=== PATIENT | female | born 1960 | race African-American/Black ===

== ENCOUNTER 2016-08-14 10:47 | Inpatient (IN) | payer OTHER ==
--- NOTE | 2016-08-14 11:00 | PDOC ---
[id number] No Limitations - History of Present Illness Initial Comments: 08/14/16 11:40 CHIEF COMPLAINT: Worsening of slurring of speech PCP: Dr. Kenneth Izquierdo HISTORY OF PRESENT ILLNESS: 55 year old female was sent to the ED from [facility] with chief complaints of worsening of slurring of speech. A/c to the patient, she had head surgery in March, for SDH. Since then she developed slurring of speech. Patient also reports to have burning sensation from right temporal area towards the back of her ears since the head surgery. She grades the pain as 8/10; non radiating, on/off, not associated with headache, dizziness, blurring of vision. Patient also reports to have abdominal pain since 10days, located in the epigastric area radiating towards the left upper quadrant, cramping in nature, on/off, relieved when sitting and aggravated on bending. Abdominal pain is associated with diarrhoea, 6-7 times/day since a week, small in amount, no blood noticed. Patient has not stopped drinking or smoking. Last drink was this morning. Bladder habit normal. Appetite decreased. Sleep disturbed. Patient mentions she hasn't been able to visit Dr. Morrissey because of insurance issues. Patient also would like to quit smoking and alcohol, would like to go to rehab, but says nobody has helped her get a rehab. Recent Travel: None PAST MEDICAL HISTORY: Hypertension, Hyperlipidemia, COPD, SDH (s/p craniotomy), depression/anxiety, Mitral valve repair PAST SURGICAL HISTORY: As mentioned above Social History: Smoking: Current smoker, 1pack/30yrs Alcohol: 1/2 bottle of vodka since 20 yrs Drugs: No use of illicit drugs Family History: Unknown Allergies: NKDA <Izzy Buenrostro - Last Filed: 08/14/16 17:42> <Aniyah Samayoa - Last Filed: 08/17/16 08:23> - General Chief Complaint: Headache Stated Complaint: POST OP, HEADACHE Time Seen by Provider: 08/14/16 11:00 Past History - Past Medical History Anemia: No Asthma: No Cancer: No Cardiac Disorders: Yes (CABG) CVA: No COPD: No CHF: No Dementia: No Diabetes: No GI Disorders: No Disorders: No HTN: Yes Hypercholesterolemia: Yes Liver Disease: No Psychiatric Problems: Yes (panic attacks) Suicide Attempt (Hx): No Seizures: No Thyroid Disease: No - Surgical History Abdominal Surgery: No Appendectomy: No Cardiac Surgery: Yes (01/2012 annuloplasty ring, cabg) Cholecystectomy: No Lung Surgery: No Neurologic Surgery: (BLEED S/P FALL) Orthopedic Surgery: No - Immunization History Immunization Up to Date: No - Psycho/Social/Smoking Cessation Hx Anxiety: No Suicidal Ideation: No Smoking Status: Yes Smoking History: Current every day smoker Have you smoked in the past 12 months: Yes Number of Cigarettes Smoked Daily: 20 Information on smoking cessation initiated: No 'Breaking Loose' booklet given: 04/18/16 Hx Alcohol Use: Yes (2 CUPS VODKA DAILY) Drug/Substance Use Hx: No Substance Use Type: Alcohol Hx Substance Use Treatment: No <Izzy Buenrostro - Last Filed: 08/14/16 17:42> <Aniyah Samayoa - Last Filed: 08/17/16 08:23> - Past Medical History Allergies/Adverse Reactions: Allergies Allergy/AdvReac Type Severity Reaction Status Date / Time No Known Allergies Allergy Verified 08/14/16 10:55 Home Medications: Ambulatory Orders NK [No Known Home Medication] 08/14/16 Review of Systems - Review of Systems Able to Perform ROS?: Yes Comments:: 08/14/16 11:56 CONSTITUTIONAL: Present: generalized weakness, malaise, loss of appetite Absent: fever, chills, diaphoresis, HEENT: Absent: rhinorrhea, nasal congestion, throat pain, throat swelling, difficulty swallowing, mouth swelling, ear pain, eye pain, visual Changes CARDIOVASCULAR: Absent: chest pain, syncope, palpitations, irregular heart rate, lightheadedness , peripheral edema RESPIRATORY: Absent: cough, shortness of breath, dyspnea with exertion, orthopnea, wheezing, stridor, hemoptysis GASTROINTESTINAL: Present: abdominal pain, diarrhea Absent:, abdominal distension, nausea, vomiting, constipation, melena, hematochezia GENITOURINARY: Absent: dysuria, frequency, urgency, hesitancy, hematuria, flank pain, genital pain MUSCULOSKELETAL: Absent: myalgia, arthralgia, joint swelling SKIN: Absent: rash, itching, pallor HEMATOLOGIC/IMMUNOLOGIC: Absent: easy bleeding, easy bruising, lymphadenopathy, frequent infections ENDOCRINE: Absent: unexplained weight gain, unexplained weight loss, heat intolerance, cold intolerance NEUROLOGIC: Present: unsteady gait Absent: headache, focal weakness or paresthesias, dizziness, seizure, mental status changes, bladder or bowel incontinence PSYCHIATRIC: Absent: anxiety, depression, suicidal or homicidal ideation, hallucinations. Is the patient limited Finnish proficient: No <Izzy Buenrostro - Last Filed: 08/14/16 17:42> *Physical Exam - Vital Signs Last Vital Signs Temp Pulse Resp BP Pulse Ox 97.7 F 113 H 18 119/83 97 08/14/16 10:50 08/14/16 10:50 08/14/16 10:50 08/14/16 10:50 08/14/16 10:50 - Physical Exam Comments: 08/14/16 12:01 PE: GENERAL: Awake, alert, and fully oriented, in no acute distress HEAD: surgical scar tejas on the left temporal area. EYES: EOM intact, muddy sclera, no pallor ENT: Auricles normal inspection, hearing grossly normal, nares patent, oropharynx clear without exudates. Moist mucosa NECK: Normal ROM, supple, no lymphadenopathy, JVD, or masses LUNGS: Breath sounds equal, clear to auscultation bilaterally. No wheezes, and no crackles. HEART: surgical scar tejas (MVP repair), Tachycardic, Regular rate and rhythm, normal S1 and S2, Systolic murmur ABDOMEN: Soft, tenderness on palpation over the epigastric area, left upper abdomen, normoactive bowel sounds. No guarding, no rebound. No masses EXTREMITIES: Normal range of motion, no edema. No clubbing or cyanosis. No cords, erythema, or tenderness NEUROLOGICAL: Cranial nerves II through XII grossly intact. Slurred speech while completing a full sentence, speech clear, normal articulation. SKIN: Warm, Dry, normal turgor, no rashes or lesions noted. <Izzy Buenrostro - Last Filed: 08/14/16 17:42> - Vital Signs Last Vital Signs Temp Pulse Resp BP Pulse Ox 98.4 F 91 H 18 127/81 100 08/17/16 06:05 08/17/16 06:05 08/17/16 06:05 08/17/16 06:05 08/16/16 21:00 <Aniyah Samayoa - Last Filed: 08/17/16 08:23> ED Treatment Course - LABORATORY CBC & Chemistry Diagram: 08/14/16 11:40 08/14/16 11:40 <Izzy Buenrostro - Last Filed: 08/14/16 17:42> - LABORATORY CBC & Chemistry Diagram: 08/16/16 06:00 08/16/16 06:00 - ADDITIONAL ORDERS Additional order review: 08/14/16 08/14/16 08/14/16 15:07 13:52 11:40 RBC 3.08 L D MCV 109.4 H MCHC 33.4 RDW 16.4 H MPV 9.3 Neutrophils % 58.8 Lymphocytes % 33.2 D Monocytes % 7.1 Eosinophils % 0.6 Basophils % 0.3 POC Glucometer 61.76008 < 50 - RADIOLOGY Radiology Studies Ordered: Category Date Time Status HEAD CT WITHOUT CONTRAST [CT] Stat CT Scan 08/14/16 15:30 Completed CHEST X-RAY PORTABLE* [RAD] Stat Radiology 08/14/16 12:55 Completed - Medications Given in the ED: ED Medications Discontinued Medications Generic Name Dose Route Start Last Admin Trade Name Tha PRN Reason Stop Dose Admin Al Hydroxide/Mg Hydroxide 30 ml 08/14/16 18:30 08/14/16 19:54 Mylanta Oral Suspension - PO 08/14/16 18:31 30 ml ONCE ONE Administration Dextrose 50 ml 08/14/16 12:26 08/14/16 12:27 D50w (Vial) - IVPUSH 08/14/16 12:27 50 ml NOW ONE Administration Dextrose 50 ml 08/14/16 13:54 08/14/16 13:55 D50w (Vial) - IVPUSH 08/14/16 13:55 50 ml NOW ONE Administration Folic Acid 1 mg/ Thiamine HCl 1,000 mls @ 100 mls/hr 08/14/16 11:37 08/14/16 12 :33 100 mg/ Multivitamins/Minerals IVPB 08/14/16 21:36 100 mls/hr 10 ml/ Sodium Chloride ONCE ONE Administration Potassium Chloride 100 mls @ 100 mls/hr 08/14/16 13:00 08/14/16 17:45 Potassium Chloride 10 Meq Premix Ivpb - IVPB 08/14/16 15:59 100 mls/hr Q60M DK Administration Sodium Chloride 1,000 mls @ 100 mls/hr 08/14/16 13:15 08/14/16 14:05 Normal Saline - IV 100 mls/hr ASDIR DK Administration Dextrose/Sodium Chloride 1,000 mls @ 83 mls/hr 08/14/16 14:30 08/15/16 17:12 D5-Ns - IV Not Given ASDIR DK Dextrose/Sodium Chloride 1,000 mls @ 75 mls/hr 08/15/16 15:28 08/15/16 15:29 D5-1/2ns - IV 08/16/16 04:47 75 mls/hr ASDIR ONE Administration Dextrose/Sodium Chloride 1,000 mls @ 75 mls/hr 08/15/16 21:50 08/16/16 00:00 D5-1/2ns - IV 08/16/16 11:09 75 mls/hr ASDIR ONE Administration Potassium Chloride 100 mls @ 100 mls/hr 08/15/16 23:15 08/16/16 03:19 Potassium Chloride 10 Meq Premix Ivpb - IVPB 08/16/16 02:14 100 mls/hr Q1H DK Administration Lorazepam 1.5 mg 08/15/16 06:00 08/16/16 15:07 Ativan - PO 1.5 mg TID DK Administration Potassium Chloride 40 meq 08/15/16 23:15 08/15/16 23:53 K-Dur - PO 08/15/16 23:16 40 meq ONCE ONE Administration <Aniyah Samayoa - Last Filed: 08/17/16 08:23> Medical Decision Making - Medical Decision Making 08/14/16 12:05 Patient seen and examined at bed side. Patient looks frustrated because of slurring of speech. Vitals unremarkable. Will order CbC, CMP, Magnesium, Phosphorus, Alcohol level, UA, Lipase IV Banana bag. Social service request once she gets admitted. 08/14/16 13:47 Patient reassessed. No complaints. Vitals noted, wnl. Labs noted: Hypokalemia ( 3.1), AG-24, Lipase high, Serum Alcohol +, ketones Ordered ABG which shows: Metabolic acidosis 08/14/16 15:30 Assessment/Plan: Alcoholic ketoacidosis Admit the patient in ICU for further evaluation Head CT done, report pending Spoke with Dr. Colon and Dr. Montaño, they accepted the patient. Illness, Investigation and plan of care explained to the patient. She verbalized understanding. Case seen and discussed with Dr. Samayoa. <Izzy Buenrostro - Last Filed: 08/14/16 17:42> - Critical Care Time Total Critical Care Time (minutes): 40 Critical Care Statement: The care of this patient involved high complexity decision making to prevent further life threatening deterioration of the patient 's condition and/or to evalute & treat vital organ system(s) failure or risk of failure. <Aniyah Samayoa - Last Filed: 08/17/16 08:23> *DC/Admit/Observation/Transfer - Discharge Dispostion Admit: Yes <Izzy Buenrostro - Last Filed: 08/14/16 17:42> <Aniyah Samayoa - Last Filed: 08/17/16 08:23> Diagnosis at time of Disposition: Alcoholic ketoacidosis, Alcohol dependence - Referrals
--- NOTE | 2016-08-14 11:08 | PDOC ---
Attending Attestation - Resident Resident Name: Izzy Buenrostro - ED Attending Attestation I have performed the following: I have examined & evaluated the patient, The case was reviewed & discussed with the resident, I agree w/resident's findings & plan, Exceptions are as noted - HPI HPI: 55 yo F history EtOH abuse sent by [facility]. She was seeking detox this morning , but was ill-appearing and noted to have slurred speech, so she was referred to ED. She states that she drinks vodka every single day, withdraws if she does not. Last drink this morning. She also smokes 1 PPD. She does not eat well according to her significant other, at the bedside. She denies any pain. He became concerned when her speech continued to be slurred this morning. - Physicial Exam PE: GENERAL: Awake, alert, and fully oriented, in no acute distress. Cachectic. HEAD: No signs of trauma EYES: PERRLA, EOMI, sclera anicteric, conjunctiva clear ENT: Auricles normal inspection, hearing grossly normal, nares patent, oropharynx clear without exudates. Moist mucosa NECK: Normal ROM, supple, no lymphadenopathy, JVD, or masses LUNGS: Breath sounds equal, clear to auscultation bilaterally. No wheezes, and no crackles HEART: Regular rate and rhythm, normal S1 and S2, no murmurs, rubs or gallops ABDOMEN: Soft, nontender, normoactive bowel sounds. No guarding, no rebound. No masses EXTREMITIES: Normal range of motion, no edema. No clubbing or cyanosis. No cords, erythema, or tenderness NEUROLOGICAL: Cranial nerves II through XII grossly intact. +Slurred speech. Motor and sensation grossly intact. SKIN: Warm, Dry, normal turgor, no rashes or lesions noted. - Medical Decision Making Patient is cachectic, appears chronically ill. She has tachycardia and slurred speech on exam. Labs show hypoglycemia, hypokalemia, elevated lipase (chronic per chart review). She has elevated anion gap, +acetone and +lactic acid, which suggests possibly a combination of AKA/lactic acidosis. Patient has had multiple hypoglycemic episodes despite eating a tray of food. Fluids were changed to D5NS. Will require ICU monitoring.
[2016-08-14] MEDS ORDERED: FOLIC ACID INJECTION - 1 MG, THIAMINE HCL 100 MG, MULTIVIT INJECTION ADULT 10 ML in SOD... IVPB ONE (11:37)
[2016-08-14 11:59] LABS: BASOPHIL 0.3 % (0-2.0); EOSINOPHIL 0.6 % (0-4.5); MCH 36.5 pg (25.7-33.7); MCHC 33.4 g/dl (32.0-36.0); MEAN CELL VOLUME 109.4 fl (80-96); MEAN PLT VOLUME 9.3 fl (7.5-11.1); NEUTROPHILS 58.8 % (42.8-82.8); PLATELET COUNT 138 K/MM3 (134-434); RDW 16.4 % (11.6-15.6); WHITE BLOOD COUNT 9.5 K/mm3 (4.0-10.0)
[2016-08-14 12:21] LABS: INR 1.07 (0.82-1.09); PROTHROMBIN TIME (PATIENT) 11.8 SEC (9.98-11.88)
[2016-08-14 12:23] LABS: ALBUMIN 4.3 g/dl (3.4-5.0); ANION GAP 24 (8-16); BILIRUBIN,TOTAL 0.4 mg/dL (0.2-1.0); CALCIUM 8.3 mg/dL (8.5-10.1); CO2 15 mmol/L (21-32); CREATININE 0.7 mg/dL (0.55-1.02); SGPT/ALT 23 U/L (12-78)
[2016-08-14 12:24] LABS: ALK PHOS 132 U/L (45-117)
[2016-08-14 12:25] LABS: MAGNESIUM 1.6 mg/dL (1.8-2.4); SGOT/AST 54 U/L (15-37)
[2016-08-14 12:26] LABS: GLUCOSE,RANDOM 27 mg/dL (74-106)
[2016-08-14] MEDS ORDERED: DEXTROSE 50%-WATER 50 ML VIAL IVPUSH ONE ×2 (12:26→13:54)
[2016-08-14] MEDS ORDERED: DEXTROSE 50%-WATER 50 ML DISP.SYRIN ONE ×2 (12:27→13:55)
[2016-08-14] MEDS ORDERED: SODIUM CHLORIDE 1,000 ML IV SCH (13:15)
[2016-08-14 13:26] LABS: ANISOCYTOSIS 1+; STOMATOCYTE 4+
[2016-08-14 13:40] LABS: ARTERIAL BLD GAS O2 SATURATION 94.7 % (90-98.9); ARTERIAL BLOOD GAS BASE EXCESS -16.2 meq/l (-2-2); ARTERIAL BLOOD GAS PO2 90.2 mmHg (80-100)
[2016-08-14 13:41] LABS: ALLENS TEST POSITIVE; ART PUNCT SITE RIGHT BRACHIAL; LPM/O2% 21%; PT. ON O2? NO; TYPE OF O2 ROOM AIR
[2016-08-14 13:42] LABS: ARTERIAL BLOOD GAS pH 7.26 (7.35-7.45)
[2016-08-14 13:43] LABS: ARTERIAL BLOOD GAS HCO3 9.3 meq/L (22-26)
[2016-08-14] MEDS ORDERED: KCL 10 MEQ IVPB 300 ML IVPB ONE (13:55)
[2016-08-14] MEDS: KCL 10 MEQ IVPB 100 ML IVPB SCH ×3 (14:30→17:45)
[2016-08-14 17:31] LABS: URINE APPEARANCE CLEAR; URINE BILIRUBIN NEGATIVE (NEGATIVE); URINE COLOR LTYELLOW; URINE GLUCOSE (UA) NEGATIVE (NEGATIVE); URINE KETONE 1+ (NEGATIVE); URINE LEUK ESTERASE NEGATIVE (NEGATIVE); URINE NITRITE NEGATIVE (NEGATIVE); URINE PROTEIN NEGATIVE (NEGATIVE); URINE UROBILINOGEN NEGATIVE E.U./dl (0.2-1.0)
[2016-08-14 17:32] LABS: URINE BLOOD 1+ (NEGATIVE)
[2016-08-14 17:37] LABS: URINE HYALINE CAST 2 /lpf; URINE MUCUS RARE; URINE RBC <1 /hpf (0-3); URINE WBC <1 /hpf (3-5)
[2016-08-14] MEDS: DEXTROSE 5%-NORMAL SALINE 1,000 ML IV SCH (17:45)
[2016-08-14] MEDS ORDERED: MAG HYDROX/AL HYDROX/SIMETH 30 ML UNIT-DOSE CUP PO ONE (18:30)
[2016-08-14] MEDS ORDERED: MAG HYDROX/AL HYDROX/SIMETH 30 ML UNIT-DOSE CUP ONE (19:38)
--- NOTE | 2016-08-14 23:13 | HP ---
Admitting History and Physical - Admission Chief Complaint: Slurred speech History of Present Illness: Pt is a 55 y/o female w/ multiple medical problems including head injury about 1 yr ago w/ resultant SDH and residual NELSON/slurred speech/ear pain/neck pain. Pt was sent to the ER bc of ?slurred speech [id number] pt was found to have glucose of 27. In the ER pt also complained of abdominal pain w/ an intensity of at 8/10. This abdominal pain was epigastric and LUQ and had episodes of nausea and vomiting. She was found to have elevated lipase and admitted top etoh abuse. Pt has been in rehab before and wants to go again. She drinks about pint of vodka a day and her last drink was on 08/14/16. History Source: Patient - Past Medical History HOSPITAL ADMINISTRATOR: Yes: Seizure, Other (SDH) Cardiovascular: Yes: HTN, Hyperlipdemia Pulmonary: Yes: COPD Gastrointestinal: Yes: Pancreatitis Heme/Onc: Yes: Anemia Psych: Yes: Addictions, Anxiety, Depression, Other (ETOH abuse) - Past Surgical History Additional Past Surgical History: Craniotomy Mitral valve replacement - Smoking History Smoking history: Current every day smoker Have you smoked in the past 12 months: Yes Aproximately how many cigarettes per day: 20 - Alcohol/Substance Use Hx Alcohol Use: Yes (2 CUPS VODKA DAILY) - Social History ADL: Independent History of Recent Travel: No Home Medications - Allergies Allergies/Adverse Reactions: Allergies Allergy/AdvReac Type Severity Reaction Status Date / Time No Known Allergies Allergy Verified 08/14/16 10:55 - Home Medications Home Medications: Ambulatory Orders NK [No Known Home Medication] 08/14/16 Family Disease History - Family Disease History Family History: Unremarkable Family Disease History: Diabetes: Father, Mother, Brother Review of Systems - Review of Systems Constitutional: reports: Lethargy, Loss of Appetite, Weakness Eyes: reports: No Symptoms HENT: reports: No Symptoms Neck: reports: Other (Neck pain wc radiates to parietal scalp and rt ear) Cardiovascular: reports: No Symptoms Respiratory: reports: No Symptoms Gastrointestinal: reports: Abdominal Pain, Diarrhea, Nausea, Vomiting Genitourinary: reports: No Symptoms Breasts: reports: No Symptoms Reported Musculoskeletal: reports: No Symptoms Neurological: reports: No Symptoms Psychiatric: reports: Anxiety, Depression Physical Examination Vital Signs: Vital Signs Temperature 97.7 F 08/14/16 10:50 Pulse Rate 108 H 08/14/16 17:51 Respiratory Rate 18 08/14/16 17:51 Blood Pressure 152/88 08/14/16 17:51 O2 Sat by Pulse Oximetry (%) 96 08/14/16 17:51 Constitutional: Yes: Poor Hygeine HENT: Yes: WNL Neck: Yes: WNL Cardiovascular: Yes: WNL, Other ((+) MARSHALL at [facility]) Gastrointestinal: Yes: WNL, Normal Bowel Sounds, Soft Breast(s): Yes: WNL Musculoskeletal: Yes: WNL Extremities: Yes: WNL Neurological: Yes: WNL, Alert, Oriented Problem List - Problems (1) Alcohol dependence with uncomplicated withdrawal Assessment/Plan: ETOH taper w/ ativan for alcohol w/drawal syndrome Cont IVF Cont thiamine/folic acid Will get rehab consult Code(s): F10.230 - ALCOHOL DEPENDENCE WITH WITHDRAWAL, UNCOMPLICATED (2) Alcoholic ketoacidosis Assessment/Plan: Cont IVF Code(s): E87.2 - ACIDOSIS (3) Pancreatitis Assessment/Plan: ETOH induced Repeat lipase/amylase May need US abd Cont full liquids Cont IVF and pain management Code(s): K85.9 - ACUTE PANCREATITIS, UNSPECIFIED * DO NOT USE * (4) Anxiety and depression Assessment/Plan: Pt is not on any meds Code(s): F41.9 - ANXIETY DISORDER, UNSPECIFIED F32.9 - MAJOR DEPRESSIVE DISORDER, SINGLE EPISODE, UNSPECIFIED (5) Hypokalemia Code(s): E87.6 - HYPOKALEMIA (6) Seizure Assessment/Plan: ?not on any meds Will need to check Code(s): R56.9 - UNSPECIFIED CONVULSIONS (7) Subdural hematoma Code(s): I62.00 - NONTRAUMATIC SUBDURAL HEMORRHAGE, UNSPECIFIED (8) H/O mitral valve repair Code(s): Z98.89 - OTHER SPECIFIED POSTPROCEDURAL STATES * DO NOT USE *
--- NOTE | 2016-08-15 00:33 | EKG ---
Test Reason : Blood Pressure : / mmHG Vent. Rate : 124 BPM Atrial Rate : 124 BPM P-R Int : 128 ms QRS Dur : 072 ms QT Int : 338 ms P-R-T Axes : 074 067 075 degrees QTc Int : 485 ms SINUS TACHYCARDIA POSSIBLE LEFT ATRIAL ENLARGEMENT CANNOT RULE OUT SEPTAL INFARCT , AGE UNDETERMINED ABNORMAL ECG WHEN COMPARED WITH ECG OF 14-JUN-2016 11:06, T WAVE VARIATION Confirmed by JOSELIN MARIE MD ([id number]) on 08/15/2016 12:33:07 AM Referred By: Confirmed By:JOSELIN MARIE MD
[2016-08-15] MEDS ORDERED: ONDANSETRON 4 MG/2 ML VIAL IVPB PRN (02:49)
[2016-08-15] MEDS: THIAMINE HCL 100 MG TABLET (FP) PO SCH ×2 (03:12→10:27)
[2016-08-15] MEDS ORDERED: LORazepam 0.5 MG TABLET ONE ×2 (06:19→15:18)
[2016-08-15] MEDS: LORazepam 1 MG TABLET PO SCH ×3 (06:30→21:35)
[2016-08-15 07:00] LABS: BASOPHIL 0.3 % (0-2.0); MCH 36.5 pg (25.7-33.7); MCHC 33.8 g/dl (32.0-36.0); MEAN PLT VOLUME 9.4 fl (7.5-11.1); NEUTROPHILS 66.8 % (42.8-82.8); PLATELET COUNT 100 K/MM3 (134-434); RDW 15.8 % (11.6-15.6); WHITE BLOOD COUNT 5.1 K/mm3 (4.0-10.0)
[2016-08-15 07:27] LABS: ALBUMIN 3.6 g/dl (3.4-5.0); ALK PHOS 114 U/L (45-117); ANION GAP 16 (8-16); BILIRUBIN,TOTAL 0.7 mg/dL (0.2-1.0); CALCIUM 7.9 mg/dL (8.5-10.1); CO2 23 mmol/L (21-32); CREATININE 0.4 mg/dL (0.55-1.02); GLUCOSE,RANDOM 95 mg/dL (74-106); SGOT/AST 38 U/L (15-37); SGPT/ALT 17 U/L (12-78); TOT PROT 6.9 g/dl (6.4-8.2)
[2016-08-15] MEDS: PANTOPRAZOLE 40 MG TABLET (FP) PO SCH (10:28)
[2016-08-15] MEDS: FOLIC ACID 1 MG TABLET (FP) PO SCH (10:28)
[2016-08-15 11:50] VITALS: BMI 13.7
[2016-08-15] MEDS ORDERED: DEXTROSE 5%-0.45% SALINE 1,000 ML IV ONE ×2 (15:28→21:50)
--- NOTE | 2016-08-15 16:20 | EKG ---
Test Reason : Blood Pressure : / mmHG Vent. Rate : 100 BPM Atrial Rate : 100 BPM P-R Int : 122 ms QRS Dur : 076 ms QT Int : 386 ms P-R-T Axes : 072 060 078 degrees QTc Int : 497 ms NORMAL SINUS RHYTHM POSSIBLE LEFT ATRIAL ENLARGEMENT NONSPECIFIC ST AND T WAVE ABNORMALITY PROLONGED QT ABNORMAL ECG WHEN COMPARED WITH ECG OF 14-AUG-2016 15:00, NO SIGNIFICANT CHANGE WAS FOUND Confirmed by FRANK VILLA, JOSELIN ([id number]) on 08/15/2016 4:19:55 PM Referred By: Confirmed By:JOSELIN MARIE MD
[2016-08-15] MEDS: DEXTROSE 5%-NORMAL SALINE 1,000 ML IV SCH (17:12)
--- NOTE | 2016-08-15 17:23 | CONSULT ---
Consult Consult Specialty:: PULM/CCM Referred by:: NAEL Reason for Consultation:: AMS - History of Present Illness Chief Complaint: Slurred speech History of Present Illness: 55 F, daily Vodka intake, 1 PPD smoker, (?) SDH surgery 2016. Admitted from [facility] after she was thought to develop slurring of speech. Patient reports somewhat a chronic burning sensation from right temporal area towards the back of her ears since the head surgery. =She also reports mid epigastric abdominal pain for about 10 days. Also reports diarrhea. No travel history or sick contacts. No documented fever or chills. Noted to have significant electrolyte disturbance. Started on IVF resuscitation. Noted improvement in mental status. Patient is awake and alert. No CP or SOB. - History Source History Provided By: Patient Limitations to Obtaining History: Poor Historian - Past Medical History CLARIFIER: Yes: Seizure, Other (SDH) Cardio/Vascular: Yes: HTN, Hyperlipdemia Pulmonary: Yes: COPD Gastrointestinal: Yes: Pancreatitis Psych: Yes: Addictions, Anxiety, Depression - Past Surgical History Past Surgical History: Yes: None (Craniotomy) - Alcohol/Substance Use Hx Alcohol Use: Yes (2 CUPS VODKA DAILY) - Smoking History Smoking history: Current every day smoker Have you smoked in the past 12 months: Yes Aproximately how many cigarettes per day: 20 - Social History ADL: Independent History of Recent Travel: No Home Medications - Allergies Allergies/Adverse Reactions: Allergies Allergy/AdvReac Type Severity Reaction Status Date / Time No Known Allergies Allergy Verified 08/14/16 10:55 - Home Medications Home Medications: Ambulatory Orders NK [No Known Home Medication] 08/14/16 Family Disease History - Family Disease History Family Disease History: Diabetes: Father, Mother, Brother Review of Systems - Review of Systems Constitutional: reports: Malaise, Weakness. denies: Chills, Fever, Night Sweats , Unintentional Wgt. Loss Eyes: reports: No Symptoms HENT: reports: No Symptoms Neck: reports: No Symptoms Cardiovascular: denies: Chest Pain, Edema, Palpitations, Shortness of Breath Respiratory: reports: Cough. denies: Hemoptysis, SOB, SOB on Exertion, Wheezing Gastrointestinal: reports: Diarrhea, Nausea, Vomiting. denies: Melena, Rectal Bleeding, Vomiting Blood Genitourinary: reports: No Symptoms Breasts: reports: No Symptoms Reported Musculoskeletal: reports: Back Pain Integumentary: reports: No Symptoms Neurological: reports: Change in Speech, Headache. denies: Dizziness, Seizure Endocrine: reports: No Symptoms Hematology/Lymphatic: reports: No Symptoms Psychiatric: reports: No Symptoms Physical Exam Vital Signs: Vital Signs Temperature 98.4 F 08/15/16 07:41 Pulse Rate 88 08/15/16 11:36 Respiratory Rate 18 08/15/16 11:36 Blood Pressure 148/104 08/15/16 11:36 O2 Sat by Pulse Oximetry (%) 100 08/15/16 11:36 Constitutional: Yes: No Distress, Thin Eyes: Yes: Conjunctiva Clear, EOM Intact HENT: Yes: Atraumatic, Normocephalic Neck: Yes: Supple, Trachea Midline Cardiovascular: Yes: Regular Rate and Rhythm Respiratory: Yes: CTA Bilaterally Gastrointestinal: Yes: Normal Bowel Sounds, Soft, Tenderness, Epigastrium, Vomiting. No: Palpable Mass, Pulsatile Mass ...Rectal Exam: Yes: Deferred Musculoskeletal: Yes: WNL Extremities: Yes: WNL Edema: No Peripheral Pulses WNL: No Integumentary: Yes: WNL Neurological: Yes: Alert, Oriented ...Motor Strength: WNL Psychiatric: Yes: Alert, Oriented Labs: CBC, BMP 08/15/16 06:45 08/15/16 06:45 Imaging - Results Chest X-ray: Report Reviewed, Image Reviewed Problem List - Problems (1) Alcohol dependence Code(s): F10.20 - ALCOHOL DEPENDENCE, UNCOMPLICATED (2) Alcoholic ketoacidosis Code(s): E87.2 - ACIDOSIS (3) Alcohol dependence with uncomplicated withdrawal Code(s): F10.230 - ALCOHOL DEPENDENCE WITH WITHDRAWAL, UNCOMPLICATED (4) Anemia Code(s): D64.9 - ANEMIA, UNSPECIFIED (5) Anxiety and depression Code(s): F41.9 - ANXIETY DISORDER, UNSPECIFIED F32.9 - MAJOR DEPRESSIVE DISORDER, SINGLE EPISODE, UNSPECIFIED (6) Dehydration Code(s): E86.0 - DEHYDRATION (7) H/O mitral valve repair Code(s): Z98.89 - OTHER SPECIFIED POSTPROCEDURAL STATES * DO NOT USE * (8) Head injury, closed Code(s): S09.90XA - UNSPECIFIED INJURY OF HEAD, INITIAL ENCOUNTER Qualifiers: Encounter type: initial encounter Qualified Code(s): S09.90XA - Unspecified injury of head, initial encounter (9) Nausea vomiting and diarrhea Code(s): R11.2 - NAUSEA WITH VOMITING, UNSPECIFIED R19.7 - DIARRHEA, UNSPECIFIED (10) Seizure Code(s): R56.9 - UNSPECIFIED CONVULSIONS (11) Subdural hematoma Code(s): I62.00 - NONTRAUMATIC SUBDURAL HEMORRHAGE, UNSPECIFIED Assessment/Plan IVF Monitor for withdrawal No smoking VTE prophylaxis PO as tolerated No need for ICU at this time Will follow Thank you. Dr Farrell
[2016-08-15 22:30] LABS: BASOPHIL 0.4 % (0-2.0); MCH 36.8 pg (25.7-33.7); MCHC 34.6 g/dl (32.0-36.0); MEAN CELL VOLUME 106.3 fl (80-96); MEAN PLT VOLUME 8.7 fl (7.5-11.1); PLATELET COUNT 102 K/MM3 (134-434); RDW 15.3 % (11.6-15.6); WHITE BLOOD COUNT 3.9 K/mm3 (4.0-10.0)
[2016-08-15 22:49] LABS: ALBUMIN 3.3 g/dl (3.4-5.0); ANION GAP 13 (8-16); BILIRUBIN,TOTAL 0.5 mg/dL (0.2-1.0); CALCIUM 7.7 mg/dL (8.5-10.1); CO2 21 mmol/L (21-32); CREATININE 0.7 mg/dL (0.55-1.02); GLUCOSE,RANDOM 135 mg/dL (74-106); SGOT/AST 34 U/L (15-37); SGPT/ALT 16 U/L (12-78); TOT PROT 6.6 g/dl (6.4-8.2)
[2016-08-15 22:50] LABS: ALK PHOS 116 U/L (45-117)
[2016-08-15 23:04] LABS: AMYLASE 318 U/L (25-115)
[2016-08-15] MEDS ORDERED: POTASSIUM CHLORIDE TABS 20 MEQ TABLET.ER (FP) PO ONE (23:15)
[2016-08-15] MEDS: KCL 10 MEQ IVPB 100 ML IVPB SCH (23:53)
[2016-08-16] MEDS: KCL 10 MEQ IVPB 100 ML IVPB SCH ×2 (01:34→03:19)
[2016-08-16 04:24] LABS: ANISOCYTOSIS 1+; PLATELET ESTIMATE SLT DECREASED (NORMAL)
[2016-08-16] MEDS: LORazepam 1 MG TABLET PO SCH ×2 (05:27→15:07)
[2016-08-16 07:28] LABS: BASOPHIL 0.5 % (0-2.0); EOSINOPHIL 1.8 % (0-4.5); MCH 36.8 pg (25.7-33.7); MCHC 34.3 g/dl (32.0-36.0); MEAN PLT VOLUME 9.5 fl (7.5-11.1); PLATELET COUNT 94 K/MM3 (134-434); RDW 15.7 % (11.6-15.6); WHITE BLOOD COUNT 4.2 K/mm3 (4.0-10.0)
[2016-08-16 07:49] LABS: ALBUMIN 3.4 g/dl (3.4-5.0); ANION GAP 9 (8-16); CALCIUM 7.9 mg/dL (8.5-10.1); CO2 23 mmol/L (21-32); GLUCOSE,RANDOM 154 mg/dL (74-106)
[2016-08-16 07:55] LABS: ALK PHOS 106 U/L (45-117); BILIRUBIN,TOTAL 0.5 mg/dL (0.2-1.0); CREATININE 0.5 mg/dL (0.55-1.02); SGOT/AST 41 U/L (15-37); SGPT/ALT 15 U/L (12-78); TOT PROT 6.4 g/dl (6.4-8.2)
[2016-08-16] MEDS: THIAMINE HCL 100 MG TABLET (FP) PO SCH (10:28)
[2016-08-16] MEDS: PANTOPRAZOLE 40 MG TABLET (FP) PO SCH (10:28)
[2016-08-16] MEDS: FOLIC ACID 1 MG TABLET (FP) PO SCH (10:28)
[2016-08-16] MEDS: NICOTINE 14 MG/24 HOURS TOPICAL PATCH TD SCH (15:19)
--- NOTE | 2016-08-16 18:37 | CON.GI ---
Consult Consult Specialty:: gastroenterology Reason for Consultation:: pancreatitis - History of Present Illness History of Present Illness: 55 year old female was sent to the ED from [facility] with chief complaints of worsening of slurring of speech. A/c to the patient, she had head surgery in March, for SDH. Since then she developed slurring of speech. Patient also reports to have burning sensation from right temporal area towards the back of her ears since the head surgery. She grades the pain as 8/10; non radiating, on/off, not associated with headache, dizziness, blurring of vision. Patient also reports to have abdominal pain since 10days, located in the epigastric area radiating towards the left upper quadrant, cramping in nature, on/off, relieved when sitting and aggravated on bending. Abdominal pain is associated with diarrhoea, 6-7 times/day since a week, small in amount, no blood noticed. Patient has not stopped drinking or smoking. Last drink was this morning. Bladder habit normal. Appetite decreased. Sleep disturbed. Patient mentions she hasn't been able to visit Dr. Morrissey because of insurance issues. Patient also would like to quit smoking and alcohol, would like to go to rehab, but says nobody has helped her get a rehab. S/p CT in May which revealed prominent head of the pancreas. MRI was normal. Patient denies abdominal pain, nausea and vomiting - Past Medical History SNACK [employer]: Yes: Seizure, Other (SDH) Cardio/Vascular: Yes: HTN, Hyperlipdemia Pulmonary: Yes: COPD Gastrointestinal: Yes: Pancreatitis Psych: Yes: Addictions, Anxiety, Depression, Other (ETOH abuse) - Past Surgical History Past Surgical History: Yes: None (Craniotomy) - Alcohol/Substance Use Hx Alcohol Use: Yes (2 CUPS VODKA DAILY) - Smoking History Smoking history: Current every day smoker Have you smoked in the past 12 months: Yes Aproximately how many cigarettes per day: 20 - Social History ADL: Independent History of Recent Travel: No Home Medications - Allergies Allergies/Adverse Reactions: Allergies Allergy/AdvReac Type Severity Reaction Status Date / Time No Known Allergies Allergy Verified 08/14/16 10:55 - Home Medications Home Medications: Ambulatory Orders NK [No Known Home Medication] 08/14/16 Family Disease History - Family Disease History Family Disease History: Diabetes: Father, Mother, Brother Physical Exam-GI Vital Signs: Vital Signs Temperature 97.5 F L 08/16/16 18:00 Pulse Rate 85 08/16/16 18:00 Respiratory Rate 18 08/16/16 18:00 Blood Pressure 138/90 08/16/16 18:00 O2 Sat by Pulse Oximetry (%) 100 08/16/16 09:00 Constitutional: Yes: Well Nourished Eyes: Yes: Conjunctiva Clear HENT: Yes: Atraumatic Neck: Yes: Supple Cardiovascular: Yes: Regular Rate and Rhythm Respiratory: Yes: CTA Bilaterally ...Palpate: Yes: Soft. No: Firm/Rigid, Guarding, Hepatomegaly, Mass, Pulsatile Mass, Splenomegaly, Tenderness Labs: CBC, BMP 08/16/16 06:00 08/16/16 06:00 INR, PTT INR 1.07 (0.82-1.09) 08/14/16 11:52 CBCD WBC 4.2 K/mm3 (4.0-10.0) 08/16/16 06:00 RBC 2.52 M/mm3 (3.60-5.2) L 08/16/16 06:00 Hgb 9.2 GM/dL (10.7-15.3) L 08/16/16 06:00 Hct 26.9 % (32.4-45.2) L 08/16/16 06:00 MCV 107.0 fl (80-96) H 08/16/16 06:00 MCHC 34.3 g/dl (32.0-36.0) 08/16/16 06:00 RDW 15.7 % (11.6-15.6) H 08/16/16 06:00 Plt Count 94 K/MM3 (134-434) L 08/16/16 06:00 MPV 9.5 fl (7.5-11.1) 08/16/16 06:00 CMP Sodium 135 mmol/L (136-145) L 08/16/16 06:00 Potassium 3.9 mmol/L (3.5-5.1) D 08/16/16 06:00 Chloride 103 mmol/L (98-107) 08/16/16 06:00 Carbon Dioxide 23 mmol/L (21-32) 08/16/16 06:00 Anion Gap 9 (8-16) 08/16/16 06:00 BUN 4 mg/dL (7-18) L D 08/16/16 06:00 Creatinine 0.5 mg/dL (0.55-1.02) L D 08/16/16 06:00 Creat Clearance w eGFR > 60 (>60) 08/16/16 06:00 Calcium 7.9 mg/dL (8.5-10.1) L 08/16/16 06:00 Total Bilirubin 0.5 mg/dL (0.2-1.0) 08/16/16 06:00 AST 41 U/L (15-37) H D 08/16/16 06:00 ALT 15 U/L (12-78) 08/16/16 06:00 Alkaline Phosphatase 106 U/L (45-117) 08/16/16 06:00 Total Protein 6.4 g/dl (6.4-8.2) 08/16/16 06:00 Albumin 3.4 g/dl (3.4-5.0) 08/16/16 06:00 Problem List - Problems (1) Alcohol-induced pancreatitis Assessment/Plan: R> continue detox protocol advance diet as tolerated repeat ct in 3 mos if pain recurrs Code(s): K85.2 - ALCOHOL INDUCED ACUTE PANCREATITIS * DO NOT USE *
--- NOTE | 2016-08-16 19:36 | PN ---
Progress Note, Physician History of Present Illness: Pt lethargic - Current Medication List Current Medications: Active Medications Folic Acid (Folic Acid -) 1 mg PO DAILY [facility] Last Admin: 08/16/16 10:28 Dose: 1 mg Lorazepam (Ativan -) 1.5 mg PO TID [facility] Last Admin: 08/16/16 15:07 Dose: 1.5 mg Nicotine (Nicoderm Patch -) 14 mg TD DAILY [facility] Last Admin: 08/16/16 15:19 Dose: 14 mg Ondansetron HCl (Zofran Injection) 4 mg IVPB Q8H PRN PRN Reason: NAUSEA Pantoprazole Sodium (Protonix -) 40 mg PO DAILY [facility] Last Admin: 08/16/16 10:28 Dose: 40 mg Thiamine HCl (Vitamin B1 -) 100 mg PO DAILY [facility] Last Admin: 08/16/16 10:28 Dose: 100 mg - Objective Vital Signs: Vital Signs Temperature 97.5 F L 08/16/16 18:00 Pulse Rate 85 08/16/16 18:00 Respiratory Rate 18 08/16/16 18:00 Blood Pressure 138/90 08/16/16 18:00 O2 Sat by Pulse Oximetry (%) 100 08/16/16 09:00 Constitutional: Yes: Cachectic Neck: Yes: Supple Cardiovascular: Yes: WNL, Regular Rate and Rhythm Respiratory: Yes: WNL, Regular, CTA Bilaterally Gastrointestinal: Yes: Tenderness, Epigastrium Labs: CBC, BMP 08/16/16 06:00 08/16/16 06:00 INR, PTT INR 1.07 (0.82-1.09) 08/14/16 11:52 Problem List - Problems (1) Alcohol dependence with uncomplicated withdrawal Assessment/Plan: ETOH taper w/ ativan for alcohol w/drawal syndrome Will decrease ativan Cont IVF Cont thiamine/folic acid Code(s): F10.230 - ALCOHOL DEPENDENCE WITH WITHDRAWAL, UNCOMPLICATED (2) Alcoholic ketoacidosis Assessment/Plan: Cont IVF Code(s): E87.2 - ACIDOSIS (3) Pancreatitis Assessment/Plan: ETOH induced Repeat lipase/amylase Cont IVF and pain management CT scan abd showed pancreatitis Code(s): K85.9 - ACUTE PANCREATITIS, UNSPECIFIED * DO NOT USE * (4) Anxiety and depression Code(s): F41.9 - ANXIETY DISORDER, UNSPECIFIED F32.9 - MAJOR DEPRESSIVE DISORDER, SINGLE EPISODE, UNSPECIFIED (5) Hypokalemia Code(s): E87.6 - HYPOKALEMIA (6) Seizure Code(s): R56.9 - UNSPECIFIED CONVULSIONS (7) Subdural hematoma Code(s): I62.00 - NONTRAUMATIC SUBDURAL HEMORRHAGE, UNSPECIFIED (8) H/O mitral valve repair Code(s): Z98.89 - OTHER SPECIFIED POSTPROCEDURAL STATES * DO NOT USE *
[2016-08-17] MEDS: LORazepam 1 MG TABLET PO SCH ×2 (06:08→13:45)
[2016-08-17] MEDS: NICOTINE 14 MG/24 HOURS TOPICAL PATCH TD SCH (09:51)
[2016-08-17] MEDS: PANTOPRAZOLE 40 MG TABLET (FP) PO SCH (09:51)
[2016-08-17] MEDS: FOLIC ACID 1 MG TABLET (FP) PO SCH (09:51)
[2016-08-17] MEDS: THIAMINE HCL 100 MG TABLET (FP) PO SCH (09:51)
[2016-08-17] MEDS ORDERED: chlordiazePOXIDE HCL 25 MG CAPSULE PO PRN (14:25)
--- NOTE | 2016-08-17 14:30 | CONSULT ---
Consult Detox [facility] Reason for Current Admission/Consult: Alcohol withdrawal sx. Referred by:: Aniyah Colon MD - History History of Present Illness: 55 y/o woman known to me from previous admission is seen for alcohol withdrawal sx. 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, Other (SDH) Cardio/Vascular: Yes: HTN, Hyperlipdemia Pulmonary: Yes: COPD Gastrointestinal: Yes: Pancreatitis Psych: Yes: Addictions, Anxiety, Depression, Other (ETOH abuse) - Past Surgical History Past Surgical History: Yes: None (Craniotomy) - Significant Medical Findings: Laboratory Last Values WBC 4.2 K/mm3 (4.0-10.0) 08/18/16 06:00 RBC 2.75 M/mm3 (3.60-5.2) L 08/18/16 06:00 Hgb 9.9 GM/dL (10.7-15.3) L 08/18/16 06:00 Hct 30.0 % (32.4-45.2) L 08/18/16 06:00 MCV 109.0 fl (80-96) H 08/18/16 06:00 MCHC 33.0 g/dl (32.0-36.0) 08/18/16 06:00 RDW 15.4 % (11.6-15.6) 08/18/16 06:00 Plt Count 130 K/MM3 (134-434) L D 08/18/16 06:00 MPV 10.3 fl (7.5-11.1) 08/18/16 06:00 Neutrophils % 51.9 % (42.8-82.8) 08/18/16 06:00 Lymphocytes % 35.2 % (8-40) 08/18/16 06:00 Monocytes % 9.9 % (3.8-10.2) 08/18/16 06:00 Eosinophils % 2.7 % (0-4.5) 08/18/16 06:00 Basophils % 0.3 % (0-2.0) 08/18/16 06:00 Platelet Estimate Slt decreased (NORMAL) 08/15/16 22:15 Anisocytosis 1+ 08/15/16 22:15 Macrocytosis 2+ 08/15/16 22:15 Stomatocytes 4+ 08/14/16 11:40 Morphology Comment Slide scanned 08/15/16 22:15 INR 1.07 (0.82-1.09) 08/14/16 11:52 Puncture Site Right brachial 08/14/16 13:35 ABG pH 7.26 (7.35-7.45) L 08/14/16 13:35 ABG pCO2 at Pt Temp 21.6 mmHg (35-45) L 08/14/16 13:35 ABG pO2 at Pt Temp 90.2 mmHg (80-100) 08/14/16 13:35 ABG HCO3 9.3 meq/L (22-26) L* 08/14/16 13:35 ABG O2 Sat (Measured) 94.7 % (90-98.9) 08/14/16 13:35 ABG O2 Content 11.9 % vol (15-22) L 08/14/16 13:35 ABG Base Excess -16.2 meq/l (-2-2) L* 08/14/16 13:35 Barney Test Positive 08/14/16 13:35 O2 Delivery Device Room air 08/14/16 13:35 Oxygen Flow Rate 21% 08/14/16 13:35 PEEP 0.0 cmH2O 08/14/16 13:35 Sodium 139 mmol/L (136-145) 08/18/16 06:00 Potassium 4.0 mmol/L (3.5-5.1) 08/18/16 06:00 Chloride 103 mmol/L (98-107) 08/18/16 06:00 Carbon Dioxide 26 mmol/L (21-32) 08/18/16 06:00 Anion Gap 10 (8-16) 08/18/16 06:00 BUN 10 mg/dL (7-18) D 08/18/16 06:00 Creatinine 0.5 mg/dL (0.55-1.02) L 08/18/16 06:00 Creat Clearance w eGFR > 60 (>60) 08/18/16 06:00 POC Glucometer 116 UNITS (()) 08/16/16 21:56 Random Glucose 103 mg/dL (74-106) D 08/18/16 06:00 Lactic Acid 0.100 mmol/L (0.4-2.0) L 08/14/16 19:40 Calcium 9.8 mg/dL (8.5-10.1) D 08/18/16 06:00 Phosphorus Cancelled 08/14/16 11:52 Magnesium Cancelled 08/14/16 11:52 Total Bilirubin 0.3 mg/dL (0.2-1.0) D 08/18/16 06:00 AST 42 U/L (15-37) H 08/18/16 06:00 ALT 22 U/L (12-78) D 08/18/16 06:00 Alkaline Phosphatase 103 U/L (45-117) 08/18/16 06:00 Total Protein 6.8 g/dl (6.4-8.2) 08/18/16 06:00 Albumin 3.4 g/dl (3.4-5.0) 08/18/16 06:00 Total Amylase 220 U/L (25-115) H D 08/18/16 06:00 Lipase 1738 U/L (73-393) H 08/18/16 06:00 Urine Color Ltyellow 08/14/16 17:00 Urine Appearance Clear 08/14/16 17:00 Urine pH 6.0 (5.0-8.0) 08/14/16 17:00 Ur Specific [place] 1.009 (1.001-1.035) 08/14/16 17:00 Urine Protein Negative (NEGATIVE) 08/14/16 17:00 Urine Glucose (UA) Negative (NEGATIVE) 08/14/16 17:00 Urine Ketones 1+ (NEGATIVE) H 08/14/16 17:00 Urine Blood 1+ (NEGATIVE) H 08/14/16 17:00 Urine Nitrite Negative (NEGATIVE) 08/14/16 17:00 Urine Bilirubin Negative (NEGATIVE) 08/14/16 17:00 Urine Urobilinogen Negative E.U./dl (0.2-1.0) 08/14/16 17:00 Ur Leukocyte Esterase Negative (NEGATIVE) 08/14/16 17:00 Urine RBC <1 /hpf (0-3) 08/14/16 17:00 Urine WBC <1 /hpf (3-5) 08/14/16 17:00 Ur Epithelial Cells Rare /hpf (FEW) 08/14/16 17:00 Hyaline Casts 2 /lpf 08/14/16 17:00 Urine Mucus Rare 08/14/16 17:00 Alcohol, Quantitative 254.7 mg/dl (0-5) H* 08/14/16 11:40 Acetone, Qual Positive small 1+ (NEGATIVE) H 08/14/16 13:19 labs noted CIWA Score - CIWA Score Nausea/Vomitin Muscle Tremors: 4-Moderate,w/Arms Extend Anxiety: 4-Mod. Anxious/Guarded Agitation: 4-Moderately Restless Paroxysmal Sweats: 3 Orientation: 0-Oriented Tacttile Disturbances: 0-None Auditory Disturbances: 0-None Visual Disturbances: 0-None Headache: 1-Very Mild CIWA-Ar Total Score: 18 Assessment Plan - Diagnosis (1) Alcohol dependence with uncomplicated withdrawal Status: Acute - Plan Plan: Pt. needs skilled nursing treatment,however she claims that she's unable to because of financial obligation. - Medication Detox Regimen/Protocol: Camila
[2016-08-17] MEDS ORDERED: chlordiazePOXIDE HCL 25 MG CAPSULE PO ONE (16:15)
[2016-08-17] MEDS: chlordiazePOXIDE HCL 25 MG CAPSULE PO SCH ×2 (16:59→22:06)
--- NOTE | 2016-08-17 21:30 | PN ---
Progress Note, Physician - Current Medication List Current Medications: Active Medications Chlordiazepoxide HCl (Librium -) 25 mg PO Q4H PRN PRN Reason: WITHDRAWAL(CONT SUBST) Stop: 08/20/16 14:24 Chlordiazepoxide HCl (Librium -) 50 mg PO [id number] [facility] Stop: 08/18/16 11:01 Last Admin: 08/17/16 16:59 Dose: Not Given Chlordiazepoxide HCl (Librium -) 25 mg PO [id number] [facility] Stop: 08/19/16 11:01 Chlordiazepoxide HCl (Librium -) 15 mg PO [id number] [facility] Stop: 08/20/16 11:01 Folic Acid (Folic Acid -) 1 mg PO DAILY [facility] Last Admin: 08/17/16 09:51 Dose: 1 mg Lorazepam (Ativan -) 1 mg PO TID [facility] Last Admin: 08/17/16 13:45 Dose: 1 mg Nicotine (Nicoderm Patch -) 14 mg TD DAILY [facility] Last Admin: 08/17/16 09:51 Dose: 14 mg Ondansetron HCl (Zofran Injection) 4 mg IVPB Q8H PRN PRN Reason: NAUSEA Pantoprazole Sodium (Protonix -) 40 mg PO DAILY [facility] Last Admin: 08/17/16 09:51 Dose: 40 mg Thiamine HCl (Vitamin B1 -) 100 mg PO DAILY [facility] Last Admin: 08/17/16 09:51 Dose: 100 mg - Objective Vital Signs: Vital Signs Temperature 97.5 F L 08/17/16 20:14 Pulse Rate 86 08/17/16 20:14 Respiratory Rate 18 08/17/16 20:14 Blood Pressure 125/81 08/17/16 20:14 O2 Sat by Pulse Oximetry (%) 100 08/17/16 09:00 Labs: CBC, BMP 08/16/16 06:00 08/16/16 06:00 INR, PTT INR 1.07 (0.82-1.09) 08/14/16 11:52 Problem List - Problems (1) Alcohol dependence with uncomplicated withdrawal Code(s): F10.230 - ALCOHOL DEPENDENCE WITH WITHDRAWAL, UNCOMPLICATED (2) Alcoholic ketoacidosis Code(s): E87.2 - ACIDOSIS (3) Pancreatitis Code(s): K85.9 - ACUTE PANCREATITIS, UNSPECIFIED * DO NOT USE * (4) Anxiety and depression Code(s): F41.9 - ANXIETY DISORDER, UNSPECIFIED F32.9 - MAJOR DEPRESSIVE DISORDER, SINGLE EPISODE, UNSPECIFIED (5) Hypokalemia Code(s): E87.6 - HYPOKALEMIA (6) Seizure Code(s): R56.9 - UNSPECIFIED CONVULSIONS (7) Subdural hematoma Code(s): I62.00 - NONTRAUMATIC SUBDURAL HEMORRHAGE, UNSPECIFIED (8) H/O mitral valve repair Code(s): Z98.89 - OTHER SPECIFIED POSTPROCEDURAL STATES * DO NOT USE *
[2016-08-18] MEDS: chlordiazePOXIDE HCL 25 MG CAPSULE PO SCH ×4 (05:59→23:10)
[2016-08-18 07:32] LABS: BASOPHIL 0.3 % (0-2.0); EOSINOPHIL 2.7 % (0-4.5); MEAN PLT VOLUME 10.3 fl (7.5-11.1); NEUTROPHILS 51.9 % (42.8-82.8); PLATELET COUNT 130 K/MM3 (134-434); RDW 15.4 % (11.6-15.6); WHITE BLOOD COUNT 4.2 K/mm3 (4.0-10.0)
[2016-08-18 07:49] LABS: ALBUMIN 3.4 g/dl (3.4-5.0); AMYLASE 220 U/L (25-115); ANION GAP 10 (8-16); BILIRUBIN,TOTAL 0.3 mg/dL (0.2-1.0); CALCIUM 9.8 mg/dL (8.5-10.1); CO2 26 mmol/L (21-32); CREATININE 0.5 mg/dL (0.55-1.02); GLUCOSE,RANDOM 103 mg/dL (74-106); SGOT/AST 42 U/L (15-37); SGPT/ALT 22 U/L (12-78); TOT PROT 6.8 g/dl (6.4-8.2)
[2016-08-18 07:50] LABS: ALK PHOS 103 U/L (45-117)
[2016-08-18] MEDS: NICOTINE 14 MG/24 HOURS TOPICAL PATCH TD SCH (09:52)
[2016-08-18] MEDS: PANTOPRAZOLE 40 MG TABLET (FP) PO SCH (09:53)
[2016-08-18] MEDS: THIAMINE HCL 100 MG TABLET (FP) PO SCH (09:53)
[2016-08-18] MEDS: FOLIC ACID 1 MG TABLET (FP) PO SCH (09:53)
--- NOTE | 2016-08-18 23:32 | PN ---
Progress Note, Physician - Current Medication List Current Medications: Active Medications Chlordiazepoxide HCl (Librium -) 25 mg PO Q4H PRN PRN Reason: WITHDRAWAL(CONT SUBST) Stop: 08/20/16 14:24 Chlordiazepoxide HCl (Librium -) 25 mg PO [id number] [facility] Stop: 08/19/16 11:01 Last Admin: 08/18/16 17:09 Dose: 25 mg Chlordiazepoxide HCl (Librium -) 15 mg PO [id number] [facility] Stop: 08/20/16 11:01 Folic Acid (Folic Acid -) 1 mg PO DAILY [facility] Last Admin: 08/18/16 09:53 Dose: 1 mg Nicotine (Nicoderm Patch -) 14 mg TD DAILY [facility] Last Admin: 08/18/16 09:52 Dose: 14 mg Ondansetron HCl (Zofran Injection) 4 mg IVPB Q8H PRN PRN Reason: NAUSEA Pantoprazole Sodium (Protonix -) 40 mg PO DAILY [facility] Last Admin: 08/18/16 09:53 Dose: 40 mg Thiamine HCl (Vitamin B1 -) 100 mg PO DAILY [facility] Last Admin: 08/18/16 09:53 Dose: 100 mg - Objective Vital Signs: Vital Signs Temperature 98.4 F 08/18/16 18:00 Pulse Rate 70 08/18/16 18:00 Respiratory Rate 20 08/18/16 18:00 Blood Pressure 138/76 08/18/16 18:00 O2 Sat by Pulse Oximetry (%) 100 08/18/16 09:00 Labs: CBC, BMP 08/18/16 06:00 08/18/16 06:00 INR, PTT INR 1.07 (0.82-1.09) 08/14/16 11:52 Problem List - Problems (1) Alcohol dependence with uncomplicated withdrawal Code(s): F10.230 - ALCOHOL DEPENDENCE WITH WITHDRAWAL, UNCOMPLICATED (2) Alcoholic ketoacidosis Code(s): E87.2 - ACIDOSIS (3) Pancreatitis Code(s): K85.9 - ACUTE PANCREATITIS, UNSPECIFIED * DO NOT USE * (4) Anxiety and depression Code(s): F41.9 - ANXIETY DISORDER, UNSPECIFIED F32.9 - MAJOR DEPRESSIVE DISORDER, SINGLE EPISODE, UNSPECIFIED (5) Hypokalemia Code(s): E87.6 - HYPOKALEMIA (6) Seizure Code(s): R56.9 - UNSPECIFIED CONVULSIONS (7) Subdural hematoma Code(s): I62.00 - NONTRAUMATIC SUBDURAL HEMORRHAGE, UNSPECIFIED (8) H/O mitral valve repair Code(s): Z98.89 - OTHER SPECIFIED POSTPROCEDURAL STATES * DO NOT USE *
[2016-08-19] MEDS: chlordiazePOXIDE HCL 25 MG CAPSULE PO SCH ×2 (05:11→10:19)
[2016-08-19] MEDS: THIAMINE HCL 100 MG TABLET (FP) PO SCH (10:16)
[2016-08-19] MEDS: FOLIC ACID 1 MG TABLET (FP) PO SCH (10:16)
[2016-08-19] MEDS: NICOTINE 14 MG/24 HOURS TOPICAL PATCH TD SCH (10:16)
[2016-08-19] MEDS: PANTOPRAZOLE 40 MG TABLET (FP) PO SCH (10:16)
[2016-08-19 13:03] VITALS: BP 123/88; PULSE 87; TEMP 98.1
[2016-08-19] MEDS ORDERED: chlordiazePOXIDE 5 MG CAPSULE PO SCH (17:00)
== END 2016-08-19 12:24 | disposition other institution (70) | DRG 422 ==
LOC: JER 10:47 → JERBED 16:08 → J7W 08-15 19:35
PROVIDERS: ADMIT Internal Medicine; ATTEND Internal Medicine
PROC: HZ2ZZZZ Detoxification Services for Substance Abuse Treatment (ICD-10-PCS; principal; 2016-08-17)
DX: E86.0 Dehydration (principal); E87.2 Acidosis; F10.230 Alcohol dependence with withdrawal, uncomplicated; F32.9 Major depressive disorder, single episode, unspecified; E87.6 Hypokalemia; R47.81 Slurred speech; R10.13 Epigastric pain; F41.0 Panic disorder [episodic paroxysmal anxiety]; F17.210 Nicotine dependence, cigarettes, uncomplicated; R64 Cachexia; Z68.1 Body mass index [BMI] 19.9 or less, adult; R00.0 Tachycardia, unspecified; E16.2 Hypoglycemia, unspecified; J44.9 Chronic obstructive pulmonary disease, unspecified; K86.0 Alcohol-induced chronic pancreatitis
CPT/HCPCS: 36415; 36600; 70450-TC; 71010-TC; 74170-TC; 76700-TC; 80053; 80307; 81003; 81015; 82009; 82150; 82803; 83605; 83690; 83735; 84100; 85025; 85610; 93005; 93010; 99285-25; Q9967

== ENCOUNTER 2016-08-19 12:35 | Inpatient (IN) | payer OTHER ==
[2016-08-19 14:10] VITALS: BMI 15.7
[2016-08-19] MEDS ORDERED: MAGNESIUM HYDROX 2400MG/30ML ORAL SUSPENSION 30 ML CUP PO PRN (17:28)
[2016-08-19] MEDS ORDERED: MAGNESIUM CITRATE 300 ML BOTTLE PO PRN (17:28)
[2016-08-19] MEDS ORDERED: MENTHOL/PHENOL 1 EACH UD MM PRN (17:28)
[2016-08-19] MEDS ORDERED: LOPERAMIDE HCL 2 MG CAPSULE PO PRN (17:28)
[2016-08-19] MEDS ORDERED: guaiFENesin/D-METHORPHAN HB 10 ML UNIT-DOSE CUPS PO PRN (17:28)
[2016-08-19] MEDS ORDERED: hydrOXYzine PAMOATE 50 MG CAPSULE (FP) PO PRN (17:28)
[2016-08-19] MEDS ORDERED: IBUPROFEN 400 MG TABLET (FP) PO PRN (17:28)
[2016-08-19] MEDS ORDERED: MAG HYDROX/AL HYDROX/SIMETH 30 ML UNIT-DOSE CUP PO PRN (17:28)
[2016-08-19] MEDS ORDERED: chlordiazePOXIDE HCL 25 MG CAPSULE PO PRN (17:28)
[2016-08-19] MEDS ORDERED: NICOTINE POLACRILEX 2 MG GUM BC PRN (17:28)
[2016-08-19] MEDS ORDERED: diphenhydrAMINE HCL 50 MG CAPSULE PO PRN (17:28)
[2016-08-19] MEDS ORDERED: ACETAMINOPHEN 325 MG TABLET (FP) PO PRN (17:28)
[2016-08-19] MEDS ORDERED: P-EPHED 60MG/TRIPROLIDI 2.5MG TABLET PO PRN (17:28)
--- NOTE | 2016-08-19 17:38 | HP ---
CIWA Score - CIWA Score Nausea/Vomitin-Mild Nausea/No Vomiting Muscle Tremors: 4-Moderate,w/Arms Extend Anxiety: 3 Agitation: 3 Paroxysmal Sweats: 1-Minimal Palms Moist Orientation: 0-Oriented Tacttile Disturbances: 0-None Auditory Disturbances: 0-None Visual Disturbances: 0-None Headache: 0-None Present CIWA-Ar Total Score: 12 Admission ROS [facility] - HPI Chief Complaint: WITHDRAWAL SX PATIENT ADMITTED TO [facility] 08/14 FOR ALCOHOL INTOXICATION, SEEN BY [facility] CLERICAL RECEPTIONIST, BEGAN LIBRIUM REGIMEN 08/18/16, HAD LIBRIUM [address] [facility], CONTINUE DETOX REGIMEN Allergies/Adverse Reactions: Allergies Allergy/AdvReac Type Severity Reaction Status Date / Time No Known Allergies Allergy Verified 08/14/16 10:55 History of Present Illness: 55 YEARS OLD FEMALE WITH LONG HISTORY OF ALCOHOL NICOTINE DEPENDENCE, S/P BRAIN ANEURYTHSM, DENIES MENTAL ILLNESS IS ADMITTED TO DETOX Exam Limitations: No Limitations - Ebola screening Have you traveled outside of the country in the last 21 days: No Have you had contact with anyone from an Ebola affected area: No Have you been sick,other than usual withdrawal symptoms: No Do you have a fever: No - Review of Systems Constitutional: Loss of Appetite, Changes in sleep, Unintentional Wgt. Loss EENT: reports: Dental Problems (UPPER LOWER DENTURE), Other (EYE GLASSES) Respiratory: reports: No Symptoms reported Cardiac: reports: No Symptoms Reported GI: reports: Diarrhea, Nausea, Poor Fluid Intake, Abdominal cramping : reports: No Symptoms Reported Musculoskeletal: reports: No Symptoms Reported Integumentary: reports: No Symptoms Reported Neuro: reports: Seizure (03/2016 HEAD TRAUMA, HEMATOMA + ANEURYTHSM SURGICALLY REPAIRED), Tremors Endocrine: reports: No Symptoms Reported Hematology: reports: No Symptoms Reported Psychiatric: reports: Judgement Intact, Mood/Affect Appropiate, Orientated x3, Depressed Other Systems: Reviewed and Negative Patient History - Patient Medical History Hx Anemia: No Hx Asthma: No Hx Chronic Obstructive Pulmonary Disease (COPD): No Hx Cancer: No Hx Cardiac Disorders: Yes (CABG) Hx Congestive Heart Failure: No Hx Hypertension: No Hx Hypercholesterolemia: No Hx Pacemaker: No HX Cerebrovascular Accident: No Hx Seizures: Yes (2015 HEAD TRAUMA) Hx Dementia: No Hx Diabetes: No Hx Gastrointestinal Disorders: No Hx Liver Disease: No Hx Genitourinary Disorders: No Hx Sexually Transmitted Disorders: No Hx Renal Disease (ESRD): No Hx Thyroid Disease: No Hx Human Immunodeficiency Virus (HIV): No Hx Hepatitis C: No Hx Depression: Yes Hx Suicide Attempt: No Hx Bipolar Disorder: No Hx Schizophrenia: No - Patient Surgical History Past Surgical History: Yes Hx Neurologic Surgery: No (BLEED S/P FALL) Hx Cataract Extraction: No Hx Cardiac Surgery: Yes (01/2012 annuloplasty ring, cabg) Hx Lung Surgery: No Hx Breast Surgery: No Hx Breast Biopsy: No Hx Abdominal Surgery: No Hx Appendectomy: No Hx Cholecystectomy: No Hx Genitourinary Surgery: Yes (left ovary resection in 80s) Hx Section: No Hx Orthopedic Surgery: No Hx Hysterectomy: Yes (2011) Anesthesia Reaction: No - PPD History Previous Implant?: No Documented Results: Negative w/o proof Implanted On Prior [facility] Admission?: No PPD to be Administered?: Yes - Reproductive History Patient is a Female of Child Bearing Age (11 -55 yrs old): Yes Last Menstrual Period: 08/19/06 Patient : No - Smoking Cessation Smoking history: Current every day smoker Have you smoked in the past 12 months: Yes Aproximately how many cigarettes per day: 20 Cigars Per Day: 0 Hx Chewing Tobacco Use: No Initiated information on smoking cessation: Yes 'Breaking Loose' booklet given: 08/19/16 - Substance & Tx. History Hx Alcohol Use: Yes Hx Substance Use: No Substance Use Type: Alcohol Hx Substance Use Treatment: Yes - Substances Abused Alcohol Route: Oral Frequency: Daily Amount used: PINT VOLKA Age of first use: 21 Date of Last Use: 08/14/16 Family Disease History - Family Disease History Family Disease History: Diabetes: Father, Mother, Brother Admission Physical Exam S - Vital Signs Vital Signs: Vital Signs - 24 hr 08/19/16 14:07 Temperature 97.6 F Pulse Rate 98 H Respiratory 20 Rate Blood Pressure 121/81 Cleared for Admission [facility] - Detox or Rehab S Level of Care: Medically Managed Detox Regimen/Protocol: Librium [facility] Breath Alcohol Content Breath Alcohol Content: 0 Urine Pregancy Test - Result Urine Test Results: Negative- NO Line Present Urine Drug Screen - Results Drug Screen Negative: No Urine Drug Screen Results: MDMA-Ecstasy
--- NOTE | 2016-08-19 17:59 | HP ---
CIWA Score - CIWA Score Nausea/Vomitin-Mild Nausea/No Vomiting Muscle Tremors: 4-Moderate,w/Arms Extend Anxiety: 3 Agitation: 3 Paroxysmal Sweats: 1-Minimal Palms Moist Orientation: 0-Oriented Tacttile Disturbances: 0-None Auditory Disturbances: 0-None Visual Disturbances: 0-None Headache: 0-None Present CIWA-Ar Total Score: 12 Admission ROS BHS - HPI Allergies/Adverse Reactions: Allergies Allergy/AdvReac Type Severity Reaction Status Date / Time No Known Allergies Allergy Verified 08/14/16 10:55 - Ebola screening Have you traveled outside of the country in the last 21 days: No Have you had contact with anyone from an Ebola affected area: No Have you been sick,other than usual withdrawal symptoms: No Do you have a fever: No Patient History - Patient Medical History Hx Anemia: No Hx Asthma: No Hx Chronic Obstructive Pulmonary Disease (COPD): No Hx Cancer: No Hx Cardiac Disorders: Yes (CABG) Hx Congestive Heart Failure: No Hx Hypertension: No Hx Hypercholesterolemia: No Hx Pacemaker: No HX Cerebrovascular Accident: No Hx Seizures: Yes (2015 HEAD TRAUMA) Hx Dementia: No Hx Diabetes: No Hx Gastrointestinal Disorders: No Hx Liver Disease: No Hx Genitourinary Disorders: No Hx Sexually Transmitted Disorders: No Hx Renal Disease (ESRD): No Hx Thyroid Disease: No Hx Human Immunodeficiency Virus (HIV): No Hx Hepatitis C: No Hx Depression: Yes Hx Suicide Attempt: No Hx Bipolar Disorder: No Hx Schizophrenia: No - Patient Surgical History Past Surgical History: Yes Hx Neurologic Surgery: No (BLEED S/P FALL) Hx Cataract Extraction: No Hx Cardiac Surgery: Yes (01/2012 annuloplasty ring, cabg) Hx Lung Surgery: No Hx Breast Surgery: No Hx Breast Biopsy: No Hx Abdominal Surgery: No Hx Appendectomy: No Hx Cholecystectomy: No Hx Genitourinary Surgery: Yes (left ovary resection in 80s) Hx Section: No Hx Orthopedic Surgery: No Hx Hysterectomy: Yes (2011) Anesthesia Reaction: No - PPD History Previous Implant?: No Documented Results: Negative w/o proof Implanted On Prior [facility] Admission?: No - Reproductive History Last Menstrual Period: 08/19/06 Patient : No - Smoking Cessation Smoking history: Current every day smoker Have you smoked in the past 12 months: Yes Aproximately how many cigarettes per day: 20 Cigars Per Day: 0 Hx Chewing Tobacco Use: No Initiated information on smoking cessation: Yes 'Breaking Loose' booklet given: 08/19/16 - Substances Abused Alcohol Route: Oral Frequency: Daily Amount used: GISSELLE SWIFT Age of first use: 21 Date of Last Use: 08/14/16 Family Disease History - Family Disease History Family Disease History: Diabetes: Father, Mother, Brother Admission Physical Exam [facility] - Vital Signs Vital Signs: Vital Signs - 24 hr 08/19/16 14:07 Temperature 97.6 F Pulse Rate 98 H Respiratory 20 Rate Blood Pressure 121/81 - Physical General Appearance: Yes: Appropriately Dressed, Mild Distress, Thin, Tremorous, Irritable, Sweating, Anxious HEENTM: Yes: Hearing grossly Normal, Normal ENT Inspection, Normocephalic, Normal Voice Respiratory: Yes: Chest Non-Tender, Lungs Clear, Normal Breath Sounds, No Respiratory Distress, No Accessory Muscle Use Neck: Yes: Supple, Trachea in good position Breast: Yes: Breasts Symetrical Cardiology: Yes: Regular Rhythm, Regular Rate, S1, S2 Abdominal: Yes: Non Tender, Soft, Increased Bowel Sounds Genitourinary: Yes: Within Normal Limits Back: Yes: Normal Inspection Musculoskeletal: Yes: Gait Steady (CANE), Muscle weakness (LEGS) Extremities: Yes: Non-Tender, Tremors Neurological: Yes: Fully Oriented, Alert, Motor Strength 5/5, Normal Response, Depressed Affect Integumentary: Yes: Warm Lymphatic: Yes: Within Normal Limits - Diagnostic (1) Alcohol dependence with uncomplicated withdrawal Current Visit: Yes Status: Acute (2) Weakness of both legs Current Visit: Yes Status: Chronic (3) Use of cane as ambulatory aid Current Visit: Yes Status: Chronic (4) Nicotine dependence Current Visit: Yes Status: Acute Qualifiers: Nicotine product type: cigarettes Substance use status: in withdrawal Qualified Code(s): F17.213 - Nicotine dependence, cigarettes, with withdrawal (5) Depression (emotion) Current Visit: Yes Status: Suspected Qualifiers: Depression Type: dysthymia Qualified Code(s): F34.1 - Dysthymic disorder S Breath Alcohol Content Breath Alcohol Content: 0 Urine Pregancy Test - Result Urine Test Results: Negative- NO Line Present Urine Drug Screen - Results Drug Screen Negative: No Urine Drug Screen Results: MDMA-Ecstasy
[2016-08-19] MEDS: THIAMINE HCL 100 MG TABLET (FP) PO SCH (22:18)
[2016-08-19] MEDS: chlordiazePOXIDE HCL 25 MG CAPSULE PO SCH (22:18)
[2016-08-19 23:33] LABS: URINE APPEARANCE CLEAR; URINE BILIRUBIN NEGATIVE (NEGATIVE); URINE BLOOD NEGATIVE (NEGATIVE); URINE COLOR YELLOW; URINE GLUCOSE (UA) NEGATIVE (NEGATIVE); URINE KETONE NEGATIVE (NEGATIVE); URINE LEUK ESTERASE NEGATIVE (NEGATIVE); URINE NITRITE NEGATIVE (NEGATIVE); URINE PROTEIN NEGATIVE (NEGATIVE); URINE UROBILINOGEN NEGATIVE E.U./dl (0.2-1.0)
[2016-08-20] MEDS: chlordiazePOXIDE HCL 25 MG CAPSULE PO SCH ×3 (06:39→17:39)
[2016-08-20] MEDS: PRENATAL VITAMINS W/ FOLIC ACID TABLET (FP) PO SCH (10:35)
[2016-08-20] MEDS: NICOTINE 14 MG/24 HOURS TOPICAL PATCH TD SCH (10:35)
--- NOTE | 2016-08-20 12:42 | CONSULT ---
[facility] Psychiatric Consult - Data Date of interview: 08/20/16 Admission source: [facility] Identifying data: First admission to [facility] for this 55 y/o AA female seeking detox treatment on for alcohol dependence.Patient is single,a mother of three,homeless (prison),disabled and supported on food stamps. Substance Abuse History: - Smoking Cessation. Smoking history: Current every day smoker. Have you smoked in the past 12 months: Yes. Aproximately how many cigarettes per day: 20. Cigars Per Day: 0. Hx Chewing Tobacco Use: No. Initiated information on smoking cessation: Yes. 'Breaking Loose' booklet given : 08/19/16. - Substances Abused. Alcohol. Route: Oral. Frequency: Daily. Amount used: [place]. Age of first use: 21. Date of Last Use: 08/14/16. Confirmed by patient in this interview. Medical History: Remarkable for a history of mitral valve repair (annuloplasty), neurosurgery for brain aneurysm,seizure disorder,CABG and left ovariectomy. Psychiatric History: Patient denies previous/present contact with mental health care providers.No history of psychiatric hospitalizations. Physical/Sexual Abuse/Trauma History: Patient denies. Additional Comment: Urine Drug Screen Results: MDMA-Ecstasy.Noted. Mental Status Exam - Mental Status Exam Alert and Oriented to: Time, Place, Person Cognitive Function: Good Patient Appearance: Well Groomed (thin habitus) Mood: Withdrawn, Hopeful Affect: Constricted Patient Behavior: Fatigued, Appropriate, Cooperative Speech Pattern: Clear Voice Loudness: Normal Thought Process: Goal Oriented Thought Disorder: Not Present Hallucinations: Denies Suicidal Ideation: Denies Homicidal Ideation: Denies Insight/Judgement: Poor Sleep: Fair Appetite: Poor, Weight loss (significant weight loss) Gait/Station: Other (ambulates with a cane) Additional Comments: ambulates with a cane Psychiatric Findings - Problem List ([place] 1, 2,3) (1) Alcohol dependence with uncomplicated withdrawal Current Visit: Yes Status: Acute (2) MDMA abuse Current Visit: Yes Status: Acute (3) Nicotine dependence Current Visit: Yes Status: Acute Qualifiers: Nicotine product type: cigarettes Substance use status: in withdrawal Qualified Code(s): F17.213 - Nicotine dependence, cigarettes, with withdrawal (4) Substance induced mood disorder Current Visit: Yes Status: Acute (5) Use of cane as ambulatory aid Current Visit: Yes Status: Chronic (6) Weakness of both legs Current Visit: Yes Status: Chronic (7) Anemia Current Visit: No Status: Chronic (8) H/O mitral valve repair Current Visit: Yes Status: Chronic - Initial Treatment Plan Initial Treatment Plan: Psychoeducation.Detoxification.Observation.
--- NOTE | 2016-08-20 12:43 | PN ---
S CIWA - CIWA Score Nausea/Vomitin Muscle Tremors: 3 Anxiety: 2 Agitation: 1-Slight > Activity Paroxysmal Sweats: 2 Orientation: 0-Oriented Tacttile Disturbances: 1-Very Mild Itch/Numbness Auditory Disturbances: 0-None Visual Disturbances: 0-None Headache: 2-Mild CIWA-Ar Total Score: 14 BHS Progress Note (SOAP) Subjective: Abdominal cramps, N/V, shakes an sweats Objective: 08/20/16 12:42 NAD Vital Signs - 8 hr 08/20/16 08/20/16 08/20/16 06:00 07:54 10:00 Temperature 98.1 F 98.4 F Pulse Rate 74 77 109 H Respiratory 16 16 20 Rate Blood Pressure 154/93 136/85 115/77 Laboratory Last Values Urine Color Yellow 08/19/16 20:00 Urine Appearance Clear 08/19/16 20:00 Urine pH 6.0 (5.0-8.0) 08/19/16 20:00 Ur Specific [place] 1.017 (1.001-1.035) 08/19/16 20:00 Urine Protein Negative (NEGATIVE) 08/19/16 20:00 Urine Glucose (UA) Negative (NEGATIVE) 08/19/16 20:00 Urine Ketones Negative (NEGATIVE) 08/19/16 20:00 Urine Blood Negative (NEGATIVE) 08/19/16 20:00 Urine Nitrite Negative (NEGATIVE) 08/19/16 20:00 Urine Bilirubin Negative (NEGATIVE) 08/19/16 20:00 Urine Urobilinogen Negative E.U./dl (0.2-1.0) 08/19/16 20:00 Ur Leukocyte Esterase Negative (NEGATIVE) 08/19/16 20:00 Labs pending, UA noted Assessment: 08/20/16 12:43 withdrawal sx Plan: continue detox
--- NOTE | 2016-08-20 21:06 | EKG ---
Test Reason : Blood Pressure : / mmHG Vent. Rate : 075 BPM Atrial Rate : 075 BPM P-R Int : 144 ms QRS Dur : 072 ms QT Int : 394 ms P-R-T Axes : 057 041 062 degrees QTc Int : 439 ms NORMAL SINUS RHYTHM SEPTAL INFARCT , AGE UNDETERMINED ABNORMAL ECG WHEN COMPARED WITH ECG OF 14-AUG-2016 19:16, QT HAS SHORTENED Confirmed by ENRIKE RESTREPO MD ([id number]) on 08/20/2016 9:05:24 PM Referred By: Confirmed By:ENRIKE RESTREPO MD
[2016-08-20] MEDS: chlordiazePOXIDE 5 MG CAPSULE PO SCH (22:37)
[2016-08-20] MEDS: THIAMINE HCL 100 MG TABLET (FP) PO SCH (22:37)
[2016-08-21] MEDS: chlordiazePOXIDE 5 MG CAPSULE PO SCH ×3 (08:09→17:05)
[2016-08-21] MEDS: PRENATAL VITAMINS W/ FOLIC ACID TABLET (FP) PO SCH (10:23)
[2016-08-21] MEDS: NICOTINE 14 MG/24 HOURS TOPICAL PATCH TD SCH (10:24)
--- NOTE | 2016-08-21 12:10 | PN ---
S CIWA - CIWA Score Nausea/Vomitin Muscle Tremors: 3 Anxiety: 3 Agitation: 3 Paroxysmal Sweats: No Perspiration Orientation: 0-Oriented Tacttile Disturbances: 0-None Auditory Disturbances: 0-None Visual Disturbances: 0-None Headache: 2-Mild CIWA-Ar Total Score: 14 BHS Progress Note (SOAP) Subjective: Restlessness, Interrupted Sleep, Generalized Body Aches, Objective: 08/21/16 12:10 Vital Signs Temperature 97.3 F L 08/21/16 10:00 Pulse Rate 98 H 08/21/16 10:00 Respiratory Rate 18 08/21/16 10:00 Blood Pressure 117/79 08/21/16 10:00 O2 Sat by Pulse Oximetry (%) Laboratory Last Values Urine Color Yellow 08/19/16 20:00 Urine Appearance Clear 08/19/16 20:00 Urine pH 6.0 (5.0-8.0) 08/19/16 20:00 Ur Specific [place] 1.017 (1.001-1.035) 08/19/16 20:00 Urine Protein Negative (NEGATIVE) 08/19/16 20:00 Urine Glucose (UA) Negative (NEGATIVE) 08/19/16 20:00 Urine Ketones Negative (NEGATIVE) 08/19/16 20:00 Urine Blood Negative (NEGATIVE) 08/19/16 20:00 Urine Nitrite Negative (NEGATIVE) 08/19/16 20:00 Urine Bilirubin Negative (NEGATIVE) 08/19/16 20:00 Urine Urobilinogen Negative E.U./dl (0.2-1.0) 08/19/16 20:00 Ur Leukocyte Esterase Negative (NEGATIVE) 08/19/16 20:00 RPR Titer Nonreactive (NONREACTIVE) 08/20/16 07:40 labs noted Assessment: Withdrawal Symptoms Plan: Continue Detox
[2016-08-21] MEDS: THIAMINE HCL 100 MG TABLET (FP) PO SCH (22:46)
[2016-08-21] MEDS: chlordiazePOXIDE HCL 10 MG CAPSULE PO SCH (22:46)
[2016-08-22] MEDS: chlordiazePOXIDE HCL 10 MG CAPSULE PO SCH (06:16)
[2016-08-22 10:22] VITALS: BP 128/85; PULSE 113; TEMP 97.7
[2016-08-22] MEDS: PRENATAL VITAMINS W/ FOLIC ACID TABLET (FP) PO SCH (10:29)
--- NOTE | 2016-08-22 10:50 | DS ---
[facility] Detox Discharge Summary Admission Date: 08/19/16 Discharge Date: 08/22/16 - History Present History: Alcohol Dependence - Physical Exam Results Vital Signs: Vital Signs Temperature 97.7 F 08/22/16 10:22 Pulse Rate 113 H 08/22/16 10:22 Respiratory Rate 18 08/22/16 10:22 Blood Pressure 128/85 08/22/16 10:22 O2 Sat by Pulse Oximetry (%) - Treatment Hospital Course: Detox Protocol Followed, Detoxed Safely, Responded well, Discharged Condition Good, Rehab Referral Accepted - Medication Discharge Medications: Ambulatory Orders NK [No Known Home Medication] 08/19/16 - Diagnosis (1) Substance induced mood disorder Current Visit: Yes Status: Chronic (2) Alcohol dependence with uncomplicated withdrawal Current Visit: Yes Status: Chronic (3) H/O mitral valve repair Current Visit: Yes Status: Chronic (4) MDMA abuse Current Visit: Yes Status: Chronic (5) Nicotine dependence Current Visit: Yes Status: Chronic Qualifiers: Nicotine product type: cigarettes Substance use status: uncomplicated Qualified Code(s): F17.210 - Nicotine dependence, cigarettes, uncomplicated (6) Use of cane as ambulatory aid Current Visit: Yes Status: Chronic (7) Weakness of both legs Current Visit: Yes Status: Chronic - AMA Did Patient Leave Against Medical Advice: No
== END 2016-08-22 11:08 | disposition home or self-care (01) | DRG 775 ==
LOC: YASAS 12:35 → Y6N 18:28
PROVIDERS: ADMIT Internal Medicine; ATTEND Internal Medicine
PROC: HZ2ZZZZ Detoxification Services for Substance Abuse Treatment (ICD-10-PCS; principal; 2016-08-22)
DX: F10.230 Alcohol dependence with withdrawal, uncomplicated (principal); F15.10 Other stimulant abuse, uncomplicated; F19.24 Other psychoactive substance dependence with psychoactive substance-induced mood disorder; F34.1 Dysthymic disorder; D64.9 Anemia, unspecified; M62.81 Muscle weakness (generalized); Z86.73 Personal history of transient ischemic attack (TIA), and cerebral infarction without residual deficits; Z95.2 Presence of prosthetic heart valve; R26.2 Difficulty in walking, not elsewhere classified
CPT/HCPCS: 36415; 81003; 86593; 93005; 93010

== ENCOUNTER 2016-11-10 09:25 | Inpatient (IN) | payer OTHER ==
[2016-11-10 15:39] VITALS: BMI 15.7
--- NOTE | 2016-11-10 16:24 | HP ---
CIWA Score - CIWA Score Nausea/Vomitin Muscle Tremors: 3 Anxiety: 3 Agitation: 3 Paroxysmal Sweats: 2 Orientation: 0-Oriented Tacttile Disturbances: 2-Mild Itch/Numbness/Burn Auditory Disturbances: 2-Mild Harshness/Frighten Visual Disturbances: 2-Mild Sensitivity Headache: 2-Mild CIWA-Ar Total Score: 22 Admission ROS BHS - HPI Chief Complaint: I NEED HELP TO STOP DRINKING ALCOHOL Allergies/Adverse Reactions: Allergies Allergy/AdvReac Type Severity Reaction Status Date / Time No Known Allergies Allergy Verified 11/10/16 15:26 History of Present Illness: THIS 56 YEARS OLD MALE WITH ALCOHOL DEPENDENCE,SEEKING HELP FOR DETOX FROM ALCOHOL,REFER BY NEW [facility]US,LAST DETOX 08/[address] [facility] MULTIPLE MEDICAL PROBLEM HTN,S/P SURGERY FOR BUBDURAL HEMATOMA IN 04/10,SEIZURE IN 04/10 MITRAL VALVE REPAIR IN 02/04 AMBULATION WITH CANE NO SIGNIFICANT PERIOD OF SOBRIETY Exam Limitations: No Limitations - Ebola screening Have you traveled outside of the country in the last 21 days: No Have you had contact with anyone from an Ebola affected area: No Have you been sick,other than usual withdrawal symptoms: No - Review of Systems Constitutional: Loss of Appetite, Malaise, Night Sweats, Changes in sleep, Weakness, Unintentional Wgt. Loss EENT: reports: Nose Congestion Respiratory: reports: No Symptoms reported Cardiac: reports: Palpitations, Other (S/P SURGERY FOR MITRAL VALVE) GI: reports: Diarrhea, Nausea, Vomiting, Abdominal cramping : reports: No Symptoms Reported Musculoskeletal: reports: Back Pain, Muscle Pain Neuro: reports: Headache, Seizure (LAST IN 04/10 SEIZURE), Tremors, Other (S/P CRANIOTOMY RIGHT FOR SUBDURAL HETOMA) Endocrine: reports: No Symptoms Reported Hematology: reports: No Symptoms Reported Psychiatric: reports: Anxious, Depressed Patient History - Patient Medical History Hx Anemia: No Hx Asthma: No Hx Chronic Obstructive Pulmonary Disease (COPD): No Hx Cancer: No Hx Cardiac Disorders: Yes (S/P MITRAL VALVE REPAIR) Hx Congestive Heart Failure: No Hx Hypertension: No Hx Hypercholesterolemia: No Hx Pacemaker: No HX Cerebrovascular Accident: No Hx Seizures: Yes (alcohol related once in 03/2016) Hx Dementia: No Hx Diabetes: No Hx Gastrointestinal Disorders: No Hx Liver Disease: No Hx Genitourinary Disorders: No Hx Sexually Transmitted Disorders: No Hx Renal Disease (ESRD): No Hx Thyroid Disease: No Hx Human Immunodeficiency Virus (HIV): No (LAST 2006) Hx Hepatitis C: No Hx Depression: No Hx Suicide Attempt: No Hx Bipolar Disorder: No Hx Schizophrenia: No Other Medical History: NO SUICIDAL ,NO HOMICAL,AMBULATION WITH CANE - Patient Surgical History Past Surgical History: Yes Hx Neurologic Surgery: No (BLEED S/P FALL) Hx Cataract Extraction: No Hx Cardiac Surgery: Yes (01/2012 annuloplasty ring, cabg) Hx Lung Surgery: No Hx Breast Surgery: No Hx Breast Biopsy: No Hx Abdominal Surgery: No Hx Appendectomy: No Hx Cholecystectomy: No Hx Genitourinary Surgery: Yes (left ovary resection in s) Hx Section: No Hx Orthopedic Surgery: No Hx Hysterectomy: Yes (2011) Anesthesia Reaction: No - PPD History Previous Implant?: Yes Documented Results: Negative w/proof Implanted On Prior [facility] Admission?: Yes Date: 08/21/16 Results: 0 mm PPD to be Administered?: No - Reproductive History Patient is a Female of Child Bearing Age (11 -55 yrs old): Yes Last Menstrual Period: 08/19/06 Patient : No - Smoking Cessation Smoking history: Current every day smoker Have you smoked in the past 12 months: Yes Aproximately how many cigarettes per day: 8 Cigars Per Day: 0 Hx Chewing Tobacco Use: No Initiated information on smoking cessation: Yes 'Breaking Loose' booklet given: 11/10/16 - Substance & Tx. History Hx Alcohol Use: Yes Hx Substance Use: No Substance Use Type: Alcohol Hx Substance Use Treatment: Yes ([facility] 08/12) - Substances Abused Alcohol--vodka Route: Oral Frequency: 3-6 times per week Amount used: 4 cups Age of first use: 22 Date of Last Use: 11/10/16 Family Disease History - Family Disease History Family Disease History: Diabetes: Father, Mother, Brother Admission Physical Exam BHS - Vital Signs Vital Signs: Vital Signs - 24 hr 11/10/16 13:55 Temperature 98.2 F Pulse Rate 105 H Respiratory 20 Rate Blood Pressure 122/85 - Physical General Appearance: Yes: Moderate Distress, Tremorous, Irritable, Sweating, Anxious HEENTM: Yes: Normal ENT Inspection, FABIAN, Pharynx Normal, Other (SCAR IN RIGHT PARIETAL AREA S/P CRANIOTOMY RIGHT) Respiratory: Yes: Lungs Clear, Normal Breath Sounds, No Respiratory Distress Neck: Yes: Within Normal Limits, Supple, Trachea in good position Breast: Yes: Breast Exam Deferred Cardiology: Yes: S1, S2, Tachycardia Abdominal: Yes: Within Normal Limits, Normal Bowel Sounds, Non Tender, Flat, Soft Genitourinary: Yes: Within Normal Limits Back: Yes: Normal Inspection, Muscle Spasm Musculoskeletal: Yes: full range of Motion, Back pain, Muscle Pain Extremities: Yes: Normal Range of Motion, Tremors Neurological: Yes: traffic reporter II-XII NML intact, Fully Oriented, Alert, Motor Strength 5/5 Integumentary: Yes: Dry Lymphatic: Yes: Within Normal Limits - Diagnostic (1) Alcohol dependence with uncomplicated withdrawal Current Visit: No Status: Chronic (2) H/O mitral valve repair Current Visit: No Status: Chronic (3) MDMA abuse Current Visit: No Status: Chronic (4) Nicotine dependence Current Visit: No Status: Chronic Qualifiers: Nicotine product type: cigarettes Substance use status: uncomplicated Qualified Code(s): F17.210 - Nicotine dependence, cigarettes, uncomplicated (5) Use of cane as ambulatory aid Current Visit: No Status: Chronic (6) Weakness of both legs Current Visit: No Status: Chronic (7) History of subdural hemorrhage Current Visit: Yes Status: Acute Cleared for Admission [facility] - Detox or Rehab [facility] Level of Care: Medically Managed Detox Regimen/Protocol: Librium [facility] Breath Alcohol Content Breath Alcohol Content: 0.188 Urine Drug Screen - Results Drug Screen Negative: Yes
[2016-11-10] MEDS ORDERED: chlordiazePOXIDE HCL 25 MG CAPSULE PO ONE (16:46)
[2016-11-10] MEDS ORDERED: P-EPHED 60MG/TRIPROLIDI 2.5MG TABLET PO PRN (16:46)
[2016-11-10] MEDS ORDERED: LOPERAMIDE HCL 2 MG CAPSULE PO PRN (16:46)
[2016-11-10] MEDS ORDERED: chlordiazePOXIDE HCL 25 MG CAPSULE PO PRN (16:46)
[2016-11-10] MEDS ORDERED: guaiFENesin/D-METHORPHAN HB 10 ML UNIT-DOSE CUPS PO PRN (16:46)
[2016-11-10] MEDS ORDERED: hydrOXYzine PAMOATE 25 MG CAPSULE (FP) PO PRN (16:46)
[2016-11-10] MEDS ORDERED: MAG HYDROX/AL HYDROX/SIMETH 30 ML UNIT-DOSE CUP PO PRN (16:46)
[2016-11-10] MEDS ORDERED: IBUPROFEN 400 MG TABLET (FP) PO PRN (16:46)
[2016-11-10] MEDS ORDERED: MAGNESIUM CITRATE 300 ML BOTTLE PO PRN (16:46)
[2016-11-10] MEDS ORDERED: MENTHOL/PHENOL 1 EACH UD MM PRN (16:46)
[2016-11-10] MEDS ORDERED: ACETAMINOPHEN 325 MG TABLET (FP) PO PRN (16:46)
[2016-11-10] MEDS ORDERED: MAGNESIUM HYDROX 2400MG/30ML ORAL SUSPENSION 30 ML CUP PO PRN (16:46)
[2016-11-10] MEDS ORDERED: diphenhydrAMINE HCL 50 MG CAPSULE PO PRN (16:46)
[2016-11-10] MEDS: chlordiazePOXIDE HCL 25 MG CAPSULE PO SCH (22:54)
[2016-11-10] MEDS: THIAMINE HCL 100 MG TABLET (FP) PO SCH (22:54)
[2016-11-10 23:16] LABS: URINE APPEARANCE CLOUDY; URINE BILIRUBIN NEGATIVE (NEGATIVE); URINE COLOR YELLOW; URINE GLUCOSE (UA) NEGATIVE (NEGATIVE); URINE KETONE NEGATIVE (NEGATIVE); URINE NITRITE NEGATIVE (NEGATIVE); URINE PROTEIN NEGATIVE (NEGATIVE); URINE UROBILINOGEN NEGATIVE E.U./dl (0.2-1.0)
[2016-11-10 23:18] LABS: URINE BLOOD 1+ (NEGATIVE); URINE LEUK ESTERASE 1+ (NEGATIVE)
[2016-11-10 23:21] LABS: GRANULAR CASTS 38 /lpf; URINE BACTERIA MODERATE /hpf (NONE SEEN); URINE HYALINE CAST 13 /lpf; URINE MUCUS MODERATE; URINE RBC 5 /hpf (0-3); URINE WBC 19 /hpf (3-5); YEAST RARE
[2016-11-11] MEDS: chlordiazePOXIDE HCL 25 MG CAPSULE PO SCH ×4 (05:32→22:48)
[2016-11-11] MEDS ORDERED: amLODIPine BESYLATE 5 MG TABLET (FP) PO SCH (10:00)
--- NOTE | 2016-11-11 10:15 | PN ---
S CIWA - CIWA Score Nausea/Vomitin Muscle Tremors: 3 Anxiety: 3 Agitation: 2 Paroxysmal Sweats: 1-Minimal Palms Moist Orientation: 0-Oriented Tacttile Disturbances: 1-Very Mild Itch/Numbness Auditory Disturbances: 1-Very Mild Visual Disturbances: 1-Very Mild Sensitivity Headache: 2-Mild CIWA-Ar Total Score: 17 BHS Progress Note (SOAP) Subjective: ALERT,IRRITABLE,ANXIOUS,INTERRUPTED SLEEP,TREMOR Objective: 11/11/16 10:12 Vital Signs Temperature 98.4 F 11/11/16 06:00 Pulse Rate 87 11/11/16 06:00 Respiratory Rate 16 11/11/16 06:00 Blood Pressure 149/80 11/11/16 06:00 O2 Sat by Pulse Oximetry (%) EKG NSR LVH 11/11/16 10:13 NO CHEST PAIN,NO SOB,NO DIZZINESS 11/11/16 10:13 Laboratory Last Values Urine Color Yellow 11/10/16 23:00 Urine Appearance Cloudy 11/10/16 23:00 Urine pH 5.0 (5.0-8.0) 11/10/16 23:00 Urine Protein Negative (NEGATIVE) 11/10/16 23:00 Urine Glucose (UA) Negative (NEGATIVE) 11/10/16 23:00 Urine Ketones Negative (NEGATIVE) 11/10/16 23:00 Urine Blood 1+ (NEGATIVE) H 11/10/16 23:00 Urine Nitrite Negative (NEGATIVE) 11/10/16 23:00 Urine Bilirubin Negative (NEGATIVE) 11/10/16 23:00 Urine Urobilinogen Negative E.U./dl (0.2-1.0) 11/10/16 23:00 Ur Leukocyte Esterase 1+ (NEGATIVE) H 11/10/16 23:00 Urine RBC 5 /hpf (0-3) 11/10/16 23:00 Urine WBC 19 /hpf (3-5) 11/10/16 23:00 Ur Epithelial Cells Moderate /hpf (FEW) 11/10/16 23:00 Urine Bacteria Moderate /hpf (NONE SEEN) 11/10/16 23:00 Hyaline Casts 13 /lpf 11/10/16 23:00 Granular Casts 38 /lpf 11/10/16 23:00 Urine Mucus Moderate 11/10/16 23:00 Urine Yeast Rare 11/10/16 23:00 11/11/16 10:14 LABS PENDING Assessment: 11/11/16 10:14 WITHDRAWAL SYMPTOM Plan: CONTINUE DETOX
[2016-11-11] MEDS: PRENATAL VITAMINS W/ FOLIC ACID TABLET (FP) PO SCH (10:25)
[2016-11-11 10:27] LABS: MCHC 33.7 g/dl (32.0-36.0); MEAN CELL VOLUME 100.8 fl (80-96); MEAN PLT VOLUME 10.4 fl (7.5-11.1); PLATELET COUNT 200 K/MM3 (134-434); RDW 16.6 % (11.6-15.6); WHITE BLOOD COUNT 6.9 K/mm3 (4.0-10.0)
--- NOTE | 2016-11-11 10:37 | EKG ---
Test Reason : Blood Pressure : / mmHG Vent. Rate : 081 BPM Atrial Rate : 081 BPM P-R Int : 132 ms QRS Dur : 080 ms QT Int : 392 ms P-R-T Axes : 068 055 069 degrees QTc Int : 455 ms NORMAL SINUS RHYTHM POSSIBLE LEFT ATRIAL ENLARGEMENT LEFT VENTRICULAR HYPERTROPHY ABNORMAL ECG WHEN COMPARED WITH ECG OF 19-AUG-2016 19:39, NO SIGNIFICANT CHANGE WAS FOUND Confirmed by IRMA VILLA, LIZZETH ([id number]) on 11/11/2016 10:36:52 AM Referred By: Confirmed By:LIZZETH SOLIS MD
[2016-11-11 10:50] LABS: ALBUMIN 4.1 g/dl (3.4-5.0); ALK PHOS 84 U/L (45-117); ANION GAP 12 (8-16); BILIRUBIN,TOTAL 0.5 mg/dL (0.2-1.0); CALCIUM 9.3 mg/dL (8.5-10.1); CO2 24 mmol/L (21-32); CREATININE 0.9 mg/dL (0.55-1.02); GLUCOSE,RANDOM 88 mg/dL (74-106); SGOT/AST 36 U/L (15-37); SGPT/ALT 25 U/L (12-78); TOT PROT 8.1 g/dl (6.4-8.2)
--- NOTE | 2016-11-11 11:19 | CONSULT ---
[facility] Psychiatric Consult - Data Date of interview: 11/11/16 Admission source: [facility] Identifying data: Readmission to [facility] for this 56 y/o AA female seeking detox treatment on for alcohol dependence.Patient is single,a mother of three,homeless (residential),disabled and supported on food stamps. Substance Abuse History: - Smoking Cessation. Smoking history: Current every day smoker. Have you smoked in the past 12 months: Yes. Aproximately how many cigarettes per day: 8. Cigars Per Day: 0. Hx Chewing Tobacco Use: No. Initiated information on smoking cessation: Yes. 'Breaking Loose' booklet given : 11/10/16. - Substance & Tx. History. Hx Alcohol Use: Yes. Hx Substance Use : No. Substance Use Type: Alcohol. Hx Substance Use Treatment: Yes ([facility] 08/12 ). - Substances Abused. Alcohol--vodka. Route: Oral. Frequency: 3-6 times per week. Amount used: 4 cups. Age of first use: 22. Date of Last Use: 11/10/16. Confirmed by patient. Medical History: History of mitral valve repair (annuloplasty),neurosurgery for brain aneurysm,seizure disorder,CABG and left ovariectomy. Psychiatric History: No history of psychiatric hospitalizations. Physical/Sexual Abuse/Trauma History: Patient denies history of abuse.Enduring social stressors : poverty,severe physical disabilities and lack of support. Additional Comment: Drug Screen is negative. Mental Status Exam - Mental Status Exam Alert and Oriented to: Time, Place, Person Cognitive Function: Good Patient Appearance: Well Groomed (thin,frail appearance) Mood: Withdrawn, Anxious Affect: Mood Congruent Patient Behavior: Fatigued, Appropriate, Cooperative Speech Pattern: Clear Voice Loudness: Normal Thought Process: Goal Oriented Thought Disorder: Not Present Hallucinations: Denies Suicidal Ideation: Denies Homicidal Ideation: Denies Insight/Judgement: Fair Sleep: Fair Appetite: Poor, Weight loss Gait/Station: Other (walks with a cane due to right-sided weakness) Psychiatric Findings - Problem List ([place] 1, 2,3) (1) Alcohol dependence with uncomplicated withdrawal Current Visit: Yes Status: Acute (2) Nicotine dependence Current Visit: Yes Status: Acute Qualifiers: Nicotine product type: cigarettes Substance use status: uncomplicated Qualified Code(s): F17.210 - Nicotine dependence, cigarettes, uncomplicated (3) Substance induced mood disorder Current Visit: Yes Status: Chronic (4) History of subdural hemorrhage Current Visit: No Status: Chronic (5) Weight loss Current Visit: Yes Status: Chronic (6) H/O mitral valve repair Current Visit: No Status: Chronic (7) Use of cane as ambulatory aid Current Visit: Yes Status: Chronic (8) Weakness of both legs Current Visit: Yes Status: Chronic - Initial Treatment Plan Initial Treatment Plan: Psychoeducation.Detoxification.Observation.
[2016-11-11 17:14] LABS: URINE APPEARANCE CLEAR; URINE BILIRUBIN NEGATIVE (NEGATIVE); URINE BLOOD NEGATIVE (NEGATIVE); URINE COLOR YELLOW; URINE GLUCOSE (UA) 1+ (NEGATIVE); URINE KETONE NEGATIVE (NEGATIVE); URINE NITRITE POSITIVE (NEGATIVE); URINE PROTEIN NEGATIVE (NEGATIVE); URINE UROBILINOGEN NEGATIVE E.U./dl (0.2-1.0)
[2016-11-11 17:22] LABS: URINE LEUK ESTERASE TRACE (NEGATIVE)
[2016-11-11 18:11] LABS: URINE BACTERIA RARE /hpf (NONE SEEN); URINE MUCUS RARE; URINE RBC <1 /hpf (0-3); URINE WBC 10 /hpf (3-5)
[2016-11-11] MEDS: THIAMINE HCL 100 MG TABLET (FP) PO SCH (22:48)
[2016-11-12] MEDS: chlordiazePOXIDE HCL 25 MG CAPSULE PO SCH ×3 (07:01→17:50)
--- NOTE | 2016-11-12 09:41 | PN ---
Psychiatric Progress Note Vital Signs: Vital Signs Period Temp Pulse Resp BP Sys/Chávez Pulse Ox Last 24 Hr 97.9 F-98.2 F 77-110 16-18 134-146/82-100 Date of Session: 11/12/16 Chief Complaint:: " I feel anxious ". HPI: Seen on 11/11/16 for evaluation of mental status and determination of necessity for psychotropic medications.This follow up is requested because the patient has been offering complaints of anxiety. ROS: Slow and unsteady gait.Lower back pain.Patient is alert and fully oriented.Visible on the unit and ambulatory.Frequently observed sitting in open areas interacting with peers. Current Medications: Active Medications Generic Name Dose Route Start Last Admin Trade Name Freq PRN Reason Stop Dose Admin Acetaminophen 650 mg 11/10/16 16:46 Tylenol - PO Q4H PRN FEVER OR PAIN Al Hydroxide/Mg Hydroxide 30 ml 11/10/16 16:46 Mylanta Oral Suspension - PO Q6H PRN DYSPEPSIA Amlodipine Besylate 10 mg 11/12/16 10:00 Norvasc - PO DAILY DK Chlordiazepoxide HCl 10 mg 11/13/16 23:00 Librium - PO 11/14/16 17:01 [id number] Chlordiazepoxide HCl 25 mg 11/10/16 16:46 Librium - PO 11/13/16 16:45 Q4H PRN WITHDRAWAL(CONT SUBST) Chlordiazepoxide HCl 25 mg 11/11/16 23:00 11/12/16 07:01 Librium - PO 11/12/16 17:01 25 mg [id number] DK Administration Chlordiazepoxide HCl 15 mg 11/12/16 23:00 Librium - PO 11/13/16 17:01 [id number] DK Diphenhydramine HCl 50 mg 11/10/16 16:46 Benadryl - PO HSMR1 PRN INSOMNIA Eucalyptus/Menthol/Phenol/Sorbitol 1 each 11/10/16 16:46 Cepastat Lozenge - MM Q4H PRN SORE THROAT Guaifenesin 10 ml 11/10/16 16:46 Robitussin Dm - PO Q6H PRN COUGH Hydroxyzine Pamoate 25 mg 11/10/16 16:46 Vistaril - PO Q4H PRN AGITATION Ibuprofen 400 mg 11/10/16 16:46 Motrin - PO Q6H PRN SEVERE PAIN Loperamide HCl 4 mg 11/10/16 16:46 Imodium - PO Q6H PRN DIARRHEA Magnesium Citrate 300 ml 11/10/16 16:46 Citroma - PO Q48H PRN CONSTIPATION Magnesium Hydroxide 30 ml 11/10/16 16:46 Milk Of Magnesia - PO DAILY PRN CONSTIPATION Multivit/Folic Acid/Iron 1 tab 11/11/16 10:00 11/11/16 10:25 Vitamins (Sjr) - PO 1 tab DAILY DK Administration Pseudoephedrine/Triprolidine 1 combo 11/10/16 16:46 Actifed - PO TID PRN NASAL CONGESTION Thiamine HCl 100 mg 11/10/16 22:00 11/11/16 22:48 Vitamin B1 - PO 100 mg HS DK Administration Medication(s) Change(s): Patient is advised to utilize her prn doses of vistaril 25 mg po q 4 hours.Side effects/benefits discussed with the patient.She agrees with plan. Current Side Effect: No Lab tests ordered: No Lab tests reviewed: Yes Provider note:: Discussed with staff.Met with patient.She admits to feeling anxious in the morning.Reassurance given.Made aware of availability of hydroxyzine.Ms Carter responded favorably favorably to this intervention.Will follow. Total face to face time:: 30 Mental Status Exam - Mental Status Exam Alert and Oriented to: Time, Place, Person Cognitive Function: Grossly Intact Patient Appearance: Well Groomed (thin) Mood: Nervous, Anxious Affect: Constricted Patient Behavior: Sedated (lightly sedated), Fatigued, Appropriate, Cooperative Speech Pattern: Clear Voice Loudness: Mildly Soft/Quiet Thought Process: Goal Oriented Thought Disorder: Not Present Hallucinations: Denies Suicidal Ideation: Denies Homicidal Ideation: Denies Insight/Judgement: Fair Sleep: Fair Appetite: Poor, Weight loss Gait/Station: Other (walks with a cane) Psychiatric Treatment Plan - Problem List (1) Alcohol dependence with uncomplicated withdrawal Current Visit: Yes (2) Nicotine dependence Current Visit: Yes Qualifiers: Nicotine product type: cigarettes Substance use status: uncomplicated Qualified Code(s): F17.210 - Nicotine dependence, cigarettes, uncomplicated (3) Substance induced mood disorder Current Visit: Yes (4) History of subdural hemorrhage Current Visit: No (5) Weight loss Current Visit: Yes (6) H/O mitral valve repair Current Visit: No (7) Use of cane as ambulatory aid Current Visit: Yes (8) Weakness of both legs Current Visit: Yes
[2016-11-12 10:01] LABS: URINE APPEARANCE SLCLOUDY; URINE BILIRUBIN NEGATIVE (NEGATIVE); URINE BLOOD NEGATIVE (NEGATIVE); URINE COLOR LTYELLOW; URINE GLUCOSE (UA) NEGATIVE (NEGATIVE); URINE KETONE NEGATIVE (NEGATIVE); URINE LEUK ESTERASE NEGATIVE (NEGATIVE); URINE NITRITE POSITIVE (NEGATIVE); URINE PROTEIN NEGATIVE (NEGATIVE); URINE UROBILINOGEN NEGATIVE E.U./dl (0.2-1.0)
[2016-11-12 10:29] LABS: URINE BACTERIA MODERATE /hpf (NONE SEEN); URINE RBC 1 /hpf (0-3); URINE WBC <1 /hpf (3-5)
[2016-11-12] MEDS: amLODIPine BESYLATE 10 MG TABLET (FP) PO SCH (10:44)
[2016-11-12] MEDS: PRENATAL VITAMINS W/ FOLIC ACID TABLET (FP) PO SCH (10:44)
--- NOTE | 2016-11-12 11:02 | PN ---
S CIWA - CIWA Score Nausea/Vomitin Muscle Tremors: 3 Anxiety: 3 Agitation: 2 Paroxysmal Sweats: 1-Minimal Palms Moist Orientation: 0-Oriented Tacttile Disturbances: 1-Very Mild Itch/Numbness Auditory Disturbances: 1-Very Mild Visual Disturbances: 1-Very Mild Sensitivity Headache: 2-Mild CIWA-Ar Total Score: 17 S Progress Note (SOAP) Subjective: ALERT,INTERRUPTED SLEEP,TREMOR,DEPRESS,PAIN IN THE BODY Objective: 11/12/16 10:58 Vital Signs Temperature 98.1 F 11/12/16 10:00 Pulse Rate 107 H 11/12/16 10:00 Respiratory Rate 20 11/12/16 10:00 Blood Pressure 144/99 11/12/16 10:00 O2 Sat by Pulse Oximetry (%) Laboratory Last Values WBC 6.9 K/mm3 (4.0-10.0) D 11/11/16 06:00 RBC 3.36 M/mm3 (3.60-5.2) L D 11/11/16 06:00 Hgb 11.4 GM/dL (10.7-15.3) D 11/11/16 06:00 Hct 33.9 % (32.4-45.2) 11/11/16 06:00 MCV 100.8 fl (80-96) H 11/11/16 06:00 MCHC 33.7 g/dl (32.0-36.0) 11/11/16 06:00 RDW 16.6 % (11.6-15.6) H 11/11/16 06:00 Plt Count 200 K/MM3 (134-434) D 11/11/16 06:00 MPV 10.4 fl (7.5-11.1) 11/11/16 06:00 Sodium 142 mmol/L (136-145) 11/11/16 06:00 Potassium 4.2 mmol/L (3.5-5.1) 11/11/16 06:00 Chloride 106 mmol/L (98-107) 11/11/16 06:00 Carbon Dioxide 24 mmol/L (21-32) 11/11/16 06:00 Anion Gap 12 (8-16) 11/11/16 06:00 BUN 23 mg/dL (7-18) H D 11/11/16 06:00 Creatinine 0.9 mg/dL (0.55-1.02) D 11/11/16 06:00 Creat Clearance w eGFR > 60 (>60) 11/11/16 06:00 Random Glucose 88 mg/dL (74-106) 11/11/16 06:00 Calcium 9.3 mg/dL (8.5-10.1) 11/11/16 06:00 Total Bilirubin 0.5 mg/dL (0.2-1.0) D 11/11/16 06:00 AST 36 U/L (15-37) 11/11/16 06:00 ALT 25 U/L (12-78) 11/11/16 06:00 Alkaline Phosphatase 84 U/L (45-117) 11/11/16 06:00 Total Protein 8.1 g/dl (6.4-8.2) 11/11/16 06:00 Albumin 4.1 g/dl (3.4-5.0) D 11/11/16 06:00 Urine Color Ltyellow 11/12/16 08:00 Urine Appearance Slcloudy 11/12/16 08:00 Urine pH 6.0 (5.0-8.0) 11/12/16 08:00 Ur Specific [place] 1.015 (1.005-1.025) 11/11/16 14:55 Urine Protein Negative (NEGATIVE) 11/12/16 08:00 Urine Glucose (UA) Negative (NEGATIVE) 11/12/16 08:00 Urine Ketones Negative (NEGATIVE) 11/12/16 08:00 Urine Blood Negative (NEGATIVE) 11/12/16 08:00 Urine Nitrite Positive (NEGATIVE) 11/12/16 08:00 Urine Bilirubin Negative (NEGATIVE) 11/12/16 08:00 Urine Urobilinogen Negative E.U./dl (0.2-1.0) 11/12/16 08:00 Ur Leukocyte Esterase Negative (NEGATIVE) 11/12/16 08:00 Urine RBC 1 /hpf (0-3) 11/12/16 08:00 Urine WBC <1 /hpf (3-5) 11/12/16 08:00 Ur Epithelial Cells Rare /hpf (FEW) 11/12/16 08:00 Urine Bacteria Moderate /hpf (NONE SEEN) 11/12/16 08:00 Hyaline Casts 13 /lpf 11/10/16 23:00 Granular Casts 38 /lpf 11/10/16 23:00 Urine Mucus Rare 11/11/16 14:55 Urine Yeast Rare 11/10/16 23:00 RPR Titer Nonreactive (NONREACTIVE) 11/11/16 06:00 11/12/16 11:02 Laboratory Last Values WBC 6.9 K/mm3 (4.0-10.0) D 11/11/16 06:00 RBC 3.36 M/mm3 (3.60-5.2) L D 11/11/16 06:00 Hgb 11.4 GM/dL (10.7-15.3) D 11/11/16 06:00 Hct 33.9 % (32.4-45.2) 11/11/16 06:00 MCV 100.8 fl (80-96) H 11/11/16 06:00 MCHC 33.7 g/dl (32.0-36.0) 11/11/16 06:00 RDW 16.6 % (11.6-15.6) H 11/11/16 06:00 Plt Count 200 K/MM3 (134-434) D 11/11/16 06:00 MPV 10.4 fl (7.5-11.1) 11/11/16 06:00 Sodium 142 mmol/L (136-145) 11/11/16 06:00 Potassium 4.2 mmol/L (3.5-5.1) 11/11/16 06:00 Chloride 106 mmol/L (98-107) 11/11/16 06:00 Carbon Dioxide 24 mmol/L (21-32) 11/11/16 06:00 Anion Gap 12 (8-16) 11/11/16 06:00 BUN 23 mg/dL (7-18) H D 11/11/16 06:00 Creatinine 0.9 mg/dL (0.55-1.02) D 11/11/16 06:00 Creat Clearance w eGFR > 60 (>60) 11/11/16 06:00 Random Glucose 88 mg/dL (74-106) 11/11/16 06:00 Calcium 9.3 mg/dL (8.5-10.1) 11/11/16 06:00 Total Bilirubin 0.5 mg/dL (0.2-1.0) D 11/11/16 06:00 AST 36 U/L (15-37) 11/11/16 06:00 ALT 25 U/L (12-78) 11/11/16 06:00 Alkaline Phosphatase 84 U/L (45-117) 11/11/16 06:00 Total Protein 8.1 g/dl (6.4-8.2) 11/11/16 06:00 Albumin 4.1 g/dl (3.4-5.0) D 11/11/16 06:00 Urine Color Ltyellow 11/12/16 08:00 Urine Appearance Slcloudy 11/12/16 08:00 Urine pH 6.0 (5.0-8.0) 11/12/16 08:00 Ur Specific [place] 1.015 (1.005-1.025) 11/11/16 14:55 Urine Protein Negative (NEGATIVE) 11/12/16 08:00 Urine Glucose (UA) Negative (NEGATIVE) 11/12/16 08:00 Urine Ketones Negative (NEGATIVE) 11/12/16 08:00 Urine Blood Negative (NEGATIVE) 11/12/16 08:00 Urine Nitrite Positive (NEGATIVE) 11/12/16 08:00 Urine Bilirubin Negative (NEGATIVE) 11/12/16 08:00 Urine Urobilinogen Negative E.U./dl (0.2-1.0) 11/12/16 08:00 Ur Leukocyte Esterase Negative (NEGATIVE) 11/12/16 08:00 Urine RBC 1 /hpf (0-3) 11/12/16 08:00 Urine WBC <1 /hpf (3-5) 11/12/16 08:00 Ur Epithelial Cells Rare /hpf (FEW) 11/12/16 08:00 Urine Bacteria Moderate /hpf (NONE SEEN) 11/12/16 08:00 Hyaline Casts 13 /lpf 11/10/16 23:00 Granular Casts 38 /lpf 11/10/16 23:00 Urine Mucus Rare 11/11/16 14:55 Urine Yeast Rare 11/10/16 23:00 RPR Titer Nonreactive (NONREACTIVE) 11/11/16 06:00 Assessment: 11/12/16 11:02 WITHDRAWAL SYMPTOM Plan: CONTINUE DETOX
[2016-11-12] MEDS: NICOTINE 21 MG/24 HOURS TOPICAL PATCH TD SCH (12:00)
[2016-11-12] MEDS: THIAMINE HCL 100 MG TABLET (FP) PO SCH (23:15)
[2016-11-12] MEDS: chlordiazePOXIDE 5 MG CAPSULE PO SCH (23:15)
[2016-11-13] MEDS: chlordiazePOXIDE 5 MG CAPSULE PO SCH ×3 (06:09→18:15)
--- NOTE | 2016-11-13 10:17 | PN ---
S Progress Note (SOAP) Subjective: ALERT,IRRITABLE,INTERRUPTED SLEEP,ANXIOUS Objective: 11/13/16 10:16 Vital Signs Temperature 98.1 F 11/13/16 09:28 Pulse Rate 107 H 11/13/16 09:28 Respiratory Rate 18 11/13/16 09:28 Blood Pressure 143/96 11/13/16 09:28 O2 Sat by Pulse Oximetry (%) Assessment: 11/13/16 10:17 WITHDRAWAL SYMPTOM Plan: CONTINUE DETOX,DISCHARGE IN AM
[2016-11-13] MEDS: PRENATAL VITAMINS W/ FOLIC ACID TABLET (FP) PO SCH (10:26)
[2016-11-13] MEDS: amLODIPine BESYLATE 10 MG TABLET (FP) PO SCH (10:26)
[2016-11-13] MEDS: NICOTINE 21 MG/24 HOURS TOPICAL PATCH TD SCH (10:27)
[2016-11-13] MEDS: THIAMINE HCL 100 MG TABLET (FP) PO SCH (22:21)
[2016-11-13] MEDS: chlordiazePOXIDE HCL 10 MG CAPSULE PO SCH (22:21)
[2016-11-14] MEDS: chlordiazePOXIDE HCL 10 MG CAPSULE PO SCH (06:26)
--- NOTE | 2016-11-14 08:29 | PN ---
S Progress Note (SOAP) Subjective: ALERT,NO COMPLAINT Objective: 11/14/16 08:27 Vital Signs Temperature 98.1 F 11/14/16 06:00 Pulse Rate 112 H 11/14/16 07:30 Respiratory Rate 18 11/14/16 07:30 Blood Pressure 139/97 11/14/16 07:30 O2 Sat by Pulse Oximetry (%) Assessment: 11/14/16 08:27 DETOX COMPLETED.NO WITHDRAWAL SYMPTOM Plan: DISCHARGE TODAY,FOLLOW UP WITH AFTER CARE PROGRAM ARRANGEMENT
--- NOTE | 2016-11-14 08:36 | DS ---
[facility] Detox Discharge Summary Admission Date: 11/10/16 Discharge Date: 11/14/16 - History Present History: Alcohol Dependence Additional Comments: FOLLOW UP WITH AFTER CARE PROGRAM ARRANGEMENT AND PMD FOR MEDICAL PROBLEM Pertinent Past History: S/P MITRAL VALVE REPAIR NICOTINE DEPENDENCE SEIZURE WEIGHT LOSS S/P SURGERY FOR SUBDURAL HEMATOMA RIGHT USE CANE AMBULATORY AID WEIGHT LOSS - Physical Exam Results Vital Signs: Vital Signs Temperature 98.1 F 11/14/16 06:00 Pulse Rate 112 H 11/14/16 07:30 Respiratory Rate 18 11/14/16 07:30 Blood Pressure 139/97 11/14/16 07:30 O2 Sat by Pulse Oximetry (%) Pertinent Admission Physical Exam Findings: WITHDRAWAL SYMPTOM - Treatment Hospital Course: Detox Protocol Followed, Detoxed Safely, Responded well, Discharged Condition Good, Rehab Referral Accepted Patient has Accepted a Rehab Referral to: [facility] - Medication Discharge Medications: Ambulatory Orders Amlodipine Besylate [Norvasc -] 5 mg PO DAILY 11/10/16 - Diagnosis (1) Alcohol dependence with uncomplicated withdrawal Current Visit: Yes Status: Acute (2) H/O mitral valve repair Current Visit: No Status: Chronic (3) MDMA abuse Current Visit: No Status: Chronic (4) Nicotine dependence Current Visit: Yes Status: Acute Qualifiers: Nicotine product type: cigarettes Substance use status: uncomplicated Qualified Code(s): F17.210 - Nicotine dependence, cigarettes, uncomplicated (5) Use of cane as ambulatory aid Current Visit: Yes Status: Chronic (6) Weakness of both legs Current Visit: Yes Status: Chronic (7) History of subdural hemorrhage Current Visit: No Status: Chronic - AMA Did Patient Leave Against Medical Advice: No
[2016-11-14 09:46] VITALS: BP 135/78; PULSE 123; TEMP 97.6
== END 2016-11-14 09:20 | disposition home or self-care (01) | DRG 775 ==
LOC: YASAS 09:25 → Y6N 16:38
PROVIDERS: ADMIT Internal Medicine; ATTEND Internal Medicine
PROC: HZ2ZZZZ Detoxification Services for Substance Abuse Treatment (ICD-10-PCS; principal; 2016-11-10)
DX: F10.230 Alcohol dependence with withdrawal, uncomplicated (principal); F17.210 Nicotine dependence, cigarettes, uncomplicated; F16.10 Hallucinogen abuse, uncomplicated; F19.24 Other psychoactive substance dependence with psychoactive substance-induced mood disorder; R26.2 Difficulty in walking, not elsewhere classified; Z99.89 Dependence on other enabling machines and devices; I10 Essential (primary) hypertension; M62.81 Muscle weakness (generalized); R00.0 Tachycardia, unspecified; Z87.898 Personal history of other specified conditions; Z87.820 Personal history of traumatic brain injury; Z86.69 Personal history of other diseases of the nervous system and sense organs
CPT/HCPCS: 36415; 80053; 81003; 81015; 85027; 86593; 93005; 93010

== ENCOUNTER 2016-11-14 14:16 | Inpatient (IN) | payer OTHER ==
[2016-11-14 18:04] VITALS: BMI 17.1
--- NOTE | 2016-11-14 19:44 | HP ---
Admission [facility] Chief Complaint: WITHDRAWAL SX Allergies/Adverse Reactions: Allergies Allergy/AdvReac Type Severity Reaction Status Date / Time No Known Allergies Allergy Verified 11/14/16 18:58 History of Present Illness: 56 YEARS OLD FEMALE WITH LONG HISTORY OF ALCOHOL NICOTINE DEPENDENCE HAS HYPERTENSION AMBULATING WITH CANE DUE TO HEAD TRAUMA 2016 RIGHT SIDE WEAKNESS UNDER GOES PHYSICAL THERAPY AND SPEECH THEAPY AND DEPRESSION AND ANXIETY IS ADMITTED TO REHAB Exam Limitations: No Limitations - Ebola screening Have you traveled outside of the country in the last 21 days: No Have you had contact with anyone from an Ebola affected area: No Have you been sick,other than usual withdrawal symptoms: No Do you have a fever: No - Review of Systems Constitutional: No Symptoms Reported EENT: reports: Other (EYE GLASSES) Respiratory: reports: No Symptoms reported Cardiac: reports: No Symptoms Reported GI: reports: No Symptoms Reported : reports: No Symptoms Reported Musculoskeletal: reports: No Symptoms Reported Integumentary: reports: No Symptoms Reported Neuro: reports: Seizure (2016 X 1 TREATED WITH KAPPRA, LAST DOSE 2015) Endocrine: reports: No Symptoms Reported Hematology: reports: No Symptoms Reported Psychiatric: reports: Judgement Intact, Orientated x3, Depressed Other Systems: Reviewed and Negative Patient History - Patient Medical History Hx Anemia: No Hx Asthma: No Hx Chronic Obstructive Pulmonary Disease (COPD): No Hx Cancer: No Hx Cardiac Disorders: No Hx Congestive Heart Failure: No Hx Hypertension: No Hx Hypercholesterolemia: No Hx Pacemaker: No HX Cerebrovascular Accident: No Hx Seizures: Yes Hx Dementia: No Hx Diabetes: No Hx Gastrointestinal Disorders: No Hx Liver Disease: No Hx Genitourinary Disorders: No Hx Sexually Transmitted Disorders: No Hx Renal Disease (ESRD): No Hx Thyroid Disease: No Hx Human Immunodeficiency Virus (HIV): No Hx Hepatitis C: No Hx Depression: Yes Hx Suicide Attempt: No Hx Bipolar Disorder: No Hx Schizophrenia: No - Patient Surgical History Past Surgical History: Yes Hx Neurologic Surgery: No (BLEED S/P FALL) Hx Cataract Extraction: No Hx Cardiac Surgery: Yes (01/2012 annuloplasty ring, cabg) Hx Lung Surgery: No Hx Breast Surgery: No Hx Breast Biopsy: No Hx Abdominal Surgery: No Hx Appendectomy: No Hx Cholecystectomy: No Hx Genitourinary Surgery: Yes (left ovary resection in 80s) Hx Section: No Hx Orthopedic Surgery: No Hx Hysterectomy: Yes (2011) Anesthesia Reaction: No - PPD History Previous Implant?: Yes Documented Results: Negative w/o proof Implanted On Prior R Admission?: Yes Date: 08/21/16 Results: 0 mm PPD to be Administered?: No - Reproductive History Patient is a Female of Child Bearing Age (11 -55 yrs old): Yes Last Menstrual Period: 08/19/06 Patient : No - Smoking Cessation Smoking history: Current every day smoker Have you smoked in the past 12 months: Yes Aproximately how many cigarettes per day: 20 Cigars Per Day: 0 Hx Chewing Tobacco Use: No Initiated information on smoking cessation: Yes 'Breaking Loose' booklet given: 11/14/16 - Substance & Tx. History Hx Alcohol Use: Yes Hx Substance Use: No Substance Use Type: Alcohol Hx Substance Use Treatment: Yes - Substances Abused Alcohol Route: Oral Frequency: Daily Amount used: 32OZ VOLKA Age of first use: 20 Date of Last Use: 11/08/16 Family Disease History - Family Disease History Family Disease History: Diabetes: Father, Mother, Brother Admission Physical Exam [facility] - Vital Signs Vital Signs: Vital Signs - 24 hr 11/14/16 18:01 Temperature 97.0 F L Pulse Rate 90 Respiratory 18 Rate Blood Pressure 154/99 Cleared for Admission [facility] - Detox or Rehab [facility] Level of Care: Observation Bed Detox Regimen/Protocol: Not Applicable Claeared for Rehab Admission: Yes [facility] Breath Alcohol Content Breath Alcohol Content: 0 Urine Pregancy Test - Result Urine Test Results: Negative- NO Line Present Urine Drug Screen - Results Drug Screen Negative: No Urine Drug Screen Results: MDMA-Ecstasy, BZO-Benzodiazepines, TCA-Tricyclic Antidepress
[2016-11-14] MEDS ORDERED: LOPERAMIDE HCL 2 MG CAPSULE PO PRN (19:53)
[2016-11-14] MEDS ORDERED: hydrOXYzine PAMOATE 50 MG CAPSULE (FP) PO PRN (19:53)
[2016-11-14] MEDS ORDERED: MENTHOL/PHENOL 1 EACH UD MM PRN (19:53)
[2016-11-14] MEDS ORDERED: P-EPHED 60MG/TRIPROLIDI 2.5MG TABLET PO PRN (19:53)
[2016-11-14] MEDS ORDERED: NICOTINE POLACRILEX 4 MG GUM BUC PRN (19:53)
[2016-11-14] MEDS ORDERED: ACETAMINOPHEN 325 MG TABLET (FP) PO PRN (19:53)
[2016-11-14] MEDS ORDERED: guaiFENesin/D-METHORPHAN HB 10 ML UNIT-DOSE CUPS PO PRN (19:53)
[2016-11-14] MEDS ORDERED: MAGNESIUM CITRATE 300 ML BOTTLE PO PRN (19:53)
[2016-11-14] MEDS ORDERED: MAGNESIUM HYDROX 2400MG/30ML ORAL SUSPENSION 30 ML CUP PO PRN (19:53)
[2016-11-14] MEDS ORDERED: MAG HYDROX/AL HYDROX/SIMETH 30 ML UNIT-DOSE CUP PO PRN (19:53)
[2016-11-14] MEDS ORDERED: IBUPROFEN 400 MG TABLET (FP) PO PRN (19:53)
--- NOTE | 2016-11-14 19:53 | HP ---
[facility] Rehab Assess/Revision - Admission History Admitted to Rehab from: [facility] Date of Admission to Rehab: 11/14/16 - Vital signs Vital Signs: Vital Signs Period Temp Pulse Resp BP Sys/Chávez Pulse Ox Last 24 Hr 97.0 F 90 18 154/99 - Findings Detox History & Physical reviewed: Yes Concur with findings: Yes Comments/Additional Findings: TRANSFERRED FROM DETOX TO REHAB ADMISSION PER PROTOCOL
[2016-11-14] MEDS: amLODIPine BESYLATE 10 MG TABLET (FP) PO SCH (23:19)
[2016-11-14] MEDS: THIAMINE HCL 100 MG TABLET (FP) PO SCH (23:19)
[2016-11-15] MEDS ORDERED: amLODIPine BESYLATE 10 MG TABLET (FP) PO SCH (10:00)
[2016-11-15] MEDS: NICOTINE 21 MG/24 HOURS TOPICAL PATCH TD SCH (10:42)
[2016-11-15] MEDS: PRENATAL VITAMINS W/ FOLIC ACID TABLET (FP) PO SCH (10:43)
[2016-11-15] MEDS: amLODIPine BESYLATE 10 MG TABLET (FP) PO SCH (10:43)
[2016-11-15] MEDS: THIAMINE HCL 100 MG TABLET (FP) PO SCH (21:36)
--- NOTE | 2016-11-16 09:48 | HP ---
Psychiatrist Admission - Data Date of interview: 11/16/16 Admission source: [address] [place] [address] Identifying data: This is the first admission to [address] [place] [address] rehabilitation for this 56 years old female,undomiciled,supported by [employer]. Medical History: H/O Subdural hematoma,H/O Mitral valve prolapse. Psychiatric History: No previous psychiatric treatment,but reports being depressed for years medicated herself by drinking,Reports worsening her depression after subdural hemorrage in 2016. Physical/Sexual Abuse/Trauma History: denies Vital Signs: Vital Signs - 24 hr 11/15/16 11/16/16 11/16/16 10:47 03:30 07:10 Temperature 97.8 F Pulse Rate 101 H 83 Respiratory 16 18 Rate Blood Pressure 122/81 127/91 Allergies/Adverse Reactions: Allergies Allergy/AdvReac Type Severity Reaction Status Date / Time No Known Allergies Allergy Verified 11/14/16 18:58 Date of last physical exam: 11/14/16 Concur with the findings of this exam: Yes - Substance Abuse/Tx History Hx Alcohol Use: Yes (reports drinking since 22 yo,vodka 3-6 times a week) Hx Substance Use: No Substance Use Type: Alcohol Hx Substance Use Treatment: Yes (this is her first inpatient rehabilitation treatment) - Admission Criteria Previous failed treatment: Yes Poor recovery environment: Yes Comorbidities: Yes Lacks judgement: Yes Mental Status Exam - Mental Status Exam Alert and Oriented to: Time, Place, Person Cognitive Function: Grossly Intact Patient Appearance: Unkempt Mood: Depressed Affect: Mood Congruent, Labile Patient Behavior: Crying Speech Pattern: Clear Voice Loudness: Normal Thought Process: Goal Oriented Thought Disorder: Not Present Hallucinations: Denies Suicidal Ideation: Denies Homicidal Ideation: Denies Insight/Judgement: Fair Sleep: Difficulty falling asleep Appetite: Fair Muscle strength/Tone: Normal Gait/Station: Normal Psychiatric Findings - Problem List ([place] 1, 2,3) (1) Alcohol dependence with uncomplicated withdrawal Current Visit: Yes Status: Chronic (2) Nicotine dependence Current Visit: Yes Status: Chronic Qualifiers: Nicotine product type: cigarettes Substance use status: uncomplicated Qualified Code(s): F17.210 - Nicotine dependence, cigarettes, uncomplicated (3) H/O mitral valve repair Current Visit: Yes Status: Inactive (4) History of subdural hemorrhage Current Visit: Yes Status: Inactive (5) MDMA abuse Current Visit: Yes Status: Chronic (6) Substance induced mood disorder Current Visit: Yes Status: Chronic (7) Weakness of both legs Current Visit: Yes Status: Chronic - Initial Treatment Plan Initial Treatment Plan: Start Zoloft 50 mg po daily,Namenda 5 mg po bid. Will monitor progress.
[2016-11-16] MEDS: NICOTINE 21 MG/24 HOURS TOPICAL PATCH TD SCH (10:25)
[2016-11-16] MEDS: amLODIPine BESYLATE 10 MG TABLET (FP) PO SCH (10:26)
[2016-11-16] MEDS: PRENATAL VITAMINS W/ FOLIC ACID TABLET (FP) PO SCH (10:26)
[2016-11-16] MEDS: SERTRALINE HCL 50 MG TABLET (FP) PO SCH (13:00)
[2016-11-16] MEDS: MEMANTINE HCL 5 MG TABLET (UD) PO SCH ×2 (13:00→21:33)
[2016-11-16] MEDS ORDERED: PT OWN MED DRAWER 7, Y5N ONE (19:38)
[2016-11-16] MEDS: THIAMINE HCL 100 MG TABLET (FP) PO SCH (21:33)
[2016-11-16] MEDS: diphenhydrAMINE HCL 50 MG CAPSULE PO PRN (21:34)
[2016-11-17] MEDS ORDERED: PT OWN MED DRAWER 7, Y5N ONE ×2 (08:47→19:46)
[2016-11-17] MEDS: amLODIPine BESYLATE 10 MG TABLET (FP) PO SCH (10:41)
[2016-11-17] MEDS: PRENATAL VITAMINS W/ FOLIC ACID TABLET (FP) PO SCH (10:41)
[2016-11-17] MEDS: MEMANTINE HCL 5 MG TABLET (UD) PO SCH ×2 (10:41→21:36)
[2016-11-17] MEDS: SERTRALINE HCL 50 MG TABLET (FP) PO SCH (10:41)
[2016-11-17] MEDS: NICOTINE 21 MG/24 HOURS TOPICAL PATCH TD SCH (10:42)
--- NOTE | 2016-11-17 15:11 | PN ---
[facility] Progress Note Note: swelling of ankles & feet since norvasc increased to 10mg skin slightly tense elevate legs at night bacitracin oin't bid
[2016-11-17] MEDS: BACITRACIN 0.9 GM PACKET TP SCH (21:36)
[2016-11-17] MEDS: diphenhydrAMINE HCL 50 MG CAPSULE PO PRN (21:36)
[2016-11-17] MEDS: THIAMINE HCL 100 MG TABLET (FP) PO SCH (21:36)
[2016-11-18] MEDS ORDERED: PT OWN MED DRAWER 7, Y5N ONE ×2 (09:08→19:52)
[2016-11-18] MEDS: SERTRALINE HCL 50 MG TABLET (FP) PO SCH (10:38)
[2016-11-18] MEDS: amLODIPine BESYLATE 10 MG TABLET (FP) PO SCH (10:38)
[2016-11-18] MEDS: BACITRACIN 0.9 GM PACKET TP SCH ×2 (10:38→22:25)
[2016-11-18] MEDS: PRENATAL VITAMINS W/ FOLIC ACID TABLET (FP) PO SCH (10:39)
[2016-11-18] MEDS: MEMANTINE HCL 5 MG TABLET (UD) PO SCH ×2 (10:39→21:39)
[2016-11-18] MEDS: NICOTINE 21 MG/24 HOURS TOPICAL PATCH TD SCH (10:39)
[2016-11-18] MEDS: THIAMINE HCL 100 MG TABLET (FP) PO SCH (21:39)
[2016-11-18] MEDS: diphenhydrAMINE HCL 50 MG CAPSULE PO PRN (21:40)
[2016-11-19] MEDS ORDERED: PT OWN MED DRAWER 7, Y5N ONE ×2 (08:42→21:28)
[2016-11-19] MEDS: BACITRACIN 0.9 GM PACKET TP SCH ×2 (10:03→21:27)
[2016-11-19] MEDS: NICOTINE 21 MG/24 HOURS TOPICAL PATCH TD SCH (10:03)
[2016-11-19] MEDS: PRENATAL VITAMINS W/ FOLIC ACID TABLET (FP) PO SCH (10:03)
[2016-11-19] MEDS: amLODIPine BESYLATE 10 MG TABLET (FP) PO SCH (10:03)
[2016-11-19] MEDS: SERTRALINE HCL 50 MG TABLET (FP) PO SCH (10:04)
[2016-11-19] MEDS: MEMANTINE HCL 5 MG TABLET (UD) PO SCH ×2 (10:04→21:28)
[2016-11-19] MEDS: THIAMINE HCL 100 MG TABLET (FP) PO SCH (21:27)
[2016-11-19] MEDS: diphenhydrAMINE HCL 50 MG CAPSULE PO PRN (21:27)
[2016-11-20] MEDS ORDERED: PT OWN MED DRAWER 7, Y5N ONE ×2 (08:40→20:04)
[2016-11-20] MEDS: SERTRALINE HCL 50 MG TABLET (FP) PO SCH (10:09)
[2016-11-20] MEDS: amLODIPine BESYLATE 10 MG TABLET (FP) PO SCH (10:09)
[2016-11-20] MEDS: PRENATAL VITAMINS W/ FOLIC ACID TABLET (FP) PO SCH (10:09)
[2016-11-20] MEDS: NICOTINE 21 MG/24 HOURS TOPICAL PATCH TD SCH (10:09)
[2016-11-20] MEDS: BACITRACIN 0.9 GM PACKET TP SCH ×2 (10:10→21:38)
[2016-11-20] MEDS: MEMANTINE HCL 5 MG TABLET (UD) PO SCH ×2 (10:10→21:38)
[2016-11-20] MEDS: THIAMINE HCL 100 MG TABLET (FP) PO SCH (21:38)
[2016-11-20] MEDS: diphenhydrAMINE HCL 50 MG CAPSULE PO PRN (21:38)
[2016-11-21] MEDS: PRENATAL VITAMINS W/ FOLIC ACID TABLET (FP) PO SCH (10:49)
[2016-11-21] MEDS: amLODIPine BESYLATE 10 MG TABLET (FP) PO SCH (10:49)
[2016-11-21] MEDS: BACITRACIN 0.9 GM PACKET TP SCH ×2 (10:49→21:33)
[2016-11-21] MEDS: NICOTINE 21 MG/24 HOURS TOPICAL PATCH TD SCH (10:49)
[2016-11-21] MEDS: SERTRALINE HCL 50 MG TABLET (FP) PO SCH (10:49)
[2016-11-21] MEDS: MEMANTINE HCL 5 MG TABLET (UD) PO SCH ×2 (10:49→21:33)
[2016-11-21] MEDS: THIAMINE HCL 100 MG TABLET (FP) PO SCH (21:33)
[2016-11-21] MEDS: diphenhydrAMINE HCL 50 MG CAPSULE PO PRN (21:33)
[2016-11-22] MEDS: NICOTINE 21 MG/24 HOURS TOPICAL PATCH TD SCH (10:38)
[2016-11-22] MEDS: MEMANTINE HCL 5 MG TABLET (UD) PO SCH ×2 (10:39→21:33)
[2016-11-22] MEDS: SERTRALINE HCL 50 MG TABLET (FP) PO SCH (10:39)
[2016-11-22] MEDS: BACITRACIN 0.9 GM PACKET TP SCH ×2 (10:39→21:33)
[2016-11-22] MEDS: amLODIPine BESYLATE 10 MG TABLET (FP) PO SCH (10:39)
[2016-11-22] MEDS: PRENATAL VITAMINS W/ FOLIC ACID TABLET (FP) PO SCH (10:40)
[2016-11-22] MEDS: THIAMINE HCL 100 MG TABLET (FP) PO SCH (21:33)
[2016-11-22] MEDS: diphenhydrAMINE HCL 50 MG CAPSULE PO PRN (21:34)
[2016-11-23] MEDS ORDERED: PT OWN MED DRAWER 7, Y5N ONE (08:20)
[2016-11-23] MEDS: MEMANTINE HCL 5 MG TABLET (UD) PO SCH ×2 (10:22→21:32)
[2016-11-23] MEDS: PRENATAL VITAMINS W/ FOLIC ACID TABLET (FP) PO SCH (10:23)
[2016-11-23] MEDS: NICOTINE 21 MG/24 HOURS TOPICAL PATCH TD SCH (10:23)
[2016-11-23] MEDS: SERTRALINE HCL 50 MG TABLET (FP) PO SCH (10:23)
[2016-11-23] MEDS: amLODIPine BESYLATE 10 MG TABLET (FP) PO SCH (10:23)
[2016-11-23] MEDS: BACITRACIN 0.9 GM PACKET TP SCH ×2 (10:24→21:33)
[2016-11-23] MEDS: THIAMINE HCL 100 MG TABLET (FP) PO SCH (21:32)
[2016-11-23] MEDS: diphenhydrAMINE HCL 50 MG CAPSULE PO PRN (21:33)
[2016-11-24] MEDS: BACITRACIN 0.9 GM PACKET TP SCH ×2 (10:20→21:31)
[2016-11-24] MEDS: MEMANTINE HCL 5 MG TABLET (UD) PO SCH ×2 (10:20→21:31)
[2016-11-24] MEDS: NICOTINE 21 MG/24 HOURS TOPICAL PATCH TD SCH (10:21)
[2016-11-24] MEDS: amLODIPine BESYLATE 10 MG TABLET (FP) PO SCH (10:21)
[2016-11-24] MEDS: PRENATAL VITAMINS W/ FOLIC ACID TABLET (FP) PO SCH (10:22)
[2016-11-24] MEDS: SERTRALINE HCL 50 MG TABLET (FP) PO SCH (10:22)
[2016-11-24] MEDS: THIAMINE HCL 100 MG TABLET (FP) PO SCH (21:31)
[2016-11-24] MEDS: diphenhydrAMINE HCL 50 MG CAPSULE PO PRN (21:31)
[2016-11-25] MEDS: MEMANTINE HCL 5 MG TABLET (UD) PO SCH ×2 (10:24→21:34)
[2016-11-25] MEDS: BACITRACIN 0.9 GM PACKET TP SCH ×2 (10:24→21:34)
[2016-11-25] MEDS: amLODIPine BESYLATE 10 MG TABLET (FP) PO SCH (10:24)
[2016-11-25] MEDS: PRENATAL VITAMINS W/ FOLIC ACID TABLET (FP) PO SCH (10:24)
[2016-11-25] MEDS: SERTRALINE HCL 50 MG TABLET (FP) PO SCH (10:24)
[2016-11-25] MEDS: NICOTINE 21 MG/24 HOURS TOPICAL PATCH TD SCH (10:24)
[2016-11-25] MEDS: THIAMINE HCL 100 MG TABLET (FP) PO SCH (21:34)
[2016-11-25] MEDS: diphenhydrAMINE HCL 50 MG CAPSULE PO PRN (21:35)
[2016-11-26] MEDS: NICOTINE 21 MG/24 HOURS TOPICAL PATCH TD SCH (10:21)
[2016-11-26] MEDS: BACITRACIN 0.9 GM PACKET TP SCH ×2 (10:21→21:51)
[2016-11-26] MEDS: PRENATAL VITAMINS W/ FOLIC ACID TABLET (FP) PO SCH (10:22)
[2016-11-26] MEDS: MEMANTINE HCL 5 MG TABLET (UD) PO SCH ×2 (10:22→21:50)
[2016-11-26] MEDS: amLODIPine BESYLATE 10 MG TABLET (FP) PO SCH (10:22)
[2016-11-26] MEDS: SERTRALINE HCL 50 MG TABLET (FP) PO SCH (10:22)
[2016-11-26] MEDS ORDERED: PT OWN MED DRAWER 7, Y5N ONE (20:19)
[2016-11-26] MEDS: THIAMINE HCL 100 MG TABLET (FP) PO SCH (21:50)
[2016-11-26] MEDS: diphenhydrAMINE HCL 50 MG CAPSULE PO PRN (21:50)
[2016-11-27] MEDS: SERTRALINE HCL 50 MG TABLET (FP) PO SCH (10:01)
[2016-11-27] MEDS: MEMANTINE HCL 5 MG TABLET (UD) PO SCH ×2 (10:01→21:29)
[2016-11-27] MEDS: amLODIPine BESYLATE 10 MG TABLET (FP) PO SCH (10:01)
[2016-11-27] MEDS: NICOTINE 21 MG/24 HOURS TOPICAL PATCH TD SCH (10:01)
[2016-11-27] MEDS: PRENATAL VITAMINS W/ FOLIC ACID TABLET (FP) PO SCH (10:01)
[2016-11-27] MEDS: BACITRACIN 0.9 GM PACKET TP SCH ×2 (10:02→21:30)
[2016-11-27] MEDS: diphenhydrAMINE HCL 50 MG CAPSULE PO PRN (21:30)
[2016-11-27] MEDS: THIAMINE HCL 100 MG TABLET (FP) PO SCH (21:30)
[2016-11-28 09:49] LABS: URINE APPEARANCE CLEAR; URINE BILIRUBIN NEGATIVE (NEGATIVE); URINE BLOOD NEGATIVE (NEGATIVE); URINE COLOR LTYELLOW; URINE GLUCOSE (UA) NEGATIVE (NEGATIVE); URINE KETONE NEGATIVE (NEGATIVE); URINE LEUK ESTERASE NEGATIVE (NEGATIVE); URINE NITRITE NEGATIVE (NEGATIVE); URINE PROTEIN NEGATIVE (NEGATIVE); URINE UROBILINOGEN NEGATIVE E.U./dl (0.2-1.0)
[2016-11-28] MEDS: BACITRACIN 0.9 GM PACKET TP SCH ×2 (10:55→21:35)
[2016-11-28] MEDS: SERTRALINE HCL 50 MG TABLET (FP) PO SCH (10:55)
[2016-11-28] MEDS: MEMANTINE HCL 5 MG TABLET (UD) PO SCH ×2 (10:55→21:34)
[2016-11-28] MEDS: PRENATAL VITAMINS W/ FOLIC ACID TABLET (FP) PO SCH (10:55)
[2016-11-28] MEDS: NICOTINE 21 MG/24 HOURS TOPICAL PATCH TD SCH (10:56)
[2016-11-28] MEDS: amLODIPine BESYLATE 10 MG TABLET (FP) PO SCH (10:56)
[2016-11-28] MEDS: THIAMINE HCL 100 MG TABLET (FP) PO SCH (21:34)
[2016-11-28] MEDS: diphenhydrAMINE HCL 50 MG CAPSULE PO PRN (21:34)
[2016-11-29] MEDS: amLODIPine BESYLATE 10 MG TABLET (FP) PO SCH (10:32)
[2016-11-29] MEDS: SERTRALINE HCL 50 MG TABLET (FP) PO SCH (10:32)
[2016-11-29] MEDS: BACITRACIN 0.9 GM PACKET TP SCH ×2 (10:32→21:28)
[2016-11-29] MEDS: NICOTINE 21 MG/24 HOURS TOPICAL PATCH TD SCH (10:32)
[2016-11-29] MEDS: MEMANTINE HCL 5 MG TABLET (UD) PO SCH ×2 (10:32→21:28)
[2016-11-29] MEDS: PRENATAL VITAMINS W/ FOLIC ACID TABLET (FP) PO SCH (10:32)
[2016-11-29] MEDS: THIAMINE HCL 100 MG TABLET (FP) PO SCH (21:27)
[2016-11-29] MEDS: diphenhydrAMINE HCL 50 MG CAPSULE PO PRN (21:28)
[2016-11-30] MEDS: BACITRACIN 0.9 GM PACKET TP SCH ×2 (09:54→21:32)
[2016-11-30] MEDS: MEMANTINE HCL 5 MG TABLET (UD) PO SCH ×2 (09:54→21:32)
[2016-11-30] MEDS: PRENATAL VITAMINS W/ FOLIC ACID TABLET (FP) PO SCH (09:55)
[2016-11-30] MEDS: SERTRALINE HCL 50 MG TABLET (FP) PO SCH (09:55)
[2016-11-30] MEDS: amLODIPine BESYLATE 10 MG TABLET (FP) PO SCH (09:55)
[2016-11-30] MEDS: NICOTINE 21 MG/24 HOURS TOPICAL PATCH TD SCH (09:55)
[2016-11-30] MEDS: diphenhydrAMINE HCL 50 MG CAPSULE PO PRN (21:32)
[2016-11-30] MEDS: THIAMINE HCL 100 MG TABLET (FP) PO SCH (21:32)
[2016-12-01] MEDS: NICOTINE 21 MG/24 HOURS TOPICAL PATCH TD SCH (10:08)
[2016-12-01] MEDS: amLODIPine BESYLATE 10 MG TABLET (FP) PO SCH (10:09)
[2016-12-01] MEDS: BACITRACIN 0.9 GM PACKET TP SCH ×2 (10:09→21:24)
[2016-12-01] MEDS: PRENATAL VITAMINS W/ FOLIC ACID TABLET (FP) PO SCH (10:09)
[2016-12-01] MEDS: SERTRALINE HCL 50 MG TABLET (FP) PO SCH (10:09)
[2016-12-01] MEDS: MEMANTINE HCL 5 MG TABLET (UD) PO SCH ×2 (10:09→21:24)
[2016-12-01] MEDS: diphenhydrAMINE HCL 50 MG CAPSULE PO PRN (21:23)
[2016-12-01] MEDS: THIAMINE HCL 100 MG TABLET (FP) PO SCH (21:23)
[2016-12-02] MEDS ORDERED: PT OWN MED DRAWER 7, Y5N ONE ×2 (08:31→19:47)
[2016-12-02] MEDS: MEMANTINE HCL 5 MG TABLET (UD) PO SCH ×2 (10:09→21:38)
[2016-12-02] MEDS: NICOTINE 21 MG/24 HOURS TOPICAL PATCH TD SCH (10:09)
[2016-12-02] MEDS: BACITRACIN 0.9 GM PACKET TP SCH ×2 (10:09→21:38)
[2016-12-02] MEDS: amLODIPine BESYLATE 10 MG TABLET (FP) PO SCH (10:10)
[2016-12-02] MEDS: SERTRALINE HCL 50 MG TABLET (FP) PO SCH (10:10)
[2016-12-02] MEDS: PRENATAL VITAMINS W/ FOLIC ACID TABLET (FP) PO SCH (10:10)
[2016-12-02] MEDS: THIAMINE HCL 100 MG TABLET (FP) PO SCH (21:38)
[2016-12-02] MEDS: diphenhydrAMINE HCL 50 MG CAPSULE PO PRN (21:38)
[2016-12-03] MEDS ORDERED: PT OWN MED DRAWER 7, Y5N ONE (08:50)
[2016-12-03] MEDS: BACITRACIN 0.9 GM PACKET TP SCH ×2 (10:23→21:31)
[2016-12-03] MEDS: SERTRALINE HCL 50 MG TABLET (FP) PO SCH (10:23)
[2016-12-03] MEDS: amLODIPine BESYLATE 10 MG TABLET (FP) PO SCH (10:23)
[2016-12-03] MEDS: PRENATAL VITAMINS W/ FOLIC ACID TABLET (FP) PO SCH (10:24)
[2016-12-03] MEDS: NICOTINE 21 MG/24 HOURS TOPICAL PATCH TD SCH (10:24)
[2016-12-03] MEDS: MEMANTINE HCL 5 MG TABLET (UD) PO SCH ×2 (10:24→21:31)
[2016-12-03] MEDS: diphenhydrAMINE HCL 50 MG CAPSULE PO PRN (21:30)
[2016-12-03] MEDS: THIAMINE HCL 100 MG TABLET (FP) PO SCH (21:30)
[2016-12-04 07:19] VITALS: TEMP 98.1
[2016-12-04] MEDS ORDERED: PT OWN MED DRAWER 7, Y5N ONE (08:44)
[2016-12-04] MEDS: NICOTINE 21 MG/24 HOURS TOPICAL PATCH TD SCH (10:03)
[2016-12-04] MEDS: PRENATAL VITAMINS W/ FOLIC ACID TABLET (FP) PO SCH (10:03)
[2016-12-04] MEDS: MEMANTINE HCL 5 MG TABLET (UD) PO SCH ×2 (10:03→21:27)
[2016-12-04] MEDS: SERTRALINE HCL 50 MG TABLET (FP) PO SCH (10:04)
[2016-12-04] MEDS: amLODIPine BESYLATE 10 MG TABLET (FP) PO SCH (10:04)
[2016-12-04] MEDS: BACITRACIN 0.9 GM PACKET TP SCH ×2 (10:04→21:26)
[2016-12-04] MEDS: THIAMINE HCL 100 MG TABLET (FP) PO SCH (21:26)
[2016-12-04] MEDS: diphenhydrAMINE HCL 50 MG CAPSULE PO PRN (21:26)
[2016-12-05] MEDS ORDERED: PT OWN MED DRAWER 7, Y5N ONE (08:37)
[2016-12-05 09:23] VITALS: BP 117/73; PULSE 111
--- NOTE | 2016-12-05 09:47 | PN ---
Psychiatric Progress Note Vital Signs: Vital Signs Period Temp Pulse Resp BP Sys/Chávez Pulse Ox Last 24 Hr 98.1 F 62-111 16-17 117-127/73-83 Date of Session: 12/05/16 Chief Complaint:: Discharge visit HPI: Patient addressed Alcohol dependence comorbid with Alcohol induced mood disorder. ROS: Significant for Subdural hemorrhage. Current Medications: Active Medications Generic Name Dose Route Start Last Admin Trade Name Freq PRN Reason Stop Dose Admin Acetaminophen 650 mg 11/14/16 19:53 Tylenol - PO Q4H PRN FEVER OR PAIN Al Hydroxide/Mg Hydroxide 30 ml 11/14/16 19:53 Mylanta Oral Suspension - PO Q6H PRN DYSPEPSIA Amlodipine Besylate 10 mg 11/14/16 22:45 12/04/16 10:04 Norvasc - PO 10 mg DAILY DK Administration Bacitracin 0.9 gm 11/17/16 22:00 12/04/16 21:26 Bacitracin - TP Not Given BID DK Diphenhydramine HCl 50 mg 11/14/16 19:53 12/04/16 21:26 Benadryl - PO 50 mg HSMR1 PRN Administration FOR ITCHING Eucalyptus/Menthol/Phenol/Sorbitol 1 each 11/14/16 19:53 Cepastat Lozenge - MM Q4H PRN SORE THROAT Guaifenesin 10 ml 11/14/16 19:53 Robitussin Dm - PO Q6H PRN COUGH Hydroxyzine Pamoate 50 mg 11/14/16 19:53 Vistaril - PO Q4H PRN AGITATION Ibuprofen 400 mg 11/14/16 19:53 12/01/16 16:28 Motrin - PO 400 mg Q6H PRN Administration PAIN Loperamide HCl 4 mg 11/14/16 19:53 Imodium - PO Q6H PRN DIARRHEA Magnesium Hydroxide 30 ml 11/14/16 19:53 Milk Of Magnesia - PO DAILY PRN CONSTIPATION Memantine 5 mg 11/16/16 12:00 12/04/16 21:27 Namenda - PO 5 mg BID DK Administration Nicotine 21 mg 11/15/16 10:00 12/04/16 10:03 Nicoderm Patch - TD 21 mg DAILY DK Administration Nicotine Polacrilex 4 mg 11/14/16 19:53 Nicorette Gum - BUC Q2H PRN NICOTINE REPLACEMENT RX Multivit/Folic Acid/Iron 1 tab 11/15/16 10:00 12/04/16 10:03 Vitamins (Sjr) - PO 1 tab DAILY DK Administration Pseudoephedrine/Triprolidine 1 combo 11/14/16 19:53 Actifed - PO TID PRN NASAL CONGESTION Sertraline HCl 50 mg 11/16/16 12:00 12/04/16 10:04 Zoloft - PO 50 mg DAILY DK Administration Thiamine HCl 100 mg 11/14/16 22:00 12/04/16 21:26 Vitamin B1 - PO 100 mg HS DK Administration Current Side Effect: No Lab tests ordered: No Lab tests reviewed: Yes Provider note:: Patient completed this program today.She has met her treatment goal and will continue to address her issues on outpatient basis at [facility] program.Patient will continue Zoloft 50 mg po daily to cope with depressed mood,anxiety.Scripts for 30 days provided. Therapy provided focusing on relapse prevention:coping skills,support system utilization to maintain recovery has been discussed with the patient. She is stable for discharge today. Total face to face time:: 30 Mental Status Exam - Mental Status Exam Alert and Oriented to: Time, Place, Person Cognitive Function: Grossly Intact Patient Appearance: Well Groomed Mood: Euthymic Affect: Mood Congruent Patient Behavior: Cooperative Speech Pattern: Clear Voice Loudness: Normal Thought Process: Goal Oriented Thought Disorder: Not Present Hallucinations: Denies Suicidal Ideation: Denies Homicidal Ideation: Denies Insight/Judgement: Fair Sleep: Fair Appetite: Fair Muscle strength/Tone: Normal Gait/Station: Normal Psychiatric Treatment Plan - Problem List (2) Nicotine dependence Qualifiers: Nicotine product type: cigarettes Substance use status: uncomplicated Qualified Code(s): F17.210 - Nicotine dependence, cigarettes, uncomplicated
[2016-12-05] MEDS: PRENATAL VITAMINS W/ FOLIC ACID TABLET (FP) PO SCH (10:04)
[2016-12-05] MEDS: NICOTINE 21 MG/24 HOURS TOPICAL PATCH TD SCH (10:04)
[2016-12-05] MEDS: amLODIPine BESYLATE 10 MG TABLET (FP) PO SCH (10:04)
[2016-12-05] MEDS: BACITRACIN 0.9 GM PACKET TP SCH (10:05)
[2016-12-05] MEDS: MEMANTINE HCL 5 MG TABLET (UD) PO SCH (10:05)
[2016-12-05] MEDS: SERTRALINE HCL 50 MG TABLET (FP) PO SCH (10:05)
== END 2016-12-05 10:48 | disposition home or self-care (01) | DRG 772 ==
LOC: YASAS 14:16 → Y3E 19:12
PROVIDERS: ADMIT Psychiatry & Neurology Psychiatry; ATTEND Psychiatry & Neurology Psychiatry
PROC: HZ42ZZZ Group Counseling for Substance Abuse Treatment, Cognitive-Behavioral (ICD-10-PCS; principal; 2016-11-14)
DX: F10.20 Alcohol dependence, uncomplicated (principal); F10.24 Alcohol dependence with alcohol-induced mood disorder; F17.210 Nicotine dependence, cigarettes, uncomplicated; F19.24 Other psychoactive substance dependence with psychoactive substance-induced mood disorder; Z98.890 Other specified postprocedural states; Z86.79 Personal history of other diseases of the circulatory system; M25.472 Effusion, left ankle; M79.89 Other specified soft tissue disorders
CPT/HCPCS: 81003

== ENCOUNTER 2016-12-27 19:31 | Emergency (ER) | payer OTHER ==
[2016-12-27 19:51] VITALS: TEMP 98; BMI 17.7
[2016-12-27] MEDS ORDERED: LORAZEPAM CARPU-JECT 2 MG/ML DISP.SYRIN IVPUSH ONE ×2 (20:10→20:31)
[2016-12-27] MEDS ORDERED: HALOPERIDOL LACTATE 5 MG/ML IM ONE (20:11)
--- NOTE | 2016-12-27 20:12 | PDOC ---
History of Present Illness - History of Present Illness Initial Comments: 12/27/16 20:54 Patient is a 56 year old female with significant medical hx of ETOH dependence, subdural hematoma (2016), seizures, head injury, HTN, HLD, COPD, pancreatitis and anemia who is presenting to the ED via EMS with sudden AMS which occurred prior to arrival. The patient was being walked up to the bathroom by family member, due to intoxication, when she suddenly became confused. She didnt recognize her family members and began thinking she was a teenager again. The patient was requesting to go to her high school and thought that her mother was still alive. Denies history of headache, recent head trauma, weakness, or LOC. Patient was doing well at detox until she was found to have breast lumps by her doctor. She began binge drinking again this past weekend. Surgical Hx: craniotomy, mitral valve <Taryn Monge - Last Filed: 12/27/16 21:23> <Jasmine Rapp - Last Filed: 12/28/16 00:17> - General Chief Complaint: Psychiatric Stated Complaint: PSYCHIATRIC Time Seen by Provider: 12/27/16 20:08 Past History <Taryn Monge - Last Filed: 12/27/16 21:23> - Past Medical History Anemia: No Asthma: No Cancer: No Cardiac Disorders: Yes (MITRAL VALVE REPAIR) CVA: No COPD: No CHF: No Dementia: No Diabetes: No GI Disorders: No Disorders: No HTN: Yes Hypercholesterolemia: No Kidney Stones: No Liver Disease: No Psychiatric Problems: Yes (panic attacks) Suicide Attempt (Hx): No Seizures: Yes (RELATED TO BRAIN SURGERY) Thyroid Disease: No - Surgical History Abdominal Surgery: No Appendectomy: No Cardiac Surgery: Yes (01/2012 annuloplasty ring, cabg) Cholecystectomy: No Lung Surgery: No Neurologic Surgery: No (BLEED S/P FALL) Orthopedic Surgery: No - Reproductive History PID: No - Immunization History Immunization Up to Date: Yes - Psycho/Social/Smoking Cessation Hx Anxiety: No Suicidal Ideation: No Smoking Status: Yes Smoking History: Current every day smoker Have you smoked in the past 12 months: Yes Number of Cigarettes Smoked Daily: 20 Cigars Per Day: 0 Information on smoking cessation initiated: No 'Breaking Loose' booklet given: 11/10/16 Hx Alcohol Use: No Drug/Substance Use Hx: No Substance Use Type: Alcohol Hx Substance Use Treatment: Yes (this is her first inpatient rehabilitation treatment) <Jasmine Rapp - Last Filed: 12/28/16 00:17> - Past Medical History Allergies/Adverse Reactions: Allergies Allergy/AdvReac Type Severity Reaction Status Date / Time No Known Allergies Allergy Verified 12/27/16 19:40 Home Medications: Ambulatory Orders Amlodipine Besylate [Norvasc -] 10 mg PO DAILY #30 tablet 12/02/16 Sertraline HCl [Zoloft -] 50 mg PO DAILY #30 tablet 12/05/16 Review of Systems - Review of Systems Comments:: 12/27/16 20:54 CONSTITUTIONAL: Absent: fever, chills, diaphoresis, generalized weakness, malaise, loss of appetite HEENT: Absent: rhinorrhea, nasal congestion, throat pain, throat swelling, difficulty swallowing, mouth swelling, ear pain, eye pain, visual changes CARDIOVASCULAR: Absent: chest pain, syncope, palpitations, irregular heart rate, lightheadedness , peripheral edema RESPIRATORY: Absent: cough, shortness of breath, dyspnea with exertion, orthopnea, wheezing, stridor, hemoptysis GASTROINTESTINAL: Absent: abdominal pain, abdominal distension, nausea, vomiting, diarrhea, constipation, melena, hematochezia GENITOURINARY: Absent: dysuria, frequency, urgency, hesitancy, hematuria, flank pain, genital pain MUSCULOSKELETAL: Absent: myalgia, arthralgia, joint swelling SKIN: Absent: rash, itching, pallor HEMATOLOGIC/IMMUNOLOGIC: Absent: easy bleeding, easy bruising, lymphadenopathy, frequent infections ENDOCRINE: Absent: unexplained weight gain, unexplained weight loss, heat intolerance, cold intolerance NEUROLOGIC: Present: altered mental status Absent: headache, focal weakness or paresthesia, dizziness, unsteady gait, seizure, bladder or bowel incontinence. PSYCHIATRIC: Absent: anxiety, depression, suicidal or homicidal ideation <Taryn Monge - Last Filed: 12/27/16 21:23> *Physical Exam - Vital Signs Last Vital Signs Temp Pulse Resp BP Pulse Ox 98.0 F 100 H 16 127/83 98 12/27/16 19:41 12/27/16 19:41 12/27/16 19:41 12/27/16 19:41 12/27/16 19:41 - Physical Exam Comments: 12/27/16 20:55 GENERAL: Thin. Alcohol on breath. Awake and alert. Distressed. HEENT: Normocephalic, atraumatic. PERRLA, EOMI. No conjunctival pallor. Sclera are non- icteric. Moist mucous membranes. Oropharynx is clear. NECK: Supple. Full ROM. No JVD. Carotid pulses 2+ and symmetric, without bruits. No thyromegaly. No lymphadenopathy. CARDIOVASCULAR: Regular rate and rhythm. No murmurs, rubs, or gallops. Distal pulses are 2+ and symmetric. PULMONARY: No evidence of respiratory distress. Lungs clear to auscultation bilaterally. No wheezing, rales or rhonchi. ABDOMINAL: Soft. Non-tender. Non-distended. No rebound or guarding. No organomegaly. Normoactive bowel sounds. MUSCULOSKELETAL: Normal range of motion at all joints. No bony deformities or tenderness. No CVA tenderness. EXTREMITIES: No cyanosis. No clubbing. No edema. No calf tenderness. SKIN: Warm and dry. Normal capillary refill. No rashes. No jaundice. NEUROLOGICAL: Alert, awake, confused. Moving all extremities. Cranial nerves 2-12 intact. Normal speech. <Taryn Monge - Last Filed: 12/27/16 21:23> - Vital Signs Last Vital Signs Temp Pulse Resp BP Pulse Ox 98.0 F 100 H 16 127/83 98 12/27/16 19:41 12/27/16 19:41 12/27/16 19:41 12/27/16 19:41 12/27/16 19:41 <Jasmine Rapp - Last Filed: 12/28/16 00:17> Heart Score/ECG Review #1 12/27/16 20:57 Normal sinus rhythm 70 BPM Possible Left atrial enlargement Left ventricle hypertrophy Abnormal ECG <Taryn Monge - Last Filed: 12/27/16 21:23> ED Treatment Course - LABORATORY CBC & Chemistry Diagram: 12/27/16 20:39 12/27/16 20:39 - ADDITIONAL ORDERS Additional order review: 12/27/16 20:39 RBC 3.45 L MCV 93.8 MCHC 33.5 RDW 14.8 D MPV 8.4 D Neutrophils % Y Lymphocytes % Y - RADIOLOGY Radiograph Interpretation: 12/27/16 21:23 Game Room Attendant: (johnmd) Report Date: 12/27/2016 20:49:00 Report Status: Preliminary Begin of Report Content Referring Physician: Jasmine Rapp Patient Name: Nina Carter THIS IS A PRELIMINARY REPORT FROM [facility] DATE OF SERVICE: 2016-12-27 20:49:11.0 IMAGES: 131 EXAM: CT HEAD WITHOUT CONTRAST REASON FOR EXAM: Altered mental status, COMPARISON: 08/14/2016 FINDINGS: Generalized mild atrophy and minimal low attenuation chronic white matter changes are stable Stable right side craniotomy changes. No intracranial hemorrhage midline shift, large vessel infarciton Ventricles, sulci and basal cisterns are within normal for age. Visualized paranasal sinuses are clear. Orbital structures are intact. IMPRESSION: No acute intracranial findings. THIS DOCUMENT HAS BEEN ELECTRONICALLY SIGNED Diane Langley D.O. 12/27/2016 21:21 ERIC Hammer Please call Imaging Construction Inspector [phone] ([phone]) with questions. End of Report Content - Medications Given in the ED: ED Medications Discontinued Medications Generic Name Dose Route Start Last Admin Trade Name Freq PRN Reason Stop Dose Admin Diphenhydramine HCl 25 mg 12/27/16 20:11 12/27/16 20:48 Benadryl Injection - IVPUSH 12/27/16 20:12 Not Given ONCE ONE Haloperidol 5 mg 12/27/16 20:11 12/27/16 20:48 Haldol Injection (Fast Acting) - IM 12/27/16 20:12 Not Given ONCE ONE Lorazepam 1 mg 12/27/16 20:10 12/27/16 20:47 Ativan Injection - IVPUSH 12/27/16 20:11 Not Given ONCE ONE Lorazepam 1 mg 12/27/16 20:31 12/27/16 20:48 Ativan Injection - IVPUSH 12/27/16 20:32 Not Given ONCE ONE <Taryn Monge - Last Filed: 12/27/16 21:23> - LABORATORY CBC & Chemistry Diagram: 12/27/16 20:39 12/27/16 20:39 <Jasmine Rapp - Last Filed: 12/28/16 00:17> Medical Decision Making - Medical Decision Making 12/27/16 23:13 56-year-old female with a history of alcoholism has gone through rehabilitation but had a relapse this weekend. Today, she had been drinking alcohol and her was helping her to the bathroom when she didn't seem to recognize family members. She appears to be combative and yelled at the family members, asking them why the monitor. She did not have a facial droop, she did not have extremity weakness, she was able to ambulate. Although she did have alcohol on board. She didn't have any solids or guarding. Speech She has a past medical history of having a subdural hematoma following a traumatic fall in April 2016. At that time she required a craniotomy CAT scan tonight did not show any acute intracranial pathology. There was no evidence of intracranial bleed, no edema, no masses, no midline shift. It did show generalized mild atrophy and some chronic white matter changes. There is stable right-sided craniotomy changes. Patient does not have any vomiting or diarrhea or chest pain or shortness of breath or cough EKG is normal sinus rhythm at 70 bpm, with LVH CBC was unremarkable. Chemistry shows negative cardiac enzymes, normal renal function, unremarkable liver function tests and normal electrolytes x-rays negative toxicology with exception of alcohol alcohol level 117. Patient received IV fluids - 12/27/16 23:19 Patient is alert and oriented 3. She admits to drinking this weekend because she was anxious. She found out recently that she had a breast mass that needed further evaluation and she has an appointment tomorrow for mammography IMP alcoholism 12/27/16 23:38 Awaiting for the results of her urinalysis and spoke to the lab. Apparently the machinery is down and the urinalysis will not be available at this time. The patient wants to go home because she has an appointment in 12 hours to return to the hospital for ultrasound and further testing Further discussion with the family revealed that the patient recently is undergoing care by psychiatrist and was just placed on Zoloft. She has another follow-up appointment with psychiatry later this week 12/28/16 00:17 <Jasmine Rapp - Last Filed: 12/28/16 00:17> *DC/Admit/Observation/Transfer - Attestations Scribe Attestion: 12/27/16 20:56 Documentation prepared by Taryn Monge, acting as medical staffing coordinator for Jasmine Rapp MD. <Taryn Monge - Last Filed: 12/27/16 21:23> <Jasmine Rapp - Last Filed: 12/28/16 00:17> Diagnosis at time of Disposition: Alcohol abuse - Discharge Dispostion Disposition: HOME Condition at time of disposition: Stable - Referrals Referrals: Kenneth Alvarez MD [Primary Care Provider] - - Patient Instructions Printed Discharge Instructions: DI for Alcohol Abuse Additional Instructions: please keep our appointment for your mammography tomorrow followup with Dr Ruiz Avoid alcohol NIH Stroke Scale - Last Known Well Date/Time & Onset Date Last Known Well: 12/27/16 Time Last Known Well: 07:00 - Initial Evaluation Level of consciousness: Alert Ask patient to open & close eyes; make fist and let go: Obeys both correctly Best gaze (horizontal eye movement): Normal Visual field testing: No visual field loss Facial paresis (Show teeth/raise eyebrows/close eyes tight): Normal symmetrical movement Motor Function: Left Arm: Normal Motor Function: Right Arm: Normal (extends arm 90 (or 45) degrees for 10 seconds without drift Motor Function: Left Leg: Normal (extends leg 30 degrees for 5 seconds without drift) Motor Function: Right Leg: Normal (extends leg 30 degrees for 5 seconds without drift) Limb Ataxia: No ataxia Sensory(Use pinprick test arms,legs,trunk,face/side to side): Normal Best language (Describe picture, name items, read sentences): No Aphasia Dysarthria (read several words): Normal articulation Extinction and Inattention: No abnormality <Jasmine Rapp - Last Filed: 12/28/16 00:17>
[2016-12-27] MEDS ORDERED: HALOPERIDOL LACTATE 5 MG/ML ONE (20:27)
[2016-12-27] MEDS ORDERED: LORAZEPAM CARPU-JECT 2 MG/ML DISP.SYRIN ONE (20:27)
[2016-12-27 20:44] LABS: MCH 31.5 pg (25.7-33.7); MCHC 33.5 g/dl (32.0-36.0); MEAN CELL VOLUME 93.8 fl (80-96); MEAN PLT VOLUME 8.4 fl (7.5-11.1); PLATELET COUNT 327 K/MM3 (134-434); RDW 14.8 % (11.6-15.6); WHITE BLOOD COUNT 6.3 K/mm3 (4.0-10.0)
[2016-12-27 20:56] LABS: INR 1.19 (0.82-1.09); PROTHROMBIN TIME (PATIENT) 13.1 SEC (9.98-11.88)
[2016-12-27 21:07] LABS: ALBUMIN 3.8 g/dl (3.4-5.0); ANION GAP 13 (8-16); CALCIUM 9.2 mg/dL (8.5-10.1); CO2 19 mmol/L (21-32); CREATININE 0.8 mg/dL (0.55-1.02); GLUCOSE,RANDOM 76 mg/dL (74-106)
[2016-12-27 21:13] LABS: ALK PHOS 106 U/L (45-117); BILIRUBIN,TOTAL 0.5 mg/dL (0.2-1.0); SGPT/ALT 19 U/L (12-78); TOT PROT 7.9 g/dl (6.4-8.2); TROPONIN I < 0.02 ng/ml (0.00-0.05)
[2016-12-27 21:15] LABS: SGOT/AST 32 U/L (15-37)
[2016-12-27] MEDS ORDERED: SODIUM CHLORIDE 1,000 ML IV STA (21:21)
[2016-12-27 21:36] LABS: PLATELET ESTIMATE ADEQUATE (NORMAL)
[2016-12-27 22:29] LABS: URINE MARIJUANA THC NEGATIVE ng/ml (CUTOFF=50)
[2016-12-27 23:40] LABS: URINE APPEARANCE CLEAR; URINE BILIRUBIN NEGATIVE (NEGATIVE); URINE BLOOD 2+ (NEGATIVE); URINE COLOR YELLOW; URINE GLUCOSE (UA) NEGATIVE (NEGATIVE); URINE KETONE NEGATIVE (NEGATIVE); URINE LEUK ESTERASE TRACE (NEGATIVE); URINE NITRITE POSITIVE (NEGATIVE); URINE PROTEIN NEGATIVE (NEGATIVE); URINE UROBILINOGEN NEGATIVE E.U./dl (0.2-1.0)
[2016-12-27 23:45] LABS: URINE BACTERIA RARE /hpf (NONE SEEN); URINE HYALINE CAST 3 /lpf; URINE MUCUS RARE; URINE RBC 14 /hpf (0-3); URINE WBC 5 /hpf (3-5)
[2016-12-28 04:38] VITALS: BP 121/76; PULSE 87
--- NOTE | 2016-12-28 10:44 | EKG ---
Test Reason : Blood Pressure : / mmHG Vent. Rate : 070 BPM Atrial Rate : 070 BPM P-R Int : 146 ms QRS Dur : 086 ms QT Int : 436 ms P-R-T Axes : 061 048 067 degrees QTc Int : 470 ms NORMAL SINUS RHYTHM POSSIBLE LEFT ATRIAL ENLARGEMENT LEFT VENTRICULAR HYPERTROPHY ABNORMAL ECG WHEN COMPARED WITH ECG OF 10-NOV-2016 16:58, NO SIGNIFICANT CHANGE WAS FOUND Confirmed by IRMA VILLA, LIZZETH ([id number]) on 12/28/2016 10:43:56 AM Referred By: Confirmed By:LIZZETH SOLIS MD
== END 2016-12-27 23:53 | disposition home or self-care (01) ==
LOC: JER 19:31
DX: F10.220 Alcohol dependence with intoxication, uncomplicated (principal); I10 Essential (primary) hypertension; E78.00 Pure hypercholesterolemia, unspecified; J44.9 Chronic obstructive pulmonary disease, unspecified; G40.909 Epilepsy, unspecified, not intractable, without status epilepticus; D64.9 Anemia, unspecified; Y90.5 Blood alcohol level of 100-119 mg/100 ml; F17.210 Nicotine dependence, cigarettes, uncomplicated
CPT/HCPCS: 36415; 70450-TC; 71010-TC; 80053; 80307; 81003; 81015; 82550; 84484; 85025; 85610; 86850; 86900; 86901; 93005; 93010; 99284-25

== ENCOUNTER 2017-01-31 08:53 | Day surgery (SDC) | payer OTHER ==
[2017-01-31 09:19] VITALS: BMI 17.4
[2017-01-31] MEDS ORDERED: PROPOFOL 20 ML ONE ×3 (10:14)
[2017-01-31] MEDS ORDERED: LIDOCAINE HCL/PF 2% SDV 5ML VIAL ONE (10:14)
[2017-01-31 12:23] VITALS: BP 122/44; PULSE 67; TEMP 97.8
--- NOTE | 2017-02-01 14:46 | PATH ---
Surgical Pathology Report Patient Name: KEESHA GTZ [facility]. Rec. #: [id number] /Age/Gender: 1960 (Age: 56) / F Account: [id number] Location: [facility]-ENDOSCOPY Taken: 01/31/2017 Received: 01/31/2017 Reported: 02/01/2017 Physicians: Mert Galvez M.D. Specimen(s) Received A: BX ASCENDING COLON POLYP B: BX SIGMOID COLON POLYP Clinical History History of colonic polyp, anemia Colon polyps, severe diverticulosis sigmoid colon Final Diagnosis A. COLON, ASCENDING, BIOPSY: TUBULAR ADENOMA. B. COLON, SIGMOID, BIOPSY: TUBULAR ADENOMA. Electronically Signed Cesar Smiht M.D. Gross Description A. Received in formalin, labeled "biopsy ascending colon" is a olvera, irregular portion of soft tissue measuring 0.4 cm. in greatest dimension. The specimen is submitted in toto in one cassette. B. Received in formalin, labeled "biopsy sigmoid colon polyp" is a olvera, irregular portion of soft tissue measuring 0.2 cm. in greatest dimension. The specimen is submitted in toto in one cassette. 01/31/2017 [place]01/31/2017
== END 2017-01-31 12:23 | disposition home or self-care (01) ==
LOC: JASU-ENDO 08:53
PROVIDERS: ATTEND Internal Medicine Gastroenterology
PROC: 0DBN8ZX Excision of Sigmoid Colon, Via Natural or Artificial Opening Endoscopic, Diagnostic (ICD-10-PCS; 2017-01-31)
PROC: 0DBK8ZX Excision of Ascending Colon, Via Natural or Artificial Opening Endoscopic, Diagnostic (ICD-10-PCS; principal; 2017-01-31 10:00)
DX: D64.9 Anemia, unspecified (principal); F10.10 Alcohol abuse, uncomplicated; F03.90 Unspecified dementia, unspecified severity, without behavioral disturbance, psychotic disturbance, mood disturbance, and anxiety; K57.30 Diverticulosis of large intestine without perforation or abscess without bleeding; D12.2 Benign neoplasm of ascending colon; D12.5 Benign neoplasm of sigmoid colon
CPT/HCPCS: 88305-TC

== ENCOUNTER 2017-02-07 08:59 | Day surgery (SDC) | payer OTHER ==
[2017-02-07] MEDS ORDERED: PROPOFOL 20 ML ONE (11:09)
[2017-02-07] MEDS ORDERED: LIDOCAINE HCL/PF 2% SDV 5ML VIAL ONE (11:09)
[2017-02-07 11:31] VITALS: TEMP 98.6
[2017-02-07 12:37] VITALS: BP 146/83; PULSE 61
--- NOTE | 2017-02-08 14:29 | PATH ---
Surgical Pathology Report Patient Name: KEESHA GTZ [facility]. Rec. #: [id number] /Age/Gender: 1960 (Age: 56) / F Account: [id number] Location: [facility]ENDOS[facility] Taken: 02/07/2017 Received: 02/07/2017 Reported: 02/08/2017 Physicians: Mert Galvez M.D. Specimen(s) Received A: BX NODULAR MUCOSA STOMACH/ BODY B: BX DUODENAL BULB C: BX 2ND PORTION DUODENUM POLYP Clinical History Epigastric pain Nodular mucosa stomach/body Final Diagnosis A. STOMACH, BODY, NODULAR MUCOSA, BIOPSY: GASTRIC OXYNTIC MUCOSA WITH MODERATE CHRONIC GASTRITIS. IMMUNOSTAIN FOR H. PYLORI IS NEGATIVE FOR ORGANISMS. B. DUODENAL BULB POLYP, BIOPSY: POLYPOID DUODENAL MUCOSA WITH CHRONIC INFLAMMATION AND EXTENSIVE GASTRIC METAPLASIA WITH HYPERPLASTIC CHANGE. NO DYSPLASIA/ADENOMA IDENTIFIED. C. DUODENUM, SECOND PORTION, POLYP, BIOPSY: POLYPOID FRAGMENT OF DUODENAL MUCOSA WITH CHRONIC INFLAMMATION AND SARABJIT'S GLANDS HYPERPLASIA. NO DYSPLASIA/ADENOMA IDENTIFIED. Electronically Signed Can Cristobal M.D. Gross Description A. Received in formalin, labeled "biopsy nodular mucosa stomach/body" are 2 olvera, irregular portions of soft tissue averaging 0.4 cm in greatest dimension. The specimens are submitted in toto in one cassette. B. Received in formalin, labeled "biopsy duodenal polyp" is a olvera, irregular portion of soft tissue measuring 0.3 cm in greatest dimension. The specimen is submitted in toto in one cassette. C. Received in formalin, labeled "biopsy second portion of duodenum polyp" is a olvera, irregular portion of soft tissue measuring 0.3 cm in greatest dimension. The specimen is submitted in toto in one cassette. 02/07/2017 [facility]02/07/2017
== END 2017-02-07 12:37 | disposition home or self-care (01) ==
LOC: JASU-ENDO 08:59
PROVIDERS: ATTEND Internal Medicine Gastroenterology
PROC: 0DB68ZX Excision of Stomach, Via Natural or Artificial Opening Endoscopic, Diagnostic (ICD-10-PCS; 2017-02-07)
PROC: 0DB98ZX Excision of Duodenum, Via Natural or Artificial Opening Endoscopic, Diagnostic (ICD-10-PCS; principal; 2017-02-07 10:00)
DX: K29.50 Unspecified chronic gastritis without bleeding (principal); K29.80 Duodenitis without bleeding; K31.89 Other diseases of stomach and duodenum; K31.7 Polyp of stomach and duodenum; I10 Essential (primary) hypertension
CPT/HCPCS: 88305-TC; 88342-TC

== ENCOUNTER 2017-07-24 22:26 | Inpatient (IN) | payer OTHER ==
[2017-07-24] MEDS ORDERED: morphine CARPU-JECT 2 MG/1 ML DISP.SYRIN IVPUSH ONE (22:46)
--- NOTE | 2017-07-24 23:08 | PDOC ---
History of Present Illness - General Chief Complaint: Pain Stated Complaint: ABD PAIN - History of Present Illness Initial Comments: Ms Carter is a 56yo F with a PMHx of Chronic Alcoholism, HTN, CAD (s/p CABG), MVR, who presented w/ sharp epigastric pain. Pt states she has been having intermittent epigastric pain for the past month, but the pain has now become constant. Patient is writhing and moaning in pain, difficult to get a proper history. Pain is worse w/ bowel movements and talking, improves w/ lying down in flexed position. Endorses daily alcohol intake, last drink was today. Denies hematemesis, hemoptysis. Endorses NBMB emesis x3 due to pain. Denies radiation to back. Denies burning sensation into chest. Endorses squeezing chest tightness that started today. SHx - Chronic alcohol intake, smoker, no drugs Allergies - NKDA PMD - Dr Kenneth Alvarez Past History - Past Medical History Allergies/Adverse Reactions: Allergies Allergy/AdvReac Type Severity Reaction Status Date / Time No Known Allergies Allergy Verified 07/24/17 22:53 Home Medications: Ambulatory Orders Amlodipine Besylate [Norvasc -] 10 mg PO DAILY #30 tablet 12/02/16 Sertraline HCl [Zoloft -] 50 mg PO DAILY #30 tablet 12/05/16 Cyanocobalamin [Vitamin B12 -] 1,000 mcg PO DAILY 01/31/17 Ferrous Sulfate 325 mg PO DAILY 01/31/17 Doxylamine Succinate [Sleep Aid] 25 mg PO HS 02/07/17 Gabapentin [Neurontin -] 200 mg PO HS 07/24/17 Naproxen [Naprosyn -] 500 mg PO BID 07/24/17 Thiamine Mononitrate [Vitamin B-1] 100 mg PO DAILY 07/24/17 Anemia: No Asthma: No Cancer: No Cardiac Disorders: Yes (MITRAL VALVE REPAIR) CVA: No COPD: No CHF: No Dementia: No Diabetes: No GI Disorders: No Disorders: No HTN: Yes Hypercholesterolemia: No Kidney Stones: No Liver Disease: No Psychiatric Problems: Yes (panic attacks) Seizures: Yes (RELATED TO BRAIN SURGERY) Thyroid Disease: No - Surgical History Abdominal Surgery: No Appendectomy: No Cardiac Surgery: Yes (01/2012 annuloplasty ring, cabg) Cholecystectomy: No Lung Surgery: No Neurologic Surgery: No (BLEED S/P FALL) Orthopedic Surgery: No - Reproductive History PID: No - Immunization History Immunization Up to Date: Yes - Suicide/Smoking/Psychosocial Hx Smoking Status: Yes Smoking History: Current every day smoker Have you smoked in the past 12 months: Yes Number of Cigarettes Smoked Daily: 20 Cigars Per Day: 0 Information on smoking cessation initiated: No 'Breaking Loose' booklet given: 01/31/17 Hx Alcohol Use: Yes (daily) Drug/Substance Use Hx: No Substance Use Type: Alcohol Hx Substance Use Treatment: Yes (this is her first inpatient rehabilitation treatment) *Physical Exam - Vital Signs Last Vital Signs Temp Pulse Resp BP Pulse Ox 97.9 F 87 20 118/81 100 07/24/17 22:32 07/24/17 22:32 07/24/17 22:32 07/24/17 22:32 07/24/17 22:32 - Physical Exam Comments: GEN: Lying down in a position. Moaning in pain, clenching abdomen HEENT: PERRLA, EOMi CV: S1, S2, RRR LUNG: CTABL, though difficult to hear due to moaning in pain ABD: Extreme tenderness to palpation in epigastrium. Appears soft. Difficult to assess for rebound MSK: No edema, no erythema NEURO: Difficult to obtain due to pain, moves all extremities symmetrically. ED Treatment Course - LABORATORY CBC & Chemistry Diagram: 07/24/17 23:30 07/24/17 23:30 - RADIOLOGY Radiology Studies Ordered: Category Date Time Status CXRPORT [CHEST X-RAY PORTABLE*] [RAD] Stat Radiology 07/24/17 22:49 Ordered Medical Decision Making - Medical Decision Making 56yo alcoholic F with cardiac history presents w/ severe epigastric pain and crushing chest pain. Hemodynamically stable DDx include: Pancreatitis, Peptic ulcer disease, ACS, Variceal bleed (less likely, no hematemsis) -- CBC, CMP -- Lipase -- Cardiac Profile, EKG -- IV Morphine 2mg -- CXR to r/o free air 07/25/17 00:53 CXR shows no free air, no acute CP pathology. EKG shows no new changes. Trops neg. Lipase is >12,000, c/w alcohol induced pancreatitis Low Brian's score On re-evaluation, patient's pain is much improved w/ morphine Anticipate admission to Dr Colon 07/25/17 01:29 Case d/w Dr Colon. Patient accepted for Admission *DC/Admit/Observation/Transfer Diagnosis at time of Disposition: Acute alcoholic pancreatitis Qualifiers: Acute pancreatitis complication: unspecified Qualified Code(s): K85.20 - Alcohol induced acute pancreatitis without necrosis or infection - Discharge Dispostion Condition at time of disposition: Stable Admit: Yes - Referrals Referrals: Martin Alvarez MD [Primary Care Provider] - - Patient Instructions - Post Discharge Activity
[2017-07-24] MEDS ORDERED: MORPHINE SULFATE 10 MG/1 ML *VIAL ONE (23:18)
[2017-07-24 23:40] LABS: BASO % 0.2 % (0-2.0); EOS % 1.4 % (0-4.5); HEMATOCRIT 36.2 % (32.4-45.2); HEMOGLOBIN 12.2 GM/dL (10.7-15.3); MCH 31.4 pg (25.7-33.7); MCHC 33.8 g/dl (32.0-36.0); MEAN CELL VOLUME 92.8 fl (80-96); MEAN PLT VOLUME 8.5 fl (7.5-11.1); MONO % 11.8 % (3.8-10.2); NEUT % 58.6 % (42.8-82.8); PLATELET COUNT 244 K/MM3 (134-434); RDW 15.1 % (11.6-15.6); WHITE BLOOD COUNT 4.7 K/mm3 (4.0-10.0)
[2017-07-24 23:52] LABS: INR 0.96 (0.82-1.09); PROTHROMBIN TIME (PATIENT) 10.9 SEC (9.98-11.88)
[2017-07-25 00:20] LABS: ALBUMIN 3.9 g/dl (3.4-5.0); ANION GAP 16 (8-16); BILIRUBIN,TOTAL 0.7 mg/dL (0.2-1.0); BLOOD UREA NITROGEN 11 mg/dL (7-18); CHLORIDE 103 mmol/L (98-107); CO2 20 mmol/L (21-32); CREATININE 0.8 mg/dL (0.55-1.02); GLUCOSE,RANDOM 119 mg/dL (74-106); SGOT/AST 18 U/L (15-37); SGPT/ALT 17 U/L (12-78); SODIUM 139 mmol/L (136-145); TOT PROT 7.9 g/dl (6.4-8.2)
[2017-07-25 00:21] LABS: ALK PHOS 144 U/L (45-117)
[2017-07-25] MEDS ORDERED: LACTATED RINGERS SOLUTION 1,000 ML/1,000 ML INFUS.BAG IV SCH (00:30)
[2017-07-25] MEDS ORDERED: KCL 10 MEQ IVPB 10 MEQ/100 ML INFUS.BAG IVPB ONE (00:51)
--- NOTE | 2017-07-25 01:24 | PDOC ---
Attending Attestation - Resident Resident Name: Julita Farrar - ED Attending Attestation I have performed the following: I have examined & evaluated the patient, The case was reviewed & discussed with the resident, I agree w/resident's findings & plan, Exceptions are as noted - HPI HPI: 07/25/17 01:24 slender 56 yo female p/w severe spigastric pain - Physicial Exam PE: 07/25/17 01:24 slender 56 yo female in distress with severe abd pain head ncat eyes collins eomi neck supple lungs cta b/l cvs [id number] abd severe upper abd tender extremities no deformity,no erythema skin warm,dry neuro axox3 psych anxious - Medical Decision Making 07/25/17 01:27 lipase 12,000 IMP pancreatitis plan admission ,Dr Colon
[2017-07-25] MEDS ORDERED: ONDANSETRON 4 MG/2 ML VIAL IVPUSH PRN ×2 (01:57→11:54)
[2017-07-25] MEDS ORDERED: morphine CARPU-JECT 10 MG/1 ML DISP.SYRIN IVPUSH ONE (01:57)
[2017-07-25] MEDS ORDERED: morphine CARPU-JECT 2 MG/1 ML DISP.SYRIN IVPUSH ONE (02:11)
[2017-07-25 03:49] VITALS: BMI 17.3
[2017-07-25] MEDS ORDERED: MORPHINE SULFATE 10 MG/1 ML *VIAL IVPUSH PRN ×2 (11:26→11:50)
[2017-07-25] MEDS: FERROUS SO4 325 MG TABLET (FP) PO SCH (12:12)
[2017-07-25] MEDS: SERTRALINE HCL 50 MG TABLET (FP) PO SCH (12:12)
[2017-07-25] MEDS: amLODIPine BESYLATE 10 MG TABLET (FP) PO SCH (12:12)
[2017-07-25] MEDS: DEXTROSE 5%-0.45% SALINE 1,000 ML IV SCH (12:12)
[2017-07-25] MEDS: THIAMINE HCL 100 MG TABLET (FP) PO SCH (12:12)
[2017-07-25 13:01] LABS: BASO % 0.1 % (0-2.0); EOS % 1.2 % (0-4.5); HEMATOCRIT 32.5 % (32.4-45.2); HEMOGLOBIN 10.7 GM/dL (10.7-15.3); LYMPH % 27.7 % (8-40); MEAN CELL VOLUME 93.9 fl (80-96); MEAN PLT VOLUME 8.6 fl (7.5-11.1); MONO % 14.1 % (3.8-10.2); NEUT % 56.9 % (42.8-82.8); PLATELET COUNT 214 K/MM3 (134-434); RBC 3.47 M/mm3 (3.60-5.2); RDW 14.9 % (11.6-15.6); WHITE BLOOD COUNT 5.9 K/mm3 (4.0-10.0)
[2017-07-25 13:26] LABS: ALBUMIN 3.3 g/dl (3.4-5.0); AMYLASE 468 U/L (25-115); ANION GAP 9 (8-16); BLOOD UREA NITROGEN 7 mg/dL (7-18); CALCIUM 7.9 mg/dL (8.5-10.1); CHLORIDE 108 mmol/L (98-107); CO2 26 mmol/L (21-32); CREATININE 0.5 mg/dL (0.55-1.02); GLUCOSE,RANDOM 83 mg/dL (74-106); POTASSIUM 3.1 mmol/L (3.5-5.1); SGOT/AST 14 U/L (15-37); SGPT/ALT 13 U/L (12-78); SODIUM 143 mmol/L (136-145)
[2017-07-25 13:31] LABS: ALK PHOS 121 U/L (45-117); BILIRUBIN,TOTAL 0.7 mg/dL (0.2-1.0); TOT PROT 6.3 g/dl (6.4-8.2)
[2017-07-25 13:34] LABS: LIPASE 6061 U/L (73-393)
--- NOTE | 2017-07-25 14:12 | EKG ---
Test Reason : Blood Pressure : / mmHG Vent. Rate : 077 BPM Atrial Rate : 077 BPM P-R Int : 136 ms QRS Dur : 080 ms QT Int : 412 ms P-R-T Axes : 056 064 066 degrees QTc Int : 466 ms NORMAL SINUS RHYTHM POSSIBLE LEFT ATRIAL ENLARGEMENT LEFT VENTRICULAR HYPERTROPHY septal infarct ABNORMAL ECG WHEN COMPARED WITH ECG OF 19-MAY-2017 12:04, QUESTIONABLE CHANGE IN INITIAL FORCES OF ANTERIOR LEADS Confirmed by MD Bella, Po ([id number]) on 07/25/2017 2:11:55 PM Referred By: Confirmed By:Po Blanco MD
--- NOTE | 2017-07-25 19:20 | CON.GI ---
Consult Consult Specialty:: GI Referred by:: Dr Kenneth Alvarez/md Isaiah - History of Present Illness History of Present Illness: 56 y/o F wiht PMH of alcohol pancreatitis was admitted because of severe epigastric pain, no fever, no nausea and no vomiting. Overnight received IV hydration. SHe continue to have abdominal pain. 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 (SDH) Cardio/Vascular: Yes: HTN, Hyperlipdemia Pulmonary: Yes: COPD Gastrointestinal: Yes: Pancreatitis ...LMP: 08/19/06 Psych: Yes: Addictions, Anxiety, Depression, Other (ETOH abuse) - Past Surgical History Past Surgical History: Yes: None (Craniotomy) - Alcohol/Substance Use Hx Alcohol Use: Yes (daily) - Smoking History Smoking history: Current every day smoker Have you smoked in the past 12 months: Yes Aproximately how many cigarettes per day: 20 - Social History ADL: Independent History of Recent Travel: No Home Medications - Allergies Allergies/Adverse Reactions: Allergies Allergy/AdvReac Type Severity Reaction Status Date / Time No Known Allergies Allergy Verified 07/24/17 22:53 - Home Medications Home Medications: Ambulatory Orders Amlodipine Besylate [Norvasc -] 10 mg PO DAILY #30 tablet 12/02/16 Sertraline HCl [Zoloft -] 50 mg PO DAILY #30 tablet 12/05/16 Cyanocobalamin [Vitamin B12 -] 1,000 mcg PO DAILY 01/31/17 Ferrous Sulfate 325 mg PO DAILY 01/31/17 Doxylamine Succinate [Sleep Aid] 25 mg PO HS 02/07/17 Gabapentin [Neurontin -] 200 mg PO HS 07/24/17 Naproxen [Naprosyn -] 500 mg PO BID 07/24/17 Thiamine Mononitrate [Vitamin B-1] 100 mg PO DAILY 07/24/17 Family Disease History - Family Disease History Family Disease History: Diabetes: Father, Mother, Brother Review of Systems - Review of Systems Constitutional: denies: Fever Eyes: denies: Blind Spots HENT: denies: Difficult Swallowing Neck: denies: Decreased ROM Cardiovascular: denies: Chest Pain Respiratory: denies: Cough, SOB Gastrointestinal: reports: Abdominal Pain. denies: Constipation, Diarrhea, Melena, Rectal Bleeding, Vomiting Physical Exam-GI Vital Signs: Vital Signs Temperature 98.5 F 07/25/17 16:21 Pulse Rate 62 07/25/17 16:21 Respiratory Rate 20 07/25/17 16:21 Blood Pressure 124/80 07/25/17 16:21 O2 Sat by Pulse Oximetry (%) 96 07/25/17 09:00 Constitutional: Yes: Well Nourished Eyes: Yes: Conjunctiva Clear HENT: Yes: Atraumatic Neck: Yes: Supple Cardiovascular: Yes: Regular Rate and Rhythm Respiratory: Yes: CTA Bilaterally ...Palpate: Yes: Soft, Tenderness, Epigastium. No: Firm/Rigid, Guarding, Hepatomegaly, Mass, Pulsatile Mass, Splenomegaly, Tenderness Labs: CBC, BMP 07/25/17 12:26 07/25/17 12:26 INR, PTT INR 0.96 (0.82-1.09) 07/24/17 23:30 Imaging - Results Cat Scan: Image Reviewed (edematous pancreas, no fluid collection) Problem List - Problems (1) Acute alcoholic pancreatitis Assessment/Plan: R. continue IV hydraton IV Protonix IV Reglan keep NPO until abdominal pain is improved Code(s): K85.20 - ALCOHOL INDUCED ACUTE PANCREATITIS WITHOUT NECROSIS OR INFCT Qualifiers: Acute pancreatitis complication: unspecified Qualified Code(s): K85.20 - Alcohol induced acute pancreatitis without necrosis or infection
[2017-07-25] MEDS ORDERED: PANTOPRAZOLE SODIUM 40 MG in SODIUM CHLORIDE 100 ML IVPB ONE (19:30)
--- NOTE | 2017-07-25 21:12 | HP ---
Admitting History and Physical - Admission History of Present Illness: Pt is a 56 y/o female with PMH significant for HTN, CAD (s/p CABG), MVR and chronic etoh abuse. Pt has been in rehab for etoh abuse multiple times. Pt has been drinking for the pasty few months again and states taht her last drink was on 07/23/17. She drinks about a pint of vodka daily. Pt states that she developed acute epigastric pain and came to the ER. However she states taht for the past month she has been having this [pain intermittently. The pain has an intensity of 10/10 and radiates to her back. About 24 hrs prior to coming to the ER she also had vomiting. Pt denies any fever/chills. In the ER pt found to have elevated lipase of 12,[address] scan abd showed acute pancreatitis. - Past Medical History DIE TRIMMER: Yes: Seizure, Other (SDH) Cardiovascular: Yes: HTN, Hyperlipdemia Pulmonary: Yes: COPD Gastrointestinal: Yes: Pancreatitis ...LMP: 08/19/06 Heme/Onc: Yes: Anemia Psych: Yes: Addictions, Anxiety, Depression, Other (ETOH abuse) - Past Surgical History Past Surgical History: Yes: None (Craniotomy) - Smoking History Smoking history: Current every day smoker Have you smoked in the past 12 months: Yes Aproximately how many cigarettes per day: 20 - Alcohol/Substance Use Hx Alcohol Use: Yes (daily) - Social History ADL: Independent History of Recent Travel: No Home Medications - Allergies Allergies/Adverse Reactions: Allergies Allergy/AdvReac Type Severity Reaction Status Date / Time No Known Allergies Allergy Verified 07/24/17 22:53 - Home Medications Home Medications: Ambulatory Orders Amlodipine Besylate [Norvasc -] 10 mg PO DAILY #30 tablet 12/02/16 Sertraline HCl [Zoloft -] 50 mg PO DAILY #30 tablet 12/05/16 Cyanocobalamin [Vitamin B12 -] 1,000 mcg PO DAILY 01/31/17 Ferrous Sulfate 325 mg PO DAILY 01/31/17 Doxylamine Succinate [Sleep Aid] 25 mg PO HS 02/07/17 Gabapentin [Neurontin -] 200 mg PO HS 07/24/17 Naproxen [Naprosyn -] 500 mg PO BID 07/24/17 Thiamine Mononitrate [Vitamin B-1] 100 mg PO DAILY 07/24/17 Family Disease History - Family Disease History Family History: Unremarkable Family Disease History: Diabetes: Father, Mother, Brother Review of Systems - Review of Systems Constitutional: reports: Loss of Appetite, Weakness HENT: reports: No Symptoms Neck: reports: No Symptoms Cardiovascular: reports: No Symptoms Respiratory: reports: No Symptoms Gastrointestinal: reports: Abdominal Pain, Nausea, Vomiting Genitourinary: reports: No Symptoms Musculoskeletal: reports: Back Pain Physical Examination Vital Signs: Vital Signs Temperature 98.5 F 07/25/17 16:21 Pulse Rate 62 07/25/17 16:21 Respiratory Rate 20 07/25/17 16:21 Blood Pressure 124/80 07/25/17 16:21 O2 Sat by Pulse Oximetry (%) 96 07/25/17 09:00 Constitutional: Yes: Cachectic Eyes: Yes: WNL HENT: Yes: WNL Neck: Yes: WNL, Supple Cardiovascular: Yes: WNL, Regular Rate and Rhythm Respiratory: Yes: WNL, Regular, CTA Bilaterally Gastrointestinal: Yes: Normal Bowel Sounds, Tenderness Musculoskeletal: Yes: WNL Extremities: Yes: WNL Edema: No Neurological: Yes: WNL, Alert, Oriented ...Motor Strength: WNL Labs: CBC, BMP 07/25/17 12:26 07/25/17 12:26 Problem List - Problems (1) Acute alcoholic pancreatitis Assessment/Plan: Cont IVF Cont NPO Monitor labsr GI consiult Long d/w pt about need for etoh cessation Code(s): K85.20 - ALCOHOL INDUCED ACUTE PANCREATITIS WITHOUT NECROSIS OR INFCT Qualifiers: Acute pancreatitis complication: unspecified Qualified Code(s): K85.20 - Alcohol induced acute pancreatitis without necrosis or infection (2) Alcohol abuse Assessment/Plan: Psych consult Ativan prn and monitor for etoh w/drawal Code(s): F10.10 - ALCOHOL ABUSE, UNCOMPLICATED (3) Cachexia Code(s): R64 - CACHEXIA
[2017-07-25] MEDS: GABAPENTIN 100 MG CAPSULE (FP) PO SCH (21:28)
[2017-07-25] MEDS: HEPARIN NA (PORCINE) 5,000 UNITS/ML 1ML VIAL SQ SCH (21:28)
[2017-07-25] MEDS: METOCLOPRAMIDE HCL INJECTION 10 MG/2 ML VIAL IVPB SCH (21:28)
[2017-07-25] MEDS ORDERED: KCL 10 MEQ IVPB 10 MEQ/100 ML INFUS.BAG IVPB SCH (23:45)
[2017-07-26] MEDS: POTASSIUM CHLORIDE 10 MEQ in SODIUM CHLORIDE 100 ML IVPB SCH ×3 (00:30→02:49)
[2017-07-26] MEDS: METOCLOPRAMIDE HCL INJECTION 10 MG/2 ML VIAL IVPB SCH ×3 (01:48→17:16)
[2017-07-26] MEDS: DEXTROSE 5%-0.45% SALINE 1,000 ML IV SCH ×2 (06:32→17:16)
[2017-07-26 07:54] LABS: BASO % 0.3 % (0-2.0); EOS % 2.1 % (0-4.5); HEMATOCRIT 33.3 % (32.4-45.2); HEMOGLOBIN 11.2 GM/dL (10.7-15.3); LYMPH % 31.3 % (8-40); MCH 31.4 pg (25.7-33.7); MCHC 33.6 g/dl (32.0-36.0); MEAN CELL VOLUME 93.4 fl (80-96); MEAN PLT VOLUME 8.9 fl (7.5-11.1); MONO % 12.4 % (3.8-10.2); NEUT % 53.9 % (42.8-82.8); PLATELET COUNT 219 K/MM3 (134-434); RBC 3.56 M/mm3 (3.60-5.2); RDW 15.6 % (11.6-15.6); WHITE BLOOD COUNT 4.8 K/mm3 (4.0-10.0)
[2017-07-26 09:37] LABS: ALBUMIN 3.3 g/dl (3.4-5.0); ANION GAP 12 (8-16); BLOOD UREA NITROGEN 5 mg/dL (7-18); CALCIUM 8.1 mg/dL (8.5-10.1); CHLORIDE 105 mmol/L (98-107); CO2 21 mmol/L (21-32); GLUCOSE,RANDOM 91 mg/dL (74-106); POTASSIUM 3.2 mmol/L (3.5-5.1); SODIUM 138 mmol/L (136-145)
[2017-07-26 09:40] LABS: ALK PHOS 125 U/L (45-117); BILIRUBIN,TOTAL 0.5 mg/dL (0.2-1.0); CREATININE 0.5 mg/dL (0.55-1.02); SGOT/AST 18 U/L (15-37); SGPT/ALT 12 U/L (12-78); TOT PROT 6.7 g/dl (6.4-8.2)
[2017-07-26 10:26] LABS: LIPASE 2540 U/L (73-393)
[2017-07-26] MEDS: THIAMINE HCL 100 MG TABLET (FP) PO SCH (10:27)
[2017-07-26] MEDS: amLODIPine BESYLATE 10 MG TABLET (FP) PO SCH (10:27)
[2017-07-26] MEDS: HEPARIN NA (PORCINE) 5,000 UNITS/ML 1ML VIAL SQ SCH ×2 (10:28→21:10)
[2017-07-26] MEDS: SERTRALINE HCL 50 MG TABLET (FP) PO SCH (10:28)
[2017-07-26] MEDS: FERROUS SO4 325 MG TABLET (FP) PO SCH (10:28)
--- NOTE | 2017-07-26 18:42 | PN ---
GI Progress Note Subjective: abdominal pain less, no nause and vomiting - Objective Vital Signs: Vital Signs Temperature 98.1 F 07/26/17 18:11 Pulse Rate 62 07/26/17 18:11 Respiratory Rate 20 07/26/17 18:11 Blood Pressure 115/71 07/26/17 18:11 O2 Sat by Pulse Oximetry (%) 96 07/26/17 09:00 Constitutional: Well Nourished Eyes: Yes: Conjunctiva Clear HENT: Yes: Normocephalic Neck: Yes: Trachea Midline Cardiovascular: Yes: Regular Rate and Rhythm Respiratory: Yes: CTA Bilaterally ...Palpate: Yes: Soft, Tenderness, Epigastium (--mild). No: Firm/Rigid, Guarding, Mass, Pulsatile Mass, Splenomegaly, Tenderness Labs: CBC, BMP 07/26/17 06:35 07/26/17 06:35 INR, PTT INR 0.96 (0.82-1.09) 07/24/17 23:30 Problem List - Problems (1) Acute alcoholic pancreatitis Assessment/Plan: resolving R> clear liquids intructed to continue AA Code(s): K85.20 - ALCOHOL INDUCED ACUTE PANCREATITIS WITHOUT NECROSIS OR INFCT Qualifiers: Acute pancreatitis complication: unspecified Qualified Code(s): K85.20 - Alcohol induced acute pancreatitis without necrosis or infection
--- NOTE | 2017-07-26 20:59 | PN ---
Progress Note, Physician - Current Medication List Current Medications: Active Medications Amlodipine Besylate (Norvasc -) 10 mg PO DAILY [facility] Last Admin: 07/26/17 10:27 Dose: 10 mg Ferrous Sulfate (Feosol -) 325 mg PO DAILY [facility] Last Admin: 07/26/17 10:28 Dose: 325 mg Gabapentin (Neurontin -) 200 mg PO HS [facility] Last Admin: 07/25/17 21:28 Dose: 200 mg Heparin Sodium (Porcine) (Heparin -) 5,000 unit SQ BID [facility] Last Admin: 07/26/17 10:28 Dose: 5,000 unit Potassium Chloride (Potassium Chloride 10 Meq Premix Ivpb -) 10 meq in 100 mls @ 100 mls/hr IVPB Q60M ONE Last Admin: 07/25/17 00:51 Dose: 100 mls/hr Dextrose/Sodium Chloride (D5-1/2ns -) 1,000 mls @ 100 mls/hr IV ASDIR [facility] Last Admin: 07/26/17 17:16 Dose: 100 mls/hr Metoclopramide HCl (Reglan Injection -) 10 mg IVPB Q8H-IV [facility] Last Admin: 07/26/17 17:16 Dose: 10 mg Morphine Sulfate (Morphine Injection -) 4 mg IVPUSH Q6H PRN PRN Reason: pain Last Admin: 07/25/17 21:38 Dose: 4 mg Ondansetron HCl (Zofran Injection) 4 mg IVPUSH Q6H PRN PRN Reason: NAUSEA Sertraline HCl (Zoloft -) 50 mg PO DAILY [facility] Last Admin: 07/26/17 10:28 Dose: 50 mg Thiamine HCl (Vitamin B1 -) 100 mg PO DAILY [facility] Last Admin: 07/26/17 10:27 Dose: 100 mg - Objective Vital Signs: Vital Signs Temperature 98.1 F 07/26/17 18:11 Pulse Rate 62 07/26/17 18:11 Respiratory Rate 20 07/26/17 18:11 Blood Pressure 115/71 07/26/17 18:11 O2 Sat by Pulse Oximetry (%) 96 07/26/17 09:00 Labs: CBC, BMP 07/26/17 06:35 07/26/17 06:35 INR, PTT INR 0.96 (0.82-1.09) 07/24/17 23:30 Problem List - Problems (1) Acute alcoholic pancreatitis Code(s): K85.20 - ALCOHOL INDUCED ACUTE PANCREATITIS WITHOUT NECROSIS OR INFCT Qualifiers: Acute pancreatitis complication: unspecified Qualified Code(s): K85.20 - Alcohol induced acute pancreatitis without necrosis or infection (2) Alcohol abuse Code(s): F10.10 - ALCOHOL ABUSE, UNCOMPLICATED (3) Cachexia Code(s): R64 - CACHEXIA
[2017-07-26] MEDS: GABAPENTIN 100 MG CAPSULE (FP) PO SCH (21:10)
[2017-07-26] MEDS ORDERED: POTASSIUM CHLORIDE 10 MEQ in SODIUM CHLORIDE 100 ML IVPB SCH (23:45)
[2017-07-27] MEDS: METOCLOPRAMIDE HCL INJECTION 10 MG/2 ML VIAL IVPB SCH ×3 (02:06→19:21)
[2017-07-27] MEDS: HEPARIN NA (PORCINE) 5,000 UNITS/ML 1ML VIAL SQ SCH ×2 (09:34→22:40)
[2017-07-27] MEDS: FERROUS SO4 325 MG TABLET (FP) PO SCH (09:35)
[2017-07-27] MEDS: amLODIPine BESYLATE 10 MG TABLET (FP) PO SCH (09:35)
[2017-07-27] MEDS: THIAMINE HCL 100 MG TABLET (FP) PO SCH (09:35)
[2017-07-27] MEDS: SERTRALINE HCL 50 MG TABLET (FP) PO SCH (09:35)
[2017-07-27] MEDS: D5-1/2NS+20 MEQ KCL - 20 MEQ/1,000 ML INFUS.BAG IV SCH (09:41)
[2017-07-27 10:32] LABS: HEMATOCRIT 31.1 % (32.4-45.2); HEMOGLOBIN 10.4 GM/dL (10.7-15.3); MCH 31.4 pg (25.7-33.7); MCHC 33.4 g/dl (32.0-36.0); MEAN PLT VOLUME 8.7 fl (7.5-11.1); PLATELET COUNT 221 K/MM3 (134-434); RBC 3.31 M/mm3 (3.60-5.2); RDW 15.4 % (11.6-15.6); WHITE BLOOD COUNT 5.7 K/mm3 (4.0-10.0)
[2017-07-27 10:58] LABS: ALBUMIN 3.1 g/dl (3.4-5.0); ANION GAP 11 (8-16); BILIRUBIN,TOTAL 0.3 mg/dL (0.2-1.0); CALCIUM 7.4 mg/dL (8.5-10.1); CHLORIDE 105 mmol/L (98-107); CO2 23 mmol/L (21-32); CREATININE 0.6 mg/dL (0.55-1.02); GLUCOSE,RANDOM 130 mg/dL (74-106); SGOT/AST 16 U/L (15-37); SGPT/ALT 11 U/L (12-78); SODIUM 139 mmol/L (136-145); TOT PROT 6.2 g/dl (6.4-8.2)
[2017-07-27 10:59] LABS: ALK PHOS 108 U/L (45-117)
[2017-07-27 11:04] LABS: LIPASE 1276 U/L (73-393)
[2017-07-27 11:06] LABS: BLOOD UREA NITROGEN 2 mg/dL (7-18); POTASSIUM 2.9 mmol/L (3.5-5.1)
[2017-07-27] MEDS ORDERED: POTASSIUM CHLORIDE TABS 20 MEQ TABLET.ER (FP) PO ONE (12:00)
[2017-07-27] MEDS ORDERED: PT OWN MED DRAWER 7, Y5N ONE (12:21)
[2017-07-27] MEDS: POTASSIUM CHLORIDE 10 MEQ in SODIUM CHLORIDE 100 ML IVPB SCH ×2 (13:15→14:17)
[2017-07-27 20:04] LABS: ANION GAP 8 (8-16); CALCIUM 7.8 mg/dL (8.5-10.1); CHLORIDE 111 mmol/L (98-107); CO2 23 mmol/L (21-32); CREATININE 0.5 mg/dL (0.55-1.02); GLUCOSE,RANDOM 88 mg/dL (74-106); POTASSIUM 3.5 mmol/L (3.5-5.1); SODIUM 142 mmol/L (136-145)
--- NOTE | 2017-07-27 20:26 | PN ---
GI Progress Note Subjective: developed diarrhea overnight after clear liquids - Objective Vital Signs: Vital Signs Temperature 98.9 F 07/27/17 14:56 Pulse Rate 106 H 07/27/17 14:56 Respiratory Rate 20 07/27/17 08:41 Blood Pressure 143/71 07/27/17 14:56 O2 Sat by Pulse Oximetry (%) 97 07/27/17 09:00 Constitutional: Well Nourished Eyes: Yes: Conjunctiva Clear HENT: Yes: Atraumatic Neck: Yes: Supple Cardiovascular: Yes: Regular Rate and Rhythm Respiratory: Yes: CTA Bilaterally ...Palpate: Yes: Soft, Tenderness, Epigastium. No: Firm/Rigid, Guarding, Hepatomegaly, Mass, Pulsatile Mass Labs: CBC, BMP 07/27/17 10:00 INR, PTT INR 0.96 (0.82-1.09) 07/24/17 23:30 Problem List - Problems (1) Acute alcoholic pancreatitis Assessment/Plan: resolving Code(s): K85.20 - ALCOHOL INDUCED ACUTE PANCREATITIS WITHOUT NECROSIS OR INFCT Qualifiers: Acute pancreatitis complication: unspecified Qualified Code(s): K85.20 - Alcohol induced acute pancreatitis without necrosis or infection (2) Diarrhea Assessment/Plan: r/o c diff R> stool for c diff IV Flagyl Code(s): R19.7 - DIARRHEA, UNSPECIFIED
[2017-07-27 20:57] LABS: BLOOD UREA NITROGEN 2 mg/dL (7-18)
--- NOTE | 2017-07-27 22:14 | PN ---
Progress Note, Physician - Current Medication List Current Medications: Active Medications Amlodipine Besylate (Norvasc -) 10 mg PO DAILY [facility] Last Admin: 07/27/17 09:35 Dose: 10 mg Ferrous Sulfate (Feosol -) 325 mg PO DAILY [facility] Last Admin: 07/27/17 09:35 Dose: 325 mg Gabapentin (Neurontin -) 200 mg PO HS [facility] Last Admin: 07/26/17 21:10 Dose: 200 mg Heparin Sodium (Porcine) (Heparin -) 5,000 unit SQ BID [facility] Last Admin: 07/27/17 09:34 Dose: 5,000 unit Potassium Chloride (Potassium Chloride 10 Meq Premix Ivpb -) 10 meq in 100 mls @ 100 mls/hr IVPB Q60M ONE Last Admin: 07/25/17 00:51 Dose: 100 mls/hr Potassium Chloride/Dextrose/Sod Cl (D5-1/2ns+20 Meq Kcl -) 20 meq in 1,000 mls @ 100 mls/hr IV ASDIR [facility] Last Admin: 07/27/17 09:41 Dose: 100 mls/hr Metronidazole (Flagyl 500mg Premixed Ivpb -) 500 mg in 100 mls @ 100 mls/hr IVPB Q8H-IV DK Morphine Sulfate (Morphine Injection -) 4 mg IVPUSH Q6H PRN PRN Reason: pain Last Admin: 07/25/17 21:38 Dose: 4 mg Ondansetron HCl (Zofran Injection) 4 mg IVPUSH Q6H PRN PRN Reason: NAUSEA Sertraline HCl (Zoloft -) 50 mg PO DAILY [facility] Last Admin: 07/27/17 09:35 Dose: 50 mg Thiamine HCl (Vitamin B1 -) 100 mg PO DAILY [facility] Last Admin: 07/27/17 09:35 Dose: 100 mg - Objective Vital Signs: Vital Signs Temperature 97.8 F 07/27/17 21:49 Pulse Rate 84 07/27/17 21:49 Respiratory Rate 20 07/27/17 21:49 Blood Pressure 126/70 07/27/17 21:49 O2 Sat by Pulse Oximetry (%) 97 07/27/17 09:00 Labs: CBC, BMP 07/27/17 10:00 07/27/17 18:15 INR, PTT INR 0.96 (0.82-1.09) 07/24/17 23:30 Problem List - Problems (1) Acute alcoholic pancreatitis Code(s): K85.20 - ALCOHOL INDUCED ACUTE PANCREATITIS WITHOUT NECROSIS OR INFCT Qualifiers: Acute pancreatitis complication: unspecified Qualified Code(s): K85.20 - Alcohol induced acute pancreatitis without necrosis or infection (2) Alcohol abuse Code(s): F10.10 - ALCOHOL ABUSE, UNCOMPLICATED (3) Cachexia Code(s): R64 - CACHEXIA
[2017-07-27] MEDS: GABAPENTIN 100 MG CAPSULE (FP) PO SCH (22:39)
[2017-07-28] MEDS: D5-1/2NS+20 MEQ KCL - 20 MEQ/1,000 ML INFUS.BAG IV SCH ×2 (05:15→10:19)
[2017-07-28] MEDS ORDERED: METOCLOPRAMIDE HCL INJECTION 10 MG/2 ML VIAL IVPB SCH (10:00)
[2017-07-28] MEDS: HEPARIN NA (PORCINE) 5,000 UNITS/ML 1ML VIAL SQ SCH ×2 (10:18→21:03)
[2017-07-28] MEDS: amLODIPine BESYLATE 10 MG TABLET (FP) PO SCH (10:19)
[2017-07-28] MEDS: FERROUS SO4 325 MG TABLET (FP) PO SCH (10:19)
[2017-07-28] MEDS: THIAMINE HCL 100 MG TABLET (FP) PO SCH (10:19)
[2017-07-28] MEDS: SERTRALINE HCL 50 MG TABLET (FP) PO SCH (10:19)
--- NOTE | 2017-07-28 17:29 | PN ---
GI Progress Note Subjective: feels better. hola;eraterd diet, diarrhea resolved ( most likely secondary to fruit juices) - Objective Vital Signs: Vital Signs Temperature 98.8 F 07/28/17 15:42 Pulse Rate 76 07/28/17 15:42 Respiratory Rate 18 07/28/17 15:42 Blood Pressure 112/72 07/28/17 15:42 O2 Sat by Pulse Oximetry (%) 98 07/28/17 09:00 Constitutional: Well Nourished Eyes: Yes: Conjunctiva Clear HENT: Yes: Atraumatic Neck: Yes: Trachea Midline Cardiovascular: Yes: Regular Rate and Rhythm Respiratory: Yes: CTA Bilaterally ...Palpate: Yes: Soft. No: Firm/Rigid, Guarding, Hepatomegaly, Mass, Pulsatile Mass, Splenomegaly, Tenderness Labs: CBC, BMP 07/27/17 10:00 07/27/17 18:15 INR, PTT INR 0.96 (0.82-1.09) 07/24/17 23:30 Problem List - Problems (1) Acute alcoholic pancreatitis Assessment/Plan: R>resolved Code(s): K85.20 - ALCOHOL INDUCED ACUTE PANCREATITIS WITHOUT NECROSIS OR INFCT Qualifiers: Acute pancreatitis complication: unspecified Qualified Code(s): K85.20 - Alcohol induced acute pancreatitis without necrosis or infection (2) Diarrhea Assessment/Plan: resolved R. continue Flagyl, Protonix, reglan as an outpatient Code(s): R19.7 - DIARRHEA, UNSPECIFIED
[2017-07-28] MEDS: METOCLOPRAMIDE HCL 10 MG TABLET (FP) PO SCH (17:52)
[2017-07-28] MEDS: GABAPENTIN 100 MG CAPSULE (FP) PO SCH (21:03)
[2017-07-28] MEDS: metroNIDAZOLE 250 MG TABLET PO SCH (21:03)
--- NOTE | 2017-07-28 23:31 | PN ---
Progress Note, Physician - Current Medication List Current Medications: Active Medications Amlodipine Besylate (Norvasc -) 10 mg PO DAILY [facility] Last Admin: 07/28/17 10:19 Dose: 10 mg Ferrous Sulfate (Feosol -) 325 mg PO DAILY [facility] Last Admin: 07/28/17 10:19 Dose: 325 mg Gabapentin (Neurontin -) 200 mg PO HS [facility] Last Admin: 07/28/17 21:03 Dose: 200 mg Heparin Sodium (Porcine) (Heparin -) 5,000 unit SQ BID [facility] Last Admin: 07/28/17 21:03 Dose: 5,000 unit Potassium Chloride (Potassium Chloride 10 Meq Premix Ivpb -) 10 meq in 100 mls @ 100 mls/hr IVPB Q60M ONE Last Admin: 07/25/17 00:51 Dose: 100 mls/hr Metoclopramide HCl (Reglan -) 5 mg PO TIDAC [facility] Last Admin: 07/28/17 17:52 Dose: 5 mg Metronidazole (Flagyl -) 250 mg PO TID [facility] Last Admin: 07/28/17 21:03 Dose: 250 mg Ondansetron HCl (Zofran Injection) 4 mg IVPUSH Q6H PRN PRN Reason: NAUSEA Sertraline HCl (Zoloft -) 50 mg PO DAILY [facility] Last Admin: 07/28/17 10:19 Dose: 50 mg Thiamine HCl (Vitamin B1 -) 100 mg PO DAILY [facility] Last Admin: 07/28/17 10:19 Dose: 100 mg - Objective Vital Signs: Vital Signs Temperature 98.1 F 07/28/17 22:00 Pulse Rate 68 07/28/17 22:00 Respiratory Rate 18 07/28/17 22:00 Blood Pressure 130/72 07/28/17 22:00 O2 Sat by Pulse Oximetry (%) 98 07/28/17 22:00 Labs: CBC, BMP 07/27/17 10:00 07/27/17 18:15 INR, PTT INR 0.96 (0.82-1.09) 07/24/17 23:30 Problem List - Problems (1) Acute alcoholic pancreatitis Assessment/Plan: Cont IVF Tolerating diet Monitor labs Long d/w pt about need for etoh cessation Code(s): K85.20 - ALCOHOL INDUCED ACUTE PANCREATITIS WITHOUT NECROSIS OR INFCT Qualifiers: Acute pancreatitis complication: unspecified Qualified Code(s): K85.20 - Alcohol induced acute pancreatitis without necrosis or infection (2) Alcohol abuse Assessment/Plan: Ativan prn and monitor for etoh w/drawal Code(s): F10.10 - ALCOHOL ABUSE, UNCOMPLICATED (3) Cachexia Code(s): R64 - CACHEXIA (4) Hypokalemia Assessment/Plan: Resolved Treated w/ K+ Code(s): E87.6 - HYPOKALEMIA (5) Malnutrition Assessment/Plan: Due to etoh abuse Code(s): E46 - UNSPECIFIED PROTEIN-CALORIE MALNUTRITION
[2017-07-29 05:37] VITALS: TEMP 98.4
[2017-07-29] MEDS: METOCLOPRAMIDE HCL 10 MG TABLET (FP) PO SCH ×2 (06:13→11:42)
[2017-07-29] MEDS: metroNIDAZOLE 250 MG TABLET PO SCH ×2 (06:13→13:36)
[2017-07-29] MEDS: SERTRALINE HCL 50 MG TABLET (FP) PO SCH (09:35)
[2017-07-29] MEDS: amLODIPine BESYLATE 10 MG TABLET (FP) PO SCH (09:35)
[2017-07-29] MEDS: THIAMINE HCL 100 MG TABLET (FP) PO SCH (09:35)
[2017-07-29] MEDS: FERROUS SO4 325 MG TABLET (FP) PO SCH (09:35)
[2017-07-29] MEDS: HEPARIN NA (PORCINE) 5,000 UNITS/ML 1ML VIAL SQ SCH (09:35)
[2017-07-29 14:11] VITALS: BP 116/74; PULSE 64
--- NOTE | 2017-07-29 22:20 | DS ---
Physical Examination Vital Signs: Vital Signs Temperature 98.4 F 07/29/17 14:10 Pulse Rate 64 07/29/17 14:10 Respiratory Rate 20 07/29/17 08:00 Blood Pressure 116/74 07/29/17 14:10 O2 Sat by Pulse Oximetry (%) 98 07/29/17 08:00 Labs: CBC, BMP 07/27/17 10:00 07/27/17 18:15 Discharge Summary Reason For Visit: ALCOHOL-INDUCED ACUTE PANCREATITIS Condition: Good - Instructions Diet, Activity, Other Instructions: Regular diet See Dr Alvarez in 1 week No alcohol intake Referrals: Martin Alvarez MD [Primary Care Provider] - Disposition: HOME - Home Medications Comprehensive Discharge Medication List: Ambulatory Orders Amlodipine Besylate [Norvasc -] 10 mg PO DAILY #30 tablet 12/02/16 Sertraline HCl [Zoloft -] 50 mg PO DAILY #30 tablet 12/05/16 Cyanocobalamin [Vitamin B12 -] 1,000 mcg PO DAILY 01/31/17 Ferrous Sulfate 325 mg PO DAILY 01/31/17 Doxylamine Succinate [Sleep Aid] 25 mg PO HS 02/07/17 Gabapentin [Neurontin -] 200 mg PO HS 07/24/17 Naproxen [Naprosyn -] 500 mg PO BID 07/24/17 Thiamine Mononitrate [Vitamin B-1] 100 mg PO DAILY 07/24/17 Metronidazole [Flagyl -] 250 mg PO TID #15 tablet 07/29/17
== END 2017-07-29 15:50 | disposition home or self-care (01) | DRG 282 ==
LOC: JER 22:26 → JERBED 07-25 01:27 → J6S 07-25 03:29
PROVIDERS: ADMIT Internal Medicine; ATTEND Internal Medicine
DX: K85.20 Alcohol induced acute pancreatitis without necrosis or infection (principal); R64 Cachexia; J44.9 Chronic obstructive pulmonary disease, unspecified; Z68.1 Body mass index [BMI] 19.9 or less, adult; I10 Essential (primary) hypertension; I25.10 Atherosclerotic heart disease of native coronary artery without angina pectoris; Z95.1 Presence of aortocoronary bypass graft; Z95.2 Presence of prosthetic heart valve; F10.20 Alcohol dependence, uncomplicated; F17.210 Nicotine dependence, cigarettes, uncomplicated; R19.7 Diarrhea, unspecified; F32.9 Major depressive disorder, single episode, unspecified; F41.9 Anxiety disorder, unspecified; D64.9 Anemia, unspecified; E78.5 Hyperlipidemia, unspecified; E46 Unspecified protein-calorie malnutrition
CPT/HCPCS: 36415; 71045-TC-FY; 74019-TC-FY; 74170-TC; 80048; 80053; 80307; 82150; 82550; 83690; 84484; 85025; 85027; 85610; 86850; 86900; 86901; 93005; 93010; 99284-25; J1644

== ENCOUNTER 2017-09-19 10:56 | Inpatient (IN) | payer OTHER ==
--- NOTE | 2017-09-19 12:06 | PDOC ---
History of Present Illness - General Chief Complaint: Tachycardia Stated Complaint: DIFFICULTY BREATHING Time Seen by Provider: 09/19/17 11:23 - History of Present Illness Initial Comments: 09/19/17 11:43 56 yo F with h/o HTN, CAD ( s/p CABG), MVR, chronic EtoH abuse who presents with tachycardia. Patient reports one week of night sweats, increased confusion , tremors, SOB, BL chest tightness, and fatigue following attempt at alcohol cessation. Chest pressure slightly improved and left sided with absent radiation. Reports Roque, and pleuritic chest pain. Also complains of visual hallucinations upon awakening. + chronic cough. 2 days of palpitations occurring intermittently, with no identifiable trigger or alleviators. Tobacco use 1/2 ppd 20 + years. Daily vodka use ( 1 pint per day) with last alcoholic beverage 7 days [employer]. Denies F/C, hemoptysis, wheezing, abdominal pain, diarrhea , constipation, lightheadedness, weakness, sensory changes, or convulsions. This AM patient went to outpt. rehab seeking medication treatment for withdrawal , but sent to ED d/t tachycardia ~120 on triage vitals. Currently not being treated for withdrawal. Denies recent travel or immobilization, h/o PE/DVT, hormone use, trauma or surgery within past 6 weeks, or h/o malignancy. Past History - Past Medical History Allergies/Adverse Reactions: Allergies Allergy/AdvReac Type Severity Reaction Status Date / Time No Known Allergies Allergy Verified 09/19/17 11:16 Home Medications: Ambulatory Orders Amlodipine Besylate [Norvasc -] 10 mg PO DAILY #30 tablet 12/02/16 Sertraline HCl [Zoloft -] 50 mg PO DAILY #30 tablet 12/05/16 Cyanocobalamin [Vitamin B12 -] 1,000 mcg PO DAILY 01/31/17 Ferrous Sulfate 325 mg PO DAILY 01/31/17 Doxylamine Succinate [Sleep Aid] 25 mg PO HS 02/07/17 Gabapentin [Neurontin -] 200 mg PO HS 07/24/17 Naproxen [Naprosyn -] 500 mg PO BID 07/24/17 Thiamine Mononitrate [Vitamin B-1] 100 mg PO DAILY 07/24/17 Anemia: No Asthma: No Cancer: No Cardiac Disorders: Yes (MITRAL VALVE REPAIR) CVA: No COPD: No CHF: No DVT: No Dementia: No Diabetes: No GI Disorders: No Disorders: No HTN: Yes Hypercholesterolemia: No Kidney Stones: No Liver Disease: No Psychiatric Problems: Yes (panic attacks) Seizures: Yes (RELATED TO BRAIN SURGERY) Thyroid Disease: No Other medical history: alcohol abuse - Surgical History Abdominal Surgery: No Appendectomy: No Cardiac Surgery: Yes (01/2012 annuloplasty ring, cabg) Cholecystectomy: No Lung Surgery: No Neurologic Surgery: No (BLEED S/P FALL) Orthopedic Surgery: No - Reproductive History PID: No - Immunization History Immunization Up to Date: Yes - Suicide/Smoking/Psychosocial Hx Smoking Status: Yes Smoking History: Current every day smoker Have you smoked in the past 12 months: Yes Number of Cigarettes Smoked Daily: 20 Cigars Per Day: 0 Information on smoking cessation initiated: Yes 'Breaking Loose' booklet given: 09/19/17 Hx Alcohol Use: Yes Drug/Substance Use Hx: No Substance Use Type: Alcohol Hx Substance Use Treatment: Yes (this is her first inpatient rehabilitation treatment) Cardiac Specific PMH - Complaint Specific PMHX Pacemaker: No Review of Systems - Review of Systems Comments:: 09/19/17 12:11 GENERAL/CONSTITUTIONAL: No fever or chills. No weakness. HEAD, EYES, EARS, NOSE AND THROAT: No change in vision. No ear pain or discharge. No sore throat. CARDIOVASCULAR: + chest pain and shortness of breath RESPIRATORY: + SOB. No cough, wheezing, or hemoptysis. GASTROINTESTINAL: No nausea, vomiting, diarrhea or constipation. GENITOURINARY: No dysuria, frequency, or change in urination. MUSCULOSKELETAL: No joint or muscle swelling or pain. No neck or back pain. SKIN: No rash NEUROLOGIC: + Tremors. No headache, vertigo, loss of consciousness, or change in strength/sensation. ENDOCRINE: No increased thirst. No abnormal weight change HEMATOLOGIC/LYMPHATIC: No anemia, easy bleeding, or history of blood clots. ALLERGIC/IMMUNOLOGIC: No hives or skin allergy. *Physical Exam - Vital Signs Last Vital Signs Temp Pulse Resp BP Pulse Ox 98.0 F 104 H 18 103/61 96 09/21/17 17:00 09/21/17 17:00 09/21/17 17:00 09/21/17 17:00 09/21/17 09:00 - Physical Exam Comments: 09/19/17 12:13 GENERAL: Awake, alert, and fully oriented, in no acute distress HEAD: No signs of trauma, normocephalic, atraumatic EYES: PERRLA, EOMI, sclera anicteric, conjunctiva clear ENT: Hearing grossly normal, nares patent, oropharynx clear without exudates. Moist mucosa NECK: Normal ROM, supple, no lymphadenopathy, JVD, or masses LUNGS: No distress, speaks full sentences, clear to auscultation bilaterally HEART: Regular rate and rhythm, normal S1 and S2, no murmurs, rubs or gallops, peripheral pulses normal and equal bilaterally. EXTREMITIES : Normal inspection, Normal range of motion, no edema. No clubbing or cyanosis. NEUROLOGICAL: +Tremors in distal UE. Cranial nerves II through XII grossly intact. Normal speech, normal gait, no focal sensorimotor deficits. SKIN: Warm, Dry, normal turgor, no rashes or lesions noted ED Treatment Course - LABORATORY CBC & Chemistry Diagram: 09/21/17 05:10 09/21/17 05:10 - ADDITIONAL ORDERS Additional order review: 09/19/17 12:45 Blood Culture - Preliminary Blood - Peripheral Venous NO GROWTH OBTAINED AFTER 48 HOURS, INCUBATION TO CONTINUE FOR 3 DAYS. 09/19/17 18:50 Urine Culture - Preliminary Urine - Urine - Catheterized Lactose Fermenting Neg Bacilli 09/19/17 13:32 Blood Culture - Preliminary Blood - Peripheral Venous Pending Organism 09/19/17 12:25 RBC 2.80 L MCV 93.4 MCHC 34.2 RDW 15.8 H MPV 10.7 D Neutrophils % No Result Required. Lymphocytes % No Result Required. - RADIOLOGY Radiology Studies Ordered: Category Date Time Status CXRPORT [CHEST X-RAY PORTABLE*] [RAD] Stat Radiology 09/19/17 12:06 Completed - Medications Given in the ED: ED Medications Discontinued Medications Generic Name Dose Route Start Last Admin Trade Name Freq PRN Reason Stop Dose Admin Amlodipine Besylate 10 mg 09/20/17 10:00 09/21/17 09:29 Norvasc - PO 10 mg DAILY DK Administration Chlordiazepoxide HCl 25 mg 09/20/17 01:00 09/20/17 21:26 Librium - PO Not Given [id number] Chlordiazepoxide HCl 50 mg 09/20/17 17:00 03/29/18 06:37 Librium - PO 09/21/17 11:01 Not Given [id number] Chlordiazepoxide HCl 25 mg 09/21/17 08:49 09/21/17 10:46 Librium - PO 09/21/17 11:01 25 mg [id number] [id number] Administration Folic Acid 1 mg 09/19/17 12:59 09/19/17 13:32 Folic Acid - PO 09/19/17 13:00 1 mg ONCE ONE Administration Sodium Chloride 1,000 mls @ 1,000 mls/hr 09/19/17 16:31 09/19/17 17:00 Normal Saline - IV 09/19/17 17:30 1,000 mls/hr ASDIR STA Administration Sodium Chloride 1,000 mls @ 1,000 mls/hr 09/19/17 16:32 09/19/17 19:01 Normal Saline - IV 09/19/17 17:31 1,000 mls/hr ASDIR STA Administration Ceftriaxone Sodium 1 gm/ 50 mls @ 100 mls/hr 09/19/17 19:49 09/19/17 19:37 Dextrose IVPB 09/19/17 20:18 100 mls/hr ONCE ONE Administration Lorazepam 1 mg 09/19/17 12:44 09/19/17 13:32 Ativan Injection - IVPUSH 09/19/17 12:45 1 mg ONCE ONE Administration Lorazepam 1 mg 09/19/17 18:57 09/19/17 19:36 Ativan Injection - IVPUSH 09/19/17 18:58 1 mg ONCE ONE Administration Potassium Chloride 40 meq 09/21/17 15:18 09/21/17 16:14 Potassium Chloride Oral Liquid PO 09/21/17 15:19 40 meq ONCE ONE Administration Sodium Chloride 2,000 ml 09/19/17 12:58 09/19/17 13:32 Normal Saline - IV 09/19/17 12:59 2,000 ml ONCE ONE Administration Thiamine HCl 200 mg 09/19/17 12:59 09/19/17 13:32 Vitamin B1 Injection - IVPB 09/19/17 13:00 200 mg ONCE ONE Administration Thiamine HCl 100 mg 09/20/17 10:00 09/20/17 10:15 Vitamin B1 - PO 100 mg DAILY DK Administration Medical Decision Making - Medical Decision Making 03/27/18 12:17 56 yo F with h/o HTN, CAD ( s/p CABG), MVR, chronic EtoH abuse who presents from outside rehab facility with HR~120 and multiple complaints including night sweats, increased confusion, tremors, SOB, BL chest tightness, tachycardia, and fatigue following attempt at alcohol cessation x1 week. Daily vodka use ( 1 pint per day) with last alcoholic beverage 7 days [employer]. Denies F/C, hemoptysis, wheezing, abdominal pain, diarrhea, constipation, lightheadedness, weakness, sensory changes, or convulsions. Physical exam noteable for tremors, and HR ~ 120, and low grade temp 99.2. Differential includes acute alcohol withdrawal, thyrotoxicosis, sepsis. Low risk PE based on Weils criteria. ED Course: CBC, CMP, Cardiac Pr, BNP, TSH, EKG, CXR Folic acid, Thiamine, NS 09/19/17 12:55 WBC: 13.4 09/19/17 12:56 CXR: Unremarkable 09/19/17 14:45 BNP: 4237 09/21/17 23:25 Pt. admitted to med/surg Dr. Colon with severe malnutrition. *DC/Admit/Observation/Transfer Diagnosis at time of Disposition: Pyelonephritis, Alcohol dependence with uncomplicated withdrawal - Discharge Dispostion Condition at time of disposition: Stable Admit: Yes - Referrals - Patient Instructions - Post Discharge Activity
--- NOTE | 2017-09-19 12:45 | PDOC ---
History of Present Illness - General History Source: Patient Exam Limitations: No Limitations - History of Present Illness Initial Comments: 09/19/17 12:57 The patient is a 56 year old female, with a significant past medical history of HTN, CAD ( s/p CABG), MVR, chronic EtoH abuse, who presents to the emergency department with tachycardia, following alcohol cessation. Patient reports having vodka use (1 pint per day) last beverage 7 days. She reports since having nauesa, retching, sweating, chills, tremors, and vomiting. She denies auditory and visual hallucinations. She does endorse feeling a little confused in addition to her other complaints. She denies recent fevers, chills, headache or dizziness. Allergies: NKA Past surgical history: None reported. Social history: See [facility] Primary Care Physician: <Willie Mustafa - Last Filed: 09/19/17 12:57> <Rony Duff - Last Filed: 09/23/17 21:42> - General Chief Complaint: Tachycardia Stated Complaint: DIFFICULTY BREATHING Time Seen by Provider: 09/19/17 11:23 Past History <Willie Mustafa - Last Filed: 09/19/17 12:57> - Past Medical History Anemia: No Asthma: No Cancer: No Cardiac Disorders: Yes (MITRAL VALVE REPAIR) CVA: No COPD: No CHF: No DVT: No Dementia: No Diabetes: No GI Disorders: No Disorders: No HTN: Yes Hypercholesterolemia: No Kidney Stones: No Liver Disease: No Psychiatric Problems: Yes (panic attacks) Seizures: Yes (RELATED TO BRAIN SURGERY) Thyroid Disease: No Other medical history: alcohol abuse - Surgical History Abdominal Surgery: No Appendectomy: No Cardiac Surgery: Yes (01/2012 annuloplasty ring, cabg) Cholecystectomy: No Lung Surgery: No Neurologic Surgery: No (BLEED S/P FALL) Orthopedic Surgery: No - Reproductive History PID: No - Immunization History Immunization Up to Date: Yes - Suicide/Smoking/Psychosocial Hx Smoking Status: Yes Smoking History: Current every day smoker Have you smoked in the past 12 months: Yes Number of Cigarettes Smoked Daily: 20 Cigars Per Day: 0 Information on smoking cessation initiated: Yes 'Breaking Loose' booklet given: 09/19/17 Hx Alcohol Use: Yes Drug/Substance Use Hx: No Substance Use Type: Alcohol Hx Substance Use Treatment: Yes (this is her first inpatient rehabilitation treatment) <Rony Duff - Last Filed: 09/23/17 21:42> - Past Medical History Allergies/Adverse Reactions: Allergies Allergy/AdvReac Type Severity Reaction Status Date / Time No Known Allergies Allergy Verified 09/19/17 11:16 Home Medications: Ambulatory Orders Amlodipine Besylate [Norvasc -] 10 mg PO DAILY #30 tablet 12/02/16 Sertraline HCl [Zoloft -] 50 mg PO DAILY #30 tablet 12/05/16 Cyanocobalamin [Vitamin B12 -] 1,000 mcg PO DAILY 01/31/17 Ferrous Sulfate 325 mg PO DAILY 01/31/17 Doxylamine Succinate [Sleep Aid] 25 mg PO HS 02/07/17 Gabapentin [Neurontin -] 200 mg PO HS 07/24/17 Naproxen [Naprosyn -] 500 mg PO BID 07/24/17 Thiamine Mononitrate [Vitamin B-1] 100 mg PO DAILY 07/24/17 Review of Systems - Review of Systems Able to Perform ROS?: Yes Comments:: 09/19/17 12:58 A complete review of 10 out of 10 review of systems is taken and is negative apart from what is previously mentioned below and in the HPI. <Willie Mustafa - Last Filed: 09/19/17 12:57> *Physical Exam - Vital Signs Last Vital Signs Temp Pulse Resp BP Pulse Ox 99.2 F 120 H 18 105/65 98 09/19/17 11:13 09/19/17 11:13 09/19/17 11:13 09/19/17 11:13 09/19/17 11:17 - Physical Exam Comments: 09/19/17 12:58 Vitals: Triage Vital signs reviewed General Appearance: no acute distress, well nourished well developed, Head: Atraumatic, normocephalic Throat: Posterior oropharynx without erythema, Tongue sigulation Neck: Supple;No Nuchal rigidity Chest Wall: Nontender Cardiac: Regular rate and rhythm, no murmurs, no rubs, no gallops, Lungs: Clear to auscultation bilateral, good air movement bilaterally, Abdomen: Soft, mild epigastric pain, normal bowel sounds. Rectal: Exam deferred Extremities: Full range of motion to all extremities, no cyanosis, clubbing, or edema Skin: Warm and dry, no rashes or lesions, no petechiae Neuro: AOX3; Cranial Nerves 2-12 grossly c intact, Strength intact to all extremities, Sensation intact to all extremities, gait normal Psych: normal mood, normal affect <Willie Mustafa - Last Filed: 09/19/17 12:57> - Vital Signs Last Vital Signs Temp Pulse Resp BP Pulse Ox 99.2 F 120 H 18 105/65 98 09/19/17 11:13 09/19/17 11:13 09/19/17 11:13 09/19/17 11:13 09/19/17 11:17 <Rony Duff - Last Filed: 09/23/17 21:42> ED Treatment Course - LABORATORY CBC & Chemistry Diagram: 09/19/17 12:25 09/19/17 12:25 - ADDITIONAL ORDERS Additional order review: 09/19/17 12:25 RBC 2.80 L MCV 93.4 MCHC 34.2 RDW 15.8 H MPV 10.7 D Neutrophils % No Result Required. Lymphocytes % No Result Required. <Willie Mustafa - Last Filed: 09/19/17 12:57> - LABORATORY CBC & Chemistry Diagram: 09/23/17 06:03 09/23/17 06:03 <Rony Duff - Last Filed: 09/23/17 21:42> Medical Decision Making - Medical Decision Making 09/19/17 12:57 The patient is a 56 year old female, with a significant past medical history of HTN, CAD ( s/p CABG), MVR, chronic EtoH abuse, who presents to the emergency department with tachycardia, following alcohol cessation. Patient reports having vodka use (1 pint per day) last beverage 7 days. Plan: 1. CBC (Cardiac profile) 2. Blood cultures 3. EKG 4. Obs Admit <Willie Mustafa - Last Filed: 09/19/17 12:57> - Medical Decision Making Patient remains tachycardic dyspneic we'll CT to rule out PE and other lung pathology given chest pain as well if negative patient can be admitted for withdrawal Dr. Shaw to f/u CTA reasses and dispo 7pm <Rony Duff - Last Filed: 09/23/17 21:42> *DC/Admit/Observation/Transfer <Willie Mustafa - Last Filed: 09/19/17 12:57> <Rony Duff - Last Filed: 09/23/17 21:42> Diagnosis at time of Disposition: Pyelonephritis, Alcohol dependence with uncomplicated withdrawal - Discharge Dispostion Condition at time of disposition: Stable
[2017-09-19 12:49] LABS: HEMATOCRIT 26.1 % (32.4-45.2); HEMOGLOBIN 8.9 GM/dL (10.7-15.3); MCH 31.9 pg (25.7-33.7); MCHC 34.2 g/dl (32.0-36.0); MEAN CELL VOLUME 93.4 fl (80-96); MEAN PLT VOLUME 10.7 fl (7.5-11.1); PLATELET COUNT 185 K/MM3 (134-434); RDW 15.8 % (11.6-15.6); WHITE BLOOD COUNT 13.4 K/mm3 (4.0-10.0)
[2017-09-19] MEDS ORDERED: SODIUM CHLORIDE 0.9% 1000 ML INFUS.BAG IV ONE (12:58)
[2017-09-19] MEDS ORDERED: THIAMINE HCL 200 MG/2 ML VIAL IVPB ONE (12:59)
[2017-09-19] MEDS ORDERED: FOLIC ACID 1 MG TABLET (FP) PO ONE (12:59)
[2017-09-19] MEDS ORDERED: THIAMINE HCL 200 MG/2 ML VIAL ONE (13:10)
[2017-09-19] MEDS ORDERED: LORazepam 2 MG/ML SDV VIAL ONE (13:10)
[2017-09-19] MEDS ORDERED: FOLIC ACID 1 MG TABLET (FP) ONE (13:10)
[2017-09-19 13:12] LABS: INR 1.2 (0.82-1.09); PROTHROMBIN TIME (PATIENT) 13.6 SEC (9.98-11.88)
[2017-09-19 13:13] LABS: ALBUMIN 2.6 g/dl (3.4-5.0); ANION GAP 8 (8-16); BLOOD UREA NITROGEN 24 mg/dL (7-18); CALCIUM 8.2 mg/dL (8.5-10.1); CHLORIDE 97 mmol/L (98-107); CO2 24 mmol/L (21-32); CREATININE 1.4 mg/dL (0.55-1.02); GLUCOSE,RANDOM 129 mg/dL (74-106); SGPT/ALT 9 U/L (12-78); SODIUM 129 mmol/L (136-145)
[2017-09-19 13:14] LABS: ALK PHOS 188 U/L (45-117); BILIRUBIN,TOTAL 0.6 mg/dL (0.2-1.0); TOT PROT 6.4 g/dl (6.4-8.2)
[2017-09-19 13:21] LABS: POTASSIUM 3.9 mmol/L (3.5-5.1); SGOT/AST 18 U/L (15-37)
[2017-09-19 13:23] LABS: N-TERMINAL BNP 4237.14 pg/ml (5-125)
[2017-09-19 13:32] LABS: PLATELET ESTIMATE ADEQUATE
[2017-09-19] MEDS ORDERED: SODIUM CHLORIDE 1,000 ML IV STA ×2 (16:31→16:32)
--- NOTE | 2017-09-19 16:54 | EKG ---
Test Reason : Blood Pressure : / mmHG Vent. Rate : 116 BPM Atrial Rate : 116 BPM P-R Int : 124 ms QRS Dur : 082 ms QT Int : 312 ms P-R-T Axes : 053 038 074 degrees QTc Int : 433 ms SINUS TACHYCARDIA POSSIBLE LEFT ATRIAL ENLARGEMENT BORDERLINE ECG WHEN COMPARED WITH ECG OF 24-JUL-2017 23:17, VENT. RATE HAS INCREASED BY 39 BPM Confirmed by MD Bella, Po ([id number]) on 09/19/2017 4:54:36 PM Referred By: Confirmed By:Po Blanco MD
[2017-09-19 18:58] LABS: URINE APPEARANCE CLOUDY; URINE BILIRUBIN NEGATIVE (<2.0 mg/dL); URINE BLOOD 2+ (NEGATIVE); URINE COLOR YELLOW; URINE GLUCOSE (UA) NEGATIVE (NEGATIVE); URINE KETONE NEGATIVE (NEGATIVE); URINE NITRITE POSITIVE (NEGATIVE); URINE UROBILINOGEN NEGATIVE mg/dL (0.2-1.0)
[2017-09-19 19:01] LABS: URINE LEUK ESTERASE 3+ (NEGATIVE); URINE PROTEIN 2+ (NEGATIVE)
[2017-09-19 19:02] LABS: EPI CELLS RARE /HPF (FEW); URINE BACTERIA RARE /hpf (NONE SEEN); URINE MUCUS RARE
[2017-09-19] MEDS ORDERED: CEFTRIAXONE 1 GM in DEXTROSE 5%-WATER - 50 ML IVPB ONE (19:49)
--- NOTE | 2017-09-19 19:51 | PDOC ---
*Physical Exam - Vital Signs Last Vital Signs Temp Pulse Resp BP Pulse Ox 98.7 F 118 H 18 116/56 98 09/19/17 16:38 09/19/17 16:38 09/19/17 16:38 09/19/17 16:38 09/19/17 16:38 ED Treatment Course - LABORATORY CBC & Chemistry Diagram: 09/19/17 12:25 09/19/17 12:25 - ADDITIONAL ORDERS Additional order review: Laboratory Results 09/19/17 09/19/17 09/19/17 18:50 12:45 12:45 PT with INR INR Sodium Potassium Chloride Carbon Dioxide Anion Gap BUN Creatinine Creat Clearance w eGFR Random Glucose Lactic Acid 1.0 Calcium Total Bilirubin AST ALT Alkaline Phosphatase Creatine Kinase Troponin I B-Natriuretic Peptide Total Protein Albumin Lipase 59 L Urine Color Yellow Urine Appearance Cloudy Urine pH 6.0 Ur Specific Solomon 1.012 Urine Protein 2+ H Urine Glucose (UA) Negative Urine Ketones Negative Urine Blood 2+ H Urine Nitrite Positive Urine Bilirubin Negative Urine Urobilinogen Negative Ur Leukocyte Esterase 3+ H D Urine WBC (Auto) 102 Urine RBC (Auto) 4 Ur Epithelial Cells Rare Urine Bacteria Rare Urine Mucus Rare 09/19/17 09/19/17 09/19/17 12:25 12:25 12:25 PT with INR 13.60 H INR 1.20 H Sodium 129 L Potassium 3.9 Chloride 97 L Carbon Dioxide 24 Anion Gap 8 BUN 24 H Creatinine 1.4 H Creat Clearance w eGFR 39.04 Random Glucose 129 H Lactic Acid Calcium 8.2 L Total Bilirubin 0.6 D AST 18 ALT 9 L Alkaline Phosphatase 188 H Creatine Kinase 44 Troponin I < 0.02 B-Natriuretic Peptide 4237.14 H Total Protein 6.4 Albumin 2.6 L Lipase Urine Color Urine Appearance Urine pH Ur Specific Solomon Urine Protein Urine Glucose (UA) Urine Ketones Urine Blood Urine Nitrite Urine Bilirubin Urine Urobilinogen Ur Leukocyte Esterase Urine WBC (Auto) Urine RBC (Auto) Ur Epithelial Cells Urine Bacteria Urine Mucus 09/19/17 12:25 RBC 2.80 L MCV 93.4 MCHC 34.2 RDW 15.8 H MPV 10.7 D Neutrophils % No Result Required. Lymphocytes % No Result Required. - Medications Given in the ED: ED Medications Discontinued Medications Generic Name Dose Route Start Last Admin Trade Name Freq PRN Reason Stop Dose Admin Folic Acid 1 mg 09/19/17 12:59 09/19/17 13:32 Folic Acid - PO 09/19/17 13:00 1 mg ONCE ONE Administration Sodium Chloride 1,000 mls @ 1,000 mls/hr 09/19/17 16:31 09/19/17 17:00 Normal Saline - IV 09/19/17 17:30 1,000 mls/hr ASDIR STA Administration Sodium Chloride 1,000 mls @ 1,000 mls/hr 09/19/17 16:32 09/19/17 19:01 Normal Saline - IV 09/19/17 17:31 1,000 mls/hr ASDIR STA Administration Lorazepam 1 mg 09/19/17 12:44 09/19/17 13:32 Ativan Injection - IVPUSH 09/19/17 12:45 1 mg ONCE ONE Administration Sodium Chloride 2,000 ml 09/19/17 12:58 09/19/17 13:32 Normal Saline - IV 09/19/17 12:59 2,000 ml ONCE ONE Administration Thiamine HCl 200 mg 09/19/17 12:59 09/19/17 13:32 Vitamin B1 Injection - IVPB 09/19/17 13:00 200 mg ONCE ONE Administration Medical Decision Making - Medical Decision Making 09/19/17 21:[address] Jesus. Patient is 56F with extensive medical history including alcoholism here today with tachycardia. Broad differential, CTA chest and CT abdomen pending. CT revealed perinephric fat stranding. UA positive for UTI. UC sent. Started on ceftriaxone. Admitted to Dr Colon. *DC/Admit/Observation/Transfer Diagnosis at time of Disposition: Pyelonephritis, Alcohol dependence with uncomplicated withdrawal - Discharge Dispostion Condition at time of disposition: Stable Admit: Yes - Referrals Referrals: Kenneth Alvarez MD [Primary Care Provider] - - Patient Instructions - Post Discharge Activity
[2017-09-20] MEDS: chlordiazePOXIDE HCL 25 MG CAPSULE PO SCH ×5 (01:50→21:26)
[2017-09-20] MEDS ORDERED: chlordiazePOXIDE HCL 25 MG CAPSULE ONE ×4 (01:53→18:46)
[2017-09-20 07:57] LABS: BASO % 0.5 % (0-2.0); EOS % 0.9 % (0-4.5); HEMATOCRIT 27.5 % (32.4-45.2); HEMOGLOBIN 9.4 GM/dL (10.7-15.3); LYMPH % 5.6 % (8-40); MCH 31.9 pg (25.7-33.7); MEAN CELL VOLUME 93.8 fl (80-96); MEAN PLT VOLUME 10.5 fl (7.5-11.1); MONO % 9.7 % (3.8-10.2); NEUT % 83.3 % (42.8-82.8); PLATELET COUNT 189 K/MM3 (134-434); RBC 2.93 M/mm3 (3.60-5.2); RDW 16.2 % (11.6-15.6); WHITE BLOOD COUNT 12.6 K/mm3 (4.0-10.0)
[2017-09-20 08:17] LABS: CHLORIDE 106 mmol/L (98-107); POTASSIUM 3.3 mmol/L (3.5-5.1); SODIUM 136 mmol/L (136-145)
[2017-09-20 08:26] LABS: ALBUMIN 2.1 g/dl (3.4-5.0); ALK PHOS 175 U/L (45-117); ANION GAP 10 (8-16); BILIRUBIN,TOTAL 0.5 mg/dL (0.2-1.0); BLOOD UREA NITROGEN 22 mg/dL (7-18); CALCIUM 7.8 mg/dL (8.5-10.1); CO2 20 mmol/L (21-32); CREATININE 1.2 mg/dL (0.55-1.02); GLUCOSE,RANDOM 81 mg/dL (74-106); SGOT/AST 10 U/L (15-37); SGPT/ALT 7 U/L (12-78); TOT PROT 5.5 g/dl (6.4-8.2)
--- NOTE | 2017-09-20 08:31 | CON.CARD ---
Cardiology Consult (text) - Consultation Consultation Note: Cardiology Consult Dictated IMP: Sinus tachycardia in setting of abrupt cessation of chronic heavy ETOH Probable ETOH withdrawal History of MV fibroelastoma s/p resection ([place]) Hyponatremia Suspected mild acute on chronic diastolic CHF, possibly triggered by tachycardia Low grade fever- possibly related to withdrawal, r/o underlying infection REC: 1. Echo 2. Would like to begin gentle diuresis, will obtain renal opinion re. hyponatremia 3. Fever work up 4. Management of withdrawal as per PMD and Addiction medicine Thank you
--- NOTE | 2017-09-20 09:06 | CONS ---
DATE OF CONSULTATION: DATE OF DICTATION: 09/20/2017 CONSULTATION REQUESTED BY: Aniyah Colon MD REASON FOR CONSULTATION: The consultation is requested for evaluation of sinus tachycardia. HISTORY OF PRESENT ILLNESS: The patient is a 56-year-old female with a past medical history of a mitral valve fibroelastoma status post resection at [facility] approximately 7 years ago, chronic alcoholism, chronic hypertension, history of pancreatitis, history of intracranial hemorrhage several years ago, details currently unclear. She presents to the emergency room with a constellation of complaints including approximately 1 week of tremors in the setting of abrupt cessation of chronic heavy alcohol use. She also described pleuritic chest pain which prompted a CTA of the chest which was negative for pulmonary embolism. In the emergency department, she has been noted to have mild sinus tachycardia for which I was consulted. Labs have revealed a mildly elevated white blood cell count, hyponatremia with a sodium of 129, and an elevated BNP of 4237. The CTA of the chest, although negative for PE, showed possible increased pulmonary vascular congestion. On my review of systems, she describes tremors, chronic low backache, subjective fevers, generalized body aches including substernal chest discomfort which is very positional in nature, worse with moving, worse with bending. She had 1 episode of nausea, but no increased shortness of breath. She denies palpitations, PND, orthopnea, edema, or syncope. PAST MEDICAL HISTORY: Her past medical history is as outlined above. ALLERGIES: She has no known drug allergies. MEDICATIONS: Her home medications include thiamine, Zoloft 50 mg daily, Naprosyn p.r.n., Neurontin 200 mg at bedtime, iron sulfate supplementation, vitamin B12, and amlodipine 10 mg daily. FAMILY HISTORY: Noncontributory to this presentation. SOCIAL HISTORY: She drinks 1 pint of alcohol per day. She smokes 1/2 a pack of cigarettes per day. She denies illicit drug use. PHYSICAL EXAMINATION: Vital Signs: T-max of 99.6. Blood pressure 113/65. Pulse oximetry is 98% on room air. HEENT: She is anicteric. Neck: No carotid bruits or JVD. Heart: S1, S2, regular, tachycardic. No murmurs. Chest: Clear anterior and laterally. No active wheezing. Abdomen: Soft, nontender. No rebound or guarding. Extremities: No significant pitting edema. EKG showed sinus tachycardia at 115 beats per minute. LABORATORY: White count 12.6, hematocrit 27.5, platelet count 189. INR 1.2. Sodium 129, potassium 3.9, BUN 24, creatinine 1.4. AST and ALT were within normal limits. CK and troponin are negative x1 set, second set pending. Lipase was 59. BNP 4237. CTA of the chest as described above. Negative for pulmonary embolism, possible increased pulmonary vascular congestion. IMPRESSION: 1. Sinus tachycardia in the setting of abrupt cessation of chronic heavy alcohol use. 2. Probable alcohol withdrawal. 3. History of mitral valve fibroelastoma status post resection. 4. Hyponatremia. 5. Suspected mild acute on chronic diastolic congestive heart failure, possibly triggered by tachycardia or underlying infection. 6. Low-grade fever. Could be related to either alcohol withdrawal or underlying infection. RECOMMENDATIONS: 1. Echocardiogram to assess left ventricular systolic function, rule out pericardial effusion, and to assess previous mitral valve repair. 2. Would like to begin a trial of gentle diuresis. Will obtain a Renal opinion regarding this and her hyponatremia. 3. Fever workup, cultures pending. 4. Management of withdrawal as per PMD and addiction medicine. Thank you for the consultation. RAMONE BROWN M.D. [id number]
[2017-09-20] MEDS ORDERED: THIAMINE HCL 100 MG TABLET (FP) PO SCH (10:00)
[2017-09-20] MEDS: FOLIC ACID 1 MG TABLET (FP) PO SCH (10:14)
[2017-09-20] MEDS: HEPARIN NA (PORCINE) 5,000 UNITS/ML 1ML VIAL SQ SCH (10:14)
[2017-09-20] MEDS: FERROUS SO4 325 MG TABLET (FP) PO SCH (10:14)
[2017-09-20] MEDS: amLODIPine BESYLATE 10 MG TABLET (FP) PO SCH (10:15)
[2017-09-20] MEDS: SERTRALINE HCL 50 MG TABLET (FP) PO SCH (10:15)
[2017-09-20] MEDS: CYANOCOBALAMIN 1,000 MCG TABLET (FP) PO SCH (10:15)
--- NOTE | 2017-09-20 10:46 | CONSULT ---
Consult Detox [facility] Reason for Current Admission/Consult: substance use Referred by:: Vimal Colon - History History of Present Illness: 56 yo F w chronic alcohol use disorder severe, stopped drinking adn developed alcohol withdrawal sx and started on libirum detox on admission which she is tolerating well although somewhat sedated. PMHX h/o HTN, CAD ( s/p CABG), MVR, still presenting with tachycardia. Patient reports one week of night sweats, increased confusion, tremors, SOB, BL chest tightness, and fatigue following attempt at alcohol cessation. complains of visual hallucinations upon awakening. + chronic cough. 2 days of palpitations occurring intermittently, with no identifiable trigger or alleviators. Tobacco use 1/2 ppd 20 + years. Daily vodka use ( 1 pint perday) with last alcoholic beverage 7 days [employer]. - History Source History Provided By: Patient, Medical Record, Caregiver Limitations to Obtaining History: Clinical Condition - Alcohol/Substance Use Hx Alcohol Use: Yes Hx Substance Use: No Hx Substance Use Treatment: Yes ([facility]) - Current Drug/Alcohol Use Alcohol Route: Oral Frequency: Daily Amount used: 1 [int vodka Age of first use: 16 Date of Last Use: 09/14/17 - Past Medical History NURSING SPECIALIST: Yes: Seizure, Other (SDH) Cardio/Vascular: Yes: HTN, Hyperlipdemia Pulmonary: Yes: COPD Gastrointestinal: Yes: Pancreatitis ...LMP: 08/19/06 Psych: Yes: Addictions, Anxiety, Depression, Other (ETOH abuse) - Past Surgical History Past Surgical History: Yes: None (Craniotomy) - Significant Medical Findings: 56 yo f admitted with alcohol withdrawl sx, now sedated on liirum, anemia, tachycardic, elevated wbc, severely hypokalemic despite supplementation. Reproted hallucinations in past CIWA Score - CIWA Score Nausea/Vomitin-Mild Nausea/No Vomiting Muscle Tremors: 1-None Visible, but Rowe Anxiety: 1-Mildly Anxious Agitation: 1-Slight > Activity Paroxysmal Sweats: 1-Minimal Palms Moist Orientation: 1-Uncertain about Date Tacttile Disturbances: 1-Very Mild Itch/Numbness Auditory Disturbances: 0-None Visual Disturbances: 0-None Headache: 1-Very Mild CIWA-Ar Total Score: 8 Assessment Plan - Diagnosis (1) Alcohol dependence with uncomplicated withdrawal Status: Chronic (2) Nicotine dependence Status: Chronic Qualifiers: Nicotine product type: cigarettes Substance use status: uncomplicated Qualified Code(s): F17.210 - Nicotine dependence, cigarettes, uncomplicated (3) Substance induced mood disorder Status: Chronic (4) Weight loss Status: Chronic (5) Cachexia Status: Acute (6) Hypokalemia Status: Acute (7) Malnutrition Status: Acute (8) Anemia Status: Acute - Plan Plan: chat, labs, imaging reviewed. Pateitn examined and hsitory taken. care discussed with medical team. Recommend: 1. fluids, vitamin, libirum deto xas ordered, sedation is apporpriaate for the older women with medial illness. 2. anemai work up hypokalemia - supplement aggreessivelsy as this will help her with her weakness 3. severe malnutirtion - 2/2 alcohol use, dieaty consult, ensu ordered, vitamins. 4. when medically stable consider transfer to inpatient rehab. [facility] before weekend. Jurgen Wild MD [phone] - Medication Detox Regimen/Protocol: Librium
--- NOTE | 2017-09-20 11:51 | CONSULT ---
Consult - text type - Consultation Consultation Note: Renal Consult for DANIS and hyponatremia This is a 56 year old woman with PMhx of Hypertension, CAD s/p CABG, MVR, Chronic ETOH abuse who was sent from outpatient rehab with tachycardia and found to have BUN/Cr of 24/1.4 and Na of 129. Pt reports that her last drink was 7-10 days ago. + N/V at home. Poor oral intake. Denies any NSAID use. No flank pain, hematuria, dysuria. No rash. Pt was given some sedation in the ED and is very groggy. PMhx: as above Allergies: NKDA Family Hx: NC Social Hx: + EOTH use, Current smoker ROs: As per HPI Home Medications Medication Instructions Recorded Amlodipine Besylate [Norvasc -] 10 mg PO DAILY #30 tablet 12/02/16 Sertraline HCl [Zoloft -] 50 mg PO DAILY #30 tablet 12/05/16 Cyanocobalamin [Vitamin B12 -] 1,000 mcg PO DAILY 01/31/17 Ferrous Sulfate 325 mg PO DAILY 01/31/17 Doxylamine Succinate [Sleep Aid] 25 mg PO HS 02/07/17 Gabapentin [Neurontin -] 200 mg PO HS 07/24/17 Naproxen [Naprosyn -] 500 mg PO BID 07/24/17 Thiamine Mononitrate [Vitamin B-1] 100 mg PO DAILY 07/24/17 Vital Signs Temperature 98.9 F 09/20/17 07:02 Pulse Rate 110 H 09/20/17 10:16 Respiratory Rate 16 09/20/17 10:16 Blood Pressure 112/71 09/20/17 10:16 O2 Sat by Pulse Oximetry (%) 98 09/20/17 10:16 Intake & Output 09/17/17 09/18/17 09/19/17 09/20/17 23:59 23:59 23:59 23:59 Weight 50.802 kg NAD, Groggy MMM, No JVD, Neck supple tachycardic, no M/R CTA soft NT/ND NO LE edmea no bladder distension CBC, BMP 09/20/17 06:30 09/20/17 06:30 Laboratory Tests 09/19/17 09/20/17 09/20/17 18:50 06:30 06:30 WBC 12.6 H Neutrophils % 83.3 H D Calcium 7.8 L Albumin 2.1 L Urine Protein 2+ H Urine Blood 2+ H Ur Leukocyte Esterase 3+ H D Urine WBC (Auto) 102 Current Medications Amlodipine Besylate (Norvasc -) 10 mg PO DAILY [facility] Last Admin: 09/20/17 10:15 Dose: 10 mg Chlordiazepoxide HCl (Librium -) 25 mg PO [id number] [facility] Last Admin: 09/20/17 05:34 Dose: 25 mg Cyanocobalamin (Vitamin B12 -) 1,000 mcg PO DAILY [facility] Last Admin: 09/20/17 10:15 Dose: 1,000 mcg Ferrous Sulfate (Feosol -) 325 mg PO DAILY [facility] Last Admin: 09/20/17 10:14 Dose: 325 mg Folic Acid (Folic Acid -) 1 mg PO DAILY [facility] Last Admin: 09/20/17 10:14 Dose: 1 mg Gabapentin (Neurontin -) 200 mg PO [facility] Heparin Sodium (Porcine) (Heparin -) 5,000 unit SQ BID [facility] Last Admin: 09/20/17 10:14 Dose: 5,000 unit Multivit/Folic Acid/Iron ( Vitamins (Sjr) -) 1 tab PO DAILY [facility] Sertraline HCl (Zoloft -) 50 mg PO DAILY [facility] Last Admin: 09/20/17 10:15 Dose: 50 mg Thiamine HCl (Vitamin B1 -) 100 mg PO [facility] 56 year old woman with PMhx of Hypertension, CAD s/p CABG, MVR, Chronic ETOH abuse who was sent from outpatient rehab with tachycardia and found to have BUN/ Cr of 24/1.4 and Na of 129. #DANIS (baseline Cr 0.6) likely secondary to volume depletion but now pt with contrast exposure #Hyponatremia #Mild pulmonary congestion on imaging #Tachycardia #Metabolic acidosis (non-anion gap) #ETOH abuse/withdrawal #Hypokalemia #Adrenal Lesion #Suspected Pylonephritis Will discuss with cardiology if it is ok to give IVF given suspsion for some degree of HF Pt with DANIS, improved with IVF in the ED Hyponatremia also improved with IVF pt with contrast exposure and would benefit from isotonic saline trend BUN/Cr and electrolytes Dose all meds for CrCl less then 45 Trend serum bicarb, if less then 20 will need to start bicarb Trend BMP Q12h Continue management per [facility] CTA showed no PE Check Blood and urine cultures s/p ceftriaxone yesterday, continue daily for now can check repeat imaging of adrenals once renal function improves Thank you August Lowery DO
[2017-09-20] MEDS: CEFTRIAXONE 1 GM in DEXTROSE 5%-WATER - 50 ML IVPB SCH (13:26)
[2017-09-20] MEDS: SODIUM CHLORIDE 1,000 ML IV SCH (13:26)
--- NOTE | 2017-09-20 14:17 | HP ---
Admitting History and Physical - Admission History of Present Illness: Pt is a 56 y/o female w/ PMH significant for HTN, HLD, CAD ( s/p CABG), MVR, SDH , chronic EtoH abuse,COPD,seizure dz, pancreatitis and anemia who presents with tachycardia. Patient reports one week of night sweats, increased confusion, tremors, SOB, BL chest tightness, and fatigue following attempt at alcohol cessation. Chest pressure slightly improved and left sided with absent radiation. Also complains of visual hallucinations upon awakening. + chronic cough. 2 days of palpitations occurring intermittently, with no identifiable trigger or alleviators. 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: Seizure, Other (SDH) Cardiovascular: Yes: HTN, Hyperlipdemia Pulmonary: Yes: COPD Gastrointestinal: Yes: Pancreatitis ...LMP: 08/19/06 Heme/Onc: Yes: Anemia Psych: Yes: Addictions, Anxiety, Depression, Other (ETOH abuse) - Past Surgical History Past Surgical History: Yes: None (Craniotomy) - Smoking History Smoking history: Current every day smoker Have you smoked in the past 12 months: Yes Aproximately how many cigarettes per day: 20 - Alcohol/Substance Use Hx Alcohol Use: Yes - Social History ADL: Independent History of Recent Travel: No Home Medications - Allergies Allergies/Adverse Reactions: Allergies Allergy/AdvReac Type Severity Reaction Status Date / Time No Known Allergies Allergy Verified 09/19/17 11:16 - Home Medications Home Medications: Ambulatory Orders Amlodipine Besylate [Norvasc -] 10 mg PO DAILY #30 tablet 12/02/16 Sertraline HCl [Zoloft -] 50 mg PO DAILY #30 tablet 12/05/16 Cyanocobalamin [Vitamin B12 -] 1,000 mcg PO DAILY 01/31/17 Ferrous Sulfate 325 mg PO DAILY 01/31/17 Doxylamine Succinate [Sleep Aid] 25 mg PO HS 02/07/17 Gabapentin [Neurontin -] 200 mg PO HS 07/24/17 Naproxen [Naprosyn -] 500 mg PO BID 07/24/17 Thiamine Mononitrate [Vitamin B-1] 100 mg PO DAILY 07/24/17 Family Disease History - Family Disease History Family History: Unremarkable Family Disease History: Diabetes: Father, Mother, Brother Review of Systems - Review of Systems Constitutional: reports: Weakness Eyes: reports: No Symptoms HENT: reports: No Symptoms Neck: reports: No Symptoms Cardiovascular: reports: Chest Pain, Palpitations, Shortness of Breath Respiratory: reports: Cough, SOB Gastrointestinal: reports: Nausea Genitourinary: reports: No Symptoms Musculoskeletal: reports: Other (Tremors) Physical Examination Vital Signs: Vital Signs Temperature 98.9 F 09/20/17 07:02 Pulse Rate 118 H 09/20/17 13:30 Respiratory Rate 18 09/20/17 13:30 Blood Pressure 116/70 09/20/17 13:30 O2 Sat by Pulse Oximetry (%) 98 09/20/17 13:30 Constitutional: Yes: Cachectic Eyes: Yes: WNL HENT: Yes: WNL Neck: Yes: WNL, Supple Cardiovascular: Yes: Tachycardia Respiratory: Yes: WNL, Regular, CTA Bilaterally Gastrointestinal: Yes: WNL, Normal Bowel Sounds, Soft Edema: No Neurological: Yes: WNL, Alert, Oriented ...Motor Strength: WNL Labs: CBC, BMP 09/20/17 06:30 09/20/17 06:30 Problem List - Problems (1) Tachycardia Assessment/Plan: Cardio consult Monitor on tele Multifactorial Due to etoh withdrawal Code(s): R00.0 - TACHYCARDIA, UNSPECIFIED (2) Alcohol withdrawal Assessment/Plan: Cont was detoxed w/ librium Cont thiamine/folic acid Code(s): F10.239 - ALCOHOL DEPENDENCE WITH WITHDRAWAL, UNSPECIFIED (3) Anemia Assessment/Plan: Due to chronic dz Monitor H/H Code(s): D64.9 - ANEMIA, UNSPECIFIED (4) CAD (coronary artery disease) Code(s): I25.10 - ATHSCL HEART DISEASE OF [place] CORONARY ARTERY W/O ANG PCTRS (5) COPD (chronic obstructive pulmonary disease) Code(s): J44.9 - CHRONIC OBSTRUCTIVE PULMONARY DISEASE, UNSPECIFIED (6) HLD (hyperlipidemia) Code(s): E78.5 - HYPERLIPIDEMIA, UNSPECIFIED Qualifiers: Hyperlipidemia type: pure hypercholesterolemia Qualified Code(s): E78.00 - Pure hypercholesterolemia, unspecified; E78.0 - Pure hypercholesterolemia (7) HTN (hypertension) Code(s): I10 - ESSENTIAL (PRIMARY) HYPERTENSION Qualifiers: Hypertension type: essential hypertension Qualified Code(s): I10 - Essential (primary) hypertension (8) Acute on chronic diastolic (congestive) heart failure Code(s): I50.33 - ACUTE ON CHRONIC DIASTOLIC (CONGESTIVE) HEART FAILURE (9) Anxiety and depression Assessment/Plan: Cont zoloft Code(s): F41.9 - ANXIETY DISORDER, UNSPECIFIED; F32.9 - MAJOR DEPRESSIVE DISORDER, SINGLE EPISODE, UNSPECIFIED (10) Hx of CABG Code(s): Z95.1 - PRESENCE OF AORTOCORONARY BYPASS GRAFT
[2017-09-20 17:09] LABS: ANION GAP 14 (8-16); BLOOD UREA NITROGEN 25 mg/dL (7-18); CHLORIDE 104 mmol/L (98-107); CO2 19 mmol/L (21-32); CREATININE 1.3 mg/dL (0.55-1.02); GLUCOSE,RANDOM 133 mg/dL (74-106); POTASSIUM 3.1 mmol/L (3.5-5.1); SODIUM 137 mmol/L (136-145)
[2017-09-20] MEDS ORDERED: chlordiazePOXIDE HCL 25 MG CAPSULE PO ONE (17:59)
[2017-09-20] MEDS ORDERED: chlordiazePOXIDE HCL 25 MG CAPSULE PO PRN (17:59)
[2017-09-21] MEDS: chlordiazePOXIDE HCL 25 MG CAPSULE PO SCH ×2 (00:04→06:37)
[2017-09-21] MEDS: GABAPENTIN 100 MG CAPSULE (FP) PO SCH ×2 (00:04→22:20)
[2017-09-21] MEDS: HEPARIN NA (PORCINE) 5,000 UNITS/ML 1ML VIAL SQ SCH ×3 (00:04→22:19)
[2017-09-21] MEDS ORDERED: ACETAMINOPHEN 325 MG TABLET (FP) ONE (00:05)
[2017-09-21 01:12] LABS: COCAINE, UR NEGATIVE ng/ml (CUTOFF=300); METHADONE, UR NEGATIVE ng/ml (CUTOFF=300); OPIATES, URI NEGATIVE ng/ml (CUTOFF=300); PHENCYCLIDINE,URINE NEGATIVE ng/ml (CUTOFF=25); URINE AMPHETAMINES NEGATIVE ng/ml (CUTOFF=500); URINE BARBITURATES NEGATIVE ng/ml (CUTOFF=200)
[2017-09-21 01:13] LABS: URINE BENZODIAZEPINES POSITIVE ng/ml (CUTOFF=200)
[2017-09-21 04:13] VITALS: BMI 17.7
[2017-09-21 06:43] LABS: BASO % 0.4 % (0-2.0); HEMATOCRIT 22.3 % (32.4-45.2); HEMOGLOBIN 7.9 GM/dL (10.7-15.3); LYMPH % 5.8 % (8-40); MCH 33.1 pg (25.7-33.7); MCHC 35.3 g/dl (32.0-36.0); MEAN CELL VOLUME 93.7 fl (80-96); MEAN PLT VOLUME 9.8 fl (7.5-11.1); MONO % 11.7 % (3.8-10.2); NEUT % 81.1 % (42.8-82.8); PLATELET COUNT 232 K/MM3 (134-434); RBC 2.38 M/mm3 (3.60-5.2); RDW 15.8 % (11.6-15.6); WHITE BLOOD COUNT 12.5 K/mm3 (4.0-10.0)
[2017-09-21 06:46] LABS: ALBUMIN 1.9 g/dl (3.4-5.0); BLOOD UREA NITROGEN 23 mg/dL (7-18); CHLORIDE 111 mmol/L (98-107); GLUCOSE,RANDOM 69 mg/dL (74-106); PHOSPHOROUS 3.5 mg/dL (2.5-4.9); SGOT/AST 9 U/L (15-37); SODIUM 139 mmol/L (136-145)
[2017-09-21 06:48] LABS: ALK PHOS 167 U/L (45-117); ANION GAP 9 (8-16); BILIRUBIN,TOTAL 0.4 mg/dL (0.2-1.0); CALCIUM 7.4 mg/dL (8.5-10.1); CO2 19 mmol/L (21-32); CREATININE 1.1 mg/dL (0.55-1.02); MAGNESIUM 1.6 mg/dL (1.8-2.4); SGPT/ALT < 6 U/L (12-78); TOT PROT 5.1 g/dl (6.4-8.2)
[2017-09-21] MEDS ORDERED: ZOLPIDEM TARTRATE 5 MG TABLET PO PRN (08:49)
[2017-09-21] MEDS ORDERED: chlordiazePOXIDE HCL 25 MG CAPSULE PO SCH ×2 (08:49→17:00)
--- NOTE | 2017-09-21 08:49 | PN ---
Progress Note, Physician Chief Complaint: feeling slightly improved Echo with normal LB fxn, calcified MV with no gradient obtained but suspicion for possible MS - Current Medication List Current Medications: Active Medications Amlodipine Besylate (Norvasc -) 10 mg PO DAILY [facility] Last Admin: 09/20/17 10:15 Dose: 10 mg Chlordiazepoxide HCl (Librium -) 50 mg PO [id number] [facility] Stop: 09/21/17 11:01 Last Admin: 09/21/17 06:37 Dose: Not Given Chlordiazepoxide HCl (Librium -) 25 mg PO [id number] [facility] Stop: 09/22/17 11:01 Chlordiazepoxide HCl (Librium -) 15 mg PO [id number] [facility] Stop: 09/23/17 11:01 Chlordiazepoxide HCl (Librium -) 25 mg PO Q4H PRN PRN Reason: WITHDRAWAL(CONT SUBST) Stop: 09/23/17 17:58 Cyanocobalamin (Vitamin B12 -) 1,000 mcg PO DAILY [facility] Last Admin: 09/20/17 10:15 Dose: 1,000 mcg Ferrous Sulfate (Feosol -) 325 mg PO DAILY [facility] Last Admin: 09/20/17 10:14 Dose: 325 mg Folic Acid (Folic Acid -) 1 mg PO DAILY [facility] Last Admin: 09/20/17 10:14 Dose: 1 mg Gabapentin (Neurontin -) 200 mg PO [facility] Last Admin: 09/21/17 00:04 Dose: 200 mg Heparin Sodium (Porcine) (Heparin -) 5,000 unit SQ BID [facility] Last Admin: 09/21/17 00:04 Dose: 5,000 unit Ceftriaxone Sodium 1 gm/ (Dextrose) 50 mls @ 100 mls/hr IVPB DAILY [facility] Last Admin: 09/20/17 13:26 Dose: 100 mls/hr Sodium Chloride (Normal Saline -) 1,000 mls @ 100 mls/hr IV ASDIR [facility] Last Admin: 09/20/17 13:26 Dose: 100 mls/hr Potassium Chloride (K-Dur -) 20 meq PO BID [facility] Multivit/Folic Acid/Iron ( Vitamins (Sjr) -) 1 tab PO DAILY [facility] Sertraline HCl (Zoloft -) 50 mg PO DAILY [facility] Last Admin: 09/20/17 10:15 Dose: 50 mg Thiamine HCl (Vitamin B1 -) 100 mg PO HS DK - Objective Vital Signs: Vital Signs Temperature 97.1 F L 09/21/17 06:00 Pulse Rate 99 H 09/21/17 06:00 Respiratory Rate 20 09/21/17 06:00 Blood Pressure 109/65 09/21/17 06:00 O2 Sat by Pulse Oximetry (%) 96 09/21/17 04:03 Cardiovascular: Yes: Regular Rate and Rhythm (slightly tachycardic) Respiratory: Yes: Rhonchi (no rales) Gastrointestinal: Yes: Soft Edema: No Labs: CBC, BMP 09/21/17 05:10 09/21/17 05:10 INR, PTT INR 1.20 (0.82-1.09) H 09/19/17 12:25 Laboratory Tests 09/19/17 09/20/17 09/21/17 12:25 06:30 00:45 WBC Hgb Hct Plt Count Potassium Creatinine 1.4 H Troponin I < 0.02 < 0.02 Benzodiazepines Screen 09/21/17 09/21/17 09/21/17 00:48 05:10 05:10 WBC 12.5 H Hgb 7.9 L D Hct 22.3 L D Plt Count 232 D Potassium 3.0 L Creatinine 1.1 H Troponin I Benzodiazepines Screen Positive Assessment/Plan IMP: Sinus tachycardia in setting of abrupt cessation of chronic heavy ETOH Probable ETOH withdrawal History of MV fibroelastoma s/p resection ([employer]) Hyponatremia Low grade fever- possibly related to withdrawal, r/o underlying infection Elevated BNP of unclear clinical significance REC: 1. Repeat limited echo with special focus on MV to obtain transmitral gradient 2. Sinus tach improved with hydration and Rx of withdrawal 3. Discussed with renal yesterday: we did not diurese despite the markedly elevated BNP and radiographic "congestion" because clinically she appeared stable and dehydrated and labs demonstrated pre-renal state. 4. Follow cultures 5. Replete K+
[2017-09-21] MEDS ORDERED: DEXTROSE 5%-WATER - 50 ML IVPB ONE (09:06)
[2017-09-21] MEDS ORDERED: cefTRIAXone SODIUM 1 GM VIAL ONE (09:06)
[2017-09-21] MEDS: CYANOCOBALAMIN 1,000 MCG TABLET (FP) PO SCH (09:29)
[2017-09-21] MEDS: SERTRALINE HCL 50 MG TABLET (FP) PO SCH (09:29)
[2017-09-21] MEDS: FOLIC ACID 1 MG TABLET (FP) PO SCH (09:29)
[2017-09-21] MEDS: CEFTRIAXONE 1 GM in DEXTROSE 5%-WATER - 50 ML IVPB SCH (09:29)
[2017-09-21] MEDS: FERROUS SO4 325 MG TABLET (FP) PO SCH (09:29)
[2017-09-21] MEDS: amLODIPine BESYLATE 10 MG TABLET (FP) PO SCH (09:29)
[2017-09-21] MEDS: POTASSIUM CHLORIDE TABS 20 MEQ TABLET.ER (FP) PO SCH ×2 (09:29→22:20)
[2017-09-21] MEDS: PRENATAL VITAMINS W/ FOLIC ACID TABLET (FP) PO SCH (09:29)
[2017-09-21] MEDS: SODIUM CHLORIDE 1,000 ML IV SCH ×2 (10:04→14:37)
[2017-09-21] MEDS: MAGNESIUM CL 64 MG TABLET.SA PO SCH (10:46)
[2017-09-21] MEDS ORDERED: NICOTINE POLACRILEX 2 MG GUM BUC PRN (15:08)
[2017-09-21] MEDS ORDERED: LIDOCAINE HCL 2% JELLY 10 ML CARTRIDGE UR ONE (15:15)
[2017-09-21] MEDS ORDERED: POTASSIUM CHLORIDE ORAL LIQUID 20 MEQ/15 ML PO ONE (15:18)
[2017-09-21] MEDS ORDERED: amLODIPine BESYLATE 5 MG TABLET (FP) PO SCH (15:27)
[2017-09-21] MEDS: NICOTINE 14 MG/24 HOURS TOPICAL PATCH TD SCH (16:14)
[2017-09-21] MEDS ORDERED: MAGNESIUM 2GM/50ML STERILE WATER IVPB IVPB ONE (16:39)
--- NOTE | 2017-09-21 16:42 | PN ---
Progress Note (short form) - Note Progress Note: Renal Follow up for DANIS Pt seen and examined at the bedside awake and alert but groggy making urine no sob, chest pain, abd pain Vital Signs Temperature 98.2 F 09/21/17 14:13 Pulse Rate 109 H 09/21/17 14:13 Respiratory Rate 18 09/21/17 14:13 Blood Pressure 109/59 09/21/17 14:13 O2 Sat by Pulse Oximetry (%) 96 09/21/17 09:00 Intake & Output 09/18/17 09/19/17 09/20/17 09/21/17 23:59 23:59 23:59 23:59 Intake Total 850 Balance 850 Weight 50.802 kg 49.895 kg NAD, Groggy tachycardic, no M/R CTA soft NT/ND NO LE edmea CBC, BMP 09/21/17 05:10 09/21/17 05:10 Current Medications Amlodipine Besylate (Norvasc -) 5 mg PO DAILY [facility] Chlordiazepoxide HCl (Librium -) 15 mg PO [id number] [facility] Stop: 09/22/17 11:01 Chlordiazepoxide HCl (Librium -) 10 mg PO [id number] [facility] Stop: 09/23/17 11:01 Cyanocobalamin (Vitamin B12 -) 1,000 mcg PO DAILY [facility] Last Admin: 09/21/17 09:29 Dose: 1,000 mcg Ferrous Sulfate (Feosol -) 325 mg PO DAILY [facility] Last Admin: 09/21/17 09:29 Dose: 325 mg Folic Acid (Folic Acid -) 1 mg PO DAILY [facility] Last Admin: 09/21/17 09:29 Dose: 1 mg Gabapentin (Neurontin -) 200 mg PO HS [facility] Last Admin: 09/21/17 00:04 Dose: 200 mg Heparin Sodium (Porcine) (Heparin -) 5,000 unit SQ BID [facility] Last Admin: 09/21/17 09:29 Dose: 5,000 unit Ceftriaxone Sodium 1 gm/ (Dextrose) 50 mls @ 100 mls/hr IVPB DAILY [facility] Last Admin: 09/21/17 09:29 Dose: 100 mls/hr Sodium Chloride (Normal Saline -) 1,000 mls @ 100 mls/hr IV ASDIR [facility] Last Admin: 09/21/17 14:37 Dose: Not Given Magnesium Chloride (Slow-Mag -) 128 mg PO DAILY [facility] Last Admin: 09/21/17 10:46 Dose: 128 mg Nicotine (Nicoderm Patch -) 14 mg TD DAILY [facility] Last Admin: 09/21/17 16:14 Dose: 14 mg Nicotine Polacrilex (Nicorette Gum -) 2 mg BUC Q2H PRN PRN Reason: NICOTINE REPLACEMENT RX Potassium Chloride (K-Dur -) 20 meq PO BID [facility] Last Admin: 09/21/17 09:29 Dose: 20 meq Multivit/Folic Acid/Iron ( Vitamins (Sjr) -) 1 tab PO DAILY [facility] Last Admin: 09/21/17 09:29 Dose: 1 tab Sertraline HCl (Zoloft -) 50 mg PO DAILY [facility] Last Admin: 09/21/17 09:29 Dose: 50 mg Thiamine HCl (Vitamin B1 -) 100 mg PO HS DK Zolpidem Tartrate (Ambien -) 5 mg PO HS PRN PRN Reason: INSOMNIA 56 year old woman with PMhx of Hypertension, CAD s/p CABG, MVR, Chronic ETOH abuse who was sent from outpatient rehab with tachycardia and found to have BUN/ Cr of 24/1.4 and Na of 129. #DANIS (baseline Cr 0.6) likely secondary to volume depletion but now pt with contrast exposure #Hyponatremia #Mild pulmonary congestion on imaging #Tachycardia #Metabolic acidosis (non-anion gap) #ETOH abuse/withdrawal #Hypokalemia #Adrenal Lesion #Suspected Pylonephritis Renal function stable volume status appears evolemic would continue NS at 100cc per hour s/p KCL in the AM, will also give IV mg sulfate hyponatremia resolved check iron stuides, stool occult blood for anemia diagnostic imaging for adrenal lesion once renal function is improved start sodium bicarb 650mg daily for acidosis Thank you August Lowery DO
[2017-09-21] MEDS: SODIUM BICARBONATE 650 MG TABLET PO SCH (17:27)
[2017-09-21] MEDS: chlordiazePOXIDE 5 MG CAPSULE PO SCH ×2 (17:27→22:20)
--- NOTE | 2017-09-21 21:00 | PN ---
Progress Note, Physician History of Present Illness: Pt lethargic but slightly tremulous - Current Medication List Current Medications: Active Medications Amlodipine Besylate (Norvasc -) 5 mg PO DAILY [facility] Chlordiazepoxide HCl (Librium -) 15 mg PO [id number] [facility] Stop: 09/22/17 11:01 Last Admin: 09/21/17 17:27 Dose: 15 mg Chlordiazepoxide HCl (Librium -) 10 mg PO [id number] [facility] Stop: 09/23/17 11:01 Cyanocobalamin (Vitamin B12 -) 1,000 mcg PO DAILY [facility] Last Admin: 09/21/17 09:29 Dose: 1,000 mcg Ferrous Sulfate (Feosol -) 325 mg PO DAILY [facility] Last Admin: 09/21/17 09:29 Dose: 325 mg Folic Acid (Folic Acid -) 1 mg PO DAILY [facility] Last Admin: 09/21/17 09:29 Dose: 1 mg Gabapentin (Neurontin -) 200 mg PO HS [facility] Last Admin: 09/21/17 00:04 Dose: 200 mg Heparin Sodium (Porcine) (Heparin -) 5,000 unit SQ BID [facility] Last Admin: 09/21/17 09:29 Dose: 5,000 unit Ceftriaxone Sodium 1 gm/ (Dextrose) 50 mls @ 100 mls/hr IVPB DAILY [facility] Last Admin: 09/21/17 09:29 Dose: 100 mls/hr Sodium Chloride (Normal Saline -) 1,000 mls @ 100 mls/hr IV ASDIR [facility] Last Admin: 09/21/17 14:37 Dose: Not Given Magnesium Chloride (Slow-Mag -) 128 mg PO DAILY [facility] Last Admin: 09/21/17 10:46 Dose: 128 mg Nicotine (Nicoderm Patch -) 14 mg TD DAILY [facility] Last Admin: 09/21/17 16:14 Dose: 14 mg Nicotine Polacrilex (Nicorette Gum -) 2 mg BUC Q2H PRN PRN Reason: NICOTINE REPLACEMENT RX Potassium Chloride (K-Dur -) 20 meq PO BID [facility] Last Admin: 09/21/17 09:29 Dose: 20 meq Multivit/Folic Acid/Iron ( Vitamins (Sjr) -) 1 tab PO DAILY [facility] Last Admin: 09/21/17 09:29 Dose: 1 tab Sertraline HCl (Zoloft -) 50 mg PO DAILY [facility] Last Admin: 09/21/17 09:29 Dose: 50 mg Sodium Bicarbonate (Sodium Bicarbonate -) 650 mg PO DAILY [facility] Last Admin: 09/21/17 17:27 Dose: 650 mg Thiamine HCl (Vitamin B1 -) 100 mg PO HS DK Zolpidem Tartrate (Ambien -) 5 mg PO HS PRN PRN Reason: INSOMNIA - Objective Vital Signs: Vital Signs Temperature 98.0 F 09/21/17 17:00 Pulse Rate 104 H 09/21/17 17:00 Respiratory Rate 18 09/21/17 17:00 Blood Pressure 103/61 09/21/17 17:00 O2 Sat by Pulse Oximetry (%) 96 09/21/17 09:00 Constitutional: Yes: Cachectic HENT: Yes: WNL Neck: Yes: WNL, Supple Cardiovascular: Yes: Tachycardia Respiratory: Yes: WNL, Regular, CTA Bilaterally Gastrointestinal: Yes: WNL, Normal Bowel Sounds, Soft Labs: CBC, BMP 09/21/17 05:10 09/21/17 05:10 INR, PTT INR 1.20 (0.82-1.09) H 09/19/17 12:25 Problem List - Problems (1) Alcohol withdrawal Assessment/Plan: Cont detox w/ librium Agree w/ dc planning to inpt rehab Monitor electrolytes Replace K+ and monitor labs Code(s): F10.239 - ALCOHOL DEPENDENCE WITH WITHDRAWAL, UNSPECIFIED (2) Pyelonephritis Assessment/Plan: Cont IV ceftriaxone Urine culture pending but lactose fermenting bacilli ID consult Code(s): N12 - TUBULO-INTERSTITIAL NEPHRITIS, NOT SPCF ACUTE OR CHRONIC (3) Tachycardia Assessment/Plan: Multifactorial Due to etoh withdrawal Code(s): R00.0 - TACHYCARDIA, UNSPECIFIED (4) ARF (acute renal failure) Assessment/Plan: Improved w/ IV hydration Cont to monitor No sign clinically of overload Code(s): N17.9 - ACUTE KIDNEY FAILURE, UNSPECIFIED (5) HTN (hypertension) Assessment/Plan: BP stable Cont norvasc Code(s): I10 - ESSENTIAL (PRIMARY) HYPERTENSION (6) HLD (hyperlipidemia) Code(s): E78.5 - HYPERLIPIDEMIA, UNSPECIFIED (7) COPD (chronic obstructive pulmonary disease) Code(s): J44.9 - CHRONIC OBSTRUCTIVE PULMONARY DISEASE, UNSPECIFIED (8) Anemia Assessment/Plan: Cont folic acid/ferrous sulfate Repeat H/H in am and transfuse as needed ?Dilutional to IVF Heme consult Cjeck stool hemoccult Code(s): D64.9 - ANEMIA, UNSPECIFIED (9) Cachexia Assessment/Plan: Cont ensure Encourage PO intake Code(s): R64 - CACHEXIA (10) Anxiety and depression Assessment/Plan: Cont zoloft Code(s): F41.9 - ANXIETY DISORDER, UNSPECIFIED; F32.9 - MAJOR DEPRESSIVE DISORDER, SINGLE EPISODE, UNSPECIFIED
[2017-09-21] MEDS ORDERED: SODIUM CHLORIDE 100 ML with POTASSIUM CHLORIDE 10 MEQ IVPB SCH (22:00)
[2017-09-21] MEDS ORDERED: KCL 10 MEQ IVPB 10 MEQ/100 ML INFUS.BAG IVPB SCH (22:00)
[2017-09-21] MEDS: THIAMINE HCL 100 MG TABLET (FP) PO SCH (22:19)
[2017-09-21] MEDS: POTASSIUM CHLORIDE 10 MEQ in SODIUM CHLORIDE 100 ML IVPB SCH (22:20)
[2017-09-22] MEDS: POTASSIUM CHLORIDE 10 MEQ in SODIUM CHLORIDE 100 ML IVPB SCH ×2 (00:49→01:56)
[2017-09-22] MEDS: chlordiazePOXIDE 5 MG CAPSULE PO SCH ×3 (05:50→11:27)
[2017-09-22 08:35] LABS: CHLORIDE 112 mmol/L (98-107); POTASSIUM 4.7 mmol/L (3.5-5.1); SODIUM 140 mmol/L (136-145)
[2017-09-22 08:39] LABS: BASO % 0.7 % (0-2.0); EOS % 1.3 % (0-4.5); HEMATOCRIT 25.6 % (32.4-45.2); HEMOGLOBIN 8.5 GM/dL (10.7-15.3); LYMPH % 8.6 % (8-40); MCH 31.8 pg (25.7-33.7); MCHC 33.3 g/dl (32.0-36.0); MEAN CELL VOLUME 95.7 fl (80-96); MEAN PLT VOLUME 9.1 fl (7.5-11.1); MONO % 10.5 % (3.8-10.2); NEUT % 78.9 % (42.8-82.8); PLATELET COUNT 345 K/MM3 (134-434); RBC 2.68 M/mm3 (3.60-5.2); RDW 16.9 % (11.6-15.6); WHITE BLOOD COUNT 13.3 K/mm3 (4.0-10.0)
[2017-09-22 08:48] LABS: ALBUMIN 1.8 g/dl (3.4-5.0); ALK PHOS 205 U/L (45-117); ANION GAP 10 (8-16); BILIRUBIN,TOTAL 0.4 mg/dL (0.2-1.0); BLOOD UREA NITROGEN 16 mg/dL (7-18); CALCIUM 7.9 mg/dL (8.5-10.1); CO2 18 mmol/L (21-32); GLUCOSE,RANDOM 84 mg/dL (74-106); MAGNESIUM 2.2 mg/dL (1.8-2.4); PHOSPHOROUS 2.7 mg/dL (2.5-4.9); SGOT/AST 18 U/L (15-37); SGPT/ALT 8 U/L (12-78); TOT PROT 5.6 g/dl (6.4-8.2)
--- NOTE | 2017-09-22 08:50 | PN ---
Progress Note, Physician Chief Complaint: + Urine cx with gram - bacteremia/ Urosepsis TELE: NSR improved tachcardia - Current Medication List Current Medications: Active Medications Amlodipine Besylate (Norvasc -) 5 mg PO DAILY [facility] Chlordiazepoxide HCl (Librium -) 15 mg PO [id number] [facility] Stop: 09/22/17 11:01 Last Admin: 09/22/17 06:15 Dose: 15 mg Chlordiazepoxide HCl (Librium -) 10 mg PO [id number] [facility] Stop: 09/23/17 11:01 Cyanocobalamin (Vitamin B12 -) 1,000 mcg PO DAILY [facility] Last Admin: 09/21/17 09:29 Dose: 1,000 mcg Ferrous Sulfate (Feosol -) 325 mg PO DAILY [facility] Last Admin: 09/21/17 09:29 Dose: 325 mg Folic Acid (Folic Acid -) 1 mg PO DAILY [facility] Last Admin: 09/21/17 09:29 Dose: 1 mg Gabapentin (Neurontin -) 200 mg PO HS [facility] Last Admin: 09/21/17 22:20 Dose: 200 mg Heparin Sodium (Porcine) (Heparin -) 5,000 unit SQ BID [facility] Last Admin: 09/21/17 22:19 Dose: 5,000 unit Ceftriaxone Sodium 1 gm/ (Dextrose) 50 mls @ 100 mls/hr IVPB DAILY [facility] Last Admin: 09/21/17 09:29 Dose: 100 mls/hr Sodium Chloride (Normal Saline -) 1,000 mls @ 100 mls/hr IV ASDIR [facility] Last Admin: 09/21/17 14:37 Dose: Not Given Magnesium Chloride (Slow-Mag -) 128 mg PO DAILY [facility] Last Admin: 09/21/17 10:46 Dose: 128 mg Nicotine (Nicoderm Patch -) 14 mg TD DAILY [facility] Last Admin: 09/21/17 16:14 Dose: 14 mg Nicotine Polacrilex (Nicorette Gum -) 2 mg BUC Q2H PRN PRN Reason: NICOTINE REPLACEMENT RX Potassium Chloride (K-Dur -) 20 meq PO BID [facility] Last Admin: 09/21/17 22:20 Dose: 20 meq Multivit/Folic Acid/Iron ( Vitamins (Sjr) -) 1 tab PO DAILY [facility] Last Admin: 09/21/17 09:29 Dose: 1 tab Sertraline HCl (Zoloft -) 50 mg PO DAILY [facility] Last Admin: 09/21/17 09:29 Dose: 50 mg Sodium Bicarbonate (Sodium Bicarbonate -) 650 mg PO DAILY [facility] Last Admin: 09/21/17 17:27 Dose: 650 mg Thiamine HCl (Vitamin B1 -) 100 mg PO HS [facility] Last Admin: 09/21/17 22:19 Dose: 100 mg Zolpidem Tartrate (Ambien -) 5 mg PO HS PRN PRN Reason: INSOMNIA - Objective Vital Signs: Vital Signs Temperature 98.3 F 09/22/17 08:04 Pulse Rate 104 H 09/22/17 08:04 Respiratory Rate 16 09/22/17 08:07 Blood Pressure 110/70 09/22/17 08:04 O2 Sat by Pulse Oximetry (%) 97 09/22/17 08:07 Constitutional: Yes: Anxious Eyes: Yes: EOM Intact Cardiovascular: Yes: Regular Rate and Rhythm Respiratory: Yes: Rhonchi Gastrointestinal: Yes: Soft (NT) Edema: No Neurological: Yes: Other (sleeping, easily wakes) Labs: CBC, BMP 09/22/17 06:49 INR, PTT INR 1.20 (0.82-1.09) H 09/19/17 12:25 - ....Imaging EKG: Image Reviewed Assessment/Plan IMP: UTI w/ gram - bacteremia Sinus tachycardia in setting of abrupt cessation of chronic heavy ETOH ETOH withdrawal History of MV fibroelastoma s/p resection ([facility]) Hyponatremia, resolved Elevated BNP of unclear clinical significance REC: 1. Repeat limited echo with special focus on MV to obtain transmitral gradient 2. Sinus tach improved with hydration and Rx of withdrawal, probable dilutional anemia and infection contributing causes 3. Discussed with renal yesterday: we did not diurese despite the markedly elevated BNP and radiographic "congestion" because clinically she appeared stable and dehydrated and labs demonstrated pre-renal state. Will repeat CXR today 4. Follow cultures 5. Replete K+ and Mg2+
[2017-09-22] MEDS: MAGNESIUM CL 64 MG TABLET.SA PO SCH (09:51)
[2017-09-22] MEDS: PRENATAL VITAMINS W/ FOLIC ACID TABLET (FP) PO SCH (09:51)
[2017-09-22] MEDS ORDERED: cefTRIAXone SODIUM 1 GM VIAL ONE (09:54)
[2017-09-22] MEDS ORDERED: DEXTROSE 5%-WATER - 50 ML IVPB ONE (09:55)
[2017-09-22] MEDS: NICOTINE 14 MG/24 HOURS TOPICAL PATCH TD SCH (09:55)
[2017-09-22] MEDS: FERROUS SO4 325 MG TABLET (FP) PO SCH (09:55)
[2017-09-22] MEDS: CYANOCOBALAMIN 1,000 MCG TABLET (FP) PO SCH (09:55)
[2017-09-22] MEDS: FOLIC ACID 1 MG TABLET (FP) PO SCH (09:55)
[2017-09-22] MEDS: HEPARIN NA (PORCINE) 5,000 UNITS/ML 1ML VIAL SQ SCH ×2 (09:55→23:03)
[2017-09-22] MEDS: CEFTRIAXONE 1 GM in DEXTROSE 5%-WATER - 50 ML IVPB SCH (09:56)
[2017-09-22] MEDS: POTASSIUM CHLORIDE TABS 20 MEQ TABLET.ER (FP) PO SCH (09:59)
[2017-09-22] MEDS ORDERED: PT OWN MED DRAWER 7, Y5N ONE (10:02)
[2017-09-22] MEDS: SERTRALINE HCL 50 MG TABLET (FP) PO SCH (10:07)
[2017-09-22] MEDS: SODIUM BICARBONATE 650 MG TABLET PO SCH (11:30)
[2017-09-22] MEDS ORDERED: FUROSEMIDE 40 MG/4 ML INJECTABLE VIAL IVPUSH ONE (12:30)
[2017-09-22] MEDS ORDERED: chlordiazePOXIDE 5 MG CAPSULE PO PRN (12:45)
--- NOTE | 2017-09-22 12:53 | PN ---
[facility] Progress Note (SOAP) Subjective: patient appears very sedated, have d/c scheduled medication and other centrally acting sedating medication, Objective: 09/22/17 12:48 sob, tachycardic, and o x3, sedated, no sweats, no tremor noted Vital Signs - 24 hr 09/21/17 09/21/17 09/21/17 14:13 17:00 20:10 Temperature 98.2 F 98.0 F 98.6 F Pulse Rate 109 H 104 H 107 H Respiratory 18 18 20 Rate Blood Pressure 109/59 103/61 115/71 O2 Sat by Pulse Oximetry (%) 09/21/17 09/22/17 09/22/17 21:00 02:00 06:00 Temperature 98.3 F 98.3 F Pulse Rate 103 H 102 H Respiratory 20 20 Rate Blood Pressure 112/66 109/73 O2 Sat by Pulse 95 Oximetry (%) 09/22/17 09/22/17 08:04 08:07 Temperature 98.3 F Pulse Rate 104 H Respiratory 16 16 Rate Blood Pressure 110/70 O2 Sat by Pulse 97 97 Oximetry (%) Laboratory Tests 09/19/17 09/19/17 09/19/17 12:25 12:25 12:25 WBC 13.4 H D RBC 2.80 L Hgb 8.9 L D Hct 26.1 L D MCV 93.4 MCH 31.9 MCHC 34.2 RDW 15.8 H Plt Count 185 MPV 10.7 D Total Counted 100 Neutrophils % No Result Required. Neutrophils % (Manual) 77.0 Band Neutrophils % 2.0 Lymphocytes % No Result Required. Lymphocytes % (Manual) 8.0 Monocytes % Monocytes % (Manual) 13 H Eosinophils % Basophils % Platelet Estimate Adequate PT with INR INR Sodium 129 L Potassium 3.9 Chloride 97 L Carbon Dioxide 24 Anion Gap 8 BUN 24 H Creatinine 1.4 H Creat Clearance w eGFR 39.04 Random Glucose 129 H Lactic Acid Calcium 8.2 L Phosphorus Magnesium Ferritin Total Bilirubin 0.6 D AST 18 ALT 9 L Alkaline Phosphatase 188 H Creatine Kinase 44 Troponin I < 0.02 B-Natriuretic Peptide 4237.14 H Total Protein 6.4 Albumin 2.6 L Lipase Urine Color Urine Appearance Urine pH Ur Specific [place] Urine Protein Urine Glucose (UA) Urine Ketones Urine Blood Urine Nitrite Urine Bilirubin Urine Urobilinogen Ur Leukocyte Esterase Urine WBC (Auto) Urine RBC (Auto) Ur Epithelial Cells Urine Bacteria Urine Mucus U Random Total Protein Ur Random Sodium Ur Random Urea Nitrogn Urine Creatinine Opiates Screen Methadone Screen Barbiturate Screen Phencyclidine Screen Ur Amphetamines Screen MDMA (Ecstasy) Screen Benzodiazepines Screen Cocaine Screen U Marijuana (THC) Screen 09/19/17 09/19/17 09/19/17 12:25 12:45 12:45 WBC RBC Hgb Hct MCV MCH MCHC RDW Plt Count MPV Total Counted Neutrophils % Neutrophils % (Manual) Band Neutrophils % Lymphocytes % Lymphocytes % (Manual) Monocytes % Monocytes % (Manual) Eosinophils % Basophils % Platelet Estimate PT with INR 13.60 H INR 1.20 H Sodium Potassium Chloride Carbon Dioxide Anion Gap BUN Creatinine Creat Clearance w eGFR Random Glucose Lactic Acid 1.0 Calcium Phosphorus Magnesium Ferritin Total Bilirubin AST ALT Alkaline Phosphatase Creatine Kinase Troponin I B-Natriuretic Peptide Total Protein Albumin Lipase 59 L Urine Color Urine Appearance Urine pH Ur Specific [place] Urine Protein Urine Glucose (UA) Urine Ketones Urine Blood Urine Nitrite Urine Bilirubin Urine Urobilinogen Ur Leukocyte Esterase Urine WBC (Auto) Urine RBC (Auto) Ur Epithelial Cells Urine Bacteria Urine Mucus U Random Total Protein Ur Random Sodium Ur Random Urea Nitrogn Urine Creatinine Opiates Screen Methadone Screen Barbiturate Screen Phencyclidine Screen Ur Amphetamines Screen MDMA (Ecstasy) Screen Benzodiazepines Screen Cocaine Screen U Marijuana (THC) Screen 09/19/17 09/20/17 09/20/17 18:50 06:30 06:30 WBC 12.6 H RBC 2.93 L Hgb 9.4 L Hct 27.5 L MCV 93.8 MCH 31.9 MCHC 34.0 RDW 16.2 H Plt Count 189 MPV 10.5 Total Counted Neutrophils % 83.3 H D Neutrophils % (Manual) Band Neutrophils % Lymphocytes % 5.6 L D Lymphocytes % (Manual) Monocytes % 9.7 Monocytes % (Manual) Eosinophils % 0.9 Basophils % 0.5 Platelet Estimate PT with INR INR Sodium Potassium Chloride Carbon Dioxide Anion Gap BUN Creatinine Creat Clearance w eGFR Random Glucose Lactic Acid Calcium Phosphorus Magnesium Ferritin Total Bilirubin AST ALT Alkaline Phosphatase Creatine Kinase Cancelled Troponin I Cancelled B-Natriuretic Peptide Total Protein Albumin Lipase Urine Color Yellow Urine Appearance Cloudy Urine pH 6.0 Ur Specific [place] 1.012 Urine Protein 2+ H Urine Glucose (UA) Negative Urine Ketones Negative Urine Blood 2+ H Urine Nitrite Positive Urine Bilirubin Negative Urine Urobilinogen Negative Ur Leukocyte Esterase 3+ H D Urine WBC (Auto) 102 Urine RBC (Auto) 4 Ur Epithelial Cells Rare Urine Bacteria Rare Urine Mucus Rare U Random Total Protein Ur Random Sodium Ur Random Urea Nitrogn Urine Creatinine Opiates Screen Methadone Screen Barbiturate Screen Phencyclidine Screen Ur Amphetamines Screen MDMA (Ecstasy) Screen Benzodiazepines Screen Cocaine Screen U Marijuana (THC) Screen 09/20/17 09/20/17 09/21/17 06:30 16:00 00:45 WBC RBC Hgb Hct MCV MCH MCHC RDW Plt Count MPV Total Counted Neutrophils % Neutrophils % (Manual) Band Neutrophils % Lymphocytes % Lymphocytes % (Manual) Monocytes % Monocytes % (Manual) Eosinophils % Basophils % Platelet Estimate PT with INR INR Sodium 136 137 Potassium 3.3 L 3.1 L Chloride 106 104 Carbon Dioxide 20 L 19 L Anion Gap 10 14 BUN 22 H 25 H Creatinine 1.2 H 1.3 H Creat Clearance w eGFR 46.64 Random Glucose 81 133 H Lactic Acid Calcium 7.8 L 8.0 L Phosphorus Magnesium Ferritin Total Bilirubin 0.5 AST 10 L ALT 7 L Alkaline Phosphatase 175 H Creatine Kinase 16 L 14 L Troponin I < 0.02 < 0.02 B-Natriuretic Peptide Total Protein 5.5 L Albumin 2.1 L Lipase Urine Color Urine Appearance Urine pH Ur Specific [place] Urine Protein Urine Glucose (UA) Urine Ketones Urine Blood Urine Nitrite Urine Bilirubin Urine Urobilinogen Ur Leukocyte Esterase Urine WBC (Auto) Urine RBC (Auto) Ur Epithelial Cells Urine Bacteria Urine Mucus U Random Total Protein Ur Random Sodium Ur Random Urea Nitrogn Urine Creatinine Opiates Screen Methadone Screen Barbiturate Screen Phencyclidine Screen Ur Amphetamines Screen MDMA (Ecstasy) Screen Benzodiazepines Screen Cocaine Screen U Marijuana (THC) Screen 09/21/17 09/21/17 09/21/17 00:48 00:48 00:48 WBC RBC Hgb Hct MCV MCH MCHC RDW Plt Count MPV Total Counted Neutrophils % Neutrophils % (Manual) Band Neutrophils % Lymphocytes % Lymphocytes % (Manual) Monocytes % Monocytes % (Manual) Eosinophils % Basophils % Platelet Estimate PT with INR INR Sodium Potassium Chloride Carbon Dioxide Anion Gap BUN Creatinine Creat Clearance w eGFR Random Glucose Lactic Acid Calcium Phosphorus Magnesium Ferritin Total Bilirubin AST ALT Alkaline Phosphatase Creatine Kinase Troponin I B-Natriuretic Peptide Total Protein Albumin Lipase Urine Color Urine Appearance Urine pH Ur Specific [place] Urine Protein Urine Glucose (UA) Urine Ketones Urine Blood Urine Nitrite Urine Bilirubin Urine Urobilinogen Ur Leukocyte Esterase Urine WBC (Auto) Urine RBC (Auto) Ur Epithelial Cells Urine Bacteria Urine Mucus U Random Total Protein Ur Random Sodium 31 Ur Random Urea Nitrogn Urine Creatinine 73.3 Opiates Screen Negative Methadone Screen Negative Barbiturate Screen Negative Phencyclidine Screen Negative Ur Amphetamines Screen Negative MDMA (Ecstasy) Screen Negative Benzodiazepines Screen Positive Cocaine Screen Negative U Marijuana (THC) Screen Negative 09/21/17 09/21/17 09/21/17 00:48 00:48 05:10 WBC 12.5 H RBC 2.38 L Hgb 7.9 L D Hct 22.3 L D MCV 93.7 MCH 33.1 MCHC 35.3 RDW 15.8 H Plt Count 232 D MPV 9.8 Total Counted Neutrophils % 81.1 Neutrophils % (Manual) Band Neutrophils % Lymphocytes % 5.8 L Lymphocytes % (Manual) Monocytes % 11.7 H Monocytes % (Manual) Eosinophils % 1.0 Basophils % 0.4 Platelet Estimate PT with INR INR Sodium Potassium Chloride Carbon Dioxide Anion Gap BUN Creatinine Creat Clearance w eGFR Random Glucose Lactic Acid Calcium Phosphorus Magnesium Ferritin Total Bilirubin AST ALT Alkaline Phosphatase Creatine Kinase Troponin I B-Natriuretic Peptide Total Protein Albumin Lipase Urine Color Urine Appearance Urine pH Ur Specific [place] Urine Protein Urine Glucose (UA) Urine Ketones Urine Blood Urine Nitrite Urine Bilirubin Urine Urobilinogen Ur Leukocyte Esterase Urine WBC (Auto) Urine RBC (Auto) Ur Epithelial Cells Urine Bacteria Urine Mucus U Random Total Protein 230 H Ur Random Sodium Ur Random Urea Nitrogn 396 Urine Creatinine Opiates Screen Methadone Screen Barbiturate Screen Phencyclidine Screen Ur Amphetamines Screen MDMA (Ecstasy) Screen Benzodiazepines Screen Cocaine Screen U Marijuana (THC) Screen 09/21/17 09/22/17 09/22/17 05:10 06:49 06:49 WBC 13.3 H RBC 2.68 L Hgb 8.5 L Hct 25.6 L MCV 95.7 MCH 31.8 MCHC 33.3 RDW 16.9 H Plt Count 345 D MPV 9.1 Total Counted Neutrophils % 78.9 Neutrophils % (Manual) Band Neutrophils % Lymphocytes % 8.6 D Lymphocytes % (Manual) Monocytes % 10.5 H Monocytes % (Manual) Eosinophils % 1.3 Basophils % 0.7 Platelet Estimate PT with INR INR Sodium 139 140 Potassium 3.0 L 4.7 Chloride 111 H 112 H Carbon Dioxide 19 L 18 L Anion Gap 9 10 BUN 23 H 16 Creatinine 1.1 H 1.0 Creat Clearance w eGFR 51.57 57.56 Random Glucose 69 L 84 Lactic Acid Calcium 7.4 L 7.9 L Phosphorus 3.5 2.7 Magnesium 1.6 L 2.2 Ferritin 901.498 H Total Bilirubin 0.4 0.4 AST 9 L 18 ALT < 6 L 8 L Alkaline Phosphatase 167 H 205 H Creatine Kinase Troponin I B-Natriuretic Peptide Total Protein 5.1 L 5.6 L Albumin 1.9 L 1.8 L Lipase Urine Color Urine Appearance Urine pH Ur Specific [place] Urine Protein Urine Glucose (UA) Urine Ketones Urine Blood Urine Nitrite Urine Bilirubin Urine Urobilinogen Ur Leukocyte Esterase Urine WBC (Auto) Urine RBC (Auto) Ur Epithelial Cells Urine Bacteria Urine Mucus U Random Total Protein Ur Random Sodium Ur Random Urea Nitrogn Urine Creatinine Opiates Screen Methadone Screen Barbiturate Screen Phencyclidine Screen Ur Amphetamines Screen MDMA (Ecstasy) Screen Benzodiazepines Screen Cocaine Screen U Marijuana (THC) Screen elevated ferritin level, normocytic anemia, k corrected after supplementation Assessment: 09/22/17 12:50 d/c libiruM TAPER, PATIENT DENIES DAILY ALCOHOL USE and appears sedated. will d /c sleep aids including neurontin which may cause sedation. normal ferritin, can d/c iron supplements, ensure and a dietary consult ordered, k supplementation d/c. nicotine patch decreased to 7mg as this may be contributijng to tachycardia althouh carrie reports smoking a 1/2 PPD. has been rehydrated. prn libirum for anxiety or any withdrawl sx noted remains ordered. Akil is not a candidate to traser to [facility] drug rehab at [facility] time as medically unstable and will be deconditioned after hosptializaTION.
--- NOTE | 2017-09-22 13:01 | PN ---
Progress Note (short form) - Note Progress Note: Renal Follow up for DANIS Pt seen and examined at the bedside awake, looks uncomfortable reports some sob no chest pain no N/V/D making urine Vital Signs Temperature 98.3 F 09/22/17 08:04 Pulse Rate 104 H 09/22/17 08:04 Respiratory Rate 16 09/22/17 08:07 Blood Pressure 110/70 09/22/17 08:04 O2 Sat by Pulse Oximetry (%) 97 09/22/17 08:07 Intake & Output 09/19/17 09/20/17 09/21/17 09/22/17 23:59 23:59 23:59 23:59 Intake Total 1210 1200 Balance 1210 1200 Weight 50.802 kg 49.895 kg mild respiratory distress tachycardic, no M/R CTA soft NT/ND NO LE edmea CBC, BMP 09/22/17 06:49 09/22/17 06:49 Current Medications Amlodipine Besylate (Norvasc -) 5 mg PO DAILY [facility] Last Admin: 09/22/17 09:55 Dose: 5 mg Chlordiazepoxide HCl (Librium -) 10 mg PO [id number] PRN PRN Reason: WITHDRAWAL(CONT SUBST) Stop: 09/23/17 11:01 Cyanocobalamin (Vitamin B12 -) 1,000 mcg PO DAILY [facility] Last Admin: 09/22/17 09:55 Dose: 1,000 mcg Folic Acid (Folic Acid -) 1 mg PO DAILY [facility] Last Admin: 09/22/17 09:55 Dose: 1 mg Furosemide (Lasix Injection -) 40 mg IVPUSH ONCE ONE Stop: 09/22/17 12:31 Heparin Sodium (Porcine) (Heparin -) 5,000 unit SQ BID [facility] Last Admin: 09/22/17 09:55 Dose: 5,000 unit Ceftriaxone Sodium 1 gm/ (Dextrose) 50 mls @ 100 mls/hr IVPB DAILY [facility] Last Admin: 09/22/17 09:56 Dose: 100 mls/hr Magnesium Chloride (Slow-Mag -) 128 mg PO DAILY [facility] Last Admin: 09/22/17 09:51 Dose: 128 mg Nicotine (Nicoderm Patch -) 7 mg TD DAILY [facility] Nicotine Polacrilex (Nicorette Gum -) 2 mg BUC Q2H PRN PRN Reason: NICOTINE REPLACEMENT RX Multivit/Folic Acid/Iron ( Vitamins (Sjr) -) 1 tab PO DAILY [facility] Last Admin: 09/22/17 09:51 Dose: 1 tab Sertraline HCl (Zoloft -) 50 mg PO DAILY [facility] Last Admin: 09/21/17 09:29 Dose: 50 mg Sodium Bicarbonate (Sodium Bicarbonate -) 650 mg PO DAILY [facility] Last Admin: 09/22/17 11:30 Dose: 650 mg Thiamine HCl (Vitamin B1 -) 100 mg PO [facility] Last Admin: 09/21/17 22:19 Dose: 100 mg 56 year old woman with PMhx of Hypertension, CAD s/p CABG, MVR, Chronic ETOH abuse who was sent from outpatient rehab with tachycardia and found to have BUN/ Cr of 24/1.4 and Na of 129. #DANIS (baseline Cr 0.6) likely secondary to volume depletion but now pt with contrast exposure #Hyponatremia #Mild pulmonary congestion on imaging #Tachycardia #Metabolic acidosis (non-anion gap) #ETOH abuse/withdrawal #Hypokalemia #Adrenal Lesion #Suspected Pylonephritis Renal function stable, however not yet at baseline pt with evidence of fluid overload, and respiratory distress today CXR shows congestion will stop IVF, give Lasix 40mg IV x 1 now monitor resp status Cardiology follow up continue supportive care Adrenal imaging once renal function at baseline Thank you August Lowery DO
[2017-09-22] MEDS ORDERED: ACETAMINOPHEN 325 MG TABLET (FP) ONE (14:35)
--- NOTE | 2017-09-22 14:54 | PN ---
Progress Note (short form) - Note Progress Note: Cardiology CXR reviewed and discussed with renal: b/l effusions and increased PVC. Repeat limited echo reviewed: elevated transmitral valve gradient 15mmHg indicative severe MS, prior MV fibroelastoma resection [facility]. Clinically now febrile, sinus tach, sleepy. Chest with b/l rales and rhonchi, no edema. Good urine output after first dose lasix. 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 Transfer to ICU 2. Helm catheter 3. Consider changing Abx, as per ID and PMD 4. Supplimental O2 5. Change Lasix to 40mg IV BID, strict Is/Os; daily electrolytes and BMP 6. D/C Amlodipine When acute infectious and withdrawal issues improved/resolved needs CT surgery and interventional cardiology consultation for options re. mitral valve. Currently not a candidate for any percutaneous or surgical interventions due to acute infection and active withdrawal.
--- NOTE | 2017-09-22 15:28 | CONSULT ---
Consultation: REQUESTING PROVIDER: CONSULT REQUEST: We have been asked to medically evaluate this patient for hypoxia. HISTORY OF PRESENT ILLNESS: Ms. Carter is a 56 yo female w/ pmh of HTN, MVR, CAD s/p CABG, and chronic alcohol abuse who initially presented to the ER 09/19 reporting a 1 week history of night sweats with tremors, shortness of breath, dyspnea on exertion, intermittent palpitations, chest tightness, fatigue, visual hallucinations on waking, and confusion after attempting alcohol cessation. She had previously been drinking 1 pint per day of vodka, last drink reported to be 09/12. In ER patient was noted to have tremors and HR to 120; CT revealed perinephric fat stranding and a UA revealed UTI. Patient was started on ceftriaxone and admitted for malnutrition. Ms. Carter was found to have gram negative bacteremia on urine culture. Further history also revealed mitral valve fibroelastoma s/p resection at [place]. Patient noted to have elevated BNP. Repeat CXR revealed bilateral effusions with increased PVC. Echo revealed an elevated transmitral valve gradient to 15mmHg indicative of severe mitral stenosis. Patient transferred to ICU for worsening hypoxia today. Patient noted to be bacteremic. ID consulted who changed ABX to Zosyn. Current plan to involve CT surgery and interventional cardiology concerning mitral valve once acute infectious and withdrawal issues resolve. REVIEW OF SYSTEMS: Unable to obtain at this time as patient is currently obtunded. PHYSICAL EXAMINATION Vital Signs - 24 hr 09/21/17 09/21/17 09/21/17 17:00 20:10 21:00 Temperature 98.0 F 98.6 F Pulse Rate 104 H 107 H Respiratory 18 20 Rate Blood Pressure 103/61 115/71 O2 Sat by Pulse 95 Oximetry (%) 09/22/17 09/22/17 09/22/17 02:00 06:00 08:04 Temperature 98.3 F 98.3 F 98.3 F Pulse Rate 103 H 102 H 104 H Respiratory 20 20 16 Rate Blood Pressure 112/66 109/73 110/70 O2 Sat by Pulse 97 Oximetry (%) 09/22/17 09/22/17 08:07 14:23 Temperature 102.8 F H Pulse Rate 126 H Respiratory 16 18 Rate Blood Pressure 123/80 O2 Sat by Pulse 97 Oximetry (%) GENERAL: +Patient awake and oriented to self only. Very warm to touch and noted to be febrile to 102.8 before transfer to ICU. HEAD: Normal with no signs of trauma. EYES: Pupils equal, round and reactive to light, extraocular movements intact, sclera anicteric, conjunctiva clear. No lid lag. EARS, NOSE, THROAT: Ears normal, nares patent, oropharynx clear without exudates. Moist mucous membranes. NECK: Normal range of motion, supple without lymphadenopathy, JVD, or masses. LUNGS: Breath sounds equal, clear to auscultation bilaterally, no wheezes, no crackles, no accessory muscle use. HEART: +Tachycardic, regular rhythm, normal S1 and S2 without murmur, rub or gallop. ABDOMEN: Soft, nontender, not distended, normoactive bowel sounds, no guarding, no rebound, no masses. No hepatomegaly or splenomegaly. MUSCULOSKELETAL: Normal range of motion at all joints. No bony deformities or tenderness. No CVA tenderness. UPPER EXTREMITIES: 2+ pulses, warm, well-perfused. No cyanosis. No clubbing. Cap refill <2 seconds. No peripheral edema. LOWER EXTREMITIES: 2+ pulses, warm, well-perfused. No calf tenderness. No peripheral edema. NEUROLOGICAL: Cranial nerves II-XII intact. Normal speech. Gait not observed. PSYCHIATRIC: Cooperative. Good eye contact. Appropriate mood and affect. SKIN: Warm, dry, normal turgor, no rashes or lesions noted. Laboratory Results - last 24 hr 09/22/17 09/22/17 06:49 06:49 WBC 13.3 H RBC 2.68 L Hgb 8.5 L Hct 25.6 L MCV 95.7 MCH 31.8 MCHC 33.3 RDW 16.9 H Plt Count 345 D MPV 9.1 Neutrophils % 78.9 Lymphocytes % 8.6 D Monocytes % 10.5 H Eosinophils % 1.3 Basophils % 0.7 Sodium 140 Potassium 4.7 Chloride 112 H Carbon Dioxide 18 L Anion Gap 10 BUN 16 Creatinine 1.0 Creat Clearance w eGFR 57.56 Random Glucose 84 Calcium 7.9 L Phosphorus 2.7 Magnesium 2.2 Ferritin 901.498 H Total Bilirubin 0.4 AST 18 ALT 8 L Alkaline Phosphatase 205 H Total Protein 5.6 L Albumin 1.8 L Active Medications Generic Name Dose Route Start Last Admin Trade Name Freq PRN Reason Stop Dose Admin Chlordiazepoxide HCl 10 mg 09/22/17 12:45 Librium - PO 09/23/17 11:01 [id number] PRN WITHDRAWAL(CONT SUBST) Cyanocobalamin 1,000 mcg 09/20/17 10:00 09/22/17 09:55 Vitamin B12 - PO 1,000 mcg DAILY DK Administration Folic Acid 1 mg 09/20/17 10:00 09/22/17 09:55 Folic Acid - PO 1 mg DAILY DK Administration Furosemide 40 mg 09/22/17 18:00 Lasix Injection - IVPUSH BID@0600,1400 [facility] Heparin Sodium (Porcine) 5,000 unit 09/20/17 10:00 09/22/17 09:55 Heparin - SQ 5,000 unit BID DK Administration Ceftriaxone Sodium 1 gm/ 50 mls @ 100 mls/hr 09/20/17 12:15 09/22/17 09:56 Dextrose IVPB 100 mls/hr DAILY DK Administration Magnesium Chloride 128 mg 09/21/17 10:00 09/22/17 09:51 Slow-Mag - PO 128 mg DAILY DK Administration Nicotine 7 mg 09/23/17 15:15 Nicoderm Patch - TD DAILY DK Nicotine Polacrilex 2 mg 09/21/17 15:08 Nicorette Gum - BUC Q2H PRN NICOTINE REPLACEMENT RX Multivit/Folic Acid/Iron 1 tab 09/21/17 10:00 09/22/17 09:51 Vitamins (Sjr) - PO 1 tab DAILY DK Administration Sertraline HCl 50 mg 09/20/17 10:00 09/22/17 10:07 Zoloft - PO 50 mg DAILY DK Administration Sodium Bicarbonate 650 mg 09/21/17 16:45 09/22/17 11:30 Sodium Bicarbonate - PO 650 mg DAILY DK Administration Thiamine HCl 100 mg 09/21/17 22:00 09/21/17 22:19 Vitamin B1 - PO 100 mg HS DK Administration ASSESSMENT/PLAN: Respiratory: Worsening Hypoxia -Patient currently saturating in high 90's on venturi mask. Wean as tolerated -BiPAP to bedside as needed -Duonebs Cardiovascular: Mitral stenosis -Will involve CT surgery and interventional cardiology pending infectious process -NS to maintain BP / HR ID: Gram (-) bacteremia / UTI -Zosyn -repeat Blood culture -Tylenol for fever control PRN FEN: -as above -replete elctroltyes as needed -diet as tolerated PPX: -SQH Dispo: -We will continue to follow the patient. Thank you for this consultative opportunity. Visit type - Emergency Visit Emergency Visit: Yes ED Registration Date: 09/19/17 Care time: The patient presented to the Emergency Department on the above date and was hospitalized for further evaluation of their emergent condition. - New Patient This patient is new to me today: Yes Date on this admission: 09/22/17 - Critical Care Critical Care patient: Yes Total Critical Care Time (in minutes): 45 Critical Care Statement: The care of this patient involved high complexity decision making to prevent further life threatening deterioration of the patient 's condition and/or to evaluate & treat vital organ system(s) failure or risk of failure.
--- NOTE | 2017-09-22 15:39 | CON.ID ---
Consult Consult Specialty:: infectious diseases Referred by:: Reason for Consultation:: sepsis,uti,bactermia - History of Present Illness History of Present Illness: 56 yo female w/ pmh of HTN, MVR, CAD s/p CABG, and chronic alcohol abuse who initially presented to the ER 09/19 reporting a 1 week history of night sweats with tremors, shortness of breath, dyspnea on exertion, intermittent palpitations, chest tightness, fatigue, visual hallucinations on waking, and confusion after attempting alcohol cessation. She had previously been drinking 1 pint per day of vodka, last drink reported to be 09/12. In ER patient was noted to have tremors and HR to 120; CT revealed perinephric fat stranding and a UA revealed UTI. Patient was started on ceftriaxone and admitted for malnutrition. Ms. Carter was found to have gram negative bacteremia on urine culture. 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 the above history taken from the charts as patient is very lethargic anf confused and hypoxic and in icu and unable to give any history patient was initially started on ceftriaxone inspite of which she has grown bacteria in blood currently the patients condition is critical also the patient spiked a very high grade fever and we have send repeat cx now on ventimask patients urine was also positive for benzo - History Source History Provided By: Medical Record Limitations to Obtaining History: Clinical Condition - Past Medical History POOL LIFEGUARD: Yes: Seizure, Other (SDH) Cardio/Vascular: Yes: HTN, Hyperlipdemia Pulmonary: Yes: COPD Gastrointestinal: Yes: Pancreatitis ...LMP: 08/19/06 Psych: Yes: Addictions, Anxiety, Depression, Other (ETOH abuse) - Past Surgical History Past Surgical History: Yes: None (Craniotomy) - Alcohol/Substance Use Hx Alcohol Use: Yes - Smoking History Smoking history: Current every day smoker Have you smoked in the past 12 months: Yes Aproximately how many cigarettes per day: 20 - Social History ADL: Independent History of Recent Travel: No Home Medications - Allergies Allergies/Adverse Reactions: Allergies Allergy/AdvReac Type Severity Reaction Status Date / Time No Known Allergies Allergy Verified 09/19/17 11:16 - Home Medications Home Medications: Ambulatory Orders Amlodipine Besylate [Norvasc -] 10 mg PO DAILY #30 tablet 12/02/16 Sertraline HCl [Zoloft -] 50 mg PO DAILY #30 tablet 12/05/16 Cyanocobalamin [Vitamin B12 -] 1,000 mcg PO DAILY 01/31/17 Ferrous Sulfate 325 mg PO DAILY 01/31/17 Doxylamine Succinate [Sleep Aid] 25 mg PO HS 02/07/17 Gabapentin [Neurontin -] 200 mg PO HS 07/24/17 Naproxen [Naprosyn -] 500 mg PO BID 07/24/17 Thiamine Mononitrate [Vitamin B-1] 100 mg PO DAILY 07/24/17 Family Disease History - Family Disease History Family Disease History: Diabetes: Father, Mother, Brother Review of Systems Unable to obtain ROS, reason: unable to obtain Physical Exam Vital Signs: Vital Signs Temperature 102.3 F H 09/22/17 15:29 Pulse Rate 127 H 09/22/17 15:29 Respiratory Rate 18 09/22/17 15:29 Blood Pressure 124/77 09/22/17 15:29 O2 Sat by Pulse Oximetry (%) 97 09/22/17 08:07 Constitutional: Yes: Other (lethargic) Eyes: Yes: Conjunctiva Clear HENT: Yes: Atraumatic, Normocephalic Neck: Yes: Supple, Trachea Midline Cardiovascular: Yes: Regular Rate and Rhythm Respiratory: Yes: On Venti-Mask, Poor Air Entry Gastrointestinal: Yes: Normal Bowel Sounds, Soft Musculoskeletal: Yes: WNL Extremities: Yes: WNL Neurological: Yes: Confusion, Lethargy, Other Psychiatric: Yes: Other Labs: CBC, BMP 09/22/17 06:49 09/22/17 06:49 Imaging - Results Chest X-ray: Report Reviewed, Image Reviewed Cat Scan: Report Reviewed, Image Reviewed Assessment/Plan patient with gm negative bacteremia and uti currently lethargic and hypoxic gm negative bacteremia uti hypoxia lethargy drug abuse etoh abuse plan will start patient on zosyn repeat blood cx hydration if needed airway control resp support rest continue as per icu cc time 50 min
[2017-09-22] MEDS ORDERED: SODIUM CHLORIDE 1,000 ML IV STA (16:29)
[2017-09-22] MEDS ORDERED: ACETAMINOPHEN 1000 MG/100 ML VIAL (NON FORMULARY) IVPB ONE (16:30)
[2017-09-22] MEDS ORDERED: chlordiazePOXIDE 5 MG CAPSULE PO SCH ×2 (17:00)
[2017-09-22 17:30] LABS: ARTERIAL BLD GAS O2 SATURATION 94.9 % (90-98.9); ARTERIAL BLOOD GAS BASE EXCESS -5.6 meq/l (-2-2); ARTERIAL BLOOD GAS PCO2 27.9 mmHg (35-45); ARTERIAL BLOOD GAS PO2 74.5 mmHg (80-100); ARTERIAL BLOOD GAS pH 7.42 (7.35-7.45)
[2017-09-22 17:38] LABS: ALLENS TEST POSITIVE
[2017-09-22] MEDS ORDERED: ALBUTEROL SO4 2.5/IPRATROPIUM 0.5 INH SOL 3 ML VIAL.NEB. NEB PRN (17:44)
[2017-09-22 18:57] LABS: BASO % 0.3 % (0-2.0); EOS % 0.7 % (0-4.5); HEMATOCRIT 23.3 % (32.4-45.2); HEMOGLOBIN 7.8 GM/dL (10.7-15.3); LYMPH % 7.7 % (8-40); MCH 31.9 pg (25.7-33.7); MCHC 33.7 g/dl (32.0-36.0); MEAN CELL VOLUME 94.5 fl (80-96); MEAN PLT VOLUME 8.8 fl (7.5-11.1); MONO % 12.4 % (3.8-10.2); NEUT % 78.9 % (42.8-82.8); PLATELET COUNT 391 K/MM3 (134-434); RBC 2.46 M/mm3 (3.60-5.2); RDW 16.3 % (11.6-15.6); WHITE BLOOD COUNT 11.5 K/mm3 (4.0-10.0)
[2017-09-22] MEDS: FUROSEMIDE 40 MG/4 ML INJECTABLE VIAL IVPUSH SCH (19:12)
[2017-09-22] MEDS: PIPERACILLIN/TAZOB 3.375 GM 3.375 GM in DEXTROSE 5%-WATER - 50 ML IVPB SCH (19:12)
[2017-09-22 19:21] LABS: INR 1.26 (0.82-1.09); PROTHROMBIN TIME (PATIENT) 14.2 SEC (9.98-11.88)
[2017-09-22 19:26] LABS: MAGNESIUM 1.8 mg/dL (1.8-2.4); PHOSPHOROUS 2.4 mg/dL (2.5-4.9)
[2017-09-22 19:27] LABS: ALBUMIN 1.8 g/dl (3.4-5.0); ALK PHOS 208 U/L (45-117); ANION GAP 9 (8-16); BILIRUBIN,TOTAL 0.2 mg/dL (0.2-1.0); BLOOD UREA NITROGEN 17 mg/dL (7-18); CALCIUM 8.4 mg/dL (8.5-10.1); CHLORIDE 111 mmol/L (98-107); CO2 20 mmol/L (21-32); CREATININE 1.1 mg/dL (0.55-1.02); GLUCOSE,RANDOM 141 mg/dL (74-106); POTASSIUM 4.4 mmol/L (3.5-5.1); SGOT/AST 29 U/L (15-37); SGPT/ALT 14 U/L (12-78); SODIUM 140 mmol/L (136-145); TOT PROT 5.6 g/dl (6.4-8.2)
[2017-09-22] MEDS ORDERED: ALBUTEROL SO4 2.5/IPRATROPIUM 0.5 INH SOL 3 ML VIAL.NEB. NEB SCH (22:00)
--- NOTE | 2017-09-22 22:20 | CONSULT ---
Consult Consult Specialty:: Pulm/CCM Reason for Consultation:: Sepsis 2/2 bacteremia and UTI - History of Present Illness History of Present Illness: 56 danielle with PMHx of HTN, CAD ( s/p CABG), MVR, chronic EtoH abuse, who presented to the ED on 09/19 with tachycardia, and malaise d/t alcohol cessation( vodka1 pint/day) for [address] and [address] s/f pulmonary vascular congestion, pleural effusions and perinephric fat stranding. ECHO severe mitral stenosis possibly d/t scarring from resection of mitral valve fibroelastoma. Seen by cardiology. Started on gentle diuresis for CHF in the setting of tachycardia. Also started on Ceftriaxone for dirty UA. She was transferred to inpatient rehab for detox and malnutrition and started on a librium taper, multivitamins. While in rehab became increasingly somnolent and tachycardic. Sedatives were held with no improvement in neuro status. Readmitted to inpatient care with fever, tachycardia HR 120's, hypoxia and AMS. Culture work-up + for E-coli UTI and GNR bacteremia. WBC 11, Hgb 7.8,lactate 0.9. Antibiotics escalated to Zosyn by ID consult. Pt transferred to ICU for further management. In ICU rec'd lethargic but responsive. O2 sat97% on 50% venti-mask, HR 120's, BP 90's/60's. 1L fluid bolus given. HR to 84. 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, Other (SDH) Cardio/Vascular: Yes: HTN, Hyperlipdemia Pulmonary: Yes: COPD Gastrointestinal: Yes: Pancreatitis ...LMP: 08/19/06 Psych: Yes: Addictions, Anxiety, Depression, Other (ETOH abuse) - Past Surgical History Past Surgical History: Yes: None (Craniotomy) - Alcohol/Substance Use Hx Alcohol Use: Yes - Smoking History Smoking history: Current every day smoker Have you smoked in the past 12 months: Yes Aproximately how many cigarettes per day: 20 - Social History ADL: Independent History of Recent Travel: No Home Medications - Allergies Allergies/Adverse Reactions: Allergies Allergy/AdvReac Type Severity Reaction Status Date / Time No Known Allergies Allergy Verified 09/19/17 11:16 - Home Medications Home Medications: Ambulatory Orders Amlodipine Besylate [Norvasc -] 10 mg PO DAILY #30 tablet 12/02/16 Sertraline HCl [Zoloft -] 50 mg PO DAILY #30 tablet 12/05/16 Cyanocobalamin [Vitamin B12 -] 1,000 mcg PO DAILY 01/31/17 Ferrous Sulfate 325 mg PO DAILY 01/31/17 Doxylamine Succinate [Sleep Aid] 25 mg PO HS 02/07/17 Gabapentin [Neurontin -] 200 mg PO HS 07/24/17 Naproxen [Naprosyn -] 500 mg PO BID 07/24/17 Thiamine Mononitrate [Vitamin B-1] 100 mg PO DAILY 07/24/17 Family Disease History - Family Disease History Family Disease History: Diabetes: Father, Mother, Brother Review of Systems Unable to obtain ROS, reason: lethargic Physical Exam Vital Signs: Vital Signs Temperature 100.1 F H 09/22/17 16:00 Pulse Rate 105 H 09/22/17 18:00 Respiratory Rate 18 09/22/17 18:00 Blood Pressure 111/66 09/22/17 18:00 O2 Sat by Pulse Oximetry (%) 98 09/22/17 18:00 Constitutional: Yes: No Distress, Calm, Thin Eyes: Yes: Conjunctiva Clear, Other (pupils pin point) HENT: Yes: Atraumatic, Normocephalic Neck: Yes: Supple, Trachea Midline Cardiovascular: Yes: Regular Rate and Rhythm, S1, S2 Respiratory: Yes: On Venti-Mask, Rales Gastrointestinal: Yes: Normal Bowel Sounds, Soft Renal/: Yes: Helm Present, Other (white sediment) Extremities: Yes: WNL Edema: No Peripheral Pulses WNL: Yes Neurological: Yes: Cran Nerves II-XII Intact, Lethargy Labs: CBC, BMP 09/22/17 18:20 09/22/17 18:20 CBC,CMP WBC 11.5 K/mm3 (4.0-10.0) H 09/22/17 18:20 RBC 2.46 M/mm3 (3.60-5.2) L 09/22/17 18:20 Hgb 7.8 GM/dL (10.7-15.3) L 09/22/17 18:20 Hct 23.3 % (32.4-45.2) L 09/22/17 18:20 MCV 94.5 fl (80-96) 09/22/17 18:20 MCH 31.9 pg (25.7-33.7) 09/22/17 18:20 MCHC 33.7 g/dl (32.0-36.0) 09/22/17 18:20 RDW 16.3 % (11.6-15.6) H 09/22/17 18:20 Plt Count 391 K/MM3 (134-434) 09/22/17 18:20 MPV 8.8 fl (7.5-11.1) 09/22/17 18:20 Total Counted 100 09/19/17 12:25 Neutrophils % 78.9 % (42.8-82.8) 09/22/17 18:20 Neutrophils % (Manual) 77.0 % (42.8-82.8) 09/19/17 12:25 Band Neutrophils % 2.0 % 09/19/17 12:25 Lymphocytes % 7.7 % (8-40) L 09/22/17 18:20 Lymphocytes % (Manual) 8.0 % (8-40) 09/19/17 12:25 Monocytes % 12.4 % (3.8-10.2) H 09/22/17 18:20 Monocytes % (Manual) 13 % (3.8-10.2) H 09/19/17 12:25 Eosinophils % 0.7 % (0-4.5) 09/22/17 18:20 Basophils % 0.3 % (0-2.0) 09/22/17 18:20 Platelet Estimate Adequate 09/19/17 12:25 Sodium 140 mmol/L (136-145) 09/22/17 18:20 Potassium 4.4 mmol/L (3.5-5.1) 09/22/17 18:20 Chloride 111 mmol/L (98-107) H 09/22/17 18:20 Carbon Dioxide 20 mmol/L (21-32) L 09/22/17 18:20 Anion Gap 9 (8-16) 09/22/17 18:20 BUN 17 mg/dL (7-18) 09/22/17 18:20 Creatinine 1.1 mg/dL (0.55-1.02) H 09/22/17 18:20 Creat Clearance w eGFR 51.57 (>60) 03/30/18 18:20 Random Glucose 141 mg/dL (74-106) H 09/22/17 18:20 Lactic Acid 0.9 mmol/L (0.0-2.0) 09/22/17 18:20 Calcium 8.4 mg/dL (8.5-10.1) L 09/22/17 18:20 Phosphorus 2.4 mg/dL (2.5-4.9) L 09/22/17 18:20 Magnesium 1.8 mg/dL (1.8-2.4) 09/22/17 18:20 Ferritin 901.498 ng/ml (6.9-282.5) H 09/22/17 06:49 Total Bilirubin 0.2 mg/dL (0.2-1.0) D 09/22/17 18:20 AST 29 U/L (15-37) 09/22/17 18:20 ALT 14 U/L (12-78) 09/22/17 18:20 Alkaline Phosphatase 208 U/L (45-117) H 09/22/17 18:20 Creatine Kinase 14 IU/L (26-192) L 09/21/17 00:45 Troponin I < 0.02 ng/ml (0.00-0.05) 09/21/17 00:45 B-Natriuretic Peptide 4237.14 pg/ml (5-125) H 09/19/17 12:25 Total Protein 5.6 g/dl (6.4-8.2) L 09/22/17 18:20 Albumin 1.8 g/dl (3.4-5.0) L 09/22/17 18:20 Lipase 59 U/L (73-393) L 09/19/17 12:45 Current Medications Albuterol/Ipratropium (Duoneb -) 1 amp NEB Q12H PRN PRN Reason: WHEEZING Last Admin: 09/22/17 19:56 Dose: 1 amp Chlordiazepoxide HCl (Librium -) 10 mg PO [id number] PRN PRN Reason: WITHDRAWAL(CONT SUBST) Stop: 09/23/17 11:01 Cyanocobalamin (Vitamin B12 -) 1,000 mcg PO DAILY DK Last Admin: 09/22/17 09:55 Dose: 1,000 mcg Folic Acid (Folic Acid -) 1 mg PO DAILY DK Last Admin: 09/22/17 09:55 Dose: 1 mg Furosemide (Lasix Injection -) 40 mg IVPUSH BID@0600,1400 [facility] Last Admin: 09/22/17 19:12 Dose: Not Given Heparin Sodium (Porcine) (Heparin -) 5,000 unit SQ BID [facility] Last Admin: 09/22/17 23:03 Dose: 5,000 unit Piperacillin Sod/Tazobactam (Sod 3.375 gm/ Dextrose) 50 mls @ 100 mls/hr IVPB Q8H-IV DK PRN Reason: Protocol Last Admin: 09/22/17 19:12 Dose: 100 mls/hr Magnesium Chloride (Slow-Mag -) 128 mg PO DAILY [facility] Last Admin: 09/22/17 09:51 Dose: 128 mg Nicotine (Nicoderm Patch -) 7 mg TD DAILY [facility] Nicotine Polacrilex (Nicorette Gum -) 2 mg BUC Q2H PRN PRN Reason: NICOTINE REPLACEMENT RX Multivit/Folic Acid/Iron ( Vitamins (Sjr) -) 1 tab PO DAILY [facility] Last Admin: 09/22/17 09:51 Dose: 1 tab Sertraline HCl (Zoloft -) 50 mg PO DAILY [facility] Last Admin: 09/22/17 10:07 Dose: 50 mg Sodium Bicarbonate (Sodium Bicarbonate -) 650 mg PO DAILY [facility] Last Admin: 09/22/17 11:30 Dose: 650 mg Thiamine HCl (Vitamin B1 -) 100 mg PO HS [facility] Last Admin: 09/22/17 23:03 Dose: Not Given Microbiology 09/19/17 12:45 Blood Culture - Preliminary Blood - Peripheral Venous NO GROWTH OBTAINED AFTER 72 HOURS, INCUBATION TO CONTINUE FOR 2 DAYS. 09/19/17 18:50 Urine Culture - Final Urine - Urine - Catheterized Escherichia Coli 09/19/17 13:32 Blood Culture - Preliminary Blood - Peripheral Venous Lactose Fermenting Neg Bacilli Imaging - Results Chest X-ray: Report Reviewed Cat Scan: Report Reviewed EKG: Report Reviewed Problem List - Problems (1) ARF (acute renal failure) Code(s): N17.9 - ACUTE KIDNEY FAILURE, UNSPECIFIED (2) Alcohol withdrawal Code(s): F10.239 - ALCOHOL DEPENDENCE WITH WITHDRAWAL, UNSPECIFIED (3) Anemia Code(s): D64.9 - ANEMIA, UNSPECIFIED (4) Pyelonephritis Code(s): N12 - TUBULO-INTERSTITIAL NEPHRITIS, NOT SPCF ACUTE OR CHRONIC (5) Tachycardia Code(s): R00.0 - TACHYCARDIA, UNSPECIFIED (6) Alcohol dependence with uncomplicated withdrawal Code(s): F10.230 - ALCOHOL DEPENDENCE WITH WITHDRAWAL, UNCOMPLICATED (7) Cachexia Code(s): R64 - CACHEXIA (8) Malnutrition Code(s): E46 - UNSPECIFIED PROTEIN-CALORIE MALNUTRITION Assessment/Plan 56 danielle with PMHx of HTN, CAD ( s/p CABG), MVR, chronic EtoH abuse, who presented to the ED on 09/19 with tachycardia, and malaise d/t alcohol withdrawal. Hospital course c/b sepsis 2/2 GNR bacteremia and E-coli UTI, hypoxia in the setting of sepsis +/- fluid overload/CHF exacerbation and pleural effusion and DANIS Plan: -O2 support with ventimask for O2 sat>92% wean as tolerated -Pulmonary toliet -Aspiration precautions with AMS -Cardiology consult -Would hold diuretic until sepsis resolves -HD monitoring -Gentle fluid boluses as needed for MAP>60, vasodilated with sepsis -Trend BNP, lactate -Hold antihypertensives for now -Cardiac surgery consult for mitral valve repair -F/u cultures -Cont empiric Zosyn for broad coverage -Monitor UOP and BMP -renal dose meds -Diet as hola -cont multivits, Fe supplement -DVT prohylaxis AMADA Sibley CC time 35mins
[2017-09-22] MEDS: THIAMINE HCL 100 MG TABLET (FP) PO SCH (23:03)
--- NOTE | 2017-09-23 00:56 | PN ---
Progress Note, Physician - Current Medication List Current Medications: Active Medications Albuterol/Ipratropium (Duoneb -) 1 amp NEB Q12H PRN PRN Reason: WHEEZING Last Admin: 09/22/17 19:56 Dose: 1 amp Chlordiazepoxide HCl (Librium -) 10 mg PO [id number] PRN PRN Reason: WITHDRAWAL(CONT SUBST) Stop: 09/23/17 11:01 Cyanocobalamin (Vitamin B12 -) 1,000 mcg PO DAILY DK Last Admin: 09/22/17 09:55 Dose: 1,000 mcg Folic Acid (Folic Acid -) 1 mg PO DAILY DK Last Admin: 09/22/17 09:55 Dose: 1 mg Furosemide (Lasix Injection -) 40 mg IVPUSH BID@0600,1400 DK Last Admin: 09/22/17 19:12 Dose: Not Given Heparin Sodium (Porcine) (Heparin -) 5,000 unit SQ BID DK Last Admin: 09/22/17 23:03 Dose: 5,000 unit Piperacillin Sod/Tazobactam (Sod 3.375 gm/ Dextrose) 50 mls @ 100 mls/hr IVPB Q8H-IV DK PRN Reason: Protocol Last Admin: 09/22/17 19:12 Dose: 100 mls/hr Magnesium Chloride (Slow-Mag -) 128 mg PO DAILY [facility] Last Admin: 09/22/17 09:51 Dose: 128 mg Nicotine (Nicoderm Patch -) 7 mg TD DAILY [facility] Nicotine Polacrilex (Nicorette Gum -) 2 mg BUC Q2H PRN PRN Reason: NICOTINE REPLACEMENT RX Multivit/Folic Acid/Iron ( Vitamins (Sjr) -) 1 tab PO DAILY [facility] Last Admin: 09/22/17 09:51 Dose: 1 tab Sertraline HCl (Zoloft -) 50 mg PO DAILY [facility] Last Admin: 09/22/17 10:07 Dose: 50 mg Sodium Bicarbonate (Sodium Bicarbonate -) 650 mg PO DAILY [facility] Last Admin: 09/22/17 11:30 Dose: 650 mg Thiamine HCl (Vitamin B1 -) 100 mg PO HS [facility] Last Admin: 09/22/17 23:03 Dose: Not Given - Objective Vital Signs: Vital Signs Temperature 100.1 F H 09/22/17 16:00 Pulse Rate 105 H 09/22/17 18:00 Respiratory Rate 20 09/22/17 21:00 Blood Pressure 111/66 09/22/17 18:00 O2 Sat by Pulse Oximetry (%) 98 09/22/17 22:00 Labs: CBC, BMP 09/22/17 18:20 09/22/17 18:20 INR, PTT INR 1.26 (0.82-1.09) H 09/22/17 18:20 Problem List - Problems (1) Alcohol withdrawal Code(s): F10.239 - ALCOHOL DEPENDENCE WITH WITHDRAWAL, UNSPECIFIED (2) Pyelonephritis Code(s): N12 - TUBULO-INTERSTITIAL NEPHRITIS, NOT SPCF ACUTE OR CHRONIC (3) Tachycardia Code(s): R00.0 - TACHYCARDIA, UNSPECIFIED (4) ARF (acute renal failure) Code(s): N17.9 - ACUTE KIDNEY FAILURE, UNSPECIFIED (5) HTN (hypertension) Code(s): I10 - ESSENTIAL (PRIMARY) HYPERTENSION (6) HLD (hyperlipidemia) Code(s): E78.5 - HYPERLIPIDEMIA, UNSPECIFIED (7) COPD (chronic obstructive pulmonary disease) Code(s): J44.9 - CHRONIC OBSTRUCTIVE PULMONARY DISEASE, UNSPECIFIED (8) Anemia Code(s): D64.9 - ANEMIA, UNSPECIFIED (9) Cachexia Code(s): R64 - CACHEXIA (10) Anxiety and depression Code(s): F41.9 - ANXIETY DISORDER, UNSPECIFIED; F32.9 - MAJOR DEPRESSIVE DISORDER, SINGLE EPISODE, UNSPECIFIED
[2017-09-23] MEDS: PIPERACILLIN/TAZOB 3.375 GM 3.375 GM in DEXTROSE 5%-WATER - 50 ML IVPB SCH ×3 (01:49→18:14)
[2017-09-23 06:15] LABS: SERUM IRON SATURATION 10 % (15-55); TOTAL IRON BINDING CAPACITY 143 ug/dL (250-450); UIBC 129 ug/dL (131-425)
[2017-09-23 06:33] LABS: BASO % 0.2 % (0-2.0); EOS % 0.8 % (0-4.5); HEMATOCRIT 23.4 % (32.4-45.2); HEMOGLOBIN 8.1 GM/dL (10.7-15.3); LYMPH % 4.9 % (8-40); MCH 32.8 pg (25.7-33.7); MCHC 34.7 g/dl (32.0-36.0); MEAN CELL VOLUME 94.3 fl (80-96); MEAN PLT VOLUME 8.7 fl (7.5-11.1); MONO % 7.7 % (3.8-10.2); NEUT % 86.4 % (42.8-82.8); PLATELET COUNT 411 K/MM3 (134-434); RBC 2.48 M/mm3 (3.60-5.2); RDW 15.9 % (11.6-15.6); WHITE BLOOD COUNT 14.5 K/mm3 (4.0-10.0)
[2017-09-23] MEDS: FUROSEMIDE 40 MG/4 ML INJECTABLE VIAL IVPUSH SCH ×2 (06:37→14:08)
[2017-09-23 07:01] LABS: ALBUMIN 1.9 g/dl (3.4-5.0); ANION GAP 6 (8-16); BLOOD UREA NITROGEN 16 mg/dL (7-18); CALCIUM 8.4 mg/dL (8.5-10.1); CHLORIDE 111 mmol/L (98-107); CO2 23 mmol/L (21-32); GLUCOSE,RANDOM 121 mg/dL (74-106); MAGNESIUM 1.5 mg/dL (1.8-2.4); POTASSIUM 4.3 mmol/L (3.5-5.1); SODIUM 140 mmol/L (136-145)
[2017-09-23 07:06] LABS: ALK PHOS 192 U/L (45-117); BILIRUBIN,TOTAL 0.3 mg/dL (0.2-1.0); CREATININE 1.1 mg/dL (0.55-1.02); N-TERMINAL BNP 2502.59 pg/ml (5-125); SGOT/AST 18 U/L (15-37); SGPT/ALT 15 U/L (12-78); TOT PROT 5.8 g/dl (6.4-8.2)
--- NOTE | 2017-09-23 08:41 | PN ---
Progress Note, Physician Chief Complaint: Pt lethargic (reportedly more alert and conversant an hour ago); moves all limbs weakly on request; c/o back pain; denies chest pain, dyspnea. History of Present Illness: 56 yo black woman with h/o HTN, CAD ( s/p CABG), bioprosthetic MVR, diastolic CHF, chronic EtoH abuse, who presents with tachycardia. Patient reports one week of night sweats, increased confusion, tremors, SOB, BL chest tightness, and fatigue following home attempt at alcohol cessation. Chest pressure slightly improved and left sided with absent radiation. Reports Roque, and pleuritic chest pain. Also complains of visual hallucinations upon awakening. + chronic cough. 2 days of palpitations occurring intermittently, with no identifiable trigger or alleviators. Tobacco use 1/2 ppd 20 + years. 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 Denies F/C , hemoptysis, wheezing, abdominal pain, diarrhea, constipation, lightheadedness , weakness, sensory changes, or convulsions. This AM patient went to outpt. rehab seeking medication treatment for withdrawal, but sent to ED d/t tachycardia ~120 on triage vitals. Currently not being treated for withdrawal. Denies recent travel or immobilization, h/o PE/DVT, hormone use, trauma or surgery within past 6 weeks, or h/o malignancy. - Current Medication List Current Medications: Active Medications Albuterol/Ipratropium (Duoneb -) 1 amp NEB Q12H PRN PRN Reason: WHEEZING Last Admin: 09/22/17 19:56 Dose: 1 amp Chlordiazepoxide HCl (Librium -) 10 mg PO [id number] PRN PRN Reason: WITHDRAWAL(CONT SUBST) Stop: 09/23/17 11:01 Cyanocobalamin (Vitamin B12 -) 1,000 mcg PO DAILY [facility] Last Admin: 09/22/17 09:55 Dose: 1,000 mcg Folic Acid (Folic Acid -) 1 mg PO DAILY DK Last Admin: 09/22/17 09:55 Dose: 1 mg Furosemide (Lasix Injection -) 40 mg IVPUSH BID@0600,1400 DK Last Admin: 09/23/17 06:37 Dose: 40 mg Heparin Sodium (Porcine) (Heparin -) 5,000 unit SQ BID DK Last Admin: 09/22/17 23:03 Dose: 5,000 unit Piperacillin Sod/Tazobactam (Sod 3.375 gm/ Dextrose) 50 mls @ 100 mls/hr IVPB Q8H-IV DK PRN Reason: Protocol Last Admin: 09/23/17 01:49 Dose: 100 mls/hr Magnesium Chloride (Slow-Mag -) 128 mg PO DAILY [facility] Last Admin: 09/22/17 09:51 Dose: 128 mg Nicotine (Nicoderm Patch -) 7 mg TD DAILY [facility] Nicotine Polacrilex (Nicorette Gum -) 2 mg BUC Q2H PRN PRN Reason: NICOTINE REPLACEMENT RX Multivit/Folic Acid/Iron ( Vitamins (Sjr) -) 1 tab PO DAILY [facility] Last Admin: 09/22/17 09:51 Dose: 1 tab Sertraline HCl (Zoloft -) 50 mg PO DAILY [facility] Last Admin: 09/22/17 10:07 Dose: 50 mg Sodium Bicarbonate (Sodium Bicarbonate -) 650 mg PO DAILY [facility] Last Admin: 09/22/17 11:30 Dose: 650 mg Thiamine HCl (Vitamin B1 -) 100 mg PO HS [facility] Last Admin: 09/22/17 23:03 Dose: Not Given - Objective Vital Signs: Vital Signs Temperature 98.7 F 09/23/17 06:50 Pulse Rate 102 H 09/23/17 06:00 Respiratory Rate 20 09/23/17 06:00 Blood Pressure 100/57 09/23/17 06:00 O2 Sat by Pulse Oximetry (%) 98 09/22/17 22:00 Constitutional: Yes: Thin, Other (lethargic) Cardiovascular: Yes: Tachycardia, Murmur (2/4 diastolic murmur, LSB-->base), S1 , S2 Respiratory: Yes: Diminished Gastrointestinal: Yes: Soft ...Rectal Exam: Yes: Deferred Genitourinary: No: Anuria Breast(s): Yes: WNL Musculoskeletal: Yes: Muscle Weakness Extremities: Yes: Cool Edema: Yes Edema: LLE: Trace, RLE: Trace Peripheral Pulses WNL: Yes Integumentary: Yes: WNL Neurological: Yes: Lethargy, Weakness Psychiatric: Yes: Other Labs: CBC, BMP 09/23/17 06:03 09/23/17 06:03 INR, PTT INR 1.26 (0.82-1.09) H 09/22/17 18:20 - ....Imaging Chest X-ray: Image Reviewed (CHF: mild right-sided improvement) Problem List - Problems (1) History of mitral valve prosthesis Assessment/Plan: significant functional mitral stenosis (mean gradient 15 mmHg). (2) Alcohol withdrawal Code(s): F10.239 - ALCOHOL DEPENDENCE WITH WITHDRAWAL, UNSPECIFIED (3) Anemia Assessment/Plan: f/u serially Code(s): D64.9 - ANEMIA, UNSPECIFIED (4) Anxiety and depression Code(s): F41.9 - ANXIETY DISORDER, UNSPECIFIED; F32.9 - MAJOR DEPRESSIVE DISORDER, SINGLE EPISODE, UNSPECIFIED (5) COPD (chronic obstructive pulmonary disease) Code(s): J44.9 - CHRONIC OBSTRUCTIVE PULMONARY DISEASE, UNSPECIFIED (6) HLD (hyperlipidemia) Code(s): E78.5 - HYPERLIPIDEMIA, UNSPECIFIED (7) HTN (hypertension) Code(s): I10 - ESSENTIAL (PRIMARY) HYPERTENSION (8) Hypokalemia Code(s): E87.6 - HYPOKALEMIA (9) Malnutrition Code(s): E46 - UNSPECIFIED PROTEIN-CALORIE MALNUTRITION (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 Code(s): F15.10 - OTHER STIMULANT ABUSE, UNCOMPLICATED (11) Nicotine dependence Assessment/Plan: on nicoderm patch Code(s): F17.200 - NICOTINE DEPENDENCE, UNSPECIFIED, UNCOMPLICATED Qualifiers: Nicotine product type: cigarettes Substance use status: uncomplicated Qualified Code(s): F17.210 - Nicotine dependence, cigarettes, uncomplicated (12) Weight loss Code(s): R63.4 - ABNORMAL WEIGHT LOSS (13) Hypomagnesemia Assessment/Plan: replete; keep 2-2.3 Keep K 4-4.5 Keep PO4 2.5-3.5 Code(s): E83.42 - HYPOMAGNESEMIA (14) Acute on chronic diastolic (congestive) heart failure Assessment/Plan: Continue minimal fluids, IV furosemide. Is and Os, daily Is and Os, BUN/Cr, electrolytes (replete Mg). CXR pending. Code(s): I50.33 - ACUTE ON CHRONIC DIASTOLIC (CONGESTIVE) HEART FAILURE
[2017-09-23] MEDS ORDERED: PT OWN MED DRAWER 7, Y5N ONE ×2 (09:30→17:48)
[2017-09-23] MEDS ORDERED: MAGNESIUM 4GM/H20 - 4 GM/100 ML IVPB IVPB ONE (09:30)
[2017-09-23] MEDS: FOLIC ACID 1 MG TABLET (FP) PO SCH (09:57)
[2017-09-23] MEDS: PRENATAL VITAMINS W/ FOLIC ACID TABLET (FP) PO SCH (09:57)
[2017-09-23] MEDS: HEPARIN NA (PORCINE) 5,000 UNITS/ML 1ML VIAL SQ SCH ×2 (09:58→21:53)
[2017-09-23] MEDS: MAGNESIUM CL 64 MG TABLET.SA PO SCH (09:59)
[2017-09-23] MEDS: SODIUM BICARBONATE 650 MG TABLET PO SCH (09:59)
[2017-09-23] MEDS: SERTRALINE HCL 50 MG TABLET (FP) PO SCH (09:59)
[2017-09-23] MEDS: CYANOCOBALAMIN 1,000 MCG TABLET (FP) PO SCH (09:59)
[2017-09-23] MEDS ORDERED: NICOTINE 7 MG/24 HOURS TOPICAL PATCH TD SCH (10:00)
--- NOTE | 2017-09-23 11:00 | PN ---
Progress Note (short form) - Note Progress Note: PULMONARY/CCM Pt seen and examined in the ICU. More alert, awake. Fever curve trending down. Mild shortness of breath. Last Vital Signs Temp Pulse Resp BP Pulse Ox 98.7 F 102 H 20 100/57 98 09/23/17 06:50 09/23/17 06:00 09/23/17 09:00 09/23/17 06:00 09/23/17 09:14 Intake & Output 09/20/17 09/21/17 09/22/17 09/23/17 23:59 23:59 23:59 23:59 Intake Total 1210 2100 Output Total 180 950 Balance 1210 1920 -950 Weight 49.895 kg Gen: mildly tachypneic at rest Heart: tachycardic, regular Lung: decreased breath sounds at the bases Abd: soft, nontender Ext: no edema CBC, BMP 09/23/17 06:03 09/23/17 06:03 Active Medications Albuterol/Ipratropium (Duoneb -) 1 amp NEB Q12H PRN PRN Reason: WHEEZING Last Admin: 09/22/17 19:56 Dose: 1 amp Chlordiazepoxide HCl (Librium -) 10 mg PO [id number] PRN PRN Reason: WITHDRAWAL(CONT SUBST) Stop: 09/23/17 11:01 Cyanocobalamin (Vitamin B12 -) 1,000 mcg PO DAILY [facility] Last Admin: 09/23/17 09:59 Dose: 1,000 mcg Folic Acid (Folic Acid -) 1 mg PO DAILY [facility] Last Admin: 09/23/17 09:57 Dose: 1 mg Furosemide (Lasix Injection -) 40 mg IVPUSH BID@0600,1400 [facility] Last Admin: 09/23/17 06:37 Dose: 40 mg Heparin Sodium (Porcine) (Heparin -) 5,000 unit SQ BID [facility]K Last Admin: 09/23/17 09:58 Dose: 5,000 unit Piperacillin Sod/Tazobactam (Sod 3.375 gm/ Dextrose) 50 mls @ 100 mls/hr IVPB Q8H-IV DK PRN Reason: Protocol Last Admin: 09/23/17 09:55 Dose: 100 mls/hr Magnesium Chloride (Slow-Mag -) 128 mg PO DAILY [facility] Last Admin: 09/23/17 09:59 Dose: Not Given Nicotine (Nicoderm Patch -) 7 mg TD DAILY [facility] Last Admin: 09/23/17 09:57 Dose: 7 mg Nicotine Polacrilex (Nicorette Gum -) 2 mg BUC Q2H PRN PRN Reason: NICOTINE REPLACEMENT RX Multivit/Folic Acid/Iron ( Vitamins (Sjr) -) 1 tab PO DAILY [facility] Last Admin: 09/23/17 09:57 Dose: 1 tab Sertraline HCl (Zoloft -) 50 mg PO DAILY [facility] Last Admin: 09/23/17 09:59 Dose: 50 mg Sodium Bicarbonate (Sodium Bicarbonate -) 650 mg PO DAILY [facility] Last Admin: 09/23/17 09:59 Dose: 650 mg Thiamine HCl (Vitamin B1 -) 100 mg PO [facility] Last Admin: 09/22/17 23:03 Dose: Not Given A/P Altered Mental Status improved UTI Gram Negative Bacteremia Sepsis Acute Kidney Injury improving CAD s/p CABG h/o MVR Pulmonary HTN Acute on Chronic LV Diastolic Heart Failure Alcohol Abuse - continue antibiotics - f/u cultures - lasix - monitor urine output, creatinine - O2 to keep SpO2 >90% - librium as needed - DVT prophylaxis - can monitor on floor critical care time spent in revieiwing chart, evaluating patient and formulating plan 35 min
--- NOTE | 2017-09-23 14:47 | PN ---
Progress Note, Physician History of Present Illness: Pt seen and examined. Events noted, labs reviewed. Pt is alert but remains weak , with recent fevers and wbc trending up. She currently denies chills, shortness of breath/cough, chest pain, n/v/d, or dysuria. - Current Medication List Current Medications: Active Medications Albuterol/Ipratropium (Duoneb -) 1 amp NEB Q12H PRN PRN Reason: WHEEZING Last Admin: 09/22/17 19:56 Dose: 1 amp Cyanocobalamin (Vitamin B12 -) 1,000 mcg PO DAILY DK Last Admin: 09/23/17 09:59 Dose: 1,000 mcg Folic Acid (Folic Acid -) 1 mg PO DAILY DK Last Admin: 09/23/17 09:57 Dose: 1 mg Furosemide (Lasix Injection -) 40 mg IVPUSH BID@0600,1400 DK Last Admin: 09/23/17 14:08 Dose: 40 mg Heparin Sodium (Porcine) (Heparin -) 5,000 unit SQ BID DK Last Admin: 09/23/17 09:58 Dose: 5,000 unit Piperacillin Sod/Tazobactam (Sod 3.375 gm/ Dextrose) 50 mls @ 100 mls/hr IVPB Q8H-IV DK PRN Reason: Protocol Last Admin: 09/23/17 09:55 Dose: 100 mls/hr Magnesium Chloride (Slow-Mag -) 128 mg PO DAILY [facility] Last Admin: 09/23/17 09:59 Dose: Not Given Nicotine (Nicoderm Patch -) 7 mg TD DAILY [facility] Last Admin: 09/23/17 09:57 Dose: 7 mg Nicotine Polacrilex (Nicorette Gum -) 2 mg BUC Q2H PRN PRN Reason: NICOTINE REPLACEMENT RX Multivit/Folic Acid/Iron ( Vitamins (Sjr) -) 1 tab PO DAILY DK Last Admin: 09/23/17 09:57 Dose: 1 tab Sertraline HCl (Zoloft -) 50 mg PO DAILY DK Last Admin: 09/23/17 09:59 Dose: 50 mg Sodium Bicarbonate (Sodium Bicarbonate -) 650 mg PO DAILY DK Last Admin: 09/23/17 09:59 Dose: 650 mg Thiamine HCl (Vitamin B1 -) 100 mg PO HS DK Last Admin: 09/22/17 23:03 Dose: Not Given - Objective Vital Signs: Vital Signs Temperature 99 F 09/23/17 08:00 Pulse Rate 103 H 09/23/17 12:00 Respiratory Rate 25 H 09/23/17 12:00 Blood Pressure 97/62 09/23/17 12:00 O2 Sat by Pulse Oximetry (%) 98 09/23/17 09:14 Constitutional: Yes: No Distress Cardiovascular: Yes: Tachycardia Respiratory: Yes: Regular Gastrointestinal: Yes: Normal Bowel Sounds, Soft Genitourinary: Yes: WNL Extremities: Yes: WNL Integumentary: Yes: WNL Neurological: Yes: Alert, Weakness Labs: CBC, BMP 09/23/17 06:03 09/23/17 06:03 INR, PTT INR 1.26 (0.82-1.09) H 09/22/17 18:20 Microbiology 09/19/17 12:45 Blood - Peripheral Venous Blood Culture - Preliminary NO GROWTH OBTAINED AFTER 96 HOURS, INCUBATION TO CONTINUE FOR 1 DAYS. 09/19/17 13:32 Blood - Peripheral Venous Blood Culture - Final Escherichia Coli 09/19/17 18:50 Urine - Urine - Catheterized Urine Culture - Final Escherichia Coli - ....Imaging Chest X-ray: Report Reviewed Problem List - Problems (1) Acute on chronic diastolic (congestive) heart failure Code(s): I50.33 - ACUTE ON CHRONIC DIASTOLIC (CONGESTIVE) HEART FAILURE (2) Alcohol withdrawal Code(s): F10.239 - ALCOHOL DEPENDENCE WITH WITHDRAWAL, UNSPECIFIED (3) Anemia Code(s): D64.9 - ANEMIA, UNSPECIFIED (4) COPD (chronic obstructive pulmonary disease) Code(s): J44.9 - CHRONIC OBSTRUCTIVE PULMONARY DISEASE, UNSPECIFIED (5) HLD (hyperlipidemia) Code(s): E78.5 - HYPERLIPIDEMIA, UNSPECIFIED (6) Tachycardia Code(s): R00.0 - TACHYCARDIA, UNSPECIFIED (7) Malnutrition Code(s): E46 - UNSPECIFIED PROTEIN-CALORIE MALNUTRITION (8) Nicotine dependence Code(s): F17.200 - NICOTINE DEPENDENCE, UNSPECIFIED, UNCOMPLICATED Qualifiers: Nicotine product type: cigarettes Substance use status: uncomplicated Qualified Code(s): F17.210 - Nicotine dependence, cigarettes, uncomplicated Assessment/Plan 56 yo female with PMH of HTN, MVR, CAD s/p CABG, and chronic alcohol abuse with recent alcohol withdrawal initially on Ceftriaxone for UTI noted to become lethargic, tachycardic, febrile, and hypoxic . Currently in ICU. E. coli UTI/Bacteremia Sepsis Pulmonary atelectasis vs consolidations -- continue Zosyn for now -- f/u repeat blood culture results -- monitor wbc, temp trends -- continue rest of care per ICU cc time: 40 min
--- NOTE | 2017-09-23 17:23 | PN ---
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 strong family history of CKD Current Medications Albuterol/Ipratropium (Duoneb -) 1 amp NEB Q12H PRN PRN Reason: WHEEZING Last Admin: 09/22/17 19:56 Dose: 1 amp Cyanocobalamin (Vitamin B12 -) 1,000 mcg PO DAILY [facility] Last Admin: 09/23/17 09:59 Dose: 1,000 mcg Folic Acid (Folic Acid -) 1 mg PO DAILY [facility] Last Admin: 09/23/17 09:57 Dose: 1 mg Furosemide (Lasix Injection -) 40 mg IVPUSH BID@0600,1400 [facility] Last Admin: 09/23/17 14:08 Dose: 40 mg Heparin Sodium (Porcine) (Heparin -) 5,000 unit SQ BID DK Last Admin: 09/23/17 09:58 Dose: 5,000 unit Piperacillin Sod/Tazobactam (Sod 3.375 gm/ Dextrose) 50 mls @ 100 mls/hr IVPB Q8H-IV DK PRN Reason: Protocol Last Admin: 09/23/17 09:55 Dose: 100 mls/hr Magnesium Chloride (Slow-Mag -) 128 mg PO DAILY [facility] Last Admin: 09/23/17 09:59 Dose: Not Given Nicotine (Nicoderm Patch -) 7 mg TD DAILY [facility] Last Admin: 09/23/17 09:57 Dose: 7 mg Nicotine Polacrilex (Nicorette Gum -) 2 mg BUC Q2H PRN PRN Reason: NICOTINE REPLACEMENT RX Multivit/Folic Acid/Iron ( Vitamins (Sjr) -) 1 tab PO DAILY DK Last Admin: 09/23/17 09:57 Dose: 1 tab Sertraline HCl (Zoloft -) 50 mg PO DAILY [facility] Last Admin: 09/23/17 09:59 Dose: 50 mg Sodium Bicarbonate (Sodium Bicarbonate -) 650 mg PO DAILY [facility]K Last Admin: 09/23/17 09:59 Dose: 650 mg Thiamine HCl (Vitamin B1 -) 100 mg PO HS DK Last Admin: 09/22/17 23:03 Dose: Not Given Last Vital Signs Temp Pulse Resp BP Pulse Ox 99 F 103 H 25 H 97/62 98 09/23/17 08:00 09/23/17 12:00 09/23/17 12:00 09/23/17 12:00 09/23/17 09:14 lethargic but responsive verbally Lungs clear Heart reg Abd soft nontender ext no edema CBC, BMP 09/23/17 06:03 09/23/17 06:03 DANIS (baseline Cr 0.6) -volume depletion, radiocontrast -Hyponatremia resolved -Mild pulmonary congestion on imaging -Metabolic acidosis (non-anion gap)- resolved -ETOH abuse/withdrawal -s/p Hypokalemia - resolved -Adrenal Lesion -Suspected Pylonephritis -Renal function stable, however not yet at baseline s/p fluid overload,(congestion on CXR) and respiratory distress
[2017-09-23] MEDS ORDERED: NICOTINE POLACRILEX 2 MG GUM BUC PRN (18:02)
[2017-09-23] MEDS: THIAMINE HCL 100 MG TABLET (FP) PO SCH (21:55)
[2017-09-24] MEDS: PIPERACILLIN/TAZOB 3.375 GM 3.375 GM in DEXTROSE 5%-WATER - 50 ML IVPB SCH ×3 (01:09→17:54)
[2017-09-24] MEDS: FUROSEMIDE 40 MG/4 ML INJECTABLE VIAL IVPUSH SCH ×2 (05:38→14:00)
[2017-09-24 06:08] LABS: BASO % 0.4 % (0-2.0); HEMATOCRIT 23.9 % (32.4-45.2); HEMOGLOBIN 8.3 GM/dL (10.7-15.3); LYMPH % 12.9 % (8-40); MCH 32.4 pg (25.7-33.7); MCHC 34.6 g/dl (32.0-36.0); MEAN CELL VOLUME 93.7 fl (80-96); MEAN PLT VOLUME 8.2 fl (7.5-11.1); MONO % 9.9 % (3.8-10.2); NEUT % 75.8 % (42.8-82.8); PLATELET COUNT 483 K/MM3 (134-434); RBC 2.56 M/mm3 (3.60-5.2); RDW 15.7 % (11.6-15.6)
[2017-09-24 06:31] LABS: ANION GAP 9 (8-16); BLOOD UREA NITROGEN 21 mg/dL (7-18); CALCIUM 8.3 mg/dL (8.5-10.1); CHLORIDE 102 mmol/L (98-107); CO2 25 mmol/L (21-32); GLUCOSE,RANDOM 106 mg/dL (74-106); MAGNESIUM 2.3 mg/dL (1.8-2.4); POTASSIUM 4.4 mmol/L (3.5-5.1); SODIUM 136 mmol/L (136-145)
[2017-09-24 06:36] LABS: ALK PHOS 171 U/L (45-117); BILIRUBIN,TOTAL 0.3 mg/dL (0.2-1.0); CREATININE 1.1 mg/dL (0.55-1.02); PHOSPHOROUS 3.5 mg/dL (2.5-4.9); SGOT/AST 24 U/L (15-37); SGPT/ALT 19 U/L (12-78); TOT PROT 6.2 g/dl (6.4-8.2)
[2017-09-24] MEDS ORDERED: PT OWN MED DRAWER 7, Y5N ONE ×4 (10:11→17:50)
[2017-09-24] MEDS: SERTRALINE HCL 50 MG TABLET (FP) PO SCH (10:21)
[2017-09-24] MEDS: HEPARIN NA (PORCINE) 5,000 UNITS/ML 1ML VIAL SQ SCH ×2 (10:21→22:46)
[2017-09-24] MEDS: FOLIC ACID 1 MG TABLET (FP) PO SCH (10:21)
[2017-09-24] MEDS: SODIUM BICARBONATE 650 MG TABLET PO SCH (10:24)
[2017-09-24] MEDS: PRENATAL VITAMINS W/ FOLIC ACID TABLET (FP) PO SCH (10:27)
[2017-09-24] MEDS: CYANOCOBALAMIN 1,000 MCG TABLET (FP) PO SCH (10:27)
[2017-09-24] MEDS: MAGNESIUM CL 64 MG TABLET.SA PO SCH (10:28)
[2017-09-24] MEDS: NICOTINE 7 MG/24 HOURS TOPICAL PATCH TD SCH (10:30)
--- NOTE | 2017-09-24 11:16 | PN ---
Progress Note (short form) - Note Progress Note: PULMONARY/CCM No further fevers. Mild shortness of breath. Last Vital Signs Temp Pulse Resp BP Pulse Ox 98.6 F 87 21 95/65 95 09/24/17 05:35 09/24/17 05:35 09/24/17 05:35 09/24/17 05:35 09/23/17 22:00 Intake & Output 09/21/17 09/22/17 09/23/17 09/24/17 23:59 23:59 23:59 23:59 Intake Total 1210 2100 500 290 Output Total 180 3900 200 Balance 1210 1920 -3400 90 Weight 49.895 kg 51.301 kg Gen: mildly tachypneic at rest Heart: tachycardic, regular Lung: decreased breath sounds at the bases Abd: soft, nontender Ext: no edema CBC, BMP 09/24/17 05:00 09/24/17 05:00 Active Medications Albuterol/Ipratropium (Duoneb -) 1 amp NEB Q12H PRN PRN Reason: WHEEZING Cyanocobalamin (Vitamin B12 -) 1,000 mcg PO DAILY [facility] Last Admin: 09/24/17 10:27 Dose: 1,000 mcg Folic Acid (Folic Acid -) 1 mg PO DAILY [facility] Last Admin: 09/24/17 10:21 Dose: 1 mg Furosemide (Lasix Injection -) 40 mg IVPUSH BID@0600,1400 [facility] Last Admin: 09/24/17 05:38 Dose: 40 mg Heparin Sodium (Porcine) (Heparin -) 5,000 unit SQ BID [facility] Last Admin: 09/24/17 10:21 Dose: 5,000 unit Piperacillin Sod/Tazobactam (Sod 3.375 gm/ Dextrose) 50 mls @ 100 mls/hr IVPB Q8H-IV DK PRN Reason: Protocol Last Admin: 09/24/17 10:33 Dose: 100 mls/hr Magnesium Chloride (Slow-Mag -) 128 mg PO DAILY [facility] Last Admin: 09/24/17 10:28 Dose: 128 mg Nicotine (Nicoderm Patch -) 7 mg TD DAILY [facility] Last Admin: 09/24/17 10:30 Dose: 7 mg Nicotine Polacrilex (Nicorette Gum -) 2 mg BUC Q2H PRN PRN Reason: NICOTINE REPLACEMENT RX Multivit/Folic Acid/Iron ( Vitamins (Sjr) -) 1 tab PO DAILY [facility] Last Admin: 09/24/17 10:27 Dose: 1 tab Sertraline HCl (Zoloft -) 50 mg PO DAILY [facility] Last Admin: 09/24/17 10:21 Dose: 50 mg Sodium Bicarbonate (Sodium Bicarbonate -) 650 mg PO DAILY [facility] Last Admin: 09/24/17 10:24 Dose: 650 mg Thiamine HCl (Vitamin B1 -) 100 mg PO [facility] Last Admin: 09/23/17 21:55 Dose: 100 mg A/P Altered Mental Status improved UTI Gram Negative Bacteremia Sepsis Acute Kidney Injury improving CAD s/p CABG h/o MVR Pulmonary HTN Acute on Chronic LV Diastolic Heart Failure Alcohol Abuse - continue antibiotics - lasix - monitor urine output, creatinine - O2 to keep SpO2 >90% - librium as needed - DVT prophylaxis
--- NOTE | 2017-09-24 16:54 | PN ---
Progress Note, Physician History of Present Illness: Pt more responsive today. States she feels better. No fever/chills/pain. - Current Medication List Current Medications: Active Medications Albuterol/Ipratropium (Duoneb -) 1 amp NEB Q12H PRN PRN Reason: WHEEZING Cyanocobalamin (Vitamin B12 -) 1,000 mcg PO DAILY [facility] Last Admin: 09/24/17 10:27 Dose: 1,000 mcg Folic Acid (Folic Acid -) 1 mg PO DAILY [facility] Last Admin: 09/24/17 10:21 Dose: 1 mg Furosemide (Lasix Injection -) 40 mg IVPUSH BID@0600,1400 [facility] Last Admin: 09/24/17 05:38 Dose: 40 mg Heparin Sodium (Porcine) (Heparin -) 5,000 unit SQ BID [facility] Last Admin: 09/24/17 10:21 Dose: 5,000 unit Piperacillin Sod/Tazobactam (Sod 3.375 gm/ Dextrose) 50 mls @ 100 mls/hr IVPB Q8H-IV DK PRN Reason: Protocol Last Admin: 09/24/17 10:33 Dose: 100 mls/hr Magnesium Chloride (Slow-Mag -) 128 mg PO DAILY [facility] Last Admin: 09/24/17 10:28 Dose: 128 mg Nicotine (Nicoderm Patch -) 7 mg TD DAILY [facility] Last Admin: 09/24/17 10:30 Dose: 7 mg Nicotine Polacrilex (Nicorette Gum -) 2 mg BUC Q2H PRN PRN Reason: NICOTINE REPLACEMENT RX Multivit/Folic Acid/Iron ( Vitamins (Sjr) -) 1 tab PO DAILY [facility] Last Admin: 09/24/17 10:27 Dose: 1 tab Sertraline HCl (Zoloft -) 50 mg PO DAILY [facility] Last Admin: 09/24/17 10:21 Dose: 50 mg Sodium Bicarbonate (Sodium Bicarbonate -) 650 mg PO DAILY [facility] Last Admin: 09/24/17 10:24 Dose: 650 mg Thiamine HCl (Vitamin B1 -) 100 mg PO HS [facility] Last Admin: 09/23/17 21:55 Dose: 100 mg - Objective Vital Signs: Vital Signs Temperature 98.6 F 09/24/17 05:35 Pulse Rate 87 09/24/17 05:35 Respiratory Rate 21 09/24/17 05:35 Blood Pressure 95/65 09/24/17 05:35 O2 Sat by Pulse Oximetry (%) 95 09/23/17 22:00 Constitutional: Yes: No Distress, Calm Cardiovascular: Yes: Tachycardia Respiratory: Yes: CTA Bilaterally Gastrointestinal: Yes: Normal Bowel Sounds, Soft Genitourinary: Yes: WNL Extremities: Yes: WNL Neurological: Yes: Alert Labs: CBC, BMP 09/24/17 05:00 09/24/17 05:00 INR, PTT INR 1.26 (0.82-1.09) H 09/22/17 18:20 Microbiology 09/19/17 12:45 Blood - Peripheral Venous Blood Culture - Final NO GROWTH AFTER 5 DAYS INCUBATION 09/22/17 18:00 Blood - Peripheral Venous Blood Culture - Preliminary NO GROWTH OBTAINED AFTER 24 HOURS, INCUBATION TO CONTINUE FOR 4 DAYS. 09/22/17 18:20 Blood - Peripheral Venous Blood Culture - Preliminary NO GROWTH OBTAINED AFTER 24 HOURS, INCUBATION TO CONTINUE FOR 4 DAYS. - ....Imaging Chest X-ray: Report Reviewed Problem List - Problems (1) Acute on chronic diastolic (congestive) heart failure Code(s): I50.33 - ACUTE ON CHRONIC DIASTOLIC (CONGESTIVE) HEART FAILURE (2) Alcohol withdrawal Code(s): F10.239 - ALCOHOL DEPENDENCE WITH WITHDRAWAL, UNSPECIFIED (3) Anemia Code(s): D64.9 - ANEMIA, UNSPECIFIED (4) COPD (chronic obstructive pulmonary disease) Code(s): J44.9 - CHRONIC OBSTRUCTIVE PULMONARY DISEASE, UNSPECIFIED (5) HLD (hyperlipidemia) Code(s): E78.5 - HYPERLIPIDEMIA, UNSPECIFIED (6) Tachycardia Code(s): R00.0 - TACHYCARDIA, UNSPECIFIED (7) Malnutrition Code(s): E46 - UNSPECIFIED PROTEIN-CALORIE MALNUTRITION (8) Nicotine dependence Code(s): F17.200 - NICOTINE DEPENDENCE, UNSPECIFIED, UNCOMPLICATED Qualifiers: Nicotine product type: cigarettes Substance use status: uncomplicated Qualified Code(s): F17.210 - Nicotine dependence, cigarettes, uncomplicated Assessment/Plan 56 yo female with PMH of HTN, MVR, CAD s/p CABG, and chronic alcohol abuse with recent alcohol withdrawal initially on Ceftriaxone for UTI noted to become lethargic, tachycardic, febrile, and hypoxic. Clinically improving. E. coli UTI/Pyelonephritis Sepsis Pulmonary atelectasis vs consolidations -- continue Zosyn for now -- blood cultures neg -- now afebrile, wbc decreased since yesterday -- continue monitor
--- NOTE | 2017-09-24 17:11 | PN ---
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 strong family history of CKD Current Medications Albuterol/Ipratropium (Duoneb -) 1 amp NEB Q12H PRN PRN Reason: WHEEZING Cyanocobalamin (Vitamin B12 -) 1,000 mcg PO DAILY [facility] Last Admin: 09/24/17 10:27 Dose: 1,000 mcg Folic Acid (Folic Acid -) 1 mg PO DAILY [facility] Last Admin: 09/24/17 10:21 Dose: 1 mg Furosemide (Lasix Injection -) 40 mg IVPUSH BID@0600,1400 [facility] Last Admin: 09/24/17 05:38 Dose: 40 mg Heparin Sodium (Porcine) (Heparin -) 5,000 unit SQ BID [facility] Last Admin: 09/24/17 10:21 Dose: 5,000 unit Piperacillin Sod/Tazobactam (Sod 3.375 gm/ Dextrose) 50 mls @ 100 mls/hr IVPB Q8H-IV DK PRN Reason: Protocol Last Admin: 09/24/17 10:33 Dose: 100 mls/hr Magnesium Chloride (Slow-Mag -) 128 mg PO DAILY [facility] Last Admin: 09/24/17 10:28 Dose: 128 mg Nicotine (Nicoderm Patch -) 7 mg TD DAILY [facility] Last Admin: 09/24/17 10:30 Dose: 7 mg Nicotine Polacrilex (Nicorette Gum -) 2 mg BUC Q2H PRN PRN Reason: NICOTINE REPLACEMENT RX Multivit/Folic Acid/Iron ( Vitamins (Sjr) -) 1 tab PO DAILY [facility] Last Admin: 09/24/17 10:27 Dose: 1 tab Sertraline HCl (Zoloft -) 50 mg PO DAILY [facility] Last Admin: 09/24/17 10:21 Dose: 50 mg Sodium Bicarbonate (Sodium Bicarbonate -) 650 mg PO DAILY [facility] Last Admin: 09/24/17 10:24 Dose: 650 mg Thiamine HCl (Vitamin B1 -) 100 mg PO HS [facility] Last Admin: 09/23/17 21:55 Dose: 100 mg Last Vital Signs Temp Pulse Resp BP Pulse Ox 98.6 F 87 21 95/65 95 09/24/17 05:35 04/01/18 05:35 09/24/17 05:35 09/24/17 05:35 09/23/17 22:00 less lethargic but more able to apprehend Lungs clear Heart reg Abd soft nontender ext no edema CBC, BMP 09/24/17 05:00 09/24/17 05:00 s/p DANIS (baseline Cr 0.6) -volume depletion, radiocontrast -Hyponatremia resolved -Mild pulmonary congestion on imaging- no resp sx -Metabolic acidosis (non-anion gap)- resolved -ETOH abuse/withdrawal -s/p Hypokalemia - resolved -Adrenal Lesion -Suspected Pylonephritis Anemia - -Renal function stable, however not yet at baseline s/p fluid overload,(congestion on CXR) and respiratory distress
[2017-09-24 21:34] LABS: ARTERIAL BLD GAS O2 SATURATION 96.6 % (90-98.9); ARTERIAL BLOOD GAS BASE EXCESS 3.3 meq/l (-2-2); ARTERIAL BLOOD GAS PCO2 40.4 mmHg (35-45); ARTERIAL BLOOD GAS PO2 84.4 mmHg (80-100); ARTERIAL BLOOD GAS pH 7.44 (7.35-7.45)
[2017-09-24 21:35] LABS: ALLENS TEST POSITIVE
[2017-09-24] MEDS: THIAMINE HCL 100 MG TABLET (FP) PO SCH (22:45)
--- NOTE | 2017-09-24 23:51 | PN ---
Progress Note, Physician History of Present Illness: No new complaints - Current Medication List Current Medications: Active Medications Albuterol/Ipratropium (Duoneb -) 1 amp NEB Q12H PRN PRN Reason: WHEEZING Cyanocobalamin (Vitamin B12 -) 1,000 mcg PO DAILY [facility] Last Admin: 09/24/17 10:27 Dose: 1,000 mcg Folic Acid (Folic Acid -) 1 mg PO DAILY [facility] Last Admin: 09/24/17 10:21 Dose: 1 mg Furosemide (Lasix Injection -) 40 mg IVPUSH BID@0600,1400 [facility] Last Admin: 09/24/17 14:00 Dose: Not Given Heparin Sodium (Porcine) (Heparin -) 5,000 unit SQ BID [facility] Last Admin: 09/24/17 22:46 Dose: 5,000 unit Piperacillin Sod/Tazobactam (Sod 3.375 gm/ Dextrose) 50 mls @ 100 mls/hr IVPB Q8H-IV DK PRN Reason: Protocol Last Admin: 09/24/17 17:54 Dose: 100 mls/hr Magnesium Chloride (Slow-Mag -) 128 mg PO DAILY [facility] Last Admin: 09/24/17 10:28 Dose: 128 mg Nicotine (Nicoderm Patch -) 7 mg TD DAILY [facility] Last Admin: 09/24/17 10:30 Dose: 7 mg Nicotine Polacrilex (Nicorette Gum -) 2 mg BUC Q2H PRN PRN Reason: NICOTINE REPLACEMENT RX Multivit/Folic Acid/Iron ( Vitamins (Sjr) -) 1 tab PO DAILY [facility] Last Admin: 09/24/17 10:27 Dose: 1 tab Sertraline HCl (Zoloft -) 50 mg PO DAILY [facility] Last Admin: 09/24/17 10:21 Dose: 50 mg Sodium Bicarbonate (Sodium Bicarbonate -) 650 mg PO DAILY [facility] Last Admin: 09/24/17 10:24 Dose: 650 mg Thiamine HCl (Vitamin B1 -) 100 mg PO HS [facility] Last Admin: 09/24/17 22:45 Dose: 100 mg - Objective Vital Signs: Vital Signs Temperature 98.3 F 09/24/17 13:00 Pulse Rate 106 H 09/24/17 13:00 Respiratory Rate 28 H 09/24/17 13:00 Blood Pressure 89/62 09/24/17 13:00 O2 Sat by Pulse Oximetry (%) 97 09/24/17 22:00 Constitutional: Yes: Cachectic Cardiovascular: Yes: WNL, Regular Rate and Rhythm Respiratory: Yes: WNL, Regular, CTA Bilaterally Gastrointestinal: Yes: WNL, Normal Bowel Sounds, Soft Edema: No Labs: CBC, BMP 09/24/17 05:00 09/24/17 05:00 INR, PTT INR 1.26 (0.82-1.09) H 09/22/17 18:20 Problem List - Problems (1) Sepsis Assessment/Plan: Cont IV antibxs BC/Urine culture (+) for E.Coli Cont IVF Code(s): A41.9 - SEPSIS, UNSPECIFIED ORGANISM (2) Tachycardia Code(s): R00.0 - TACHYCARDIA, UNSPECIFIED (3) ARF (acute renal failure) Code(s): N17.9 - ACUTE KIDNEY FAILURE, UNSPECIFIED (4) HTN (hypertension) Code(s): I10 - ESSENTIAL (PRIMARY) HYPERTENSION (5) HLD (hyperlipidemia) Code(s): E78.5 - HYPERLIPIDEMIA, UNSPECIFIED (6) COPD (chronic obstructive pulmonary disease) Code(s): J44.9 - CHRONIC OBSTRUCTIVE PULMONARY DISEASE, UNSPECIFIED (7) Anemia Assessment/Plan: Cont folic acid/ferrous sulfate Repeat H/H in am and transfuse as needed ?Dilutional to IVF Code(s): D64.9 - ANEMIA, UNSPECIFIED (8) Cachexia Code(s): R64 - CACHEXIA (9) Anxiety and depression Code(s): F41.9 - ANXIETY DISORDER, UNSPECIFIED; F32.9 - MAJOR DEPRESSIVE DISORDER, SINGLE EPISODE, UNSPECIFIED (10) Alcohol withdrawal Assessment/Plan: Cont was detoxed w/ librium Agree w/ dc planning to inpt rehab Code(s): F10.239 - ALCOHOL DEPENDENCE WITH WITHDRAWAL, UNSPECIFIED
[2017-09-25] MEDS: PIPERACILLIN/TAZOB 3.375 GM 3.375 GM in DEXTROSE 5%-WATER - 50 ML IVPB SCH ×2 (01:32→10:54)
--- NOTE | 2017-09-25 03:18 | PN ---
Progress Note, Physician Chief Complaint: Pt is more alert; no chest pain or dyspnea. History of Present Illness: 56 yo black woman with h/o HTN, CAD ( s/p CABG), bioprosthetic MVR, diastolic CHF, chronic EtOH abuse, who presents with tachycardia. Patient reports one week of night sweats, increased confusion, tremors, SOB, BL chest tightness, and fatigue following home attempt at alcohol cessation. Chest pressure slightly improved and left sided with absent radiation. Reports Roque, and pleuritic chest pain. Also complains of visual hallucinations upon awakening. + chronic cough. 2 days of palpitations occurring intermittently, with no identifiable trigger or alleviators. Tobacco use 1/2 ppd 20 + years. Daily vodka use ( 1 pint per day) with last alcoholic beverage 7 days [employer]. Denies F/C , hemoptysis, wheezing, abdominal pain, diarrhea, constipation, lightheadedness , weakness, sensory changes, or convulsions. This AM patient went to outpt. rehab seeking medication treatment for withdrawal, but sent to ED d/t tachycardia ~120 on triage vitals. Currently not being treated for withdrawal. Denies recent travel or immobilization, h/o PE/DVT, hormone use, trauma or surgery within past 6 weeks, or h/o malignancy. - Current Medication List Current Medications: Active Medications Albuterol/Ipratropium (Duoneb -) 1 amp NEB Q12H PRN PRN Reason: WHEEZING Cyanocobalamin (Vitamin B12 -) 1,000 mcg PO DAILY [facility] Last Admin: 09/24/17 10:27 Dose: 1,000 mcg Folic Acid (Folic Acid -) 1 mg PO DAILY [facility] Last Admin: 09/24/17 10:21 Dose: 1 mg Furosemide (Lasix Injection -) 40 mg IVPUSH BID@0600,1400 [facility] Last Admin: 09/24/17 14:00 Dose: Not Given Heparin Sodium (Porcine) (Heparin -) 5,000 unit SQ BID [facility] Last Admin: 09/24/17 22:46 Dose: 5,000 unit Piperacillin Sod/Tazobactam (Sod 3.375 gm/ Dextrose) 50 mls @ 100 mls/hr IVPB Q8H-IV DK PRN Reason: Protocol Last Admin: 09/25/17 01:32 Dose: 100 mls/hr Magnesium Chloride (Slow-Mag -) 128 mg PO DAILY [facility] Last Admin: 09/24/17 10:28 Dose: 128 mg Nicotine (Nicoderm Patch -) 7 mg TD DAILY [facility] Last Admin: 09/24/17 10:30 Dose: 7 mg Nicotine Polacrilex (Nicorette Gum -) 2 mg BUC Q2H PRN PRN Reason: NICOTINE REPLACEMENT RX Multivit/Folic Acid/Iron ( Vitamins (Sjr) -) 1 tab PO DAILY [facility] Last Admin: 09/24/17 10:27 Dose: 1 tab Sertraline HCl (Zoloft -) 50 mg PO DAILY [facility] Last Admin: 09/24/17 10:21 Dose: 50 mg Sodium Bicarbonate (Sodium Bicarbonate -) 650 mg PO DAILY [facility] Last Admin: 09/24/17 10:24 Dose: 650 mg Thiamine HCl (Vitamin B1 -) 100 mg PO [facility] Last Admin: 09/24/17 22:45 Dose: 100 mg - Objective Vital Signs: Vital Signs Temperature 98.3 F 09/24/17 13:00 Pulse Rate 106 H 09/24/17 13:00 Respiratory Rate 28 H 09/24/17 13:00 Blood Pressure 89/62 09/24/17 13:00 O2 Sat by Pulse Oximetry (%) 96 09/24/17 23:30 Constitutional: Yes: Calm Eyes: Yes: WNL HENT: Yes: WNL Neck: Yes: WNL Cardiovascular: Yes: Murmur, S1, S2 Respiratory: Yes: Diminished Gastrointestinal: Yes: Soft ...Rectal Exam: Yes: Deferred Genitourinary: No: Anuria Breast(s): Yes: WNL Musculoskeletal: Yes: Muscle Weakness Extremities: Yes: Cool Edema: No Peripheral Pulses WNL: Yes Integumentary: Yes: WNL Neurological: Yes: Alert, Weakness Psychiatric: Yes: Other (alcoholism) Labs: CBC, BMP 09/24/17 05:00 09/24/17 05:00 INR, PTT INR 1.26 (0.82-1.09) H 09/22/17 18:20 - ....Imaging Chest X-ray: Image Reviewed (CHF: improving R base) Other: Image Reviewed (telemetry: NSR (VR 90s bpm)) Problem List - Problems (1) History of mitral valve prosthesis Assessment/Plan: significant functional mitral stenosis (mean gradient 15 mmHg). (2) Alcohol withdrawal Assessment/Plan: Continue detox protocol. Code(s): F10.239 - ALCOHOL DEPENDENCE WITH WITHDRAWAL, UNSPECIFIED (3) Anemia Assessment/Plan: Hb 8.1-->8.3 Code(s): D64.9 - ANEMIA, UNSPECIFIED (4) Anxiety and depression Assessment/Plan: On Zoloft. Detox protocol. Code(s): F41.9 - ANXIETY DISORDER, UNSPECIFIED; F32.9 - MAJOR DEPRESSIVE DISORDER, SINGLE EPISODE, UNSPECIFIED (5) COPD (chronic obstructive pulmonary disease) Code(s): J44.9 - CHRONIC OBSTRUCTIVE PULMONARY DISEASE, UNSPECIFIED (6) HLD (hyperlipidemia) Assessment/Plan: f/u lipid panel (elevated triglycerides 2010). Code(s): E78.5 - HYPERLIPIDEMIA, UNSPECIFIED (7) HTN (hypertension) Code(s): I10 - ESSENTIAL (PRIMARY) HYPERTENSION (8) Hypokalemia Code(s): E87.6 - HYPOKALEMIA (9) Malnutrition Code(s): E46 - UNSPECIFIED PROTEIN-CALORIE MALNUTRITION (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 Code(s): F15.10 - OTHER STIMULANT ABUSE, UNCOMPLICATED (11) Nicotine dependence Assessment/Plan: on nicoderm patch Code(s): F17.200 - NICOTINE DEPENDENCE, UNSPECIFIED, UNCOMPLICATED Qualifiers: Nicotine product type: cigarettes Substance use status: uncomplicated Qualified Code(s): F17.210 - Nicotine dependence, cigarettes, uncomplicated (12) Weight loss Code(s): R63.4 - ABNORMAL WEIGHT LOSS (13) Hypomagnesemia Assessment/Plan: repleted; level now.2.3 (keep 2-2.3). F/u all electrolytes. Code(s): E83.42 - HYPOMAGNESEMIA (14) Acute on chronic diastolic (congestive) heart failure Assessment/Plan: Continue minimal fluids, IV furosemide. BNP 4,200-->2,502; (weight 110-->?113lbs). Is and Os, daily Is and Os, BUN/Cr, electrolytes (repleted Mg). Code(s): I50.33 - ACUTE ON CHRONIC DIASTOLIC (CONGESTIVE) HEART FAILURE
[2017-09-25] MEDS: FUROSEMIDE 40 MG/4 ML INJECTABLE VIAL IVPUSH SCH ×2 (05:38→15:26)
[2017-09-25 09:15] LABS: BASO % 0.5 % (0-2.0); EOS % 1.5 % (0-4.5); HEMATOCRIT 25.5 % (32.4-45.2); HEMOGLOBIN 8.8 GM/dL (10.7-15.3); LYMPH % 12.8 % (8-40); MCH 32.3 pg (25.7-33.7); MCHC 34.4 g/dl (32.0-36.0); MEAN PLT VOLUME 7.8 fl (7.5-11.1); MONO % 7.3 % (3.8-10.2); NEUT % 77.9 % (42.8-82.8); PLATELET COUNT 602 K/MM3 (134-434); RBC 2.71 M/mm3 (3.60-5.2); RDW 15.4 % (11.6-15.6); WHITE BLOOD COUNT 10.3 K/mm3 (4.0-10.0)
[2017-09-25 10:07] LABS: CHLORIDE 99 mmol/L (98-107); POTASSIUM 3.9 mmol/L (3.5-5.1); SODIUM 137 mmol/L (136-145)
[2017-09-25 10:11] LABS: ALBUMIN 2.3 g/dl (3.4-5.0); ALK PHOS 166 U/L (45-117); ANION GAP 11 (8-16); BILIRUBIN,TOTAL 0.2 mg/dL (0.2-1.0); BLOOD UREA NITROGEN 28 mg/dL (7-18); CALCIUM 8.9 mg/dL (8.5-10.1); CO2 27 mmol/L (21-32); CREATININE 1.2 mg/dL (0.55-1.02); GLUCOSE,RANDOM 108 mg/dL (74-106); SGOT/AST 22 U/L (15-37); SGPT/ALT 23 U/L (12-78); TOT PROT 7.3 g/dl (6.4-8.2)
[2017-09-25] MEDS: FOLIC ACID 1 MG TABLET (FP) PO SCH (10:54)
[2017-09-25] MEDS: SERTRALINE HCL 50 MG TABLET (FP) PO SCH (10:54)
[2017-09-25] MEDS: SODIUM BICARBONATE 650 MG TABLET PO SCH (10:55)
[2017-09-25] MEDS: HEPARIN NA (PORCINE) 5,000 UNITS/ML 1ML VIAL SQ SCH ×2 (10:56→23:08)
[2017-09-25] MEDS: NICOTINE 7 MG/24 HOURS TOPICAL PATCH TD SCH (10:58)
[2017-09-25] MEDS ORDERED: PT OWN MED DRAWER 7, Y5N ONE (10:58)
[2017-09-25] MEDS: CYANOCOBALAMIN 1,000 MCG TABLET (FP) PO SCH (10:59)
[2017-09-25] MEDS: MAGNESIUM CL 64 MG TABLET.SA PO SCH (10:59)
[2017-09-25] MEDS: PRENATAL VITAMINS W/ FOLIC ACID TABLET (FP) PO SCH (10:59)
--- NOTE | 2017-09-25 12:00 | PN ---
Progress Note (short form) - Note Progress Note: Renal Follow up for DANIS Pt seen and examined at the bedside awake and alert reprots feeling better no CP, SOB, N/V/D Vital Signs Temperature 99.2 F 09/25/17 05:30 Pulse Rate 100 H 09/25/17 06:00 Respiratory Rate 22 09/25/17 06:00 Blood Pressure 95/65 09/25/17 06:00 O2 Sat by Pulse Oximetry (%) 97 09/25/17 08:38 Intake & Output 09/22/17 09/23/17 09/24/17 09/25/17 23:59 23:59 23:59 23:59 Intake Total 2100 500 1295 50 Output Total 180 3900 1500 440 Balance 0140 -3400 -205 -390 Weight 51.301 kg 48.648 kg mild respiratory distress tachycardic, no M/R CTA soft NT/ND NO LE edmea CBC, BMP 09/25/17 09:00 09/25/17 09:00 Current Medications Albuterol/Ipratropium (Duoneb -) 1 amp NEB Q12H PRN PRN Reason: WHEEZING Cyanocobalamin (Vitamin B12 -) 1,000 mcg PO DAILY [facility] Last Admin: 09/25/17 10:59 Dose: 1,000 mcg Folic Acid (Folic Acid -) 1 mg PO DAILY DK Last Admin: 09/25/17 10:54 Dose: 1 mg Furosemide (Lasix Injection -) 40 mg IVPUSH BID@0600,1400 [facility] Last Admin: 09/25/17 05:38 Dose: 40 mg Heparin Sodium (Porcine) (Heparin -) 5,000 unit SQ BID DK Last Admin: 09/25/17 10:56 Dose: 5,000 unit Piperacillin Sod/Tazobactam (Sod 3.375 gm/ Dextrose) 50 mls @ 100 mls/hr IVPB Q8H-IV DK PRN Reason: Protocol Last Admin: 09/25/17 10:54 Dose: 100 mls/hr Magnesium Chloride (Slow-Mag -) 128 mg PO DAILY [facility] Last Admin: 09/25/17 10:59 Dose: 128 mg Nicotine (Nicoderm Patch -) 7 mg TD DAILY DK Last Admin: 09/25/17 10:58 Dose: 7 mg Nicotine Polacrilex (Nicorette Gum -) 2 mg BUC Q2H PRN PRN Reason: NICOTINE REPLACEMENT RX Multivit/Folic Acid/Iron ( Vitamins (Sjr) -) 1 tab PO DAILY [facility] Last Admin: 09/25/17 10:59 Dose: 1 tab Sertraline HCl (Zoloft -) 50 mg PO DAILY [facility] Last Admin: 09/25/17 10:54 Dose: 50 mg Sodium Bicarbonate (Sodium Bicarbonate -) 650 mg PO DAILY [facility] Last Admin: 09/25/17 10:55 Dose: 650 mg Thiamine HCl (Vitamin B1 -) 100 mg PO HS [facility] Last Admin: 09/24/17 22:45 Dose: 100 mg 56 year old woman with PMhx of Hypertension, CAD s/p CABG, MVR, Chronic ETOH abuse who was sent from outpatient rehab with tachycardia and found to have BUN/ Cr of 24/1.4 and Na of 129. #DANIS (baseline Cr 0.6) likely secondary to volume depletion but now pt with contrast exposure #Hyponatremia #Mild pulmonary congestion on imaging #Tachycardia #Metabolic acidosis (non-anion gap) #ETOH abuse/withdrawal #Hypokalemia #Adrenal Lesion #Suspected Pylonephritis Renal function is stable at this time Continue IV Lasix BID as per cardiology Trend renal function and electrolytes avoid KRISTEN/ARB as pt is not at baseline renal function no indication for [employer] Thank you August Lowery DO
--- NOTE | 2017-09-25 13:28 | PN ---
Progress Note (short form) - Note Progress Note: No further fevers. Reports feeling better. No CP or SOB. Intake & Output 09/22/17 09/23/17 09/24/17 09/25/17 23:59 23:59 23:59 23:59 Intake Total 2100 500 1295 50 Output Total 180 3900 1500 440 Balance 1920 -3400 -205 -390 Weight 113 lb 1.6 oz 107 lb 4 oz Last Vital Signs Temp Pulse Resp BP Pulse Ox 99.2 F 91 H 22 92/65 97 09/25/17 05:30 09/25/17 10:00 09/25/17 10:00 09/25/17 10:00 09/25/17 08:38 Active Medications Albuterol/Ipratropium (Duoneb -) 1 amp NEB Q12H PRN PRN Reason: WHEEZING Cyanocobalamin (Vitamin B12 -) 1,000 mcg PO DAILY [facility] Last Admin: 09/25/17 10:59 Dose: 1,000 mcg Folic Acid (Folic Acid -) 1 mg PO DAILY [facility] Last Admin: 09/25/17 10:54 Dose: 1 mg Furosemide (Lasix Injection -) 40 mg IVPUSH BID@0600,1400 [facility] Last Admin: 09/25/17 05:38 Dose: 40 mg Heparin Sodium (Porcine) (Heparin -) 5,000 unit SQ BID [facility] Last Admin: 09/25/17 10:56 Dose: 5,000 unit Piperacillin Sod/Tazobactam (Sod 3.375 gm/ Dextrose) 50 mls @ 100 mls/hr IVPB Q8H-IV DK PRN Reason: Protocol Last Admin: 09/25/17 10:54 Dose: 100 mls/hr Magnesium Chloride (Slow-Mag -) 128 mg PO DAILY [facility] Last Admin: 09/25/17 10:59 Dose: 128 mg Nicotine (Nicoderm Patch -) 7 mg TD DAILY [facility] Last Admin: 09/25/17 10:58 Dose: 7 mg Nicotine Polacrilex (Nicorette Gum -) 2 mg BUC Q2H PRN PRN Reason: NICOTINE REPLACEMENT RX Multivit/Folic Acid/Iron ( Vitamins (Sjr) -) 1 tab PO DAILY [facility] Last Admin: 09/25/17 10:59 Dose: 1 tab Sertraline HCl (Zoloft -) 50 mg PO DAILY [facility] Last Admin: 09/25/17 10:54 Dose: 50 mg Sodium Bicarbonate (Sodium Bicarbonate -) 650 mg PO DAILY [facility] Last Admin: 09/25/17 10:55 Dose: 650 mg Thiamine HCl (Vitamin B1 -) 100 mg PO HS [facility] Last Admin: 09/24/17 22:45 Dose: 100 mg Gen: NAD, Heart: S1S2, regular Lung: decreased breath sounds at the bases Abd: soft, nontender Ext: no edema Laboratory Results - last 24 hr 09/24/17 09/25/17 09/25/17 21:28 09:00 09:00 WBC 10.3 H RBC 2.71 L Hgb 8.8 L Hct 25.5 L MCV 94.0 MCH 32.3 MCHC 34.4 RDW 15.4 Plt Count 602 H D MPV 7.8 Neutrophils % 77.9 Lymphocytes % 12.8 Monocytes % 7.3 Eosinophils % 1.5 Basophils % 0.5 Anticoagulation Therapy No Result Required. Puncture Site Left radial ABG pH 7.44 ABG pCO2 at Pt Temp 40.4 D ABG pO2 at Pt Temp 84.4 ABG HCO3 27.2 H ABG O2 Sat (Measured) 96.6 ABG O2 Content 10.9 L ABG Base Excess 3.3 H Barney Test Positive O2 Delivery Device Nasal Oxygen Flow Rate 3/fio2 Vent Mode No Result Required. Vent Rate No Result Required. Mechanical Rate No Result Required. Pressure Support Vent No Result Required. Sodium 137 Potassium 3.9 Chloride 99 Carbon Dioxide 27 Anion Gap 11 BUN 28 H Creatinine 1.2 H Creat Clearance w eGFR 46.64 Random Glucose 108 H Calcium 8.9 Magnesium 2.0 Total Bilirubin 0.2 D AST 22 ALT 23 Alkaline Phosphatase 166 H Total Protein 7.3 Albumin 2.3 L A/P Altered Mental Status improved UTI Gram Negative Bacteremia Sepsis Acute Kidney Injury improving CAD s/p CABG h/o MVR Pulmonary HTN Acute on Chronic LV Diastolic Heart Failure Alcohol Abuse - ABX - Lasix - monitor urine output, creatinine - O2 to keep SpO2 >90% - librium as needed - DVT prophylaxis Dr Farrell
--- NOTE | 2017-09-25 14:49 | PN ---
[facility] Progress Note (SOAP) Subjective: patient awake, alert, family at bedside, no complaints, completed detox with librium Objective: 09/25/17 14:47 Vital Signs - 24 hr 09/24/17 09/24/17 09/24/17 20:00 21:00 22:00 Temperature 98.6 F Pulse Rate 101 H Respiratory 25 H Rate Blood Pressure 94/59 O2 Sat by Pulse 97 97 Oximetry (%) 09/24/17 09/25/17 09/25/17 23:30 00:00 01:35 Temperature 99 F Pulse Rate 98 H 91 H Respiratory 24 22 Rate Blood Pressure 95/64 92/65 O2 Sat by Pulse 96 Oximetry (%) 09/25/17 09/25/17 09/25/17 04:00 05:30 06:00 Temperature 99.2 F Pulse Rate 88 93 H 100 H Respiratory 23 21 22 Rate Blood Pressure 88/62 98/63 95/65 O2 Sat by Pulse Oximetry (%) 09/25/17 09/25/17 08:38 13:32 Temperature 99 F Pulse Rate 93 H Respiratory 22 Rate Blood Pressure 87/57 O2 Sat by Pulse 97 Oximetry (%) Laboratory Results - last 24 hr 09/24/17 09/25/17 09/25/17 21:28 09:00 09:00 WBC 10.3 H RBC 2.71 L Hgb 8.8 L Hct 25.5 L MCV 94.0 MCH 32.3 MCHC 34.4 RDW 15.4 Plt Count 602 H D MPV 7.8 Neutrophils % 77.9 Lymphocytes % 12.8 Monocytes % 7.3 Eosinophils % 1.5 Basophils % 0.5 Anticoagulation Therapy No Result Required. Puncture Site Left radial ABG pH 7.44 ABG pCO2 at Pt Temp 40.4 D ABG pO2 at Pt Temp 84.4 ABG HCO3 27.2 H ABG O2 Sat (Measured) 96.6 ABG O2 Content 10.9 L ABG Base Excess 3.3 H Barney Test Positive O2 Delivery Device Nasal Oxygen Flow Rate 3/fio2 Vent Mode No Result Required. Vent Rate No Result Required. Mechanical Rate No Result Required. Pressure Support Vent No Result Required. Sodium 137 Potassium 3.9 Chloride 99 Carbon Dioxide 27 Anion Gap 11 BUN 28 H Creatinine 1.2 H Creat Clearance w eGFR 46.64 Random Glucose 108 H Calcium 8.9 Magnesium 2.0 Total Bilirubin 0.2 D AST 22 ALT 23 Alkaline Phosphatase 166 H Total Protein 7.3 Albumin 2.3 L anemia, eleavted wbc, hypoalbuminemia, dehydrated, gabbi Assessment: 09/25/17 14:48 alcohol use diosrder, confrimed by family, completetd libirum detox, no further medical treatment for detox, is too medically compplromised to go for inpatient drug rehab, may return to intensive outpatient treatment at [facility] she is a patient .
[2017-09-25] MEDS ORDERED: FUROSEMIDE 40 MG/4 ML INJECTABLE VIAL ONE (15:39)
--- NOTE | 2017-09-25 15:43 | PN ---
Progress Note, Physician History of Present Illness: stable more alert in no apparent distress - Current Medication List Current Medications: Active Medications Albuterol/Ipratropium (Duoneb -) 1 amp NEB Q12H PRN PRN Reason: WHEEZING Cyanocobalamin (Vitamin B12 -) 1,000 mcg PO DAILY [facility] Last Admin: 09/25/17 10:59 Dose: 1,000 mcg Folic Acid (Folic Acid -) 1 mg PO DAILY [facility] Last Admin: 09/25/17 10:54 Dose: 1 mg Furosemide (Lasix Injection -) 40 mg IVPUSH BID@0600,1400 [facility] Last Admin: 09/25/17 15:26 Dose: 40 mg Heparin Sodium (Porcine) (Heparin -) 5,000 unit SQ BID [facility] Last Admin: 09/25/17 10:56 Dose: 5,000 unit Magnesium Chloride (Slow-Mag -) 128 mg PO DAILY [facility] Last Admin: 09/25/17 10:59 Dose: 128 mg Nicotine (Nicoderm Patch -) 7 mg TD DAILY [facility] Last Admin: 09/25/17 10:58 Dose: 7 mg Nicotine Polacrilex (Nicorette Gum -) 2 mg BUC Q2H PRN PRN Reason: NICOTINE REPLACEMENT RX Multivit/Folic Acid/Iron ( Vitamins (Sjr) -) 1 tab PO DAILY [facility] Last Admin: 09/25/17 10:59 Dose: 1 tab Sertraline HCl (Zoloft -) 50 mg PO DAILY [facility] Last Admin: 09/25/17 10:54 Dose: 50 mg Sodium Bicarbonate (Sodium Bicarbonate -) 650 mg PO DAILY [facility] Last Admin: 09/25/17 10:55 Dose: 650 mg Thiamine HCl (Vitamin B1 -) [address] [facility] Last Admin: 09/24/17 22:45 Dose: 100 mg - Objective Vital Signs: Vital Signs Temperature 99 F 09/25/17 13:32 Pulse Rate 93 H 09/25/17 13:32 Respiratory Rate 22 09/25/17 13:32 Blood Pressure 87/57 09/25/17 13:32 O2 Sat by Pulse Oximetry (%) 97 09/25/17 10:00 Constitutional: Yes: No Distress, Calm Neck: Yes: Supple Cardiovascular: Yes: Regular Rate and Rhythm Respiratory: Yes: Regular, CTA Bilaterally Gastrointestinal: Yes: Normal Bowel Sounds, Soft Musculoskeletal: Yes: WNL Extremities: Yes: WNL Neurological: Yes: Alert, Other Psychiatric: Yes: Other Labs: CBC, BMP 09/25/17 09:00 09/25/17 09:00 INR, PTT INR 1.26 (0.82-1.09) H 09/22/17 18:20 Assessment/Plan patient with gm negative bacteremia and uti currently lethargic and hypoxic gm negative bacteremia uti hypoxia lethargy drug abuse etoh abuse cx reports noted plan will down grade to ceftriaxone rest continue current mgmt patient starting to improve rest as per icu cc time 40 min
--- NOTE | 2017-09-25 15:43 | PN ---
Physical Exam: SUBJECTIVE: Patient seen and examined at the bedside. Resting, in no distress. Wants to start rehab, does not want to drink anymore. Feels ok, just weak, tired. No shortness of breath, no chest pain. OBJECTIVE: Medical coverage for Dr. Colon Vital Signs Period Temp Pulse Resp BP Sys/Chávez Pulse Ox Last 24 Hr 98.6 F-99.2 F 88-101 21-25 87-98/57-65 96-97 GENERAL: The patient is awake, alert, and fully oriented, in no acute distress. HEAD: Normal with no signs of trauma. EYES: PERRL, extraocular movements intact, sclera anicteric, conjunctiva clear. No ptosis. ENT: Ears normal, nares patent, oropharynx clear without exudates, moist mucous membranes. NECK: Trachea midline, full range of motion, supple. LUNGS: Breath sounds equal, clear to auscultation anteriorly HEART: Regular rate and rhythm, S1, S2 without murmur, rub or gallop. ABDOMEN: Soft, nontender, nondistended, normoactive bowel sounds, no guarding, no rebound, no hepatosplenomegaly, no masses. EXTREMITIES: no edema. NEUROLOGICAL: Normal speech, gait not observed. PSYCH: Normal mood, normal affect. SKIN: Warm, dry, normal turgor, no rashes or lesions noted Laboratory Results - last 24 hr 09/24/17 09/25/17 09/25/17 21:28 09:00 09:00 WBC 10.3 H RBC 2.71 L Hgb 8.8 L Hct 25.5 L MCV 94.0 MCH 32.3 MCHC 34.4 RDW 15.4 Plt Count 602 H D MPV 7.8 Neutrophils % 77.9 Lymphocytes % 12.8 Monocytes % 7.3 Eosinophils % 1.5 Basophils % 0.5 Anticoagulation Therapy No Result Required. Puncture Site Left radial ABG pH 7.44 ABG pCO2 at Pt Temp 40.4 D ABG pO2 at Pt Temp 84.4 ABG HCO3 27.2 H ABG O2 Sat (Measured) 96.6 ABG O2 Content 10.9 L ABG Base Excess 3.3 H Barney Test Positive O2 Delivery Device Nasal Oxygen Flow Rate 3/fio2 Vent Mode No Result Required. Vent Rate No Result Required. Mechanical Rate No Result Required. Pressure Support Vent No Result Required. Sodium 137 Potassium 3.9 Chloride 99 Carbon Dioxide 27 Anion Gap 11 BUN 28 H Creatinine 1.2 H Creat Clearance w eGFR 46.64 Random Glucose 108 H Calcium 8.9 Magnesium 2.0 Total Bilirubin 0.2 D AST 22 ALT 23 Alkaline Phosphatase 166 H Total Protein 7.3 Albumin 2.3 L Active Medications Generic Name Dose Route Start Last Admin Trade Name Freq PRN Reason Stop Dose Admin Albuterol/Ipratropium 1 amp 09/23/17 18:02 Duoneb - NEB Q12H PRN WHEEZING Cyanocobalamin 1,000 mcg 09/24/17 10:00 09/25/17 10:59 Vitamin B12 - PO 1,000 mcg DAILY DK Administration Folic Acid 1 mg 09/24/17 10:00 09/25/17 10:54 Folic Acid - PO 1 mg DAILY DK Administration Furosemide 40 mg 09/24/17 06:00 09/25/17 15:26 Lasix Injection - IVPUSH 40 mg BID@0600,1400 DK Administration Heparin Sodium (Porcine) 5,000 unit 09/23/17 22:00 09/25/17 10:56 Heparin - SQ 5,000 unit BID DK Administration Magnesium Chloride 128 mg 09/24/17 10:00 09/25/17 10:59 Slow-Mag - PO 128 mg DAILY DK Administration Nicotine 7 mg 09/24/17 10:00 09/25/17 10:58 Nicoderm Patch - TD 7 mg DAILY DK Administration Nicotine Polacrilex 2 mg 09/23/17 18:02 Nicorette Gum - BUC Q2H PRN NICOTINE REPLACEMENT RX Multivit/Folic Acid/Iron 1 tab 09/24/17 10:00 09/25/17 10:59 Vitamins (Sjr) - PO 1 tab DAILY DK Administration Sertraline HCl 50 mg 09/24/17 10:00 09/25/17 10:54 Zoloft - PO 50 mg DAILY DK Administration Sodium Bicarbonate 650 mg 09/24/17 10:00 09/25/17 10:55 Sodium Bicarbonate - PO 650 mg DAILY DK Administration Thiamine HCl 100 mg 09/23/17 22:00 09/24/17 22:45 Vitamin B1 - PO 100 mg HS DK Administration ASSESSMENT/PLAN: Patient is a 56 year old female with a significant past medical history of hypertension, CAD s/p CABG, MVR and chronic ETOH abuse. She who was sent from outpatient rehab facility to [place] [facility] when she was found to have tachycardia. She was noted to have an elevated BUN/Creatinine in the ED with hyponatremia. Imaging: CTA and abd CT s/f pulmonary vascular congestion, pleural effusions and perinephric fat stranding. ECHO severe mitral stenosis possibly d/t scarring from resection of mitral valve fibroelastoma. Renal: Pylelonephritis/urosepsis, acute Blood and urine cultures + for ecoli Repeat BC with no growth Switched to Ceftriaxone per ID Monitor vitals, labs Noted to be hypotensive today ID following Monitor BP Acute Kidney Injury Baseline creat 0.6, today 1.2 Monitor intake, output Avoid nephrotoxins continue greenwood Lasix BID Hyponatremia, resolved @ 137 Monitor BMP daily Card: Hypertension, hx Hypotensive today Monitor Cardiology following Acute on chronic valvular and diastolic CHF on Lasix to be increased to BID as per cardiology Mitral stenosis s/p as per echo Cardiology notes noted Anemia: On folic acid/ferrous sulfate Hmg/Hct trending up, will transfuse if hmg <8 Psyche ETOH abuse/withdrawal Was on Librium d/c planning likely to inpatient rehab F.E.N. Fluids: Electrolytes: Nutrition: Prophy; Heparin BID Disposition. full code.
--- NOTE | 2017-09-25 15:46 | PN ---
Progress Note, Physician History of Present Illness: The patient is a 56 year old female, with a significant past medical history of HTN, CAD ( s/p CABG), MVR, chronic EtoH abuse, who presents to the emergency department with tachycardia, following alcohol cessation. Patient reports having vodka use (1 pint per day) last beverage 7 days. She reports since having nauesa, retching, sweating, chills, tremors, and vomiting. She denies auditory and visual hallucinations. She does endorse feeling a little confused in addition to her other complaints. She denies recent fevers, chills, headache or dizziness. Allergies: NKA Past surgical history: None reported. Social history: See [facility] Primary Care Physician: - Current Medication List Current Medications: Active Medications Albuterol/Ipratropium (Duoneb -) 1 amp NEB Q12H PRN PRN Reason: WHEEZING Cyanocobalamin (Vitamin B12 -) 1,000 mcg PO DAILY [facility] Last Admin: 09/25/17 10:59 Dose: 1,000 mcg Folic Acid (Folic Acid -) 1 mg PO DAILY [facility] Last Admin: 09/25/17 10:54 Dose: 1 mg Furosemide (Lasix Injection -) 40 mg IVPUSH BID@0600,1400 DK Last Admin: 09/25/17 15:26 Dose: 40 mg Heparin Sodium (Porcine) (Heparin -) 5,000 unit SQ BID DK Last Admin: 09/25/17 10:56 Dose: 5,000 unit Ceftriaxone Sodium 1 gm/ (Dextrose) 100 mls @ 200 mls/hr IVPB DAILY [facility] Magnesium Chloride (Slow-Mag -) 128 mg PO DAILY DK Last Admin: 09/25/17 10:59 Dose: 128 mg Nicotine (Nicoderm Patch -) 7 mg TD DAILY [facility] Last Admin: 09/25/17 10:58 Dose: 7 mg Nicotine Polacrilex (Nicorette Gum -) 2 mg BUC Q2H PRN PRN Reason: NICOTINE REPLACEMENT RX Multivit/Folic Acid/Iron ( Vitamins (Sjr) -) 1 tab PO DAILY [facility] Last Admin: 09/25/17 10:59 Dose: 1 tab Sertraline HCl (Zoloft -) 50 mg PO DAILY DK Last Admin: 09/25/17 10:54 Dose: 50 mg Sodium Bicarbonate (Sodium Bicarbonate -) 650 mg PO DAILY DK Last Admin: 04/02/18 10:55 Dose: 650 mg Thiamine HCl (Vitamin B1 -) 100 mg PO HS [facility] Last Admin: 09/24/17 22:45 Dose: 100 mg - Objective Vital Signs: Vital Signs Temperature 99 F 09/25/17 13:32 Pulse Rate 93 H 09/25/17 13:32 Respiratory Rate 22 09/25/17 13:32 Blood Pressure 87/57 09/25/17 13:32 O2 Sat by Pulse Oximetry (%) 97 09/25/17 10:00 Eyes: Yes: WNL, Conjunctiva Clear, EOM Intact HENT: Yes: WNL, Atraumatic, Normocephalic Neck: Yes: WNL, Supple, Trachea Midline Cardiovascular: Yes: WNL, Regular Rate and Rhythm Respiratory: Yes: WNL, Regular, CTA Bilaterally Gastrointestinal: Yes: WNL, Normal Bowel Sounds Genitourinary: Yes: WNL Musculoskeletal: Yes: WNL Extremities: Yes: WNL Edema: No Integumentary: Yes: WNL Neurological: Yes: WNL, Alert, Oriented ...Motor Strength: WNL Psychiatric: Yes: WNL Labs: CBC, BMP 09/25/17 09:00 09/25/17 09:00 INR, PTT INR 1.26 (0.82-1.09) H 09/22/17 18:20 Laboratory Tests 09/19/17 09/19/17 09/19/17 12:25 12:25 12:25 WBC 13.4 H D RBC 2.80 L Hgb 8.9 L D Hct 26.1 L D MCV 93.4 MCH 31.9 MCHC 34.2 RDW 15.8 H Plt Count 185 MPV 10.7 D Total Counted 100 Neutrophils % No Result Required. Neutrophils % (Manual) 77.0 Band Neutrophils % 2.0 Lymphocytes % No Result Required. Lymphocytes % (Manual) 8.0 Monocytes % Monocytes % (Manual) 13 H Eosinophils % Basophils % Platelet Estimate Adequate PT with INR INR Anticoagulation Therapy Puncture Site ABG pH ABG pCO2 at Pt Temp ABG pO2 at Pt Temp ABG HCO3 ABG O2 Sat (Measured) ABG O2 Content ABG Base Excess Barney Test O2 Delivery Device Oxygen Flow Rate Vent Mode Vent Rate Mechanical Rate Pressure Support Vent Sodium 129 L Potassium 3.9 Chloride 97 L Carbon Dioxide 24 Anion Gap 8 BUN 24 H Creatinine 1.4 H Creat Clearance w eGFR 39.04 Random Glucose 129 H Lactic Acid Calcium 8.2 L Phosphorus Magnesium Iron TIBC Iron Saturation Ferritin Total Bilirubin 0.6 D AST 18 ALT 9 L Alkaline Phosphatase 188 H Creatine Kinase 44 Troponin I < 0.02 B-Natriuretic Peptide 4237.14 H Total Protein 6.4 Albumin 2.6 L Lipase Urine Color Urine Appearance Urine pH Ur Specific [place] Urine Protein Urine Glucose (UA) Urine Ketones Urine Blood Urine Nitrite Urine Bilirubin Urine Urobilinogen Ur Leukocyte Esterase Urine WBC (Auto) Urine RBC (Auto) Ur Epithelial Cells Urine Bacteria Urine Mucus U Random Total Protein Ur Random Sodium Ur Random Urea Nitrogn Urine Creatinine Opiates Screen Methadone Screen Barbiturate Screen Phencyclidine Screen Ur Amphetamines Screen MDMA (Ecstasy) Screen Benzodiazepines Screen Cocaine Screen U Marijuana (THC) Screen 09/19/17 09/19/17 09/19/17 12:25 12:45 12:45 WBC RBC Hgb Hct MCV MCH MCHC RDW Plt Count MPV Total Counted Neutrophils % Neutrophils % (Manual) Band Neutrophils % Lymphocytes % Lymphocytes % (Manual) Monocytes % Monocytes % (Manual) Eosinophils % Basophils % Platelet Estimate PT with INR 13.60 H INR 1.20 H Anticoagulation Therapy Puncture Site ABG pH ABG pCO2 at Pt Temp ABG pO2 at Pt Temp ABG HCO3 ABG O2 Sat (Measured) ABG O2 Content ABG Base Excess Barney Test O2 Delivery Device Oxygen Flow Rate Vent Mode Vent Rate Mechanical Rate Pressure Support Vent Sodium Potassium Chloride Carbon Dioxide Anion Gap BUN Creatinine Creat Clearance w eGFR Random Glucose Lactic Acid 1.0 Calcium Phosphorus Magnesium Iron TIBC Iron Saturation Ferritin Total Bilirubin AST ALT Alkaline Phosphatase Creatine Kinase Troponin I B-Natriuretic Peptide Total Protein Albumin Lipase 59 L Urine Color Urine Appearance Urine pH Ur Specific [place] Urine Protein Urine Glucose (UA) Urine Ketones Urine Blood Urine Nitrite Urine Bilirubin Urine Urobilinogen Ur Leukocyte Esterase Urine WBC (Auto) Urine RBC (Auto) Ur Epithelial Cells Urine Bacteria Urine Mucus U Random Total Protein Ur Random Sodium Ur Random Urea Nitrogn Urine Creatinine Opiates Screen Methadone Screen Barbiturate Screen Phencyclidine Screen Ur Amphetamines Screen MDMA (Ecstasy) Screen Benzodiazepines Screen Cocaine Screen U Marijuana (THC) Screen 09/19/17 09/20/17 09/20/17 18:50 06:30 06:30 WBC 12.6 H RBC 2.93 L Hgb 9.4 L Hct 27.5 L MCV 93.8 MCH 31.9 MCHC 34.0 RDW 16.2 H Plt Count 189 MPV 10.5 Total Counted Neutrophils % 83.3 H D Neutrophils % (Manual) Band Neutrophils % Lymphocytes % 5.6 L D Lymphocytes % (Manual) Monocytes % 9.7 Monocytes % (Manual) Eosinophils % 0.9 Basophils % 0.5 Platelet Estimate PT with INR INR Anticoagulation Therapy Puncture Site ABG pH ABG pCO2 at Pt Temp ABG pO2 at Pt Temp ABG HCO3 ABG O2 Sat (Measured) ABG O2 Content ABG Base Excess Barney Test O2 Delivery Device Oxygen Flow Rate Vent Mode Vent Rate Mechanical Rate Pressure Support Vent Sodium Potassium Chloride Carbon Dioxide Anion Gap BUN Creatinine Creat Clearance w eGFR Random Glucose Lactic Acid Calcium Phosphorus Magnesium Iron TIBC Iron Saturation Ferritin Total Bilirubin AST ALT Alkaline Phosphatase Creatine Kinase Cancelled Troponin I Cancelled B-Natriuretic Peptide Total Protein Albumin Lipase Urine Color Yellow Urine Appearance Cloudy Urine pH 6.0 Ur Specific [place] 1.012 Urine Protein 2+ H Urine Glucose (UA) Negative Urine Ketones Negative Urine Blood 2+ H Urine Nitrite Positive Urine Bilirubin Negative Urine Urobilinogen Negative Ur Leukocyte Esterase 3+ H D Urine WBC (Auto) 102 Urine RBC (Auto) 4 Ur Epithelial Cells Rare Urine Bacteria Rare Urine Mucus Rare U Random Total Protein Ur Random Sodium Ur Random Urea Nitrogn Urine Creatinine Opiates Screen Methadone Screen Barbiturate Screen Phencyclidine Screen Ur Amphetamines Screen MDMA (Ecstasy) Screen Benzodiazepines Screen Cocaine Screen U Marijuana (THC) Screen 09/20/17 09/20/17 09/21/17 06:30 16:00 00:45 WBC RBC Hgb Hct MCV MCH MCHC RDW Plt Count MPV Total Counted Neutrophils % Neutrophils % (Manual) Band Neutrophils % Lymphocytes % Lymphocytes % (Manual) Monocytes % Monocytes % (Manual) Eosinophils % Basophils % Platelet Estimate PT with INR INR Anticoagulation Therapy Puncture Site ABG pH ABG pCO2 at Pt Temp ABG pO2 at Pt Temp ABG HCO3 ABG O2 Sat (Measured) ABG O2 Content ABG Base Excess Barney Test O2 Delivery Device Oxygen Flow Rate Vent Mode Vent Rate Mechanical Rate Pressure Support Vent Sodium 136 137 Potassium 3.3 L 3.1 L Chloride 106 104 Carbon Dioxide 20 L 19 L Anion Gap 10 14 BUN 22 H 25 H Creatinine 1.2 H 1.3 H Creat Clearance w eGFR 46.64 Random Glucose 81 133 H Lactic Acid Calcium 7.8 L 8.0 L Phosphorus Magnesium Iron TIBC Iron Saturation Ferritin Total Bilirubin 0.5 AST 10 L ALT 7 L Alkaline Phosphatase 175 H Creatine Kinase 16 L 14 L Troponin I < 0.02 < 0.02 B-Natriuretic Peptide Total Protein 5.5 L Albumin 2.1 L Lipase Urine Color Urine Appearance Urine pH Ur Specific [place] Urine Protein Urine Glucose (UA) Urine Ketones Urine Blood Urine Nitrite Urine Bilirubin Urine Urobilinogen Ur Leukocyte Esterase Urine WBC (Auto) Urine RBC (Auto) Ur Epithelial Cells Urine Bacteria Urine Mucus U Random Total Protein Ur Random Sodium Ur Random Urea Nitrogn Urine Creatinine Opiates Screen Methadone Screen Barbiturate Screen Phencyclidine Screen Ur Amphetamines Screen MDMA (Ecstasy) Screen Benzodiazepines Screen Cocaine Screen U Marijuana (THC) Screen 09/21/17 09/21/17 09/21/17 00:48 00:48 00:48 WBC RBC Hgb Hct MCV MCH MCHC RDW Plt Count MPV Total Counted Neutrophils % Neutrophils % (Manual) Band Neutrophils % Lymphocytes % Lymphocytes % (Manual) Monocytes % Monocytes % (Manual) Eosinophils % Basophils % Platelet Estimate PT with INR INR Anticoagulation Therapy Puncture Site ABG pH ABG pCO2 at Pt Temp ABG pO2 at Pt Temp ABG HCO3 ABG O2 Sat (Measured) ABG O2 Content ABG Base Excess Barney Test O2 Delivery Device Oxygen Flow Rate Vent Mode Vent Rate Mechanical Rate Pressure Support Vent Sodium Potassium Chloride Carbon Dioxide Anion Gap BUN Creatinine Creat Clearance w eGFR Random Glucose Lactic Acid Calcium Phosphorus Magnesium Iron TIBC Iron Saturation Ferritin Total Bilirubin AST ALT Alkaline Phosphatase Creatine Kinase Troponin I B-Natriuretic Peptide Total Protein Albumin Lipase Urine Color Urine Appearance Urine pH Ur Specific [place] Urine Protein Urine Glucose (UA) Urine Ketones Urine Blood Urine Nitrite Urine Bilirubin Urine Urobilinogen Ur Leukocyte Esterase Urine WBC (Auto) Urine RBC (Auto) Ur Epithelial Cells Urine Bacteria Urine Mucus U Random Total Protein Ur Random Sodium 31 Ur Random Urea Nitrogn Urine Creatinine 73.3 Opiates Screen Negative Methadone Screen Negative Barbiturate Screen Negative Phencyclidine Screen Negative Ur Amphetamines Screen Negative MDMA (Ecstasy) Screen Negative Benzodiazepines Screen Positive Cocaine Screen Negative U Marijuana (THC) Screen Negative 09/21/17 09/21/17 09/21/17 00:48 00:48 05:10 WBC 12.5 H RBC 2.38 L Hgb 7.9 L D Hct 22.3 L D MCV 93.7 MCH 33.1 MCHC 35.3 RDW 15.8 H Plt Count 232 D MPV 9.8 Total Counted Neutrophils % 81.1 Neutrophils % (Manual) Band Neutrophils % Lymphocytes % 5.8 L Lymphocytes % (Manual) Monocytes % 11.7 H Monocytes % (Manual) Eosinophils % 1.0 Basophils % 0.4 Platelet Estimate PT with INR INR Anticoagulation Therapy Puncture Site ABG pH ABG pCO2 at Pt Temp ABG pO2 at Pt Temp ABG HCO3 ABG O2 Sat (Measured) ABG O2 Content ABG Base Excess Barney Test O2 Delivery Device Oxygen Flow Rate Vent Mode Vent Rate Mechanical Rate Pressure Support Vent Sodium Potassium Chloride Carbon Dioxide Anion Gap BUN Creatinine Creat Clearance w eGFR Random Glucose Lactic Acid Calcium Phosphorus Magnesium Iron TIBC Iron Saturation Ferritin Total Bilirubin AST ALT Alkaline Phosphatase Creatine Kinase Troponin I B-Natriuretic Peptide Total Protein Albumin Lipase Urine Color Urine Appearance Urine pH Ur Specific [place] Urine Protein Urine Glucose (UA) Urine Ketones Urine Blood Urine Nitrite Urine Bilirubin Urine Urobilinogen Ur Leukocyte Esterase Urine WBC (Auto) Urine RBC (Auto) Ur Epithelial Cells Urine Bacteria Urine Mucus U Random Total Protein 230 H Ur Random Sodium Ur Random Urea Nitrogn 396 Urine Creatinine Opiates Screen Methadone Screen Barbiturate Screen Phencyclidine Screen Ur Amphetamines Screen MDMA (Ecstasy) Screen Benzodiazepines Screen Cocaine Screen U Marijuana (THC) Screen 09/21/17 09/22/17 09/22/17 05:10 06:49 06:49 WBC RBC Hgb Hct MCV MCH MCHC RDW Plt Count MPV Total Counted Neutrophils % Neutrophils % (Manual) Band Neutrophils % Lymphocytes % Lymphocytes % (Manual) Monocytes % Monocytes % (Manual) Eosinophils % Basophils % Platelet Estimate PT with INR INR Anticoagulation Therapy Puncture Site ABG pH ABG pCO2 at Pt Temp ABG pO2 at Pt Temp ABG HCO3 ABG O2 Sat (Measured) ABG O2 Content ABG Base Excess Barney Test O2 Delivery Device Oxygen Flow Rate Vent Mode Vent Rate Mechanical Rate Pressure Support Vent Sodium 139 140 Potassium 3.0 L 4.7 Chloride 111 H 112 H Carbon Dioxide 19 L 18 L Anion Gap 9 10 BUN 23 H 16 Creatinine 1.1 H 1.0 Creat Clearance w eGFR 51.57 57.56 Random Glucose 69 L 84 Lactic Acid Calcium 7.4 L 7.9 L Phosphorus 3.5 2.7 Magnesium 1.6 L 2.2 Iron 14 L TIBC 143 L Iron Saturation 10 L Ferritin 901.498 H Total Bilirubin 0.4 0.4 AST 9 L 18 ALT < 6 L 8 L Alkaline Phosphatase 167 H 205 H Creatine Kinase Troponin I B-Natriuretic Peptide Total Protein 5.1 L 5.6 L Albumin 1.9 L 1.8 L Lipase Urine Color Urine Appearance Urine pH Ur Specific [place] Urine Protein Urine Glucose (UA) Urine Ketones Urine Blood Urine Nitrite Urine Bilirubin Urine Urobilinogen Ur Leukocyte Esterase Urine WBC (Auto) Urine RBC (Auto) Ur Epithelial Cells Urine Bacteria Urine Mucus U Random Total Protein Ur Random Sodium Ur Random Urea Nitrogn Urine Creatinine Opiates Screen Methadone Screen Barbiturate Screen Phencyclidine Screen Ur Amphetamines Screen MDMA (Ecstasy) Screen Benzodiazepines Screen Cocaine Screen U Marijuana (THC) Screen 09/22/17 09/22/17 09/22/17 06:49 16:40 18:20 WBC 13.3 H RBC 2.68 L Hgb 8.5 L Hct 25.6 L MCV 95.7 MCH 31.8 MCHC 33.3 RDW 16.9 H Plt Count 345 D MPV 9.1 Total Counted Neutrophils % 78.9 Neutrophils % (Manual) Band Neutrophils % Lymphocytes % 8.6 D Lymphocytes % (Manual) Monocytes % 10.5 H Monocytes % (Manual) Eosinophils % 1.3 Basophils % 0.7 Platelet Estimate PT with INR INR Anticoagulation Therapy No Result Required. Puncture Site Right radial ABG pH 7.42 D ABG pCO2 at Pt Temp 27.9 L D ABG pO2 at Pt Temp 74.5 L ABG HCO3 17.7 L ABG O2 Sat (Measured) 94.9 ABG O2 Content 11.1 L ABG Base Excess -5.6 L Barney Test Positive O2 Delivery Device Venti-mask Oxygen Flow Rate 50 % Vent Mode No Result Required. Vent Rate No Result Required. Mechanical Rate No Result Required. Pressure Support Vent No Result Required. Sodium Potassium Chloride Carbon Dioxide Anion Gap BUN Creatinine Creat Clearance w eGFR Random Glucose Lactic Acid Calcium Phosphorus 2.4 L Magnesium 1.8 Iron TIBC Iron Saturation Ferritin Total Bilirubin AST ALT Alkaline Phosphatase Creatine Kinase Troponin I B-Natriuretic Peptide Total Protein Albumin Lipase Urine Color Urine Appearance Urine pH Ur Specific [place] Urine Protein Urine Glucose (UA) Urine Ketones Urine Blood Urine Nitrite Urine Bilirubin Urine Urobilinogen Ur Leukocyte Esterase Urine WBC (Auto) Urine RBC (Auto) Ur Epithelial Cells Urine Bacteria Urine Mucus U Random Total Protein Ur Random Sodium Ur Random Urea Nitrogn Urine Creatinine Opiates Screen Methadone Screen Barbiturate Screen Phencyclidine Screen Ur Amphetamines Screen MDMA (Ecstasy) Screen Benzodiazepines Screen Cocaine Screen U Marijuana (THC) Screen 09/22/17 09/22/17 09/22/17 18:20 18:20 18:20 WBC 11.5 H RBC 2.46 L Hgb 7.8 L Hct 23.3 L MCV 94.5 MCH 31.9 MCHC 33.7 RDW 16.3 H Plt Count 391 MPV 8.8 Total Counted Neutrophils % 78.9 Neutrophils % (Manual) Band Neutrophils % Lymphocytes % 7.7 L Lymphocytes % (Manual) Monocytes % 12.4 H Monocytes % (Manual) Eosinophils % 0.7 Basophils % 0.3 Platelet Estimate PT with INR INR Anticoagulation Therapy Puncture Site ABG pH ABG pCO2 at Pt Temp ABG pO2 at Pt Temp ABG HCO3 ABG O2 Sat (Measured) ABG O2 Content ABG Base Excess Barney Test O2 Delivery Device Oxygen Flow Rate Vent Mode Vent Rate Mechanical Rate Pressure Support Vent Sodium 140 Potassium 4.4 Chloride 111 H Carbon Dioxide 20 L Anion Gap 9 BUN 17 Creatinine 1.1 H Creat Clearance w eGFR 51.57 Random Glucose 141 H Lactic Acid 0.9 Calcium 8.4 L Phosphorus Magnesium Iron TIBC Iron Saturation Ferritin Total Bilirubin 0.2 D AST 29 ALT 14 Alkaline Phosphatase 208 H Creatine Kinase Troponin I B-Natriuretic Peptide Total Protein 5.6 L Albumin 1.8 L Lipase Urine Color Urine Appearance Urine pH Ur Specific [place] Urine Protein Urine Glucose (UA) Urine Ketones Urine Blood Urine Nitrite Urine Bilirubin Urine Urobilinogen Ur Leukocyte Esterase Urine WBC (Auto) Urine RBC (Auto) Ur Epithelial Cells Urine Bacteria Urine Mucus U Random Total Protein Ur Random Sodium Ur Random Urea Nitrogn Urine Creatinine Opiates Screen Methadone Screen Barbiturate Screen Phencyclidine Screen Ur Amphetamines Screen MDMA (Ecstasy) Screen Benzodiazepines Screen Cocaine Screen U Marijuana (THC) Screen 09/22/17 09/23/17 09/23/17 18:20 06:03 06:03 WBC 14.5 H RBC 2.48 L Hgb 8.1 L Hct 23.4 L MCV 94.3 MCH 32.8 MCHC 34.7 RDW 15.9 H Plt Count 411 MPV 8.7 Total Counted Neutrophils % 86.4 H Neutrophils % (Manual) Band Neutrophils % Lymphocytes % 4.9 L D Lymphocytes % (Manual) Monocytes % 7.7 Monocytes % (Manual) Eosinophils % 0.8 Basophils % 0.2 Platelet Estimate PT with INR 14.20 H INR 1.26 H Anticoagulation Therapy Puncture Site ABG pH ABG pCO2 at Pt Temp ABG pO2 at Pt Temp ABG HCO3 ABG O2 Sat (Measured) ABG O2 Content ABG Base Excess Barney Test O2 Delivery Device Oxygen Flow Rate Vent Mode Vent Rate Mechanical Rate Pressure Support Vent Sodium 140 Potassium 4.3 Chloride 111 H Carbon Dioxide 23 Anion Gap 6 L BUN 16 Creatinine 1.1 H Creat Clearance w eGFR 51.57 Random Glucose 121 H Lactic Acid Calcium 8.4 L Phosphorus Magnesium 1.5 L Iron TIBC Iron Saturation Ferritin Total Bilirubin 0.3 D AST 18 ALT 15 Alkaline Phosphatase 192 H Creatine Kinase Troponin I B-Natriuretic Peptide 2502.59 H Total Protein 5.8 L Albumin 1.9 L Lipase Urine Color Urine Appearance Urine pH Ur Specific [place] Urine Protein Urine Glucose (UA) Urine Ketones Urine Blood Urine Nitrite Urine Bilirubin Urine Urobilinogen Ur Leukocyte Esterase Urine WBC (Auto) Urine RBC (Auto) Ur Epithelial Cells Urine Bacteria Urine Mucus U Random Total Protein Ur Random Sodium Ur Random Urea Nitrogn Urine Creatinine Opiates Screen Methadone Screen Barbiturate Screen Phencyclidine Screen Ur Amphetamines Screen MDMA (Ecstasy) Screen Benzodiazepines Screen Cocaine Screen U Marijuana (THC) Screen 09/24/17 09/24/17 09/24/17 05:00 05:00 21:28 WBC 10.0 D RBC 2.56 L Hgb 8.3 L Hct 23.9 L MCV 93.7 MCH 32.4 MCHC 34.6 RDW 15.7 H Plt Count 483 H MPV 8.2 Total Counted Neutrophils % 75.8 Neutrophils % (Manual) Band Neutrophils % Lymphocytes % 12.9 D Lymphocytes % (Manual) Monocytes % 9.9 Monocytes % (Manual) Eosinophils % 1.0 Basophils % 0.4 Platelet Estimate PT with INR INR Anticoagulation Therapy No Result Required. Puncture Site Left radial ABG pH 7.44 ABG pCO2 at Pt Temp 40.4 D ABG pO2 at Pt Temp 84.4 ABG HCO3 27.2 H ABG O2 Sat (Measured) 96.6 ABG O2 Content 10.9 L ABG Base Excess 3.3 H Barney Test Positive O2 Delivery Device Nasal Oxygen Flow Rate 3/fio2 Vent Mode No Result Required. Vent Rate No Result Required. Mechanical Rate No Result Required. Pressure Support Vent No Result Required. Sodium 136 Potassium 4.4 Chloride 102 Carbon Dioxide 25 Anion Gap 9 BUN 21 H Creatinine 1.1 H Creat Clearance w eGFR 51.57 Random Glucose 106 Lactic Acid Calcium 8.3 L Phosphorus 3.5 Magnesium 2.3 Iron TIBC Iron Saturation Ferritin Total Bilirubin 0.3 AST 24 ALT 19 Alkaline Phosphatase 171 H Creatine Kinase Troponin I B-Natriuretic Peptide Total Protein 6.2 L Albumin 2.0 L Lipase Urine Color Urine Appearance Urine pH Ur Specific [place] Urine Protein Urine Glucose (UA) Urine Ketones Urine Blood Urine Nitrite Urine Bilirubin Urine Urobilinogen Ur Leukocyte Esterase Urine WBC (Auto) Urine RBC (Auto) Ur Epithelial Cells Urine Bacteria Urine Mucus U Random Total Protein Ur Random Sodium Ur Random Urea Nitrogn Urine Creatinine Opiates Screen Methadone Screen Barbiturate Screen Phencyclidine Screen Ur Amphetamines Screen MDMA (Ecstasy) Screen Benzodiazepines Screen Cocaine Screen U Marijuana (THC) Screen 09/25/17 09/25/17 09:00 09:00 WBC 10.3 H RBC 2.71 L Hgb 8.8 L Hct 25.5 L MCV 94.0 MCH 32.3 MCHC 34.4 RDW 15.4 Plt Count 602 H D MPV 7.8 Total Counted Neutrophils % 77.9 Neutrophils % (Manual) Band Neutrophils % Lymphocytes % 12.8 Lymphocytes % (Manual) Monocytes % 7.3 Monocytes % (Manual) Eosinophils % 1.5 Basophils % 0.5 Platelet Estimate PT with INR INR Anticoagulation Therapy Puncture Site ABG pH ABG pCO2 at Pt Temp ABG pO2 at Pt Temp ABG HCO3 ABG O2 Sat (Measured) ABG O2 Content ABG Base Excess Barney Test O2 Delivery Device Oxygen Flow Rate Vent Mode Vent Rate Mechanical Rate Pressure Support Vent Sodium 137 Potassium 3.9 Chloride 99 Carbon Dioxide 27 Anion Gap 11 BUN 28 H Creatinine 1.2 H Creat Clearance w eGFR 46.64 Random Glucose 108 H Lactic Acid Calcium 8.9 Phosphorus Magnesium 2.0 Iron TIBC Iron Saturation Ferritin Total Bilirubin 0.2 D AST 22 ALT 23 Alkaline Phosphatase 166 H Creatine Kinase Troponin I B-Natriuretic Peptide Total Protein 7.3 Albumin 2.3 L Lipase Urine Color Urine Appearance Urine pH Ur Specific [place] Urine Protein Urine Glucose (UA) Urine Ketones Urine Blood Urine Nitrite Urine Bilirubin Urine Urobilinogen Ur Leukocyte Esterase Urine WBC (Auto) Urine RBC (Auto) Ur Epithelial Cells Urine Bacteria Urine Mucus U Random Total Protein Ur Random Sodium Ur Random Urea Nitrogn Urine Creatinine Opiates Screen Methadone Screen Barbiturate Screen Phencyclidine Screen Ur Amphetamines Screen MDMA (Ecstasy) Screen Benzodiazepines Screen Cocaine Screen U Marijuana (THC) Screen Problem List - Problems (1) ARF (acute renal failure) Code(s): N17.9 - ACUTE KIDNEY FAILURE, UNSPECIFIED (2) Acute on chronic diastolic (congestive) heart failure Code(s): I50.33 - ACUTE ON CHRONIC DIASTOLIC (CONGESTIVE) HEART FAILURE (3) Alcohol withdrawal Code(s): F10.239 - ALCOHOL DEPENDENCE WITH WITHDRAWAL, UNSPECIFIED (4) Anemia Code(s): D64.9 - ANEMIA, UNSPECIFIED (5) Anemia Code(s): D64.9 - ANEMIA, UNSPECIFIED (6) Anxiety and depression Code(s): F41.9 - ANXIETY DISORDER, UNSPECIFIED; F32.9 - MAJOR DEPRESSIVE DISORDER, SINGLE EPISODE, UNSPECIFIED (7) COPD (chronic obstructive pulmonary disease) Code(s): J44.9 - CHRONIC OBSTRUCTIVE PULMONARY DISEASE, UNSPECIFIED (8) HLD (hyperlipidemia) Code(s): E78.5 - HYPERLIPIDEMIA, UNSPECIFIED (9) HTN (hypertension) Code(s): I10 - ESSENTIAL (PRIMARY) HYPERTENSION (11) Hypomagnesemia Code(s): E83.42 - HYPOMAGNESEMIA (12) Pyelonephritis Code(s): N12 - TUBULO-INTERSTITIAL NEPHRITIS, NOT SPCF ACUTE OR CHRONIC (13) Sepsis Code(s): A41.9 - SEPSIS, UNSPECIFIED ORGANISM (14) Tachycardia Code(s): R00.0 - TACHYCARDIA, UNSPECIFIED (15) Alcohol dependence with uncomplicated withdrawal Code(s): F10.230 - ALCOHOL DEPENDENCE WITH WITHDRAWAL, UNCOMPLICATED (16) Acute alcoholic pancreatitis Code(s): K85.20 - ALCOHOL INDUCED ACUTE PANCREATITIS WITHOUT NECROSIS OR INFCT Qualifiers: Acute pancreatitis complication: unspecified Qualified Code(s): K85.20 - Alcohol induced acute pancreatitis without necrosis or infection (17) Cachexia Code(s): R64 - CACHEXIA (18) Diarrhea Code(s): R19.7 - DIARRHEA, UNSPECIFIED (19) Hypokalemia Code(s): E87.6 - HYPOKALEMIA (20) Malnutrition Code(s): E46 - UNSPECIFIED PROTEIN-CALORIE MALNUTRITION (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 Code(s): F15.10 - OTHER STIMULANT ABUSE, UNCOMPLICATED (22) Nicotine dependence Code(s): F17.200 - NICOTINE DEPENDENCE, UNSPECIFIED, UNCOMPLICATED Qualifiers: Nicotine product type: cigarettes Substance use status: uncomplicated Qualified Code(s): F17.210 - Nicotine dependence, cigarettes, uncomplicated (23) Substance induced mood disorder Code(s): F19.94 - OTH PSYCHOACTIVE SUBSTANCE USE, UNSP W MOOD DISORDER (24) Use of cane as ambulatory aid Code(s): R26.2 - DIFFICULTY IN WALKING, NOT ELSEWHERE CLASSIFIED (25) Weight loss Code(s): R63.4 - ABNORMAL WEIGHT LOSS Assessment/Plan IMP: Urosepsis and ETOH withdrawal causing sinus tachycardia resulting in acute on chronic valvular and diastolic CHF 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 monitor in ICU 2. Helm catheter 3. Abx, as per ID and PMD 4. Supplimental O2 5. Change Lasix to 40mg IV BID, strict Is/Os; daily electrolytes and BMP 6. off Amlodipine When acute infectious and withdrawal issues improved/resolved needs CT surgery and interventional cardiology consultation for options re. mitral valve. Currently not a candidate for any percutaneous or surgical interventions due to acute infection and active withdrawal. coverage for dr. Steele cc time spent 35 min
[2017-09-25] MEDS ORDERED: DEXTROSE 5%-WATER - 50 ML IVPB ONE (18:10)
[2017-09-25] MEDS ORDERED: cefTRIAXone SODIUM 1 GM VIAL ONE (18:10)
[2017-09-25] MEDS: CEFTRIAXONE 1 GM in DEXTROSE 5%-WATER - 50 ML IVPB SCH (18:13)
[2017-09-25] MEDS: THIAMINE HCL 100 MG TABLET (FP) PO SCH (23:08)
[2017-09-26] MEDS: FUROSEMIDE 40 MG/4 ML INJECTABLE VIAL IVPUSH SCH ×2 (06:16→14:00)
--- NOTE | 2017-09-26 08:42 | PN ---
Physical Exam: SUBJECTIVE: Patient seen and examined at the bedside. Awake, more alert. Eating breakfast. OBJECTIVE: Medical coverage for Dr. Colon Vital Signs Period Temp Pulse Resp BP Sys/Chávez Pulse Ox Last 24 Hr 98.5 F-99.1 F 80-102 18-23 87-101/57-70 97-99 GENERAL: The patient is awake, alert, and fully oriented, in no acute distress. HEAD: Normal with no signs of trauma. EYES: PERRL, extraocular movements intact, sclera anicteric, conjunctiva clear. No ptosis. ENT: Ears normal, nares patent, oropharynx clear without exudates, moist mucous membranes. NECK: Trachea midline, full range of motion, supple. LUNGS: Breath sounds equal, clear to auscultation anteriorly HEART: Regular rate and rhythm, S1, S2 without murmur, rub or gallop. ABDOMEN: Soft, nontender, nondistended, normoactive bowel sounds, no guarding, no rebound, no hepatosplenomegaly, no masses. EXTREMITIES: no edema. NEUROLOGICAL: Normal speech, gait not observed. PSYCH: Normal mood, normal affect. SKIN: Warm, dry, normal turgor, no rashes or lesions noted Laboratory Results - last 24 hr 09/25/17 09/25/17 09:00 09:00 WBC 10.3 H RBC 2.71 L Hgb 8.8 L Hct 25.5 L MCV 94.0 MCH 32.3 MCHC 34.4 RDW 15.4 Plt Count 602 H D MPV 7.8 Neutrophils % 77.9 Lymphocytes % 12.8 Monocytes % 7.3 Eosinophils % 1.5 Basophils % 0.5 Sodium 137 Potassium 3.9 Chloride 99 Carbon Dioxide 27 Anion Gap 11 BUN 28 H Creatinine 1.2 H Creat Clearance w eGFR 46.64 Random Glucose 108 H Calcium 8.9 Magnesium 2.0 Total Bilirubin 0.2 D AST 22 ALT 23 Alkaline Phosphatase 166 H Total Protein 7.3 Albumin 2.3 L Active Medications Generic Name Dose Route Start Last Admin Trade Name Freq PRN Reason Stop Dose Admin Albuterol/Ipratropium 1 amp 09/23/17 18:02 Duoneb - NEB Q12H PRN WHEEZING Cyanocobalamin 1,000 mcg 09/24/17 10:00 09/25/17 10:59 Vitamin B12 - PO 1,000 mcg DAILY DK Administration Folic Acid 1 mg 09/24/17 10:00 09/25/17 10:54 Folic Acid - PO 1 mg DAILY DK Administration Furosemide 40 mg 09/24/17 06:00 09/26/17 06:16 Lasix Injection - IVPUSH 40 mg BID@0600,1400 DK Administration Heparin Sodium (Porcine) 5,000 unit 09/23/17 22:00 09/25/17 23:08 Heparin - SQ 5,000 unit BID DK Administration Ceftriaxone Sodium 1 gm/ 50 mls @ 100 mls/hr 09/25/17 15:45 09/25/17 18:13 Dextrose IVPB 100 mls/hr DAILY DK Administration Magnesium Chloride 128 mg 09/24/17 10:00 09/25/17 10:59 Slow-Mag - PO 128 mg DAILY DK Administration Nicotine 7 mg 09/24/17 10:00 09/25/17 10:58 Nicoderm Patch - TD 7 mg DAILY DK Administration Nicotine Polacrilex 2 mg 09/23/17 18:02 Nicorette Gum - BUC Q2H PRN NICOTINE REPLACEMENT RX Multivit/Folic Acid/Iron 1 tab 09/24/17 10:00 09/25/17 10:59 Vitamins (Sjr) - PO 1 tab DAILY DK Administration Sertraline HCl 50 mg 09/24/17 10:00 09/25/17 10:54 Zoloft - PO 50 mg DAILY DK Administration Sodium Bicarbonate 650 mg 09/24/17 10:00 09/25/17 10:55 Sodium Bicarbonate - PO 650 mg DAILY DK Administration Thiamine HCl 100 mg 09/23/17 22:00 09/25/17 23:08 Vitamin B1 - PO 100 mg HS DK Administration ASSESSMENT/PLAN: Patient is a 56 year old female with a significant past medical history of hypertension, CAD s/p CABG, MVR and chronic ETOH abuse. She who was sent from outpatient rehab facility to [facility] when she was found to have tachycardia. She was noted to have an elevated BUN/Creatinine in the ED with hyponatremia. Imaging: CTA and abd CT s/f pulmonary vascular congestion, pleural effusions and perinephric fat stranding. ECHO severe mitral stenosis possibly d/t scarring from resection of mitral valve fibroelastoma. Renal: Pylelonephritis/urosepsis, acute Blood and urine cultures + for ecoli Repeat BC with no growth On Ceftriaxone per ID, CT scan shows perinephric fat stranding [place] cath with clear urine Monitor vitals, labs ID following Acute Kidney Injury Baseline creat 0.6, today 1.2 Monitor intake, output Avoid nephrotoxins continue greenwood Lasix BID Hyponatremia, resolved Card: Hypertension, hx Hypotension improving Monitor in the setting of sepsis Acute on chronic valvular and diastolic CHF on Lasix to be increased to BID as per cardiology Mitral stenosis as per echo Will need outpatient cardiology follow up for further workup/possible MV repair after acute infection resolves Cardiology notes reviewed Heme: Anemia, likely chronic On folic acid/ferrous sulfate Hmg/Hct low stable, will transfuse if hmg <8 Psyche ETOH abuse/withdrawal Was on Librium d/c planning likely to inpatient rehab F.E.N. Fluids: none Electrolytes: monitor Nutrition: low sodium diet Prophy; Heparin BID Disposition. full code. Visit type - Emergency Visit Emergency Visit: Yes ED Registration Date: 09/19/17 Care time: The patient presented to the Emergency Department on the above date and was hospitalized for further evaluation of their emergent condition. - New Patient This patient is new to me today: No - Critical Care Critical Care patient: No - Discharge Referral Referred to [facility] No
[2017-09-26 09:47] LABS: BASO % 0.6 % (0-2.0); EOS % 1.8 % (0-4.5); HEMOGLOBIN 8.6 GM/dL (10.7-15.3); LYMPH % 18.6 % (8-40); MCH 32.4 pg (25.7-33.7); MCHC 34.3 g/dl (32.0-36.0); MEAN CELL VOLUME 94.2 fl (80-96); MONO % 7.2 % (3.8-10.2); NEUT % 71.8 % (42.8-82.8); PLATELET COUNT 692 K/MM3 (134-434); RBC 2.66 M/mm3 (3.60-5.2); RDW 15.7 % (11.6-15.6); WHITE BLOOD COUNT 10.2 K/mm3 (4.0-10.0)
[2017-09-26] MEDS ORDERED: PT OWN MED DRAWER 7, Y5N ONE (09:48)
[2017-09-26] MEDS ORDERED: cefTRIAXone SODIUM 1 GM VIAL ONE (09:49)
[2017-09-26] MEDS ORDERED: DEXTROSE 5%-WATER - 50 ML IVPB ONE (09:49)
[2017-09-26] MEDS: SODIUM BICARBONATE 650 MG TABLET PO SCH (09:56)
[2017-09-26] MEDS: HEPARIN NA (PORCINE) 5,000 UNITS/ML 1ML VIAL SQ SCH ×2 (09:56→22:08)
[2017-09-26] MEDS: MAGNESIUM CL 64 MG TABLET.SA PO SCH (09:56)
[2017-09-26] MEDS: NICOTINE 7 MG/24 HOURS TOPICAL PATCH TD SCH (09:56)
[2017-09-26] MEDS: FOLIC ACID 1 MG TABLET (FP) PO SCH (09:56)
[2017-09-26] MEDS: SERTRALINE HCL 50 MG TABLET (FP) PO SCH (09:56)
[2017-09-26] MEDS: CEFTRIAXONE 1 GM in DEXTROSE 5%-WATER - 50 ML IVPB SCH (09:56)
[2017-09-26] MEDS: CYANOCOBALAMIN 1,000 MCG TABLET (FP) PO SCH (09:56)
[2017-09-26] MEDS: PRENATAL VITAMINS W/ FOLIC ACID TABLET (FP) PO SCH (09:56)
--- NOTE | 2017-09-26 10:11 | EKG ---
Test Reason : Blood Pressure : / mmHG Vent. Rate : 092 BPM Atrial Rate : 092 BPM P-R Int : 130 ms QRS Dur : 082 ms QT Int : 382 ms P-R-T Axes : 066 056 084 degrees QTc Int : 472 ms NORMAL SINUS RHYTHM POSSIBLE LEFT ATRIAL ENLARGEMENT LEFT VENTRICULAR HYPERTROPHY ABNORMAL ECG WHEN COMPARED WITH ECG OF 20-SEP-2017 12:04, NO SIGNIFICANT CHANGE WAS FOUND Confirmed by Jose A Mckoy MD ([id number]) on 09/26/2017 10:10:59 AM Referred By: Confirmed By:Jose A Mckoy MD
--- NOTE | 2017-09-26 10:44 | PN ---
[facility] Progress Note (SOAP) Subjective: no complaints Objective: 09/26/17 10:42 Vital Signs - 24 hr 09/25/17 09/25/17 09/25/17 13:32 18:00 22:00 Temperature 99 F Pulse Rate 93 H 96 H Respiratory 22 21 Rate Blood Pressure 87/57 101/70 O2 Sat by Pulse 99 Oximetry (%) 09/25/17 09/25/17 09/26/17 22:05 22:08 02:00 Temperature 99.1 F 99.1 F Pulse Rate 102 H 90 Respiratory 21 23 18 Rate Blood Pressure 94/63 101/66 O2 Sat by Pulse 99 Oximetry (%) 09/26/17 09/26/17 09/26/17 06:00 08:24 10:00 Temperature 98.5 F 98.7 F Pulse Rate 80 90 Respiratory 19 18 Rate Blood Pressure 91/62 96/65 O2 Sat by Pulse 98 Oximetry (%) Laboratory Results - last 24 hr 09/26/17 08:55 WBC 10.2 H RBC 2.66 L Hgb 8.6 L Hct 25.0 L MCV 94.2 MCH 32.4 MCHC 34.3 RDW 15.7 H Plt Count 692 H MPV 8.0 Neutrophils % 71.8 Lymphocytes % 18.6 D Monocytes % 7.2 Eosinophils % 1.8 Basophils % 0.6 anemia withlevate wbc remains, tachycardic w low grade fever, low bp Assessment: 09/26/17 10:43 alcohol use disorder, severe, completed detox no longer exhibiting withdrawal sx , refer to [facility] for intesnive outpatient care wher she is alreadyengaged. not medically strong enough fror inpatient rehab post dischaqrge. no further treatment for AUD indicated, cont fludis, mvi, nutritional supplementation
[2017-09-26 11:11] LABS: ALBUMIN 2.5 g/dl (3.4-5.0); ANION GAP 10 (8-16); BILIRUBIN,TOTAL 0.1 mg/dL (0.2-1.0); BLOOD UREA NITROGEN 30 mg/dL (7-18); CALCIUM 9.3 mg/dL (8.5-10.1); CHLORIDE 96 mmol/L (98-107); CO2 30 mmol/L (21-32); CREATININE 1.2 mg/dL (0.55-1.02); GLUCOSE,RANDOM 115 mg/dL (74-106); POTASSIUM 4.6 mmol/L (3.5-5.1); SGPT/ALT 18 U/L (12-78); SODIUM 136 mmol/L (136-145); TOT PROT 7.5 g/dl (6.4-8.2)
--- NOTE | 2017-09-26 11:11 | PN ---
Progress Note (short form) - Note Progress Note: Renal Follow up for DANIS Pt seen and examined at the bedside awake and alert denies any sob, chest pain, abd pain, N/V making urine greenwood in place Vital Signs Temperature 98.7 F 09/26/17 10:00 Pulse Rate 99 H 09/26/17 10:00 Respiratory Rate 20 09/26/17 10:00 Blood Pressure 96/65 09/26/17 10:00 O2 Sat by Pulse Oximetry (%) 98 09/26/17 10:00 Intake & Output 09/23/17 09/24/17 09/25/17 09/26/17 23:59 23:59 23:59 23:59 Intake Total 500 1295 250 175 Output Total 3900 1500 1240 800 Balance -3400 -205 -990 -625 Weight 51.301 kg 48.648 kg 49.532 kg mild respiratory distress tachycardic, no M/R CTA soft NT/ND NO LE edema CBC, BMP 09/26/17 08:55 Current Medications Albuterol/Ipratropium (Duoneb -) 1 amp NEB Q12H PRN PRN Reason: WHEEZING Cyanocobalamin (Vitamin B12 -) 1,000 mcg PO DAILY [facility] Last Admin: 09/26/17 09:56 Dose: 1,000 mcg Folic Acid (Folic Acid -) 1 mg PO DAILY [facility] Last Admin: 09/26/17 09:56 Dose: 1 mg Furosemide (Lasix Injection -) 40 mg IVPUSH BID@0600,1400 [facility] Last Admin: 09/26/17 06:16 Dose: 40 mg Heparin Sodium (Porcine) (Heparin -) 5,000 unit SQ BID DK Last Admin: 09/26/17 09:56 Dose: 5,000 unit Ceftriaxone Sodium 1 gm/ (Dextrose) 50 mls @ 100 mls/hr IVPB DAILY [facility] Last Admin: 09/26/17 09:56 Dose: 100 mls/hr Magnesium Chloride (Slow-Mag -) 128 mg PO DAILY [facility] Last Admin: 09/26/17 09:56 Dose: 128 mg Nicotine (Nicoderm Patch -) 7 mg TD DAILY [facility] Last Admin: 09/26/17 09:56 Dose: 7 mg Multivit/Folic Acid/Iron ( Vitamins (Sjr) -) 1 tab PO DAILY [facility] Last Admin: 09/26/17 09:56 Dose: 1 tab Sertraline HCl (Zoloft -) 50 mg PO DAILY [facility] Last Admin: 09/26/17 09:56 Dose: 50 mg Sodium Bicarbonate (Sodium Bicarbonate -) 650 mg PO DAILY [facility] Last Admin: 09/26/17 09:56 Dose: 650 mg Thiamine HCl (Vitamin B1 -) 100 mg PO HS [facility] Last Admin: 09/25/17 23:08 Dose: 100 mg 56 year old woman with PMhx of Hypertension, CAD s/p CABG, MVR, Chronic ETOH abuse who was sent from outpatient rehab with tachycardia and found to have BUN/ Cr of 24/1.4 and Na of 129. #DANIS (baseline Cr 0.6) likely secondary to volume depletion but now pt with contrast exposure #Hyponatremia (resolved) #Mild pulmonary congestion on imaging/CHF #Tachycardia #Metabolic acidosis (non-anion gap) #ETOH abuse/withdrawal #Adrenal Lesion #Suspected Pylonephritis Renal function remains stable as of yesterday (BUN rising) todays labs are pending if BUN/Cr trends up can consider holding Lasix this evening renal function remains worse then baseline at this time continue management as per cardiology further imaging of adrenal lesion once renal function improved continue Abx as per primary Thank you August Lowery DO
[2017-09-26 11:15] LABS: ALK PHOS 160 U/L (45-117); SGOT/AST 18 U/L (15-37)
--- NOTE | 2017-09-26 13:17 | PN ---
Progress Note, Physician Chief Complaint: Pt is more alert; no chest pain or dyspnea.She wants to return to rehab center, and says she is "through" with drinking. History of Present Illness: 56 yo black woman with h/o HTN, CAD ( s/p CABG), bioprosthetic MVR, diastolic CHF, chronic EtOH abuse, who presents with tachycardia. Patient reports one week of night sweats, increased confusion, tremors, SOB, BL chest tightness, and fatigue following home attempt at alcohol cessation. Chest pressure slightly improved and left sided with absent radiation. Reports Roque, and pleuritic chest pain. Also complains of visual hallucinations upon awakening. + chronic cough. 2 days of palpitations occurring intermittently, with no identifiable trigger or alleviators. Tobacco use 1/2 ppd 20 + years. Daily vodka use ( 1 pint per day) with last alcoholic beverage 7 days [employer]. Denies F/C , hemoptysis, wheezing, abdominal pain, diarrhea, constipation, lightheadedness , weakness, sensory changes, or convulsions. This AM patient went to outpt. rehab seeking medication treatment for withdrawal, but sent to ED d/t tachycardia ~120 on triage vitals. Currently not being treated for withdrawal. Denies recent travel or immobilization, h/o PE/DVT, hormone use, trauma or surgery within past 6 weeks, or h/o malignancy. - Current Medication List Current Medications: Active Medications Albuterol/Ipratropium (Duoneb -) 1 amp NEB Q12H PRN PRN Reason: WHEEZING Cyanocobalamin (Vitamin B12 -) 1,000 mcg PO DAILY [facility] Last Admin: 09/26/17 09:56 Dose: 1,000 mcg Folic Acid (Folic Acid -) 1 mg PO DAILY [facility] Last Admin: 09/26/17 09:56 Dose: 1 mg Furosemide (Lasix Injection -) 40 mg IVPUSH BID@0600,1400 [facility] Last Admin: 09/26/17 06:16 Dose: 40 mg Heparin Sodium (Porcine) (Heparin -) 5,000 unit SQ BID [facility] Last Admin: 09/26/17 09:56 Dose: 5,000 unit Ceftriaxone Sodium 1 gm/ (Dextrose) 50 mls @ 100 mls/hr IVPB DAILY [facility] Last Admin: 09/26/17 09:56 Dose: 100 mls/hr Magnesium Chloride (Slow-Mag -) 128 mg PO DAILY [facility] Last Admin: 09/26/17 09:56 Dose: 128 mg Nicotine (Nicoderm Patch -) 7 mg TD DAILY [facility] Last Admin: 09/26/17 09:56 Dose: 7 mg Multivit/Folic Acid/Iron ( Vitamins (Sjr) -) 1 tab PO DAILY [facility] Last Admin: 09/26/17 09:56 Dose: 1 tab Sertraline HCl (Zoloft -) 50 mg PO DAILY [facility] Last Admin: 09/26/17 09:56 Dose: 50 mg Sodium Bicarbonate (Sodium Bicarbonate -) 650 mg PO DAILY [facility] Last Admin: 09/26/17 09:56 Dose: 650 mg Thiamine HCl (Vitamin B1 -) 100 mg PO HS [facility] Last Admin: 09/25/17 23:08 Dose: 100 mg - Objective Vital Signs: Vital Signs Temperature 98.7 F 09/26/17 10:00 Pulse Rate 99 H 09/26/17 10:00 Respiratory Rate 20 09/26/17 10:00 Blood Pressure 96/65 09/26/17 10:00 O2 Sat by Pulse Oximetry (%) 98 09/26/17 10:00 Constitutional: Yes: Thin Eyes: Yes: WNL HENT: Yes: WNL Neck: Yes: WNL Cardiovascular: Yes: WNL Respiratory: Yes: Diminished (right baxe) Gastrointestinal: Yes: Soft ...Rectal Exam: Yes: Deferred Genitourinary: No: Anuria Breast(s): Yes: WNL Musculoskeletal: Yes: Muscle Weakness Extremities: Yes: Cool Edema: No Peripheral Pulses WNL: Yes Integumentary: Yes: WNL Neurological: Yes: Alert, Oriented, Weakness Psychiatric: Yes: Other (alcoholixm) Labs: CBC, BMP 09/26/17 08:55 09/26/17 10:15 INR, PTT INR 1.26 (0.82-1.09) H 09/22/17 18:20 - ....Imaging Chest X-ray: Image Reviewed (improved right base infiltrate) Problem List - Problems (1) History of mitral valve prosthesis Assessment/Plan: significant functional mitral stenosis (mean gradient 15 mmHg). (2) Alcohol withdrawal Assessment/Plan: Continue detox protocol. Plan for long-terem rehab. Code(s): F10.239 - ALCOHOL DEPENDENCE WITH WITHDRAWAL, UNSPECIFIED (3) Anemia Assessment/Plan: chronic =; f/u with responder. Code(s): D64.9 - ANEMIA, UNSPECIFIED (4) Anxiety and depression Assessment/Plan: On Zoloft. Detox protocol. Code(s): F41.9 - ANXIETY DISORDER, UNSPECIFIED; F32.9 - MAJOR DEPRESSIVE DISORDER, SINGLE EPISODE, UNSPECIFIED (5) COPD (chronic obstructive pulmonary disease) Code(s): J44.9 - CHRONIC OBSTRUCTIVE PULMONARY DISEASE, UNSPECIFIED (6) HLD (hyperlipidemia) Assessment/Plan: LDL cholester 74 mg/dL. 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 F/u all electrolytes. Code(s): E83.42 - HYPOMAGNESEMIA (14) Acute on chronic diastolic (congestive) heart failure Assessment/Plan: Continue minimal fluids, IV furosemide (can lower dose to 20 qd or bid). Is and Os, daily Is and Os, BUN/Cr, electrolytes (repleted Mg). Code(s): I50.33 - ACUTE ON CHRONIC DIASTOLIC (CONGESTIVE) HEART FAILURE
--- NOTE | 2017-09-26 14:39 | PN ---
Progress Note (short form) - Note Progress Note: Reports feeling better. No CP or SOB. No acute events overnight. Intake & Output 09/23/17 09/24/17 09/25/17 09/26/17 23:59 23:59 23:59 23:59 Intake Total 500 1295 250 175 Output Total 3900 1500 1240 1600 Balance -3400 -205 -990 -1425 Weight 113 lb 1.6 oz 107 lb 4 oz 109 lb 3.2 oz Last Vital Signs Temp Pulse Resp BP Pulse Ox 98.6 F 96 H 18 102/72 98 09/26/17 14:00 09/26/17 14:00 09/26/17 14:00 09/26/17 14:00 09/26/17 10:00 Active Medications Albuterol/Ipratropium (Duoneb -) 1 amp NEB Q12H PRN PRN Reason: WHEEZING Cyanocobalamin (Vitamin B12 -) 1,000 mcg PO DAILY [facility] Last Admin: 09/26/17 09:56 Dose: 1,000 mcg Folic Acid (Folic Acid -) 1 mg PO DAILY [facility] Last Admin: 09/26/17 09:56 Dose: 1 mg Furosemide (Lasix Injection -) 40 mg IVPUSH BID@0600,1400 [facility] Last Admin: 09/26/17 06:16 Dose: 40 mg Heparin Sodium (Porcine) (Heparin -) 5,000 unit SQ BID [facility] Last Admin: 09/26/17 09:56 Dose: 5,000 unit Ceftriaxone Sodium 1 gm/ (Dextrose) 50 mls @ 100 mls/hr IVPB DAILY [facility] Last Admin: 09/26/17 09:56 Dose: 100 mls/hr Magnesium Chloride (Slow-Mag -) 128 mg PO DAILY [facility] Last Admin: 09/26/17 09:56 Dose: 128 mg Nicotine (Nicoderm Patch -) 7 mg TD DAILY [facility] Last Admin: 09/26/17 09:56 Dose: 7 mg Multivit/Folic Acid/Iron ( Vitamins (Sjr) -) 1 tab PO DAILY [facility] Last Admin: 09/26/17 09:56 Dose: 1 tab Sertraline HCl (Zoloft -) 50 mg PO DAILY [facility] Last Admin: 09/26/17 09:56 Dose: 50 mg Sodium Bicarbonate (Sodium Bicarbonate -) 650 mg PO DAILY [facility] Last Admin: 09/26/17 09:56 Dose: 650 mg Thiamine HCl (Vitamin B1 -) 100 mg PO HS [facility]K Last Admin: 09/25/17 23:08 Dose: 100 mg Gen: NAD, Heart: S1S2, regular Lung: decreased breath sounds at the bases Abd: soft, nontender Ext: no edema Laboratory Results - last 24 hr 09/26/17 09/26/17 08:55 10:15 WBC 10.2 H RBC 2.66 L Hgb 8.6 L Hct 25.0 L MCV 94.2 MCH 32.4 MCHC 34.3 RDW 15.7 H Plt Count 692 H MPV 8.0 Neutrophils % 71.8 Lymphocytes % 18.6 D Monocytes % 7.2 Eosinophils % 1.8 Basophils % 0.6 Sodium 136 Potassium 4.6 Chloride 96 L Carbon Dioxide 30 Anion Gap 10 BUN 30 H Creatinine 1.2 H Creat Clearance w eGFR 46.64 Random Glucose 115 H Calcium 9.3 Magnesium 2.0 Total Bilirubin 0.1 L D AST 18 ALT 18 Alkaline Phosphatase 160 H Total Protein 7.5 Albumin 2.5 L A/P Altered Mental Status improved UTI Gram Negative Bacteremia Sepsis Acute Kidney Injury improving CAD s/p CABG h/o MVR Pulmonary HTN Acute on Chronic LV Diastolic Heart Failure Alcohol Abuse - ABX - Lasix - monitor urine output, creatinine - O2 to keep SpO2 >90% - librium as needed - DVT prophylaxis Dr Farrell
--- NOTE | 2017-09-26 14:39 | PN ---
Progress Note, Physician History of Present Illness: much more awake and alert no complaints still weak - Current Medication List Current Medications: Active Medications Albuterol/Ipratropium (Duoneb -) 1 amp NEB Q12H PRN PRN Reason: WHEEZING Cyanocobalamin (Vitamin B12 -) 1,000 mcg PO DAILY [facility] Last Admin: 09/26/17 09:56 Dose: 1,000 mcg Folic Acid (Folic Acid -) 1 mg PO DAILY [facility] Last Admin: 09/26/17 09:56 Dose: 1 mg Furosemide (Lasix Injection -) 40 mg IVPUSH BID@0600,1400 [facility] Last Admin: 09/26/17 06:16 Dose: 40 mg Heparin Sodium (Porcine) (Heparin -) 5,000 unit SQ BID [facility] Last Admin: 09/26/17 09:56 Dose: 5,000 unit Ceftriaxone Sodium 1 gm/ (Dextrose) 50 mls @ 100 mls/hr IVPB DAILY [facility] Last Admin: 09/26/17 09:56 Dose: 100 mls/hr Magnesium Chloride (Slow-Mag -) 128 mg PO DAILY [facility] Last Admin: 09/26/17 09:56 Dose: 128 mg Nicotine (Nicoderm Patch -) 7 mg TD DAILY [facility] Last Admin: 09/26/17 09:56 Dose: 7 mg Multivit/Folic Acid/Iron ( Vitamins (Sjr) -) 1 tab PO DAILY [facility] Last Admin: 09/26/17 09:56 Dose: 1 tab Sertraline HCl (Zoloft -) 50 mg PO DAILY [facility] Last Admin: 09/26/17 09:56 Dose: 50 mg Sodium Bicarbonate (Sodium Bicarbonate -) 650 mg PO DAILY [facility] Last Admin: 09/26/17 09:56 Dose: 650 mg Thiamine HCl (Vitamin B1 -) 100 mg PO HS [facility] Last Admin: 09/25/17 23:08 Dose: 100 mg - Objective Vital Signs: Vital Signs Temperature 98.6 F 09/26/17 14:00 Pulse Rate 96 H 09/26/17 14:00 Respiratory Rate 18 09/26/17 14:00 Blood Pressure 102/72 09/26/17 14:00 O2 Sat by Pulse Oximetry (%) 98 09/26/17 10:00 Constitutional: Yes: No Distress, Calm Eyes: Yes: Conjunctiva Clear Cardiovascular: Yes: Regular Rate and Rhythm Respiratory: Yes: Regular, CTA Bilaterally, On Nasal O2 Gastrointestinal: Yes: Normal Bowel Sounds, Soft Extremities: Yes: WNL Neurological: Yes: Alert Psychiatric: Yes: Alert Labs: CBC, BMP 09/26/17 08:55 09/26/17 10:15 INR, PTT INR 1.26 (0.82-1.09) H 09/22/17 18:20 Assessment/Plan patient with gm negative bacteremia and uti currently lethargic and hypoxic gm negative bacteremia uti hypoxia lethargy drug abuse etoh abuse ams improved cx reports noted plan continue abx rest continue current mgmt patient starting to improve rest as per icu
[2017-09-26] MEDS: THIAMINE HCL 100 MG TABLET (FP) PO SCH (22:08)
[2017-09-27] MEDS: FUROSEMIDE 40 MG/4 ML INJECTABLE VIAL IVPUSH SCH ×2 (06:17→14:03)
[2017-09-27 07:48] LABS: ALBUMIN 2.6 g/dl (3.4-5.0); ANION GAP 8 (8-16); BLOOD UREA NITROGEN 36 mg/dL (7-18); CALCIUM 9.3 mg/dL (8.5-10.1); CHLORIDE 96 mmol/L (98-107); CO2 30 mmol/L (21-32); GLUCOSE,RANDOM 122 mg/dL (74-106); POTASSIUM 4.8 mmol/L (3.5-5.1); SODIUM 134 mmol/L (136-145)
[2017-09-27 07:53] LABS: ALK PHOS 145 U/L (45-117); BILIRUBIN,TOTAL 0.1 mg/dL (0.2-1.0); PHOSPHOROUS 4.9 mg/dL (2.5-4.9); SGOT/AST 15 U/L (15-37); SGPT/ALT 14 U/L (12-78); TOT PROT 7.3 g/dl (6.4-8.2)
[2017-09-27] MEDS ORDERED: DEXTROSE 5%-WATER - 50 ML IVPB ONE (08:22)
[2017-09-27] MEDS ORDERED: cefTRIAXone SODIUM 1 GM VIAL ONE (08:22)
[2017-09-27] MEDS ORDERED: PT OWN MED DRAWER 7, Y5N ONE ×2 (08:28→09:42)
[2017-09-27] MEDS: SODIUM BICARBONATE 650 MG TABLET PO SCH (09:45)
[2017-09-27] MEDS: SERTRALINE HCL 50 MG TABLET (FP) PO SCH (09:45)
[2017-09-27] MEDS: FOLIC ACID 1 MG TABLET (FP) PO SCH (09:45)
[2017-09-27] MEDS: HEPARIN NA (PORCINE) 5,000 UNITS/ML 1ML VIAL SQ SCH ×2 (09:45→21:39)
[2017-09-27] MEDS: CEFTRIAXONE 1 GM in DEXTROSE 5%-WATER - 50 ML IVPB SCH (09:46)
[2017-09-27] MEDS: CYANOCOBALAMIN 1,000 MCG TABLET (FP) PO SCH (09:47)
[2017-09-27] MEDS: PRENATAL VITAMINS W/ FOLIC ACID TABLET (FP) PO SCH (09:47)
[2017-09-27] MEDS: NICOTINE 7 MG/24 HOURS TOPICAL PATCH TD SCH (09:47)
[2017-09-27] MEDS: MAGNESIUM CL 64 MG TABLET.SA PO SCH (09:47)
--- NOTE | 2017-09-27 10:43 | PN ---
Progress Note, Physician History of Present Illness: awake and alert no complaints still weak - Current Medication List Current Medications: Active Medications Albuterol/Ipratropium (Duoneb -) 1 amp NEB Q12H PRN PRN Reason: WHEEZING Cyanocobalamin (Vitamin B12 -) 1,000 mcg PO DAILY [facility] Last Admin: 09/27/17 09:47 Dose: 1,000 mcg Folic Acid (Folic Acid -) 1 mg PO DAILY [facility] Last Admin: 09/27/17 09:45 Dose: 1 mg Furosemide (Lasix Injection -) 40 mg IVPUSH BID@0600,1400 [facility] Last Admin: 09/27/17 06:17 Dose: 40 mg Heparin Sodium (Porcine) (Heparin -) 5,000 unit SQ BID [facility] Last Admin: 09/27/17 09:45 Dose: 5,000 unit Ceftriaxone Sodium 1 gm/ (Dextrose) 50 mls @ 100 mls/hr IVPB DAILY [facility] Last Admin: 09/27/17 09:46 Dose: 100 mls/hr Magnesium Chloride (Slow-Mag -) 128 mg PO DAILY [facility] Last Admin: 09/27/17 09:47 Dose: 128 mg Nicotine (Nicoderm Patch -) 7 mg TD DAILY [facility] Last Admin: 09/27/17 09:47 Dose: 7 mg Multivit/Folic Acid/Iron ( Vitamins (Sjr) -) 1 tab PO DAILY [facility] Last Admin: 09/27/17 09:47 Dose: 1 tab Sertraline HCl (Zoloft -) 50 mg PO DAILY [facility] Last Admin: 09/27/17 09:45 Dose: 50 mg Sodium Bicarbonate (Sodium Bicarbonate -) 650 mg PO DAILY [facility] Last Admin: 09/27/17 09:45 Dose: 650 mg Thiamine HCl (Vitamin B1 -) 100 mg PO [facility] Last Admin: 09/26/17 22:08 Dose: 100 mg - Objective Vital Signs: Vital Signs Temperature 98.4 F 09/27/17 09:18 Pulse Rate 94 H 09/27/17 09:18 Respiratory Rate 22 09/27/17 09:18 Blood Pressure 110/98 09/27/17 09:18 O2 Sat by Pulse Oximetry (%) 94 L 09/27/17 10:07 Constitutional: Yes: No Distress, Calm HENT: Yes: Atraumatic Cardiovascular: Yes: Regular Rate and Rhythm Respiratory: Yes: Regular, CTA Bilaterally Gastrointestinal: Yes: Normal Bowel Sounds, Soft Musculoskeletal: Yes: Muscle Weakness Extremities: Yes: Other Neurological: Yes: Alert, Oriented Psychiatric: Yes: Alert, Oriented Labs: CBC, BMP 09/26/17 08:55 09/27/17 06:05 INR, PTT INR 1.26 (0.82-1.09) H 09/22/17 18:20 Assessment/Plan patient with gm negative bacteremia and uti gm negative bacteremia uti hypoxia lethargy drug abuse etoh abuse ams improved repeat cx negative plan continue abx rest continue current mgmt patient starting to improve rest as per icu
--- NOTE | 2017-09-27 10:57 | PN ---
Progress Note, Physician History of Present Illness: The patient is a 56 year old female, with a significant past medical history of HTN, CAD ( s/p CABG), MVR, chronic EtoH abuse, who presents to the emergency department with tachycardia, following alcohol cessation. Patient reports having vodka use (1 pint per day) last beverage 7 days. She reports since having nauesa, retching, sweating, chills, tremors, and vomiting. She denies auditory and visual hallucinations. She does endorse feeling a little confused in addition to her other complaints. She denies recent fevers, chills, headache or dizziness. Allergies: NKA Past surgical history: None reported. Social history: See [facility] Primary Care Physician: - Current Medication List Current Medications: Active Medications Albuterol/Ipratropium (Duoneb -) 1 amp NEB Q12H PRN PRN Reason: WHEEZING Cyanocobalamin (Vitamin B12 -) 1,000 mcg PO DAILY [facility] Last Admin: 09/27/17 09:47 Dose: 1,000 mcg Folic Acid (Folic Acid -) 1 mg PO DAILY [facility] Last Admin: 09/27/17 09:45 Dose: 1 mg Furosemide (Lasix Injection -) 40 mg IVPUSH BID@0600,1400 [facility] Last Admin: 09/27/17 06:17 Dose: 40 mg Heparin Sodium (Porcine) (Heparin -) 5,000 unit SQ BID [facility] Last Admin: 09/27/17 09:45 Dose: 5,000 unit Ceftriaxone Sodium 1 gm/ (Dextrose) 50 mls @ 100 mls/hr IVPB DAILY [facility] Last Admin: 09/27/17 09:46 Dose: 100 mls/hr Magnesium Chloride (Slow-Mag -) 128 mg PO DAILY [facility] Last Admin: 09/27/17 09:47 Dose: 128 mg Nicotine (Nicoderm Patch -) 7 mg TD DAILY [facility] Last Admin: 09/27/17 09:47 Dose: 7 mg Multivit/Folic Acid/Iron ( Vitamins (Sjr) -) 1 tab PO DAILY [facility] Last Admin: 09/27/17 09:47 Dose: 1 tab Sertraline HCl (Zoloft -) 50 mg PO DAILY [facility] Last Admin: 09/27/17 09:45 Dose: 50 mg Sodium Bicarbonate (Sodium Bicarbonate -) 650 mg PO DAILY [facility] Last Admin: 09/27/17 09:45 Dose: 650 mg Thiamine HCl (Vitamin B1 -) 100 mg PO HS [facility] Last Admin: 09/26/17 22:08 Dose: 100 mg - Objective Vital Signs: Vital Signs Temperature 98.4 F 09/27/17 09:18 Pulse Rate 94 H 09/27/17 09:18 Respiratory Rate 22 09/27/17 09:18 Blood Pressure 110/98 09/27/17 09:18 O2 Sat by Pulse Oximetry (%) 94 L 09/27/17 10:07 Eyes: Yes: WNL, Conjunctiva Clear, EOM Intact HENT: Yes: WNL, Atraumatic, Normocephalic Neck: Yes: WNL, Supple, Trachea Midline Cardiovascular: Yes: WNL, Regular Rate and Rhythm Respiratory: Yes: WNL, Regular, CTA Bilaterally Gastrointestinal: Yes: WNL, Normal Bowel Sounds Genitourinary: Yes: WNL Musculoskeletal: Yes: WNL Extremities: Yes: WNL Edema: No Integumentary: Yes: WNL Neurological: Yes: WNL, Alert, Oriented ...Motor Strength: WNL Psychiatric: Yes: WNL Labs: CBC, BMP 09/26/17 08:55 09/27/17 06:05 INR, PTT INR 1.26 (0.82-1.09) H 09/22/17 18:20 Problem List - Problems (1) ARF (acute renal failure) Code(s): N17.9 - ACUTE KIDNEY FAILURE, UNSPECIFIED (2) Acute on chronic diastolic (congestive) heart failure Code(s): I50.33 - ACUTE ON CHRONIC DIASTOLIC (CONGESTIVE) HEART FAILURE (3) Alcohol withdrawal Code(s): F10.239 - ALCOHOL DEPENDENCE WITH WITHDRAWAL, UNSPECIFIED (4) Anemia Code(s): D64.9 - ANEMIA, UNSPECIFIED (5) Anemia Code(s): D64.9 - ANEMIA, UNSPECIFIED (6) Anxiety and depression Code(s): F41.9 - ANXIETY DISORDER, UNSPECIFIED; F32.9 - MAJOR DEPRESSIVE DISORDER, SINGLE EPISODE, UNSPECIFIED (7) COPD (chronic obstructive pulmonary disease) Code(s): J44.9 - CHRONIC OBSTRUCTIVE PULMONARY DISEASE, UNSPECIFIED (8) HLD (hyperlipidemia) Code(s): E78.5 - HYPERLIPIDEMIA, UNSPECIFIED (9) HTN (hypertension) Code(s): I10 - ESSENTIAL (PRIMARY) HYPERTENSION (11) Hypomagnesemia Code(s): E83.42 - HYPOMAGNESEMIA (12) Pyelonephritis Code(s): N12 - TUBULO-INTERSTITIAL NEPHRITIS, NOT SPCF ACUTE OR CHRONIC (13) Sepsis Code(s): A41.9 - SEPSIS, UNSPECIFIED ORGANISM (14) Tachycardia Code(s): R00.0 - TACHYCARDIA, UNSPECIFIED (15) Alcohol dependence with uncomplicated withdrawal Code(s): F10.230 - ALCOHOL DEPENDENCE WITH WITHDRAWAL, UNCOMPLICATED (16) Acute alcoholic pancreatitis Code(s): K85.20 - ALCOHOL INDUCED ACUTE PANCREATITIS WITHOUT NECROSIS OR INFCT Qualifiers: Acute pancreatitis complication: unspecified Qualified Code(s): K85.20 - Alcohol induced acute pancreatitis without necrosis or infection (17) Cachexia Code(s): R64 - CACHEXIA (18) Diarrhea Code(s): R19.7 - DIARRHEA, UNSPECIFIED (19) Hypokalemia Code(s): E87.6 - HYPOKALEMIA (20) Malnutrition Code(s): E46 - UNSPECIFIED PROTEIN-CALORIE MALNUTRITION (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 Code(s): F15.10 - OTHER STIMULANT ABUSE, UNCOMPLICATED (22) Nicotine dependence Code(s): F17.200 - NICOTINE DEPENDENCE, UNSPECIFIED, UNCOMPLICATED Qualifiers: Nicotine product type: cigarettes Substance use status: uncomplicated Qualified Code(s): F17.210 - Nicotine dependence, cigarettes, uncomplicated (23) Substance induced mood disorder Code(s): F19.94 - OTH PSYCHOACTIVE SUBSTANCE USE, UNSP W MOOD DISORDER (24) Use of cane as ambulatory aid Code(s): R26.2 - DIFFICULTY IN WALKING, NOT ELSEWHERE CLASSIFIED (25) Weight loss Code(s): R63.4 - ABNORMAL WEIGHT LOSS Assessment/Plan - Problems (1) History of mitral valve prosthesis Assessment/Plan: significant functional mitral stenosis (mean gradient 15 mmHg). (2) Alcohol withdrawal Assessment/Plan: Continue detox protocol. Plan for long-terem rehab. Code(s): F10.239 - ALCOHOL DEPENDENCE WITH WITHDRAWAL, UNSPECIFIED (3) Anemia Assessment/Plan: chronic =; f/u with m[facility] tender restoration labor. Code(s): D64.9 - ANEMIA, UNSPECIFIED (4) Anxiety and depression Assessment/Plan: On Zoloft. Detox protocol. Code(s): F41.9 - ANXIETY DISORDER, UNSPECIFIED; F32.9 - MAJOR DEPRESSIVE DISORDER, SINGLE EPISODE, UNSPECIFIED (5) COPD (chronic obstructive pulmonary disease) Code(s): J44.9 - CHRONIC OBSTRUCTIVE PULMONARY DISEASE, UNSPECIFIED (6) HLD (hyperlipidemia) Assessment/Plan: LDL cholester 74 mg/dL. 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 F/u all electrolytes. Code(s): E83.42 - HYPOMAGNESEMIA (14) Acute on chronic diastolic (congestive) heart failure Assessment/Plan: Continue minimal fluids, IV furosemide (can lower dose to 20 qd or bid). Is and Os, daily Is and Os, BUN/Cr, electrolytes (repleted Mg). Code(s): I50.33 - ACUTE ON CHRONIC DIASTOLIC (CONGESTIVE) HEART FAILURE
--- NOTE | 2017-09-27 13:20 | EKG ---
Test Reason : Blood Pressure : / mmHG Vent. Rate : 123 BPM Atrial Rate : 123 BPM P-R Int : 146 ms QRS Dur : 080 ms QT Int : 320 ms P-R-T Axes : 056 058 093 degrees QTc Int : 458 ms SINUS TACHYCARDIA POSSIBLE LEFT ATRIAL ENLARGEMENT NONSPECIFIC T WAVE ABNORMALITY ABNORMAL ECG WHEN COMPARED WITH ECG OF 19-SEP-2017 11:08, NO SIGNIFICANT CHANGE WAS FOUND Confirmed by LIZZETH SOLIS MD ([id number]) on 09/27/2017 1:20:01 PM Referred By: Confirmed By:LIZZETH SOLIS MD
--- NOTE | 2017-09-27 17:39 | PN ---
Progress Note (short form) - Note Progress Note: Renal Follow up for DANIS Pt seen and examined at the bedside no acute complaints no sob, chest pain making urine Vital Signs Temperature 98.4 F 09/27/17 09:18 Pulse Rate 94 H 09/27/17 13:46 Respiratory Rate 17 09/27/17 13:46 Blood Pressure 94/68 09/27/17 13:46 O2 Sat by Pulse Oximetry (%) 96 09/27/17 13:26 Intake & Output 09/24/17 09/25/17 09/26/17 09/27/17 23:59 23:59 23:59 23:59 Intake Total 1295 250 175 450 Output Total 1500 1240 1600 1350 Balance -205 -257 -3164 -900 Weight 51.301 kg 48.648 kg 49.532 kg 50.258 kg NAD RRR CTA soft NT/ND NO LE edema CBC, BMP 09/26/17 08:55 09/27/17 06:05 Current Medications Albuterol/Ipratropium (Duoneb -) 1 amp NEB Q12H PRN PRN Reason: WHEEZING Cyanocobalamin (Vitamin B12 -) 1,000 mcg PO DAILY [facility] Last Admin: 09/27/17 09:47 Dose: 1,000 mcg Folic Acid (Folic Acid -) 1 mg PO DAILY [facility] Last Admin: 09/27/17 09:45 Dose: 1 mg Furosemide (Lasix Injection -) 20 mg IVPUSH BID@0600,1400 [facility] Last Admin: 09/27/17 14:03 Dose: 20 mg Heparin Sodium (Porcine) (Heparin -) 5,000 unit SQ BID [facility] Last Admin: 09/27/17 09:45 Dose: 5,000 unit Ceftriaxone Sodium 1 gm/ (Dextrose) 50 mls @ 100 mls/hr IVPB DAILY [facility] Last Admin: 09/27/17 09:46 Dose: 100 mls/hr Magnesium Chloride (Slow-Mag -) 128 mg PO DAILY [facility] Last Admin: 09/27/17 09:47 Dose: 128 mg Nicotine (Nicoderm Patch -) 7 mg TD DAILY [facility] Last Admin: 09/27/17 09:47 Dose: 7 mg Multivit/Folic Acid/Iron ( Vitamins (Sjr) -) 1 tab PO DAILY [facility] Last Admin: 09/27/17 09:47 Dose: 1 tab Sertraline HCl (Zoloft -) 50 mg PO DAILY [facility] Last Admin: 09/27/17 09:45 Dose: 50 mg Sodium Bicarbonate (Sodium Bicarbonate -) 650 mg PO DAILY [facility] Last Admin: 09/27/17 09:45 Dose: 650 mg Thiamine HCl (Vitamin B1 -) 100 mg PO HS [facility] Last Admin: 09/26/17 22:08 Dose: 100 mg 56 year old woman with PMhx of Hypertension, CAD s/p CABG, MVR, Chronic ETOH abuse who was sent from outpatient rehab with tachycardia and found to have BUN/ Cr of 24/1.4 and Na of 129. #DANIS (baseline Cr 0.6) likely secondary to volume depletion but now pt with contrast exposure #Hyponatremia (resolved) #Mild pulmonary congestion on imaging/CHF #Tachycardia #Metabolic acidosis (non-anion gap) #ETOH abuse/withdrawal #Adrenal Lesion #Suspected Pylonephritis Cr is stable, BUN trending up in setting of diuresis can consider change to oral lasix as pt appears evolemic at the present time Renal function and electrolytes Renal imaging once Cr at baseline of 0.6-0.8 continue Abx as per ID Thank you August Lowery DO
[2017-09-27] MEDS: ALBUTEROL SO4 2.5/IPRATROPIUM 0.5 INH SOL 3 ML VIAL.NEB. NEB PRN (21:08)
[2017-09-27] MEDS: THIAMINE HCL 100 MG TABLET (FP) PO SCH (21:39)
--- NOTE | 2017-09-27 21:41 | PN ---
Progress Note, Physician History of Present Illness: No new complaints - Current Medication List Current Medications: Active Medications Albuterol/Ipratropium (Duoneb -) 1 amp NEB Q12H PRN PRN Reason: WHEEZING Last Admin: 09/27/17 21:08 Dose: 1 amp Cyanocobalamin (Vitamin B12 -) 1,000 mcg PO DAILY [facility] Last Admin: 09/27/17 09:47 Dose: 1,000 mcg Folic Acid (Folic Acid -) 1 mg PO DAILY [facility] Last Admin: 09/27/17 09:45 Dose: 1 mg Furosemide (Lasix Injection -) 20 mg IVPUSH BID@0600,1400 [facility] Last Admin: 09/27/17 14:03 Dose: 20 mg Heparin Sodium (Porcine) (Heparin -) 5,000 unit SQ BID [facility] Last Admin: 09/27/17 21:39 Dose: 5,000 unit Ceftriaxone Sodium 1 gm/ (Dextrose) 50 mls @ 100 mls/hr IVPB DAILY [facility] Last Admin: 09/27/17 09:46 Dose: 100 mls/hr Magnesium Chloride (Slow-Mag -) 128 mg PO DAILY [facility] Last Admin: 09/27/17 09:47 Dose: 128 mg Nicotine (Nicoderm Patch -) 7 mg TD DAILY [facility] Last Admin: 09/27/17 09:47 Dose: 7 mg Multivit/Folic Acid/Iron ( Vitamins (Sjr) -) 1 tab PO DAILY [facility] Last Admin: 09/27/17 09:47 Dose: 1 tab Sertraline HCl (Zoloft -) 50 mg PO DAILY [facility] Last Admin: 09/27/17 09:45 Dose: 50 mg Sodium Bicarbonate (Sodium Bicarbonate -) 650 mg PO DAILY [facility] Last Admin: 09/27/17 09:45 Dose: 650 mg Thiamine HCl (Vitamin B1 -) 100 mg PO HS [facility] Last Admin: 09/27/17 21:39 Dose: 100 mg - Objective Vital Signs: Vital Signs Temperature 97.0 F L 09/27/17 18:00 Pulse Rate 86 09/27/17 18:00 Respiratory Rate 18 09/27/17 18:00 Blood Pressure 94/66 09/27/17 18:00 O2 Sat by Pulse Oximetry (%) 96 09/27/17 13:26 Constitutional: Yes: Cachectic Neck: Yes: WNL, Supple Cardiovascular: Yes: WNL, Regular Rate and Rhythm Respiratory: Yes: WNL, Regular, CTA Bilaterally Gastrointestinal: Yes: WNL, Normal Bowel Sounds, Soft Labs: CBC, BMP 09/26/17 08:55 09/27/17 06:05 INR, PTT INR 1.26 (0.82-1.09) H 09/22/17 18:20 Problem List - Problems (1) Sepsis Assessment/Plan: Cont IV ceftriaxone BC/Urine culture (+) for E.Coli Repeat BC remain negative Code(s): A41.9 - SEPSIS, UNSPECIFIED ORGANISM (2) Tachycardia Assessment/Plan: Resolved Multifactorial Due to etoh withdrawal Code(s): R00.0 - TACHYCARDIA, UNSPECIFIED (3) ARF (acute renal failure) Assessment/Plan: Cont to monitor labs Code(s): N17.9 - ACUTE KIDNEY FAILURE, UNSPECIFIED (4) HLD (hyperlipidemia) Code(s): E78.5 - HYPERLIPIDEMIA, UNSPECIFIED (5) COPD (chronic obstructive pulmonary disease) Code(s): J44.9 - CHRONIC OBSTRUCTIVE PULMONARY DISEASE, UNSPECIFIED (6) Anemia Assessment/Plan: Cont folic acid/ferrous sulfate Monitor H/H Code(s): D64.9 - ANEMIA, UNSPECIFIED (7) Anxiety and depression Assessment/Plan: Cont zoloft Code(s): F41.9 - ANXIETY DISORDER, UNSPECIFIED; F32.9 - MAJOR DEPRESSIVE DISORDER, SINGLE EPISODE, UNSPECIFIED (8) Alcohol withdrawal Assessment/Plan: Cont was detoxed w/ librium Agree w/ dc planning to inpt rehab Cont thiamine/folic acid Code(s): F10.239 - ALCOHOL DEPENDENCE WITH WITHDRAWAL, UNSPECIFIED (9) HTN (hypertension) Code(s): I10 - ESSENTIAL (PRIMARY) HYPERTENSION (10) Cachexia Code(s): R64 - CACHEXIA
[2017-09-28] MEDS: FUROSEMIDE 40 MG/4 ML INJECTABLE VIAL IVPUSH SCH ×2 (05:56→13:46)
[2017-09-28] MEDS: ALBUTEROL SO4 2.5/IPRATROPIUM 0.5 INH SOL 3 ML VIAL.NEB. NEB PRN (07:34)
[2017-09-28] MEDS ORDERED: cefTRIAXone SODIUM 1 GM VIAL ONE (10:25)
[2017-09-28] MEDS ORDERED: DEXTROSE 5%-WATER - 50 ML IVPB ONE (10:25)
[2017-09-28] MEDS ORDERED: PT OWN MED DRAWER 7, Y5N ONE (10:27)
[2017-09-28] MEDS: SERTRALINE HCL 50 MG TABLET (FP) PO SCH (10:35)
[2017-09-28] MEDS: SODIUM BICARBONATE 650 MG TABLET PO SCH (10:35)
[2017-09-28] MEDS: HEPARIN NA (PORCINE) 5,000 UNITS/ML 1ML VIAL SQ SCH ×2 (10:35→21:11)
[2017-09-28] MEDS: FOLIC ACID 1 MG TABLET (FP) PO SCH (10:35)
[2017-09-28] MEDS: CEFTRIAXONE 1 GM in DEXTROSE 5%-WATER - 50 ML IVPB SCH (10:35)
[2017-09-28] MEDS: CYANOCOBALAMIN 1,000 MCG TABLET (FP) PO SCH (10:35)
[2017-09-28] MEDS: MAGNESIUM CL 64 MG TABLET.SA PO SCH (10:36)
[2017-09-28] MEDS: NICOTINE 7 MG/24 HOURS TOPICAL PATCH TD SCH (10:36)
[2017-09-28] MEDS: PRENATAL VITAMINS W/ FOLIC ACID TABLET (FP) PO SCH (10:36)
--- NOTE | 2017-09-28 12:01 | PN ---
Progress Note, Physician History of Present Illness: continues to improve generalized pain no other issues - Current Medication List Current Medications: Active Medications Albuterol/Ipratropium (Duoneb -) 1 amp NEB Q12H PRN PRN Reason: WHEEZING Last Admin: 09/28/17 07:34 Dose: 1 amp Cyanocobalamin (Vitamin B12 -) 1,000 mcg PO DAILY [facility] Last Admin: 09/28/17 10:35 Dose: 1,000 mcg Folic Acid (Folic Acid -) 1 mg PO DAILY [facility] Last Admin: 09/28/17 10:35 Dose: 1 mg Furosemide (Lasix Injection -) 20 mg IVPUSH BID@0600,1400 [facility] Last Admin: 09/28/17 05:56 Dose: 20 mg Heparin Sodium (Porcine) (Heparin -) 5,000 unit SQ BID [facility] Last Admin: 09/28/17 10:35 Dose: 5,000 unit Ceftriaxone Sodium 1 gm/ (Dextrose) 50 mls @ 100 mls/hr IVPB DAILY [facility] Last Admin: 09/28/17 10:35 Dose: 100 mls/hr Magnesium Chloride (Slow-Mag -) 128 mg PO DAILY [facility] Last Admin: 09/28/17 10:36 Dose: 128 mg Nicotine (Nicoderm Patch -) 7 mg TD DAILY [facility] Last Admin: 09/28/17 10:36 Dose: 7 mg Multivit/Folic Acid/Iron ( Vitamins (Sjr) -) 1 tab PO DAILY [facility] Last Admin: 09/28/17 10:36 Dose: 1 tab Sertraline HCl (Zoloft -) 50 mg PO DAILY [facility] Last Admin: 09/28/17 10:35 Dose: 50 mg Sodium Bicarbonate (Sodium Bicarbonate -) 650 mg PO DAILY [facility] Last Admin: 09/28/17 10:35 Dose: 650 mg Thiamine HCl (Vitamin B1 -) 100 mg PO HS [facility] Last Admin: 09/27/17 21:39 Dose: 100 mg - Objective Vital Signs: Vital Signs Temperature 99.2 F 09/28/17 10:00 Pulse Rate 100 H 09/28/17 10:00 Respiratory Rate 20 09/28/17 10:00 Blood Pressure 93/67 09/28/17 10:00 O2 Sat by Pulse Oximetry (%) 93 L 09/27/17 22:00 Constitutional: Yes: No Distress, Calm, Thin, Other Cardiovascular: Yes: Regular Rate and Rhythm Respiratory: Yes: Regular, CTA Bilaterally Gastrointestinal: Yes: Normal Bowel Sounds, Soft Extremities: Yes: Other Neurological: Yes: Alert, Oriented Psychiatric: Yes: Alert, Oriented Labs: CBC, BMP 09/26/17 08:55 09/27/17 06:05 INR, PTT INR 1.26 (0.82-1.09) H 09/22/17 18:20 Assessment/Plan patient with gm negative bacteremia and uti gm negative bacteremia uti hypoxia lethargy drug abuse etoh abuse ams improved repeat cx negative plan will deescalte abx soon rest continue current mgmt patient starting to improve rest as per icu
--- NOTE | 2017-09-28 12:20 | PN ---
Progress Note (short form) - Note Progress Note: covering dr hurtado seen at bedside feels better no sob able to ambulate to bathroom but still unsteady and generalized weakness Problems 56 year old woman with PMhx of Hypertension, CAD s/p CABG, MVR, Chronic ETOH abuse Tachycardia, azotemia, BUN/Cr of 24/1.4 and hyponatremia (Na 129. strong family history of CKD Current Medications Albuterol/Ipratropium (Duoneb -) 1 amp NEB Q12H PRN PRN Reason: WHEEZING Last Admin: 09/28/17 07:34 Dose: 1 amp Cyanocobalamin (Vitamin B12 -) 1,000 mcg PO DAILY [facility] Last Admin: 09/28/17 10:35 Dose: 1,000 mcg Folic Acid (Folic Acid -) 1 mg PO DAILY [facility] Last Admin: 09/28/17 10:35 Dose: 1 mg Furosemide (Lasix Injection -) 20 mg IVPUSH BID@0600,1400 [facility] Last Admin: 09/28/17 05:56 Dose: 20 mg Heparin Sodium (Porcine) (Heparin -) 5,000 unit SQ BID [facility] Last Admin: 09/28/17 10:35 Dose: 5,000 unit Ceftriaxone Sodium 1 gm/ (Dextrose) 50 mls @ 100 mls/hr IVPB DAILY [facility] Last Admin: 09/28/17 10:35 Dose: 100 mls/hr Magnesium Chloride (Slow-Mag -) 128 mg PO DAILY [facility] Last Admin: 09/28/17 10:36 Dose: 128 mg Nicotine (Nicoderm Patch -) 7 mg TD DAILY [facility] Last Admin: 09/28/17 10:36 Dose: 7 mg Multivit/Folic Acid/Iron ( Vitamins (Sjr) -) 1 tab PO DAILY [facility] Last Admin: 09/28/17 10:36 Dose: 1 tab Sertraline HCl (Zoloft -) 50 mg PO DAILY [facility] Last Admin: 09/28/17 10:35 Dose: 50 mg Sodium Bicarbonate (Sodium Bicarbonate -) 650 mg PO DAILY [facility] Last Admin: 09/28/17 10:35 Dose: 650 mg Thiamine HCl (Vitamin B1 -) 100 mg PO HS [facility] Last Admin: 09/27/17 21:39 Dose: 100 mg Last Vital Signs Temp Pulse Resp BP Pulse Ox 99.2 F 100 H 20 93/67 93 L 09/28/17 10:00 09/28/17 10:00 09/28/17 10:00 09/28/17 10:00 09/27/17 22:00 Lungs clear Heart reg Abd soft nontender ext no edema CBC, BMP 09/26/17 08:55 09/27/17 06:05 IMP- s/p DANIS (baseline Cr 0.6) -volume depletion, radiocontrast -Hyponatremia resolved -Mild pulmonary congestion on imaging- no resp sx -Metabolic acidosis (non-anion gap)- resolved -ETOH abuse/withdrawal -s/p Hypokalemia - resolved -Adrenal Lesion -Suspected Pylonephritis Anemia - -Renal function stable, however not yet at baseline s/p fluid overload,(congestion on CXR) and respiratory distress Switch to oral furosemide when indicated per cardiology
--- NOTE | 2017-09-28 18:52 | PN ---
Progress Note, Physician Chief Complaint: Pt A&Ox3; asymptomatic; eager to return to rehabilitation. History of Present Illness: 56 yo black woman with h/o HTN, CAD ( s/p CABG), bioprosthetic MVR, diastolic CHF, chronic EtOH abuse, who presents with tachycardia. Patient reports one week of night sweats, increased confusion, tremors, SOB, BL chest tightness, and fatigue following home attempt at alcohol cessation. Chest pressure slightly improved and left sided with absent radiation. Reports Roque, and pleuritic chest pain. Also complains of visual hallucinations upon awakening. + chronic cough. 2 days of palpitations occurring intermittently, with no identifiable trigger or alleviators. Tobacco use 1/2 ppd 20 + years. Daily vodka use ( 1 pint per day) with last alcoholic beverage 7 days [employer]. Denies F/C , hemoptysis, wheezing, abdominal pain, diarrhea, constipation, lightheadedness , weakness, sensory changes, or convulsions. This AM patient went to outpt. rehab seeking medication treatment for withdrawal, but sent to ED d/t tachycardia ~120 on triage vitals. Currently not being treated for withdrawal. Denies recent travel or immobilization, h/o PE/DVT, hormone use, trauma or surgery within past 6 weeks, or h/o malignancy. - Current Medication List Current Medications: Active Medications Cyanocobalamin (Vitamin B12 -) 1,000 mcg PO DAILY [facility] Last Admin: 09/28/17 10:35 Dose: 1,000 mcg Folic Acid (Folic Acid -) 1 mg PO DAILY [facility] Last Admin: 09/28/17 10:35 Dose: 1 mg Furosemide (Lasix Injection -) 20 mg IVPUSH BID@0600,1400 [facility] Last Admin: 09/28/17 13:46 Dose: 20 mg Heparin Sodium (Porcine) (Heparin -) 5,000 unit SQ BID [facility] Last Admin: 09/28/17 10:35 Dose: 5,000 unit Ceftriaxone Sodium 1 gm/ (Dextrose) 50 mls @ 100 mls/hr IVPB DAILY [facility] Last Admin: 09/28/17 10:35 Dose: 100 mls/hr Magnesium Chloride (Slow-Mag -) 128 mg PO DAILY [facility] Last Admin: 09/28/17 10:36 Dose: 128 mg Nicotine (Nicoderm Patch -) 7 mg TD DAILY [facility] Last Admin: 09/28/17 10:36 Dose: 7 mg Multivit/Folic Acid/Iron ( Vitamins (Sjr) -) 1 tab PO DAILY [facility] Last Admin: 09/28/17 10:36 Dose: 1 tab Sertraline HCl (Zoloft -) 50 mg PO DAILY [facility] Last Admin: 09/28/17 10:35 Dose: 50 mg Sodium Bicarbonate (Sodium Bicarbonate -) 650 mg PO DAILY [facility] Last Admin: 09/28/17 10:35 Dose: 650 mg Thiamine HCl (Vitamin B1 -) 100 mg PO HS [facility] Last Admin: 09/27/17 21:39 Dose: 100 mg - Objective Vital Signs: Vital Signs Temperature 98.3 F 09/28/17 18:00 Pulse Rate 99 H 09/28/17 18:00 Respiratory Rate 18 09/28/17 18:00 Blood Pressure 103/67 09/28/17 18:00 O2 Sat by Pulse Oximetry (%) 94 L 09/28/17 10:00 Constitutional: Yes: Calm Labs: CBC, BMP 09/26/17 08:55 09/27/17 06:05 INR, PTT INR 1.26 (0.82-1.09) H 09/22/17 18:20 Problem List - Problems (1) History of mitral valve prosthesis Assessment/Plan: significant functional mitral stenosis (mean gradient 15 mmHg). (2) Alcohol withdrawal Assessment/Plan: Continue detox protocol. Plan for long-terem rehab. Pt is determined not to ever return to drinking. Code(s): F10.239 - ALCOHOL DEPENDENCE WITH WITHDRAWAL, UNSPECIFIED (3) Anemia Assessment/Plan: chronic;f/u with booster assembler. Code(s): D64.9 - ANEMIA, UNSPECIFIED (4) Anxiety and depression Assessment/Plan: On Zoloft. Detox protocol. 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 Increase to 14 mg daily (pt says 7 mg "is not doing anything"; she has decreased smoking, but still smokes 1/2 ppd). Code(s): F17.200 - NICOTINE DEPENDENCE, UNSPECIFIED, UNCOMPLICATED Qualifiers: Nicotine product type: cigarettes Substance use status: uncomplicated Qualified Code(s): F17.210 - Nicotine dependence, cigarettes, uncomplicated (12) Weight loss Code(s): R63.4 - ABNORMAL WEIGHT LOSS (13) Hypomagnesemia Code(s): E83.42 - HYPOMAGNESEMIA (14) Acute on chronic diastolic (congestive) heart failure Code(s): I50.33 - ACUTE ON CHRONIC DIASTOLIC (CONGESTIVE) HEART FAILURE
[2017-09-28] MEDS: THIAMINE HCL 100 MG TABLET (FP) PO SCH (21:11)
--- NOTE | 2017-09-28 23:04 | PN ---
Progress Note, Physician - Current Medication List Current Medications: Active Medications Cyanocobalamin (Vitamin B12 -) 1,000 mcg PO DAILY [facility] Last Admin: 09/28/17 10:35 Dose: 1,000 mcg Folic Acid (Folic Acid -) 1 mg PO DAILY [facility] Last Admin: 09/28/17 10:35 Dose: 1 mg Furosemide (Lasix Injection -) 20 mg IVPUSH BID@0600,1400 [facility] Last Admin: 09/28/17 13:46 Dose: 20 mg Heparin Sodium (Porcine) (Heparin -) 5,000 unit SQ BID [facility] Last Admin: 09/28/17 21:11 Dose: 5,000 unit Ceftriaxone Sodium 1 gm/ (Dextrose) 50 mls @ 100 mls/hr IVPB DAILY [facility] Last Admin: 09/28/17 10:35 Dose: 100 mls/hr Magnesium Chloride (Slow-Mag -) 128 mg PO DAILY [facility] Last Admin: 09/28/17 10:36 Dose: 128 mg Nicotine (Nicoderm Patch -) 14 mg TD DAILY [facility] Multivit/Folic Acid/Iron ( Vitamins (Sjr) -) 1 tab PO DAILY [facility] Last Admin: 09/28/17 10:36 Dose: 1 tab Sertraline HCl (Zoloft -) 50 mg PO DAILY [facility] Last Admin: 09/28/17 10:35 Dose: 50 mg Sodium Bicarbonate (Sodium Bicarbonate -) 650 mg PO DAILY [facility] Last Admin: 09/28/17 10:35 Dose: 650 mg Thiamine HCl (Vitamin B1 -) 100 mg PO HS [facility] Last Admin: 09/28/17 21:11 Dose: 100 mg - Objective Vital Signs: Vital Signs Temperature 98.5 F 09/28/17 22:00 Pulse Rate 99 H 09/28/17 22:00 Respiratory Rate 16 09/28/17 22:00 Blood Pressure 109/71 09/28/17 22:00 O2 Sat by Pulse Oximetry (%) 93 L 09/28/17 20:30 Labs: CBC, BMP 09/26/17 08:55 09/27/17 06:05 INR, PTT INR 1.26 (0.82-1.09) H 09/22/17 18:20 Problem List - Problems (1) Sepsis Code(s): A41.9 - SEPSIS, UNSPECIFIED ORGANISM (2) Tachycardia Code(s): R00.0 - TACHYCARDIA, UNSPECIFIED (3) ARF (acute renal failure) Code(s): N17.9 - ACUTE KIDNEY FAILURE, UNSPECIFIED (4) HLD (hyperlipidemia) Code(s): E78.5 - HYPERLIPIDEMIA, UNSPECIFIED (5) COPD (chronic obstructive pulmonary disease) Code(s): J44.9 - CHRONIC OBSTRUCTIVE PULMONARY DISEASE, UNSPECIFIED (6) Anemia Code(s): D64.9 - ANEMIA, UNSPECIFIED (7) Anxiety and depression Code(s): F41.9 - ANXIETY DISORDER, UNSPECIFIED; F32.9 - MAJOR DEPRESSIVE DISORDER, SINGLE EPISODE, UNSPECIFIED (8) Alcohol withdrawal Code(s): F10.239 - ALCOHOL DEPENDENCE WITH WITHDRAWAL, UNSPECIFIED (9) HTN (hypertension) Code(s): I10 - ESSENTIAL (PRIMARY) HYPERTENSION (10) Cachexia Code(s): R64 - CACHEXIA
[2017-09-29] MEDS: FUROSEMIDE 40 MG/4 ML INJECTABLE VIAL IVPUSH SCH ×2 (06:21→13:37)
[2017-09-29 07:38] LABS: EOS % 1.5 % (0-4.5); HEMATOCRIT 26.1 % (32.4-45.2); HEMOGLOBIN 8.9 GM/dL (10.7-15.3); LYMPH % 19.3 % (8-40); MCH 32.6 pg (25.7-33.7); MCHC 34.1 g/dl (32.0-36.0); MEAN CELL VOLUME 95.7 fl (80-96); MEAN PLT VOLUME 8.2 fl (7.5-11.1); MONO % 5.7 % (3.8-10.2); NEUT % 72.5 % (42.8-82.8); PLATELET COUNT 850 K/MM3 (134-434); RBC 2.73 M/mm3 (3.60-5.2); RDW 15.8 % (11.6-15.6); WHITE BLOOD COUNT 10.2 K/mm3 (4.0-10.0)
[2017-09-29 08:03] LABS: ALBUMIN 2.7 g/dl (3.4-5.0); ANION GAP 12 (8-16); BLOOD UREA NITROGEN 35 mg/dL (7-18); CHLORIDE 94 mmol/L (98-107); CO2 27 mmol/L (21-32); GLUCOSE,RANDOM 210 mg/dL (74-106); POTASSIUM 4.5 mmol/L (3.5-5.1); SGOT/AST 13 U/L (15-37); SGPT/ALT 16 U/L (12-78); SODIUM 133 mmol/L (136-145)
[2017-09-29 08:06] LABS: ALK PHOS 136 U/L (45-117); CALCIUM 9.6 mg/dL (8.5-10.1); CREATININE 1.2 mg/dL (0.55-1.02); TOT PROT 7.8 g/dl (6.4-8.2)
[2017-09-29 08:07] LABS: BILIRUBIN,TOTAL < 0.1 mg/dL (0.2-1.0)
[2017-09-29] MEDS ORDERED: DEXTROSE 5%-WATER - 50 ML IVPB ONE (10:13)
[2017-09-29] MEDS ORDERED: cefTRIAXone SODIUM 1 GM VIAL ONE (10:13)
[2017-09-29] MEDS: CYANOCOBALAMIN 1,000 MCG TABLET (FP) PO SCH (10:14)
[2017-09-29] MEDS: HEPARIN NA (PORCINE) 5,000 UNITS/ML 1ML VIAL SQ SCH ×2 (10:14→21:59)
[2017-09-29] MEDS: FOLIC ACID 1 MG TABLET (FP) PO SCH (10:15)
[2017-09-29] MEDS: SERTRALINE HCL 50 MG TABLET (FP) PO SCH (10:15)
[2017-09-29] MEDS: CEFTRIAXONE 1 GM in DEXTROSE 5%-WATER - 50 ML IVPB SCH (10:15)
[2017-09-29] MEDS: SODIUM BICARBONATE 650 MG TABLET PO SCH (10:15)
[2017-09-29] MEDS ORDERED: PT OWN MED DRAWER 7, Y5N ONE (10:16)
[2017-09-29] MEDS: NICOTINE 14 MG/24 HOURS TOPICAL PATCH TD SCH (10:16)
[2017-09-29] MEDS: PRENATAL VITAMINS W/ FOLIC ACID TABLET (FP) PO SCH (10:16)
[2017-09-29] MEDS: MAGNESIUM CL 64 MG TABLET.SA PO SCH (10:17)
--- NOTE | 2017-09-29 11:44 | PN ---
Progress Note, Physician History of Present Illness: The patient is a 56 year old female, with a significant past medical history of HTN, CAD ( s/p CABG), MVR, chronic EtoH abuse, who presents to the emergency department with tachycardia, following alcohol cessation. Patient reports having vodka use (1 pint per day) last beverage 7 days. She reports since having nauesa, retching, sweating, chills, tremors, and vomiting. She denies auditory and visual hallucinations. She does endorse feeling a little confused in addition to her other complaints. She denies recent fevers, chills, headache or dizziness. Allergies: NKA Past surgical history: None reported. Social history: See [facility] Primary Care Physician: - Current Medication List Current Medications: Active Medications Cyanocobalamin (Vitamin B12 -) 1,000 mcg PO DAILY [facility] Last Admin: 09/29/17 10:14 Dose: 1,000 mcg Folic Acid (Folic Acid -) 1 mg PO DAILY [facility] Last Admin: 09/29/17 10:15 Dose: 1 mg Furosemide (Lasix Injection -) 20 mg IVPUSH BID@0600,1400 [facility] Last Admin: 09/29/17 06:21 Dose: 20 mg Heparin Sodium (Porcine) (Heparin -) 5,000 unit SQ BID [facility] Last Admin: 09/29/17 10:14 Dose: 5,000 unit Ceftriaxone Sodium 1 gm/ (Dextrose) 50 mls @ 100 mls/hr IVPB DAILY [facility] Last Admin: 09/29/17 10:15 Dose: 100 mls/hr Magnesium Chloride (Slow-Mag -) 128 mg PO DAILY [facility] Last Admin: 09/29/17 10:17 Dose: 128 mg Nicotine (Nicoderm Patch -) 14 mg TD DAILY [facility] Last Admin: 09/29/17 10:16 Dose: 14 mg Multivit/Folic Acid/Iron ( Vitamins (Sjr) -) 1 tab PO DAILY [facility] Last Admin: 09/29/17 10:16 Dose: 1 tab Sertraline HCl (Zoloft -) 50 mg PO DAILY [facility] Last Admin: 09/29/17 10:15 Dose: 50 mg Sodium Bicarbonate (Sodium Bicarbonate -) 650 mg PO DAILY [facility] Last Admin: 09/29/17 10:15 Dose: 650 mg Thiamine HCl (Vitamin B1 -) 100 mg PO HS [facility] Last Admin: 09/28/17 21:11 Dose: 100 mg - Objective Vital Signs: Vital Signs Temperature 98.2 F 09/29/17 06:00 Pulse Rate 90 09/29/17 06:00 Respiratory Rate 20 09/29/17 06:00 Blood Pressure 101/62 09/29/17 06:00 O2 Sat by Pulse Oximetry (%) 95 09/28/17 22:00 Eyes: Yes: WNL, Conjunctiva Clear, EOM Intact HENT: Yes: WNL, Atraumatic, Normocephalic Neck: Yes: WNL, Supple, Trachea Midline Cardiovascular: Yes: WNL, Regular Rate and Rhythm Respiratory: Yes: WNL, Regular, CTA Bilaterally Gastrointestinal: Yes: WNL, Normal Bowel Sounds Genitourinary: Yes: WNL Musculoskeletal: Yes: WNL Extremities: Yes: WNL Edema: No Integumentary: Yes: WNL Neurological: Yes: WNL, Alert, Oriented ...Motor Strength: WNL Psychiatric: Yes: WNL Labs: CBC, BMP 09/29/17 06:30 09/29/17 06:30 INR, PTT INR 1.26 (0.82-1.09) H 09/22/17 18:20 Problem List - Problems (1) ARF (acute renal failure) Code(s): N17.9 - ACUTE KIDNEY FAILURE, UNSPECIFIED (2) Acute on chronic diastolic (congestive) heart failure Code(s): I50.33 - ACUTE ON CHRONIC DIASTOLIC (CONGESTIVE) HEART FAILURE (3) Alcohol withdrawal Code(s): F10.239 - ALCOHOL DEPENDENCE WITH WITHDRAWAL, UNSPECIFIED (4) Anemia Code(s): D64.9 - ANEMIA, UNSPECIFIED (5) Anemia Code(s): D64.9 - ANEMIA, UNSPECIFIED (6) Anxiety and depression Code(s): F41.9 - ANXIETY DISORDER, UNSPECIFIED; F32.9 - MAJOR DEPRESSIVE DISORDER, SINGLE EPISODE, UNSPECIFIED (7) COPD (chronic obstructive pulmonary disease) Code(s): J44.9 - CHRONIC OBSTRUCTIVE PULMONARY DISEASE, UNSPECIFIED (8) HLD (hyperlipidemia) Code(s): E78.5 - HYPERLIPIDEMIA, UNSPECIFIED (9) HTN (hypertension) Code(s): I10 - ESSENTIAL (PRIMARY) HYPERTENSION (11) Hypomagnesemia Code(s): E83.42 - HYPOMAGNESEMIA (12) Pyelonephritis Code(s): N12 - TUBULO-INTERSTITIAL NEPHRITIS, NOT SPCF ACUTE OR CHRONIC (13) Sepsis Code(s): A41.9 - SEPSIS, UNSPECIFIED ORGANISM (14) Tachycardia Code(s): R00.0 - TACHYCARDIA, UNSPECIFIED (15) Alcohol dependence with uncomplicated withdrawal Code(s): F10.230 - ALCOHOL DEPENDENCE WITH WITHDRAWAL, UNCOMPLICATED (16) Acute alcoholic pancreatitis Code(s): K85.20 - ALCOHOL INDUCED ACUTE PANCREATITIS WITHOUT NECROSIS OR INFCT Qualifiers: Acute pancreatitis complication: unspecified Qualified Code(s): K85.20 - Alcohol induced acute pancreatitis without necrosis or infection (17) Cachexia Code(s): R64 - CACHEXIA (18) Diarrhea Code(s): R19.7 - DIARRHEA, UNSPECIFIED (19) Hypokalemia Code(s): E87.6 - HYPOKALEMIA (20) Malnutrition Code(s): E46 - UNSPECIFIED PROTEIN-CALORIE MALNUTRITION (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 Code(s): F15.10 - OTHER STIMULANT ABUSE, UNCOMPLICATED (22) Nicotine dependence Code(s): F17.200 - NICOTINE DEPENDENCE, UNSPECIFIED, UNCOMPLICATED Qualifiers: Nicotine product type: cigarettes Substance use status: uncomplicated Qualified Code(s): F17.210 - Nicotine dependence, cigarettes, uncomplicated (23) Substance induced mood disorder Code(s): F19.94 - OTH PSYCHOACTIVE SUBSTANCE USE, UNSP W MOOD DISORDER (24) Use of cane as ambulatory aid Code(s): R26.2 - DIFFICULTY IN WALKING, NOT ELSEWHERE CLASSIFIED (25) Weight loss Code(s): R63.4 - ABNORMAL WEIGHT LOSS Assessment/Plan - Problems (1) History of mitral valve prosthesis Assessment/Plan: significant functional mitral stenosis (mean gradient 15 mmHg). (2) Alcohol withdrawal Assessment/Plan: Continue detox protocol. Plan for long-terem rehab. Pt is determined not to ever return to drinking. Code(s): F10.239 - ALCOHOL DEPENDENCE WITH WITHDRAWAL, UNSPECIFIED (3) Anemia Assessment/Plan: chronic;f/u with work counselor. Code(s): D64.9 - ANEMIA, UNSPECIFIED (4) Anxiety and depression Assessment/Plan: On Zoloft. Detox protocol. 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 Increase to 14 mg daily (pt says 7 mg "is not doing anything"; she has decreased smoking, but still smokes 1/2 ppd). Code(s): F17.200 - NICOTINE DEPENDENCE, UNSPECIFIED, UNCOMPLICATED Qualifiers: Nicotine product type: cigarettes Substance use status: uncomplicated Qualified Code(s): F17.210 - Nicotine dependence, cigarettes, uncomplicated (12) Weight loss Code(s): R63.4 - ABNORMAL WEIGHT LOSS (13) Hypomagnesemia Code(s): E83.42 - HYPOMAGNESEMIA (14) Acute on chronic diastolic (congestive) heart failure Code(s): I50.33 - ACUTE ON CHRONIC DIASTOLIC (CONGESTIVE) HEART FAILURE
--- NOTE | 2017-09-29 14:29 | PN ---
Progress Note (short form) - Note Progress Note: Renal Follow up for DANIS Pt seen and examined at the bedside no acute complaints no sob, chest pain making urine Vital Signs Temperature 98.4 F 09/27/17 09:18 Pulse Rate 94 H 09/27/17 13:46 Respiratory Rate 17 09/27/17 13:46 Blood Pressure 94/68 09/27/17 13:46 O2 Sat by Pulse Oximetry (%) 96 09/27/17 13:26 Intake & Output 09/24/17 09/25/17 09/26/17 09/27/17 23:59 23:59 23:59 23:59 Intake Total 1295 250 175 450 Output Total 1500 1240 1600 1350 Balance -205 -771 -6935 -900 Weight 51.301 kg 48.648 kg 49.532 kg 50.258 kg NAD RRR CTA soft NT/ND NO LE edema CBC, BMP 09/26/17 08:55 09/27/17 06:05 Laboratory Tests 09/29/17 06:30 Calcium 9.6 Albumin 2.7 L Current Medications Albuterol/Ipratropium (Duoneb -) 1 amp NEB Q12H PRN PRN Reason: WHEEZING Cyanocobalamin (Vitamin B12 -) 1,000 mcg PO DAILY [facility] Last Admin: 09/27/17 09:47 Dose: 1,000 mcg Folic Acid (Folic Acid -) 1 mg PO DAILY [facility] Last Admin: 09/27/17 09:45 Dose: 1 mg Furosemide (Lasix Injection -) 20 mg IVPUSH BID@0600,1400 [facility] Last Admin: 09/27/17 14:03 Dose: 20 mg Heparin Sodium (Porcine) (Heparin -) 5,000 unit SQ BID [facility] Last Admin: 09/27/17 09:45 Dose: 5,000 unit Ceftriaxone Sodium 1 gm/ (Dextrose) 50 mls @ 100 mls/hr IVPB DAILY [facility] Last Admin: 09/27/17 09:46 Dose: 100 mls/hr Magnesium Chloride (Slow-Mag -) 128 mg PO DAILY [facility] Last Admin: 09/27/17 09:47 Dose: 128 mg Nicotine (Nicoderm Patch -) 7 mg TD DAILY [facility] Last Admin: 09/27/17 09:47 Dose: 7 mg Multivit/Folic Acid/Iron ( Vitamins (Sjr) -) 1 tab PO DAILY [facility] Last Admin: 09/27/17 09:47 Dose: 1 tab Sertraline HCl (Zoloft -) 50 mg PO DAILY [facility] Last Admin: 09/27/17 09:45 Dose: 50 mg Sodium Bicarbonate (Sodium Bicarbonate -) 650 mg PO DAILY [facility] Last Admin: 09/27/17 09:45 Dose: 650 mg Thiamine HCl (Vitamin B1 -) 100 mg PO HS [facility] Last Admin: 09/26/17 22:08 Dose: 100 mg 56 year old woman with PMhx of Hypertension, CAD s/p CABG, MVR, Chronic ETOH abuse who was sent from outpatient rehab with tachycardia and found to have BUN/ Cr of 24/1.4 and Na of 129. #DANIS (baseline Cr 0.6) likely secondary to volume depletion but now pt with contrast exposure #Mitral Valve disease #Tachycardia #Metabolic acidosis (non-anion gap)- now resolved #ETOH abuse/withdrawal #Adrenal Lesion #Pylonephritis Renal function stable at this time Contneu Lasix as per Cardiology transition to oral lasix continue Abx for pylonephitis Repeat imaging of the adrenal gland when renal function gets to baseline Thank you August Lowery DO
--- NOTE | 2017-09-29 15:16 | PN ---
Progress Note, Physician History of Present Illness: doing well no issues - Current Medication List Current Medications: Active Medications Cyanocobalamin (Vitamin B12 -) 1,000 mcg PO DAILY [facility] Last Admin: 09/29/17 10:14 Dose: 1,000 mcg Folic Acid (Folic Acid -) 1 mg PO DAILY [facility] Last Admin: 09/29/17 10:15 Dose: 1 mg Furosemide (Lasix -) 40 mg PO BID@0600,1400 [facility] Heparin Sodium (Porcine) (Heparin -) 5,000 unit SQ BID [facility] Last Admin: 09/29/17 10:14 Dose: 5,000 unit Ceftriaxone Sodium 1 gm/ (Dextrose) 50 mls @ 100 mls/hr IVPB DAILY [facility] Last Admin: 09/29/17 10:15 Dose: 100 mls/hr Magnesium Chloride (Slow-Mag -) 128 mg PO DAILY [facility] Last Admin: 09/29/17 10:17 Dose: 128 mg Nicotine (Nicoderm Patch -) 14 mg TD DAILY [facility] Last Admin: 09/29/17 10:16 Dose: 14 mg Multivit/Folic Acid/Iron ( Vitamins (Sjr) -) 1 tab PO DAILY [facility] Last Admin: 09/29/17 10:16 Dose: 1 tab Sertraline HCl (Zoloft -) 50 mg PO DAILY [facility] Last Admin: 09/29/17 10:15 Dose: 50 mg Sodium Bicarbonate (Sodium Bicarbonate -) 650 mg PO DAILY [facility] Last Admin: 09/29/17 10:15 Dose: 650 mg Thiamine HCl (Vitamin B1 -) 100 mg PO HS [facility] Last Admin: 09/28/17 21:11 Dose: 100 mg - Objective Vital Signs: Vital Signs Temperature 98 F 09/29/17 14:49 Pulse Rate 98 H 09/29/17 14:49 Respiratory Rate 16 09/29/17 14:49 Blood Pressure 110/61 09/29/17 14:49 O2 Sat by Pulse Oximetry (%) 93 L 09/29/17 09:00 Constitutional: Yes: No Distress, Calm Cardiovascular: Yes: Regular Rate and Rhythm Respiratory: Yes: Regular, CTA Bilaterally Gastrointestinal: Yes: Normal Bowel Sounds, Soft Musculoskeletal: Yes: WNL Extremities: Yes: WNL Neurological: Yes: Alert, Oriented Labs: CBC, BMP 09/29/17 06:30 09/29/17 06:30 INR, PTT INR 1.26 (0.82-1.09) H 09/22/17 18:20 Assessment/Plan patient with gm negative bacteremia and uti gm negative bacteremia uti hypoxia lethargy drug abuse etoh abuse ams improved repeat cx negative plan will stop abx rest continue current mgmt patient starting to improve rest as per icu
[2017-09-29] MEDS: THIAMINE HCL 100 MG TABLET (FP) PO SCH (21:59)
--- NOTE | 2017-09-29 23:46 | PN ---
Progress Note, Physician - Current Medication List Current Medications: Active Medications Cyanocobalamin (Vitamin B12 -) 1,000 mcg PO DAILY [facility] Last Admin: 09/29/17 10:14 Dose: 1,000 mcg Folic Acid (Folic Acid -) 1 mg PO DAILY [facility] Last Admin: 09/29/17 10:15 Dose: 1 mg Furosemide (Lasix -) 40 mg PO BID@0600,1400 [facility] Heparin Sodium (Porcine) (Heparin -) 5,000 unit SQ BID [facility] Last Admin: 09/29/17 21:59 Dose: 5,000 unit Ceftriaxone Sodium 1 gm/ (Dextrose) 50 mls @ 100 mls/hr IVPB DAILY [facility] Last Admin: 09/29/17 10:15 Dose: 100 mls/hr Magnesium Chloride (Slow-Mag -) 128 mg PO DAILY [facility] Last Admin: 09/29/17 10:17 Dose: 128 mg Nicotine (Nicoderm Patch -) 14 mg TD DAILY [facility] Last Admin: 09/29/17 10:16 Dose: 14 mg Multivit/Folic Acid/Iron ( Vitamins (Sjr) -) 1 tab PO DAILY [facility] Last Admin: 09/29/17 10:16 Dose: 1 tab Sertraline HCl (Zoloft -) 50 mg PO DAILY [facility] Last Admin: 09/29/17 10:15 Dose: 50 mg Sodium Bicarbonate (Sodium Bicarbonate -) 650 mg PO DAILY [facility] Last Admin: 09/29/17 10:15 Dose: 650 mg Thiamine HCl (Vitamin B1 -) 100 mg PO HS [facility] Last Admin: 09/29/17 21:59 Dose: 100 mg - Objective Vital Signs: Vital Signs Temperature 98.4 F 09/29/17 18:00 Pulse Rate 96 H 09/29/17 18:00 Respiratory Rate 18 09/29/17 18:00 Blood Pressure 96/64 09/29/17 18:00 O2 Sat by Pulse Oximetry (%) 93 L 09/29/17 09:00 Labs: CBC, BMP 09/29/17 06:30 09/29/17 06:30 INR, PTT INR 1.26 (0.82-1.09) H 09/22/17 18:20 Problem List - Problems (1) Sepsis Code(s): A41.9 - SEPSIS, UNSPECIFIED ORGANISM (2) Tachycardia Code(s): R00.0 - TACHYCARDIA, UNSPECIFIED (3) ARF (acute renal failure) Code(s): N17.9 - ACUTE KIDNEY FAILURE, UNSPECIFIED (4) HLD (hyperlipidemia) Code(s): E78.5 - HYPERLIPIDEMIA, UNSPECIFIED (5) COPD (chronic obstructive pulmonary disease) Code(s): J44.9 - CHRONIC OBSTRUCTIVE PULMONARY DISEASE, UNSPECIFIED (6) Anemia Code(s): D64.9 - ANEMIA, UNSPECIFIED (7) Anxiety and depression Code(s): F41.9 - ANXIETY DISORDER, UNSPECIFIED; F32.9 - MAJOR DEPRESSIVE DISORDER, SINGLE EPISODE, UNSPECIFIED (8) Alcohol withdrawal Code(s): F10.239 - ALCOHOL DEPENDENCE WITH WITHDRAWAL, UNSPECIFIED (9) HTN (hypertension) Code(s): I10 - ESSENTIAL (PRIMARY) HYPERTENSION (10) Cachexia Code(s): R64 - CACHEXIA
[2017-09-30] MEDS ORDERED: FUROSEMIDE 40 MG TABLET (FP) PO SCH (06:00)
[2017-09-30 08:07] LABS: CHLORIDE 97 mmol/L (98-107); POTASSIUM 4.7 mmol/L (3.5-5.1); SODIUM 133 mmol/L (136-145)
[2017-09-30 08:53] LABS: ANION GAP 11 (8-16); BLOOD UREA NITROGEN 34 mg/dL (7-18); CALCIUM 9.8 mg/dL (8.5-10.1); CO2 25 mmol/L (21-32); CREATININE 1.3 mg/dL (0.55-1.02); GLUCOSE,RANDOM 157 mg/dL (74-106); MAGNESIUM 2.2 mg/dL (1.8-2.4); PHOSPHOROUS 5.1 mg/dL (2.5-4.9)
[2017-09-30] MEDS ORDERED: PT OWN MED DRAWER 7, Y5N ONE (09:05)
[2017-09-30] MEDS ORDERED: DEXTROSE 5%-WATER - 50 ML IVPB ONE (09:06)
[2017-09-30] MEDS ORDERED: cefTRIAXone SODIUM 1 GM VIAL ONE (09:06)
[2017-09-30] MEDS: CEFTRIAXONE 1 GM in DEXTROSE 5%-WATER - 50 ML IVPB SCH (09:11)
[2017-09-30] MEDS: HEPARIN NA (PORCINE) 5,000 UNITS/ML 1ML VIAL SQ SCH (09:11)
[2017-09-30] MEDS: SODIUM BICARBONATE 650 MG TABLET PO SCH (09:13)
[2017-09-30] MEDS: MAGNESIUM CL 64 MG TABLET.SA PO SCH (09:13)
[2017-09-30] MEDS: CYANOCOBALAMIN 1,000 MCG TABLET (FP) PO SCH (09:13)
[2017-09-30] MEDS: NICOTINE 14 MG/24 HOURS TOPICAL PATCH TD SCH (09:13)
[2017-09-30] MEDS: SERTRALINE HCL 50 MG TABLET (FP) PO SCH (09:13)
[2017-09-30] MEDS: FOLIC ACID 1 MG TABLET (FP) PO SCH (09:13)
[2017-09-30] MEDS: PRENATAL VITAMINS W/ FOLIC ACID TABLET (FP) PO SCH (09:14)
--- NOTE | 2017-09-30 11:19 | PN ---
Progress Note, Physician Chief Complaint: Covering for Dr. Pickering Not in distress History of Present Illness: Patient was seen and examined. Awake and alert. Chart was reviewed Denies chest pain, SOB or palpitations - Current Medication List Current Medications: Active Medications Cyanocobalamin (Vitamin B12 -) 1,000 mcg PO DAILY [facility] Last Admin: 09/30/17 09:13 Dose: 1,000 mcg Folic Acid (Folic Acid -) 1 mg PO DAILY [facility] Last Admin: 09/30/17 09:13 Dose: 1 mg Furosemide (Lasix -) 40 mg PO BID@0600,1400 [facility] Last Admin: 09/30/17 05:17 Dose: 40 mg Heparin Sodium (Porcine) (Heparin -) 5,000 unit SQ BID [facility] Last Admin: 09/30/17 09:11 Dose: 5,000 unit Ceftriaxone Sodium 1 gm/ (Dextrose) 50 mls @ 100 mls/hr IVPB DAILY [facility] Last Admin: 09/30/17 09:11 Dose: 100 mls/hr Magnesium Chloride (Slow-Mag -) 128 mg PO DAILY [facility] Last Admin: 09/30/17 09:13 Dose: 128 mg Nicotine (Nicoderm Patch -) 14 mg TD DAILY [facility] Last Admin: 09/30/17 09:13 Dose: 14 mg Multivit/Folic Acid/Iron ( Vitamins (Sjr) -) 1 tab PO DAILY [facility] Last Admin: 09/30/17 09:14 Dose: 1 tab Sertraline HCl (Zoloft -) 50 mg PO DAILY [facility] Last Admin: 09/30/17 09:13 Dose: 50 mg Sodium Bicarbonate (Sodium Bicarbonate -) 650 mg PO DAILY [facility] Last Admin: 09/30/17 09:13 Dose: 650 mg Thiamine HCl (Vitamin B1 -) 100 mg PO HS [facility] Last Admin: 09/29/17 21:59 Dose: 100 mg - Objective Vital Signs: Vital Signs Temperature 98.3 F 09/30/17 06:00 Pulse Rate 90 09/30/17 06:00 Respiratory Rate 20 09/30/17 06:00 Blood Pressure 98/69 09/30/17 06:00 O2 Sat by Pulse Oximetry (%) 95 09/29/17 22:00 HENT: Yes: Atraumatic Neck: Yes: Supple Cardiovascular: Yes: Regular Rate and Rhythm, S1, S2 Respiratory: Yes: Diminished Gastrointestinal: Yes: Normal Bowel Sounds, Soft. No: Tenderness Edema: No Labs: CBC, BMP 09/29/17 06:30 09/30/17 06:00 Problem List - Problems (1) CAD (coronary artery disease) Code(s): I25.10 - ATHSCL HEART DISEASE OF [place] CORONARY ARTERY W/O ANG PCTRS (2) Hx of CABG Code(s): Z95.1 - PRESENCE OF AORTOCORONARY BYPASS GRAFT (3) Acute on chronic diastolic (congestive) heart failure Code(s): I50.33 - ACUTE ON CHRONIC DIASTOLIC (CONGESTIVE) HEART FAILURE (4) Alcohol withdrawal Code(s): F10.239 - ALCOHOL DEPENDENCE WITH WITHDRAWAL, UNSPECIFIED (5) Anemia Code(s): D64.9 - ANEMIA, UNSPECIFIED (6) Anxiety and depression Code(s): F41.9 - ANXIETY DISORDER, UNSPECIFIED; F32.9 - MAJOR DEPRESSIVE DISORDER, SINGLE EPISODE, UNSPECIFIED (7) COPD (chronic obstructive pulmonary disease) Code(s): J44.9 - CHRONIC OBSTRUCTIVE PULMONARY DISEASE, UNSPECIFIED (8) HLD (hyperlipidemia) Code(s): E78.5 - HYPERLIPIDEMIA, UNSPECIFIED Qualifiers: Hyperlipidemia type: pure hypercholesterolemia Qualified Code(s): E78.00 - Pure hypercholesterolemia, unspecified; E78.0 - Pure hypercholesterolemia (9) HTN (hypertension) Code(s): I10 - ESSENTIAL (PRIMARY) HYPERTENSION Qualifiers: Hypertension type: essential hypertension Qualified Code(s): I10 - Essential (primary) hypertension (11) Nicotine dependence Code(s): F17.200 - NICOTINE DEPENDENCE, UNSPECIFIED, UNCOMPLICATED Qualifiers: Nicotine product type: cigarettes Substance use status: uncomplicated Qualified Code(s): F17.210 - Nicotine dependence, cigarettes, uncomplicated Assessment/Plan (1) History of mitral valve prosthesis Assessment/Plan: significant functional mitral stenosis (mean gradient 15 mmHg). (2) Alcohol withdrawal Assessment/Plan: Continue detox protocol. Plan for long-terem rehab. Pt is determined not to ever return to drinking. Code(s): F10.239 - ALCOHOL DEPENDENCE WITH WITHDRAWAL, UNSPECIFIED (3) Anemia Assessment/Plan: chronic;f/u with health screener. Code(s): D64.9 - ANEMIA, UNSPECIFIED (4) Anxiety and depression Assessment/Plan: On Zoloft. Detox protocol. 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 Increase to 14 mg daily (pt says 7 mg "is not doing anything"; she has decreased smoking, but still smokes 1/2 ppd). Code(s): F17.200 - NICOTINE DEPENDENCE, UNSPECIFIED, UNCOMPLICATED Qualifiers: Nicotine product type: cigarettes Substance use status: uncomplicated Qualified Code(s): F17.210 - Nicotine dependence, cigarettes, uncomplicated (12) Weight loss Code(s): R63.4 - ABNORMAL WEIGHT LOSS (13) Hypomagnesemia Code(s): E83.42 - HYPOMAGNESEMIA (14) Acute on chronic diastolic (congestive) heart failure Code(s): I50.33 - ACUTE ON CHRONIC DIASTOLIC (CONGESTIVE) HEART FAILURE 1. CAD post CABG, angina pectoris 2. Post MVR (functional MS) 3. Hypertension 4. Hypercholesterolemia 5. ETOH 6. COPD 7. Acute on chronic diastolic LV failure 8. Anemia PLAN: 1. Continue current medical therapy 2. DVT prophylaxis 3. Diuretics 4. Detox Further plans are to follow Tavo Aviles MD
--- NOTE | 2017-09-30 12:12 | PN ---
Progress Note, Physician History of Present Illness: stable still c/o of generalized pain thin - Current Medication List Current Medications: Active Medications Cyanocobalamin (Vitamin B12 -) 1,000 mcg PO DAILY [facility] Last Admin: 09/30/17 09:13 Dose: 1,000 mcg Folic Acid (Folic Acid -) 1 mg PO DAILY [facility] Last Admin: 09/30/17 09:13 Dose: 1 mg Furosemide (Lasix -) 40 mg PO BID@0600,1400 [facility] Last Admin: 09/30/17 05:17 Dose: 40 mg Heparin Sodium (Porcine) (Heparin -) 5,000 unit SQ BID [facility] Last Admin: 09/30/17 09:11 Dose: 5,000 unit Ceftriaxone Sodium 1 gm/ (Dextrose) 50 mls @ 100 mls/hr IVPB DAILY [facility] Last Admin: 09/30/17 09:11 Dose: 100 mls/hr Magnesium Chloride (Slow-Mag -) 128 mg PO DAILY [facility] Last Admin: 09/30/17 09:13 Dose: 128 mg Nicotine (Nicoderm Patch -) 14 mg TD DAILY [facility] Last Admin: 09/30/17 09:13 Dose: 14 mg Multivit/Folic Acid/Iron ( Vitamins (Sjr) -) 1 tab PO DAILY [facility] Last Admin: 09/30/17 09:14 Dose: 1 tab Sertraline HCl (Zoloft -) 50 mg PO DAILY [facility] Last Admin: 09/30/17 09:13 Dose: 50 mg Sodium Bicarbonate (Sodium Bicarbonate -) 650 mg PO DAILY [facility] Last Admin: 09/30/17 09:13 Dose: 650 mg Thiamine HCl (Vitamin B1 -) 100 mg PO HS [facility] Last Admin: 09/29/17 21:59 Dose: 100 mg - Objective Vital Signs: Vital Signs Temperature 98.3 F 09/30/17 06:00 Pulse Rate 90 09/30/17 06:00 Respiratory Rate 20 09/30/17 06:00 Blood Pressure 98/69 09/30/17 06:00 O2 Sat by Pulse Oximetry (%) 95 09/29/17 22:00 Constitutional: Yes: Calm, Mild Distress Cardiovascular: Yes: Regular Rate and Rhythm Respiratory: Yes: Regular, CTA Bilaterally Gastrointestinal: Yes: Normal Bowel Sounds, Soft Musculoskeletal: Yes: Muscle Weakness Extremities: Yes: Other Neurological: Yes: Alert, Oriented Psychiatric: Yes: Alert, Oriented Labs: CBC, BMP 09/29/17 06:30 09/30/17 06:00 INR, PTT INR 1.26 (0.82-1.09) H 09/22/17 18:20 Assessment/Plan patient with gm negative bacteremia and uti gm negative bacteremia uti hypoxia lethargy drug abuse etoh abuse ams improved repeat cx negative plan off of abx stable pain mgmt nutrition
--- NOTE | 2017-09-30 12:45 | PN ---
Progress Note (short form) - Note Progress Note: Renal Follow up for DANIS Pt seen and examined at the bedside awake and alert no acute complaints denies any sob, chest pain, abd pain, N/V making urine no dizziness Vital Signs Temperature 98.3 F 09/30/17 06:00 Pulse Rate 90 09/30/17 06:00 Respiratory Rate 20 09/30/17 06:00 Blood Pressure 98/69 09/30/17 06:00 O2 Sat by Pulse Oximetry (%) 95 09/29/17 22:00 Intake & Output 09/27/17 09/28/17 09/29/17 09/30/17 23:59 23:59 23:59 23:59 Intake Total 450 820 660 Output Total 1350 Balance -900 820 660 Weight 50.258 kg NAD RRR CTA soft NT/ND NO LE edema CBC, BMP 09/29/17 06:30 09/30/17 06:00 Current Medications Cyanocobalamin (Vitamin B12 -) 1,000 mcg PO DAILY [facility] Last Admin: 09/30/17 09:13 Dose: 1,000 mcg Folic Acid (Folic Acid -) 1 mg PO DAILY [facility] Last Admin: 09/30/17 09:13 Dose: 1 mg Furosemide (Lasix -) 20 mg PO BID@0600,1400 [facility] Heparin Sodium (Porcine) (Heparin -) 5,000 unit SQ BID [facility] Last Admin: 09/30/17 09:11 Dose: 5,000 unit Ceftriaxone Sodium 1 gm/ (Dextrose) 50 mls @ 100 mls/hr IVPB DAILY [facility] Last Admin: 09/30/17 09:11 Dose: 100 mls/hr Magnesium Chloride (Slow-Mag -) 128 mg PO DAILY [facility] Last Admin: 09/30/17 09:13 Dose: 128 mg Nicotine (Nicoderm Patch -) 14 mg TD DAILY [facility] Last Admin: 09/30/17 09:13 Dose: 14 mg Multivit/Folic Acid/Iron ( Vitamins (Sjr) -) 1 tab PO DAILY [facility] Last Admin: 09/30/17 09:14 Dose: 1 tab Sertraline HCl (Zoloft -) 50 mg PO DAILY [facility] Last Admin: 09/30/17 09:13 Dose: 50 mg Sodium Bicarbonate (Sodium Bicarbonate -) 650 mg PO DAILY [facility] Last Admin: 09/30/17 09:13 Dose: 650 mg Thiamine HCl (Vitamin B1 -) 100 mg PO HS [facility] Last Admin: 09/29/17 21:59 Dose: 100 mg 56 year old woman with PMhx of Hypertension, CAD s/p CABG, MVR, Chronic ETOH abuse who was sent from outpatient rehab with tachycardia and found to have BUN/ Cr of 24/1.4 and Na of 129. #DANIS (baseline Cr 0.6) likely secondary to volume depletion but now pt with contrast exposure #Mitral Stenosis #Tachycardia #Metabolic acidosis (non-anion gap)- now resolved #ETOH abuse/withdrawal #Adrenal Lesion #Pylonephritis BUN/Cr slowly trending up and Na downtrending ? mild intravascular volume depletion, will hold PM dose of Lasix and reduce dose to 20mg BID no signs of volume overload at this time Cardiology follow up continue Abx as per ID Thank you August Lowery DO
[2017-09-30] MEDS: THIAMINE HCL 100 MG TABLET (FP) PO SCH (22:38)
--- NOTE | 2017-09-30 23:31 | PN ---
Progress Note, Physician - Current Medication List Current Medications: Active Medications Cyanocobalamin (Vitamin B12 -) 1,000 mcg PO DAILY [facility] Last Admin: 09/30/17 09:13 Dose: 1,000 mcg Folic Acid (Folic Acid -) 1 mg PO DAILY [facility] Last Admin: 09/30/17 09:13 Dose: 1 mg Furosemide (Lasix -) 20 mg PO BID@0600,1400 [facility] Ceftriaxone Sodium 1 gm/ (Dextrose) 50 mls @ 100 mls/hr IVPB DAILY [facility] Last Admin: 09/30/17 09:11 Dose: 100 mls/hr Magnesium Chloride (Slow-Mag -) 128 mg PO DAILY [facility] Last Admin: 09/30/17 09:13 Dose: 128 mg Nicotine (Nicoderm Patch -) 14 mg TD DAILY [facility] Last Admin: 09/30/17 09:13 Dose: 14 mg Multivit/Folic Acid/Iron ( Vitamins (Sjr) -) 1 tab PO DAILY [facility] Last Admin: 09/30/17 09:14 Dose: 1 tab Sertraline HCl (Zoloft -) 50 mg PO DAILY [facility] Last Admin: 09/30/17 09:13 Dose: 50 mg Sodium Bicarbonate (Sodium Bicarbonate -) 650 mg PO DAILY [facility] Last Admin: 09/30/17 09:13 Dose: 650 mg Thiamine HCl (Vitamin B1 -) 100 mg PO HS [facility] Last Admin: 09/30/17 22:38 Dose: 100 mg - Objective Vital Signs: Vital Signs Temperature 98.6 F 09/30/17 18:13 Pulse Rate 96 H 09/30/17 18:13 Respiratory Rate 18 09/30/17 18:13 Blood Pressure 114/77 09/30/17 18:13 O2 Sat by Pulse Oximetry (%) 95 09/30/17 09:00 Labs: CBC, BMP 09/29/17 06:30 09/30/17 06:00 INR, PTT INR 1.26 (0.82-1.09) H 09/22/17 18:20 Problem List - Problems (1) Sepsis Assessment/Plan: Cont IV ceftriaxone BC/Urine culture (+) for E.Coli Repeat BC remain negative Code(s): A41.9 - SEPSIS, UNSPECIFIED ORGANISM (2) Tachycardia Code(s): R00.0 - TACHYCARDIA, UNSPECIFIED (3) ARF (acute renal failure) Code(s): N17.9 - ACUTE KIDNEY FAILURE, UNSPECIFIED (4) HLD (hyperlipidemia) Code(s): E78.5 - HYPERLIPIDEMIA, UNSPECIFIED Qualifiers: Hyperlipidemia type: pure hypercholesterolemia Qualified Code(s): E78.00 - Pure hypercholesterolemia, unspecified; E78.0 - Pure hypercholesterolemia (5) COPD (chronic obstructive pulmonary disease) Code(s): J44.9 - CHRONIC OBSTRUCTIVE PULMONARY DISEASE, UNSPECIFIED (6) Anemia Code(s): D64.9 - ANEMIA, UNSPECIFIED (7) Anxiety and depression Code(s): F41.9 - ANXIETY DISORDER, UNSPECIFIED; F32.9 - MAJOR DEPRESSIVE DISORDER, SINGLE EPISODE, UNSPECIFIED (8) Alcohol withdrawal Code(s): F10.239 - ALCOHOL DEPENDENCE WITH WITHDRAWAL, UNSPECIFIED (9) HTN (hypertension) Code(s): I10 - ESSENTIAL (PRIMARY) HYPERTENSION Qualifiers: Hypertension type: essential hypertension Qualified Code(s): I10 - Essential (primary) hypertension (10) Cachexia Code(s): R64 - CACHEXIA
[2017-10-01] MEDS: FUROSEMIDE 20 MG TABLET (FP) PO SCH ×2 (06:00→14:27)
[2017-10-01 10:03] LABS: ANION GAP 8 (8-16); BLOOD UREA NITROGEN 30 mg/dL (7-18); CALCIUM 10.2 mg/dL (8.5-10.1); CHLORIDE 99 mmol/L (98-107); CO2 26 mmol/L (21-32); CREATININE 1.1 mg/dL (0.55-1.02); GLUCOSE,RANDOM 137 mg/dL (74-106); POTASSIUM 5.2 mmol/L (3.5-5.1); SODIUM 133 mmol/L (136-145)
[2017-10-01] MEDS ORDERED: PT OWN MED DRAWER 7, Y5N ONE (10:47)
[2017-10-01] MEDS: PRENATAL VITAMINS W/ FOLIC ACID TABLET (FP) PO SCH (10:51)
[2017-10-01] MEDS: FOLIC ACID 1 MG TABLET (FP) PO SCH (10:51)
[2017-10-01] MEDS: NICOTINE 14 MG/24 HOURS TOPICAL PATCH TD SCH (10:51)
[2017-10-01] MEDS: SODIUM BICARBONATE 650 MG TABLET PO SCH (10:52)
[2017-10-01] MEDS: SERTRALINE HCL 50 MG TABLET (FP) PO SCH (10:52)
[2017-10-01] MEDS: CYANOCOBALAMIN 1,000 MCG TABLET (FP) PO SCH (10:52)
[2017-10-01] MEDS: MAGNESIUM CL 64 MG TABLET.SA PO SCH (10:52)
--- NOTE | 2017-10-01 14:31 | PN ---
Progress Note, Physician History of Present Illness: stable no issues family in room - Current Medication List Current Medications: Active Medications Cyanocobalamin (Vitamin B12 -) 1,000 mcg PO DAILY [facility] Last Admin: 10/01/17 10:52 Dose: 1,000 mcg Folic Acid (Folic Acid -) 1 mg PO DAILY [facility] Last Admin: 10/01/17 10:51 Dose: 1 mg Furosemide (Lasix -) 20 mg PO BID@0600,1400 [facility] Last Admin: 10/01/17 14:27 Dose: 20 mg Magnesium Chloride (Slow-Mag -) 128 mg PO DAILY [facility] Last Admin: 10/01/17 10:52 Dose: 128 mg Nicotine (Nicoderm Patch -) 14 mg TD DAILY [facility] Last Admin: 10/01/17 10:51 Dose: 14 mg Multivit/Folic Acid/Iron ( Vitamins (Sjr) -) 1 tab PO DAILY [facility] Last Admin: 10/01/17 10:51 Dose: 1 tab Sertraline HCl (Zoloft -) 50 mg PO DAILY [facility] Last Admin: 10/01/17 10:52 Dose: 50 mg Sodium Bicarbonate (Sodium Bicarbonate -) 650 mg PO DAILY [facility] Last Admin: 10/01/17 10:52 Dose: 650 mg Thiamine HCl (Vitamin B1 -) 100 mg PO HS [facility] Last Admin: 09/30/17 22:38 Dose: 100 mg - Objective Vital Signs: Vital Signs Temperature 98.2 F 10/01/17 10:00 Pulse Rate 83 10/01/17 10:00 Respiratory Rate 18 10/01/17 10:00 Blood Pressure 108/70 10/01/17 10:00 O2 Sat by Pulse Oximetry (%) 94 L 10/01/17 10:00 Constitutional: Yes: No Distress, Calm Cardiovascular: Yes: Regular Rate and Rhythm Respiratory: Yes: Regular, CTA Bilaterally Gastrointestinal: Yes: Normal Bowel Sounds, Soft Musculoskeletal: Yes: WNL Extremities: Yes: WNL Neurological: Yes: Alert, Oriented Psychiatric: Yes: Alert, Oriented Labs: CBC, BMP 09/29/17 06:30 10/01/17 09:00 INR, PTT INR 1.26 (0.82-1.09) H 09/22/17 18:20 Assessment/Plan patient with gm negative bacteremia and uti gm negative bacteremia uti hypoxia lethargy drug abuse etoh abuse ams improved repeat cx negative plan off of abx stable discussed in great detail with family about nutrition and off of drugs
--- NOTE | 2017-10-01 17:36 | PN ---
Progress Note, Physician History of Present Illness: No new complaints - Current Medication List Current Medications: Active Medications Cyanocobalamin (Vitamin B12 -) 1,000 mcg PO DAILY [facility] Last Admin: 10/01/17 10:52 Dose: 1,000 mcg Folic Acid (Folic Acid -) 1 mg PO DAILY [facility] Last Admin: 10/01/17 10:51 Dose: 1 mg Furosemide (Lasix -) 20 mg PO BID@0600,1400 [facility] Last Admin: 10/01/17 14:27 Dose: 20 mg Magnesium Chloride (Slow-Mag -) 128 mg PO DAILY [facility] Last Admin: 10/01/17 10:52 Dose: 128 mg Nicotine (Nicoderm Patch -) 14 mg TD DAILY [facility] Last Admin: 10/01/17 10:51 Dose: 14 mg Multivit/Folic Acid/Iron ( Vitamins (Sjr) -) 1 tab PO DAILY [facility] Last Admin: 10/01/17 10:51 Dose: 1 tab Sertraline HCl (Zoloft -) 50 mg PO DAILY [facility] Last Admin: 10/01/17 10:52 Dose: 50 mg Sodium Bicarbonate (Sodium Bicarbonate -) 650 mg PO DAILY [facility] Last Admin: 10/01/17 10:52 Dose: 650 mg Thiamine HCl (Vitamin B1 -) 100 mg PO HS [facility] Last Admin: 09/30/17 22:38 Dose: 100 mg - Objective Vital Signs: Vital Signs Temperature 97.9 F 10/01/17 14:00 Pulse Rate 91 H 10/01/17 14:00 Respiratory Rate 18 10/01/17 14:00 Blood Pressure 99/71 10/01/17 14:00 O2 Sat by Pulse Oximetry (%) 94 L 10/01/17 10:00 Constitutional: Yes: Cachectic Eyes: Yes: WNL HENT: Yes: WNL Neck: Yes: WNL, Supple Cardiovascular: Yes: WNL, Regular Rate and Rhythm Respiratory: Yes: WNL, Regular, CTA Bilaterally Gastrointestinal: Yes: WNL, Normal Bowel Sounds, Soft Edema: No Labs: CBC, BMP 09/29/17 06:30 10/01/17 09:00 INR, PTT INR 1.26 (0.82-1.09) H 09/22/17 18:20 Problem List - Problems (1) Alcohol withdrawal Assessment/Plan: Pt finished detox w/ librium DC planning to inpt rehab in am Cont thiamine/folic acid Code(s): F10.239 - ALCOHOL DEPENDENCE WITH WITHDRAWAL, UNSPECIFIED (2) Tachycardia Assessment/Plan: Resolved DC planning to inpt rehab in am Code(s): R00.0 - TACHYCARDIA, UNSPECIFIED (3) Acute on chronic diastolic (congestive) heart failure Assessment/Plan: Cont lasix Code(s): I50.33 - ACUTE ON CHRONIC DIASTOLIC (CONGESTIVE) HEART FAILURE (4) Sepsis Assessment/Plan: Pt has been off antibxs BC remained negative Resolved Code(s): A41.9 - SEPSIS, UNSPECIFIED ORGANISM (5) ARF (acute renal failure) Assessment/Plan: Cont to monitor labs Improved creatinine Code(s): N17.9 - ACUTE KIDNEY FAILURE, UNSPECIFIED (6) HLD (hyperlipidemia) Code(s): E78.5 - HYPERLIPIDEMIA, UNSPECIFIED Qualifiers: Hyperlipidemia type: pure hypercholesterolemia Qualified Code(s): E78.00 - Pure hypercholesterolemia, unspecified; E78.0 - Pure hypercholesterolemia (7) COPD (chronic obstructive pulmonary disease) Code(s): J44.9 - CHRONIC OBSTRUCTIVE PULMONARY DISEASE, UNSPECIFIED (8) Anemia Assessment/Plan: Cont folic acid/ferrous sulfate Monitor H/H Code(s): D64.9 - ANEMIA, UNSPECIFIED (9) Anxiety and depression Assessment/Plan: Cont zoloft Code(s): F41.9 - ANXIETY DISORDER, UNSPECIFIED; F32.9 - MAJOR DEPRESSIVE DISORDER, SINGLE EPISODE, UNSPECIFIED (10) HTN (hypertension) Code(s): I10 - ESSENTIAL (PRIMARY) HYPERTENSION Qualifiers: Hypertension type: essential hypertension Qualified Code(s): I10 - Essential (primary) hypertension (11) Cachexia Code(s): R64 - CACHEXIA
--- NOTE | 2017-10-01 18:46 | PN ---
Progress Note, Physician Chief Complaint: Covering for Dr. Pickering Not in distress History of Present Illness: Patient was seen and examined. Awake and alert. Chart was reviewed Denies chest pain, SOB or palpitations Low blood pressure - Current Medication List Current Medications: Active Medications Cyanocobalamin (Vitamin B12 -) 1,000 mcg PO DAILY [facility] Last Admin: 10/01/17 10:52 Dose: 1,000 mcg Folic Acid (Folic Acid -) 1 mg PO DAILY [facility] Last Admin: 10/01/17 10:51 Dose: 1 mg Furosemide (Lasix -) 20 mg PO BID@0600,1400 [facility] Last Admin: 10/01/17 14:27 Dose: 20 mg Magnesium Chloride (Slow-Mag -) 128 mg PO DAILY [facility] Last Admin: 10/01/17 10:52 Dose: 128 mg Nicotine (Nicoderm Patch -) 14 mg TD DAILY [facility] Last Admin: 10/01/17 10:51 Dose: 14 mg Multivit/Folic Acid/Iron ( Vitamins (Sjr) -) 1 tab PO DAILY [facility] Last Admin: 10/01/17 10:51 Dose: 1 tab Sertraline HCl (Zoloft -) 50 mg PO DAILY [facility] Last Admin: 10/01/17 10:52 Dose: 50 mg Sodium Bicarbonate (Sodium Bicarbonate -) 650 mg PO DAILY [facility] Last Admin: 10/01/17 10:52 Dose: 650 mg Thiamine HCl (Vitamin B1 -) 100 mg PO HS [facility] Last Admin: 09/30/17 22:38 Dose: 100 mg - Objective Vital Signs: Vital Signs Temperature 97.9 F 10/01/17 14:00 Pulse Rate 91 H 10/01/17 14:00 Respiratory Rate 18 10/01/17 14:00 Blood Pressure 99/71 10/01/17 14:00 O2 Sat by Pulse Oximetry (%) 94 L 10/01/17 10:00 Eyes: Yes: PERRL HENT: Yes: Atraumatic Neck: Yes: Supple Cardiovascular: Yes: Regular Rate and Rhythm, S1, S2 Respiratory: Yes: CTA Bilaterally Gastrointestinal: Yes: Normal Bowel Sounds, Soft. No: Tenderness Edema: No Labs: 10/01/17 09:00 Problem List - Problems (1) CAD (coronary artery disease) Code(s): I25.10 - ATHSCL HEART DISEASE OF [place] CORONARY ARTERY W/O ANG PCTRS (2) Hx of CABG Code(s): Z95.1 - PRESENCE OF AORTOCORONARY BYPASS GRAFT (3) Acute on chronic diastolic (congestive) heart failure Code(s): I50.33 - ACUTE ON CHRONIC DIASTOLIC (CONGESTIVE) HEART FAILURE (4) Alcohol withdrawal Code(s): F10.239 - ALCOHOL DEPENDENCE WITH WITHDRAWAL, UNSPECIFIED (5) Anemia Code(s): D64.9 - ANEMIA, UNSPECIFIED (6) Anxiety and depression Code(s): F41.9 - ANXIETY DISORDER, UNSPECIFIED; F32.9 - MAJOR DEPRESSIVE DISORDER, SINGLE EPISODE, UNSPECIFIED (7) COPD (chronic obstructive pulmonary disease) Code(s): J44.9 - CHRONIC OBSTRUCTIVE PULMONARY DISEASE, UNSPECIFIED (8) HLD (hyperlipidemia) Code(s): E78.5 - HYPERLIPIDEMIA, UNSPECIFIED Qualifiers: Hyperlipidemia type: pure hypercholesterolemia Qualified Code(s): E78.00 - Pure hypercholesterolemia, unspecified; E78.0 - Pure hypercholesterolemia (9) HTN (hypertension) Code(s): I10 - ESSENTIAL (PRIMARY) HYPERTENSION Qualifiers: Hypertension type: essential hypertension Qualified Code(s): I10 - Essential (primary) hypertension (11) Nicotine dependence Code(s): F17.200 - NICOTINE DEPENDENCE, UNSPECIFIED, UNCOMPLICATED Qualifiers: Nicotine product type: cigarettes Substance use status: uncomplicated Qualified Code(s): F17.210 - Nicotine dependence, cigarettes, uncomplicated Assessment/Plan 1. CAD post CABG, angina pectoris 2. Post MVR (functional MS) 3. Hypertension 4. Hypercholesterolemia 5. ETOH use 6. COPD 7. Acute on chronic diastolic LV failure 8. Anemia PLAN: 1. Continue current medical therapy 2. DVT prophylaxis 3. Diuretics 4. Detox Further plans are to follow. Dr. Pickering to resume care tomorrow Tavo Aviles MD
[2017-10-01] MEDS: THIAMINE HCL 100 MG TABLET (FP) PO SCH (21:19)
[2017-10-02] MEDS: FUROSEMIDE 20 MG TABLET (FP) PO SCH ×2 (05:37→13:16)
--- NOTE | 2017-10-02 08:47 | PN ---
Progress Note, Physician Chief Complaint: no distress Looks much more alert and comfortable - Current Medication List Current Medications: Active Medications Cyanocobalamin (Vitamin B12 -) 1,000 mcg PO DAILY [facility] Last Admin: 10/01/17 10:52 Dose: 1,000 mcg Folic Acid (Folic Acid -) 1 mg PO DAILY [facility] Last Admin: 10/01/17 10:51 Dose: 1 mg Furosemide (Lasix -) 20 mg PO BID@0600,1400 [facility] Last Admin: 10/02/17 05:37 Dose: 20 mg Magnesium Chloride (Slow-Mag -) 128 mg PO DAILY [facility] Last Admin: 10/01/17 10:52 Dose: 128 mg Nicotine (Nicoderm Patch -) 14 mg TD DAILY [facility] Last Admin: 10/01/17 10:51 Dose: 14 mg Multivit/Folic Acid/Iron ( Vitamins (Sjr) -) 1 tab PO DAILY [facility] Last Admin: 10/01/17 10:51 Dose: 1 tab Sertraline HCl (Zoloft -) 50 mg PO DAILY [facility] Last Admin: 10/01/17 10:52 Dose: 50 mg Sodium Bicarbonate (Sodium Bicarbonate -) 650 mg PO DAILY [facility] Last Admin: 10/01/17 10:52 Dose: 650 mg Thiamine HCl (Vitamin B1 -) 100 mg PO HS [facility] Last Admin: 10/01/17 21:19 Dose: 100 mg - Objective Vital Signs: Vital Signs Temperature 98.2 F 10/02/17 04:00 Pulse Rate 80 10/02/17 04:00 Respiratory Rate 18 10/02/17 08:33 Blood Pressure 104/69 10/02/17 04:00 O2 Sat by Pulse Oximetry (%) 96 10/02/17 08:33 Constitutional: Yes: Calm Cardiovascular: Yes: Regular Rate and Rhythm Respiratory: Yes: CTA Bilaterally Gastrointestinal: Yes: Soft Edema: No Neurological: Yes: Alert, Oriented ...Motor Strength: WNL Labs: CBC, BMP 09/29/17 06:30 10/01/17 09:00 INR, PTT INR 1.26 (0.82-1.09) H 09/22/17 18:20 Laboratory Tests 09/22/17 09/22/17 10/01/17 06:49 06:49 09:00 WBC Pending Hgb Pending Plt Count Pending Sodium 140 133 L Potassium 4.7 5.2 H BUN Pending Creatinine Pending 1.1 H Phosphorus Pending Magnesium Pending Ferritin Pending AST Pending ALT Pending Assessment/Plan Assessment/Plan 1. CAD post CABG, angina pectoris 2. Post MVR (functional MS) 3. Hypertension 4. Hypercholesterolemia 5. ETOH use 6. COPD 7. Acute on chronic diastolic LV failure 8. Anemia PLAN: 1. Continue current medical therapy 2. DVT prophylaxis 3. Diuretics 4. Detox 5. F/u thrombocytosis as per PMD Explained she needs to f/u with me in office after rehab to explore options for her functional Mitral Stenosis.
[2017-10-02] MEDS: FOLIC ACID 1 MG TABLET (FP) PO SCH (09:12)
[2017-10-02] MEDS: NICOTINE 14 MG/24 HOURS TOPICAL PATCH TD SCH (09:12)
[2017-10-02] MEDS: PRENATAL VITAMINS W/ FOLIC ACID TABLET (FP) PO SCH (09:12)
[2017-10-02] MEDS: SODIUM BICARBONATE 650 MG TABLET PO SCH (09:12)
[2017-10-02] MEDS: MAGNESIUM CL 64 MG TABLET.SA PO SCH (09:12)
[2017-10-02] MEDS: SERTRALINE HCL 50 MG TABLET (FP) PO SCH (09:12)
[2017-10-02] MEDS: CYANOCOBALAMIN 1,000 MCG TABLET (FP) PO SCH (09:13)
[2017-10-02 10:10] VITALS: BP 109/73; PULSE 89; TEMP 98.4
--- NOTE | 2017-10-02 18:29 | PN ---
Progress Note (short form) - Note Progress Note: Renal Follow up for DANIS Pt seen and examined at the bedside no complaints for discharge home today Vital Signs Temperature 98.4 F 10/02/17 08:00 Pulse Rate 89 10/02/17 08:00 Respiratory Rate 18 10/02/17 08:33 Blood Pressure 109/73 10/02/17 08:00 O2 Sat by Pulse Oximetry (%) 96 10/02/17 08:33 Intake & Output 09/29/17 09/30/17 10/01/17 10/02/17 23:59 23:59 23:59 23:59 Intake Total 660 260 380 300 Balance 660 260 380 300 NAD RRR CTA soft NT/ND NO LE edema CBC, BMP 09/29/17 06:30 10/01/17 09:00 56 year old woman with PMhx of Hypertension, CAD s/p CABG, MVR, Chronic ETOH abuse who was sent from outpatient rehab with tachycardia and found to have BUN/ Cr of 24/1.4 and Na of 129. #DANIS (baseline Cr 0.6) likely secondary to volume depletion but now pt with contrast exposure #Mitral Stenosis #Tachycardia #Metabolic acidosis (non-anion gap)- now resolved #ETOH abuse/withdrawal #Adrenal Lesion #Pylonephritis Renal function stable continue Lasix 20mg BID to follow up in our office in 1-2 weeks Thank you August Lowery DO
== END 2017-10-02 13:42 | disposition home or self-care (01) | DRG 775 ==
LOC: JER 10:56 → JERBED 20:28 → J4W 09-20 21:46 → JICU 09-22 15:23 → J2W 09-23 15:10 → J4S 09-27 15:31
PROVIDERS: ADMIT Internal Medicine; ATTEND Internal Medicine
PROC: HZ2ZZZZ Detoxification Services for Substance Abuse Treatment (ICD-10-PCS; principal; 2017-09-19)
DX: F10.239 Alcohol dependence with withdrawal, unspecified (principal); N17.9 Acute kidney failure, unspecified; E87.1 Hypo-osmolality and hyponatremia; E87.2 Acidosis; E87.6 Hypokalemia; Z95.1 Presence of aortocoronary bypass graft; E78.5 Hyperlipidemia, unspecified; F17.210 Nicotine dependence, cigarettes, uncomplicated; D64.9 Anemia, unspecified; J44.9 Chronic obstructive pulmonary disease, unspecified; F41.8 Other specified anxiety disorders; I11.0 Hypertensive heart disease with heart failure; I50.33 Acute on chronic diastolic (congestive) heart failure; R00.1 Bradycardia, unspecified; I25.119 Atherosclerotic heart disease of native coronary artery with unspecified angina pectoris; R64 Cachexia; Z68.1 Body mass index [BMI] 19.9 or less, adult; E83.42 Hypomagnesemia; N10 Acute pyelonephritis; B96.20 Unspecified Escherichia coli [E. coli] as the cause of diseases classified elsewhere; I27.20 Pulmonary hypertension, unspecified; E43 Unspecified severe protein-calorie malnutrition; A41.9 Sepsis, unspecified organism
CPT/HCPCS: 36415; 36600; 70450-TC; 71045-TC-FY; 71275-TC; 74174-TC; 80048; 80053; 80307; 81003; 81015; 82550; 82570; 82728; 82803; 83540; 83550; 83605; 83690; 83735; 83880; 84100; 84156; 84300; 84484; 84540; 85025; 85610; 87040; 87086; 87186; 93005; 93010; 93306-TC; 94640; 94660; 97116-GP; 97161-GP; 99285-25; J0131; J1644; J7030

== ENCOUNTER 2018-01-09 10:04 | Inpatient (IN) | payer OTHER ==
[2018-01-09 11:09] VITALS: BMI 16.2
--- NOTE | 2018-01-09 12:59 | HP ---
Admission ROS [facility] Chief Complaint: I WANT TO GO TO THE REHAB FOR MY ALCOHOL DRINKING Allergies/Adverse Reactions: Allergies Allergy/AdvReac Type Severity Reaction Status Date / Time No Known Allergies Allergy Verified 01/09/18 12:33 History of Present Illness: 57 YEARS OLD FEMALE WITH LONG HISTORY OF ALCOHOL NICOTINE DEPENDENCE HAS HYPERTENSION ANEMIA NEUROPATHY AND S/P PANCREATITIS AND C-DIFF TREATED WITH VANCOMYCINE ORAL Q6H C 14 DAYS ANXIETY WITH DEPRESSION IS ADMITTED TO REHAB Exam Limitations: No Limitations - Ebola screening Have you traveled outside of the country in the last 21 days: No Have you had contact with anyone from an Ebola affected area: No Have you been sick,other than usual withdrawal symptoms: No Do you have a fever: No - Review of Systems Constitutional: Loss of Appetite, Changes in sleep, Unintentional Wgt. Loss, Unexplained wgt Loss EENT: reports: Blurred Vision (EYE GLASSES) Respiratory: reports: No Symptoms reported Cardiac: reports: No Symptoms Reported, Other (2011 MITRO ALONSO REPLACEMENT) GI: reports: Diarrhea (LAST EPISODE 01/06/18 C-DIFF CLEARED BY INFECTIOUS DISEASE SPECIALIST TO [facility]) : reports: No Symptoms Reported Musculoskeletal: reports: Muscle Weakness (LEGS) Integumentary: reports: No Symptoms Reported Neuro: reports: Seizure (2016 ALCOHOL WITHDRAWAL RELATED) Endocrine: reports: No Symptoms Reported Hematology: reports: No Symptoms Reported Psychiatric: reports: Judgement Intact, Orientated x3, Anxious, Depressed Other Systems: Reviewed and Negative Patient History - Patient Medical History Hx Anemia: No Hx Asthma: No Hx Chronic Obstructive Pulmonary Disease (COPD): No Hx Cancer: No Hx Cardiac Disorders: Yes (MITRAL VALVE [id number]) Hx Congestive Heart Failure: No Hx Hypertension: Yes Hx Hypercholesterolemia: No Hx Pacemaker: No HX Cerebrovascular Accident: No Hx Seizures: Yes (RELATED TO BRAIN [id number]) Hx Dementia: No Hx Diabetes: No Hx Gastrointestinal Disorders: No Hx Liver Disease: No Hx Genitourinary Disorders: No Hx Sexually Transmitted Disorders: No Hx Renal Disease (ESRD): No Hx Thyroid Disease: No Hx Human Immunodeficiency Virus (HIV): No Hx Hepatitis C: No Hx Depression: Yes Hx Suicide Attempt: No Hx Bipolar Disorder: No Hx Schizophrenia: No - Patient Surgical History Past Surgical History: Yes Hx Neurologic Surgery: No (BLEED S/P FALL) Hx Cataract Extraction: No Hx Cardiac Surgery: Yes (01/2012 annuloplasty ring, cabg) Hx Lung Surgery: No Hx Breast Surgery: No Hx Breast Biopsy: No Hx Abdominal Surgery: No Hx Appendectomy: No Hx Cholecystectomy: No Hx Genitourinary Surgery: Yes (left ovary resection in 80s) Hx Section: No Hx Orthopedic Surgery: No Hx Hysterectomy: Yes (2011) Anesthesia Reaction: No - PPD History Previous Implant?: Yes Documented Results: Negative w/proof Implanted On Prior [facility] Admission?: Yes Date: 08/21/16 Results: 0MM PPD to be Administered?: Yes - Reproductive History Patient is a Female of Child Bearing Age (11 -55 yrs old): No Last Menstrual Period: 01/08/97 Patient : No - Smoking Cessation Smoking history: Current every day smoker Have you smoked in the past 12 months: Yes Aproximately how many cigarettes per day: 6 Cigars Per Day: 0 Hx Chewing Tobacco Use: No Initiated information on smoking cessation: Yes 'Breaking Loose' booklet given: 01/09/18 - Substance & Tx. History Hx Alcohol Use: Yes Hx Substance Use: Yes Substance Use Type: Alcohol Hx Substance Use Treatment: Yes (11/3[facility] - Substances Abused Alcohol-vodka Route: Oral Frequency: Daily Amount used: 1/2-1 pt. Age of first use: 19 Date of Last Use: 01/02/18 Family Disease History - Family Disease History Family Disease History: Diabetes: Father (), Mother (), Brother (/RENAL ), Heart Disease: Father, Other: Father, Mother, Brother Admission Physical Exam [facility] - Vital Signs Vital Signs: Vital Signs - 24 hr 01/09/18 11:05 Temperature 97.3 F L Pulse Rate 84 Respiratory 17 Rate Blood Pressure 138/87 - Physical General Appearance: Yes: No Apparent Distress, Appropriately Dressed, Thin HEENTM: Yes: Hearing grossly Normal, Normocephalic, Normal Voice, Other (EYE GLASSES) Respiratory: Yes: Chest Non-Tender, Lungs Clear, Normal Breath Sounds, No Respiratory Distress, No Accessory Muscle Use Neck: Yes: Supple, Trachea in good position Breast: Yes: Breasts Symetrical, No Discharge Cardiology: Yes: Regular Rhythm, Regular Rate, S1, S2 Abdominal: Yes: Normal Bowel Sounds, Non Tender, Soft Genitourinary: Yes: Within Normal Limits Back: Yes: Normal Inspection Extremities: Yes: Normal Inspection, Normal Range of Motion, Non-Tender, Other ( WEAKNESS BOTH LEGS) Neurological: Yes: Fully Oriented, Alert, Motor Strength 5/5 (CANE), Normal Response, Depressed Affect Integumentary: Yes: Warm Lymphatic: Yes: Within Normal Limits - Diagnostic (1) Anemia Current Visit: Yes Status: Chronic Qualifiers: Anemia type: iron deficiency Iron deficiency anemia type: inadequate dietary iron intake Qualified Code(s): D50.8 - Other iron deficiency anemias (2) Anxiety and depression Current Visit: Yes Status: Suspected (3) COPD (chronic obstructive pulmonary disease) Current Visit: Yes Status: Chronic Qualifiers: COPD type: emphysema Emphysema type: unilateral Qualified Code(s): J43.0 - Unilateral pulmonary emphysema [MacLeod's syndrome] (4) HTN (hypertension) Current Visit: Yes Status: Chronic Qualifiers: Hypertension type: essential hypertension Qualified Code(s): I10 - Essential (primary) hypertension (5) History of mitral valve repair Current Visit: Yes Status: Resolved (6) Use of cane as ambulatory aid Current Visit: Yes Status: Chronic (7) Weight loss Current Visit: Yes Status: Acute (8) Alcohol dependence with uncomplicated withdrawal Current Visit: Yes Status: Acute Cleared for Admission S - Detox or Rehab [facility] Level of Care: Observation Bed Detox Regimen/Protocol: Not Applicable Claeared for Rehab Admission: Yes [facility] Breath Alcohol Content Breath Alcohol Content: 0 Urine Pregancy Test - Result Urine Test Results: Negative- NO Line Present Urine Drug Screen - Control Is Test Valid: Yes - Results Drug Screen Negative: No Urine Drug Screen Results: BZO-Benzodiazepines Inpatient Rehab Admission - Initial Determination Are CD services needed?: Yes Free of communicable disease: Yes Not in need of hospitalization: Yes - Rehab Admission Criteria Previous failed treatment: Yes Poor recovery environment: Yes Comorbidities: Yes Lacks judgement: No Patient is meeting Inpatient Rehab admission criteria:: Yes
[2018-01-09] MEDS ORDERED: ACETAMINOPHEN 325 MG TABLET (FP) PO PRN (13:09)
[2018-01-09] MEDS ORDERED: LOPERAMIDE HCL 2 MG CAPSULE PO PRN (13:09)
[2018-01-09] MEDS ORDERED: MENTHOL/PHENOL 1 EACH UD MM PRN (13:09)
[2018-01-09] MEDS ORDERED: MAG HYDROX/AL HYDROX/SIMETH 30 ML UNIT-DOSE CUP PO PRN (13:09)
[2018-01-09] MEDS ORDERED: P-EPHED 60MG/TRIPROLIDI 2.5MG TABLET PO PRN (13:09)
[2018-01-09] MEDS ORDERED: guaiFENesin/D-METHORPHAN HB 10 ML UNIT-DOSE CUPS PO PRN (13:09)
[2018-01-09] MEDS ORDERED: MAGNESIUM CITRATE 300 ML BOTTLE PO PRN (13:09)
[2018-01-09] MEDS ORDERED: MAGNESIUM HYDROX 2400MG/30ML ORAL SUSPENSION 30 ML CUP PO PRN (13:09)
[2018-01-09] MEDS ORDERED: NICOTINE POLACRILEX 2 MG GUM BUC PRN (13:09)
[2018-01-09] MEDS ORDERED: GABAPENTIN 100 MG CAPSULE (FP) PO PRN (13:10)
[2018-01-09] MEDS ORDERED: NAPROXEN 500 MG TABLET (FP) PO PRN (13:10)
[2018-01-09] MEDS: FUROSEMIDE 20 MG TABLET (FP) PO SCH (14:27)
[2018-01-09] MEDS: NICOTINE 14 MG/24 HOURS TOPICAL PATCH TD SCH (14:27)
[2018-01-09] MEDS ORDERED: NAPROXEN 250 MG TABLET (FP) PO PRN (14:54)
[2018-01-09] MEDS: VANCOMYCIN 250 MG/5 ML ORAL SOLUTION PO SCH ×3 (18:50→23:50)
[2018-01-09] MEDS: THIAMINE HCL 100 MG TABLET (FP) PO SCH (21:14)
[2018-01-09] MEDS ORDERED: PT OWN MED DRAWER 7, Y5N ONE ×2 (23:38→23:47)
[2018-01-10] MEDS: FUROSEMIDE 20 MG TABLET (FP) PO SCH ×2 (06:27→13:49)
[2018-01-10] MEDS: VANCOMYCIN 250 MG/5 ML ORAL SOLUTION PO SCH ×4 (06:28→23:14)
--- NOTE | 2018-01-10 08:56 | HP ---
Psychiatrist Admission - Data Date of interview: 01/10/18 Admission source: Self-referred Identifying data: This is the second [facility] admission for this 57 years old single Black female, mother of 3 sons, unemployed on SSD, domiciled living with yonger son Medical History: Significant for anemia, hypertension, neuropathy, seizure disorder, history of pancreatitis, treatment for clostridium difficile and multiple surgeries( mitral valve repair (annuloplasty), neurosurgery for brain aneurysm,CABG and left ophoorectomy). Smokes 6=10 cigarettes daily Psychiatric History: Reports that her first psychiatric contact was earlier this year when she was prescribed Zoloft 50 mg daily for depression and anxiety by Dr Shaikh at [facility]. He saw Dr Shaikh for only a few months. She is now getting medication prescribed by her primary care physician at [address] [place] [address]. Told selling underwriter that she started seeing a psychiatrist at a [facility] but has not been prescribed medication yet. Denies history of previous psychiatric hospitalization or suicidal ideation Physical/Sexual Abuse/Trauma History: Denies history of emotional, physical or sexual abuse as well as DV relationship Additional Comment: Denies criminal history Vital Signs: Vital Signs - 24 hr 01/09/18 01/09/18 01/10/18 11:05 14:20 00:30 Temperature 97.3 F L 97.5 F L Pulse Rate 84 84 Respiratory 17 16 20 Rate Blood Pressure 138/87 128/84 01/10/18 01/10/18 03:30 06:49 Temperature 97.9 F Pulse Rate 99 H Respiratory 18 18 Rate Blood Pressure 116/76 Allergies/Adverse Reactions: Allergies Allergy/AdvReac Type Severity Reaction Status Date / Time No Known Allergies Allergy Verified 01/09/18 12:33 Date of last physical exam: 01/09/18 Concur with the findings of this exam: Yes - Substance Abuse/Tx History Hx Alcohol Use: Yes Hx Substance Use: No Substance Use Type: Alcohol (Started drinking alcohol at age 19, consumes half- one pint daily. Last drank on 01/02/18) Hx Substance Use Treatment: Yes (2 previous inpt detox & one inpt rehab @ [facility]) Mental Status Exam - Mental Status Exam Alert and Oriented to: Time, Place, Person Cognitive Function: Fair Patient Appearance: Well Groomed Mood: Depressed Affect: Appropriate Patient Behavior: Cooperative Speech Pattern: Clear Voice Loudness: Normal Thought Process: Intact Thought Disorder: Not Present Hallucinations: Denies Suicidal Ideation: Denies Homicidal Ideation: Denies Insight/Judgement: Fair Sleep: Poorly Appetite: Good Muscle strength/Tone: Normal Gait/Station: Normal Psychiatric Findings - Problem List ([place] 1, 2,3) (1) Alcohol dependence Current Visit: Yes Status: Resolved (2) Nicotine dependence Current Visit: No Status: Chronic Qualifiers: Nicotine product type: cigarettes Substance use status: uncomplicated Qualified Code(s): F17.210 - Nicotine dependence, cigarettes, uncomplicated (3) Depressive disorder Current Visit: Yes Status: Chronic (4) Alcohol-induced mood disorder Current Visit: Yes Status: Ruled-out (5) Anemia Current Visit: Yes Status: Chronic Qualifiers: Anemia type: iron deficiency Iron deficiency anemia type: inadequate dietary iron intake Qualified Code(s): D50.8 - Other iron deficiency anemias (6) COPD (chronic obstructive pulmonary disease) Current Visit: Yes Status: Chronic Qualifiers: COPD type: emphysema Emphysema type: unilateral Qualified Code(s): J43.0 - Unilateral pulmonary emphysema [MacLeod's syndrome] (7) HTN (hypertension) Current Visit: Yes Status: Chronic Qualifiers: Hypertension type: essential hypertension Qualified Code(s): I10 - Essential (primary) hypertension (8) History of craniotomy Current Visit: No Status: Acute (9) History of mitral valve prosthesis Current Visit: No Status: Acute (10) Pancreatitis Current Visit: No Status: Acute Qualifiers: Chronicity: acute Pancreatitis type: unspecified pancreatitis type Acute pancreatitis complication: unspecified Qualified Code(s): K85.90 - Acute pancreatitis without necrosis or infection, unspecified - Initial Treatment Plan Initial Treatment Plan: 1) Start Melatonin 5 mg po HS prn for insomnia. 2) Monitor progress
[2018-01-10] MEDS: amLODIPine BESYLATE 10 MG TABLET (FP) PO SCH (09:56)
[2018-01-10] MEDS: PRENATAL VITAMINS W/ FOLIC ACID TABLET (FP) PO SCH (09:56)
[2018-01-10] MEDS: NICOTINE 14 MG/24 HOURS TOPICAL PATCH TD SCH (09:56)
[2018-01-10] MEDS: SERTRALINE HCL 50 MG TABLET (FP) PO SCH (09:58)
[2018-01-10] MEDS ORDERED: PT OWN MED DRAWER 7, Y5N ONE (12:02)
--- NOTE | 2018-01-10 12:48 | EKG ---
Test Reason : Blood Pressure : / mmHG Vent. Rate : 084 BPM Atrial Rate : 084 BPM P-R Int : 146 ms QRS Dur : 074 ms QT Int : 388 ms P-R-T Axes : 061 044 070 degrees QTc Int : 458 ms POOR DATA QUALITY, INTERPRETATION MAY BE ADVERSELY AFFECTED NORMAL SINUS RHYTHM POSSIBLE LEFT ATRIAL ENLARGEMENT LEFT VENTRICULAR HYPERTROPHY CANNOT RULE OUT SEPTAL INFARCT , AGE UNDETERMINED ABNORMAL ECG WHEN COMPARED WITH ECG OF 04-JAN-2018 09:24, PREMATURE VENTRICULAR COMPLEXES ARE NO LONGER PRESENT [place] INTERVAL HAS INCREASED MINIMAL CRITERIA FOR SEPTAL INFARCT ARE NOW PRESENT Confirmed by IRMA VILLA, LIZZETH ([id number]) on 01/10/2018 12:47:26 PM Referred By: Confirmed By:LIZZETH SOLIS MD
[2018-01-10] MEDS: THIAMINE HCL 100 MG TABLET (FP) PO SCH (21:09)
[2018-01-10] MEDS: MELATONIN 5 MG TABLETS PO PRN (21:10)
[2018-01-11] MEDS: VANCOMYCIN 250 MG/5 ML ORAL SOLUTION PO SCH ×3 (06:25→18:35)
[2018-01-11] MEDS: FUROSEMIDE 20 MG TABLET (FP) PO SCH ×2 (06:25→13:59)
[2018-01-11] MEDS: SERTRALINE HCL 50 MG TABLET (FP) PO SCH (09:49)
[2018-01-11] MEDS: PRENATAL VITAMINS W/ FOLIC ACID TABLET (FP) PO SCH (09:49)
[2018-01-11] MEDS: NICOTINE 14 MG/24 HOURS TOPICAL PATCH TD SCH (09:49)
[2018-01-11] MEDS: amLODIPine BESYLATE 10 MG TABLET (FP) PO SCH (09:49)
[2018-01-11] MEDS ORDERED: PT OWN MED DRAWER 7, Y5N ONE ×4 (11:43→23:20)
--- NOTE | 2018-01-11 13:43 | PN ---
[facility] Progress Note Note: Vital Signs Temperature 98.0 F 01/11/18 07:14 Pulse Rate 84 01/11/18 08:52 Respiratory Rate 18 01/11/18 07:14 Blood Pressure 129/77 01/11/18 08:52 O2 Sat by Pulse Oximetry (%) Patient was seen at [facility] 01/03/18 - 01/08/18 for Pancreatitis. Labs during admission to [facility] reviewed. Repeat CBC and CMP continue to monitor
[2018-01-11] MEDS: THIAMINE HCL 100 MG TABLET (FP) PO SCH (21:20)
[2018-01-11] MEDS: MELATONIN 5 MG TABLETS PO PRN (21:20)
[2018-01-12] MEDS: VANCOMYCIN 250 MG/5 ML ORAL SOLUTION PO SCH ×5 (01:00→23:36)
[2018-01-12] MEDS ORDERED: PT OWN MED DRAWER 7, Y5N ONE ×3 (05:41→17:36)
[2018-01-12] MEDS: FUROSEMIDE 20 MG TABLET (FP) PO SCH ×2 (06:12→14:13)
[2018-01-12] MEDS: amLODIPine BESYLATE 10 MG TABLET (FP) PO SCH (10:54)
[2018-01-12] MEDS: SERTRALINE HCL 50 MG TABLET (FP) PO SCH (10:54)
[2018-01-12] MEDS: PRENATAL VITAMINS W/ FOLIC ACID TABLET (FP) PO SCH (10:54)
[2018-01-12] MEDS: NICOTINE 14 MG/24 HOURS TOPICAL PATCH TD SCH (10:55)
[2018-01-12 14:59] LABS: BASO % 0.3 % (0-2.0); EOS % 1.6 % (0-4.5); HEMATOCRIT 32.3 % (32.4-45.2); LYMPH % 38.8 % (8-40); MCH 33.2 pg (25.7-33.7); MCHC 33.9 g/dl (32.0-36.0); MEAN PLT VOLUME 10.3 fl (7.5-11.1); MONO % 15.7 % (3.8-10.2); NEUT % 43.6 % (42.8-82.8); PLATELET COUNT 296 K/MM3 (134-434); RDW 18.6 % (11.6-15.6); WHITE BLOOD COUNT 5.3 K/mm3 (4.0-10.0)
[2018-01-12 15:12] LABS: CHLORIDE 105 mmol/L (98-107); POTASSIUM 3.9 mmol/L (3.5-5.1); SODIUM 141 mmol/L (136-145)
[2018-01-12 15:26] LABS: ALBUMIN 3.5 g/dl (3.4-5.0); ALK PHOS 102 U/L (45-117); ANION GAP 10 (8-16); BILIRUBIN,TOTAL 0.2 mg/dL (0.2-1.0); BLOOD UREA NITROGEN 5 mg/dL (7-18); CALCIUM 9.6 mg/dL (8.5-10.1); CO2 26 mmol/L (21-32); CREATININE 0.9 mg/dL (0.55-1.02); GLUCOSE,RANDOM 193 mg/dL (74-106); SGOT/AST 29 U/L (15-37); SGPT/ALT 18 U/L (12-78); TOT PROT 7.3 g/dl (6.4-8.2)
[2018-01-12] MEDS: THIAMINE HCL 100 MG TABLET (FP) PO SCH (21:16)
[2018-01-12] MEDS: MELATONIN 5 MG TABLETS PO PRN (21:16)
[2018-01-12] MEDS: hydrOXYzine PAMOATE 50 MG CAPSULE (FP) PO PRN (21:16)
[2018-01-13] MEDS ORDERED: PT OWN MED DRAWER 7, Y5N ONE (05:49)
[2018-01-13] MEDS: VANCOMYCIN 250 MG/5 ML ORAL SOLUTION PO SCH ×4 (06:23→23:31)
[2018-01-13] MEDS: FUROSEMIDE 20 MG TABLET (FP) PO SCH ×2 (06:23→13:55)
[2018-01-13] MEDS: SERTRALINE HCL 50 MG TABLET (FP) PO SCH (09:42)
[2018-01-13] MEDS: PRENATAL VITAMINS W/ FOLIC ACID TABLET (FP) PO SCH (09:42)
[2018-01-13] MEDS: amLODIPine BESYLATE 10 MG TABLET (FP) PO SCH (09:42)
[2018-01-13] MEDS: NICOTINE 14 MG/24 HOURS TOPICAL PATCH TD SCH (09:42)
[2018-01-13] MEDS: MELATONIN 5 MG TABLETS PO PRN (21:40)
[2018-01-13] MEDS: THIAMINE HCL 100 MG TABLET (FP) PO SCH (21:40)
[2018-01-14] MEDS: VANCOMYCIN 250 MG/5 ML ORAL SOLUTION PO SCH ×4 (06:14→23:51)
[2018-01-14] MEDS: FUROSEMIDE 20 MG TABLET (FP) PO SCH ×2 (06:14→14:06)
[2018-01-14] MEDS: NICOTINE 14 MG/24 HOURS TOPICAL PATCH TD SCH (09:49)
[2018-01-14] MEDS: PRENATAL VITAMINS W/ FOLIC ACID TABLET (FP) PO SCH (09:49)
[2018-01-14] MEDS: SERTRALINE HCL 50 MG TABLET (FP) PO SCH (09:49)
[2018-01-14] MEDS: amLODIPine BESYLATE 10 MG TABLET (FP) PO SCH (09:49)
[2018-01-14] MEDS ORDERED: TUBERCULIN PPD 5 TU/0.1ML VIAL ID ONE (18:35)
[2018-01-14] MEDS: THIAMINE HCL 100 MG TABLET (FP) PO SCH (21:22)
[2018-01-14] MEDS: hydrOXYzine PAMOATE 50 MG CAPSULE (FP) PO PRN (21:22)
[2018-01-14] MEDS: MELATONIN 5 MG TABLETS PO PRN (21:23)
[2018-01-15] MEDS ORDERED: PT OWN MED DRAWER 7, Y5N ONE ×3 (03:19→16:44)
[2018-01-15] MEDS: FUROSEMIDE 20 MG TABLET (FP) PO SCH ×2 (06:49→14:06)
[2018-01-15] MEDS: VANCOMYCIN 250 MG/5 ML ORAL SOLUTION PO SCH ×4 (06:50→23:10)
[2018-01-15] MEDS: PRENATAL VITAMINS W/ FOLIC ACID TABLET (FP) PO SCH (09:59)
[2018-01-15] MEDS: amLODIPine BESYLATE 10 MG TABLET (FP) PO SCH (09:59)
[2018-01-15] MEDS: SERTRALINE HCL 50 MG TABLET (FP) PO SCH (09:59)
[2018-01-15] MEDS: NICOTINE 14 MG/24 HOURS TOPICAL PATCH TD SCH (09:59)
--- NOTE | 2018-01-15 13:58 | PN ---
S Progress Note Note: VANCO LEVEL ON 01/13/18 0.80. PATIENT ON ORAL VANCO FOR CDIFF. WILL CONTINUE ORDERED AND REPEAT VANCO LEVEL IN AM. CONTINUE TO MONITOR CLINICALLY.
[2018-01-15] MEDS ORDERED: TUBERCULIN PPD 5 TU/0.1ML VIAL ID ONE ×2 (16:44→21:13)
[2018-01-15] MEDS: hydrOXYzine PAMOATE 50 MG CAPSULE (FP) PO PRN (21:17)
[2018-01-15] MEDS: MELATONIN 5 MG TABLETS PO PRN (21:17)
[2018-01-15] MEDS: THIAMINE HCL 100 MG TABLET (FP) PO SCH (21:17)
[2018-01-16] MEDS: FUROSEMIDE 20 MG TABLET (FP) PO SCH ×2 (06:14→14:26)
[2018-01-16] MEDS: VANCOMYCIN 250 MG/5 ML ORAL SOLUTION PO SCH ×4 (08:49→23:03)
[2018-01-16] MEDS: NICOTINE 14 MG/24 HOURS TOPICAL PATCH TD SCH (10:07)
[2018-01-16] MEDS: amLODIPine BESYLATE 10 MG TABLET (FP) PO SCH (10:07)
[2018-01-16] MEDS: SERTRALINE HCL 50 MG TABLET (FP) PO SCH (10:08)
[2018-01-16] MEDS: PRENATAL VITAMINS W/ FOLIC ACID TABLET (FP) PO SCH (10:08)
[2018-01-16] MEDS ORDERED: PT OWN MED DRAWER 7, Y5N ONE (10:39)
[2018-01-16] MEDS: hydrOXYzine PAMOATE 50 MG CAPSULE (FP) PO PRN (21:09)
[2018-01-16] MEDS: MELATONIN 5 MG TABLETS PO PRN (21:09)
[2018-01-16] MEDS: THIAMINE HCL 100 MG TABLET (FP) PO SCH (21:09)
[2018-01-17] MEDS: VANCOMYCIN 250 MG/5 ML ORAL SOLUTION PO SCH ×4 (06:25→23:13)
[2018-01-17] MEDS: FUROSEMIDE 20 MG TABLET (FP) PO SCH ×2 (06:25→13:54)
[2018-01-17] MEDS: NICOTINE 14 MG/24 HOURS TOPICAL PATCH TD SCH (10:01)
[2018-01-17] MEDS: SERTRALINE HCL 50 MG TABLET (FP) PO SCH (10:01)
[2018-01-17] MEDS: amLODIPine BESYLATE 10 MG TABLET (FP) PO SCH (10:01)
[2018-01-17] MEDS: PRENATAL VITAMINS W/ FOLIC ACID TABLET (FP) PO SCH (10:01)
[2018-01-17] MEDS ORDERED: TUBERCULIN PPD 5 TU/0.1ML VIAL ID ONE (18:55)
[2018-01-17] MEDS: hydrOXYzine PAMOATE 50 MG CAPSULE (FP) PO PRN (21:24)
[2018-01-17] MEDS: MELATONIN 5 MG TABLETS PO PRN (21:24)
[2018-01-17] MEDS: THIAMINE HCL 100 MG TABLET (FP) PO SCH (21:24)
[2018-01-18] MEDS: FUROSEMIDE 20 MG TABLET (FP) PO SCH ×2 (06:25→14:30)
[2018-01-18] MEDS: VANCOMYCIN 250 MG/5 ML ORAL SOLUTION PO SCH ×4 (06:25→23:37)
[2018-01-18] MEDS: amLODIPine BESYLATE 10 MG TABLET (FP) PO SCH (09:48)
[2018-01-18] MEDS: NICOTINE 14 MG/24 HOURS TOPICAL PATCH TD SCH (09:48)
[2018-01-18] MEDS: PRENATAL VITAMINS W/ FOLIC ACID TABLET (FP) PO SCH (09:48)
[2018-01-18] MEDS: SERTRALINE HCL 50 MG TABLET (FP) PO SCH (09:48)
--- NOTE | 2018-01-18 13:24 | PN ---
[facility] Progress Note Note: Vital Signs Temperature 97.7 F 01/18/18 13:13 Pulse Rate 71 01/18/18 13:13 Respiratory Rate 20 01/18/18 13:13 Blood Pressure 124/83 01/18/18 13:13 O2 Sat by Pulse Oximetry (%) BGM 180 @ 1:00PM 01/18/18 s/p unwitnessed fall. Patient reports while was in the bathroom flushing the toilet she hit the front of her head with the paper towel martinez. She reports she felt a cold sensation on the area of the injury and went to the nurses station, while by the nurses station patient slid by the floor and does not recall how it happen. Patient AOX3 , no distress Sitting in chair conversing, no changes in LOC no adventitious breath sounds skin intact, + tenderness forehead FULL ROM, ambulating independently, gait normal Plan: Fall Protocol #1 Patient sent to [facility] for further evaluation transported via [facility] patient endorsed to RAMY Rosado.
[2018-01-18] MEDS: MELATONIN 5 MG TABLETS PO PRN (21:36)
[2018-01-18] MEDS: THIAMINE HCL 100 MG TABLET (FP) PO SCH (21:36)
[2018-01-18] MEDS: hydrOXYzine PAMOATE 50 MG CAPSULE (FP) PO PRN (21:36)
[2018-01-18] MEDS ORDERED: TUBERCULIN PPD 5 TU/0.1ML VIAL ID ONE (21:38)
[2018-01-19] MEDS: FUROSEMIDE 20 MG TABLET (FP) PO SCH ×2 (06:17→13:31)
[2018-01-19] MEDS: VANCOMYCIN 250 MG/5 ML ORAL SOLUTION PO SCH ×4 (06:17→23:05)
[2018-01-19] MEDS: PRENATAL VITAMINS W/ FOLIC ACID TABLET (FP) PO SCH (10:19)
[2018-01-19] MEDS: amLODIPine BESYLATE 10 MG TABLET (FP) PO SCH (10:19)
[2018-01-19] MEDS: SERTRALINE HCL 50 MG TABLET (FP) PO SCH (10:19)
[2018-01-19] MEDS: NICOTINE 14 MG/24 HOURS TOPICAL PATCH TD SCH (11:00)
[2018-01-19] MEDS: MELATONIN 5 MG TABLETS PO PRN (21:14)
[2018-01-19] MEDS: THIAMINE HCL 100 MG TABLET (FP) PO SCH (21:14)
[2018-01-19] MEDS: hydrOXYzine PAMOATE 50 MG CAPSULE (FP) PO PRN (21:14)
[2018-01-20] MEDS: VANCOMYCIN 250 MG/5 ML ORAL SOLUTION PO SCH ×4 (05:49→23:25)
[2018-01-20] MEDS: FUROSEMIDE 20 MG TABLET (FP) PO SCH ×2 (05:49→14:30)
[2018-01-20] MEDS: NICOTINE 14 MG/24 HOURS TOPICAL PATCH TD SCH (09:48)
[2018-01-20] MEDS: amLODIPine BESYLATE 10 MG TABLET (FP) PO SCH (09:48)
[2018-01-20] MEDS: PRENATAL VITAMINS W/ FOLIC ACID TABLET (FP) PO SCH (09:48)
[2018-01-20] MEDS: SERTRALINE HCL 50 MG TABLET (FP) PO SCH (09:48)
[2018-01-20] MEDS: THIAMINE HCL 100 MG TABLET (FP) PO SCH (21:10)
[2018-01-20] MEDS: MELATONIN 5 MG TABLETS PO PRN (21:11)
[2018-01-20] MEDS: hydrOXYzine PAMOATE 50 MG CAPSULE (FP) PO PRN (21:11)
[2018-01-21] MEDS: FUROSEMIDE 20 MG TABLET (FP) PO SCH ×2 (06:16→14:31)
[2018-01-21] MEDS: VANCOMYCIN 250 MG/5 ML ORAL SOLUTION PO SCH ×2 (06:16→12:45)
[2018-01-21] MEDS: PRENATAL VITAMINS W/ FOLIC ACID TABLET (FP) PO SCH (09:44)
[2018-01-21] MEDS: SERTRALINE HCL 50 MG TABLET (FP) PO SCH (09:44)
[2018-01-21] MEDS: NICOTINE 14 MG/24 HOURS TOPICAL PATCH TD SCH (09:44)
[2018-01-21] MEDS: amLODIPine BESYLATE 10 MG TABLET (FP) PO SCH (09:44)
[2018-01-21] MEDS: MELATONIN 5 MG TABLETS PO PRN (21:15)
[2018-01-21] MEDS: THIAMINE HCL 100 MG TABLET (FP) PO SCH (21:15)
[2018-01-21] MEDS: hydrOXYzine PAMOATE 50 MG CAPSULE (FP) PO PRN (21:16)
[2018-01-22] MEDS: FUROSEMIDE 20 MG TABLET (FP) PO SCH ×2 (06:16→14:25)
--- NOTE | 2018-01-22 09:26 | PN ---
Psychiatric Progress Note Vital Signs: Vital Signs Period Temp Pulse Resp BP Sys/Chávez Pulse Ox Last 24 Hr 97.6 F 61 16-18 144/84 Date of Session: 01/22/18 Chief Complaint:: Discharge visit HPI: Patient addressed Alcohol dependence comorbid with Alcohol induced mood disorder. ROS: HTN,COPD,Anemia,Seizure disorder. Current Medications: Active Medications Generic Name Dose Route Start Last Admin Trade Name Freq PRN Reason Stop Dose Admin Acetaminophen 650 mg 01/09/18 13:09 Tylenol - PO Q4H PRN FEVER Al Hydroxide/Mg Hydroxide 30 ml 01/09/18 13:09 Mylanta Oral Suspension - PO Q6H PRN DYSPEPSIA Amlodipine Besylate 10 mg 01/10/18 10:00 01/21/18 09:44 Norvasc - PO 10 mg DAILY DK Administration Eucalyptus/Menthol/Phenol/Sorbitol 1 each 01/09/18 13:09 Cepastat Lozenge - MM Q4H PRN SORE THROAT Furosemide 20 mg 01/09/18 14:00 01/22/18 06:16 Lasix - PO 20 mg BID@0600,1400 DK Administration Gabapentin 200 mg 01/09/18 13:10 01/21/18 21:17 Neurontin - PO 200 mg HS PRN Administration PAIN Guaifenesin 10 ml 01/09/18 13:09 Robitussin Dm - PO Q6H PRN COUGH Hydroxyzine Pamoate 50 mg 01/12/18 13:40 01/21/18 21:16 Vistaril - PO 50 mg Q4H PRN Administration ANXIETY Loperamide HCl 4 mg 01/09/18 13:09 Imodium - PO Q6H PRN DIARRHEA Magnesium Citrate 300 ml 01/09/18 13:09 Citroma - PO Q48H PRN CONSTIPATION Magnesium Hydroxide 30 ml 01/09/18 13:09 Milk Of Magnesia - PO DAILY PRN CONSTIPATION Melatonin 5 mg 01/09/18 22:00 01/21/18 21:15 Melatonin PO 5 mg HS PRN Administration INSOMNIA Naproxen 250 mg 01/09/18 14:54 Naprosyn - PO BID PRN PAIN LEVEL 4 - 6 Nicotine 14 mg 01/09/18 14:15 01/21/18 09:44 Nicoderm Patch - TD 14 mg DAILY DK Administration Nicotine Polacrilex 2 mg 01/09/18 13:09 Nicorette Gum - BUC Q2H PRN NICOTINE REPLACEMENT RX Multivit/Folic Acid/Iron 1 tab 01/10/18 10:00 01/21/18 09:44 Vitamins (Sjr) - PO 1 tab DAILY DK Administration Pseudoephedrine/Triprolidine 1 combo 01/09/18 13:09 Actifed - PO TID PRN NASAL CONGESTION Sertraline HCl 50 mg 01/10/18 10:00 01/21/18 09:44 Zoloft - PO 50 mg DAILY DK Administration Thiamine HCl 100 mg 01/09/18 22:00 01/21/18 21:15 Vitamin B1 - PO 100 mg HS DK Administration Current Side Effect: No Lab tests ordered: No Lab tests reviewed: Yes Provider note:: Patient will complete this program tomorrow 01/23/18.She has met her treatment goals and will continue to address her issues on outpatient basis at [facility] rehab program.Patient continues to find that current medications help to cope with mood instability,anxiety,depression,craving for alcohol.Scripts for Zoloft 50 mg po daily,Campral 333 mg po 2 tab tid for 30 days supply provided. Supportive therapy provided focusing on relapse prevention,coping skills,support utilization has been discussed . Patient is stable for discharge tomorrow 01/23/18. Total face to face time:: 30 Mental Status Exam - Mental Status Exam Alert and Oriented to: Time, Place, Person Cognitive Function: Grossly Intact Patient Appearance: Well Groomed Mood: Hopeful, Euthymic Affect: Appropriate, Mood Congruent Patient Behavior: Cooperative Speech Pattern: Clear Voice Loudness: Normal Thought Process: Goal Oriented Thought Disorder: Not Present Hallucinations: Denies Suicidal Ideation: Denies Homicidal Ideation: Denies Insight/Judgement: Fair Sleep: Fair Appetite: Good Muscle strength/Tone: Normal Gait/Station: Normal Psychiatric Treatment Plan - Problem List (1) Anemia Current Visit: Yes Qualifiers: Anemia type: iron deficiency Iron deficiency anemia type: inadequate dietary iron intake Qualified Code(s): D50.8 - Other iron deficiency anemias (2) COPD (chronic obstructive pulmonary disease) Current Visit: Yes Qualifiers: COPD type: emphysema Emphysema type: unilateral Qualified Code(s): J43.0 - Unilateral pulmonary emphysema [MacLeod's syndrome] (3) HTN (hypertension) Current Visit: Yes Qualifiers: Hypertension type: essential hypertension Qualified Code(s): I10 - Essential (primary) hypertension (4) Alcohol dependence Current Visit: Yes (5) Pancreatitis Current Visit: Yes Qualifiers: Chronicity: acute Pancreatitis type: unspecified pancreatitis type Acute pancreatitis complication: unspecified Qualified Code(s): K85.90 - Acute pancreatitis without necrosis or infection, unspecified (6) Pyelonephritis Current Visit: Yes (7) MDMA abuse Current Visit: Yes (8) Nicotine dependence Current Visit: Yes Qualifiers: Nicotine product type: cigarettes Substance use status: uncomplicated Qualified Code(s): F17.210 - Nicotine dependence, cigarettes, uncomplicated (9) Substance induced mood disorder Current Visit: No
[2018-01-22] MEDS: PRENATAL VITAMINS W/ FOLIC ACID TABLET (FP) PO SCH (10:08)
[2018-01-22] MEDS: SERTRALINE HCL 50 MG TABLET (FP) PO SCH (10:08)
[2018-01-22] MEDS: NICOTINE 14 MG/24 HOURS TOPICAL PATCH TD SCH (10:08)
[2018-01-22] MEDS: amLODIPine BESYLATE 10 MG TABLET (FP) PO SCH (10:08)
[2018-01-22] MEDS ORDERED: PT OWN MED DRAWER 7, Y5N ONE (13:37)
[2018-01-22] MEDS: ACAMPROSATE CALCIUM 333 MG TABLET.DR PO SCH ×2 (15:39→21:38)
[2018-01-22] MEDS: hydrOXYzine PAMOATE 50 MG CAPSULE (FP) PO PRN (21:37)
[2018-01-22] MEDS: THIAMINE HCL 100 MG TABLET (FP) PO SCH (21:38)
[2018-01-23 07:01] VITALS: TEMP 97.8
[2018-01-23] MEDS: ACAMPROSATE CALCIUM 333 MG TABLET.DR PO SCH (07:01)
[2018-01-23] MEDS: FUROSEMIDE 20 MG TABLET (FP) PO SCH (07:01)
[2018-01-23] MEDS: SERTRALINE HCL 50 MG TABLET (FP) PO SCH (09:07)
[2018-01-23] MEDS: amLODIPine BESYLATE 10 MG TABLET (FP) PO SCH (09:07)
[2018-01-23] MEDS: PRENATAL VITAMINS W/ FOLIC ACID TABLET (FP) PO SCH (09:07)
[2018-01-23] MEDS: NICOTINE 14 MG/24 HOURS TOPICAL PATCH TD SCH (09:08)
[2018-01-23 09:28] VITALS: BP 124/75; PULSE 88
== END 2018-01-23 10:25 | disposition home or self-care (01) | DRG 772 ==
LOC: YASAS 10:04 → Y3E 13:21
PROVIDERS: ADMIT Psychiatry & Neurology Psychiatry; ATTEND Psychiatry & Neurology Psychiatry
PROC: HZ42ZZZ Group Counseling for Substance Abuse Treatment, Cognitive-Behavioral (ICD-10-PCS; principal; 2018-01-09)
DX: F10.20 Alcohol dependence, uncomplicated (principal); F15.10 Other stimulant abuse, uncomplicated; F17.210 Nicotine dependence, cigarettes, uncomplicated; F32.9 Major depressive disorder, single episode, unspecified; F41.8 Other specified anxiety disorders; F10.24 Alcohol dependence with alcohol-induced mood disorder; I10 Essential (primary) hypertension; K85.90 Acute pancreatitis without necrosis or infection, unspecified; N12 Tubulo-interstitial nephritis, not specified as acute or chronic; D50.8 Other iron deficiency anemias; J43.0 Unilateral pulmonary emphysema [MacLeod's syndrome]; R26.2 Difficulty in walking, not elsewhere classified; Z99.89 Dependence on other enabling machines and devices; R63.4 Abnormal weight loss; Z68.1 Body mass index [BMI] 19.9 or less, adult; Z98.890 Other specified postprocedural states
CPT/HCPCS: 36415; 80053; 82962; 85025; 93005; 93010; G0480

== ENCOUNTER 2018-01-18 14:01 | Emergency (ER) | payer OTHER ==
[2018-01-18 14:34] VITALS: BP 116/66; PULSE 63; TEMP 98; BMI 17.9
--- NOTE | 2018-01-18 17:13 | PDOC ---
Attending Attestation - Resident Resident Name: SeanAlberto - ED Attending Attestation I have performed the following: I have examined & evaluated the patient, The case was reviewed & discussed with the resident, I agree w/resident's findings & plan, Exceptions are as noted - Medical Decision Making 01/18/18 17:13 I, Dr. Jen Henley, DO, attest that this document has been prepared under my direction and personally reviewed by me in its entirety. I further attest, that it accurately reflects all work, treatment, procedures and medical decision -making performed by me. 01/18/18 18:43 a/p: 57yo female with closed head injury while at rehab -was flushing the toilet and hit her head on the paper towel martinez -sent from [facility] for eval of closed head injury -will obtain head ct -no external signs of trauma -neuro intact -ambulatory with an steady gait 01/18/18 18:[address] negative for acute findings neuro intact pt requesting to go back to rehab pt stable for d.c back to rehab <Jen Henley - Last Filed: 01/18/18 18:43> - HPI HPI: 01/18/18 17:26 The patient is a 57 year old female [facility] sent from rehab facility s/p unwitnessed fall with head injury today. Denies LOC. Denies chest pain, lightheadedness, or peripheral edema. Denies headache, blurred vision, numbness, tingling, focal weakness. Denies nausea, vomiting, or diarrhea. Denies fever or chills. - Physicial Exam PE: 01/18/18 19:48 Constitutional: Awake, alert, oriented. No acute distress. Head: Normocephalic. Atraumatic Eyes: PERRL. EOMI. Conjunctivae are not pale. ENT: Mucous membranes are moist and intact. Posterior pharynx without exudates or erythema. Uvula midline. Neck: Supple. Full ROM. No lymphadenopathy. Cardiovascular: Regular rate. Regular rhythm. S1, S2 regular. Distal pulses are 2+ and symmetric. Pulmonary/Chest: No evidence of respiratory distress. Clear to auscultation bilaterally No wheezing, rales or rhonchi. Abdominal: Soft and non-distended. There is no tenderness. No rebound, guarding or rigidity. No organomegaly. No palpable masses. Good bowel sounds. Back: No CVA tenderness. Musculoskeletal: No edema. No cyanosis. No clubbing. Full range of motion in all extremities. Nocalf tenderness. Radial/pedal pulses are intact and 2+ bilaterally Skin: Skin is warm and dry. No petechiae. No purpura. Neurological: Alert and oriented to person, place, and time. Cranial nerves II -XII are grossly intact. Normal speech. Strength is grossly symmetric. No sensory deficits. Psychiatric: Good eye contact. Normal interaction, affect and behavior. Documentation prepared by Mildred Fonseca, acting as medical records coordinator for Jen Henley DO. <Mildred Fonseca - Last Filed: 01/18/18 19:48>
--- NOTE | 2018-01-18 17:38 | PDOC ---
History of Present Illness - General Chief Complaint: Injury Stated Complaint: FALL Time Seen by Provider: 01/18/18 16:09 History Source: Patient Exam Limitations: No Limitations - History of Present Illness Initial Comments: 01/18/18 17:33 57F with pmh of alcohol abuse and withdrawal, seizures, [facility] in [facility], sent from institution after bending over and hitting her head on the paper towel dispenser upon standing. Said to have lost consciousness briefly as she fell down. No laceration or signs or tauma to the head. States that her left forhead/buddhist hurts a bit. Denies nausea, vomiting. Past History - Past Medical History Allergies/Adverse Reactions: Allergies Allergy/AdvReac Type Severity Reaction Status Date / Time No Known Allergies Allergy Verified 01/18/18 14:28 Home Medications: Ambulatory Orders Ferrous Sulfate 325 mg PO DAILY 01/31/17 Gabapentin [Neurontin -] 200 mg PO HS PRN 07/24/17 Folic Acid - 1 mg PO DAILY #30 tablet 10/02/17 Vitamins (Sjr) - 1 tab PO DAILY #30 tablet 10/02/17 Thiamine HCl [Vitamin B1 -] 100 mg PO HS #30 tablet 01/08/18 Naproxen [Naprosyn -] 500 mg PO BID 01/09/18 Amlodipine Besylate [Norvasc -] 10 mg PO DAILY #30 tablet 01/12/18 Furosemide [Lasix -] 20 mg PO BID@0600,1400 #60 tablet 01/12/18 Sertraline HCl [Zoloft -] 50 mg PO DAILY #30 tablet 01/12/18 Vancomycin Oral Solution 125 mg PO Q6HPO 10 Days #2 bottle 01/12/18 Anemia: No Asthma: No Cancer: No Cardiac Disorders: Yes (MITRAL VALVE [id number]) CVA: No COPD: No CHF: No DVT: No Dementia: No Diabetes: No GI Disorders: No Disorders: No HTN: Yes Hypercholesterolemia: No Kidney Stones: No Liver Disease: No Psychiatric Problems: Yes (panic attacks) Seizures: Yes (RELATED TO BRAIN [id number]) Thyroid Disease: No - Surgical History Abdominal Surgery: No Appendectomy: No Cardiac Surgery: Yes (01/2012 annuloplasty ring, cabg) Cholecystectomy: No Lung Surgery: No Neurologic Surgery: No (BLEED S/P FALL) Orthopedic Surgery: No - Reproductive History PID: No - Immunization History Immunization Up to Date: Yes - Suicide/Smoking/Psychosocial Hx Smoking Status: Yes Smoking History: Current every day smoker Have you smoked in the past 12 months: Yes Number of Cigarettes Smoked Daily: 6 Cigars Per Day: 0 Information on smoking cessation initiated: No 'Breaking Loose' booklet given: 01/09/18 Hx Alcohol Use: No Drug/Substance Use Hx: No Substance Use Type: Alcohol (Started drinking alcohol at age 19, consumes half- one pint daily. Last drank on 01/02/18) Hx Substance Use Treatment: Yes (2 previous inpt detox & one inpt rehab @ [facility]) Trauma Specific PMHX - Complaint Specific PMHX Arthritis: No Review of Systems - Review of Systems Able to Perform ROS?: Yes Is the patient limited Slovak proficient: No Constitutional: No: Symptoms Reported HEENTM: No: Symptoms Reported Respiratory: No: Symptoms reported Cardiac (ROS): No: Symptoms Reported ABD/GI: No: Symptoms Reported : No: Symptoms Reported Musculoskeletal: No: Symptoms Reported Integumentary: No: Symptoms Reported, Bruising, Change in Color, Erythema Neurological: No: Symptoms reported All Other Systems: Reviewed and Negative *Physical Exam - Vital Signs Last Vital Signs Temp Pulse Resp BP Pulse Ox 98.0 F 63 18 116/66 97 01/18/18 14:28 01/18/18 14:28 01/18/18 14:28 01/18/18 14:28 01/18/18 14:28 - Physical Exam General Appearance: Yes: Nourished, Appropriately Dressed, Thin. No: Apparent Distress HEENT: positive: EOMI, FABIAN, Normal ENT Inspection Respiratory/Chest: positive: Lungs Clear, Normal Breath Sounds. negative: Chest Tender, Respiratory Distress Cardiovascular: positive: Regular Rhythm, Regular Rate, S1, S2 Gastrointestinal/Abdominal: positive: Normal Bowel Sounds, Flat, Soft. negative : Tender Musculoskeletal: positive: Normal Inspection Integumentary: positive: Normal Color, Dry, Warm Neurologic: positive: superior court justice II-XII NML intact, Fully Oriented, Alert, Normal Mood/ Affect, Normal Response, Motor Strength 5/5 ED Treatment Course - RADIOLOGY Radiology Studies Ordered: Category Date Time Status HEAD CT WITHOUT CONTRAST [CT] Stat CT Scan 01/18/18 16:42 Ordered Medical Decision Making - Medical Decision Making 01/18/18 17:[address], Discharge back to [facility] if negative 01/18/18 18:10 CT: negative, can go back to [facility]. *DC/Admit/Observation/Transfer Diagnosis at time of Disposition: Closed head injury with brief loss of consciousness - Discharge Dispostion Disposition: HOME Decision to Admit order: No - Referrals Referrals: Kenneth Alvarez MD [Primary Care Provider] - - Patient Instructions Printed Discharge Instructions: DI for Closed Head Injury Additional Instructions: Continue treatment at [facility] Facility Come back to the ER for any new, worsening or concerning symptom. - Post Discharge Activity
== END 2018-01-18 20:15 | disposition home or self-care (01) ==
LOC: JER 14:01
DX: S06.9X9A Unspecified intracranial injury with loss of consciousness of unspecified duration, initial encounter (principal); W22.8XXA Striking against or struck by other objects, initial encounter; Y93.E8 Activity, other personal hygiene; Y92.231 Patient bathroom in hospital as the place of occurrence of the external cause; Y99.8 Other external cause status; I25.10 Atherosclerotic heart disease of native coronary artery without angina pectoris; Z95.1 Presence of aortocoronary bypass graft; I10 Essential (primary) hypertension; F41.0 Panic disorder [episodic paroxysmal anxiety]; F10.230 Alcohol dependence with withdrawal, uncomplicated; Z86.79 Personal history of other diseases of the circulatory system
CPT/HCPCS: 70450-TC; 99281-25

== ENCOUNTER 2018-05-01 12:14 | Inpatient (IN) | payer OTHER ==
[2018-05-01] MEDS ORDERED: SODIUM CHLORIDE 1,000 ML IV STA (12:23)
[2018-05-01 12:24] VITALS: BMI 17.4
--- NOTE | 2018-05-01 12:29 | PDOC ---
History of Present Illness <Kaylyn Elizabeth - Last Filed: 05/01/18 14:18> - General History Source: Patient - History of Present Illness Timing/Duration: reports: just prior to arrival <Sukhdeep Dutta - Last Filed: 05/01/18 14:54> - General Stated Complaint: CHEST TIGHTNESS Time Seen by Provider: 05/01/18 12:18 Past History <Kaylyn Elizabeth - Last Filed: 05/01/18 14:18> - Past Medical History Anemia: No Asthma: No Cancer: No Cardiac Disorders: Yes (MITRAL VALVE [id number]) CVA: No COPD: No CHF: No DVT: No Dementia: No Diabetes: No GI Disorders: No Disorders: No HTN: Yes Hypercholesterolemia: No Kidney Stones: No Liver Disease: No Psychiatric Problems: Yes (panic attacks) Seizures: Yes (RELATED TO BRAIN [id number]) Thyroid Disease: No - Surgical History Abdominal Surgery: No Appendectomy: No Cardiac Surgery: Yes (01/2012 annuloplasty ring, cabg) Cholecystectomy: No Lung Surgery: No Neurologic Surgery: No (BLEED S/P FALL) Orthopedic Surgery: No - Reproductive History PID: No - Immunization History Immunization Up to Date: Yes - Suicide/Smoking/Psychosocial Hx Smoking Status: Yes Smoking History: Current every day smoker Have you smoked in the past 12 months: Yes Number of Cigarettes Smoked Daily: 6 Cigars Per Day: 0 Information on smoking cessation initiated: Yes 'Breaking Loose' booklet given: 01/09/18 Hx Alcohol Use: Yes Drug/Substance Use Hx: Yes Substance Use Type: Alcohol Hx Substance Use Treatment: Yes (2 previous inpt detox & one inpt rehab @ [facility]) <Lisbeth DuttaFabioCindy - Last Filed: 05/01/18 14:54> - Past Medical History Allergies/Adverse Reactions: Allergies Allergy/AdvReac Type Severity Reaction Status Date / Time No Known Allergies Allergy Verified 01/18/18 14:28 Home Medications: Ambulatory Orders Ferrous Sulfate 325 mg PO DAILY 01/31/17 Gabapentin [Neurontin -] 200 mg PO HS PRN 07/24/17 Folic Acid - 1 mg PO DAILY #30 tablet 10/02/17 Vitamins (Sjr) - 1 tab PO DAILY #30 tablet 10/02/17 Thiamine HCl [Vitamin B1 -] 100 mg PO HS #30 tablet 01/08/18 Naproxen [Naprosyn -] 500 mg PO BID 01/09/18 Amlodipine Besylate [Norvasc -] 10 mg PO DAILY #30 tablet 01/12/18 Furosemide [Lasix -] 20 mg PO BID@0600,1400 #60 tablet 01/12/18 Sertraline HCl [Zoloft -] 50 mg PO DAILY #30 tablet 01/12/18 Vancomycin Oral Solution 125 mg PO Q6HPO 10 Days #2 bottle 01/12/18 Acamprosate Calcium [Campral -] 666 mg PO TID #120 tablet. 01/22/18 Sertraline HCl [Zoloft -] 50 mg PO DAILY #30 tablet 01/22/18 Respiratory Specific PMHX - Complaint Specific PMHX TB (Tuberculosis): No <Sukhdeep Dutta - Last Filed: 05/01/18 14:54> Review of Systems - Review of Systems Constitutional: No: Chills, Fever Respiratory: Yes: Shortness of Breath. No: Cough, Wheezing Cardiac (ROS): Yes: Chest Pain, Chest Tightness. No: Lightheadedness, Palpitations, Syncope ABD/GI: No: Nausea, Vomiting, Abdominal cramping <Sukhdeep Dutta - Last Filed: 05/01/18 14:54> *Physical Exam - Vital Signs Last Vital Signs Temp Pulse Resp BP Pulse Ox 98.7 F 67 18 159/99 97 05/01/18 12:20 05/01/18 12:20 05/01/18 12:20 05/01/18 12:20 05/01/18 12:20 <Kaylyn Elizabeth - Last Filed: 05/01/18 14:18> - Vital Signs Last Vital Signs Temp Pulse Resp BP Pulse Ox 98.7 F 67 18 159/99 97 05/01/18 12:20 05/01/18 12:20 05/01/18 12:20 05/01/18 12:20 05/01/18 12:20 - Physical Exam Comments: 05/01/18 12:28 Pt initially in NAD but at some point, became suddenly tremulous and appeared to have difficulty breathing which improved within seconds, stable on monitor General Appearance: Yes: Appropriately Dressed HEENT: positive: Normal Voice Neck: positive: Supple Respiratory/Chest: positive: Lungs Clear, Normal Breath Sounds. negative: Respiratory Distress Cardiovascular: positive: Regular Rate, S1, S2 Vascular Pulses: Femoral (R): 0, Femoral (L): 0, Carotid (R): 0, Carotid (L): 0 , Dorsalis-Pedis (R): 0, Doralis-Pedis (L): 0 Gastrointestinal/Abdominal: positive: Soft. negative: Tender Integumentary: positive: Dry, Warm Neurologic: positive: Fully Oriented, Alert, Normal Mood/Affect <Sukhdeep Dutta - Last Filed: 05/01/18 14:54> ED Treatment Course - LABORATORY CBC & Chemistry Diagram: 05/01/18 13:06 05/01/18 12:23 <Kaylyn Elizabeth - Last Filed: 05/01/18 14:18> - LABORATORY CBC & Chemistry Diagram: 05/01/18 13:06 05/01/18 12:23 - RADIOLOGY Radiology Studies Ordered: Category Date Time Status CHEST X-RAY PORTABLE* [RAD] Stat Radiology 05/01/18 12:23 Ordered <Sukhdeep Dutta - Last Filed: 05/01/18 14:54> Medical Decision Making - Medical Decision Making The patient was seen and evaluated in conjunction with midlevel provider under my direct supervision, ancillary studies were reviewed. I agree with the plan as outlined by RAMY Dutta. in short 57 YOF HTN, MVR, CAD s/p CABG, anemia, COPD, anxiety, depression, alcohol abuse, pancreatitis with CP while at day program today, a/w tremors and sob, which has since resolved. now with substernal chest pain, nonradiating and nonexertional. +fam hx NM in father. known ETOH use. agree with phys exam as documented. vital signs reviewed, wnl. no tachycardia, no respiratory distress or hypoxia. NAD EKG normal sinus rhythm, no interval abnormalities, narrow QRS, ST and T wave segments and morphology normal. Nonspecific T wave abnormalities, unchanged EKG from prior (old TWI in V1-2) 2 trops, reeval. r/o ACS, no acute events in the ED> trop negative initially. given valium to tx suspected anxiety vs early ETOH w/d (currently in day program , last drink yesterday, so fitting into timeline for ETOH w/d). on reassessment, still 7/10 chest pain. will give aspirin admit to obs tele for r/o ACS and continued monitoring, also alcohol w/d treatment. 05/01/18 13:26 05/01/18 14:18 <Kaylyn Elizabeth - Last Filed: 05/01/18 14:18> - Medical Decision Making 05/01/18 12:24 57-year-old female, history of HTN, MVR, CAD s/p CABG, anemia, COPD, anxiety, depression, alcohol abuse, pancreatitis, here with tremors and shortness of breath. Patient states while at her substance abuse day program today she suddently began feeling tremulous and short of breath. States staff then called EMS. Pt reports feeling better now, but has some vague chest tightness. Unsure if current symptoms feels like her previous anxiety or alcohol withdrawal. Last ETOH intake was yesterday per patient. No diaphoresis, n/v. See exam Possible anxiety vs ETOH withdrawal, r/o ACS, less likely PE or dissection Stable but appears anxious at bedside -ekg -cxr -labs -dose of diazepam -IVF -dispo pending 05/01/18 13:48 EKG unchanged, cxr neg, trop x 1 neg. Pt continues to report come CP. As d/w ED attg, will give dose of asa and admit to OBs for telemetry 05/01/18 14:53 Case d/w Dr Colon (coverage for Dr Kenneth Alvarez) and pt admitted. MD lacey c/w Dr Steele of cards. <Sukhdeep Dutta - Last Filed: 05/01/18 14:54> *DC/Admit/Observation/Transfer <ClaraKaylynjaron Aviles - Last Filed: 05/01/18 14:18> - Discharge Dispostion Decision to Admit order: Yes <Sukhdeep Dutta - Last Filed: 05/01/18 14:54> Diagnosis at time of Disposition: Tremor Chest pain Qualifiers: Chest pain type: unspecified Qualified Code(s): R07.9 - Chest pain, unspecified - Discharge Dispostion Condition at time of disposition: Fair - Referrals Referrals: Kenneth Alvarez MD [Primary Care Provider] - - Patient Instructions - Post Discharge Activity
[2018-05-01] MEDS ORDERED: diazePAM CARPU-JECT 10 MG/2 ML DISP.SYRIN IVPUSH ONE (12:30)
[2018-05-01 13:19] LABS: EOS % 0.9 % (0-4.5); HEMATOCRIT 33.9 % (32.4-45.2); HEMOGLOBIN 12.1 GM/dL (10.7-15.3); LYMPH % 44.1 % (8-40); MCH 34.7 pg (25.7-33.7); MCHC 35.8 g/dl (32.0-36.0); MEAN CELL VOLUME 96.9 fl (80-96); MEAN PLT VOLUME 9.8 fl (7.5-11.1); MONO % 9.7 % (3.8-10.2); NEUT % 44.3 % (42.8-82.8); PLATELET COUNT 202 K/MM3 (134-434); RDW 15.2 % (11.6-15.6); WHITE BLOOD COUNT 4.4 K/mm3 (4.0-10.0)
[2018-05-01] MEDS ORDERED: LORazepam 1 MG TABLET PO ONE ×2 (13:28→13:29)
[2018-05-01] MEDS ORDERED: LORazepam 2 MG/ML SDV VIAL ONE (13:38)
[2018-05-01] MEDS ORDERED: ASPIRIN 325 MG TABLET PO ONE (13:44)
[2018-05-01 14:04] LABS: ALK PHOS 98 U/L (45-117); ANION GAP 14 MMOL/L (8-16); BILIRUBIN,TOTAL 0.4 mg/dL (0.2-1); BLOOD UREA NITROGEN 21 mg/dL (7-18); CALCIUM 8.5 mg/dL (8.5-10.1); CHLORIDE 102 mmol/L (98-107); CO2 21 mmol/L (21-32); CREATININE 1.1 mg/dL (0.55-1.3); GLUCOSE,RANDOM 100 mg/dL (74-106); LIPASE 79 U/L (73-393); POTASSIUM 3.2 mmol/L (3.5-5.1); SGOT/AST 153 U/L (15-37); SGPT/ALT 42 U/L (13-61); SODIUM 138 mmol/L (136-145); TOT PROT 7.8 g/dl (6.4-8.2)
[2018-05-01] MEDS ORDERED: ASPIRIN 325 MG TABLET ONE (14:06)
[2018-05-01 14:49] LABS: URINE APPEARANCE CLEAR; URINE BILIRUBIN NEGATIVE (<2.0 mg/dL); URINE COLOR COLORLESS; URINE GLUCOSE (UA) NEGATIVE (NEGATIVE); URINE KETONE NEGATIVE (NEGATIVE); URINE LEUK ESTERASE NEGATIVE (NEGATIVE); URINE NITRITE NEGATIVE (NEGATIVE); URINE PROTEIN NEGATIVE (NEGATIVE); URINE UROBILINOGEN NEGATIVE mg/dL (0.2-1.0)
--- NOTE | 2018-05-01 15:52 | EKG ---
Test Reason : Blood Pressure : / mmHG Vent. Rate : 063 BPM Atrial Rate : 063 BPM P-R Int : 118 ms QRS Dur : 078 ms QT Int : 444 ms P-R-T Axes : 040 043 054 degrees QTc Int : 454 ms SINUS RHYTHM WITH PREMATURE VENTRICULAR COMPLEXES OR FUSION COMPLEXES VOLTAGE CRITERIA FOR LEFT VENTRICULAR HYPERTROPHY CANNOT RULE OUT SEPTAL INFARCT (CITED ON OR BEFORE 09-JAN-2018) ABNORMAL ECG WHEN COMPARED WITH ECG OF 09-JAN-2018 17:03, FUSION COMPLEXES ARE NOW PRESENT PREMATURE VENTRICULAR COMPLEXES ARE NOW PRESENT NON-SPECIFIC CHANGE IN ST SEGMENT IN INFERIOR LEADS Confirmed by Chet Farmer ([id number]) on 05/01/2018 3:51:41 PM Referred By: Confirmed By:Chet Farmer
[2018-05-01] MEDS ORDERED: GABAPENTIN 100 MG CAPSULE (FP) PO ONE (22:30)
[2018-05-01] MEDS ORDERED: GABAPENTIN 100 MG CAPSULE (FP) PO PRN (23:38)
[2018-05-01] MEDS ORDERED: ALBUTEROL SO4 2.5/IPRATROPIUM 0.5 INH SOL 3 ML VIAL.NEB. NEB PRN (23:42)
[2018-05-01] MEDS ORDERED: POTASSIUM CHLORIDE TABS 20 MEQ TABLET.ER (FP) PO ONE (23:43)
[2018-05-01] MEDS ORDERED: DEXTROSE 5%-0.45% SALINE 1,000 ML IV SCH (23:45)
[2018-05-02 06:28] LABS: BASO % 0.5 % (0-2.0); EOS % 1.2 % (0-4.5); HEMATOCRIT 32.9 % (32.4-45.2); HEMOGLOBIN 11.2 GM/dL (10.7-15.3); MCHC 34.1 g/dl (32.0-36.0); MEAN CELL VOLUME 96.7 fl (80-96); MEAN PLT VOLUME 9.4 fl (7.5-11.1); NEUT % 45.3 % (42.8-82.8); PLATELET COUNT 169 K/MM3 (134-434); RDW 14.9 % (11.6-15.6); WHITE BLOOD COUNT 5.1 K/mm3 (4.0-10.0)
[2018-05-02] MEDS: LORazepam 1 MG TABLET PO SCH ×3 (06:34→21:28)
[2018-05-02] MEDS: FUROSEMIDE 20 MG TABLET (FP) PO SCH ×2 (06:34→14:12)
[2018-05-02 07:06] LABS: ALBUMIN 3.6 g/dl (3.4-5.0); ALK PHOS 93 U/L (45-117); ANION GAP 11 MMOL/L (8-16); BILIRUBIN,TOTAL 0.6 mg/dL (0.2-1); BLOOD UREA NITROGEN 11 mg/dL (7-18); CALCIUM 8.3 mg/dL (8.5-10.1); CHLORIDE 108 mmol/L (98-107); CO2 23 mmol/L (21-32); GLUCOSE,RANDOM 150 mg/dL (74-106); POTASSIUM 3.3 mmol/L (3.5-5.1); SGOT/AST 101 U/L (15-37); SGPT/ALT 33 U/L (13-61); SODIUM 142 mmol/L (136-145); TOT PROT 7.2 g/dl (6.4-8.2)
--- NOTE | 2018-05-02 08:44 | CON.CARD ---
Cardiology Consult (text) - Consultation Consultation Note: Cardiology Consult Dictated IMP: Atypical CP: possible panic attack. 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 Further CV reccs pending above.
[2018-05-02] MEDS ORDERED: POTASSIUM CHLORIDE TABS 20 MEQ TABLET.ER (FP) PO ONE (09:00)
--- NOTE | 2018-05-02 09:29 | CONS ---
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 She denies exertional chest pain but has been having chronic exertional shortness of breath for which an outpatient stress echo was planned in order to determine her transmitral gradient. She has developed mitral annular calcification over the years, leading to some degree of functional mitral stenosis which is in the process of being evaluated. She denies palpitations, PND, orthopnea, fevers, chills, or cough. PAST MEDICAL HISTORY: As above, hypertension, mitral valve fibroelastoma resection, chronic anemia, COPD, anxiety, depression, alcohol abuse, history of pancreatitis, previous history of head trauma with possible subdural after a fall. That occurred many years ago. ALLERGIES: None. CURRENT MEDICATIONS: Include albuterol nebulizer q.6 p.r.n., amlodipine 5 mg p.o. daily, aspirin 81 mg p.o. daily, D-5 half normal saline, ferrous sulfate 325 p.o. daily, folic acid 1 mg p.o. daily, furosemide 20 mg p.o. b.i.d., gabapentin 200 mg p.o. at bedtime, heparin 5000 units subcutaneous b.i.d., lorazepam 1 mg p.o. t.i.d., potassium supplementation, sertraline 50 mg p.o. daily, and thiamine 100 mg p.o. daily. FAMILY HISTORY: Noncontributory. SOCIAL HISTORY: Smokes 1/2 pack of cigarettes per day. Patient is an alcoholic, participating in AA and planning to enter detox in the upcoming weeks. PHYSICAL EXAMINATION: Vital Signs: She is afebrile, temperature 98.4. Pulse 76, blood pressure 148/90. O2 saturation is 98% on room air. HEENT: She is anicteric. Neck: There is no carotid bruit or JVD. Cardiovascular: The heart was regular with a soft systolic murmur audible at the apex. Chest: Clear. Abdomen: Soft, nontender. Extremities: No edema. DIAGNOSTIC DATA: Chest x-ray: No acute pathology. EKG: Sinus rhythm at 63 beats per minute, with premature ventricular complexes, LVH, cannot rule out old septal DC. When compared to the ECG January 09, fusion complex is now present. Nonspecific changes in the inferior leads. LABORATORY: White count 5, hemoglobin 11.2, platelets 169, sodium 142, potassium 3.3, being repleted. Creatinine 1.0. LFTs significant for an AST of 101, ALT of 33, CK and troponin are negative x2 sets. IMPRESSION: 1. Atypical chest pain, possible panic attack. 2. History of mitral valve fibroelastoma resection, functional mitral stenosis secondary to mitral annular calcification, moderate. 3. History of alcoholism. 4. History of hypertension. RECOMMENDATIONS: As her serial cardiac enzymes are negative, the plan for today will be an echocardiogram for assessment of LV function, rule out pericardial disease, and reassess the degree of mitral annular calcification. An exercise nuclear stress test will also be ordered for further risk stratification and to rule out ischemia. Further cardiovascular recommendations pending above diagnostic studies. Thank you for the consultation. RAMONE BROWN M.D. [id number]
[2018-05-02] MEDS ORDERED: FLU VACCINE QUAD 60 MCG/0.5 ML (MDV 18-19) IM ONE (10:00)
--- NOTE | 2018-05-02 11:38 | HP ---
Admitting History and Physical - Past Medical History [employer]: Yes: Seizure, Other (SDH) Cardiovascular: Yes: HTN, Hyperlipdemia Pulmonary: Yes: COPD Gastrointestinal: Yes: GERD, Pancreatitis ...LMP: 01/08/97 Heme/Onc: Yes: Anemia Psych: Yes: Addictions, Anxiety, Depression, Other (ETOH abuse) - Past Surgical History Past Surgical History: Yes: Valve Replacement - Smoking History Smoking history: Current every day smoker Have you smoked in the past 12 months: Yes Aproximately how many cigarettes per day: 6 - Alcohol/Substance Use Hx Alcohol Use: Yes - Social History ADL: Independent History of Recent Travel: No Home Medications - Allergies Allergies/Adverse Reactions: Allergies Allergy/AdvReac Type Severity Reaction Status Date / Time No Known Allergies Allergy Verified 05/04/18 10:14 - Home Medications Home Medications: Ambulatory Orders Ferrous Sulfate 325 mg PO DAILY 01/31/17 Gabapentin [Neurontin -] 200 mg PO HS PRN 07/24/17 Furosemide [Lasix -] 20 mg PO BID@0600,1400 #60 tablet 01/12/18 Sertraline HCl [Zoloft -] 50 mg PO DAILY #30 tablet 01/12/18 Amlodipine Besylate [Norvasc -] 5 mg PO DAILY 05/01/18 Aspirin [ASA -] 81 mg PO DAILY #30 tab.chew 05/03/18 Folic Acid - 1 mg PO DAILY #30 tablet 05/03/18 Potassium Chloride 20 meq PO DAILY #30 tablet.er 05/03/18 Thiamine HCl [Vitamin B1 -] 100 mg PO DAILY #30 tablet 05/03/18 Family Disease History - Family Disease History Family Disease History: Diabetes: Father (), Mother (), Brother (/RENAL ), Heart Disease: Father, Other: Father, Mother, Brother Physical Examination Vital Signs: Vital Signs Temperature 98.4 F 05/02/18 06:00 Pulse Rate 76 05/02/18 06:00 Respiratory Rate 20 05/02/18 06:00 Blood Pressure 148/90 05/02/18 06:00 O2 Sat by Pulse Oximetry (%) 98 05/02/18 03:44 Labs: CBC, BMP 05/02/18 05:30 05/02/18 05:30 Problem List - Problems (1) Chest pain Code(s): R07.9 - CHEST PAIN, UNSPECIFIED (2) HTN (hypertension) Code(s): I10 - ESSENTIAL (PRIMARY) HYPERTENSION (3) COPD (chronic obstructive pulmonary disease) Code(s): J44.9 - CHRONIC OBSTRUCTIVE PULMONARY DISEASE, UNSPECIFIED (4) Anemia Code(s): D64.9 - ANEMIA, UNSPECIFIED (5) HLD (hyperlipidemia) Code(s): E78.5 - HYPERLIPIDEMIA, UNSPECIFIED Qualifiers: Hyperlipidemia type: pure hypercholesterolemia Qualified Code(s): E78.00 - Pure hypercholesterolemia, unspecified; E78.0 - Pure hypercholesterolemia
--- NOTE | 2018-05-02 12:40 | ECHO ---
Name: KEESHA GTZ Exam:Adult Echocardiogram Study Date: 05/02/2018 09:31 AM Age: 57 yrs Reason For Study: Chest pain MV REPAIR Height: 65 in Weight: 105 lb BSA: 1.5 m2 MMode/2D Measurements & Calculations IVSd: 0.74 cm Ao root diam: 2.9 cm LVIDd: 4.3 cm LA dimension: 3.3 cm LVIDs: 2.7 cm LVPWd: 0.71 cm EDV(Teich): 83.0 ml TAPSE: 1.9 cm ESV(Teich): 27.4 ml RV S Warren: 8.8 cm/sec Doppler Measurements & Calculations MV V2 max: 199.8 cm/sec MV E max warren: 115.7 cm/sec MV max P.0 mmHg MV A max warren: 155.8 cm/sec MV V2 mean: 132.6 cm/sec MV E/A: 0.74 MV mean P.4 mmHg MV V2 VTI: 45.7 cm Ao V2 max: 122.2 cm/sec MV dec slope: 307.5 cm/sec2 Ao max P.0 mmHg LV V1 max P.9 mmHg MR max warren: 456.1 cm/sec LV V1 max: 98.4 cm/sec MR max P.2 mmHg TR max warren: 202.1 cm/sec Med Peak E' Warren: 3.3 cm/sec TR max P.4 mmHg Med E/e': 34.9 Lat Peak E' Warren: 3.5 cm/sec Lat E/e': 33.0 Procedure A two-dimensional transthoracic echocardiogram with color flow and Doppler was performed. Left Ventricle The left ventricular size, thickness and function are normal. The left ventricular ejection fraction is normal. E/A reversal consistent with but not diagnostic of poor LV compliance. Septal motion is consi stent with post-operative state. Regional wall motion abnormalities cannot be excluded due to limited visua lization. Right Ventricle The right ventricle is normal in size and function. Atria Normal left and right atrial size and function. Mitral Valve The mitral valve is not well visualized. MV s/ repair. There is moderate mitral stenosis. There is tr guillermina to mild mitral regurgitation. Tricuspid Valve There is mild tricuspid valve thickening. There is no tricuspid stenosis. There is moderate to severe tricuspid regurgitation. Right ventricular systolic pressure is normal. Aortic Valve The aortic valve is not well visualized. No hemodynamically significant valvular aortic stenosis. No aortic regurgitation is present. Pulmonic Valve The pulmonic valve is not well visualized. Great Vessels The aortic root is normal size. Pericardium/Pleura There is no pericardial effusion. Interpretation Summary The left ventricular size, thickness and function are normal Septal motion is consistent with post-operative state. Regional wall motion abnormalities cannot be excluded due to limited visualization. Right ventricular systolic pressure is normal. The aortic valve is not well visualized. No hemodynamically significant valvular aortic stenosis. The mitral valve is not well visualized. MV s/ repair There is moderate to severe tricuspid regurgitation. E/A reversal consistent with but not diagnostic of poor LV compliance There is moderate mitral stenosis. There is trace to mild mitral regurgitation. The left ventricular ejection fraction is normal. MD Doni Pickering 05/02/2018 12:39 PM
[2018-05-02] MEDS ORDERED: REGADENOSON 0.4 MG/5 ML PRE-FILLED SYRINGE IVPUSH ONE ×2 (13:00→13:30)
[2018-05-02] MEDS: ASPIRIN 81 MG CHEWABLE TABLETS PO SCH (14:04)
[2018-05-02] MEDS: THIAMINE HCL 100 MG TABLET (FP) PO SCH (14:05)
[2018-05-02] MEDS: HEPARIN NA (PORCINE) 5,000 UNITS/ML 1ML VIAL SQ SCH ×2 (14:05→21:28)
[2018-05-02] MEDS: FOLIC ACID 1 MG TABLET (FP) PO SCH (14:05)
[2018-05-02] MEDS: amLODIPine BESYLATE 5 MG TABLET (FP) PO SCH (14:05)
[2018-05-02] MEDS: SERTRALINE HCL 50 MG TABLET (FP) PO SCH (14:05)
[2018-05-02] MEDS: FERROUS SO4 325 MG TABLET (FP) PO SCH (14:05)
[2018-05-03 05:32] VITALS: TEMP 98
[2018-05-03] MEDS: LORazepam 1 MG TABLET PO SCH (06:00)
[2018-05-03] MEDS: FUROSEMIDE 20 MG TABLET (FP) PO SCH (06:00)
--- NOTE | 2018-05-03 08:50 | PN ---
Progress Note, Physician Chief Complaint: nuclear stress negative Echo: normal LV fxn with moderate MS All enzymes - Ambulating and feels "fine" - Current Medication List Current Medications: Active Medications Albuterol/Ipratropium (Duoneb -) 1 amp NEB Q6H PRN PRN Reason: SHORTNESS OF BREATH Amlodipine Besylate (Norvasc -) 5 mg PO DAILY [facility] Last Admin: 05/02/18 14:05 Dose: 5 mg Aspirin (Asa -) 81 mg PO DAILY [facility] Last Admin: 05/02/18 14:04 Dose: 81 mg Ferrous Sulfate (Feosol -) 325 mg PO DAILY [facility] Last Admin: 05/02/18 14:05 Dose: 325 mg Folic Acid (Folic Acid -) 1 mg PO DAILY [facility] Last Admin: 05/02/18 14:05 Dose: 1 mg Furosemide (Lasix -) 20 mg PO BID@0600,1400 [facility] Last Admin: 05/03/18 06:00 Dose: 20 mg Gabapentin (Neurontin -) 200 mg PO HS PRN PRN Reason: NEUROLOGICAL PAIN 1-5 Heparin Sodium (Porcine) (Heparin -) 5,000 unit SQ BID [facility] Last Admin: 05/02/18 21:28 Dose: 5,000 unit Dextrose/Sodium Chloride (D5-1/2ns -) 1,000 mls @ 75 mls/hr IV ASDIR [facility] Last Admin: 05/02/18 01:33 Dose: 75 mls/hr Lorazepam (Ativan -) 1 mg PO TID [facility] Last Admin: 05/03/18 06:00 Dose: 1 mg Sertraline HCl (Zoloft -) 50 mg PO DAILY [facility] Last Admin: 05/02/18 14:05 Dose: 50 mg Thiamine HCl (Vitamin B1 -) 100 mg PO DAILY [facility] Last Admin: 05/02/18 14:05 Dose: 100 mg - Objective Vital Signs: Vital Signs Temperature 98 F 05/03/18 05:31 Pulse Rate 88 05/03/18 05:31 Respiratory Rate 20 05/03/18 05:31 Blood Pressure 150/90 05/03/18 05:31 O2 Sat by Pulse Oximetry (%) 97 05/02/18 20:36 Constitutional: Yes: No Distress, Calm Cardiovascular: Yes: Regular Rate and Rhythm Respiratory: Yes: CTA Bilaterally Gastrointestinal: Yes: Soft Edema: No Neurological: Yes: Alert, Oriented ...Motor Strength: WNL Labs: CBC, BMP 05/02/18 05:30 05/02/18 05:30 Laboratory Tests 05/01/18 05/01/18 05/02/18 12:23 21:30 05:30 WBC 5.1 Hgb 11.2 Hct 32.9 Plt Count 169 Sodium Potassium Creatinine Troponin I < 0.02 < 0.02 05/02/18 05/02/18 05:30 20:30 WBC Hgb Hct Plt Count Sodium 142 Potassium 3.3 L Creatinine 1.0 Troponin I < 0.02 - ....Imaging EKG: Image Reviewed Assessment/Plan IMP: Atypical CP: possible panic attack. Hx MV fibroelastoma resection, functional mitral stenosis secondary to Mitral annular calcification Hx ETOH abuse REC: Echo with normal LV fx, negative serial cardiac enzymes. Negative stress test. Sx resolved. D/C home: patient checking into rehab today.
[2018-05-03] MEDS: FERROUS SO4 325 MG TABLET (FP) PO SCH (09:48)
[2018-05-03] MEDS: HEPARIN NA (PORCINE) 5,000 UNITS/ML 1ML VIAL SQ SCH (09:48)
[2018-05-03] MEDS: SERTRALINE HCL 50 MG TABLET (FP) PO SCH (09:48)
[2018-05-03] MEDS: amLODIPine BESYLATE 5 MG TABLET (FP) PO SCH (09:48)
[2018-05-03] MEDS: FOLIC ACID 1 MG TABLET (FP) PO SCH (09:48)
[2018-05-03] MEDS: ASPIRIN 81 MG CHEWABLE TABLETS PO SCH (09:48)
[2018-05-03] MEDS: THIAMINE HCL 100 MG TABLET (FP) PO SCH (09:48)
[2018-05-03 09:56] LABS: ANION GAP 13 MMOL/L (8-16); BLOOD UREA NITROGEN 10 mg/dL (7-18); CALCIUM 8.9 mg/dL (8.5-10.1); CHLORIDE 104 mmol/L (98-107); CO2 24 mmol/L (21-32); CREATININE 0.8 mg/dL (0.55-1.3); GLUCOSE,RANDOM 125 mg/dL (74-106); POTASSIUM 3.5 mmol/L (3.5-5.1); SODIUM 141 mmol/L (136-145)
[2018-05-03 10:39] VITALS: BP 150/94; PULSE 94
[2018-05-03] MEDS ORDERED: POTASSIUM CHLORIDE TABS 20 MEQ TABLET.ER (FP) PO ONE (11:30)
--- NOTE | 2018-05-21 17:20 | DS ---
Physical Examination Vital Signs: Vital Signs Temperature 98 F 05/03/18 10:37 Pulse Rate 94 H 05/03/18 10:37 Respiratory Rate 20 05/03/18 10:37 Blood Pressure 150/94 05/03/18 10:37 O2 Sat by Pulse Oximetry (%) 97 05/03/18 09:00 Labs: CBC, BMP 05/02/18 05:30 05/03/18 09:30 Discharge Summary Reason For Visit: CHEST PAIN Condition: Good - Instructions Diet, Activity, Other Instructions: Transfer to [facility] rehab [address] Kenneth Alvarez Referrals: Kenneth Alvarez MD [Primary Care Provider] - Disposition: TRANSFER ACUTE CARE/OTHER HOSP - Home Medications Comprehensive Discharge Medication List: Ambulatory Orders Ferrous Sulfate 325 mg PO DAILY 01/31/17 Gabapentin [Neurontin -] 200 mg PO HS PRN 07/24/17 Furosemide [Lasix -] 20 mg PO BID@0600,1400 #60 tablet 01/12/18 Sertraline HCl [Zoloft -] 50 mg PO DAILY #30 tablet 01/12/18 Amlodipine Besylate [Norvasc -] 5 mg PO DAILY 05/01/18 Aspirin [ASA -] 81 mg PO DAILY #30 tab.chew 05/03/18 Folic Acid - 1 mg PO DAILY #30 tablet 05/03/18 Potassium Chloride 20 meq PO DAILY #30 tablet.er 05/03/18 Thiamine HCl [Vitamin B1 -] 100 mg PO DAILY #30 tablet 05/03/18
== END 2018-05-03 13:08 | disposition short-term general hospital (02) | DRG 756 ==
LOC: JER 12:14 → JERBED 13:53 → J4W 22:01 → OBSVTOIN 23:39
PROVIDERS: ADMIT Internal Medicine; ATTEND Internal Medicine
DX: F41.0 Panic disorder [episodic paroxysmal anxiety] (principal); R07.89 Other chest pain; R56.9 Unspecified convulsions; I10 Essential (primary) hypertension; E78.5 Hyperlipidemia, unspecified; J44.9 Chronic obstructive pulmonary disease, unspecified; K21.9 Gastro-esophageal reflux disease without esophagitis; D64.9 Anemia, unspecified; F41.8 Other specified anxiety disorders; F17.210 Nicotine dependence, cigarettes, uncomplicated; I25.10 Atherosclerotic heart disease of native coronary artery without angina pectoris; R25.1 Tremor, unspecified; F10.230 Alcohol dependence with withdrawal, uncomplicated; Z95.2 Presence of prosthetic heart valve; Z72.0 Tobacco use
CPT/HCPCS: 36415; 71045-TC-FY; 78452-TC; 80048; 80053; 81003; 82550; 83690; 84484; 85025; 90688; 93005; 93010; 93017; 93306-TC; 99285-25; A9502; G0008; G0378; J1644; J7030

== ENCOUNTER 2018-05-04 08:33 | Inpatient (IN) | payer OTHER ==
--- NOTE | 2018-05-04 09:55 | HP ---
CIWA Score Nausea/Vomitin Muscle Tremors: 2 Anxiety: 2 Agitation: 2 Paroxysmal Sweats: 1-Minimal Palms Moist Orientation: 0-Oriented Tacttile Disturbances: 1-Very Mild Itch/Numbness Auditory Disturbances: 1-Very Mild Visual Disturbances: 0-None Headache: 2-Mild CIWA-Ar Total Score: 13 - Admission Criteria [facility]ASAS Guidelines: Admission for Medically Managed Detox: Requires at least one of the followin. CIWA greater than 12 2. Seizures within the past 24 hours 3. Delirium tremens within the past 24 hours 4. Hallucinations within the past 24 hours 5. Acute intervention needed for co occurring medical disorder 6. Acute intervention needed for co occurring psychiatric disorder 7. Severe withdrawal that cannot be handled at a lower level of care (continued vomiting, continued diarrhea, abnormal vital signs) requiring intravenous medication and/or fluids 8. Patient presents the following: CIWA greater than 12, Seizures, delirium tremens or hallucinations in the past 12 hours Admission Criteria Met: Admission criteria met Admission ROS S - HPI Chief Complaint: i need help to stop drinking alcohol Allergies/Adverse Reactions: Allergies Allergy/AdvReac Type Severity Reaction Status Date / Time No Known Allergies Allergy Verified 05/04/18 10:14 History of Present Illness: this 57 years old female with alcohol dependence,extensive history of drinking since the age of [age] years old, multiple admissions in detox,but keep relapsing seizure last 05/01/18 history of pancreatitis head injury on right subdural hematoma on 04/14/[address] [facility] 05/01/18 to 05/03/18 no significant period of sobriety attending out patient program in [facility] but failed Exam Limitations: No Limitations - Ebola screening Have you traveled outside of the country in the last 21 days: No Have you had contact with anyone from an Ebola affected area: No - Review of Systems Constitutional: Loss of Appetite, Malaise, Night Sweats, Changes in sleep, Weakness EENT: reports: Nose Congestion, Other (s/p craniotomy right for subdural hematoma in) Respiratory: reports: No Symptoms reported Cardiac: reports: No Symptoms Reported GI: reports: Nausea, Poor Appetite, Abdominal cramping : reports: No Symptoms Reported Musculoskeletal: reports: Back Pain, Muscle Pain Integumentary: reports: Dryness Neuro: reports: Headache, Tremors Endocrine: reports: No Symptoms Reported Hematology: reports: No Symptoms Reported Psychiatric: reports: Judgement Intact, Mood/Affect Appropiate, Orientated x3 Patient History - Patient Medical History Hx Anemia: No Hx Asthma: No Hx Chronic Obstructive Pulmonary Disease (COPD): No Hx Cancer: No Hx Cardiac Disorders: Yes (MITRAL VALVE [id number]) Hx Congestive Heart Failure: No Hx Hypertension: Yes Hx Hypercholesterolemia: No Hx Pacemaker: No HX Cerebrovascular Accident: No Hx Seizures: Yes (RELATED TO BRAIN [id number]) Hx Dementia: No Hx Diabetes: No Hx Gastrointestinal Disorders: No Hx Liver Disease: No Hx Genitourinary Disorders: No Hx Sexually Transmitted Disorders: No Hx Renal Disease (ESRD): No Hx Thyroid Disease: No Hx Human Immunodeficiency Virus (HIV): No (last 2016 negative) Hx Hepatitis C: No Hx Depression: Yes (on med) Hx Suicide Attempt: No Hx Bipolar Disorder: No Hx Schizophrenia: No Other Medical History: no suicidal,no homicidal - Patient Surgical History Past Surgical History: Yes Hx Neurologic Surgery: No (BLEED S/P FALL) Hx Cataract Extraction: No Hx Cardiac Surgery: Yes (01/2012 annuloplasty ring, cabg) Hx Lung Surgery: No Hx Breast Surgery: No Hx Breast Biopsy: No Hx Abdominal Surgery: No Hx Appendectomy: No Hx Cholecystectomy: No Hx Genitourinary Surgery: Yes (left ovary resection in s) Hx Section: No Hx Orthopedic Surgery: No Hx Hysterectomy: Yes (2011) Anesthesia Reaction: No - PPD History Previous Implant?: Yes Documented Results: Negative w/proof [facility] No Date: 01/11/18 Results: 0MM PPD to be Administered?: No - Reproductive History Patient is a Female of Child Bearing Age (11 -55 yrs old): No Last Menstrual Period: 01/08/97 Patient : No - Smoking Cessation Smoking history: Current every day smoker Have you smoked in the past 12 months: Yes Aproximately how many cigarettes per day: 6 Cigars Per Day: 0 Hx Chewing Tobacco Use: No Initiated information on smoking cessation: Yes 'Breaking Loose' booklet given: 05/04/18 - Substance & Tx. History Hx Alcohol Use: Yes Hx Substance Use: Yes Substance Use Type: Alcohol Hx Substance Use Treatment: Yes ([facility] 01/09/18 to 01/23/18 rehab) - Substances Abused Alcohol Route: Oral Frequency: Daily Amount used: 2pints of whisky Age of first use: 17 Date of Last Use: 05/04/18 Family Disease History - Family Disease History Family Disease History: Diabetes: Father (), Mother (), Brother (/RENAL ), Heart Disease: Father, Other: Father, Mother, Brother Admission Physical Exam [facility] - Vital Signs Vital Signs: Vital Signs Temperature 96.7 F L 05/04/18 09:42 Pulse Rate 76 05/04/18 09:42 Respiratory Rate 18 05/04/18 09:42 Blood Pressure 110/82 05/04/18 09:42 O2 Sat by Pulse Oximetry (%) - Physical General Appearance: Yes: Intoxicated, Tremorous, Irritable, Sweating, Anxious HEENTM: Yes: Normal ENT Inspection, FABIAN, Pharynx Normal, Other (s/p craniotomy right post head injury) Respiratory: Yes: Lungs Clear, Normal Breath Sounds, No Respiratory Distress Neck: Yes: Within Normal Limits, Supple, Trachea in good position Breast: Yes: Breast Exam Deferred Cardiology: Yes: Within Normal Limits, Regular Rhythm, Regular Rate, S1, S2 Abdominal: Yes: Within Normal Limits, Normal Bowel Sounds, Non Tender, Soft, Surgical Scar Genitourinary: Yes: Within Normal Limits Back: Yes: Muscle Spasm Extremities: Yes: Within Normal Limits, Normal Range of Motion, Tremors 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 NML intact, Alert, Motor Strength 5/5 Integumentary: Yes: Dry Lymphatic: Yes: Within Normal Limits - Diagnostic (1) Alcohol dependence with uncomplicated withdrawal Current Visit: Yes Status: Acute (2) Alcohol dependence with uncomplicated intoxication Current Visit: Yes Status: Acute (3) Acute alcoholic pancreatitis Current Visit: No Status: Acute Qualifiers: Acute pancreatitis complication: unspecified Qualified Code(s): K85.20 - Alcohol induced acute pancreatitis without necrosis or infection (4) History of craniotomy Current Visit: No Status: Acute (5) Pancreatitis Current Visit: No Status: Acute Qualifiers: Chronicity: acute Pancreatitis type: unspecified pancreatitis type Acute pancreatitis complication: unspecified Qualified Code(s): K85.90 - Acute pancreatitis without necrosis or infection, unspecified (6) History of mitral valve repair Current Visit: No Status: Resolved (7) HLD (hyperlipidemia) Current Visit: No Status: Acute Qualifiers: Hyperlipidemia type: pure hypercholesterolemia Qualified Code(s): E78.00 - Pure hypercholesterolemia, unspecified; E78.0 - Pure hypercholesterolemia (8) Tremor Current Visit: No Status: Acute (9) Weight loss Current Visit: No Status: Acute Cleared for Admission [facility] - Detox or Rehab S Level of Care: Medically Managed Detox Regimen/Protocol: Librium [facility] Breath Alcohol Content Breath Alcohol Content: 0
[2018-05-04 09:57] VITALS: BMI 16.8
[2018-05-04] MEDS ORDERED: ACETAMINOPHEN 325 MG TABLET (FP) PO PRN (10:15)
[2018-05-04] MEDS ORDERED: IBUPROFEN 400 MG TABLET (FP) PO PRN (10:15)
[2018-05-04] MEDS ORDERED: MAG HYDROX/AL HYDROX/SIMETH 30 ML UNIT-DOSE CUP PO PRN (10:15)
[2018-05-04] MEDS ORDERED: guaiFENesin/D-METHORPHAN HB 10 ML UNIT-DOSE CUPS PO PRN (10:15)
[2018-05-04] MEDS ORDERED: P-EPHED 60MG/TRIPROLIDI 2.5MG TABLET PO PRN (10:15)
[2018-05-04] MEDS ORDERED: hydrOXYzine PAMOATE 25 MG CAPSULE (FP) PO PRN (10:15)
[2018-05-04] MEDS ORDERED: MAGNESIUM HYDROX 2400MG/30ML ORAL SUSPENSION 30 ML CUP PO PRN (10:15)
[2018-05-04] MEDS ORDERED: chlordiazePOXIDE HCL 25 MG CAPSULE PO PRN (10:15)
[2018-05-04] MEDS ORDERED: LOPERAMIDE HCL 2 MG CAPSULE PO PRN (10:15)
[2018-05-04] MEDS ORDERED: MENTHOL/PHENOL 1 EACH UD MM PRN (10:15)
[2018-05-04] MEDS ORDERED: MAGNESIUM CITRATE 300 ML BOTTLE PO PRN (10:15)
[2018-05-04] MEDS: FUROSEMIDE 20 MG TABLET (FP) PO SCH (14:23)
[2018-05-04] MEDS: chlordiazePOXIDE HCL 25 MG CAPSULE PO SCH ×3 (14:23→22:52)
[2018-05-04] MEDS: amLODIPine BESYLATE 5 MG TABLET (FP) PO SCH (14:23)
[2018-05-04] MEDS: NICOTINE 21 MG/24 HOURS TOPICAL PATCH TD SCH (14:26)
[2018-05-04 16:31] LABS: URINE APPEARANCE TURBID; URINE BILIRUBIN NEGATIVE (<2.0 mg/dL); URINE COLOR DKYELLOW; URINE GLUCOSE (UA) NEGATIVE (NEGATIVE); URINE KETONE NEGATIVE (NEGATIVE); URINE LEUK ESTERASE 3+ (NEGATIVE); URINE NITRITE NEGATIVE (NEGATIVE); URINE PROTEIN NEGATIVE (NEGATIVE)
[2018-05-04 16:53] LABS: EPI CELLS MANY /HPF (FEW); URINE BACTERIA RARE /hpf (NONE SEEN); URINE HYALINE CAST 2 /lpf; URINE MUCUS RARE
--- NOTE | 2018-05-04 17:28 | CONSULT ---
[facility] Psychiatric Consult - Data Date of interview: 05/04/18 Admission source: [facility] Identifying data: This is one of multiple psychiatric admissions to [facility] for this 57 y/o AA female seeking detoxification treatment, on , for alcohol dependence. Patient is single, a mother of three, domiciled, disabled and supported on [facility] benefits. Substance Abuse History: Confirmed by the patient in this interview. Details in [facility] report : Smoking history: Current every day smoker. Have you smoked in the past 12 months: Yes. Aproximately how many cigarettes per day: 6. Cigars Per Day: 0. Hx Chewing Tobacco Use: No. Initiated information on smoking cessation: Yes. 'Breaking Loose' booklet given: 05/04/18. - Substance & Tx. History. Hx Alcohol Use: Yes. Hx Substance Use: Yes. Substance Use Type : Alcohol. Hx Substance Use Treatment: Yes ([facility] 01/09/18 to 01/23/18 rehab). - Substances Abused. Alcohol. Route: Oral. Frequency: Daily. Amount used : 2pints of whisky. Age of first use: 17. Date of Last Use: 05/04/18 Medical History: Neuropathy, history of mitral valve repair (annuloplasty), neurosurgery for brain aneurysm, seizure disorder, CABG and left ovariectomy. Psychiatric History: Patient denies history of psychiatric hospitalizations. Ms Carter is known to the [facility] where she was under the care of Dr Shaikh. Used to be on zoloft (dose not recalled). Diagnosed with MDD and Anxiety Disorder. Currently, the patient sees a psychiatrist at an [facility] clinic in [facility] (name not recalled). Patient denies history of suicide attempts. Physical/Sexual Abuse/Trauma History: Patient denies. Additional Comment: Toxicology not available. Mental Status Exam - Mental Status Exam Alert and Oriented to: Time, Place, Person Cognitive Function: Good Patient Appearance: Well Groomed (thin habitus) Mood: Apprehensive, Hopeful Affect: Appropriate, Normal Range Patient Behavior: Fatigued, Appropriate, Cooperative Speech Pattern: Clear, Appropriate Voice Loudness: Normal Thought Process: Intact, Goal Oriented Thought Disorder: Not Present Hallucinations: Denies Suicidal Ideation: Denies Homicidal Ideation: Denies Insight/Judgement: Poor Sleep: Fair Appetite: Good Muscle strength/Tone: Normal Gait/Station: Normal Psychiatric Findings - Problem List ([place] 1, 2,3) (1) Alcohol dependence with uncomplicated withdrawal Current Visit: Yes Status: Acute (2) Nicotine dependence Current Visit: Yes Status: Acute Qualifiers: Nicotine product type: cigarettes Substance use status: uncomplicated Qualified Code(s): F17.210 - Nicotine dependence, cigarettes, uncomplicated (3) Alcohol-induced mood disorder Current Visit: Yes Status: Suspected - Initial Treatment Plan Initial Treatment Plan: Psychoeducation. Sleep hygiene. Detoxification in progress. Group, supportive psychotherapy. AA meetings recommended. Patient is informed of resources available in the community for relapse prevention ( naltrexone, counseling, 12 step fellowship). Observation.
[2018-05-04] MEDS ORDERED: MELATONIN 5 MG TABLETS PO PRN (22:00)
[2018-05-04] MEDS: THIAMINE HCL 100 MG TABLET (FP) PO SCH (23:24)
[2018-05-05] MEDS: FUROSEMIDE 20 MG TABLET (FP) PO SCH ×2 (05:43→14:11)
[2018-05-05] MEDS: chlordiazePOXIDE HCL 25 MG CAPSULE PO SCH ×4 (05:44→22:30)
[2018-05-05] MEDS: amLODIPine BESYLATE 5 MG TABLET (FP) PO SCH (10:38)
[2018-05-05] MEDS: FERROUS SO4 325 MG TABLET (FP) PO SCH (10:38)
[2018-05-05] MEDS: PRENATAL VITAMINS W/ FOLIC ACID TABLET (FP) PO SCH (10:39)
[2018-05-05] MEDS: NICOTINE 21 MG/24 HOURS TOPICAL PATCH TD SCH (10:39)
[2018-05-05] MEDS: ASPIRIN 81 MG CHEWABLE TABLETS PO SCH (10:39)
[2018-05-05] MEDS: POTASSIUM CHLORIDE TABS 20 MEQ TABLET.ER (FP) PO SCH (10:39)
[2018-05-05 11:21] LABS: ALK PHOS 92 U/L (45-117); ANION GAP 8 MMOL/L (8-16); BILIRUBIN,TOTAL 0.9 mg/dL (0.2-1); BLOOD UREA NITROGEN 20 mg/dL (7-18); CALCIUM 8.8 mg/dL (8.5-10.1); CHLORIDE 108 mmol/L (98-107); CO2 24 mmol/L (21-32); CREATININE 1.1 mg/dL (0.55-1.3); GLUCOSE,RANDOM 90 mg/dL (74-106); POTASSIUM 4.2 mmol/L (3.5-5.1); SGOT/AST 41 U/L (15-37); SGPT/ALT 35 U/L (13-61); SODIUM 141 mmol/L (136-145); TOT PROT 8.2 g/dl (6.4-8.2)
[2018-05-05 11:25] LABS: HEMATOCRIT 34.3 % (32.4-45.2); HEMOGLOBIN 11.3 GM/dL (10.7-15.3); MCH 32.9 pg (25.7-33.7); MCHC 32.8 g/dl (32.0-36.0); MEAN CELL VOLUME 100.3 fl (80-96); MEAN PLT VOLUME 10.7 fl (7.5-11.1); PLATELET COUNT 170 K/MM3 (134-434); RBC 3.42 M/mm3 (3.60-5.2); RDW 15.5 % (11.6-15.6); WHITE BLOOD COUNT 5.5 K/mm3 (4.0-10.0)
--- NOTE | 2018-05-05 18:05 | PN ---
S CIWA - CIWA Score Nausea/Vomitin-No Nausea/No Vomiting Muscle Tremors: 2 Anxiety: 2 Agitation: 2 Paroxysmal Sweats: 2 Orientation: 0-Oriented Tacttile Disturbances: 0-None Auditory Disturbances: 0-None Visual Disturbances: 0-None Headache: 0-None Present CIWA-Ar Total Score: 8 [facility] Progress Note (SOAP) Subjective: PATIENT C/O SHAKES, SWEATING, ANXIETY. Objective: 05/05/18 18:04 Laboratory Tests 05/04/18 05/05/18 05/05/18 15:30 05:40 05:40 WBC 5.5 RBC 3.42 L Hgb 11.3 Hct 34.3 MCV 100.3 H MCH 32.9 MCHC 32.8 RDW 15.5 Plt Count 170 MPV 10.7 D Sodium 141 Potassium 4.2 Chloride 108 H Carbon Dioxide 24 Anion Gap 8 BUN 20 H Creatinine 1.1 Creat Clearance w eGFR 51.38 Random Glucose 90 Calcium 8.8 Total Bilirubin 0.9 AST 41 H ALT 35 Alkaline Phosphatase 92 Total Protein 8.2 Albumin 4.0 Urine Color Dkyellow Urine Appearance Turbid Urine pH 6.0 Ur Specific [place] 1.010 Urine Protein Negative Urine Glucose (UA) Negative Urine Ketones Negative Urine Blood 2+ H Urine Nitrite Negative Urine Bilirubin Negative Urine Urobilinogen 2.0 H Ur Leukocyte Esterase 3+ H Urine WBC (Auto) 97 Urine RBC (Auto) 3 Ur Epithelial Cells Many Urine Bacteria Rare Hyaline Casts 2 Urine Mucus Rare RPR Titer 05/05/18 05:40 WBC RBC Hgb Hct MCV MCH MCHC RDW Plt Count MPV Sodium Potassium Chloride Carbon Dioxide Anion Gap BUN Creatinine Creat Clearance w eGFR Random Glucose Calcium Total Bilirubin AST ALT Alkaline Phosphatase Total Protein Albumin Urine Color Urine Appearance Urine pH Ur Specific [place] Urine Protein Urine Glucose (UA) Urine Ketones Urine Blood Urine Nitrite Urine Bilirubin Urine Urobilinogen Ur Leukocyte Esterase Urine WBC (Auto) Urine RBC (Auto) Ur Epithelial Cells Urine Bacteria Hyaline Casts Urine Mucus RPR Titer Nonreactive PE: ALERT AND ORIENTED X 3 CAR SIS2 RESP CTA BL EXT FULL ROM, +TREMORS SKIN WARM, +FACIAL MOISTURE Assessment: 05/05/18 18:05 WITHDRAWAL SX Plan: CONTINUE DETOX ENCOURAGE ORAL FLUIDS REPEAT UA CONTINUE TO MONITOR CLINICALLY
[2018-05-05] MEDS: THIAMINE HCL 100 MG TABLET (FP) PO SCH (22:30)
[2018-05-05] MEDS: GABAPENTIN 100 MG CAPSULE (FP) PO PRN (22:30)
[2018-05-06] MEDS: chlordiazePOXIDE HCL 25 MG CAPSULE PO SCH (06:00)
[2018-05-06] MEDS: FUROSEMIDE 20 MG TABLET (FP) PO SCH ×2 (06:01→14:45)
[2018-05-06] MEDS: POTASSIUM CHLORIDE TABS 20 MEQ TABLET.ER (FP) PO SCH (10:41)
[2018-05-06] MEDS: PRENATAL VITAMINS W/ FOLIC ACID TABLET (FP) PO SCH (10:41)
[2018-05-06] MEDS: chlordiazePOXIDE 5 MG CAPSULE PO SCH ×3 (10:41→22:36)
[2018-05-06] MEDS: NICOTINE 21 MG/24 HOURS TOPICAL PATCH TD SCH (10:41)
[2018-05-06] MEDS: amLODIPine BESYLATE 5 MG TABLET (FP) PO SCH (10:41)
[2018-05-06] MEDS: FERROUS SO4 325 MG TABLET (FP) PO SCH (10:41)
[2018-05-06] MEDS: ASPIRIN 81 MG CHEWABLE TABLETS PO SCH (10:41)
--- NOTE | 2018-05-06 15:37 | PN ---
S CIWA - CIWA Score Nausea/Vomitin-Mild Nausea/No Vomiting Muscle Tremors: 3 Anxiety: 2 Agitation: 2 Paroxysmal Sweats: 1-Minimal Palms Moist Orientation: 0-Oriented Tacttile Disturbances: 0-None Auditory Disturbances: 0-None Visual Disturbances: 0-None Headache: 0-None Present CIWA-Ar Total Score: 9 [facility] Progress Note (SOAP) Subjective: sweat tremor restlessness Objective: 05/06/18 15:33 Vital Signs Temperature 97.9 F 05/06/18 14:24 Pulse Rate 103 H 05/06/18 14:24 Respiratory Rate 18 05/06/18 14:24 Blood Pressure 125/75 05/06/18 14:24 O2 Sat by Pulse Oximetry (%) Laboratory Last Values WBC 5.5 K/mm3 (4.0-10.0) 05/05/18 05:40 RBC 3.42 M/mm3 (3.60-5.2) L 05/05/18 05:40 Hgb 11.3 GM/dL (10.7-15.3) 05/05/18 05:40 Hct 34.3 % (32.4-45.2) 05/05/18 05:40 MCV 100.3 fl (80-96) H 05/05/18 05:40 MCH 32.9 pg (25.7-33.7) 05/05/18 05:40 MCHC 32.8 g/dl (32.0-36.0) 05/05/18 05:40 RDW 15.5 % (11.6-15.6) 05/05/18 05:40 Plt Count 170 K/MM3 (134-434) 05/05/18 05:40 MPV 10.7 fl (7.5-11.1) D 05/05/18 05:40 Sodium 141 mmol/L (136-145) 05/05/18 05:40 Potassium 4.2 mmol/L (3.5-5.1) 05/05/18 05:40 Chloride 108 mmol/L (98-107) H 05/05/18 05:40 Carbon Dioxide 24 mmol/L (21-32) 05/05/18 05:40 Anion Gap 8 MMOL/L (8-16) 05/05/18 05:40 BUN 20 mg/dL (7-18) H 05/05/18 05:40 Creatinine 1.1 mg/dL (0.55-1.3) 05/05/18 05:40 Creat Clearance w eGFR 51.38 (>60) 05/05/18 05:40 Random Glucose 90 mg/dL (74-106) 05/05/18 05:40 Calcium 8.8 mg/dL (8.5-10.1) 05/05/18 05:40 Total Bilirubin 0.9 mg/dL (0.2-1) 05/05/18 05:40 AST 41 U/L (15-37) H 05/05/18 05:40 ALT 35 U/L (13-61) 05/05/18 05:40 Alkaline Phosphatase 92 U/L (45-117) 05/05/18 05:40 Total Protein 8.2 g/dl (6.4-8.2) 05/05/18 05:40 Albumin 4.0 g/dl (3.4-5.0) 05/05/18 05:40 Urine Color Dkyellow 05/04/18 15:30 Urine Appearance Turbid 05/04/18 15:30 Urine pH 6.0 (5.0-8.0) 05/04/18 15:30 Ur Specific [place] 1.010 (1.010-1.035) 05/04/18 15:30 Urine Protein Negative (NEGATIVE) 05/04/18 15:30 Urine Glucose (UA) Negative (NEGATIVE) 05/04/18 15:30 Urine Ketones Negative (NEGATIVE) 05/04/18 15:30 Urine Blood 2+ (NEGATIVE) H 05/04/18 15:30 Urine Nitrite Negative (NEGATIVE) 05/04/18 15:30 Urine Bilirubin Negative (<2.0 mg/dL) 05/04/18 15:30 Urine Urobilinogen 2.0 mg/dL (0.2-1.0) H 05/04/18 15:30 Ur Leukocyte Esterase 3+ (NEGATIVE) H 05/04/18 15:30 Urine WBC (Auto) 97 /hpf (3-5) 05/04/18 15:30 Urine RBC (Auto) 3 /hpf (0-3) 05/04/18 15:30 Ur Epithelial Cells Many /HPF (FEW) 05/04/18 15:30 Urine Bacteria Rare /hpf (NONE SEEN) 05/04/18 15:30 Hyaline Casts 2 /lpf 05/04/18 15:30 Urine Mucus Rare 05/04/18 15:30 RPR Titer Nonreactive (NONREACTIVE) 05/05/18 05:40 lab noted uti 05/06/18 15:34 Assessment: 05/06/18 15:36 withdrawal sx uti Plan: continue detox bactrim ds bid
[2018-05-06] MEDS: GABAPENTIN 100 MG CAPSULE (FP) PO PRN (22:36)
[2018-05-06] MEDS: SULFAMETHOXAZOLE/TRIMETHOPRIM 800MG/160MG D.S. TABLET PO SCH (22:36)
[2018-05-06] MEDS: THIAMINE HCL 100 MG TABLET (FP) PO SCH (22:36)
[2018-05-07] MEDS: chlordiazePOXIDE 5 MG CAPSULE PO SCH (05:43)
[2018-05-07] MEDS: FUROSEMIDE 20 MG TABLET (FP) PO SCH ×2 (05:43→13:19)
[2018-05-07] MEDS: FERROUS SO4 325 MG TABLET (FP) PO SCH (10:37)
[2018-05-07] MEDS: SULFAMETHOXAZOLE/TRIMETHOPRIM 800MG/160MG D.S. TABLET PO SCH ×2 (10:47→22:23)
[2018-05-07] MEDS: chlordiazePOXIDE HCL 10 MG CAPSULE PO SCH ×3 (10:47→22:23)
[2018-05-07] MEDS: amLODIPine BESYLATE 5 MG TABLET (FP) PO SCH (10:47)
[2018-05-07] MEDS: PRENATAL VITAMINS W/ FOLIC ACID TABLET (FP) PO SCH (10:47)
[2018-05-07] MEDS: ASPIRIN 81 MG CHEWABLE TABLETS PO SCH (10:47)
[2018-05-07] MEDS: NICOTINE 21 MG/24 HOURS TOPICAL PATCH TD SCH (10:49)
--- NOTE | 2018-05-07 11:01 | PN ---
[facility] Progress Note (SOAP) Subjective: sweats body aches Objective: 05/07/18 11:01 Vital Signs Temperature 97.3 F L 05/07/18 09:52 Pulse Rate 91 H 05/07/18 09:52 Respiratory Rate 18 05/07/18 09:52 Blood Pressure 116/79 05/07/18 09:52 O2 Sat by Pulse Oximetry (%) aaox3 ambulating no acute distress Assessment: 05/07/18 11:01 mild withdrawal sx Plan: continue detox increase fluids d/c in am
[2018-05-07 15:07] LABS: URINE APPEARANCE CLEAR; URINE BILIRUBIN NEGATIVE (<2.0 mg/dL); URINE COLOR STRAW; URINE GLUCOSE (UA) NEGATIVE (NEGATIVE); URINE KETONE NEGATIVE (NEGATIVE); URINE LEUK ESTERASE TRACE (NEGATIVE); URINE NITRITE NEGATIVE (NEGATIVE); URINE PROTEIN NEGATIVE (NEGATIVE); URINE UROBILINOGEN NEGATIVE mg/dL (0.2-1.0)
[2018-05-07 15:45] LABS: EPI CELLS RARE /HPF (FEW)
[2018-05-07 16:56] LABS: URINE MUCUS RARE
[2018-05-07] MEDS: THIAMINE HCL 100 MG TABLET (FP) PO SCH (22:21)
[2018-05-07 22:22] VITALS: PULSE 83
[2018-05-08] MEDS: FUROSEMIDE 20 MG TABLET (FP) PO SCH (06:08)
[2018-05-08] MEDS: chlordiazePOXIDE HCL 10 MG CAPSULE PO SCH (06:08)
[2018-05-08 06:57] VITALS: BP 132/84; TEMP 97
--- NOTE | 2018-05-08 09:20 | DS ---
[facility] Detox Discharge Summary Admission Date: 05/04/18 Discharge Date: 05/08/18 - History Present History: Alcohol Dependence - Physical Exam Results Vital Signs: Vital Signs Temperature 97 F L 05/08/18 06:56 Pulse Rate 83 05/08/18 06:56 Respiratory Rate 18 05/08/18 06:56 Blood Pressure 132/84 05/08/18 06:56 O2 Sat by Pulse Oximetry (%) - Treatment Hospital Course: Detox Protocol Followed, Detoxed Safely, Responded well, Discharged Condition Good, Rehab Referral Accepted - Medication Discharge Medications: Ambulatory Orders Ferrous Sulfate 325 mg PO DAILY 01/31/17 Gabapentin [Neurontin -] 200 mg PO HS PRN 07/24/17 Furosemide [Lasix -] 20 mg PO BID@0600,1400 #60 tablet 01/12/18 Sertraline HCl [Zoloft -] 50 mg PO DAILY #30 tablet 01/12/18 Amlodipine Besylate [Norvasc -] 5 mg PO DAILY 05/01/18 Aspirin [ASA -] 81 mg PO DAILY #30 tab.chew 05/03/18 Folic Acid - 1 mg PO DAILY #30 tablet 05/03/18 Potassium Chloride 20 meq PO DAILY #30 tablet.er 05/03/18 Thiamine HCl [Vitamin B1 -] 100 mg PO DAILY #30 tablet 05/03/18 - Diagnosis (1) Alcohol dependence with uncomplicated intoxication Current Visit: Yes Status: Chronic (2) Nicotine dependence Current Visit: Yes Status: Chronic Qualifiers: Nicotine product type: cigarettes Substance use status: uncomplicated Qualified Code(s): F17.210 - Nicotine dependence, cigarettes, uncomplicated (3) Alcohol-induced mood disorder Current Visit: Yes Status: Suspected (4) HLD (hyperlipidemia) Current Visit: Yes Status: Acute Qualifiers: Hyperlipidemia type: pure hypercholesterolemia Qualified Code(s): E78.00 - Pure hypercholesterolemia, unspecified; E78.0 - Pure hypercholesterolemia - AMA Did Patient Leave Against Medical Advice: No (going home)
== END 2018-05-08 09:17 | disposition home or self-care (01) | DRG 775 ==
LOC: YASAS 08:33 → Y6N 10:51
PROC: HZ2ZZZZ Detoxification Services for Substance Abuse Treatment (ICD-10-PCS; principal; 2018-05-04)
DX: F10.230 Alcohol dependence with withdrawal, uncomplicated (principal); F10.220 Alcohol dependence with intoxication, uncomplicated; F10.24 Alcohol dependence with alcohol-induced mood disorder; F17.210 Nicotine dependence, cigarettes, uncomplicated; E78.5 Hyperlipidemia, unspecified; N39.0 Urinary tract infection, site not specified; G40.909 Epilepsy, unspecified, not intractable, without status epilepticus; G62.9 Polyneuropathy, unspecified; K85.20 Alcohol induced acute pancreatitis without necrosis or infection; R25.1 Tremor, unspecified; Z98.890 Other specified postprocedural states; Z86.79 Personal history of other diseases of the circulatory system; Z95.1 Presence of aortocoronary bypass graft
CPT/HCPCS: 36415; 80053; 81003; 81015; 85027; 86593

== ENCOUNTER 2018-06-17 02:34 | Inpatient (IN) | payer OTHER ==
--- NOTE | 2018-06-17 02:54 | PDOC ---
Attending Attestation - Resident Resident Name: Taj Bhandari - ED Attending Attestation I have performed the following: I have examined & evaluated the patient, The case was reviewed & discussed with the resident, I agree w/resident's findings & plan - HPI HPI: 06/17/18 03:00 Pt comes with abdominal pain. - Physicial Exam PE: 06/17/18 03:00 Agree with resident exam. 06/17/18 03:34 Pt is cachectic. NSome epigastric pain and nausea. - Medical Decision Making 06/17/18 03:01 labs and hydration and UA. 06/17/18 04:05 CBC is normal. Pt feels nausea. States that she has been trying to stop alcohol intake, and states that whenever she tries to quit on her own, she ends up ill like this. 06/17/18 05:43 Pt has pancreatitis and hyponatremia and she will be admitted for hydration and she will be kept NPO. 06/17/18 05:44 Alc, ASA, APAP negative levels. 06/17/18 05:45 Pt has alcoholic hepatitis. 06/17/18 05:45 Amylase is 10K
[2018-06-17 02:55] VITALS: BMI 17.2
[2018-06-17] MEDS ORDERED: morphine CARPU-JECT 4 MG/1 ML DISP.SYRIN IVPUSH ONE (03:09)
[2018-06-17] MEDS ORDERED: LACTATED RINGERS SOLUTION 1000 ML INFUS.BAG IV ONE ×2 (03:09→04:48)
[2018-06-17] MEDS ORDERED: ONDANSETRON 4 MG/2 ML VIAL IVPUSH ONE (03:09)
[2018-06-17] MEDS ORDERED: FOLIC ACID INJECTION - 1 MG, THIAMINE HCL 100 MG, MULTIVIT INJECTION ADULT 10 ML in SOD... IVPB ONE (03:34)
[2018-06-17 03:44] LABS: BASO % 0.3 % (0-2.0); HEMATOCRIT 37.1 % (32.4-45.2); HEMOGLOBIN 12.9 GM/dL (10.7-15.3); LYMPH % 14.5 % (8-40); MCH 35.3 pg (25.7-33.7); MCHC 34.7 g/dl (32.0-36.0); MEAN CELL VOLUME 101.8 fl (80-96); MEAN PLT VOLUME 9.4 fl (7.5-11.1); MONO % 3.2 % (3.8-10.2); PLATELET COUNT 170 K/MM3 (134-434); RBC 3.65 M/mm3 (3.60-5.2); WHITE BLOOD COUNT 7.2 K/mm3 (4.0-10.0)
[2018-06-17] MEDS ORDERED: SODIUM CHLORIDE 0.9% 500 ML INFUS.BAG IV ONE (03:53)
[2018-06-17 03:55] LABS: INR 0.92 (0.83-1.09); PROTHROMBIN TIME (PATIENT) 10.8 SEC (9.7-13.0)
--- NOTE | 2018-06-17 03:57 | PDOC ---
History of Present Illness - General Chief Complaint: Pain Stated Complaint: ABDOMINAL PAIN/VOMITTING Time Seen by Provider: 06/17/18 02:48 History Source: Patient, Old Records Exam Limitations: No Limitations - History of Present Illness Initial Comments: HPI: 57 y/o female presenting to [facility] ER complaining of abdominal pain x2 days. Pain is localized to epigastric region and LUQ with radiation to left flank and back. Worse with leaning backward. Endorses vomiting, diarrhea, fever, chills, diaphoresis, and dry skin. Emesis described as nonbloody and nonbilious. Diarrhea described as nonbloody. Pt endorses a history of similar pain with prior episodes of acute pancreatitis. Pt has a h/o of chronic EtOH abuse. States she drank a pint of Vodka on Monday. Denies chest pain or shortness of breath. PCP: Social Hx: - EtOH: Chronic abuse - Tobacco: 10 cigarettes per day - Street drugs: Denies Medical Hx: - HTN - MVR - CAD s/p CABG - Anemia - COPD - Anxiety - Depression - Alcohol abuse - Pancreatitis Past History - Past Medical History Allergies/Adverse Reactions: Allergies Allergy/AdvReac Type Severity Reaction Status Date / Time No Known Allergies Allergy Verified 06/17/18 02:54 Home Medications: Ambulatory Orders Ferrous Sulfate 325 mg PO DAILY 01/31/17 Furosemide [Lasix -] 20 mg PO BID@0600,1400 #60 tablet 01/12/18 Amlodipine Besylate [Norvasc -] 5 mg PO DAILY 05/01/18 Aspirin [ASA -] 81 mg PO DAILY #30 tab.chew 05/03/18 Folic Acid - 1 mg PO DAILY #30 tablet 05/03/18 Potassium Chloride 20 meq PO DAILY #30 tablet.er 05/03/18 Thiamine HCl [Vitamin B1 -] 100 mg PO DAILY #30 tablet 05/03/18 Atorvastatin Ca [Lipitor] 40 mg PO HS 06/17/18 Anemia: No Asthma: No Cancer: No Cardiac Disorders: Yes (mitral valve repair) CVA: No COPD: No CHF: No DVT: No Dementia: No Diabetes: No GI Disorders: No Disorders: No HTN: Yes (on meds.) Hypercholesterolemia: No Kidney Stones: No Liver Disease: No Psychiatric Problems: Yes (panic attacks) Seizures: Yes (in 04/10) Thyroid Disease: No - Surgical History Abdominal Surgery: No Appendectomy: No Cardiac Surgery: Yes (mitral valve repair) Cholecystectomy: No Lung Surgery: No Neurologic Surgery: Yes (BLEED S/P FALL R crainotomy in 04/10) Orthopedic Surgery: No - Reproductive History PID: No - Immunization History Immunization Up to Date: Yes - Suicide/Smoking/Psychosocial Hx Smoking Status: Yes Smoking History: Current some day smoker Have you smoked in the past 12 months: Yes Number of Cigarettes Smoked Daily: 6 Cigars Per Day: 0 Information on smoking cessation initiated: No 'Breaking Loose' booklet given: 05/04/18 Hx Alcohol Use: Yes Drug/Substance Use Hx: Yes Substance Use Type: Alcohol Hx Substance Use Treatment: Yes Review of Systems - Review of Systems Able to Perform ROS?: Yes Comments:: In addition to that documented in the HPI above, the additional ROS was obtained : Constitutional: Endorses fevers and chills Eyes: Denies vision changes ENMT: Denies sore throat CV: Denies chest pain Resp: Denies SOB GI: Endorses vomiting and diarrhea : Denies painful urination MSK: Denies recent trauma Skin: Denies new rashes Neuro: Denies new numbness or tingling or weakness Endocrine: Denies polyuria Heme: Denies bleeding or bruising *Physical Exam - Vital Signs Last Vital Signs Temp Pulse Resp BP Pulse Ox 98.6 F 112 H 19 118/78 100 06/17/18 02:34 06/17/18 02:34 06/17/18 02:34 06/17/18 02:34 06/17/18 02:34 - Physical Exam Comments: Constitutional: Thin adult female in no acute distress but obvious discomfort. Found sitting hunched forward on hospital bed. Alert and oriented x4. Answered all questions appropriately and completely. Speech was non-labored, non- pressured. Head: Normocephalic. No obvious external signs of trauma. Eyes: Pupils 3mm and PERRL bilaterally. Sclerae white. EARS: Hearing grossly intact. NOSE: No nasal discharge. THROAT: Oral cavity and pharynx normal. No inflammation, swelling, exudate, or lesions. Teeth and gingiva in good general condition. Neck: Supple, trachea is midline. Cardiovascular: Tachycardic rate and regular rhythm. No murmur, rubs, clicks, or gallops. Peripheral pulses: Radial pulses full. Respiratory: Breathing unlabored. Equal chest rise and fall. Clear to auscultation bilaterally. No stridor, no wheezing, no rhonchi. Gastrointestinal: abdomen is tender in epigastric region and LUQ with withdrawal and guarding. Globally, abdomen is soft and non-distended. No pulsatile masses. No overlying skin lesions or obvious signs of trauma. Neuro: Alert and oriented. Moving all four extremities spontaneously. Skin: Warm, dry, and intact. No bruising, rashes, or other lesions. : No R or L CVA tenderness. Psych: Affect: tearful. Mood: appropriate. Moderate Sedation - Procedure Monitoring Vital Signs: Procedure Monitoring Vital Signs Temperature 98.6 F 06/17/18 02:34 Pulse Rate 112 H 06/17/18 02:34 Respiratory Rate 19 06/17/18 02:34 Blood Pressure 118/78 06/17/18 02:34 O2 Sat by Pulse Oximetry (%) 100 06/17/18 02:34 ED Treatment Course - LABORATORY CBC & Chemistry Diagram: 06/17/18 03:17 06/17/18 03:17 - ADDITIONAL ORDERS Additional order review: Laboratory Results 06/17/18 03:17 PT with INR 10.80 INR 0.92 06/17/18 03:17 RBC 3.65 MCV 101.8 H MCHC 34.7 RDW 14.0 MPV 9.4 D Neutrophils % 82.0 D Lymphocytes % 14.5 D Monocytes % 3.2 L Eosinophils % 0.0 D Basophils % 0.3 - RADIOLOGY Radiology Studies Ordered: Category Date Time Status ABDOMEN & PELVIS CT WITH CONTR [CT] Stat CT Scan 06/17/18 03:06 Ordered CHEST X-RAY PORTABLE* [RAD] Stat Radiology 06/17/18 03:08 Ordered Radiograph Interpretation: CT of Abdomen and Pelvis without contrast: Silverio Pride MD wrote on Jun 17, 2018 at 06:33 AM: Referring Physician: BISHOP LONGORIA Patient Name: KEESHA GTZ THIS IS A PRELIMINARY REPORT FROM [facility] DATE OF SERVICE: 2018-06-17 05:43:00 IMAGES: 355 EXAM: CT ABDOMEN \T\ PELVIS CT W/O CONTR HISTORY: Epigastric pain COMPARISON: None. FINDINGS: Abdomen Liver: Normal Spleen: Normal Pancreas: Pancreas appears edematous with haziness in the surrounding fat Gallbladder: Normal Stomach: There is mild thickening of the gastric antrum Small bowel: There is mild thickening of the duodenum Large bowel: There is mild thickening of the hepatic flexure and the right- sided colon Appendix: Normal Adrenals:Normal Kidneys: There are bilateral calyceal renal stones which are nonobstructing Vascular: There are moderate atherosclerotic changes in the abdominal aorta Lymphatic: Normal Peritoneal: No free peritoneal air or fluid Pelvis: Uterus: Lobulated contour suggests underlying fibroid changes Rectum: Normal Bladder: Normal The inferior thorax: Normal General: Skeletal: Normal Abdominal wall: Normal IMPRESSION: Pancreatitis. Nephrolithiasis One or more of the following dose reduction techniques were used: automated exposure control, adjustment of the mA and/or kV according to patient size, use of iterative reconstructive technique. THIS DOCUMENT HAS BEEN ELECTRONICALLY SIGNED Silverio Pride MD 06/17/2018 06:32 EST Medical Decision Making - Medical Decision Making *Reviewed vital signs, nursing notes, and prior visit documentation (if available). 57 y/o female presenting with epigastric and LUQ abdominal pain x2 days with vomiting, diarrhea, fever, and diaphoresis. H/o of pancreatitis and chronic EtOH abuse. Started after drinking pint of Vodka. Afebrile. Vitals remarkable for tachycardia. Suspect secondary to pain. Physical exam as described above. Concern for pancreatitis. Will obtain labs and CT of abdomen and pelvis with IV contrast with concern for chronic pancreatitis versus other intra abdominal pathology given tenderness. CBC unremarkable for anemia or leukocytosis. CMP revealed hyponatremia to 129 when corrected for glucose. Will begin replacement with NS rather than 3% as pt is not in a monitored ICU setting. BUN: Cr ratio 14. Potentially caused by poor liver function as LFTs are elevated. AST :ALT >2:1 suspect [place] [address]. Suspect acute pancreatitis as cause of pain. Will withhold antibiotics at this time as pt has no leukocytosis and is afebrile, normotensive, and only borderline tachycardia. Will obtain CT scan without IV contrast given current renal function. 04:[address] Colon. Verbally appraised of the pts HPI, ED course, and current plan of management. Requested CT abdomen and pelvis without contrast. Will admit for acute pancreatitis to med/surg on inpatient status. 06/17/18 06:37 CT concerning for pancreatitis. 06/17/18 06:39 Pt found sleeping comfortably in hospital bed. *DC/Admit/Observation/Transfer Diagnosis at time of Disposition: Acute pancreatitis Qualifiers: Pancreatitis type: unspecified pancreatitis type Acute pancreatitis complication: unspecified Qualified Code(s): K85.90 - Acute pancreatitis without necrosis or infection, unspecified - Discharge Dispostion Condition at time of disposition: Fair Decision to Admit order: Yes - Referrals - Patient Instructions - Post Discharge Activity
[2018-06-17] MEDS ORDERED: morphine SULFATE 4 MG/ML VIAL ONE ×2 (04:14→10:32)
[2018-06-17] MEDS ORDERED: ONDANSETRON 4 MG/2 ML VIAL ONE (04:14)
[2018-06-17 04:30] LABS: ALBUMIN 4.4 g/dl (3.4-5.0); ALK PHOS 172 U/L (45-117); ANION GAP 23 MMOL/L (8-16); BILIRUBIN,TOTAL 0.8 mg/dL (0.2-1); BLOOD UREA NITROGEN 23 mg/dL (7-18); CALCIUM 8.6 mg/dL (8.5-10.1); CHLORIDE 92 mmol/L (98-107); CO2 13 mmol/L (21-32); CREATININE 1.6 mg/dL (0.55-1.3); GLUCOSE,RANDOM 178 mg/dL (74-106); MAGNESIUM 1.8 mg/dL (1.8-2.4); PHOSPHOROUS 4.7 mg/dL (2.5-4.9); POTASSIUM 4.7 mmol/L (3.5-5.1); SGOT/AST 320 U/L (15-37); SGPT/ALT 100 U/L (13-61); SODIUM 128 mmol/L (136-145); TOT PROT 8.7 g/dl (6.4-8.2)
[2018-06-17 04:34] LABS: LIPASE 10467 U/L (73-393)
[2018-06-17] MEDS ORDERED: SODIUM CHLORIDE 1,000 ML IV SCH (05:00)
[2018-06-17] MEDS ORDERED: LACTATED RINGERS SOLUTION 1,000 ML/1,000 ML INFUS.BAG IV SCH (05:00)
[2018-06-17] MEDS ORDERED: ONDANSETRON 4 MG/2 ML VIAL IVPUSH PRN (09:57)
[2018-06-17] MEDS ORDERED: amLODIPine BESYLATE 10 MG TABLET (FP) PO SCH (10:00)
[2018-06-17] MEDS ORDERED: DEXTROSE 5%-0.45% SALINE 1,000 ML IV SCH (10:00)
[2018-06-17] MEDS ORDERED: POTASSIUM CHLORIDE TABS 20 MEQ TABLET.ER (FP) PO ONE (10:32)
[2018-06-17] MEDS ORDERED: FERROUS SO4 325 MG TABLET (FP) ONE (10:33)
[2018-06-17] MEDS ORDERED: amLODIPine BESYLATE 5 MG TABLET (FP) ONE (10:33)
[2018-06-17] MEDS: FERROUS SO4 325 MG TABLET (FP) PO SCH (10:49)
[2018-06-17] MEDS: POTASSIUM CHLORIDE TABS 20 MEQ TABLET.ER (FP) PO SCH (10:49)
[2018-06-17] MEDS: FOLIC ACID 1 MG TABLET (FP) PO SCH (10:49)
[2018-06-17] MEDS: ASPIRIN 81 MG CHEWABLE TABLETS PO SCH (10:49)
[2018-06-17] MEDS: morphine SULFATE 4 MG/ML VIAL IVPUSH PRN (10:49)
[2018-06-17] MEDS: THIAMINE HCL 100 MG TABLET (FP) PO SCH (13:35)
[2018-06-17] MEDS: FUROSEMIDE 20 MG TABLET (FP) PO SCH (15:06)
--- NOTE | 2018-06-17 15:13 | HP ---
Admitting History and Physical - Admission History of Present Illness: 57 y/o female presenting to [facility] ER complaining of abdominal pain x2 days. Pain is localized to epigastric region and LUQ with radiation to left flank and back. Worse with leaning backward. Endorses vomiting, diarrhea, fever, chills, diaphoresis, and dry skin. Emesis described as nonbloody and nonbilious. Diarrhea described as nonbloody. Pt endorses a history of similar pain with prior episodes of acute pancreatitis. Pt has a h/o of chronic EtOH abuse. States she drank a pint of Vodka on Monday. Denies chest pain or shortness of breath. 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 (SDH) Cardiovascular: Yes: HTN, Hyperlipdemia Pulmonary: Yes: COPD Gastrointestinal: Yes: GERD, Pancreatitis ...LMP: 01/08/97 Heme/Onc: Yes: Anemia Psych: Yes: Addictions, Anxiety, Depression, Other (ETOH abuse) - Past Surgical History Past Surgical History: Yes: Valve Replacement - Smoking History Smoking history: Current some day smoker Have you smoked in the past 12 months: Yes Aproximately how many cigarettes per day: 6 - Alcohol/Substance Use Hx Alcohol Use: Yes - Social History ADL: Independent History of Recent Travel: No Home Medications - Allergies Allergies/Adverse Reactions: Allergies Allergy/AdvReac Type Severity Reaction Status Date / Time No Known Allergies Allergy Verified 06/17/18 02:54 - Home Medications Home Medications: Ambulatory Orders Ferrous Sulfate 325 mg PO DAILY 01/31/17 Furosemide [Lasix -] 20 mg PO BID@0600,1400 #60 tablet 01/12/18 Amlodipine Besylate [Norvasc -] 5 mg PO DAILY 05/01/18 Aspirin [ASA -] 81 mg PO DAILY #30 tab.chew 05/03/18 Folic Acid - 1 mg PO DAILY #30 tablet 05/03/18 Potassium Chloride 20 meq PO DAILY #30 tablet.er 05/03/18 Thiamine HCl [Vitamin B1 -] 100 mg PO DAILY #30 tablet 05/03/18 Atorvastatin Ca [Lipitor] 40 mg PO HS 06/17/18 Family Disease History - Family Disease History Family Disease History: Diabetes: Father (), Mother (), Brother (/RENAL ), Heart Disease: Father, Other: Father, Mother, Brother Review of Systems - Review of Systems Constitutional: reports: Loss of Appetite Eyes: reports: No Symptoms HENT: reports: No Symptoms Neck: reports: No Symptoms Cardiovascular: reports: No Symptoms Respiratory: reports: No Symptoms Gastrointestinal: reports: Abdominal Pain, Diarrhea, Indigestion, Nausea, Vomiting Genitourinary: reports: No Symptoms Breasts: reports: No Symptoms Reported Musculoskeletal: reports: Back Pain Integumentary: reports: No Symptoms Neurological: reports: No Symptoms Endocrine: reports: No Symptoms Hematology/Lymphatic: reports: No Symptoms Psychiatric: reports: No Symptoms Physical Examination Vital Signs: Vital Signs Temperature 98.1 F 06/17/18 06:45 Pulse Rate 88 06/17/18 12:05 Respiratory Rate 18 06/17/18 12:05 Blood Pressure 115/77 06/17/18 12:05 O2 Sat by Pulse Oximetry (%) 98 06/17/18 12:05 Constitutional: Yes: Thin Eyes: Yes: Conjunctiva Clear, EOM Intact. No: Sclera Icterus HENT: Yes: WNL Neck: Yes: Supple, Trachea Midline Cardiovascular: Yes: Regular Rate and Rhythm Respiratory: Yes: CTA Bilaterally Gastrointestinal: Yes: Tenderness, Tenderness, Epigastrium ...Rectal Exam: Yes: Deferred Renal/: Yes: WNL Breast(s): Yes: WNL Musculoskeletal: Yes: Back Pain Extremities: Yes: WNL Edema: No Peripheral Pulses WNL: Yes Neurological: Yes: WNL, Alert Psychiatric: Yes: Alert, Oriented Labs: CBC, BMP 06/17/18 03:17 06/17/18 03:17 Problem List - Problems (1) Acute pancreatitis Assessment/Plan: IV fluids repeat labs keep NPO follow clinically Code(s): K85.90 - ACUTE PANCREATITIS WITHOUT NECROSIS OR INFECTION, UNSP Qualifiers: Pancreatitis type: unspecified pancreatitis type Acute pancreatitis complication: unspecified Qualified Code(s): K85.90 - Acute pancreatitis without necrosis or infection, unspecified (2) Anemia Assessment/Plan: 2/2 to chronic ETOH Code(s): D64.9 - ANEMIA, UNSPECIFIED (3) COPD (chronic obstructive pulmonary disease) Code(s): J44.9 - CHRONIC OBSTRUCTIVE PULMONARY DISEASE, UNSPECIFIED (4) HLD (hyperlipidemia) Code(s): E78.5 - HYPERLIPIDEMIA, UNSPECIFIED Qualifiers: Hyperlipidemia type: pure hypercholesterolemia Qualified Code(s): E78.00 - Pure hypercholesterolemia, unspecified; E78.0 - Pure hypercholesterolemia (5) Alcohol dependence with uncomplicated intoxication Code(s): F10.220 - ALCOHOL DEPENDENCE WITH INTOXICATION, UNCOMPLICATED (6) Nicotine dependence Code(s): F17.200 - NICOTINE DEPENDENCE, UNSPECIFIED, UNCOMPLICATED Qualifiers: Nicotine product type: cigarettes Substance use status: uncomplicated Qualified Code(s): F17.210 - Nicotine dependence, cigarettes, uncomplicated
[2018-06-17] MEDS: HEPARIN NA (PORCINE) 5,000 UNITS/ML 1ML VIAL SQ SCH ×2 (15:17→21:55)
[2018-06-17] MEDS: SODIUM CHLORIDE 1,000 ML IV SCH ×2 (18:26→22:47)
[2018-06-17] MEDS: ATORVASTATIN CA 40 MG TABLET (FP) PO SCH (21:55)
[2018-06-18] MEDS: SODIUM CHLORIDE 1,000 ML IV SCH ×4 (02:52→21:32)
[2018-06-18] MEDS: FUROSEMIDE 20 MG TABLET (FP) PO SCH (05:53)
[2018-06-18] MEDS: HEPARIN NA (PORCINE) 5,000 UNITS/ML 1ML VIAL SQ SCH ×3 (05:53→21:31)
--- NOTE | 2018-06-18 07:17 | EKG ---
Test Reason : Blood Pressure : / mmHG Vent. Rate : 113 BPM Atrial Rate : 113 BPM P-R Int : 122 ms QRS Dur : 082 ms QT Int : 332 ms P-R-T Axes : 081 069 078 degrees QTc Int : 455 ms SINUS TACHYCARDIA OTHERWISE NORMAL ECG WHEN COMPARED WITH ECG OF 01-MAY-2018 12:23, FUSION COMPLEXES ARE NO LONGER PRESENT PREMATURE VENTRICULAR COMPLEXES ARE NO LONGER PRESENT VENT. RATE HAS INCREASED BY 50 BPM MINIMAL CRITERIA FOR SEPTAL INFARCT ARE NO LONGER PRESENT T WAVE INVERSION NO LONGER EVIDENT IN ANTERIOR LEADS Confirmed by ENRIKE RESTREPO MD ([id number]) on 06/18/2018 7:16:50 AM Referred By: Confirmed By:ENRIKE RESTREPO MD
[2018-06-18 08:32] LABS: ALBUMIN 2.7 g/dl (3.4-5.0); ALK PHOS 94 U/L (45-117); ANION GAP 7 MMOL/L (8-16); BILIRUBIN,TOTAL 0.4 mg/dL (0.2-1); BLOOD UREA NITROGEN 10 mg/dL (7-18); CALCIUM 7.1 mg/dL (8.5-10.1); CHLORIDE 114 mmol/L (98-107); CO2 19 mmol/L (21-32); CREATININE 0.7 mg/dL (0.55-1.3); GLUCOSE,RANDOM 84 mg/dL (74-106); LIPASE 2219 U/L (73-393); POTASSIUM 3.7 mmol/L (3.5-5.1); SGOT/AST 66 U/L (15-37); SGPT/ALT 29 U/L (13-61); SODIUM 139 mmol/L (136-145); TOT PROT 5.3 g/dl (6.4-8.2)
[2018-06-18] MEDS ORDERED: PT OWN MED DRAWER 7, Y5N ONE (10:23)
[2018-06-18] MEDS: FERROUS SO4 325 MG TABLET (FP) PO SCH (11:29)
[2018-06-18] MEDS: FOLIC ACID 1 MG TABLET (FP) PO SCH (11:29)
[2018-06-18] MEDS: POTASSIUM CHLORIDE TABS 20 MEQ TABLET.ER (FP) PO SCH (11:29)
[2018-06-18] MEDS: THIAMINE HCL 100 MG TABLET (FP) PO SCH (11:29)
[2018-06-18] MEDS: ASPIRIN 81 MG CHEWABLE TABLETS PO SCH (11:29)
[2018-06-18] MEDS: amLODIPine BESYLATE 5 MG TABLET (FP) PO SCH (11:29)
[2018-06-18] MEDS ORDERED: FUROSEMIDE 40 MG/4 ML INJECTABLE VIAL IVPUSH SCH (14:00)
--- NOTE | 2018-06-18 15:05 | CON.GI ---
Consult Consult Specialty:: GI - History of Present Illness Chief Complaint: abdominal pain History of Present Illness: patient seen in ER holding yesterday. %^ y/o F with PMH of alcohol pancreatitis with similar admission in the past,started to use alcohol the past few weeks. Developed severe abdominal pain 24 hours prior to admission. In the ER she received IV hydration and was frustrated because she restarted drinking alcohol again. 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) Cardio/Vascular: Yes: HTN, Hyperlipdemia Pulmonary: Yes: COPD Gastrointestinal: Yes: GERD, Pancreatitis ...LMP: 01/08/97 ...: No Psych: Yes: Addictions, Anxiety, Depression, Other (ETOH abuse) - Past Surgical History Past Surgical History: Yes: Valve Replacement - Alcohol/Substance Use Hx Alcohol Use: Yes - Smoking History Smoking history: Current every day smoker Have you smoked in the past 12 months: Yes Aproximately how many cigarettes per day: 6 - Social History ADL: Independent History of Recent Travel: No Home Medications - Allergies Allergies/Adverse Reactions: Allergies Allergy/AdvReac Type Severity Reaction Status Date / Time No Known Allergies Allergy Verified 06/17/18 02:54 - Home Medications Home Medications: Ambulatory Orders Ferrous Sulfate 325 mg PO DAILY 01/31/17 Furosemide [Lasix -] 20 mg PO BID@0600,1400 #60 tablet 01/12/18 Amlodipine Besylate [Norvasc -] 5 mg PO DAILY 05/01/18 Aspirin [ASA -] 81 mg PO DAILY #30 tab.chew 05/03/18 Folic Acid - 1 mg PO DAILY #30 tablet 05/03/18 Potassium Chloride 20 meq PO DAILY #30 tablet.er 05/03/18 Thiamine HCl [Vitamin B1 -] 100 mg PO DAILY #30 tablet 05/03/18 Atorvastatin Ca [Lipitor] 40 mg PO HS 06/17/18 Family Disease History - Family Disease History Family Disease History: Diabetes: Father (), Mother (), Brother (/RENAL ), Heart Disease: Father, Other: Father, Mother, Brother Physical Exam-GI Vital Signs: Vital Signs Temperature 98.5 F 06/18/18 09:30 Pulse Rate 61 06/18/18 13:53 Respiratory Rate 18 06/18/18 09:30 Blood Pressure 109/67 06/18/18 13:53 O2 Sat by Pulse Oximetry (%) 98 06/17/18 21:00 Constitutional: Yes: Well Nourished Eyes: Yes: Conjunctiva Clear HENT: Yes: Atraumatic Neck: Yes: Supple Cardiovascular: Yes: Regular Rate and Rhythm Respiratory: Yes: CTA Bilaterally Gastrointestinal Inspection: No: Ascites, Distention ...Auscultate: Yes: Normoactive Bowel Sounds ...Palpate: Yes: Hepatomegaly, Soft, Tenderness, Epigastium. No: Firm/Rigid, Guarding, Mass, Pulsatile Mass ...Percussion: No: Tympanitic Labs: CBC, BMP 06/17/18 03:17 06/18/18 07:00 INR, PTT INR 0.92 (0.83-1.09) 06/17/18 03:17 Hepatic Panel Total Bilirubin 0.4 mg/dL (0.2-1) 06/18/18 07:00 AST 66 U/L (15-37) H 06/18/18 07:00 ALT 29 U/L (13-61) 06/18/18 07:00 Alkaline Phosphatase 94 U/L (45-117) 06/18/18 07:00 Albumin 2.7 g/dl (3.4-5.0) L 06/18/18 07:00 Home Medications Medication Instructions Recorded Ferrous Sulfate 325 mg PO DAILY 01/31/17 Furosemide [Lasix -] 20 mg PO BID@0600,1400 #60 tablet 01/12/18 Amlodipine Besylate [Norvasc -] 5 mg PO DAILY 05/01/18 Aspirin [ASA -] 81 mg PO DAILY #30 tab.chew 05/03/18 Folic Acid - 1 mg PO DAILY #30 tablet 05/03/18 Potassium Chloride 20 meq PO DAILY #30 tablet.er 05/03/18 Thiamine HCl [Vitamin B1 -] 100 mg PO DAILY #30 tablet 05/03/18 Atorvastatin Ca [Lipitor] 40 mg PO HS 06/17/18 Problem List - Problems (1) Alcoholic pancreatitis Assessment/Plan: R> continue IV hydration asked to abstain from alcohol and attend rehabilitation and AA please recall as necessary Code(s): K85.20 - ALCOHOL INDUCED ACUTE PANCREATITIS WITHOUT NECROSIS OR INFCT
--- NOTE | 2018-06-18 20:54 | PN ---
Physical Exam: SUBJECTIVE: Patient seen and examined Patient is frustrated because she is eager to eat food. She denies chest pain, shortness of breath, dizziness, palpitations, abdominal pain, diarrhea, nausea, vomiting or fever. She denies tremors or signs of withdrawal. OBJECTIVE: Vital Signs Period Temp Pulse Resp BP Sys/Chváez Pulse Ox Last 24 Hr 97.8 F-98.6 F 51-70 18-18 106-123/67-88 98 GENERAL: no acute distress NECK: full range of motion, supple LUNGS: breath sounds equal, clear to auscultation bilaterally, no wheezes, no crackles, no accessory muscle use. HEART: rate normal and regular ABDOMEN: soft nontender nondistended no acute abdomen EXTREMITIES: warm to touch no pitting edema NEUROLOGICAL: normal speech, gait not observed PSYCH: anxious SKIN: warm dry normal skin turgor no rashes or lesions noted Laboratory Results - last 24 hr 06/18/18 07:00 Sodium 139 Potassium 3.7 Chloride 114 H Carbon Dioxide 19 L Anion Gap 7 L BUN 10 Creatinine 0.7 Creat Clearance w eGFR > 60 Random Glucose 84 Calcium 7.1 L Total Bilirubin 0.4 AST 66 H ALT 29 Alkaline Phosphatase 94 Total Protein 5.3 L Albumin 2.7 L Lipase 2219 H Active Medications Generic Name Dose Route Start Last Admin Trade Name Damirq PRN Reason Stop Dose Admin Amlodipine Besylate 5 mg 06/17/18 11:34 06/18/18 11:29 Norvasc - PO Not Given DAILY DK Aspirin 81 mg 06/17/18 10:00 06/18/18 11:29 Asa - PO Not Given DAILY DK Atorvastatin Calcium 40 mg 06/17/18 22:00 06/17/18 21:55 Lipitor - PO Not Given HS DK Ferrous Sulfate 325 mg 06/17/18 10:00 06/18/18 11:29 Feosol - PO Not Given DAILY DK Folic Acid 1 mg 06/17/18 10:00 06/18/18 11:29 Folic Acid - PO Not Given DAILY DK Furosemide 20 mg 06/18/18 14:00 06/18/18 14:07 Lasix Injection - IVPUSH 20 mg BID@0600,1400 DK Administration Heparin Sodium (Porcine) 5,000 unit 06/17/18 14:00 06/18/18 14:08 Heparin - SQ 5,000 unit TID DK Administration Sodium Chloride 1,000 mls @ 100 mls/hr 06/18/18 09:23 06/18/18 11:27 Normal Saline - IV 100 mls/hr ASDIR DK Administration Morphine Sulfate 4 mg 06/17/18 09:56 06/17/18 10:49 Morphine Sulfate IVPUSH 4 mg Q6H PRN Administration PAIN LEVEL 1-5 Ondansetron HCl 4 mg 06/17/18 09:57 Zofran Injection IVPUSH Q6H PRN NAUSEA AND/OR VOMITING Potassium Chloride 20 meq 06/17/18 10:00 06/18/18 11:29 K-Dur - PO Not Given DAILY DK Thiamine HCl 100 mg 06/17/18 10:00 06/18/18 11:29 Vitamin B1 - PO Not Given DAILY DK ASSESSMENT/PLAN: 57 year old female with history of hypertension, hyperlipidemia,coronary artery disease, prior CABG/MVR,anemia, GERD, depression and alcohol abuse who presented with abdominal pain. She was found to have alcoholic pancreatitis Alcoholic Pancreatitis Patient denies abdominal pain, n/v/d,remains afebrile. Seen by Gastroenterology. Continue with IV hydration. Continue with clear liquid diet. Hypertension Controlled . Continue amlodipine. Coronary Artery Disease/MVR(likely repair or tissue valve as patient is not on anticoagulation) She denies active anginal symptoms. Patient appears euvolemic. Continue with baby aspirin statin and amlodipine. Discontinue IV lasix as patient is on IV hydration. Hyperlipidemia Continue with atorvastatin. Continue to monitor LFT's closely. Anemia Continue with folic acid and ferrous sulfate. Chronic COPD No acute exacerbation. Depression/ Alcohol Abuse/Nicotine Dependence Continue with thiamine. Referral to Case Management evaluation to detox/rehab/ AA. Visit type - Emergency Visit Emergency Visit: No - New Patient This patient is new to me today: Yes Date on this admission: 06/18/18 - Critical Care Critical Care patient: No
[2018-06-18] MEDS: ATORVASTATIN CA 40 MG TABLET (FP) PO SCH (21:31)
[2018-06-19] MEDS: morphine SULFATE 4 MG/ML VIAL IVPUSH PRN (01:58)
[2018-06-19] MEDS: HEPARIN NA (PORCINE) 5,000 UNITS/ML 1ML VIAL SQ SCH ×3 (06:28→21:33)
[2018-06-19] MEDS: SODIUM CHLORIDE 1,000 ML IV SCH ×2 (07:38→18:24)
[2018-06-19] MEDS ORDERED: PT OWN MED DRAWER 7, Y5N ONE (08:21)
[2018-06-19] MEDS: POTASSIUM CHLORIDE TABS 20 MEQ TABLET.ER (FP) PO SCH (09:38)
[2018-06-19] MEDS: FERROUS SO4 325 MG TABLET (FP) PO SCH (09:38)
[2018-06-19] MEDS: FOLIC ACID 1 MG TABLET (FP) PO SCH (09:38)
[2018-06-19] MEDS: ASPIRIN 81 MG CHEWABLE TABLETS PO SCH (09:38)
[2018-06-19] MEDS: amLODIPine BESYLATE 5 MG TABLET (FP) PO SCH (09:38)
[2018-06-19] MEDS: THIAMINE HCL 100 MG TABLET (FP) PO SCH (09:38)
--- NOTE | 2018-06-19 17:56 | PN ---
Progress Note, Physician History of Present Illness: feeling better no pain in belly just uncomfortable - Current Medication List Current Medications: Active Medications Amlodipine Besylate (Norvasc -) 5 mg PO DAILY [facility] Last Admin: 06/19/18 09:38 Dose: 5 mg Aspirin (Asa -) 81 mg PO DAILY [facility] Last Admin: 06/19/18 09:38 Dose: 81 mg Atorvastatin Calcium (Lipitor -) 40 mg PO HS [facility] Last Admin: 06/18/18 21:31 Dose: 40 mg Ferrous Sulfate (Feosol -) 325 mg PO DAILY [facility] Last Admin: 06/19/18 09:38 Dose: 325 mg Folic Acid (Folic Acid -) 1 mg PO DAILY [facility] Last Admin: 06/19/18 09:38 Dose: 1 mg Heparin Sodium (Porcine) (Heparin -) 5,000 unit SQ TID [facility] Last Admin: 06/19/18 14:02 Dose: Not Given Sodium Chloride (Normal Saline -) 1,000 mls @ 100 mls/hr IV ASDIR [facility] Last Admin: 06/19/18 07:38 Dose: 100 mls/hr Morphine Sulfate (Morphine Sulfate) 4 mg IVPUSH Q6H PRN PRN Reason: PAIN LEVEL 1-5 Last Admin: 06/19/18 01:58 Dose: 4 mg Ondansetron HCl (Zofran Injection) 4 mg IVPUSH Q6H PRN PRN Reason: NAUSEA AND/OR VOMITING Potassium Chloride (K-Dur -) 20 meq PO DAILY [facility] Last Admin: 06/19/18 09:38 Dose: 20 meq Thiamine HCl (Vitamin B1 -) 100 mg PO DAILY [facility] Last Admin: 06/19/18 09:38 Dose: 100 mg - Objective Vital Signs: Vital Signs Temperature 98.3 F 06/19/18 14:14 Pulse Rate 60 06/19/18 14:14 Respiratory Rate 16 06/19/18 14:14 Blood Pressure 129/77 06/19/18 14:14 O2 Sat by Pulse Oximetry (%) 98 06/19/18 09:00 Constitutional: Yes: No Distress HENT: Yes: Atraumatic Neck: Yes: Supple Cardiovascular: Yes: Regular Rate and Rhythm Respiratory: Yes: CTA Bilaterally Gastrointestinal: Yes: Normal Bowel Sounds Extremities: Yes: WNL Edema: No Neurological: Yes: Alert, Oriented Labs: CBC, BMP 06/17/18 03:17 06/18/18 07:00 INR, PTT INR 0.92 (0.83-1.09) 06/17/18 03:17 Problem List - Problems (1) Acute pancreatitis Assessment/Plan: on clear liquid diet follow up labs prn pain meds ivf Code(s): K85.90 - ACUTE PANCREATITIS WITHOUT NECROSIS OR INFECTION, UNSP Qualifiers: Pancreatitis type: unspecified pancreatitis type Acute pancreatitis complication: unspecified Qualified Code(s): K85.90 - Acute pancreatitis without necrosis or infection, unspecified (2) COPD (chronic obstructive pulmonary disease) Code(s): J44.9 - CHRONIC OBSTRUCTIVE PULMONARY DISEASE, UNSPECIFIED (3) HLD (hyperlipidemia) Assessment/Plan: on meds Code(s): E78.5 - HYPERLIPIDEMIA, UNSPECIFIED Qualifiers: Hyperlipidemia type: pure hypercholesterolemia Qualified Code(s): E78.00 - Pure hypercholesterolemia, unspecified; E78.0 - Pure hypercholesterolemia (4) HTN (hypertension) Assessment/Plan: on meds Code(s): I10 - ESSENTIAL (PRIMARY) HYPERTENSION (5) Alcohol dependence with uncomplicated intoxication Code(s): F10.220 - ALCOHOL DEPENDENCE WITH INTOXICATION, UNCOMPLICATED (6) Nicotine dependence Code(s): F17.200 - NICOTINE DEPENDENCE, UNSPECIFIED, UNCOMPLICATED Qualifiers: Nicotine product type: cigarettes Substance use status: uncomplicated Qualified Code(s): F17.210 - Nicotine dependence, cigarettes, uncomplicated Assessment/Plan covering for dr maycol kevin
[2018-06-19] MEDS: ATORVASTATIN CA 40 MG TABLET (FP) PO SCH (21:33)
[2018-06-20] MEDS: SODIUM CHLORIDE 1,000 ML IV SCH ×3 (04:34→15:20)
[2018-06-20] MEDS: HEPARIN NA (PORCINE) 5,000 UNITS/ML 1ML VIAL SQ SCH ×3 (05:46→21:36)
[2018-06-20 07:31] LABS: BASO % 0.5 % (0-2.0); EOS % 1.4 % (0-4.5); HEMOGLOBIN 10.3 GM/dL (10.7-15.3); LYMPH % 33.8 % (8-40); MCH 33.4 pg (25.7-33.7); MCHC 33.3 g/dl (32.0-36.0); MEAN CELL VOLUME 100.4 fl (80-96); MEAN PLT VOLUME 10.4 fl (7.5-11.1); MONO % 5.9 % (3.8-10.2); NEUT % 58.4 % (42.8-82.8); PLATELET COUNT 101 K/MM3 (134-434); RBC 3.08 M/mm3 (3.60-5.2); RDW 14.6 % (11.6-15.6); WHITE BLOOD COUNT 4.8 K/mm3 (4.0-10.0)
[2018-06-20 08:36] LABS: ALBUMIN 3.4 g/dl (3.4-5.0); ALK PHOS 109 U/L (45-117); AMYLASE 137 U/L (25-115); ANION GAP 10 MMOL/L (8-16); BILIRUBIN,TOTAL 0.4 mg/dL (0.2-1); BLOOD UREA NITROGEN 3 mg/dL (7-18); CALCIUM 8.1 mg/dL (8.5-10.1); CHLORIDE 107 mmol/L (98-107); CO2 23 mmol/L (21-32); CREATININE 0.7 mg/dL (0.55-1.3); GLUCOSE,RANDOM 125 mg/dL (74-106); LIPASE 1061 U/L (73-393); POTASSIUM 3.2 mmol/L (3.5-5.1); SGOT/AST 53 U/L (15-37); SGPT/ALT 33 U/L (13-61); SODIUM 140 mmol/L (136-145); TOT PROT 6.8 g/dl (6.4-8.2)
[2018-06-20] MEDS ORDERED: PT OWN MED DRAWER 7, Y5N ONE (09:37)
[2018-06-20] MEDS: POTASSIUM CHLORIDE TABS 20 MEQ TABLET.ER (FP) PO SCH (09:39)
[2018-06-20] MEDS: FOLIC ACID 1 MG TABLET (FP) PO SCH (09:39)
[2018-06-20] MEDS: ASPIRIN 81 MG CHEWABLE TABLETS PO SCH (09:39)
[2018-06-20] MEDS: THIAMINE HCL 100 MG TABLET (FP) PO SCH (09:39)
[2018-06-20] MEDS: FERROUS SO4 325 MG TABLET (FP) PO SCH (09:39)
[2018-06-20] MEDS: amLODIPine BESYLATE 5 MG TABLET (FP) PO SCH (09:39)
[2018-06-20] MEDS ORDERED: POTASSIUM CHLORIDE TABS 20 MEQ TABLET.ER (FP) PO ONE (16:00)
--- NOTE | 2018-06-20 19:45 | PN ---
Progress Note, Physician History of Present Illness: Tolerating diet - Current Medication List Current Medications: Active Medications Amlodipine Besylate (Norvasc -) 5 mg PO DAILY [facility] Last Admin: 06/20/18 09:39 Dose: 5 mg Aspirin (Asa -) 81 mg PO DAILY [facility] Last Admin: 06/20/18 09:39 Dose: 81 mg Atorvastatin Calcium (Lipitor -) 40 mg PO HS [facility] Last Admin: 06/19/18 21:33 Dose: 40 mg Ferrous Sulfate (Feosol -) 325 mg PO DAILY [facility] Last Admin: 06/20/18 09:39 Dose: 325 mg Folic Acid (Folic Acid -) 1 mg PO DAILY [facility] Last Admin: 06/20/18 09:39 Dose: 1 mg Heparin Sodium (Porcine) (Heparin -) 5,000 unit SQ TID [facility] Last Admin: 06/20/18 13:51 Dose: 5,000 unit Sodium Chloride (Normal Saline -) 1,000 mls @ 100 mls/hr IV ASDIR [facility] Last Admin: 06/20/18 15:20 Dose: Not Given Ondansetron HCl (Zofran Injection) 4 mg IVPUSH Q6H PRN PRN Reason: NAUSEA AND/OR VOMITING Potassium Chloride (K-Dur -) 20 meq PO DAILY [facility] Last Admin: 06/20/18 09:39 Dose: 20 meq Thiamine HCl (Vitamin B1 -) 100 mg PO DAILY [facility] Last Admin: 06/20/18 09:39 Dose: 100 mg - Objective Vital Signs: Vital Signs Temperature 97.4 F L 06/20/18 17:00 Pulse Rate 58 L 06/20/18 17:00 Respiratory Rate 18 06/20/18 17:00 Blood Pressure 137/87 06/20/18 17:00 O2 Sat by Pulse Oximetry (%) 99 06/19/18 20:32 Cardiovascular: Yes: WNL, Regular Rate and Rhythm Respiratory: Yes: WNL, Regular, CTA Bilaterally Gastrointestinal: Yes: WNL, Normal Bowel Sounds, Soft Labs: CBC, BMP 06/20/18 07:00 06/20/18 07:00 INR, PTT INR 0.92 (0.83-1.09) 06/17/18 03:17 Problem List - Problems (1) Alcoholic pancreatitis Assessment/Plan: Cont to trend lipase/amylase Cont IVF GI consult noted Code(s): K85.20 - ALCOHOL INDUCED ACUTE PANCREATITIS WITHOUT NECROSIS OR INFCT (2) Anemia Assessment/Plan: Cont feso4 Code(s): D64.9 - ANEMIA, UNSPECIFIED (3) HLD (hyperlipidemia) Assessment/Plan: Cont lipitor Code(s): E78.5 - HYPERLIPIDEMIA, UNSPECIFIED Qualifiers: Hyperlipidemia type: pure hypercholesterolemia Qualified Code(s): E78.00 - Pure hypercholesterolemia, unspecified; E78.0 - Pure hypercholesterolemia (4) HTN (hypertension) Assessment/Plan: Cont norvasc/asa BP stable Code(s): I10 - ESSENTIAL (PRIMARY) HYPERTENSION (5) Malnutrition Code(s): E46 - UNSPECIFIED PROTEIN-CALORIE MALNUTRITION
[2018-06-20] MEDS: ATORVASTATIN CA 40 MG TABLET (FP) PO SCH (21:32)
[2018-06-21] MEDS: HEPARIN NA (PORCINE) 5,000 UNITS/ML 1ML VIAL SQ SCH ×3 (06:10→21:22)
[2018-06-21] MEDS: FOLIC ACID 1 MG TABLET (FP) PO SCH (10:04)
[2018-06-21] MEDS: THIAMINE HCL 100 MG TABLET (FP) PO SCH (10:04)
[2018-06-21] MEDS: SODIUM CHLORIDE 1,000 ML IV SCH (10:04)
[2018-06-21] MEDS: POTASSIUM CHLORIDE TABS 20 MEQ TABLET.ER (FP) PO SCH (10:04)
[2018-06-21] MEDS: FERROUS SO4 325 MG TABLET (FP) PO SCH (10:04)
[2018-06-21] MEDS: ASPIRIN 81 MG CHEWABLE TABLETS PO SCH (10:04)
[2018-06-21] MEDS: amLODIPine BESYLATE 5 MG TABLET (FP) PO SCH (10:04)
[2018-06-21] MEDS: ATORVASTATIN CA 40 MG TABLET (FP) PO SCH (21:22)
--- NOTE | 2018-06-21 23:52 | PN ---
Progress Note, Physician History of Present Illness: Tolerating diet - Current Medication List Current Medications: Active Medications Amlodipine Besylate (Norvasc -) 5 mg PO DAILY [facility] Last Admin: 06/21/18 10:04 Dose: 5 mg Aspirin (Asa -) 81 mg PO DAILY [facility] Last Admin: 06/21/18 10:04 Dose: 81 mg Atorvastatin Calcium (Lipitor -) 40 mg PO HS [facility] Last Admin: 06/21/18 21:22 Dose: 40 mg Ferrous Sulfate (Feosol -) 325 mg PO DAILY [facility] Last Admin: 06/21/18 10:04 Dose: 325 mg Folic Acid (Folic Acid -) 1 mg PO DAILY [facility] Last Admin: 06/21/18 10:04 Dose: 1 mg Heparin Sodium (Porcine) (Heparin -) 5,000 unit SQ TID [facility] Last Admin: 06/21/18 21:22 Dose: 5,000 unit Sodium Chloride (Normal Saline -) 1,000 mls @ 100 mls/hr IV ASDIR [facility] Last Admin: 06/21/18 10:04 Dose: Not Given Ondansetron HCl (Zofran Injection) 4 mg IVPUSH Q6H PRN PRN Reason: NAUSEA AND/OR VOMITING Potassium Chloride (K-Dur -) 20 meq PO DAILY [facility] Last Admin: 06/21/18 10:04 Dose: 20 meq Thiamine HCl (Vitamin B1 -) 100 mg PO DAILY [facility] Last Admin: 06/21/18 10:04 Dose: 100 mg - Objective Vital Signs: Vital Signs Temperature 98.8 F 06/21/18 16:58 Pulse Rate 76 06/21/18 16:58 Respiratory Rate 20 06/21/18 16:58 Blood Pressure 130/78 06/21/18 16:58 O2 Sat by Pulse Oximetry (%) 99 06/21/18 09:00 Neck: Yes: WNL, Supple Cardiovascular: Yes: WNL, Regular Rate and Rhythm Respiratory: Yes: WNL, Regular, CTA Bilaterally Gastrointestinal: Yes: WNL, Normal Bowel Sounds, Soft Labs: CBC, BMP 06/20/18 07:00 06/20/18 07:00 INR, PTT INR 0.92 (0.83-1.09) 06/17/18 03:17 Problem List - Problems (1) Alcoholic pancreatitis Code(s): K85.20 - ALCOHOL INDUCED ACUTE PANCREATITIS WITHOUT NECROSIS OR INFCT (2) Anemia Code(s): D64.9 - ANEMIA, UNSPECIFIED (3) HLD (hyperlipidemia) Code(s): E78.5 - HYPERLIPIDEMIA, UNSPECIFIED Qualifiers: Hyperlipidemia type: pure hypercholesterolemia Qualified Code(s): E78.00 - Pure hypercholesterolemia, unspecified; E78.0 - Pure hypercholesterolemia (4) HTN (hypertension) Code(s): I10 - ESSENTIAL (PRIMARY) HYPERTENSION (5) Malnutrition Code(s): E46 - UNSPECIFIED PROTEIN-CALORIE MALNUTRITION (6) Alcohol dependence with uncomplicated intoxication Code(s): F10.220 - ALCOHOL DEPENDENCE WITH INTOXICATION, UNCOMPLICATED (7) Nicotine dependence Code(s): F17.200 - NICOTINE DEPENDENCE, UNSPECIFIED, UNCOMPLICATED Qualifiers: Nicotine product type: cigarettes Substance use status: uncomplicated Qualified Code(s): F17.210 - Nicotine dependence, cigarettes, uncomplicated
[2018-06-22] MEDS: HEPARIN NA (PORCINE) 5,000 UNITS/ML 1ML VIAL SQ SCH ×3 (06:41→21:22)
[2018-06-22 09:18] LABS: ALBUMIN 2.9 g/dl (3.4-5.0); ALK PHOS 87 U/L (45-117); AMYLASE 139 U/L (25-115); ANION GAP 11 MMOL/L (8-16); BILIRUBIN,TOTAL 0.2 mg/dL (0.2-1); BLOOD UREA NITROGEN 5 mg/dL (7-18); CALCIUM 7.5 mg/dL (8.5-10.1); CHLORIDE 111 mmol/L (98-107); CO2 17 mmol/L (21-32); CREATININE 0.7 mg/dL (0.55-1.3); GLUCOSE,RANDOM 244 mg/dL (74-106); LIPASE 1157 U/L (73-393); POTASSIUM 3.4 mmol/L (3.5-5.1); SGOT/AST 31 U/L (15-37); SGPT/ALT 24 U/L (13-61); SODIUM 139 mmol/L (136-145)
[2018-06-22 09:54] LABS: BASO % 0.8 % (0-2.0); EOS % 1.2 % (0-4.5); HEMATOCRIT 26.8 % (32.4-45.2); HEMOGLOBIN 9.6 GM/dL (10.7-15.3); LYMPH % 33.3 % (8-40); MCH 35.5 pg (25.7-33.7); MCHC 35.8 g/dl (32.0-36.0); MEAN CELL VOLUME 99.1 fl (80-96); MONO % 8.4 % (3.8-10.2); NEUT % 56.3 % (42.8-82.8); PLATELET COUNT 162 K/MM3 (134-434); RDW 14.8 % (11.6-15.6); WHITE BLOOD COUNT 7.3 K/mm3 (4.0-10.0)
[2018-06-22] MEDS: SODIUM CHLORIDE 1,000 ML IV SCH (12:20)
[2018-06-22] MEDS: POTASSIUM CHLORIDE TABS 20 MEQ TABLET.ER (FP) PO SCH (12:21)
[2018-06-22] MEDS: FOLIC ACID 1 MG TABLET (FP) PO SCH (12:21)
[2018-06-22] MEDS: ASPIRIN 81 MG CHEWABLE TABLETS PO SCH (12:21)
[2018-06-22] MEDS: FERROUS SO4 325 MG TABLET (FP) PO SCH (12:21)
[2018-06-22] MEDS: amLODIPine BESYLATE 5 MG TABLET (FP) PO SCH (12:21)
[2018-06-22] MEDS: THIAMINE HCL 100 MG TABLET (FP) PO SCH (12:21)
--- NOTE | 2018-06-22 16:47 | PN ---
GI Progress Note Subjective: patient seen last evening, She denies nausea ,vomiting and abdominal pain. She was tolerating clear liquids and lipase was noted to be down to 1000 - Objective Vital Signs: Vital Signs Temperature 98.7 F 06/22/18 15:08 Pulse Rate 63 06/22/18 15:08 Respiratory Rate 17 06/22/18 15:08 Blood Pressure 139/76 06/22/18 15:08 O2 Sat by Pulse Oximetry (%) 99 06/22/18 10:00 Constitutional: Well Nourished Eyes: Yes: Conjunctiva Clear HENT: Yes: Atraumatic, Tonsillar Exudate Cardiovascular: Yes: Regular Rate and Rhythm Respiratory: Yes: Regular ...Palpate: Yes: Soft. No: Firm/Rigid, Guarding, Hepatomegaly, Mass, Pulsatile Mass, Splenomegaly, Tenderness, Epigastium Labs: CBC, BMP 06/22/18 09:38 06/22/18 07:30 INR, PTT INR 0.92 (0.83-1.09) 06/17/18 03:17 Problem List - Problems (1) Alcoholic pancreatitis Assessment/Plan: --resolviing R> advance diet to a low fat lactose free Creo 36,000 tid with meals Code(s): K85.20 - ALCOHOL INDUCED ACUTE PANCREATITIS WITHOUT NECROSIS OR INFCT
[2018-06-22] MEDS: ATORVASTATIN CA 40 MG TABLET (FP) PO SCH (21:22)
--- NOTE | 2018-06-22 22:39 | PN ---
Progress Note, Physician History of Present Illness: No new complaints - Current Medication List Current Medications: Active Medications Amlodipine Besylate (Norvasc -) 5 mg PO DAILY [facility] Last Admin: 06/22/18 12:21 Dose: 5 mg Aspirin (Asa -) 81 mg PO DAILY [facility] Last Admin: 06/22/18 12:21 Dose: 81 mg Atorvastatin Calcium (Lipitor -) 40 mg PO HS [facility] Last Admin: 06/22/18 21:22 Dose: 40 mg Ferrous Sulfate (Feosol -) 325 mg PO DAILY [facility] Last Admin: 06/22/18 12:21 Dose: 325 mg Folic Acid (Folic Acid -) 1 mg PO DAILY [facility] Last Admin: 06/22/18 12:21 Dose: 1 mg Heparin Sodium (Porcine) (Heparin -) 5,000 unit SQ TID [facility] Last Admin: 06/22/18 21:22 Dose: 5,000 unit Sodium Chloride (Normal Saline -) 1,000 mls @ 100 mls/hr IV ASDIR [facility] Last Admin: 06/22/18 12:20 Dose: 100 mls/hr Ondansetron HCl (Zofran Injection) 4 mg IVPUSH Q6H PRN PRN Reason: NAUSEA AND/OR VOMITING Potassium Chloride (K-Dur -) 20 meq PO DAILY [facility] Last Admin: 06/22/18 12:21 Dose: 20 meq Thiamine HCl (Vitamin B1 -) 100 mg PO DAILY [facility] Last Admin: 06/22/18 12:21 Dose: 100 mg - Objective Vital Signs: Vital Signs Temperature 98.1 F 06/22/18 19:50 Pulse Rate 66 06/22/18 19:50 Respiratory Rate 18 06/22/18 19:50 Blood Pressure 134/74 06/22/18 19:50 O2 Sat by Pulse Oximetry (%) 99 06/22/18 19:45 HENT: Yes: WNL Neck: Yes: WNL, Supple Cardiovascular: Yes: WNL, Regular Rate and Rhythm Respiratory: Yes: WNL, Regular, CTA Bilaterally Gastrointestinal: Yes: WNL, Normal Bowel Sounds, Soft Labs: CBC, BMP 06/22/18 09:38 06/22/18 07:30 INR, PTT INR 0.92 (0.83-1.09) 06/17/18 03:17 Problem List - Problems (1) Alcoholic pancreatitis Assessment/Plan: Lipase slighty increasing Probably due to chronic pancreatitis from chronic etoh abuse Cont creon Code(s): K85.20 - ALCOHOL INDUCED ACUTE PANCREATITIS WITHOUT NECROSIS OR INFCT (2) Anemia Assessment/Plan: Cont feso4 Code(s): D64.9 - ANEMIA, UNSPECIFIED (3) COPD (chronic obstructive pulmonary disease) Code(s): J44.9 - CHRONIC OBSTRUCTIVE PULMONARY DISEASE, UNSPECIFIED (4) HLD (hyperlipidemia) Assessment/Plan: Cont lipitor Code(s): E78.5 - HYPERLIPIDEMIA, UNSPECIFIED Qualifiers: Hyperlipidemia type: pure hypercholesterolemia Qualified Code(s): E78.00 - Pure hypercholesterolemia, unspecified; E78.0 - Pure hypercholesterolemia (5) HTN (hypertension) Assessment/Plan: Cont antihypertenisves BP stable Code(s): I10 - ESSENTIAL (PRIMARY) HYPERTENSION (6) Malnutrition Assessment/Plan: BMI 17.2 Due to ETOH abuse Code(s): E46 - UNSPECIFIED PROTEIN-CALORIE MALNUTRITION (7) Alcohol dependence with uncomplicated intoxication Assessment/Plan: Long d/w pt about need to stop drinking etoh Code(s): F10.220 - ALCOHOL DEPENDENCE WITH INTOXICATION, UNCOMPLICATED (8) Nicotine dependence Code(s): F17.200 - NICOTINE DEPENDENCE, UNSPECIFIED, UNCOMPLICATED Qualifiers: Nicotine product type: cigarettes Substance use status: uncomplicated Qualified Code(s): F17.210 - Nicotine dependence, cigarettes, uncomplicated
[2018-06-22] MEDS: LIPASE/PROTEASE/AMYLASE 36,000 UNIT CAPSULE PO SCH (23:03)
[2018-06-23] MEDS: HEPARIN NA (PORCINE) 5,000 UNITS/ML 1ML VIAL SQ SCH ×3 (06:16→21:29)
[2018-06-23] MEDS ORDERED: PT OWN MED DRAWER 7, Y5N ONE ×3 (06:56→13:48)
[2018-06-23 07:24] LABS: BASO % 0.4 % (0-2.0); EOS % 1.6 % (0-4.5); HEMATOCRIT 27.5 % (32.4-45.2); MCH 33.2 pg (25.7-33.7); MCHC 32.7 g/dl (32.0-36.0); MEAN CELL VOLUME 101.6 fl (80-96); MEAN PLT VOLUME 9.9 fl (7.5-11.1); PLATELET COUNT 184 K/MM3 (134-434); RBC 2.71 M/mm3 (3.60-5.2); RDW 15.2 % (11.6-15.6); WHITE BLOOD COUNT 5.9 K/mm3 (4.0-10.0)
[2018-06-23 07:51] LABS: ALK PHOS 91 U/L (45-117); AMYLASE 155 U/L (25-115); ANION GAP 9 MMOL/L (8-16); BILIRUBIN,TOTAL 0.2 mg/dL (0.2-1); BLOOD UREA NITROGEN 7 mg/dL (7-18); CALCIUM 8.6 mg/dL (8.5-10.1); CHLORIDE 111 mmol/L (98-107); CO2 22 mmol/L (21-32); CREATININE 0.8 mg/dL (0.55-1.3); GLUCOSE,RANDOM 167 mg/dL (74-106); LIPASE 1243 U/L (73-393); POTASSIUM 3.4 mmol/L (3.5-5.1); SGOT/AST 19 U/L (15-37); SGPT/ALT 24 U/L (13-61); SODIUM 142 mmol/L (136-145); TOT PROT 6.2 g/dl (6.4-8.2)
[2018-06-23] MEDS: LIPASE/PROTEASE/AMYLASE 36,000 UNIT CAPSULE PO SCH ×3 (08:59→17:35)
[2018-06-23] MEDS: THIAMINE HCL 100 MG TABLET (FP) PO SCH (10:30)
[2018-06-23] MEDS: FOLIC ACID 1 MG TABLET (FP) PO SCH (10:30)
[2018-06-23] MEDS: FERROUS SO4 325 MG TABLET (FP) PO SCH (10:30)
[2018-06-23] MEDS: ASPIRIN 81 MG CHEWABLE TABLETS PO SCH (10:30)
[2018-06-23] MEDS: POTASSIUM CHLORIDE TABS 20 MEQ TABLET.ER (FP) PO SCH (10:30)
[2018-06-23] MEDS: amLODIPine BESYLATE 5 MG TABLET (FP) PO SCH (10:30)
[2018-06-23] MEDS: SODIUM CHLORIDE 1,000 ML IV SCH ×2 (10:30→21:29)
--- NOTE | 2018-06-23 13:51 | PN ---
GI Progress Note Subjective: tolerating diet well associated with elevated lipase ,denies abdominal pain nausea and vomiting - Objective Vital Signs: Vital Signs Temperature 98.5 F 06/23/18 08:50 Pulse Rate 52 L 06/23/18 08:50 Respiratory Rate 18 06/23/18 08:50 Blood Pressure 147/69 06/23/18 08:50 O2 Sat by Pulse Oximetry (%) 99 06/22/18 19:45 Constitutional: Well Nourished Eyes: Yes: Conjunctiva Clear HENT: Yes: Atraumatic Neck: Yes: Supple Cardiovascular: Yes: Regular Rate and Rhythm Respiratory: Yes: CTA Bilaterally ...Palpate: Yes: Soft. No: Firm/Rigid, Guarding, Hepatomegaly, Mass, Pulsatile Mass, Splenomegaly, Tenderness Labs: CBC, BMP 06/23/18 07:00 06/23/18 07:00 INR, PTT INR 0.92 (0.83-1.09) 06/17/18 03:17 Problem List - Problems (1) Alcoholic pancreatitis Assessment/Plan: resolving R> ok to discharge with pancreatic enzymes, doubt that the lipase will normalize because of chronic pancreatitis Code(s): K85.20 - ALCOHOL INDUCED ACUTE PANCREATITIS WITHOUT NECROSIS OR INFCT
--- NOTE | 2018-06-23 17:50 | PN ---
Progress Note, Physician - Current Medication List Current Medications: Active Medications Amlodipine Besylate (Norvasc -) 5 mg PO DAILY [facility] Last Admin: 06/23/18 10:30 Dose: 5 mg Aspirin (Asa -) 81 mg PO DAILY [facility] Last Admin: 06/23/18 10:30 Dose: 81 mg Atorvastatin Calcium (Lipitor -) 40 mg PO HS [facility] Last Admin: 06/22/18 21:22 Dose: 40 mg Ferrous Sulfate (Feosol -) 325 mg PO DAILY [facility] Last Admin: 06/23/18 10:30 Dose: 325 mg Folic Acid (Folic Acid -) 1 mg PO DAILY [facility] Last Admin: 06/23/18 10:30 Dose: 1 mg Heparin Sodium (Porcine) (Heparin -) 5,000 unit SQ TID [facility] Last Admin: 06/23/18 13:50 Dose: 5,000 unit Sodium Chloride (Normal Saline -) 1,000 mls @ 100 mls/hr IV ASDIR [facility] Last Admin: 06/23/18 10:30 Dose: 100 mls/hr Ondansetron HCl (Zofran Injection) 4 mg IVPUSH Q6H PRN PRN Reason: NAUSEA AND/OR VOMITING Pancrelipase (Creon Dr 36,000 Units Capsule) 1 cap PO TIDCM [facility] Last Admin: 06/23/18 17:35 Dose: 1 cap Potassium Chloride (K-Dur -) 20 meq PO DAILY [facility] Last Admin: 06/23/18 10:30 Dose: 20 meq Thiamine HCl (Vitamin B1 -) 100 mg PO DAILY [facility] Last Admin: 06/23/18 10:30 Dose: 100 mg - Objective Vital Signs: Vital Signs Temperature 97.7 F 06/23/18 15:31 Pulse Rate 95 H 06/23/18 15:31 Respiratory Rate 18 06/23/18 15:31 Blood Pressure 145/77 06/23/18 15:31 O2 Sat by Pulse Oximetry (%) 99 06/22/18 19:45 Constitutional: Yes: Thin Neck: Yes: WNL, Supple Cardiovascular: Yes: WNL, Regular Rate and Rhythm Respiratory: Yes: WNL, Regular, CTA Bilaterally Gastrointestinal: Yes: WNL, Normal Bowel Sounds, Soft Labs: CBC, BMP 06/23/18 07:00 06/23/18 07:00 INR, PTT INR 0.92 (0.83-1.09) 06/17/18 03:17 Problem List - Problems (1) Alcoholic pancreatitis Assessment/Plan: Lipase slighty increasing Probably due to chronic pancreatitis from chronic etoh abuse Cont creon Code(s): K85.20 - ALCOHOL INDUCED ACUTE PANCREATITIS WITHOUT NECROSIS OR INFCT (2) Anemia Assessment/Plan: Cont feso4 Code(s): D64.9 - ANEMIA, UNSPECIFIED (3) HLD (hyperlipidemia) Assessment/Plan: Cont lipitor Code(s): E78.5 - HYPERLIPIDEMIA, UNSPECIFIED Qualifiers: Hyperlipidemia type: pure hypercholesterolemia Qualified Code(s): E78.00 - Pure hypercholesterolemia, unspecified; E78.0 - Pure hypercholesterolemia (4) HTN (hypertension) Assessment/Plan: Cont antihypertenisves BP stable Code(s): I10 - ESSENTIAL (PRIMARY) HYPERTENSION (5) Malnutrition Assessment/Plan: BMI 17.2 Due to ETOH abuse Code(s): E46 - UNSPECIFIED PROTEIN-CALORIE MALNUTRITION (6) Alcohol dependence with uncomplicated intoxication Assessment/Plan: Long d/w pt about need to stop drinking etoh Code(s): F10.220 - ALCOHOL DEPENDENCE WITH INTOXICATION, UNCOMPLICATED (7) Nicotine dependence Assessment/Plan: Cont nicoderm Code(s): F17.200 - NICOTINE DEPENDENCE, UNSPECIFIED, UNCOMPLICATED Qualifiers: Nicotine product type: cigarettes Substance use status: uncomplicated Qualified Code(s): F17.210 - Nicotine dependence, cigarettes, uncomplicated (8) COPD (chronic obstructive pulmonary disease) Code(s): J44.9 - CHRONIC OBSTRUCTIVE PULMONARY DISEASE, UNSPECIFIED
[2018-06-23] MEDS: ATORVASTATIN CA 40 MG TABLET (FP) PO SCH (21:27)
[2018-06-24] MEDS: HEPARIN NA (PORCINE) 5,000 UNITS/ML 1ML VIAL SQ SCH (06:05)
[2018-06-24] MEDS: SODIUM CHLORIDE 1,000 ML IV SCH ×3 (07:52→17:55)
[2018-06-24] MEDS ORDERED: PT OWN MED DRAWER 7, Y5N ONE ×3 (08:22→17:48)
[2018-06-24] MEDS: LIPASE/PROTEASE/AMYLASE 36,000 UNIT CAPSULE PO SCH ×3 (08:24→17:52)
[2018-06-24] MEDS: ASPIRIN 81 MG CHEWABLE TABLETS PO SCH (09:58)
[2018-06-24] MEDS: FOLIC ACID 1 MG TABLET (FP) PO SCH (09:58)
[2018-06-24] MEDS: FERROUS SO4 325 MG TABLET (FP) PO SCH (09:58)
[2018-06-24] MEDS: THIAMINE HCL 100 MG TABLET (FP) PO SCH (09:58)
[2018-06-24] MEDS: POTASSIUM CHLORIDE TABS 20 MEQ TABLET.ER (FP) PO SCH (09:58)
[2018-06-24] MEDS: amLODIPine BESYLATE 5 MG TABLET (FP) PO SCH (09:58)
[2018-06-24 15:52] LABS: BASO % 0.3 % (0-2.0); EOS % 1.4 % (0-4.5); HEMATOCRIT 28.9 % (32.4-45.2); HEMOGLOBIN 9.4 GM/dL (10.7-15.3); LYMPH % 41.9 % (8-40); MCH 33.6 pg (25.7-33.7); MCHC 32.5 g/dl (32.0-36.0); MEAN CELL VOLUME 103.2 fl (80-96); MONO % 10.2 % (3.8-10.2); NEUT % 46.2 % (42.8-82.8); PLATELET COUNT 236 K/MM3 (134-434); RDW 15.4 % (11.6-15.6); WHITE BLOOD COUNT 5.5 K/mm3 (4.0-10.0)
[2018-06-24 16:08] LABS: ALBUMIN 3.4 g/dl (3.4-5.0); ALK PHOS 95 U/L (45-117); AMYLASE 205 U/L (25-115); ANION GAP 7 MMOL/L (8-16); BILIRUBIN,TOTAL 0.2 mg/dL (0.2-1); BLOOD UREA NITROGEN 10 mg/dL (7-18); CALCIUM 9.1 mg/dL (8.5-10.1); CHLORIDE 116 mmol/L (98-107); CO2 21 mmol/L (21-32); CREATININE 0.9 mg/dL (0.55-1.3); GLUCOSE,RANDOM 129 mg/dL (74-106); LIPASE 1521 U/L (73-393); POTASSIUM 5.8 mmol/L (3.5-5.1); SGOT/AST 22 U/L (15-37); SGPT/ALT 23 U/L (13-61); SODIUM 144 mmol/L (136-145); TOT PROT 6.8 g/dl (6.4-8.2)
[2018-06-24] MEDS ORDERED: SODIUM POLYSTYRENE SULFONATE 15 GM/60 ML BOTTLE PO ONE (18:30)
--- NOTE | 2018-06-24 19:36 | PN ---
Progress Note, Physician - Current Medication List Current Medications: Active Medications Amlodipine Besylate (Norvasc -) 5 mg PO DAILY [facility] Last Admin: 06/24/18 09:58 Dose: 5 mg Aspirin (Asa -) 81 mg PO DAILY [facility] Last Admin: 06/24/18 09:58 Dose: 81 mg Atorvastatin Calcium (Lipitor -) 40 mg PO HS [facility] Last Admin: 06/23/18 21:27 Dose: 40 mg Ferrous Sulfate (Feosol -) 325 mg PO DAILY [facility] Last Admin: 06/24/18 09:58 Dose: 325 mg Folic Acid (Folic Acid -) 1 mg PO DAILY [facility] Last Admin: 06/24/18 09:58 Dose: 1 mg Sodium Chloride (Normal Saline -) 1,000 mls @ 100 mls/hr IV ASDIR [facility] Last Admin: 06/24/18 17:55 Dose: Not Given Ondansetron HCl (Zofran Injection) 4 mg IVPUSH Q6H PRN PRN Reason: NAUSEA AND/OR VOMITING Pancrelipase (Karishma Dr 36,000 Units Capsule) 1 cap PO TIDCM [facility] Last Admin: 06/24/18 17:52 Dose: 1 cap Potassium Chloride (K-Dur -) 20 meq PO DAILY [facility] Last Admin: 06/24/18 09:58 Dose: 20 meq Thiamine HCl (Vitamin B1 -) 100 mg PO DAILY [facility] Last Admin: 06/24/18 09:58 Dose: 100 mg - Objective Vital Signs: Vital Signs Temperature 98.5 F 06/24/18 15:46 Pulse Rate 56 L 06/24/18 15:46 Respiratory Rate 18 06/24/18 15:46 Blood Pressure 144/86 06/24/18 15:46 O2 Sat by Pulse Oximetry (%) 99 06/23/18 21:00 Constitutional: Yes: Thin Neck: Yes: WNL, Supple Cardiovascular: Yes: WNL, Regular Rate and Rhythm Respiratory: Yes: WNL, Regular, CTA Bilaterally Gastrointestinal: Yes: WNL, Normal Bowel Sounds, Soft Labs: CBC, BMP 06/24/18 15:28 06/24/18 15:28 INR, PTT INR 0.92 (0.83-1.09) 06/17/18 03:17 Problem List - Problems (1) Alcoholic pancreatitis Assessment/Plan: Slowly improving Cont creon Long d/w pt about need to etoh abstience Probable chronic panreatitis Code(s): K85.20 - ALCOHOL INDUCED ACUTE PANCREATITIS WITHOUT NECROSIS OR INFCT (2) Anemia Code(s): D64.9 - ANEMIA, UNSPECIFIED (3) COPD (chronic obstructive pulmonary disease) Code(s): J44.9 - CHRONIC OBSTRUCTIVE PULMONARY DISEASE, UNSPECIFIED (4) HTN (hypertension) Assessment/Plan: Cont antihypertenisves BP stable Code(s): I10 - ESSENTIAL (PRIMARY) HYPERTENSION (5) Nicotine dependence Assessment/Plan: Cont nicoderm Code(s): F17.200 - NICOTINE DEPENDENCE, UNSPECIFIED, UNCOMPLICATED Qualifiers: Nicotine product type: cigarettes Substance use status: uncomplicated Qualified Code(s): F17.210 - Nicotine dependence, cigarettes, uncomplicated (6) Malnutrition Assessment/Plan: BMI 17.2 Due to ETOH abuse Code(s): E46 - UNSPECIFIED PROTEIN-CALORIE MALNUTRITION (7) HLD (hyperlipidemia) Code(s): E78.5 - HYPERLIPIDEMIA, UNSPECIFIED Qualifiers: Hyperlipidemia type: pure hypercholesterolemia Qualified Code(s): E78.00 - Pure hypercholesterolemia, unspecified; E78.0 - Pure hypercholesterolemia (8) Alcohol dependence with uncomplicated intoxication Assessment/Plan: Long d/w pt about need to stop drinking etoh Code(s): F10.220 - ALCOHOL DEPENDENCE WITH INTOXICATION, UNCOMPLICATED
[2018-06-24] MEDS: NICOTINE 14 MG/24 HOURS TOPICAL PATCH TD SCH (20:15)
[2018-06-24] MEDS: SERTRALINE HCL 25 MG TABLET (FP) PO SCH (20:28)
[2018-06-24] MEDS: ATORVASTATIN CA 40 MG TABLET (FP) PO SCH (21:44)
[2018-06-25 07:22] LABS: BASO % 0.4 % (0-2.0); EOS % 1.4 % (0-4.5); HEMATOCRIT 27.1 % (32.4-45.2); HEMOGLOBIN 8.8 GM/dL (10.7-15.3); MCH 33.2 pg (25.7-33.7); MCHC 32.5 g/dl (32.0-36.0); MEAN CELL VOLUME 102.1 fl (80-96); MEAN PLT VOLUME 9.1 fl (7.5-11.1); MONO % 12.8 % (3.8-10.2); NEUT % 49.4 % (42.8-82.8); PLATELET COUNT 248 K/MM3 (134-434); RBC 2.66 M/mm3 (3.60-5.2); RDW 15.1 % (11.6-15.6); WHITE BLOOD COUNT 5.5 K/mm3 (4.0-10.0)
[2018-06-25 07:43] LABS: ALK PHOS 82 U/L (45-117); AMYLASE 160 U/L (25-115); ANION GAP 7 MMOL/L (8-16); BILIRUBIN,TOTAL 0.2 mg/dL (0.2-1); BLOOD UREA NITROGEN 9 mg/dL (7-18); CALCIUM 9.1 mg/dL (8.5-10.1); CHLORIDE 110 mmol/L (98-107); CO2 23 mmol/L (21-32); CREATININE 0.7 mg/dL (0.55-1.3); GLUCOSE,RANDOM 145 mg/dL (74-106); LIPASE 1143 U/L (73-393); POTASSIUM 4.8 mmol/L (3.5-5.1); SGOT/AST 15 U/L (15-37); SGPT/ALT 21 U/L (13-61); SODIUM 140 mmol/L (136-145); TOT PROT 6.3 g/dl (6.4-8.2)
[2018-06-25] MEDS: LIPASE/PROTEASE/AMYLASE 36,000 UNIT CAPSULE PO SCH ×2 (08:30→12:29)
[2018-06-25] MEDS ORDERED: PT OWN MED DRAWER 7, Y5N ONE (10:22)
[2018-06-25] MEDS: FOLIC ACID 1 MG TABLET (FP) PO SCH (10:25)
[2018-06-25] MEDS: FERROUS SO4 325 MG TABLET (FP) PO SCH (10:25)
[2018-06-25] MEDS: amLODIPine BESYLATE 5 MG TABLET (FP) PO SCH (10:25)
[2018-06-25] MEDS: THIAMINE HCL 100 MG TABLET (FP) PO SCH (10:26)
[2018-06-25] MEDS: SERTRALINE HCL 25 MG TABLET (FP) PO SCH (10:26)
[2018-06-25] MEDS: POTASSIUM CHLORIDE TABS 20 MEQ TABLET.ER (FP) PO SCH ×2 (10:26→10:29)
[2018-06-25] MEDS: ASPIRIN 81 MG CHEWABLE TABLETS PO SCH (10:26)
[2018-06-25] MEDS: NICOTINE 14 MG/24 HOURS TOPICAL PATCH TD SCH (10:27)
[2018-06-25] MEDS: SODIUM CHLORIDE 1,000 ML IV SCH (12:25)
[2018-06-25 14:35] VITALS: BP 145/84; PULSE 113; TEMP 98.4
--- NOTE | 2018-07-02 02:57 | DS ---
Physical Examination Vital Signs: Vital Signs Temperature 98.4 F 06/25/18 14:34 Pulse Rate 113 H 06/25/18 14:34 Respiratory Rate 18 06/25/18 14:34 Blood Pressure 145/84 06/25/18 14:34 O2 Sat by Pulse Oximetry (%) 96 06/25/18 09:00 Constitutional: Yes: Thin Cardiovascular: Yes: WNL, Regular Rate and Rhythm Respiratory: Yes: WNL, Regular, CTA Bilaterally Gastrointestinal: Yes: WNL, Normal Bowel Sounds, Soft Labs: CBC, BMP 06/25/18 06:40 06/25/18 06:40 Discharge Summary Reason For Visit: ACUTE PACREATITIS Anemia HTN HLD Malnutrition ETOH abuse Nicotine use Hospital Course: Pt is a 57 y/o female presented to [facility] ER complaining of abdominal pain x2 days. Pain was localized to epigastric region and LUQ with radiation to left flank and back. Pt also had vomiting and diarrhea. Pt w/ h/o etoh use and last drank 2 days prior to admission however was not found to be in acute withdrawal. Pt was found to have elevated lipase/amylase and dx'ed w/ acute pancreatitis. Pt was also followed by GI and given IVF and diet was slowly elevated. Pt had fluctuating amylas/lipase and was started on creon. Pt was told she had chronic pancreatitis due to etoh abuse. Pt was strongly advised that she cannot drink etoh anymore and she is aware of future complications of pancreas is she does including Condition: Good - Instructions Diet, Activity, Other Instructions: 2 gram sodium diet Patient has been told she absolutely cannot have any alcohol any more See Dr Kenneth Alvarez in 1 week Disposition: HOME - Home Medications Comprehensive Discharge Medication List: Ambulatory Orders Ferrous Sulfate 325 mg PO DAILY 01/31/17 Furosemide [Lasix -] 20 mg PO BID@0600,1400 #60 tablet 01/12/18 Amlodipine Besylate [Norvasc -] 5 mg PO DAILY 05/01/18 Aspirin [ASA -] 81 mg PO DAILY #30 tab.chew 05/03/18 Folic Acid - 1 mg PO DAILY #30 tablet 05/03/18 Potassium Chloride 20 meq PO DAILY #30 tablet.er 05/03/18 Thiamine HCl [Vitamin B1 -] 100 mg PO DAILY #30 tablet 05/03/18 Atorvastatin Ca [Lipitor] 40 mg PO HS 06/17/18 Lipase/Protease/Amylase [Karishma Chacon 36,000 Units Capsule] 1 cap PO TIDCM #90 capsule. 06/25/18 Nicotine Patch [Nicoderm Patch -] 14 mg TD DAILY #30 patch 06/25/18 Sertraline HCl [Zoloft -] 25 mg PO DAILY #30 tablet 06/25/18
== END 2018-06-25 15:07 | disposition home or self-care (01) | DRG 775 ==
LOC: JER 02:34 → JERBED 04:44 → J8W 14:09
PROVIDERS: ADMIT Internal Medicine; ATTEND Internal Medicine
DX: F10.220 Alcohol dependence with intoxication, uncomplicated (principal); K85.20 Alcohol induced acute pancreatitis without necrosis or infection; R64 Cachexia; D64.9 Anemia, unspecified; J44.9 Chronic obstructive pulmonary disease, unspecified; E78.5 Hyperlipidemia, unspecified; F17.210 Nicotine dependence, cigarettes, uncomplicated; I10 Essential (primary) hypertension; E87.1 Hypo-osmolality and hyponatremia; E46 Unspecified protein-calorie malnutrition; Z68.1 Body mass index [BMI] 19.9 or less, adult; K70.10 Alcoholic hepatitis without ascites; I34.0 Nonrheumatic mitral (valve) insufficiency; R00.0 Tachycardia, unspecified; N20.0 Calculus of kidney; F41.8 Other specified anxiety disorders; K21.9 Gastro-esophageal reflux disease without esophagitis; I25.10 Atherosclerotic heart disease of native coronary artery without angina pectoris; Z95.1 Presence of aortocoronary bypass graft
CPT/HCPCS: 36415; 71045-TC-FY; 74176-TC; 80053; 80307; 82150; 83690; 83735; 84100; 85025; 85610; 93005; 93010; 99284-25; J1644; J7030

== ENCOUNTER 2019-02-20 12:46 | Inpatient (IN) | payer OTHER ==
--- NOTE | 2019-02-20 12:57 | PDOC ---
Rapid Medical Evaluation Time Seen by Provider: 02/20/19 12:56 Medical Evaluation: Allergies Allergy/AdvReac Type Severity Reaction Status Date / Time No Known Allergies Allergy Verified 06/17/18 02:54 02/20/19 12:56 I have performed a brief in-person evaluation of this patient. The patient presents with a chief complaint of: L flank pain radiating to lower abd and epigastrium x 1 week, vomited few days ago. No change in BM, dysuria, f/ c. H/o ETOH associated pancreatitis, HTN, HLD, smoker, ETOH abuse Pertinent physical exam findings:valeria uncomfortable w/ poorly localized ttp to abd I have ordered the following:labs The patient will proceed to the ED for further evaluation. 02/20/19 13:10 Discharge Disposition - Diagnosis Abdominal pain Qualifiers: Abdominal location: unspecified location Qualified Code(s): R10.9 - Unspecified abdominal pain - Referrals - Patient Instructions - Post Discharge Activity
--- NOTE | 2019-02-20 13:58 | PDOC ---
History of Present Illness - General Chief Complaint: Pain, Acute Stated Complaint: ABD PAIN Time Seen by Provider: 02/20/19 12:56 - History of Present Illness Initial Comments: 02/20/19 13:59 58 year old woman with a history of HTN, MVR, CAD /p CABG, etoh abuse, etoh pancreatitis, COPD, anemia, anxiety and depression who presents with 2 weeks of L flank pain that is pressure like and intermittent, rated 10/10 at max. She reports one episode of nbnb emesis 1 week ago and radiation of the pain to the L groin. She reports taking gasX and naproxen with minimal relief. She denies any fever, chest pain ,shortness of breath, dysuria, hematuria, diarrhea or constipation. ROS GENERAL/CONSTITUTIONAL: No fever or chills. No weakness. HEAD, EYES, EARS, NOSE AND THROAT: No change in vision. No ear pain or discharge. No sore throat. CARDIOVASCULAR: No chest pain or shortness of breath RESPIRATORY: No cough, wheezing, or hemoptysis. GASTROINTESTINAL: No diarrhea or constipation. GENITOURINARY: No dysuria, frequency, or change in urination. MUSCULOSKELETAL: No joint or muscle swelling or pain. No neck or back pain. SKIN: No rash NEUROLOGIC: No headache, vertigo, loss of consciousness, or change in strength/ sensation. PE GENERAL: Awake, alert, and fully oriented, in no acute distress HEAD: No signs of trauma, normocephalic, atraumatic EYES: EOMI, sclera anicteric, conjunctiva clear ENT: oropharynx clear without exudates. Moist mucosa NECK: Normal ROM, supple LUNGS: No distress, speaks full sentences, clear to auscultation bilaterally HEART: Regular rate and rhythm, normal S1 and S2, no murmurs, rubs or gallops, peripheral pulses normal and equal bilaterally. ABDOMEN: Soft, slight LLQ tenderness. No guarding, no rebound. No masses BACK: L CVA tenderness EXTREMITIES : Normal inspection, Normal range of motion, no edema. No clubbing or cyanosis. NEUROLOGICAL: Cranial nerves II through XII grossly intact. Normal speech, no focal sensorimotor deficits SKIN: Warm, Dry, normal turgor, no rashes or lesions noted MDM 58 year old woman with a history of HTN, MVR, CAD /p CABG, etoh abuse, etoh pancreatitis, COPD, anemia, anxiety and depression who presents with 2 weeks of L flank pain that is pressure like and intermittent, rated 10/10 at max. DDX including but not limited to: pyelo vs nephrolithiasis r/o AAA W/U: - cbc, cmp, ua, CTAP TX: - ivf, tylenol ED Course: lipase 874 CT: acute pancreatitis, small area of necrosis plan for admission patient npo with maintainence fluids patient agrees to plan, stable at bedside, resting Inez Garrison, PGY2 Emergency Medicine Past History - Past Medical History Allergies/Adverse Reactions: Allergies Allergy/AdvReac Type Severity Reaction Status Date / Time No Known Allergies Allergy Verified 02/20/19 12:58 Home Medications: Ambulatory Orders Ferrous Sulfate 325 mg PO DAILY 01/31/17 Furosemide [Lasix -] 20 mg PO BID@0600,1400 #60 tablet 01/12/18 Amlodipine Besylate [Norvasc -] 5 mg PO DAILY 05/01/18 Aspirin [ASA -] 81 mg PO DAILY #30 tab.chew 05/03/18 Folic Acid - 1 mg PO DAILY #30 tablet 05/03/18 Potassium Chloride 20 meq PO DAILY #30 tablet.er 05/03/18 Thiamine HCl [Vitamin B1 -] 100 mg PO DAILY #30 tablet 05/03/18 Atorvastatin Ca [Lipitor] 40 mg PO HS 06/17/18 Lipase/Protease/Amylase [Karishma Chacon 36,000 Units Capsule] 1 cap PO TIDCM #90 capsule. 06/25/18 Nicotine Patch [Nicoderm Patch -] 14 mg TD DAILY #30 patch 06/25/18 Sertraline HCl [Zoloft -] 25 mg PO DAILY #30 tablet 06/25/18 Anemia: No Cardiac Disorders: Yes (mitral valve repair) COPD: No DVT: No GI Disorders: Yes (GERD, PANCREATITIS) HTN: Yes Kidney Stones: No Psychiatric Problems: Yes (panic attacks) Seizures: Yes (04/10) Other medical history: pancreatitis - Surgical History Cardiac Surgery: Yes (mitral valve repair) Neurologic Surgery: Yes (S/P FALL R craniotomy in 04/10) - Reproductive History PID: No - Immunization History Immunization Up to Date: Yes - Suicide/Smoking/Psychosocial Hx Smoking Status: Yes Smoking History: Current every day smoker Have you smoked in the past 12 months: Yes Number of Cigarettes Smoked Daily: 20 Cigars Per Day: 0 Information on smoking cessation initiated: No 'Breaking Loose' booklet given: 06/17/18 Hx Alcohol Use: Yes Drug/Substance Use Hx: Yes Substance Use Type: Alcohol Hx Substance Use Treatment: Yes *Physical Exam - Vital Signs Last Vital Signs Temp Pulse Resp BP Pulse Ox 98.2 F 68 24 H 144/93 100 02/20/19 12:58 02/20/19 12:58 02/20/19 12:58 02/20/19 12:58 02/20/19 12:58 ED Treatment Course - LABORATORY CBC & Chemistry Diagram: 02/27/19 06:45 02/27/19 06:45 *DC/Admit/Observation/Transfer Diagnosis at time of Disposition: Acute pancreatitis, Pancreatic necrosis - Discharge Dispostion Disposition: TRANSFER ACUTE CARE/OTHER HOSP Condition at time of disposition: Stable Decision to Admit order: Yes - Referrals - Patient Instructions - Post Discharge Activity
[2019-02-20 14:31] LABS: BASO % 0.5 % (0-2.0); EOS % 3.1 % (0-4.5); HEMATOCRIT 28.9 % (32.4-45.2); HEMOGLOBIN 9.6 GM/dL (10.7-15.3); LYMPH % 33.7 % (8-40); MCH 31.8 pg (25.7-33.7); MCHC 33.2 g/dl (32.0-36.0); MEAN CELL VOLUME 95.6 fl (80-96); MEAN PLT VOLUME 8.7 fl (7.5-11.1); MONO % 7.8 % (3.8-10.2); NEUT % 54.9 % (42.8-82.8); PLATELET COUNT 377 K/MM3 (134-434); RBC 3.02 M/mm3 (3.60-5.2); RDW 14.3 % (11.6-15.6); WHITE BLOOD COUNT 9.5 K/mm3 (4.0-10.0)
[2019-02-20] MEDS ORDERED: ACETAMINOPHEN 325 MG TABLET (FP) PO ONE (14:48)
[2019-02-20 15:04] LABS: ALBUMIN 3.1 g/dl (3.4-5.0); BILIRUBIN,TOTAL 0.4 mg/dL (0.2-1); BLOOD UREA NITROGEN 12.7 mg/dL (7-18); CALCIUM 8.9 mg/dL (8.5-10.1); CREATININE 0.7 mg/dL (0.55-1.3); POTASSIUM 4.4 mmol/L (3.5-5.1); TOT PROT 7.1 g/dl (6.4-8.2)
[2019-02-20] MEDS ORDERED: FOLIC ACID INJECTION - 1 MG, THIAMINE HCL 100 MG, MULTIVIT INJECTION ADULT 10 ML in SOD... IVPB ONE (15:06)
[2019-02-20] MEDS ORDERED: ACETAMINOPHEN 325 MG TABLET (FP) ONE (15:20)
[2019-02-20] MEDS ORDERED: ACETAMINOPHEN 1000 MG/100 ML VIAL (NON FORMULARY) IVPB ONE (15:27)
[2019-02-20] MEDS ORDERED: ACETAMINOPHEN INJECTION 100 ML IVPB ONE ×2 (15:28→16:24)
[2019-02-20] MEDS ORDERED: LACTATED RINGERS SOLUTION 1,000 ML/1,000 ML INFUS.BAG IV SCH (15:30)
--- NOTE | 2019-02-20 15:47 | PDOC ---
Documentation entered by Lexii Rose SCRIBE, acting as scribe for Niranjan Reyes MD. Nrianjan Reyes MD: This documentation has been prepared by the Rose dominique Adrianna, SCRIBE, under my direction and personally reviewed by me in its entirety. I confirm that the documentation accurately reflects all work, treatment, procedures, and medical decision making performed by me. Attending Attestation - Resident Resident Name: Inez Garrison - HPI HPI: 58 Y F, with PMH of EtOH abuse, daily tobacco use, HTN, MVR, CAD (s/p CABG), anemia, COPD, anxiety, depression, and pancreatitis, presents with two weeks of flank pain. Patient endorses left flank pain that radiates to lower abdomen and groin. Patient reports one episode of NBNB vomit last week. Allergies: NKA, NKDA Surgical History: Mitral valve repair, CABG, craniotomy Social History: EtOH abuse, daily tobacco use (10 cigarettes per day). Denies illicit drug use. PCP: Dr. Kenneth Alvarez - Physicial Exam PE: 02/20/19 15:44 Patient is awake and alert, well-nourished, in mild distress Normocephalic and atraumatic PERRLA, EOMI, no scleral icterus Conjunctiva are pale mm-dry cta rrr Abdomen is soft, nondistended, + llq/luq/l cva ttp, no g/r - Medical Decision Making 02/20/19 15:48 Patient is a 58-year-old female with history of alcohol abuse, who presents with atraumatic left-sided abdominal and flank pain. Differential diagnosis includes nephrolithiasis versus colitis versus pancreatitis versus pyelonephritis. patient appears dehydrated. We will resuscitated with IV fluids. Will obtain CBC/CMP/UA. Will obtain CT of abdomen and pelvis with IV contrast. Will reassess.
[2019-02-20] MEDS: SODIUM CHLORIDE 1,000 ML IV SCH ×3 (15:50→23:24)
--- NOTE | 2019-02-20 17:44 | EKG ---
Test Reason : Blood Pressure : / mmHG Vent. Rate : 056 BPM Atrial Rate : 056 BPM P-R Int : 130 ms QRS Dur : 070 ms QT Int : 492 ms P-R-T Axes : -20 036 047 degrees QTc Int : 474 ms POOR DATA QUALITY, INTERPRETATION MAY BE ADVERSELY AFFECTED SINUS BRADYCARDIA MODERATE VOLTAGE CRITERIA FOR LVH, MAY BE NORMAL VARIANT CANNOT RULE OUT SEPTAL INFARCT , AGE UNDETERMINED ABNORMAL ECG WHEN COMPARED WITH ECG OF 17-JUN-2018 03:34, VENT. RATE HAS DECREASED BY 57 BPM MINIMAL CRITERIA FOR SEPTAL INFARCT ARE NOW PRESENT T WAVE INVERSION NOW EVIDENT IN ANTERIOR LEADS Confirmed by IRMA VILLA, LIZZETH ([id number]) on 02/20/2019 5:43:48 PM Referred By: Confirmed By:LIZZETH SOLIS MD
[2019-02-20 19:45] LABS: MAGNESIUM 1.8 mg/dL (1.8-2.4); PHOSPHOROUS 4.2 mg/dL (2.5-4.9)
[2019-02-20] MEDS ORDERED: ACETAMINOPHEN 325 MG TABLET (FP) PO PRN (20:45)
--- NOTE | 2019-02-20 20:49 | HP ---
CHIEF COMPLAINT: Abdomen pain PCP: Dr. Tamayo HISTORY OF PRESENT ILLNESS: 58 year old female with PMHx of HTN, MVR, CAD ( S/p CABG), Anemia, COPD anxiety, depression and ETOH abuse with pancreatitis, and daily tobacco use. Patient arrived to ED with complain of left flank pain radiating to left lower abdomen and epigastric area for 21/2 weeks, pain in intermittent when occurs ( pain scale 10/10), currently no N/V, had one episode of vomiting last week. Member also complain of poor appetite. As per patient took GASx and Naporoxen without relief. Last alcohol beverage patient had was last (2 full glass of vodka). Member currently denies fever, CP, SOB, dysuria, hematuria, diarrhea, and constipation. ER course was notable for: (1) (2) (3) Recent Travel: no PAST MEDICAL HISTORY: HTN, MVR, CAD ( S/p CABG), Anemia, COPD anxiety, depression and ETOH abuse with pancreatitis, and daily tobacco use. PAST SURGICAL HISTORY: Mitral valve repair, CABG, craniotomy Social History: Smoking:smoke 1 pack a day Alcohol:2 drinks week (Vodka) Drugs:denies Family History: Mother ( HTN, DM), Father ( [place]) Allergies: No Known Allergies Allergy (Verified 02/20/19 12:58) HOME MEDICATIONS: Home Medications Medication Instructions Recorded Ferrous Sulfate 325 mg PO DAILY 01/31/17 Furosemide [Lasix -] 20 mg PO BID@0600,1400 #60 tablet 01/12/18 Amlodipine Besylate [Norvasc -] 5 mg PO DAILY 05/01/18 Aspirin [ASA -] 81 mg PO DAILY #30 tab.chew 05/03/18 Folic Acid - 1 mg PO DAILY #30 tablet 05/03/18 Potassium Chloride 20 meq PO DAILY #30 tablet.er 05/03/18 Thiamine HCl [Vitamin B1 -] 100 mg PO DAILY #30 tablet 05/03/18 Atorvastatin Ca [Lipitor] 40 mg PO HS 06/17/18 Lipase/Protease/Amylase [Karishma Chacon 1 cap PO TIDCM #90 capsule. 06/25/18 36,000 Units Capsule] Nicotine Patch [Nicoderm Patch -] 14 mg TD DAILY #30 patch 06/25/18 Sertraline HCl [Zoloft -] 25 mg PO DAILY #30 tablet 06/25/18 REVIEW OF SYSTEMS CONSTITUTIONAL: + loss of appetite Absent: fever, chills, diaphoresis, generalized weakness, malaise HEENT: Absent: rhinorrhea, throat pain, throat swelling, difficulty swallowing , mouth swelling, ear pain, eye pain CARDIOVASCULAR: Absent: chest pain, syncope, palpitations, peripheral edema RESPIRATORY: Absent: cough, shortness of breath, dyspnea with exertion, orthopnea, wheezing GASTROINTESTINAL: +abdominal pain ; Absent: diarrhea, constipation GENITOURINARY: Absent: dysuria, frequency, urgency, hesitancy, hematuria MUSCULOSKELETAL: Absent: myalgia, joint swelling, back pain, neck pain SKIN: Absent: rash, itching, pallor NEUROLOGIC: Absent: headache, focal weakness or paresthesias, dizziness, unsteady gait,mental status changes, bladder or bowel incontinence PSYCHIATRIC: Absent:suicidal or homicidal ideation, hallucinations. PHYSICAL EXAMINATION Vital Signs - 24 hr 02/20/19 02/20/19 12:58 17:54 Temperature 98.2 F Pulse Rate 68 Pulse Rate [ 65 Right Radial] Respiratory 24 H Rate Blood Pressure 144/93 Blood Pressure 162/87 [Left Arm] O2 Sat by Pulse 100 97 Oximetry (%) GENERAL: Awake, alert, and fully oriented, in no acute distress. HEENT: NC/AT, EOMI, PERRLA, LUNGS: Breath sounds equal, clear to auscultation bilaterally. No wheezes, and no crackles. HEART: Regular rate and rhythm, normal S1 and S2 without murmur, rub or gallop. ABDOMEN: Soft, slight LLQ tenderness. No guarding, no rebound. + L CVA tenderness MUSCULOSKELETAL: Normal range of motion at all joints. No bony deformities or tenderness. NEUROLOGICAL: Cranial nerves II-XII intact. Normal speech PSYCHIATRIC: Cooperative. Good eye contact. Appropriate mood and affect. SKIN: Warm, dry Laboratory Results - last 24 hr 02/20/19 02/20/19 02/20/19 14:15 14:15 14:15 WBC 9.5 RBC 3.02 L Hgb 9.6 L Hct 28.9 L MCV 95.6 MCH 31.8 MCHC 33.2 RDW 14.3 Plt Count 377 D MPV 8.7 Absolute Neuts (auto) 5.2 Neutrophils % 54.9 Lymphocytes % 33.7 Monocytes % 7.8 Eosinophils % 3.1 D Basophils % 0.5 Nucleated RBC % 0 Sodium 142 Potassium 4.4 Chloride 109 H Carbon Dioxide 25 Anion Gap 9 BUN 12.7 Creatinine 0.7 Est GFR (CKD-EPI)AfAm 111.47 Est GFR (CKD-EPI)NonAf 96.18 Random Glucose 80 Calcium 8.9 Total Bilirubin 0.4 AST 31 ALT 11 L Alkaline Phosphatase 97 Total Protein 7.1 Albumin 3.1 L Lipase 874 H ASSESSMENT/PLAN: 58 year old female with PMHx of HTN, MVR, CAD ( S/p CABG), Anemia, COPD anxiety , depression and ETOH abuse with pancreatitis, and daily tobacco use. Patient arrived to ED with complain of left flank pain radiating to left lower abdomen and epigastric area for 21/2 weeks, pain in intermittent when occurs ( pain scale 10/10), currently no N/V, had one episode of vomiting last week. Member also complain of poor appetite. Acute pancreatitis Pancreatitis necrosis Lipase: 874 CT ABD/ pelvis: recurrent acute pancreatitis in ED given : folic acid thiamine 1L IVPB, IV fluids, Tylenol - NPO - continue with IV fluids - Continue with thiamine/ folic acid IVPB - Continue with Creon 36,000 Units Capsule 1 cap PO TIDCM - follow up Dr. conner in AM #Anemia - Continue with Ferrous Sulfate 325 mg PO DAILY #HTN,HLD, CAD - continue with Furosemide 20 mg PO BID@0600,1400 - Continue with Amlodipine Besylate 5 mg PO DAILY - Continue with Atorvastatin Ca 40 mg PO HS # Depression - Continue with Sertraline HCl 25 mg PO DAILY Diet: NPO Hold PO medication until cleared DVT PPX: heparin Problem List - Problem (1) Acute pancreatitis Code(s): K85.90 - ACUTE PANCREATITIS WITHOUT NECROSIS OR INFECTION, UNSP (2) Pancreatic necrosis Code(s): K86.89 - OTHER SPECIFIED DISEASES OF PANCREAS (3) Alcohol dependence with uncomplicated intoxication Code(s): F10.220 - ALCOHOL DEPENDENCE WITH INTOXICATION, UNCOMPLICATED (4) Depression Code(s): F32.9 - MAJOR DEPRESSIVE DISORDER, SINGLE EPISODE, UNSPECIFIED (5) CAD (coronary artery disease) Code(s): I25.10 - ATHSCL HEART DISEASE OF [place] CORONARY ARTERY W/O ANG PCTRS (6) Anemia Code(s): D64.9 - ANEMIA, UNSPECIFIED (7) HLD (hyperlipidemia) Code(s): E78.5 - HYPERLIPIDEMIA, UNSPECIFIED Qualifiers: Hyperlipidemia type: pure hypercholesterolemia Qualified Code(s): E78.00 - Pure hypercholesterolemia, unspecified; E78.0 - Pure hypercholesterolemia (8) HTN (hypertension) Code(s): I10 - ESSENTIAL (PRIMARY) HYPERTENSION (9) Nicotine dependence Code(s): F17.200 - NICOTINE DEPENDENCE, UNSPECIFIED, UNCOMPLICATED Qualifiers: Nicotine product type: cigarettes Substance use status: uncomplicated Qualified Code(s): F17.210 - Nicotine dependence, cigarettes, uncomplicated Visit type - Emergency Visit Emergency Visit: Yes Care time: The patient presented to the Emergency Department on the above date and was hospitalized for further evaluation of their emergent condition. - New Patient This patient is new to me today: Yes Date on this admission: 02/20/19 - Critical Care Critical Care patient: No
[2019-02-20] MEDS: HEPARIN NA (PORCINE) 5,000 UNITS/ML 1ML VIAL SQ SCH (23:24)
[2019-02-21] MEDS ORDERED: PNEUMOC 13-VAL CONJ-DIP CRM/PF 0.5 ML DISP.SYRIN IM ONE (00:05)
[2019-02-21] MEDS ORDERED: GABAPENTIN 100 MG CAPSULE (FP) PO ONE ×2 (02:38→22:42)
[2019-02-21] MEDS: GABAPENTIN 100 MG CAPSULE (FP) PO SCH ×2 (06:38→15:05)
[2019-02-21] MEDS: SODIUM CHLORIDE 1,000 ML IV SCH ×3 (06:39→19:14)
[2019-02-21 07:45] LABS: HEMOGLOBIN 9.4 GM/dL (10.7-15.3); MCH 32.5 pg (25.7-33.7); MCHC 33.6 g/dl (32.0-36.0); MEAN CELL VOLUME 96.6 fl (80-96); MEAN PLT VOLUME 8.6 fl (7.5-11.1); PLATELET COUNT 321 K/MM3 (134-434); RDW 14.3 % (11.6-15.6)
[2019-02-21 07:55] LABS: BLOOD UREA NITROGEN 5.8 mg/dL (7-18); CALCIUM 8.7 mg/dL (8.5-10.1); CREATININE 0.5 mg/dL (0.55-1.3); POTASSIUM 3.3 mmol/L (3.5-5.1)
--- NOTE | 2019-02-21 08:29 | PN ---
Progress Note, Physician Chief Complaint: abdominal pain less today History of Present Illness: 58 year old female with PMHx of HTN, MVR, CAD ( S/p CABG), Anemia, COPD anxiety , depression and ETOH abuse with pancreatitis, and daily tobacco use. Patient arrived to ED with complain of left flank pain radiating to left lower abdomen and epigastric area for 2 1/2 weeks, pain in intermittent when occurs ( pain scale 10/10), currently no N/V, had one episode of vomiting last week, and decreased appetite. As per patient took GASx and Naporoxen without relief. Last alcohol beverage patient had was last (2 full glass of vodka). Currently denies fever, CP, SOB, dysuria, hematuria, diarrhea, and constipation. - Current Medication List Current Medications: Active Medications Acetaminophen (Tylenol -) 650 mg PO Q6H PRN PRN Reason: PAIN OR FEVER Gabapentin (Neurontin -) 100 mg PO TID [facility] Last Admin: 02/21/19 06:38 Dose: 100 mg Heparin Sodium (Porcine) (Heparin -) 5,000 unit SQ BID [facility] Last Admin: 02/20/19 23:24 Dose: 5,000 unit Sodium Chloride (Normal Saline -) 1,000 mls @ 0 mls/hr IV ASDIR [facility] Last Admin: 02/20/19 15:50 Dose: 1,000 mls/hr Sodium Chloride (Normal Saline -) 1,000 mls @ 150 mls/hr IV ASDIR [facility] Last Admin: 02/21/19 06:39 Dose: 150 mls/hr Pneumococcal 13-Valent Conj Vacc (Prevnar 13 Syringe -) 0.5 ml IM .ONCE ONE Stop: 02/21/19 00:06 - Objective Vital Signs: Vital Signs Temperature 98.6 F 02/21/19 05:00 Pulse Rate 55 L 02/21/19 05:00 Respiratory Rate 18 02/21/19 05:00 Blood Pressure 156/86 02/21/19 05:00 O2 Sat by Pulse Oximetry (%) 99 02/20/19 23:30 Constitutional: Yes: No Distress, Calm, Thin Eyes: Yes: WNL, Conjunctiva Clear, EOM Intact HENT: Yes: WNL, Atraumatic, Normocephalic Neck: Yes: WNL, Supple, Trachea Midline Cardiovascular: Yes: WNL, Regular Rate and Rhythm Respiratory: Yes: WNL, Regular, CTA Bilaterally Gastrointestinal: Yes: Normal Bowel Sounds, Soft, Tenderness (to LLQ) ...Rectal Exam: Yes: Deferred Genitourinary: Yes: WNL Breast(s): Yes: WNL Musculoskeletal: Yes: WNL Extremities: Yes: WNL Edema: No Peripheral Pulses WNL: Yes Integumentary: Yes: WNL Neurological: Yes: WNL, Alert, Oriented ...Motor Strength: WNL Psychiatric: Yes: WNL, Alert, Oriented Labs: CBC, BMP 02/21/19 06:28 02/21/19 06:28 - ....Imaging Cat Scan: Report Reviewed (AB/Pelvis: Findings are noted consistent with recurrent acute pancreatitis.) Problem List - Problems (1) Hx of CABG Code(s): Z95.1 - PRESENCE OF AORTOCORONARY BYPASS GRAFT (2) S/P MVR (mitral valve repair) Code(s): Z98.890 - OTHER SPECIFIED POSTPROCEDURAL STATES (3) Anxiety and depression Assessment/Plan: hold zoloft while NPO Code(s): F41.9 - ANXIETY DISORDER, UNSPECIFIED; F32.9 - MAJOR DEPRESSIVE DISORDER, SINGLE EPISODE, UNSPECIFIED (4) S/P craniotomy Assessment/Plan: no neurological defecits Code(s): Z98.890 - OTHER SPECIFIED POSTPROCEDURAL STATES (5) Acute pancreatitis Assessment/Plan: CT consisitent with recurrent pancreatatis continue to trend tito/lip NPO with IVF appreciate consultation with Dr Olivera Code(s): K85.90 - ACUTE PANCREATITIS WITHOUT NECROSIS OR INFECTION, UNSP (6) COPD (chronic obstructive pulmonary disease) Assessment/Plan: daily tobacco use counseled on smoking cessation nicotine patch if request Code(s): J44.9 - CHRONIC OBSTRUCTIVE PULMONARY DISEASE, UNSPECIFIED (7) HTN (hypertension) Assessment/Plan: normotensive holding PO atihypertensives will dose IV if needed change lasix to IV while NPO Code(s): I10 - ESSENTIAL (PRIMARY) HYPERTENSION (8) Nicotine dependence Assessment/Plan: daily tobacco use nicotine patch if requested Code(s): F17.200 - NICOTINE DEPENDENCE, UNSPECIFIED, UNCOMPLICATED Qualifiers: Nicotine product type: cigarettes Substance use status: uncomplicated Qualified Code(s): F17.210 - Nicotine dependence, cigarettes, uncomplicated (9) Prophylactic measure Assessment/Plan: FEN IVF/bananna bag monitor electrolytes NPO DVT heparin sq Dispo maintain as inpatient full code discharge planning Code(s): Z29.9 - ENCOUNTER FOR PROPHYLACTIC MEASURES, UNSPECIFIED (10) EtOH dependence Assessment/Plan: counseled on ETOH cessation bananna bag Code(s): F10.20 - ALCOHOL DEPENDENCE, UNCOMPLICATED Visit type - Emergency Visit Emergency Visit: Yes ED Registration Date: 02/20/19 Care time: The patient presented to the Emergency Department on the above date and was hospitalized for further evaluation of their emergent condition. - New Patient This patient is new to me today: Yes Date on this admission: 02/21/19 - Critical Care Critical Care patient: No - Discharge Referral Referred to [facility] Med P.C.: No
--- NOTE | 2019-02-21 09:01 | CONSULT ---
- Consultation REQUESTING PROVIDER: CONSULT REQUEST: We have been asked to surgically evaluate this patient for pancreatitis PCP:AMADA Randhawa HISTORY OF PRESENT ILLNESS: 58yo F presented to to the ED with complaints of LUQ abd pain radiating to the back x 2 weeks. Pt states the pain is worse after eating. Pt had episode of pancreatitis 1 year ago, but since went to rehab, and only drinks once a week. Pt had CT abd that showed acute pancreatitis. Pt was admitted to the hospital made NPO and started on IV fluids. PMHx: HTN, anemia, ETOH abuse, HLD PSHx: Ovarian cystectomy Home Medications Medication Instructions Recorded Ferrous Sulfate 325 mg PO DAILY 01/31/17 Furosemide [Lasix -] 20 mg PO BID@0600,1400 #60 tablet 01/12/18 Amlodipine Besylate [Norvasc -] 5 mg PO DAILY 05/01/18 Aspirin [ASA -] 81 mg PO DAILY #30 tab.chew 05/03/18 Folic Acid - 1 mg PO DAILY #30 tablet 05/03/18 Potassium Chloride 20 meq PO DAILY #30 tablet.er 05/03/18 Thiamine HCl [Vitamin B1 -] 100 mg PO DAILY #30 tablet 05/03/18 Atorvastatin Ca [Lipitor] 40 mg PO HS 06/17/18 Lipase/Protease/Amylase [Creon Dr 1 cap PO TIDCM #90 capsule.dr 06/25/18 36,000 Units Capsule] Nicotine Patch [Nicoderm Patch -] 14 mg TD DAILY #30 patch 06/25/18 Sertraline HCl [Zoloft -] 25 mg PO DAILY #30 tablet 06/25/18 Allergies Allergy/AdvReac Type Severity Reaction Status Date / Time No Known Allergies Allergy Verified 02/20/19 12:58 REVIEW OF SYSTEMS: CONSTITUTIONAL: Absent: fever, chills, diaphoresis, generalized weakness, malaise, loss of appetite, weight change CARDIOVASCULAR: Absent: chest pain, syncope, palpitations, irregular heart rate, lightheadedness , peripheral edema RESPIRATORY: Absent: cough, shortness of breath, dyspnea with exertion, wheezing, stridor, hemoptysis GASTROINTESTINAL: Absent: abdominal distension, nausea, vomiting, diarrhea, constipation, melena , hematochezia GENITOURINARY: Absent: dysuria, frequency, urgency, hesitancy, hematuria, genital pain MUSCULOSKELETAL: Absent: myalgia, arthralgia, joint swelling, back pain, neck pain PHYSICAL EXAM: GENERAL: Awake, alert, and fully oriented, in no acute distress. HEAD: Normal with no signs of trauma. EYES: PERRL, sclera anicteric, conjunctiva clear. NECK: Normal ROM, supple without lymphadenopathy, JVD, or masses. LUNGS: Clear to auscultation bilat anteriorly. No wheezes, and no crackles. No accessory muscle use. HEART: Regular rate and rhythm. No murmurs ABDOMEN: Soft, mild diffuse tenderness worse LUQ, not distended, no guarding, no rebound, no masses. No organomegaly. MUSCULOSKELETAL: Normal ROM at all joints. No bony deformities or tenderness. No CVA tenderness. LOWER EXTREMITIES: No peripheral edema. NEUROLOGICAL: Normal speech, gait not observed. PSYCH: Cooperative. Good eye contact. Appropriate mood and affect. SKIN: Warm, dry, normal turgor, no rashes or lesions noted. Vital Signs Temperature 98.6 F 02/21/19 05:00 Pulse Rate 55 L 02/21/19 05:00 Respiratory Rate 18 02/21/19 05:00 Blood Pressure 156/86 02/21/19 05:00 O2 Sat by Pulse Oximetry (%) 99 02/20/19 23:30 Lab Results WBC 7.0 K/mm3 (4.0-10.0) 02/21/19 06:28 RBC 2.90 M/mm3 (3.60-5.2) L 02/21/19 06:28 Hgb 9.4 GM/dL (10.7-15.3) L 02/21/19 06:28 Hct 28.0 % (32.4-45.2) L 02/21/19 06:28 MCV 96.6 fl (80-96) H 02/21/19 06:28 MCHC 33.6 g/dl (32.0-36.0) 02/21/19 06:28 RDW 14.3 % (11.6-15.6) 02/21/19 06:28 Plt Count 321 K/MM3 (134-434) 02/21/19 06:28 Sodium 140 mmol/L (136-145) 02/21/19 06:28 Potassium 3.3 mmol/L (3.5-5.1) L 02/21/19 06:28 Chloride 107 mmol/L (98-107) 02/21/19 06:28 Carbon Dioxide 23 mmol/L (21-32) 02/21/19 06:28 Anion Gap 10 MMOL/L (8-16) 02/21/19 06:28 BUN 5.8 mg/dL (7-18) L 02/21/19 06:28 Creatinine 0.5 mg/dL (0.55-1.3) L 02/21/19 06:28 Random Glucose 66 mg/dL (74-106) L 02/21/19 06:28 Calcium 8.7 mg/dL (8.5-10.1) 02/21/19 06:28 CT abd/pel: recurrent acute pancreatitis, small possible necrotic area in pancreas Problem List - Problems (1) Acute pancreatitis Assessment/Plan: Plan -no need for surgical intervention at this time, continue NPO and IV fluids -emphasized importance to pt of stopping etoh use -will follow. Case discussed with Dr. Olivera who agrees with plan Code(s): K85.90 - ACUTE PANCREATITIS WITHOUT NECROSIS OR INFECTION, UNSP
[2019-02-21] MEDS: HEPARIN NA (PORCINE) 5,000 UNITS/ML 1ML VIAL SQ SCH ×2 (09:47→21:53)
[2019-02-21] MEDS ORDERED: ACETAMINOPHEN 1000 MG/100 ML VIAL (NON FORMULARY) IVPB PRN (10:49)
[2019-02-21] MEDS ORDERED: FOLIC ACID INJECTION - 1 MG, THIAMINE HCL 100 MG, MULTIVIT INJECTION ADULT 10 ML in SOD... IVPB ONE (12:00)
[2019-02-21] MEDS: KCL 10 MEQ IVPB 10 MEQ/100 ML INFUS.BAG IVPB SCH ×2 (12:04→14:20)
[2019-02-21] MEDS: FUROSEMIDE 40 MG/4 ML INJECTABLE VIAL IVPUSH SCH (14:22)
[2019-02-22] MEDS: SODIUM CHLORIDE 1,000 ML IV SCH ×4 (01:37→21:57)
[2019-02-22] MEDS: FUROSEMIDE 40 MG/4 ML INJECTABLE VIAL IVPUSH SCH ×2 (06:10→14:52)
[2019-02-22 07:04] LABS: BASO % 0.9 % (0-2.0); EOS % 2.7 % (0-4.5); HEMATOCRIT 33.6 % (32.4-45.2); HEMOGLOBIN 10.7 GM/dL (10.7-15.3); LYMPH % 32.4 % (8-40); MCH 31.7 pg (25.7-33.7); MCHC 31.9 g/dl (32.0-36.0); MEAN CELL VOLUME 99.4 fl (80-96); MEAN PLT VOLUME 8.7 fl (7.5-11.1); MONO % 6.9 % (3.8-10.2); NEUT % 57.1 % (42.8-82.8); PLATELET COUNT 349 K/MM3 (134-434); RBC 3.38 M/mm3 (3.60-5.2); RDW 14.6 % (11.6-15.6); WHITE BLOOD COUNT 6.6 K/mm3 (4.0-10.0)
[2019-02-22 07:26] LABS: ALBUMIN 3.3 g/dl (3.4-5.0); BILIRUBIN,TOTAL 0.4 mg/dL (0.2-1); BLOOD UREA NITROGEN 4.6 mg/dL (7-18); CALCIUM 8.9 mg/dL (8.5-10.1); CREATININE 0.6 mg/dL (0.55-1.3); MAGNESIUM 1.4 mg/dL (1.8-2.4); POTASSIUM 3.4 mmol/L (3.5-5.1); TOT PROT 6.9 g/dl (6.4-8.2)
[2019-02-22] MEDS ORDERED: MAGNESIUM SULF 50% (8.12 MEQ/2 ML-1 GM VIAL) IVPB ONE (08:34)
--- NOTE | 2019-02-22 09:07 | PN ---
Progress Note (short form) - Note Progress Note: surgery Patient being followed for acute pancreatitis seen and examined at bedside with no complaints. She states her pain is controlled and denies any CP, SOB, N/V/D fever or chills. Vital Signs Temp 98 F 02/22/19 06:14 Pulse 75 02/22/19 06:14 Resp 16 02/22/19 06:14 BP 120/71 02/22/19 06:14 Pulse Ox 98 02/21/19 21:00 Intake & Output 02/21/19 02/21/19 02/22/19 11:59 23:59 11:59 Intake Total 900 2050 450 Balance 900 2050 450 Weight 99 lb Intake: IV 900 1350 450 Normal Saline - 1,000 ml 900 1350 450 @ 150 mls/hr IV ASDIR DK Rx#:[id number] IVPB 700 Other: Voiding Method Toilet Toilet Toilet # Unmeasured Voids Void 1 1 Height 5 ft 7 in Body Mass Index (BMI) 15.5 CBC, BMP 02/22/19 06:15 02/22/19 06:15 PE: A&Ox3, NAD Unlabored resp on RA ABD: Soft, ND, with focal ttp over epigastrum and RUQ. no rebound tenderness, guarding or masses. <Doris Feliciano - Last Filed: 02/22/19 09:11> - Note Progress Note: Attending Surgeon seen and evaluated advance diet as tolerated; repeat imaging as clinically indicated. Edwin Olivera MD FACS <Edwin Olivera - Last Filed: 02/23/19 09:35> Problem List - Problems (1) Acute pancreatitis Assessment/Plan: Plan -no need for surgical intervention at this time, continue NPO and IV fluids -emphasized importance to pt of stopping etoh use - Re-consult surgery PRN Evaluation and plan discussed with Dr Olivera Code(s): K85.90 - ACUTE PANCREATITIS WITHOUT NECROSIS OR INFECTION, UNSP <Doris Feliciano - Last Filed: 02/22/19 09:11>
[2019-02-22] MEDS: KCL 10 MEQ IVPB 10 MEQ/100 ML INFUS.BAG IVPB SCH ×2 (09:34→17:49)
[2019-02-22] MEDS: HEPARIN NA (PORCINE) 5,000 UNITS/ML 1ML VIAL SQ SCH ×2 (09:35→21:57)
[2019-02-22] MEDS ORDERED: KCL 10 MEQ IVPB 10 MEQ/100 ML INFUS.BAG IVPB SCH (17:30)
--- NOTE | 2019-02-22 17:51 | PN ---
Progress Note, Physician Chief Complaint: abdominal pain subsided today, passing flatus History of Present Illness: 58 year old female with PMHx of HTN, MVR, CAD ( S/p CABG), Anemia, COPD anxiety , depression and ETOH abuse with pancreatitis, and daily tobacco use. Patient arrived to ED with complain of left flank pain radiating to left lower abdomen and epigastric area for 2 1/2 weeks, pain in intermittent when occurs ( pain scale 10/10), currently no N/V, had one episode of vomiting last week, and decreased appetite. As per patient took GASx and Naporoxen without relief. Last alcohol beverage patient had was last (2 full glass of vodka). Currently denies fever, CP, SOB, dysuria, hematuria, diarrhea, and constipation. - Current Medication List Current Medications: Active Medications Acetaminophen (Ofirmev Injection -) 750 mg IVPB Q6H PRN PRN Reason: PAIN OR FEVER Furosemide (Lasix Injection -) 10 mg IVPUSH BID@0600,1400 [facility] Last Admin: 02/22/19 14:52 Dose: 10 mg Heparin Sodium (Porcine) (Heparin -) 5,000 unit SQ BID [facility] Last Admin: 02/22/19 09:35 Dose: 5,000 unit Sodium Chloride (Normal Saline -) 1,000 mls @ 0 mls/hr IV ASDIR [facility] Last Admin: 02/22/19 17:32 Dose: Not Given Sodium Chloride (Normal Saline -) 1,000 mls @ 150 mls/hr IV ASDIR [facility] Last Admin: 02/22/19 09:14 Dose: 150 mls/hr Potassium Chloride (Potassium Chloride 10 Meq Premix Ivpb -) 10 meq in 100 mls @ 100 mls/hr IVPB Q60M [facility] Stop: 02/22/19 18:29 - Objective Vital Signs: Vital Signs Temperature 98.3 F 02/22/19 17:25 Pulse Rate 66 02/22/19 17:25 Respiratory Rate 18 02/22/19 17:25 Blood Pressure 149/91 02/22/19 17:25 O2 Sat by Pulse Oximetry (%) 98 02/21/19 21:00 Constitutional: Yes: No Distress, Calm, Thin Eyes: Yes: WNL, Conjunctiva Clear, EOM Intact HENT: Yes: WNL, Atraumatic, Normocephalic Neck: Yes: WNL, Supple, Trachea Midline Cardiovascular: Yes: WNL, Regular Rate and Rhythm Respiratory: Yes: WNL, Regular, CTA Bilaterally Gastrointestinal: Yes: WNL, Normal Bowel Sounds, Soft ...Rectal Exam: Yes: Deferred Genitourinary: Yes: WNL Breast(s): Yes: WNL Musculoskeletal: Yes: WNL Extremities: Yes: WNL Edema: No Peripheral Pulses WNL: Yes Peripheral Pulses: Left Radial: 2+, Right Radial: 2+, Left Doralis Pedis: 2+, Right Dorsalis Pedis: 2+, Left Femoral: 2+, Right Femoral: 2+ Integumentary: Yes: WNL Neurological: Yes: WNL, Alert, Oriented ...Motor Strength: WNL Psychiatric: Yes: WNL, Alert Labs: CBC, BMP 02/22/19 06:15 02/22/19 06:15 Problem List - Problems (1) Hx of CABG Code(s): Z95.1 - PRESENCE OF AORTOCORONARY BYPASS GRAFT (2) S/P MVR (mitral valve repair) Code(s): Z98.890 - OTHER SPECIFIED POSTPROCEDURAL STATES (3) Anxiety and depression Assessment/Plan: hold zoloft while NPO Code(s): F41.9 - ANXIETY DISORDER, UNSPECIFIED; F32.9 - MAJOR DEPRESSIVE DISORDER, SINGLE EPISODE, UNSPECIFIED (4) S/P craniotomy Assessment/Plan: no neurological defecits Code(s): Z98.890 - OTHER SPECIFIED POSTPROCEDURAL STATES (5) Acute pancreatitis Assessment/Plan: CT consistent with recurrent pancreatatis continue to trend tito/lip NPO with IVF appreciate consultation with Dr Olivera Code(s): K85.90 - ACUTE PANCREATITIS WITHOUT NECROSIS OR INFECTION, UNSP (6) COPD (chronic obstructive pulmonary disease) Assessment/Plan: daily tobacco use counseled on smoking cessation nicotine patch if request Code(s): J44.9 - CHRONIC OBSTRUCTIVE PULMONARY DISEASE, UNSPECIFIED (7) HTN (hypertension) Assessment/Plan: normotensive holding PO atihypertensives will dose IV if needed change lasix to IV while NPO Code(s): I10 - ESSENTIAL (PRIMARY) HYPERTENSION (8) Nicotine dependence Assessment/Plan: daily tobacco use nicotine patch if requested Code(s): F17.200 - NICOTINE DEPENDENCE, UNSPECIFIED, UNCOMPLICATED Qualifiers: Nicotine product type: cigarettes Substance use status: uncomplicated Qualified Code(s): F17.210 - Nicotine dependence, cigarettes, uncomplicated (9) Prophylactic measure Assessment/Plan: FEN IVF/bananna bag monitor electrolytes NPO DVT heparin sq Dispo maintain as inpatient full code discharge planning Code(s): Z29.9 - ENCOUNTER FOR PROPHYLACTIC MEASURES, UNSPECIFIED (10) EtOH dependence Assessment/Plan: counseled on ETOH cessation bananna bag Code(s): F10.20 - ALCOHOL DEPENDENCE, UNCOMPLICATED Visit type - Emergency Visit Emergency Visit: Yes ED Registration Date: 02/20/19 Care time: The patient presented to the Emergency Department on the above date and was hospitalized for further evaluation of their emergent condition. - New Patient This patient is new to me today: Yes Date on this admission: 03/09/19 - Critical Care Critical Care patient: No - Discharge Referral Referred to [facility] Med P.C.: No
[2019-02-23] MEDS: FUROSEMIDE 40 MG/4 ML INJECTABLE VIAL IVPUSH SCH ×2 (06:22→14:12)
[2019-02-23 08:16] LABS: BASO % 0.7 % (0-2.0); EOS % 4.2 % (0-4.5); HEMOGLOBIN 9.7 GM/dL (10.7-15.3); LYMPH % 30.8 % (8-40); MCH 32.7 pg (25.7-33.7); MCHC 33.6 g/dl (32.0-36.0); MEAN CELL VOLUME 97.4 fl (80-96); MEAN PLT VOLUME 8.4 fl (7.5-11.1); MONO % 8.2 % (3.8-10.2); NEUT % 56.1 % (42.8-82.8); PLATELET COUNT 329 K/MM3 (134-434); RBC 2.98 M/mm3 (3.60-5.2); RDW 14.6 % (11.6-15.6); WHITE BLOOD COUNT 5.4 K/mm3 (4.0-10.0)
[2019-02-23 08:59] LABS: ALBUMIN 3.1 g/dl (3.4-5.0); BILIRUBIN,TOTAL 0.4 mg/dL (0.2-1); BLOOD UREA NITROGEN 3.5 mg/dL (7-18); CALCIUM 8.6 mg/dL (8.5-10.1); CREATININE 0.7 mg/dL (0.55-1.3); MAGNESIUM 1.8 mg/dL (1.8-2.4); POTASSIUM 4.1 mmol/L (3.5-5.1); TOT PROT 6.6 g/dl (6.4-8.2)
[2019-02-23] MEDS: HEPARIN NA (PORCINE) 5,000 UNITS/ML 1ML VIAL SQ SCH ×2 (09:05→21:53)
[2019-02-23] MEDS: SODIUM CHLORIDE 1,000 ML IV SCH ×3 (14:12→23:55)
--- NOTE | 2019-02-23 21:27 | PN ---
Progress Note, Physician History of Present Illness: Pt admits to etoh abuse Pt states that she is feeling better and is hungry - Current Medication List Current Medications: Active Medications Acetaminophen (Ofirmev Injection -) 750 mg IVPB Q6H PRN PRN Reason: PAIN OR FEVER Furosemide (Lasix Injection -) 10 mg IVPUSH BID@0600,1400 [facility] Last Admin: 02/23/19 14:12 Dose: 10 mg Heparin Sodium (Porcine) (Heparin -) 5,000 unit SQ BID [facility] Last Admin: 02/23/19 09:05 Dose: 5,000 unit Sodium Chloride (Normal Saline -) 1,000 mls @ 0 mls/hr IV ASDIR [facility] Last Admin: 02/23/19 14:12 Dose: Not Given Sodium Chloride (Normal Saline -) 1,000 mls @ 150 mls/hr IV ASDIR [facility] Last Admin: 02/23/19 17:28 Dose: 150 mls/hr - Objective Vital Signs: Vital Signs Temperature 98.8 F 02/23/19 10:00 Pulse Rate 60 02/23/19 10:00 Respiratory Rate 18 02/23/19 10:00 Blood Pressure 139/83 02/23/19 10:00 O2 Sat by Pulse Oximetry (%) 100 02/23/19 09:00 Constitutional: Yes: Thin Eyes: Yes: WNL HENT: Yes: WNL Neck: Yes: WNL, Supple Cardiovascular: Yes: WNL, Regular Rate and Rhythm Respiratory: Yes: WNL, Regular, CTA Bilaterally Gastrointestinal: Yes: Normal Bowel Sounds, Soft, Other (minimal LUQ tenderness on palpation (-) guarding/rebound) Edema: No Labs: CBC, BMP 02/23/19 06:30 02/23/19 06:30 Problem List - Problems (1) Acute pancreatitis Assessment/Plan: Ct scan abd showed recurrent pancreatitis w/ small area of necrosis Surgical consult noted: no surgical intervention at this time Cont IVF Will start clear liquid diet Code(s): K85.90 - ACUTE PANCREATITIS WITHOUT NECROSIS OR INFECTION, UNSP (2) CAD (coronary artery disease) Assessment/Plan: S/P CABG/Stents Code(s): I25.10 - ATHSCL HEART DISEASE OF [place] CORONARY ARTERY W/O ANG PCTRS (3) EtOH dependence Code(s): F10.20 - ALCOHOL DEPENDENCE, UNCOMPLICATED (4) Hx of CABG Code(s): Z95.1 - PRESENCE OF AORTOCORONARY BYPASS GRAFT (5) Anemia Code(s): D64.9 - ANEMIA, UNSPECIFIED (6) COPD (chronic obstructive pulmonary disease) Code(s): J44.9 - CHRONIC OBSTRUCTIVE PULMONARY DISEASE, UNSPECIFIED (7) HLD (hyperlipidemia) Code(s): E78.5 - HYPERLIPIDEMIA, UNSPECIFIED Qualifiers: Hyperlipidemia type: pure hypercholesterolemia Qualified Code(s): E78.00 - Pure hypercholesterolemia, unspecified; E78.0 - Pure hypercholesterolemia (8) HTN (hypertension) Code(s): I10 - ESSENTIAL (PRIMARY) HYPERTENSION
[2019-02-24] MEDS: ACETAMINOPHEN 1000 MG/100 ML VIAL (NON FORMULARY) IVPB PRN ×2 (01:57→17:46)
[2019-02-24] MEDS: MORPHINE SULFATE 2 MG/ML VIAL IVPUSH PRN (05:17)
[2019-02-24] MEDS: FUROSEMIDE 40 MG/4 ML INJECTABLE VIAL IVPUSH SCH ×2 (06:05→14:18)
[2019-02-24 07:50] LABS: BASO % 0.3 % (0-2.0); EOS % 3.1 % (0-4.5); HEMOGLOBIN 9.8 GM/dL (10.7-15.3); LYMPH % 22.6 % (8-40); MCH 31.9 pg (25.7-33.7); MCHC 32.8 g/dl (32.0-36.0); MEAN CELL VOLUME 97.2 fl (80-96); MEAN PLT VOLUME 8.3 fl (7.5-11.1); PLATELET COUNT 310 K/MM3 (134-434); RBC 3.08 M/mm3 (3.60-5.2); RDW 14.5 % (11.6-15.6); WHITE BLOOD COUNT 7.3 K/mm3 (4.0-10.0)
[2019-02-24 08:12] LABS: ALBUMIN 3.2 g/dl (3.4-5.0); BILIRUBIN,TOTAL 0.3 mg/dL (0.2-1); CALCIUM 8.8 mg/dL (8.5-10.1); CREATININE 0.6 mg/dL (0.55-1.3); POTASSIUM 3.9 mmol/L (3.5-5.1); TOT PROT 6.8 g/dl (6.4-8.2)
[2019-02-24 08:35] LABS: BLOOD UREA NITROGEN 2.3 mg/dL (7-18)
[2019-02-24] MEDS: HEPARIN NA (PORCINE) 5,000 UNITS/ML 1ML VIAL SQ SCH ×2 (10:33→21:59)
--- NOTE | 2019-02-24 23:39 | PN ---
Progress Note, Physician History of Present Illness: Pt w/ some abdominal discomfort with starting diet - Current Medication List Current Medications: Active Medications Acetaminophen (Ofirmev Injection -) 750 mg IVPB Q6H PRN PRN Reason: PAIN OR FEVER Last Admin: 02/24/19 17:46 Dose: 750 mg Furosemide (Lasix Injection -) 10 mg IVPUSH BID@0600,1400 [facility] Last Admin: 02/24/19 14:18 Dose: 10 mg Heparin Sodium (Porcine) (Heparin -) 5,000 unit SQ BID [facility] Last Admin: 02/24/19 21:59 Dose: 5,000 unit Morphine Sulfate (Morphine Sulfate) 2 mg IVPUSH Q6H PRN PRN Reason: PAIN LEVEL 1-6 Last Admin: 02/24/19 05:17 Dose: 2 mg - Objective Vital Signs: Vital Signs Temperature 98.3 F 02/24/19 22:00 Pulse Rate 67 02/24/19 22:00 Respiratory Rate 17 02/24/19 22:00 Blood Pressure 150/77 02/24/19 22:00 O2 Sat by Pulse Oximetry (%) 100 02/24/19 21:00 Constitutional: Yes: Thin Eyes: Yes: WNL Neck: Yes: WNL, Supple, Trachea Midline Cardiovascular: Yes: WNL, Regular Rate and Rhythm Respiratory: Yes: WNL, Regular, CTA Bilaterally Gastrointestinal: Yes: Soft, Other (Minimal tenderness on palpation of LUQ (-) guarding/rebound) Labs: CBC, BMP 02/24/19 06:45 02/24/19 06:45 Problem List - Problems (1) Acute pancreatitis Assessment/Plan: Ct scan abd showed recurrent pancreatitis w/ small area of necrosis Surgical consult noted: no surgical intervention at this time Cont IVF Advance to full liquid diet Check labs in am Code(s): K85.90 - ACUTE PANCREATITIS WITHOUT NECROSIS OR INFECTION, UNSP (2) CAD (coronary artery disease) Assessment/Plan: S/P CABG/Stents Code(s): I25.10 - ATHSCL HEART DISEASE OF [place] CORONARY ARTERY W/O ANG PCTRS (3) EtOH dependence Assessment/Plan: Cont thiamine/folate Code(s): F10.20 - ALCOHOL DEPENDENCE, UNCOMPLICATED (4) Hx of CABG Code(s): Z95.1 - PRESENCE OF AORTOCORONARY BYPASS GRAFT (5) Anemia Assessment/Plan: Monitor H/H Code(s): D64.9 - ANEMIA, UNSPECIFIED Qualifiers: Anemia type: unspecified type Qualified Code(s): D64.9 - Anemia, unspecified (6) COPD (chronic obstructive pulmonary disease) Code(s): J44.9 - CHRONIC OBSTRUCTIVE PULMONARY DISEASE, UNSPECIFIED (7) HLD (hyperlipidemia) Code(s): E78.5 - HYPERLIPIDEMIA, UNSPECIFIED Qualifiers: Hyperlipidemia type: pure hypercholesterolemia Qualified Code(s): E78.00 - Pure hypercholesterolemia, unspecified; E78.0 - Pure hypercholesterolemia (8) HTN (hypertension) Code(s): I10 - ESSENTIAL (PRIMARY) HYPERTENSION
[2019-02-25] MEDS: FUROSEMIDE 40 MG/4 ML INJECTABLE VIAL IVPUSH SCH ×2 (05:34→14:59)
[2019-02-25 07:54] LABS: BASO % 0.2 % (0-2.0); EOS % 2.7 % (0-4.5); HEMOGLOBIN 9.7 GM/dL (10.7-15.3); LYMPH % 29.8 % (8-40); MCH 32.3 pg (25.7-33.7); MCHC 33.6 g/dl (32.0-36.0); MEAN CELL VOLUME 96.1 fl (80-96); MEAN PLT VOLUME 8.5 fl (7.5-11.1); NEUT % 59.3 % (42.8-82.8); PLATELET COUNT 281 K/MM3 (134-434); RBC 3.02 M/mm3 (3.60-5.2); RDW 14.6 % (11.6-15.6); WHITE BLOOD COUNT 6.5 K/mm3 (4.0-10.0)
[2019-02-25 08:15] LABS: BILIRUBIN,TOTAL 0.4 mg/dL (0.2-1); BLOOD UREA NITROGEN 4.3 mg/dL (7-18); CALCIUM 9.2 mg/dL (8.5-10.1); CREATININE 0.6 mg/dL (0.55-1.3); POTASSIUM 3.3 mmol/L (3.5-5.1); TOT PROT 6.6 g/dl (6.4-8.2)
[2019-02-25] MEDS: SERTRALINE HCL 25 MG TABLET (FP) PO SCH (09:34)
[2019-02-25] MEDS: THIAMINE HCL 100 MG TABLET (FP) PO SCH (09:34)
[2019-02-25] MEDS: FOLIC ACID 1 MG TABLET (FP) PO SCH (09:34)
[2019-02-25] MEDS: FERROUS SO4 325 MG TABLET (FP) PO SCH (09:34)
[2019-02-25] MEDS: ASPIRIN 81 MG CHEWABLE TABLETS PO SCH (09:34)
[2019-02-25] MEDS: HEPARIN NA (PORCINE) 5,000 UNITS/ML 1ML VIAL SQ SCH ×2 (09:35→21:09)
[2019-02-25] MEDS ORDERED: PT OWN MED DRAWER 7, Y5N ONE (09:43)
[2019-02-25] MEDS: LIPASE/PROTEASE/AMYLASE 36,000 UNIT CAPSULE PO SCH ×3 (09:44→19:18)
[2019-02-25] MEDS ORDERED: DEXTROSE 5%-0.45% SALINE 1,000 ML IV SCH (15:15)
[2019-02-25] MEDS: ACETAMINOPHEN 1000 MG/100 ML VIAL (NON FORMULARY) IVPB PRN (15:30)
[2019-02-25] MEDS: KCL 10 MEQ IVPB 10 MEQ/100 ML INFUS.BAG IVPB SCH ×3 (15:39→20:24)
--- NOTE | 2019-02-25 17:11 | CON.GI ---
Consult Consult Specialty:: Gastroenterology Referred by:: Dr. Colon Reason for Consultation:: Pancreatitis - History of Present Illness Chief Complaint: Abdominal pain/pancreatitis. History of Present Illness: 58 year old woman with history of multiple previous admissions for uncomplicated alcohol-related pancreatitis admitted 02/20/19 with flank pain radiating to anterior abdomen with exam, laboratory testing, and imaging all consistent with pancreatitis. Was NPO with good pain relief, but with dietary advance today developed worsening abdominal pain consistent with continued pancreatitis. No fever, volume deficit, elevation in creatinine, change in breathing/shortness of breath, depression in calcium or other clinical or laboratory change to suggest poor prognosis, infected necrotic pancreatitis, respiratory compromise or other complication of acute pancreatitis. Admission CT with suggestion of 1 cm area of possible necrosis, though of limited value in prognosis (48-72 hour changes of greater utility--would expect to see changes ). With today's increase in pain with dietary advance, noted to have rise in lipase and amylase. NO rise in Cr/BUN. - Past Medical History [employer]: Yes: Seizure, Other (SDH) Cardio/Vascular: Yes: HTN, Hyperlipdemia Pulmonary: Yes: COPD Gastrointestinal: Yes: GERD, Pancreatitis ...LMP: 01/08/97 ...: No Psych: Yes: Addictions, Anxiety, Depression, Other (ETOH abuse) - Past Surgical History Past Surgical History: Yes: Valve Replacement - Alcohol/Substance Use Hx Alcohol Use: Yes - Smoking History Smoking history: Current every day smoker Have you smoked in the past 12 months: Yes Aproximately how many cigarettes per day: 20 - Social History ADL: Independent History of Recent Travel: No Home Medications - Allergies Allergies/Adverse Reactions: Allergies Allergy/AdvReac Type Severity Reaction Status Date / Time No Known Allergies Allergy Verified 02/20/19 12:58 - Home Medications Home Medications: Ambulatory Orders Ferrous Sulfate 325 mg PO DAILY 01/31/17 Furosemide [Lasix -] 20 mg PO BID@0600,1400 #60 tablet 01/12/18 Amlodipine Besylate [Norvasc -] 5 mg PO DAILY 05/01/18 Aspirin [ASA -] 81 mg PO DAILY #30 tab.chew 05/03/18 Folic Acid - 1 mg PO DAILY #30 tablet 05/03/18 Potassium Chloride 20 meq PO DAILY #30 tablet.er 05/03/18 Thiamine HCl [Vitamin B1 -] 100 mg PO DAILY #30 tablet 05/03/18 Atorvastatin Ca [Lipitor] 40 mg PO HS 06/17/18 Lipase/Protease/Amylase [Karishma Chacon 36,000 Units Capsule] 1 cap PO TIDCM #90 capsule. 06/25/18 Nicotine Patch [Nicoderm Patch -] 14 mg TD DAILY #30 patch 06/25/18 Sertraline HCl [Zoloft -] 25 mg PO DAILY #30 tablet 06/25/18 Family Disease History - Family Disease History Family Disease History: Diabetes: Father (), Mother (), Brother (/RENAL ), Heart Disease: Father, Other: Father, Mother, Brother Review of Systems - Review of Systems Constitutional: reports: Malaise, Weakness. denies: Chills, Fever, Night Sweats Respiratory: denies: Cough, SOB Gastrointestinal: reports: Abdominal Pain, Bloating. denies: Diarrhea, Dysphagia, Melena, Vomiting Physical Exam-GI Vital Signs: Vital Signs Temperature 99.4 F 02/25/19 09:29 Pulse Rate 59 L 02/25/19 09:29 Respiratory Rate 16 02/25/19 09:29 Blood Pressure 154/81 02/25/19 09:29 O2 Sat by Pulse Oximetry (%) 99 02/25/19 09:00 Constitutional: Yes: Mild Distress, Thin Cardiovascular: Yes: Regular Rate and Rhythm, S1, S2. No: Murmur Respiratory: Yes: CTA Bilaterally. No: Rales, Wheezes Gastrointestinal Inspection: Yes: Distention. No: Scars ...Auscultate: Yes: Normoactive Bowel Sounds ...Palpate: Yes: Soft, Tenderness, Epigastium. No: Guarding, Hepatomegaly, Mass , Splenomegaly, Tenderness, Rebound Labs: CBC, BMP 02/25/19 06:25 02/25/19 06:25 Imaging - Results Cat Scan: Report Reviewed (See report. 1 cm low attenuation focus of possible pancreatic necrosis at body/tail junction. No psuedocyst. Also with new mid- left renal vein intraluminal defect suggestive of thrombus. Stable renal calculi, left adreanal abnormality, and right renal pole abnormality from previous exams.) Problem List - Problems (1) Acute pancreatitis Assessment/Plan: EtOH-related pancreatitis, mild-moderate: Revert to NPO status Consider parenteral nutrition of no resolution in pain and unable to advance diet in 2-3 days IVF (LR preferred) CT scan today; MR in 1-2 months to better evaluate possible necrotic lesion Importance of strict alcohol avoidance reviewed with patient given risks of severe pancreatitis and ductal adenocarcinoma with chronic pancreatitis No need for antibiotics at this time given lack of clinical support for infected necrosis--should air be present in a necrotic area on CT, would reconsider Code(s): K85.90 - ACUTE PANCREATITIS WITHOUT NECROSIS OR INFECTION, UNSP (2) Anemia Assessment/Plan: Elevated MCV anemia--would check folic acid and B12 Uncertain history of colonoscopy in past Code(s): D64.9 - ANEMIA, UNSPECIFIED Qualifiers: Anemia type: unspecified type Qualified Code(s): D64.9 - Anemia, unspecified
--- NOTE | 2019-02-25 18:14 | PN ---
Progress Note, Physician History of Present Illness: Pt having abdominal pain mostly LUQ - Current Medication List Current Medications: Active Medications Acetaminophen (Ofirmev Injection -) 750 mg IVPB Q6H PRN PRN Reason: PAIN OR FEVER Last Admin: 02/25/19 15:30 Dose: 750 mg Aspirin (Asa -) 81 mg PO DAILY [facility] Last Admin: 02/25/19 09:34 Dose: 81 mg Ferrous Sulfate (Feosol -) 325 mg PO DAILY [facility] Last Admin: 02/25/19 09:34 Dose: 325 mg Folic Acid (Folic Acid -) 1 mg PO DAILY [facility] Last Admin: 02/25/19 09:34 Dose: 1 mg Furosemide (Lasix Injection -) 10 mg IVPUSH BID@0600,1400 [facility] Last Admin: 02/25/19 14:59 Dose: 10 mg Heparin Sodium (Porcine) (Heparin -) 5,000 unit SQ BID [facility] Last Admin: 02/25/19 09:35 Dose: 5,000 unit Potassium Chloride (Potassium Chloride 10 Meq Premix Ivpb -) 10 meq in 100 mls @ 100 mls/hr IVPB Q60M [facility] Stop: 02/25/19 18:14 Last Admin: 02/25/19 17:46 Dose: 100 mls/hr Dextrose/Sodium Chloride (D5-1/2ns -) 1,000 mls @ 75 mls/hr IV ASDIR [facility] Last Admin: 02/25/19 15:38 Dose: 75 mls/hr Morphine Sulfate (Morphine Sulfate) 2 mg IVPUSH Q6H PRN PRN Reason: PAIN LEVEL 1-6 Last Admin: 02/24/19 05:17 Dose: 2 mg Pancrelipase (Creon Dr 36,000 Units Capsule) 1 cap PO TIDCM [facility] Last Admin: 02/25/19 14:58 Dose: 1 cap Sertraline HCl (Zoloft -) 25 mg PO DAILY [facility] Last Admin: 02/25/19 09:34 Dose: 25 mg Thiamine HCl (Vitamin B1 -) 100 mg PO DAILY [facility] Last Admin: 02/25/19 09:34 Dose: 100 mg - Objective Vital Signs: Vital Signs Temperature 99.4 F 02/25/19 09:29 Pulse Rate 59 L 02/25/19 09:29 Respiratory Rate 16 02/25/19 09:29 Blood Pressure 154/81 09/02/19 09:29 O2 Sat by Pulse Oximetry (%) 99 02/25/19 09:00 Constitutional: Yes: Thin Eyes: Yes: WNL Neck: Yes: WNL, Supple Cardiovascular: Yes: WNL, Regular Rate and Rhythm Respiratory: Yes: WNL, Regular, CTA Bilaterally Gastrointestinal: Yes: Normal Bowel Sounds, Other ((+) tenderness on palpation of abdomen (-) guarding/rebound) Labs: CBC, BMP 02/25/19 06:25 02/25/19 06:25 Problem List - Problems (1) Acute pancreatitis Assessment/Plan: Ct scan abd showed recurrent pancreatitis w/ small area of necrosis Will order new ct scan abd due to increased abdominal pain and elevation of lipase/amylase Surgical consult noted: no surgical intervention at this time GI consult ordered Change diet to NPO Restart IVF Cont to trend amylase/lipase Code(s): K85.90 - ACUTE PANCREATITIS WITHOUT NECROSIS OR INFECTION, UNSP (2) EtOH dependence Code(s): F10.20 - ALCOHOL DEPENDENCE, UNCOMPLICATED (3) Hx of CABG Code(s): Z95.1 - PRESENCE OF AORTOCORONARY BYPASS GRAFT (4) Anemia Assessment/Plan: Monitor H/H Cont FeSo4 Code(s): D64.9 - ANEMIA, UNSPECIFIED Qualifiers: Anemia type: unspecified type Qualified Code(s): D64.9 - Anemia, unspecified (5) COPD (chronic obstructive pulmonary disease) Code(s): J44.9 - CHRONIC OBSTRUCTIVE PULMONARY DISEASE, UNSPECIFIED (6) HLD (hyperlipidemia) Assessment/Plan: Pt not on a statin Code(s): E78.5 - HYPERLIPIDEMIA, UNSPECIFIED Qualifiers: Hyperlipidemia type: pure hypercholesterolemia Qualified Code(s): E78.00 - Pure hypercholesterolemia, unspecified; E78.0 - Pure hypercholesterolemia (7) HTN (hypertension) Assessment/Plan: BP slightly elevated Will add metoprolol Cont IV lasix wc will change to po once pt tolerating diet Code(s): I10 - ESSENTIAL (PRIMARY) HYPERTENSION (8) CAD (coronary artery disease) Assessment/Plan: S/P CABG/Stents Code(s): I25.10 - ATHSCL HEART DISEASE OF [place] CORONARY ARTERY W/O ANG PCTRS
[2019-02-25] MEDS: LACTATED RINGERS SOLUTION 1,000 ML/1,000 ML INFUS.BAG IV SCH (20:25)
[2019-02-25] MEDS: GABAPENTIN 100 MG CAPSULE (FP) PO SCH (21:08)
[2019-02-26] MEDS: FUROSEMIDE 40 MG/4 ML INJECTABLE VIAL IVPUSH SCH ×2 (05:14→14:37)
[2019-02-26 06:29] LABS: BASO % 0.4 % (0-2.0); EOS % 3.4 % (0-4.5); HEMATOCRIT 27.2 % (32.4-45.2); HEMOGLOBIN 9.1 GM/dL (10.7-15.3); LYMPH % 25.1 % (8-40); MCH 32.1 pg (25.7-33.7); MCHC 33.3 g/dl (32.0-36.0); MEAN CELL VOLUME 96.3 fl (80-96); MEAN PLT VOLUME 8.6 fl (7.5-11.1); MONO % 8.8 % (3.8-10.2); NEUT % 62.3 % (42.8-82.8); PLATELET COUNT 245 K/MM3 (134-434); RBC 2.83 M/mm3 (3.60-5.2); RDW 14.8 % (11.6-15.6); WHITE BLOOD COUNT 5.8 K/mm3 (4.0-10.0)
[2019-02-26 07:02] LABS: ALBUMIN 2.7 g/dl (3.4-5.0); BILIRUBIN,TOTAL 0.3 mg/dL (0.2-1); BLOOD UREA NITROGEN 3.7 mg/dL (7-18); CALCIUM 8.9 mg/dL (8.5-10.1); CREATININE 0.6 mg/dL (0.55-1.3); POTASSIUM 3.3 mmol/L (3.5-5.1)
--- NOTE | 2019-02-26 08:54 | PN ---
Progress Note, Physician History of Present Illness: GI FOLLOW UP NOTE Patient examined and case discussed with Dr Galvez Patient states her abdominal pain is improving, less pain than yesterday. Lipase and amylase showing up trend since admission from [id number] to [id number] and 168 to 518. Patient is currently NPO and IV hydration infusing. Repeat CT scan done with official results pending. Denies nausea, vomiting, constipation, rectal bleeding or blood in stool. - Current Medication List Current Medications: Active Medications Acetaminophen (Ofirmev Injection -) 750 mg IVPB Q6H PRN PRN Reason: PAIN OR FEVER Last Admin: 02/25/19 15:30 Dose: 750 mg Aspirin (Asa -) 81 mg PO DAILY [facility] Last Admin: 02/25/19 09:34 Dose: 81 mg Ferrous Sulfate (Feosol -) 325 mg PO DAILY [facility] Last Admin: 02/25/19 09:34 Dose: 325 mg Folic Acid (Folic Acid -) 1 mg PO DAILY [facility] Last Admin: 02/25/19 09:34 Dose: 1 mg Furosemide (Lasix Injection -) 10 mg IVPUSH BID@0600,1400 [facility] Last Admin: 02/26/19 05:14 Dose: 10 mg Gabapentin (Neurontin -) 200 mg PO HS [facility] Last Admin: 02/25/19 21:08 Dose: 200 mg Heparin Sodium (Porcine) (Heparin -) 5,000 unit SQ BID [facility] Last Admin: 02/25/19 21:09 Dose: 5,000 unit Lactated Ringer's (Lactated Ringers Solution) 1,000 ml in 1,000 mls @ 75 mls/ hr IV ASDIR [facility] Last Admin: 02/25/19 20:25 Dose: 75 mls/hr Metoprolol Succinate (Toprol Xl -) 25 mg PO DAILY [facility] Morphine Sulfate (Morphine Sulfate) 2 mg IVPUSH Q6H PRN PRN Reason: PAIN LEVEL 1-6 Last Admin: 02/24/19 05:17 Dose: 2 mg Pancrelipase (Karishma Chacon 36,000 Units Capsule) 1 cap PO TIDCM [facility] Last Admin: 02/25/19 19:18 Dose: Not Given Sertraline HCl (Zoloft -) 25 mg PO DAILY [facility] Last Admin: 02/25/19 09:34 Dose: 25 mg Thiamine HCl (Vitamin B1 -) 100 mg PO DAILY [facility] Last Admin: 02/25/19 09:34 Dose: 100 mg - Objective Vital Signs: Vital Signs Temperature 98.2 F 02/25/19 21:38 Pulse Rate 63 02/25/19 21:38 Respiratory Rate 18 02/25/19 21:38 Blood Pressure 139/71 02/25/19 21:38 O2 Sat by Pulse Oximetry (%) 99 02/25/19 21:00 Constitutional: Yes: No Distress, Calm Eyes: Yes: Conjunctiva Clear HENT: Yes: Atraumatic Cardiovascular: Yes: Regular Rate and Rhythm Respiratory: Yes: Regular, CTA Bilaterally Gastrointestinal: Yes: Normal Bowel Sounds, Soft, Tenderness (diffuse) Neurological: Yes: Alert, Oriented Psychiatric: Yes: Alert, Oriented Labs: CBC, BMP 02/26/19 05:37 02/26/19 05:37 <Iva Addison - Last Filed: 02/26/19 08:49> History of Present Illness: called by nurse at 1 pm this afternoon, patients pain was worse. Ct reviewed, worsenning of the pancreatitis. IVF increased since this morning - Current Medication List Current Medications: Active Medications Aspirin (Asa -) 81 mg PO DAILY [facility] Last Admin: 02/26/19 09:56 Dose: Not Given Ferrous Sulfate (Feosol -) 325 mg PO DAILY [facility] Last Admin: 02/26/19 09:56 Dose: Not Given Folic Acid (Folic Acid -) 1 mg PO DAILY [facility] Last Admin: 02/26/19 09:56 Dose: Not Given Furosemide (Lasix Injection -) 10 mg IVPUSH BID@0600,1400 [facility] Last Admin: 02/26/19 14:37 Dose: Not Given Gabapentin (Neurontin -) 200 mg PO HS [facility] Last Admin: 02/25/19 21:08 Dose: 200 mg Heparin Sodium (Porcine) (Heparin -) 5,000 unit SQ BID [facility] Last Admin: 02/26/19 09:57 Dose: 5,000 unit Lactated Ringer's (Lactated Ringers Solution) 1,000 ml in 1,000 mls @ 75 mls/ hr IV ASDIR [facility] Last Admin: 02/25/19 20:25 Dose: 75 mls/hr Lactated Ringer's (Lactated Ringers Solution) 1,000 ml in 1,000 mls @ 150 mls/ hr IV ASDIR [facility] Stop: 02/28/19 15:39 Last Admin: 02/26/19 09:55 Dose: 150 mls/hr Metoprolol Succinate (Toprol Xl -) 25 mg PO DAILY [facility] Last Admin: 02/26/19 09:56 Dose: Not Given Morphine Sulfate (Morphine Sulfate) 2 mg IVPUSH Q6H PRN PRN Reason: PAIN LEVEL 1-6 Last Admin: 02/24/19 05:17 Dose: 2 mg Pancrelipase (Creon Dr 36,000 Units Capsule) 1 cap PO TIDCM [facility] Last Admin: 02/26/19 16:32 Dose: Not Given Sertraline HCl (Zoloft -) 25 mg PO DAILY [facility] Last Admin: 02/26/19 09:56 Dose: Not Given Thiamine HCl (Vitamin B1 -) 100 mg PO DAILY [facility] Last Admin: 02/26/19 09:56 Dose: Not Given - Objective Vital Signs: Vital Signs Temperature 99.7 F H 02/26/19 14:36 Pulse Rate 58 L 02/26/19 14:36 Respiratory Rate 20 02/26/19 14:36 Blood Pressure 161/88 02/26/19 14:36 O2 Sat by Pulse Oximetry (%) 96 02/26/19 09:00 Labs: CBC, BMP 02/26/19 05:37 02/26/19 05:37 <Mert Galvez - Last Filed: 02/26/19 17:30> Problem List - Problems (1) Acute pancreatitis Assessment/Plan: -LR AT 150cc/hr x 3 bags -NPO -monitor lipase and amylase level -pain control Code(s): K85.90 - ACUTE PANCREATITIS WITHOUT NECROSIS OR INFECTION, UNSP (2) Pancreatic necrosis Assessment/Plan: -repeat CT scan pending official read -currently no leukocytosis noted Code(s): K86.89 - OTHER SPECIFIED DISEASES OF PANCREAS <Iva Addison - Last Filed: 02/26/19 08:49> - Problems (1) Acute pancreatitis Assessment/Plan: nasogastric feeding tube inserted will check for placement will start tube feeds Code(s): K85.90 - ACUTE PANCREATITIS WITHOUT NECROSIS OR INFECTION, UNSP <Mert Galvez - Last Filed: 02/26/19 17:30>
[2019-02-26] MEDS: LACTATED RINGERS SOLUTION 1,000 ML/1,000 ML INFUS.BAG IV SCH ×3 (09:55→19:03)
[2019-02-26] MEDS: KCL 10 MEQ IVPB 10 MEQ/100 ML INFUS.BAG IVPB SCH ×2 (09:56→11:13)
[2019-02-26] MEDS: ASPIRIN 81 MG CHEWABLE TABLETS PO SCH (09:56)
[2019-02-26] MEDS: metoPROLOL SUCCINATE 25 MG TAB.SR.24H (FP) PO SCH (09:56)
[2019-02-26] MEDS: LIPASE/PROTEASE/AMYLASE 36,000 UNIT CAPSULE PO SCH ×3 (09:56→16:32)
[2019-02-26] MEDS: FERROUS SO4 325 MG TABLET (FP) PO SCH (09:56)
[2019-02-26] MEDS: SERTRALINE HCL 25 MG TABLET (FP) PO SCH (09:56)
[2019-02-26] MEDS: FOLIC ACID 1 MG TABLET (FP) PO SCH (09:56)
[2019-02-26] MEDS: THIAMINE HCL 100 MG TABLET (FP) PO SCH (09:56)
[2019-02-26] MEDS: HEPARIN NA (PORCINE) 5,000 UNITS/ML 1ML VIAL SQ SCH ×2 (09:57→21:12)
[2019-02-26] MEDS ORDERED: FUROSEMIDE 40 MG/4 ML INJECTABLE VIAL IVPUSH ONE (10:30)
[2019-02-26] MEDS ORDERED: METOPROLOL TARTRATE 5 MG/5 ML VIAL IVPB ONE (12:00)
[2019-02-26] MEDS: ACETAMINOPHEN 1000 MG/100 ML VIAL (NON FORMULARY) IVPB PRN (14:06)
--- NOTE | 2019-02-26 15:22 | CON.PSL ---
Psychology Consult Consult Specialty:: Clinical Psychology History Provided By: Patient, Family Member Limitations to Obtaining History: No Limitations Current Medications: Active Medications Aspirin (Asa -) 81 mg PO DAILY [facility] Last Admin: 02/26/19 09:56 Dose: Not Given Ferrous Sulfate (Feosol -) 325 mg PO DAILY [facility] Last Admin: 02/26/19 09:56 Dose: Not Given Folic Acid (Folic Acid -) 1 mg PO DAILY [facility] Last Admin: 02/26/19 09:56 Dose: Not Given Furosemide (Lasix Injection -) 10 mg IVPUSH BID@0600,1400 [facility] Last Admin: 02/26/19 14:37 Dose: Not Given Gabapentin (Neurontin -) 200 mg PO HS [facility] Last Admin: 02/25/19 21:08 Dose: 200 mg Heparin Sodium (Porcine) (Heparin -) 5,000 unit SQ BID [facility] Last Admin: 02/26/19 09:57 Dose: 5,000 unit Lactated Ringer's (Lactated Ringers Solution) 1,000 ml in 1,000 mls @ 75 mls/ hr IV ASDIR [facility] Last Admin: 02/25/19 20:25 Dose: 75 mls/hr Lactated Ringer's (Lactated Ringers Solution) 1,000 ml in 1,000 mls @ 150 mls/ hr IV ASDIR [facility] Stop: 02/28/19 15:39 Last Admin: 02/26/19 09:55 Dose: 150 mls/hr Metoprolol Succinate (Toprol Xl -) 25 mg PO DAILY [facility] Last Admin: 02/26/19 09:56 Dose: Not Given Morphine Sulfate (Morphine Sulfate) 2 mg IVPUSH Q6H PRN PRN Reason: PAIN LEVEL 1-6 Last Admin: 02/24/19 05:17 Dose: 2 mg Pancrelipase (Creon Dr 36,000 Units Capsule) 1 cap PO TIDCM [facility] Last Admin: 02/26/19 11:29 Dose: Not Given Sertraline HCl (Zoloft -) 25 mg PO DAILY [facility] Last Admin: 02/26/19 09:56 Dose: Not Given Thiamine HCl (Vitamin B1 -) 100 mg PO DAILY [facility] Last Admin: 02/26/19 09:56 Dose: Not Given Allergies: Allergies Allergy/AdvReac Type Severity Reaction Status Date / Time No Known Allergies Allergy Verified 02/20/19 12:58 Does patient have pain?: Yes Pain Location Body Site: Abdomen Pain Description: Sharp, Acute Hx Alcohol Use: Yes Hx Substance Use: No Substance Use Type: Alcohol Hx Substance Use Treatment: Yes (Had tried AA and other approaches.) Current Medical Exam-Psy Immediate Term Memory: 33 Expressive: Coherent, Delayed Receptive: Age Appropriate Comprehension of Spoken Words Hallucinations: Absent Thought Process: Intact Depression: Moderate Hopelessness: No Loss of Interest: No Anxiety Level: Moderate Danger to Self and Others: No Sleep: Poorly Appetite: Poor, Weight loss Serial Sevens Intact: No Repeats 3 words told earlier: 0/3 Support System: Spouse Problem List - Problem (1) Anxiety about health Code(s): F41.8 - OTHER SPECIFIED ANXIETY DISORDERS Assessment/Plan The patient was examined in the presence of her . She admitted to ETOH abuse and the resulting pancreatitis. She described her pain as being severe most of the time. Application of warmth over her abdomen is said to reduce pain. She is not hopeless as she wants to live and go on with her life. She has a very loving who is a major support to her. The patient was receptive to psychotherapy and hypnosis for pain management. She will be seen this Monday for follow-up.
[2019-02-26 17:28] VITALS: BMI 15.3
[2019-02-26] MEDS ORDERED: PT OWN MED DRAWER 7, Y5N ONE (18:32)
[2019-02-26] MEDS: MORPHINE SULFATE 2 MG/ML VIAL IVPUSH PRN (19:03)
[2019-02-26] MEDS: GABAPENTIN 100 MG CAPSULE (FP) PO SCH (21:12)
[2019-02-26] MEDS ORDERED: ACETAMINOPHEN 1000 MG/100 ML VIAL (NON FORMULARY) IVPB PRN (21:47)
--- NOTE | 2019-02-26 21:52 | PN ---
Progress Note, Physician - Current Medication List Current Medications: Active Medications Acetaminophen (Ofirmev Injection -) 1,000 mg IVPB Q6H PRN PRN Reason: PAIN Aspirin (Asa -) 81 mg PO DAILY [facility] Last Admin: 02/26/19 09:56 Dose: Not Given Ferrous Sulfate (Feosol -) 325 mg PO DAILY [facility] Last Admin: 02/26/19 09:56 Dose: Not Given Folic Acid (Folic Acid -) 1 mg PO DAILY [facility] Last Admin: 02/26/19 09:56 Dose: Not Given Furosemide (Lasix Injection -) 10 mg IVPUSH BID@0600,1400 [facility] Last Admin: 02/26/19 14:37 Dose: Not Given Gabapentin (Neurontin -) 200 mg PO HS [facility] Last Admin: 02/26/19 21:12 Dose: Not Given Heparin Sodium (Porcine) (Heparin -) 5,000 unit SQ BID [facility] Last Admin: 02/26/19 21:12 Dose: 5,000 unit Lactated Ringer's (Lactated Ringers Solution) 1,000 ml in 1,000 mls @ 75 mls/ hr IV ASDIR [facility] Last Admin: 02/26/19 19:03 Dose: Not Given Lactated Ringer's (Lactated Ringers Solution) 1,000 ml in 1,000 mls @ 150 mls/ hr IV ASDIR [facility] Stop: 02/28/19 15:39 Last Admin: 02/26/19 18:26 Dose: 150 mls/hr Metoprolol Succinate (Toprol Xl -) 25 mg PO DAILY [facility] Last Admin: 02/26/19 09:56 Dose: Not Given Morphine Sulfate (Morphine Sulfate) 2 mg IVPUSH Q6H PRN PRN Reason: PAIN LEVEL 1-6 Last Admin: 02/26/19 19:03 Dose: 2 mg Pancrelipase (Creon Dr 36,000 Units Capsule) 1 cap PO TIDCM [facility] Last Admin: 02/26/19 16:32 Dose: Not Given Sertraline HCl (Zoloft -) 25 mg PO DAILY [facility] Last Admin: 02/26/19 09:56 Dose: Not Given Thiamine HCl (Vitamin B1 -) 100 mg PO DAILY [facility] Last Admin: 02/26/19 09:56 Dose: Not Given - Objective Vital Signs: Vital Signs Temperature 98.6 F 02/26/19 17:42 Pulse Rate 50 L 02/26/19 17:42 Respiratory Rate 18 02/26/19 17:42 Blood Pressure 145/89 02/26/19 17:42 O2 Sat by Pulse Oximetry (%) 96 02/26/19 09:00 Labs: CBC, BMP 02/26/19 05:37 02/26/19 05:37 Problem List - Problems (1) Acute pancreatitis Code(s): K85.90 - ACUTE PANCREATITIS WITHOUT NECROSIS OR INFECTION, UNSP (2) EtOH dependence Code(s): F10.20 - ALCOHOL DEPENDENCE, UNCOMPLICATED (3) Hx of CABG Code(s): Z95.1 - PRESENCE OF AORTOCORONARY BYPASS GRAFT (4) Anemia Code(s): D64.9 - ANEMIA, UNSPECIFIED Qualifiers: Anemia type: unspecified type Qualified Code(s): D64.9 - Anemia, unspecified (5) COPD (chronic obstructive pulmonary disease) Code(s): J44.9 - CHRONIC OBSTRUCTIVE PULMONARY DISEASE, UNSPECIFIED (6) HLD (hyperlipidemia) Code(s): E78.5 - HYPERLIPIDEMIA, UNSPECIFIED Qualifiers: Hyperlipidemia type: pure hypercholesterolemia Qualified Code(s): E78.00 - Pure hypercholesterolemia, unspecified; E78.0 - Pure hypercholesterolemia (7) HTN (hypertension) Code(s): I10 - ESSENTIAL (PRIMARY) HYPERTENSION (8) CAD (coronary artery disease) Code(s): I25.10 - ATHSCL HEART DISEASE OF [place] CORONARY ARTERY W/O ANG PCTRS
[2019-02-27] MEDS: LACTATED RINGERS SOLUTION 1,000 ML/1,000 ML INFUS.BAG IV SCH ×4 (01:36→22:03)
[2019-02-27] MEDS: FUROSEMIDE 40 MG/4 ML INJECTABLE VIAL IVPUSH SCH ×2 (06:08→15:14)
[2019-02-27] MEDS: LIPASE/PROTEASE/AMYLASE 36,000 UNIT CAPSULE PO SCH ×2 (07:41→11:14)
[2019-02-27 07:49] LABS: BASO % 0.5 % (0-2.0); EOS % 3.7 % (0-4.5); LYMPH % 25.4 % (8-40); MCH 32.1 pg (25.7-33.7); MCHC 33.5 g/dl (32.0-36.0); MEAN CELL VOLUME 95.7 fl (80-96); MEAN PLT VOLUME 9.2 fl (7.5-11.1); MONO % 8.6 % (3.8-10.2); NEUT % 61.8 % (42.8-82.8); PLATELET COUNT 254 K/MM3 (134-434); RBC 2.82 M/mm3 (3.60-5.2); RDW 14.9 % (11.6-15.6); WHITE BLOOD COUNT 6.6 K/mm3 (4.0-10.0)
[2019-02-27] MEDS ORDERED: MORPHINE SULFATE 2 MG/ML VIAL IVPUSH ONE (08:10)
[2019-02-27 08:11] LABS: ALBUMIN 2.9 g/dl (3.4-5.0); BILIRUBIN,TOTAL 0.4 mg/dL (0.2-1); BLOOD UREA NITROGEN 4.4 mg/dL (7-18); CALCIUM 8.9 mg/dL (8.5-10.1); CREATININE 0.5 mg/dL (0.55-1.3); POTASSIUM 3.3 mmol/L (3.5-5.1); TOT PROT 6.2 g/dl (6.4-8.2)
--- NOTE | 2019-02-27 08:16 | PN ---
Progress Note, Physician History of Present Illness: GI FOLLOW UP NOTE Patient examined and case discussed with Dr Galvez Patient states her abdominal pain is better than yesterday. Yesterday afternoon patient developed LLQ pain which she states has subsided. Repeat CT scan shows progression of pancreatitis with enhancement of pancreatic parenchyma with no definite worsening pancreatic necrosis. An NGT was placed yesterday to start feedings. This morning NGT came out while patient was using the bathroom. Will re-attempt to place NGT this morning. Noted with low grade fever this morning, pending most recent WBC. - Current Medication List Current Medications: Active Medications Acetaminophen (Ofirmev Injection -) 1,000 mg IVPB Q6H PRN PRN Reason: PAIN LEVEL 1-6 Aspirin (Asa -) 81 mg PO DAILY [facility] Last Admin: 02/26/19 09:56 Dose: Not Given Ferrous Sulfate (Feosol -) 325 mg PO DAILY [facility] Last Admin: 02/26/19 09:56 Dose: Not Given Folic Acid (Folic Acid -) 1 mg PO DAILY [facility] Last Admin: 02/26/19 09:56 Dose: Not Given Furosemide (Lasix Injection -) 10 mg IVPUSH BID@0600,1400 [facility] Last Admin: 02/27/19 06:08 Dose: 10 mg Gabapentin (Neurontin -) 200 mg PO HS [facility] Last Admin: 02/26/19 21:12 Dose: Not Given Heparin Sodium (Porcine) (Heparin -) 5,000 unit SQ BID [facility] Last Admin: 02/26/19 21:12 Dose: 5,000 unit Lactated Ringer's (Lactated Ringers Solution) 1,000 ml in 1,000 mls @ 75 mls/ hr IV ASDIR [facility] Last Admin: 02/27/19 01:36 Dose: 75 mls/hr Lactated Ringer's (Lactated Ringers Solution) 1,000 ml in 1,000 mls @ 150 mls/ hr IV ASDIR [facility] Stop: 02/28/19 15:39 Last Admin: 02/26/19 18:26 Dose: 150 mls/hr Metoprolol Succinate (Toprol Xl -) 25 mg PO DAILY [facility] Last Admin: 02/26/19 09:56 Dose: Not Given Morphine Sulfate (Morphine Injection -) 2 mg IVPUSH ONCE ONE Stop: 02/27/19 08:11 Pancrelipase (Karishma Chacon 36,000 Units Capsule) 1 cap PO TIDCM [facility] Last Admin: 02/27/19 07:41 Dose: Not Given Sertraline HCl (Zoloft -) 25 mg PO DAILY [facility] Last Admin: 02/26/19 09:56 Dose: Not Given Thiamine HCl (Vitamin B1 -) 100 mg PO DAILY [facility] Last Admin: 02/26/19 09:56 Dose: Not Given - Objective Vital Signs: Vital Signs Temperature 100.0 F H 02/27/19 05:58 Pulse Rate 76 02/27/19 05:58 Respiratory Rate 16 02/27/19 05:58 Blood Pressure 147/78 02/27/19 05:58 O2 Sat by Pulse Oximetry (%) 97 02/27/19 02:53 Constitutional: Yes: No Distress, Calm Eyes: Yes: Conjunctiva Clear HENT: Yes: Atraumatic Cardiovascular: Yes: Regular Rate and Rhythm Respiratory: Yes: Regular, CTA Bilaterally Gastrointestinal: Yes: Normal Bowel Sounds, Soft, Tenderness (rlq and llq) Neurological: Yes: Alert, Oriented Psychiatric: Yes: Alert, Oriented <Iva Addison - Last Filed: 02/27/19 08:11> History of Present Illness: patient seen at 6 pm still with abdominal pain TMaX of [address] Mingo Kaminski and will arrange transfer to [facility] for further evaluation and management Patient was dickey cultured - Current Medication List Current Medications: Active Medications Acetaminophen (Ofirmev Injection -) 1,000 mg IVPB Q6H PRN PRN Reason: PAIN LEVEL 1-6 Last Admin: 02/27/19 17:23 Dose: 1,000 mg Furosemide (Lasix Injection -) 10 mg IVPUSH BID@0600,1400 [facility] Last Admin: 02/27/19 15:14 Dose: Not Given Heparin Sodium (Porcine) (Heparin -) 5,000 unit SQ BID [facility] Last Admin: 02/26/19 21:12 Dose: 5,000 unit Lactated Ringer's (Lactated Ringers Solution) 1,000 ml in 1,000 mls @ 75 mls/ hr IV ASDIR [facility] Last Admin: 02/27/19 01:36 Dose: 75 mls/hr Lactated Ringer's (Lactated Ringers Solution) 1,000 ml in 1,000 mls @ 150 mls/ hr IV ASDIR [facility] Stop: 02/28/19 15:39 Last Admin: 02/27/19 10:32 Dose: 150 mls/hr Morphine Sulfate (Morphine Sulfate) 2 mg IVPUSH Q6H PRN PRN Reason: PAIN SCALE 6-10 Last Admin: 02/27/19 16:30 Dose: 2 mg - Objective Vital Signs: Vital Signs Temperature 101.9 F H 02/27/19 16:40 Pulse Rate 65 02/27/19 16:40 Respiratory Rate 18 02/27/19 16:40 Blood Pressure 158/86 02/27/19 16:40 O2 Sat by Pulse Oximetry (%) 97 02/27/19 09:00 Labs: CBC, BMP 02/27/19 06:45 02/27/19 06:45 <Mert Galvez - Last Filed: 02/27/19 18:34> Problem List - Problems (1) Acute pancreatitis Assessment/Plan: -LR AT 150cc/hr x 3 bags -replace NGT will follow up with abdominal xray for placement, if in place start feeds at ordered rate -monitor lipase and amylase level -pain control Code(s): K85.90 - ACUTE PANCREATITIS WITHOUT NECROSIS OR INFECTION, UNSP (2) Pancreatic necrosis Assessment/Plan: -repeat CT scan reviewed Code(s): K86.89 - OTHER SPECIFIED DISEASES OF PANCREAS <Iva Addison - Last Filed: 02/27/19 08:11> - Problems (1) Acute pancreatitis Assessment/Plan: acute on chronic pancreatitis secondary to Alcohol with focus of pancreatic necrosis, there is no evidence of infected necrotic tissue R> for transfer for further evaluation and managment Code(s): K85.90 - ACUTE PANCREATITIS WITHOUT NECROSIS OR INFECTION, UNSP <Mert Galvez - Last Filed: 02/27/19 18:34>
[2019-02-27] MEDS: metoPROLOL SUCCINATE 25 MG TAB.SR.24H (FP) PO SCH (10:33)
[2019-02-27] MEDS: FERROUS SO4 325 MG TABLET (FP) PO SCH (10:33)
[2019-02-27] MEDS: HEPARIN NA (PORCINE) 5,000 UNITS/ML 1ML VIAL SQ SCH (10:33)
[2019-02-27] MEDS: SERTRALINE HCL 25 MG TABLET (FP) PO SCH (10:33)
[2019-02-27] MEDS: THIAMINE HCL 100 MG TABLET (FP) PO SCH (10:33)
[2019-02-27] MEDS: FOLIC ACID 1 MG TABLET (FP) PO SCH (10:33)
[2019-02-27] MEDS: ASPIRIN 81 MG CHEWABLE TABLETS PO SCH (10:33)
[2019-02-27] MEDS ORDERED: MORPHINE SULFATE 2 MG/ML VIAL IVPUSH PRN (16:09)
[2019-02-27 19:34] LABS: PH,URINE 7.5 (5.0-8.0); URINE APPEARANCE CLEAR; URINE BILIRUBIN NEGATIVE (NEGATIVE); URINE COLOR YELLOW; URINE GLUCOSE (UA) NEGATIVE (NEGATIVE); URINE KETONE NEGATIVE (NEGATIVE); URINE LEUK ESTERASE NEGATIVE (NEGATIVE); URINE NITRITE NEGATIVE (NEGATIVE); URINE PROTEIN NEGATIVE (NEGATIVE)
--- NOTE | 2019-02-27 21:39 | PN ---
Progress Note, Physician - Current Medication List Current Medications: Active Medications Acetaminophen (Ofirmev Injection -) 1,000 mg IVPB Q6H PRN PRN Reason: PAIN LEVEL 1-6 Last Admin: 02/27/19 17:23 Dose: 1,000 mg Furosemide (Lasix Injection -) 10 mg IVPUSH BID@0600,1400 [facility] Last Admin: 02/27/19 15:14 Dose: Not Given Heparin Sodium (Porcine) (Heparin -) 5,000 unit SQ BID [facility] Last Admin: 02/26/19 21:12 Dose: 5,000 unit Lactated Ringer's (Lactated Ringers Solution) 1,000 ml in 1,000 mls @ 75 mls/ hr IV ASDIR [facility] Last Admin: 02/27/19 18:59 Dose: Not Given Lactated Ringer's (Lactated Ringers Solution) 1,000 ml in 1,000 mls @ 150 mls/ hr IV ASDIR [facility] Stop: 02/28/19 15:39 Last Admin: 02/27/19 10:32 Dose: 150 mls/hr Morphine Sulfate (Morphine Sulfate) 2 mg IVPUSH Q6H PRN PRN Reason: PAIN SCALE 6-10 Last Admin: 02/27/19 16:30 Dose: 2 mg - Objective Vital Signs: Vital Signs Temperature 101.9 F H 02/27/19 16:40 Pulse Rate 65 02/27/19 16:40 Respiratory Rate 18 02/27/19 16:40 Blood Pressure 158/86 02/27/19 16:40 O2 Sat by Pulse Oximetry (%) 97 02/27/19 09:00 Labs: CBC, BMP 02/27/19 06:45 02/27/19 06:45 Problem List - Problems (1) Acute pancreatitis Code(s): K85.90 - ACUTE PANCREATITIS WITHOUT NECROSIS OR INFECTION, UNSP (2) EtOH dependence Code(s): F10.20 - ALCOHOL DEPENDENCE, UNCOMPLICATED (3) Hx of CABG Code(s): Z95.1 - PRESENCE OF AORTOCORONARY BYPASS GRAFT (4) Anemia Code(s): D64.9 - ANEMIA, UNSPECIFIED Qualifiers: Anemia type: unspecified type Qualified Code(s): D64.9 - Anemia, unspecified (5) COPD (chronic obstructive pulmonary disease) Code(s): J44.9 - CHRONIC OBSTRUCTIVE PULMONARY DISEASE, UNSPECIFIED (6) HLD (hyperlipidemia) Code(s): E78.5 - HYPERLIPIDEMIA, UNSPECIFIED Qualifiers: Hyperlipidemia type: pure hypercholesterolemia Qualified Code(s): E78.00 - Pure hypercholesterolemia, unspecified; E78.0 - Pure hypercholesterolemia (7) HTN (hypertension) Code(s): I10 - ESSENTIAL (PRIMARY) HYPERTENSION (8) CAD (coronary artery disease) Code(s): I25.10 - ATHSCL HEART DISEASE OF [place] CORONARY ARTERY W/O ANG PCTRS
[2019-02-27 22:42] VITALS: BP 144/79; PULSE 61; TEMP 99.3
== END 2019-02-28 00:08 | disposition short-term general hospital (02) | DRG 282 ==
LOC: JER 12:46 → JERBED 18:48 → J7W 20:44
PROVIDERS: ADMIT Internal Medicine; ATTEND Internal Medicine
DX: K85.21 Alcohol induced acute pancreatitis with uninfected necrosis (principal); K86.0 Alcohol-induced chronic pancreatitis; K86.89 Other specified diseases of pancreas; I10 Essential (primary) hypertension; F10.20 Alcohol dependence, uncomplicated; I25.10 Atherosclerotic heart disease of native coronary artery without angina pectoris; Z95.1 Presence of aortocoronary bypass graft; J44.9 Chronic obstructive pulmonary disease, unspecified; D64.9 Anemia, unspecified; F41.9 Anxiety disorder, unspecified; F32.9 Major depressive disorder, single episode, unspecified; Z95.4 Presence of other heart-valve replacement; F17.210 Nicotine dependence, cigarettes, uncomplicated; E86.0 Dehydration; E78.5 Hyperlipidemia, unspecified; I82.3 Embolism and thrombosis of renal vein
CPT/HCPCS: 36415; 71045-TC-FY; 74018-TC-FY; 74019-TC-FY; 74160-TC; 74177-TC; 80048; 80053; 81003; 82150; 83605; 83690; 83735; 84100; 85025; 85027; 87040; 87086; 93005; 93010; 99283-25; J0131; J1644; J7030; Q9967

== ENCOUNTER 2019-07-26 10:54 | Emergency (ER) | payer OTHER ==
[2019-07-26 11:24] VITALS: TEMP 98; BMI 17.7
--- NOTE | 2019-07-26 12:09 | PDOC ---
Attending Attestation - Resident Resident Name: Alisia Posadas - HPI HPI: 07/26/19 16:13 Pt presents to the ED for worsening of her chronic bilateral lower extremity twitching movements and falling off the couch x 2. Patient has a history of chronic slurred speech secondary to bleed two years ago. Patient admits to drinking last night. Normally ambulates with a cane. - Physicial Exam PE: 07/26/19 16:19 Agree with resident exam. patient is alert and oriented and in no acute distress. Neuro: alert and oriented x 3, CN grossly intact, + mild slurred speech, + intermittent jerking movements of both lower extremities, moving all extremities with good strength. - Medical Decision Making 07/26/19 16:26 Pt presents to the ED intoxicated after fall from the sofa, complaining of worsening twitching movements of her legs. Denies other complaints except for slurred speech which is chronic. Will check CT head and C spine to rule out intracranial or cervical spinal injury. Labs are within normal limits. Will discharge home if able to ambulate
--- NOTE | 2019-07-26 12:20 | PDOC ---
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 She states that the pt does have frequent involuntary leg movements at baseline, but these generally occur at night. Today, the niece saw the movements while the patient was awake. She then observed the pt close her eyes and start shaking, so she called an ambulance. The niece says that EMS told her that the patient did not have a seizure, but she is not sure why they thought this. The niece does help Ms Carter take her medications daily. She notes that she did not give the patient her nighttime medications yesterday as she was concerned that the pt had been drinking, and she was not sure if it was safe to give them. She notes that the patient has been sleepier than normal today and has changes in her speech. She feels that the pt's face looks the same as always , and she has not noticed any focal weakness. She is also not aware of any recent symptoms including fevers, cough, dysuria, vomiting, or other signs of infection. She does note that the pt's significant other reported that she fell off of the couch 2-3 times this morning, but there was no report of LOC or injury. The patient does not provide any additional information, stating only that her leg movements are bothering her. Past History - Past Medical History Allergies/Adverse Reactions: Allergies Allergy/AdvReac Type Severity Reaction Status Date / Time No Known Allergies Allergy Verified 07/26/19 11:23 Home Medications: Ambulatory Orders Ferrous Sulfate 325 mg PO DAILY 01/31/17 Furosemide [Lasix -] 20 mg PO BID@0600,1400 #60 tablet 01/12/18 Amlodipine Besylate [Norvasc -] 5 mg PO DAILY 05/01/18 Aspirin [ASA -] 81 mg PO DAILY #30 tab.chew 05/03/18 Folic Acid - 1 mg PO DAILY #30 tablet 05/03/18 Potassium Chloride 20 meq PO DAILY #30 tablet.er 05/03/18 Thiamine HCl [Vitamin B1 -] 100 mg PO DAILY #30 tablet 05/03/18 Atorvastatin Ca [Lipitor] 40 mg PO HS 06/17/18 Lipase/Protease/Amylase [Karishma Chacon 36,000 Units Capsule] 1 cap PO TIDCM #90 capsule. 06/25/18 Nicotine Patch [Nicoderm Patch -] 14 mg TD DAILY #30 patch 06/25/18 Sertraline HCl [Zoloft -] 25 mg PO DAILY #30 tablet 06/25/18 Anemia: No Asthma: No Cancer: No Cardiac Disorders: Yes (mitral valve repair) CVA: No COPD: No CHF: No DVT: No Dementia: No Diabetes: No GI Disorders: Yes (GERD, PANCREATITIS) Disorders: No HTN: Yes Hypercholesterolemia: Yes Kidney Stones: No Liver Disease: No Psychiatric Problems: Yes (panic attacks) Seizures: Yes (04/10 alcohol abuse) Thyroid Disease: No - Surgical History Abdominal Surgery: No Appendectomy: No Cardiac Surgery: Yes (mitral valve repair) Cholecystectomy: No Lung Surgery: No Neurologic Surgery: Yes (S/P FALL R craniotomy in 04/10) Orthopedic Surgery: No - Reproductive History PID: No - Immunization History Immunization Up to Date: Yes - Psycho Social/Smoking Cessation Hx Smoking Status: Yes Smoking History: Never smoked Have you smoked in the past 12 months: No Number of Cigarettes Smoked Daily: 20 Cigars Per Day: 0 'Breaking Loose' booklet given: 06/17/18 Hx Alcohol Use: Yes Drug/Substance Use Hx: Yes Substance Use Type: Alcohol Hx Substance Use Treatment: Yes Review of Systems - Review of Systems Comments:: General: No fevers, no chills, no weight or appetite change, no malaise HEENT: No changes in vision, no changes in hearing, no congestion, no sore throat CV: No chest pain, no palpitations, no LE edema Pulm: No SOB, no cough, no wheezing GI: No nausea or vomiting, no change in bowel habits, no melena : No frequency, no urgency, no dysuria Musc: No back pain, no joint swelling, no recent injury. +Fall Skin: No rash, no lesions, no erythema Endo: No excessive thirst, no heat/cold intolerance Heme: No unusual bruising or bleeding, no swollen glands Neuro: No syncope, no numbness/tingling, no focal weakness. +Seizures. + Involuntary leg movements Vasc: No claudication Psych: No recent change in mood, no SI or HI. 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 The niece reports that the pt did not take her medications last night or this morning as there was some concern that she had been drinking. - Unclear whether pt is currently at baseline as both pt and niece are poor historians. Unclear time frame for possible changes in speech, movements - Report of 3x possible falls today - Ddx broad, including infection (eg UTI, pneumonia. No specific symptoms reported), worsening of baseline, intoxication. Possible seizure w/ postictal state, but unlikely given duration. Less likely CVA given no focal deficits. - CBC, CMP, trop, EKG, CXR, CT head, CT c-spine 07/26/19 12:53 - CBC unremarkable - Alcohol 295. Likely explains slurred speech and somnolence - Chemistry pending 07/26/19 13:58 - Chemistry notable for hypokalemia at 3.4. Has been similar in the past; will give PO potassium 07/26/19 15:19 - Pt now clinically sober, requesting to be discharged - EKG to be completed - Will ensure pt is able to safely ambulate 07/26/19 17:35 - Pt able to ambulate w/ steady gait - Will d/c home Discussed with Dr Connor Posadas PGY2 Discharge - Discharge Information Problems reviewed: Yes Clinical Impression/Diagnosis: Alcohol dependence with uncomplicated intoxication Condition: Stable Disposition: HOME - Follow up/Referral Referrals: Antonio,Kenneth N., MD [Primary Care Provider] - - Patient Discharge Instructions Patient Printed Discharge Instructions: DI for Alcohol Abuse Additional Instructions: Discharge Instructions: You were seen in the emergency department for slurred speech. You were found to be intoxicated with a high alcohol level. Continue to take all of your home medications as instructed. You may take them even if you are drinking, though it is strongly recommended that you stop drinking alcohol. Consider going to detox and rehab for help with your drinking. Follow up with your regular doctor within the next week. You indicated that your involuntary leg movements have been worsening, and your medications might need to be adjusted. Seek immediate care for any worsening symptoms, any falls, chest pain, difficulty breathing, or any other medical emergency. - Post Discharge Activity
[2019-07-26 13:14] LABS: BASO % 0.3 % (0-2.0); EOS % 0.4 % (0-4.5); HEMATOCRIT 29.6 % (32.4-45.2); LYMPH % 36.3 % (8-40); MCH 36.2 pg (25.7-33.7); MCHC 33.9 g/dl (32.0-36.0); MEAN CELL VOLUME 106.9 fl (80-96); MONO % 6.3 % (3.8-10.2); NEUT % 56.7 % (42.8-82.8); PLATELET COUNT 184 K/MM3 (134-434); RBC 2.77 M/mm3 (3.60-5.2); WHITE BLOOD COUNT 4.9 K/mm3 (4.0-10.0)
[2019-07-26 13:29] LABS: INR 1.08 (0.83-1.09); PROTHROMBIN TIME (PATIENT) 12.8 SEC (9.7-13.0)
[2019-07-26 13:32] LABS: ACTIVATED PTT 36.5 SECONDS (25.2-36.5)
[2019-07-26 13:42] LABS: ALBUMIN 3.5 g/dl (3.4-5.0); ALK PHOS 154 U/L (45-117); ANION GAP 16 MMOL/L (8-16); BILIRUBIN,TOTAL 0.2 mg/dL (0.2-1); BLOOD UREA NITROGEN 15.7 mg/dL (7-18); CHLORIDE 106 mmol/L (98-107); CO2 20 mmol/L (21-32); CREATININE 0.7 mg/dL (0.55-1.3); GLUCOSE,RANDOM 70 mg/dL (74-106); POTASSIUM 3.4 mmol/L (3.5-5.1); SGOT/AST 116 U/L (15-37); SGPT/ALT 29 U/L (13-61); SODIUM 142 mmol/L (136-145); TOT PROT 7.1 g/dl (6.4-8.2)
[2019-07-26] MEDS ORDERED: POTASSIUM CHLORIDE ORAL LIQUID 20 MEQ/15 ML PO ONE (14:02)
[2019-07-26 14:37] LABS: PH,URINE 5.5 (5.0-8.0); URINE APPEARANCE CLEAR; URINE BILIRUBIN NEGATIVE (NEGATIVE); URINE COLOR DK YELLOW; URINE GLUCOSE (UA) NEGATIVE (NEGATIVE); URINE KETONE NEGATIVE (NEGATIVE); URINE LEUK ESTERASE NEGATIVE (NEGATIVE); URINE NITRITE NEGATIVE (NEGATIVE); URINE PROTEIN TRACE (NEGATIVE)
[2019-07-26] MEDS ORDERED: POTASSIUM CHLORIDE ORAL LIQUID 20 MEQ/15 ML ONE (14:37)
[2019-07-26 14:47] LABS: ANISOCYTOSIS 1+; MACROCYTOSIS 1+
[2019-07-26 14:48] LABS: PLATELET ESTIMATE ADEQUATE
[2019-07-26 14:49] LABS: COCAINE, UR NEGATIVE ng/ml (CUTOFF=300); METHADONE, UR NEGATIVE ng/ml (CUTOFF=300); OPIATES, URI NEGATIVE ng/ml (CUTOFF=300); PHENCYCLIDINE,URINE NEGATIVE ng/ml (CUTOFF=25); URINE AMPHETAMINES NEGATIVE ng/ml (CUTOFF=500); URINE BARBITURATES NEGATIVE ng/ml (CUTOFF=200); URINE BENZODIAZEPINES NEGATIVE ng/ml (CUTOFF=200)
[2019-07-26 15:24] VITALS: BP 130/67; PULSE 92
--- NOTE | 2019-07-27 16:08 | EKG ---
Test Reason : Blood Pressure : / mmHG Vent. Rate : 097 BPM Atrial Rate : 097 BPM P-R Int : 128 ms QRS Dur : 070 ms QT Int : 396 ms P-R-T Axes : 068 058 076 degrees QTc Int : 502 ms NORMAL SINUS RHYTHM SEPTAL INFARCT (CITED ON OR BEFORE 09-JAN-2018) PROLONGED QT ABNORMAL ECG WHEN COMPARED WITH ECG OF 20-FEB-2019 14:47, VENT. RATE HAS INCREASED BY 41 BPM Confirmed by MD RASHAD, MIRLANDE ([id number]) on 07/27/2019 4:07:44 PM Referred By: Confirmed By:MIRLANDE SOLORZANO MD
== END 2019-07-26 17:53 | disposition home or self-care (01) ==
LOC: JER 10:54
DX: F10.20 Alcohol dependence, uncomplicated (principal); E87.6 Hypokalemia; I25.10 Atherosclerotic heart disease of native coronary artery without angina pectoris; I10 Essential (primary) hypertension; K86.0 Alcohol-induced chronic pancreatitis; F32.9 Major depressive disorder, single episode, unspecified
CPT/HCPCS: 36415; 70450-TC; 71045-TC-FY; 72125-TC; 80053; 80307; 81003; 82550; 84484; 85025; 85610; 85730; 87086; 93005; 93010; 99282-25

== ENCOUNTER 2019-08-02 10:21 | Inpatient (IN) | payer OTHER ==
[2019-08-02 11:25] VITALS: BMI 14.8
--- NOTE | 2019-08-02 11:42 | HP ---
CIWA Score Nausea/Vomitin-Mild Nausea/No Vomiting Muscle Tremors: 4-Moderate,w/Arms Extend Anxiety: 3 Agitation: 2 Paroxysmal Sweats: 2 Orientation: 3-Disoriented Date>2 days Tacttile Disturbances: 0-None Auditory Disturbances: 0-None Visual Disturbances: 0-None Headache: 0-None Present CIWA-Ar Total Score: 15 - Admission Criteria OASAS Guidelines: Admission for Medically Managed Detox: Requires at least one of the followin. CIWA greater than 12 2. Seizures within the past 24 hours 3. Delirium tremens within the past 24 hours 4. Hallucinations within the past 24 hours 5. Acute intervention needed for co occurring medical disorder 6. Acute intervention needed for co occurring psychiatric disorder 7. Severe withdrawal that cannot be handled at a lower level of care (continued vomiting, continued diarrhea, abnormal vital signs) requiring intravenous medication and/or fluids 8. Admitting History and Physical - Admission Chief Complaint: " I'm tired of being sick. I used to be an active and healthy person." History of Present Illness: 58 year old female with alcohol dependence with withdrawals. She has multiple medical problems with seizures secondary to a hematoma 1 year ago which required surgery to remove blood and bleeding. She has also had heart surgery for valvular heart disease. She was just seen in [facility] ED 1 day ago due to fall and unsteady gait. The work up was negative and CT of head done in ER was also negative. Alcohol: 1 pint vodka daily, last drank yesterday. Denies other substances of abuse. Nicotine: 1/2 PPD for many years, started smoking at 17 years old. PMH: Mitral Valve replacement 5-6 years ago. Seizure Disorder, HTN, HLD, GERD, Pancreatitis Psych: Depression on Zoloft but ran out of couple of weeks ago History Source: Patient Limitations to Obtaining History: No Limitations - Past Medical History [employer]: Yes: Seizure, Other (SDH) Cardiovascular: Yes: HTN, Hyperlipdemia Pulmonary: Yes: COPD Gastrointestinal: Yes: GERD, Pancreatitis ...LMP: 01/08/97 Heme/Onc: Yes: Anemia Psych: Yes: Addictions, Anxiety, Depression, Other (ETOH abuse) - Past Surgical History Past Surgical History: Yes: Valve Replacement - Advance Directives Advance Directives: No: Living Will, Health Care Proxy, DNR - Smoking History Smoking history: Former smoker Have you smoked in the past 12 months: No Aproximately how many cigarettes per day: 20 - Alcohol/Substance Use Hx Alcohol Use: Yes - Social History ADL: Independent History of Recent Travel: No Admission ROS S - HPI Allergies/Adverse Reactions: Allergies Allergy/AdvReac Type Severity Reaction Status Date / Time No Known Allergies Allergy Verified 08/02/19 10:35 Patient History - Patient Medical History Hx Anemia: No Hx Asthma: No Hx Chronic Obstructive Pulmonary Disease (COPD): No Hx Cancer: No Hx Cardiac Disorders: Yes (mitral valve repair) Hx Congestive Heart Failure: No Hx Hypertension: Yes Hx Hypercholesterolemia: Yes Hx Pacemaker: No HX Cerebrovascular Accident: No Hx Seizures: Yes (04/10 alcohol abuse) Hx Dementia: No Hx Diabetes: No Hx Gastrointestinal Disorders: Yes (GERD, PANCREATITIS) Hx Liver Disease: No Hx Genitourinary Disorders: No Hx Sexually Transmitted Disorders: No Hx Renal Disease (ESRD): No Hx Thyroid Disease: No Hx Human Immunodeficiency Virus (HIV): No Hx Hepatitis C: No Hx Depression: Yes Hx Suicide Attempt: No Hx Bipolar Disorder: No Hx Schizophrenia: No - Patient Surgical History Past Surgical History: Yes Hx Neurologic Surgery: Yes (S/P FALL R craniotomy in 04/10) Hx Cataract Extraction: No Hx Cardiac Surgery: Yes (mitral valve repair) Hx Lung Surgery: No Hx Breast Surgery: No Hx Breast Biopsy: No Hx Abdominal Surgery: No Hx Appendectomy: No Hx Cholecystectomy: No Hx Genitourinary Surgery: No Hx Section: No Hx Orthopedic Surgery: No Hx Hysterectomy: No Other Surgical History: hysterectomy at age 42 yrs old. Anesthesia Reaction: No - PPD History Previous Implant?: Yes Documented Results: Negative w/proof Implanted On Prior [facility] Admission?: Yes Date: 01/11/18 Results: 0MM PPD to be Administered?: Yes - Reproductive History Last Menstrual Period: 01/08/97 - Smoking Cessation Smoking history: Former smoker Have you smoked in the past 12 months: No Aproximately how many cigarettes per day: 20 Cigars Per Day: 0 Hx Chewing Tobacco Use: No Initiated information on smoking cessation: No - Substances abused Alcohol Substance route: Oral Frequency: Daily Amount used: 1 pint of vodka Age of first use: 16 Date of last use: 08/01/19 Admission Physical Exam [facility] - Vital Signs Vital Signs: Vital Signs - 24 hr 08/02/19 10:44 Temperature 99.3 F Pulse Rate 85 Respiratory 18 Rate Blood Pressure 137/88 Cleared for Admission [facility] - Detox or Rehab S Level of Care: Medically Managed Detox Regimen/Protocol: Ativan Claeared for Rehab Admission: No Screened but not Admitted - Documentation of Visit Screened but not Admitted: No Breathalyzer - Breathalyzer Breathalyzer: 0 (last drank yesterday) Inpatient Rehab Admission - Rehab Decision to Admit Inpatient rehab admission?: No
[2019-08-02] MEDS ORDERED: MELATONIN 5 MG TABLETS PO PRN (11:46)
[2019-08-02] MEDS ORDERED: ACETAMINOPHEN 325 MG TABLET (FP) PO PRN ×2 (11:46)
[2019-08-02] MEDS ORDERED: METHOCARBAMOL 500 MG TABLET PO PRN (11:46)
[2019-08-02] MEDS ORDERED: MENTHOL/PHENOL 1 EACH UD MM PRN (11:46)
[2019-08-02] MEDS ORDERED: MAG HYDROX/AL HYDROX/SIMETH 30 ML UNIT-DOSE CUP PO PRN (11:46)
[2019-08-02] MEDS ORDERED: hydrOXYzine PAMOATE 25 MG CAPSULE (FP) PO PRN (11:46)
[2019-08-02] MEDS ORDERED: MAGNESIUM CITRATE 300 ML BOTTLE PO PRN (11:46)
[2019-08-02] MEDS ORDERED: LORazepam 1 MG TABLET PO PRN (11:46)
[2019-08-02] MEDS ORDERED: MAGNESIUM HYDROX 2400MG/30ML ORAL SUSPENSION 30 ML CUP PO PRN (11:46)
[2019-08-02] MEDS ORDERED: IBUPROFEN 400 MG TABLET (FP) PO PRN (11:46)
[2019-08-02] MEDS ORDERED: BISMUTH SUBSALICYLATE 524 MG/30 ML UD PO PRN (11:46)
[2019-08-02] MEDS: LORazepam 2 MG TABLET PO SCH ×3 (13:57→23:36)
[2019-08-02 14:42] LABS: HEMATOCRIT 30.6 % (32.4-45.2); HEMOGLOBIN 10.2 GM/dL (10.7-15.3); MCH 36.4 pg (25.7-33.7); MCHC 33.3 g/dl (32.0-36.0); MEAN CELL VOLUME 109.2 fl (80-96); MEAN PLT VOLUME 9.8 fl (7.5-11.1); PLATELET COUNT 170 K/MM3 (134-434); WHITE BLOOD COUNT 7.1 K/mm3 (4.0-10.0)
[2019-08-02 14:52] LABS: ALBUMIN 3.6 g/dl (3.4-5.0); BILIRUBIN,TOTAL 0.4 mg/dL (0.2-1); BLOOD UREA NITROGEN 10.7 mg/dL (7-18); CALCIUM 8.3 mg/dL (8.5-10.1); POTASSIUM 3.9 mmol/L (3.5-5.1); TOT PROT 7.6 g/dl (6.4-8.2)
[2019-08-02] MEDS: FUROSEMIDE 20 MG TABLET (FP) PO SCH (15:13)
[2019-08-02] MEDS: LIPASE/PROTEASE/AMYLASE 36,000 UNIT CAPSULE PO SCH (17:22)
[2019-08-02] MEDS: THIAMINE HCL 100 MG TABLET (FP) PO SCH (23:36)
[2019-08-02] MEDS: ATORVASTATIN CA 40 MG TABLET (FP) PO SCH (23:36)
[2019-08-03] MEDS: FUROSEMIDE 20 MG TABLET (FP) PO SCH ×2 (05:59→13:23)
[2019-08-03] MEDS: LORazepam 2 MG TABLET PO SCH ×4 (05:59→22:18)
[2019-08-03] MEDS: LIPASE/PROTEASE/AMYLASE 36,000 UNIT CAPSULE PO SCH ×3 (08:05→17:33)
[2019-08-03] MEDS ORDERED: GABAPENTIN 100 MG CAPSULE PO SCH (10:00)
[2019-08-03] MEDS: amLODIPine BESYLATE 5 MG TABLET (FP) PO SCH (10:20)
[2019-08-03] MEDS: ASPIRIN 81 MG CHEWABLE TABLETS PO SCH (10:20)
[2019-08-03] MEDS: POTASSIUM CHLORIDE TABS 20 MEQ TABLET.ER (FP) PO SCH (10:20)
[2019-08-03] MEDS: PRENATAL VITAMINS W/ FOLIC ACID TABLET (FP) PO SCH (10:20)
--- NOTE | 2019-08-03 12:15 | CONSULT ---
[facility] Psychiatric Consult - Data Date of interview: 08/03/19 Admission source: [facility] Identifying data: Revisit to [facility] and admission to [address] [place] [address] for this 58 y/o AA female self-referred for detoxification treatment. ABILIO issues : nicotine, alcohol. Patient is single, a mother of three, domiciled, unemployed, disabled ( uses cane for ambulation) and supported on [facility] benefits. Substance Abuse History: Discussed with patient. Details in current [facility] report as follows : Smoking history: Former smoker. Have you smoked in the past 12 months: No. Aproximately how many cigarettes per day: 20. Cigars Per Day: 0. Hx Chewing Tobacco Use: No. Initiated information on smoking cessation: No. - Substances abused. Alcohol. Substance route: Oral. Frequency: Daily. Amount used: 1 pint of vodka. Age of first use: 16. Date of last use: 08/01/19 Medical History: Medical profile is remarkable for GERD, antecedent of pancreatitis, seizures, hypertension, dyslipidemia, neuropathy, history of mitral valve repair (annuloplasty), neurosurgery (right craniotomy) for brain aneurysm, seizure disorder, CABG, left oophorectomy and hysterectomy (age 42). Psychiatric History: Patient denies history of psychiatric hospitalizations. Ms Raul used to be followed at the [facility] ([facility]) under the care of Dr Shaikh. Treated under the diagnoses of MDD and Anxiety Disorder. Patient has been prescribed sertaline. Chronically non-adherent to her medications. In this interview, she states that she has not taken zoloft " for more than three weeks ". Patient has been lost to psychiatric follow-up for months. In the meantime, she has been relying on the services of her primary care physician for medications refills. No history of suicide attempts. Physical/Sexual Abuse/Trauma History: Patient denies history of abuse. Additional Comment: No toxicology available for review. Mental Status Exam - Mental Status Exam Alert and Oriented to: Time, Place, Person Cognitive Function: Good Patient Appearance: Well Groomed (thin, frail habitus) Mood: Withdrawn, Hopeful Affect: Mood Congruent, Constricted Patient Behavior: Fatigued, Appropriate, Cooperative Speech Pattern: Clear, Appropriate Voice Loudness: Normal Thought Process: Intact, Goal Oriented Thought Disorder: Not Present Hallucinations: Denies Suicidal Ideation: Denies Homicidal Ideation: Denies Insight/Judgement: Poor Sleep: Fair Appetite: Poor, Weight loss Gait/Station: Other (slow, unsteady. Patient is provided with a walker for ambulation) Psychiatric Findings - Problem List ([place] 1, 2,3) (1) Alcohol use disorder Current Visit: Yes Status: Chronic (2) Nicotine dependence Current Visit: Yes Status: Chronic Qualifiers: Nicotine product type: cigarettes Substance use status: uncomplicated Qualified Code(s): F17.210 - Nicotine dependence, cigarettes, uncomplicated (3) Alcohol-induced mood disorder Current Visit: Yes Status: Chronic (4) History of depression Current Visit: Yes Status: Chronic - Initial Treatment Plan Initial Treatment Plan: Psychoeducation. Sleep hygiene. Support. Detoxification in progress. MAT services discussed with the patient. AA meetings. Zoloft 25 mg po daily. Side effects/benefits discussed with patient. Ms Carter has expressed her agreement with this plan of care. Gave consent (verbal) to MD. Hendricks.
--- NOTE | 2019-08-03 14:25 | PN ---
S CIWA - CIWA Score Nausea/Vomitin Muscle Tremors: 2 Anxiety: 1-Mildly Anxious Agitation: 1-Slight > Activity Paroxysmal Sweats: 2 Orientation: 0-Oriented Tacttile Disturbances: 0-None Auditory Disturbances: 0-None Visual Disturbances: 0-None Headache: 1-Very Mild CIWA-Ar Total Score: 9 S Progress Note (SOAP) Subjective: Diarrhea, sweats, tremors and generalized pain Objective: 08/03/19 14:22 Withdrawal sx Vital Signs - 8 hr 08/03/19 08/03/19 06:50 09:15 Temperature 100.4 F H 98.7 F Pulse Rate 84 112 H Respiratory 16 19 Rate Blood Pressure 116/101 H 146/99 VSS Laboratory Last Values WBC 7.1 K/mm3 (4.0-10.0) 08/02/19 12:00 RBC 2.80 M/mm3 (3.60-5.2) L 08/02/19 12:00 Hgb 10.2 GM/dL (10.7-15.3) L 08/02/19 12:00 Hct 30.6 % (32.4-45.2) L 08/02/19 12:00 MCV 109.2 fl (80-96) H 08/02/19 12:00 MCH 36.4 pg (25.7-33.7) H 08/02/19 12:00 MCHC 33.3 g/dl (32.0-36.0) 08/02/19 12:00 RDW 16.0 % (11.6-15.6) H 08/02/19 12:00 Plt Count 170 K/MM3 (134-434) 08/02/19 12:00 MPV 9.8 fl (7.5-11.1) 08/02/19 12:00 Sodium 136 mmol/L (136-145) 08/02/19 12:00 Potassium 3.9 mmol/L (3.5-5.1) 08/02/19 12:00 Chloride 103 mmol/L (98-107) 08/02/19 12:00 Carbon Dioxide 22 mmol/L (21-32) 08/02/19 12:00 Anion Gap 11 MMOL/L (8-16) 08/02/19 12:00 BUN 10.7 mg/dL (7-18) 08/02/19 12:00 Creatinine 1.0 mg/dL (0.55-1.3) 08/02/19 12:00 Est GFR (CKD-EPI)AfAm 72.42 08/02/19 12:00 Est GFR (CKD-EPI)NonAf 62.49 08/02/19 12:00 Random Glucose 209 mg/dL (74-106) H 08/02/19 12:00 Calcium 8.3 mg/dL (8.5-10.1) L 08/02/19 12:00 Total Bilirubin 0.4 mg/dL (0.2-1) 08/02/19 12:00 AST 81 U/L (15-37) H 08/02/19 12:00 ALT 30 U/L (13-61) 08/02/19 12:00 Alkaline Phosphatase 173 U/L (45-117) H 08/02/19 12:00 Total Protein 7.6 g/dl (6.4-8.2) 08/02/19 12:00 Albumin 3.6 g/dl (3.4-5.0) 08/02/19 12:00 RPR Titer Nonreactive (NONREACTIVE) 08/02/19 12:00 Labs noted, elevated glucose, denies DM Assessment: 08/03/19 14:23 Withdrawal sx Plan: Continue detox Increase oral fluid intake Hemoglobin A1C
[2019-08-03] MEDS: THIAMINE HCL 100 MG TABLET (FP) PO SCH (22:18)
[2019-08-03] MEDS: ATORVASTATIN CA 40 MG TABLET (FP) PO SCH (22:18)
[2019-08-04] MEDS: FUROSEMIDE 20 MG TABLET (FP) PO SCH (05:54)
[2019-08-04] MEDS: LORazepam 1 MG TABLET PO SCH ×2 (05:54→10:06)
[2019-08-04] MEDS: LIPASE/PROTEASE/AMYLASE 36,000 UNIT CAPSULE PO SCH ×2 (07:03→12:11)
[2019-08-04] MEDS ORDERED: SERTRALINE HCL 25 MG TABLET (FP) PO SCH (10:00)
[2019-08-04] MEDS: PRENATAL VITAMINS W/ FOLIC ACID TABLET (FP) PO SCH (10:06)
[2019-08-04] MEDS: amLODIPine BESYLATE 5 MG TABLET (FP) PO SCH (10:06)
[2019-08-04] MEDS: ASPIRIN 81 MG CHEWABLE TABLETS PO SCH (10:06)
[2019-08-04] MEDS: POTASSIUM CHLORIDE TABS 20 MEQ TABLET.ER (FP) PO SCH (10:06)
[2019-08-04 13:27] VITALS: BP 126/76; PULSE 88; TEMP 99
--- NOTE | 2019-08-04 15:41 | DS ---
[facility] Detox Discharge Summary Admission Date: 08/02/19 Discharge Date: 08/04/19 - History Present History: Alcohol Dependence Additional Comments: Patient demanded to leave AMA despite encouragement from staff to complete detox. Patient instructed to call [phone] if sick/withdrawal sxs and to see her PCP within 3 days and for all abnormal lab results. Patient left in stable condition. Pertinent Past History: Seizure disorder Heart disease Nicotine dependence HTN HLD COPD GERD Depression Alcohol dependence - Physical Exam Results Vital Signs: Vital Signs Temperature 99.0 F 08/04/19 12:47 Pulse Rate 88 08/04/19 12:47 Respiratory Rate 18 08/04/19 12:47 Blood Pressure 126/76 08/04/19 12:47 O2 Sat by Pulse Oximetry (%) Pertinent Admission Physical Exam Findings: Withdrawal sxs Laboratory Tests 08/02/19 08/02/19 08/02/19 12:00 12:00 12:00 WBC 7.1 RBC 2.80 L Hgb 10.2 L Hct 30.6 L MCV 109.2 H MCH 36.4 H MCHC 33.3 RDW 16.0 H Plt Count 170 MPV 9.8 Sodium 136 Potassium 3.9 Chloride 103 Carbon Dioxide 22 Anion Gap 11 BUN 10.7 Creatinine 1.0 Est GFR (CKD-EPI)AfAm 72.42 Est GFR (CKD-EPI)NonAf 62.49 Random Glucose 209 H Hemoglobin A1c % Calcium 8.3 L Total Bilirubin 0.4 AST 81 H ALT 30 Alkaline Phosphatase 173 H Total Protein 7.6 Albumin 3.6 RPR Titer Nonreactive 08/04/19 07:20 WBC RBC Hgb Hct MCV MCH MCHC RDW Plt Count MPV Sodium Potassium Chloride Carbon Dioxide Anion Gap BUN Creatinine Est GFR (CKD-EPI)AfAm Est GFR (CKD-EPI)NonAf Random Glucose Hemoglobin A1c % < 3.5 L Calcium Total Bilirubin AST ALT Alkaline Phosphatase Total Protein Albumin RPR Titer Labs reviewed: serum glucose 209 (high), A1c < 3.5%, elevated LFTs, anemia noted - Medication Discharge Medications: Ambulatory Orders Ferrous Sulfate 325 mg PO DAILY 01/31/17 Furosemide [Lasix -] 20 mg PO BID@0600,1400 #60 tablet 01/12/18 Amlodipine Besylate [Norvasc -] 5 mg PO DAILY 05/01/18 Aspirin [ASA -] 81 mg PO DAILY #30 tab.chew 05/03/18 Folic Acid - 1 mg PO DAILY #30 tablet 05/03/18 Potassium Chloride 20 meq PO DAILY #30 tablet.er 05/03/18 Thiamine HCl [Vitamin B1 -] 100 mg PO DAILY #30 tablet 05/03/18 Atorvastatin Ca [Lipitor] 40 mg PO HS 06/17/18 Lipase/Protease/Amylase [Karishma Chacon 36,000 Units Capsule] 1 cap PO TIDCM #90 capsule.dr 06/25/18 Sertraline HCl [Zoloft -] 25 mg PO DAILY #30 tablet 06/25/18 Gabapentin [Neurontin] 100 mg PO DAILY 08/02/19 - Diagnosis (1) Alcohol dependence with withdrawal, uncomplicated Status: Acute (2) Seizure disorder Status: Chronic (3) GERD (gastroesophageal reflux disease) Status: Chronic (4) CAD (coronary artery disease) Status: Chronic (5) COPD (chronic obstructive pulmonary disease) Status: Chronic (6) HLD (hyperlipidemia) Status: Chronic Qualifiers: Hyperlipidemia type: pure hypercholesterolemia Qualified Code(s): E78.00 - Pure hypercholesterolemia, unspecified; E78.0 - Pure hypercholesterolemia (7) HTN (hypertension) Status: Chronic (8) S/P MVR (mitral valve repair) Status: Chronic (9) History of depression Status: Chronic (10) Nicotine dependence Status: Chronic Qualifiers: Nicotine product type: cigarettes Substance use status: uncomplicated Qualified Code(s): F17.210 - Nicotine dependence, cigarettes, uncomplicated (11) Hyperglycemia Status: Acute (12) Elevated LFTs Status: Acute - AMA Did Patient Leave Against Medical Advice: Yes (Instructed to call [phone] if sick or withdrawal sxs)
[2019-08-05] MEDS ORDERED: LORazepam 0.5 MG TABLET PO PRN
[2019-08-05] MEDS ORDERED: LORazepam 0.5 MG TABLET PO SCH (05:00)
[2019-08-06] MEDS ORDERED: LORazepam 0.5 MG TABLET PO ONE (05:00)
== END 2019-08-04 14:11 | disposition left against medical advice (07) | DRG 894 ==
LOC: YASAS 10:21 → Y6N 12:39
PROVIDERS: ADMIT Allergy & Immunology; ATTEND Allergy & Immunology
PROC: HZ2ZZZZ Detoxification Services for Substance Abuse Treatment (ICD-10-PCS; principal; 2019-08-02)
DX: F10.230 Alcohol dependence with withdrawal, uncomplicated (principal); F17.210 Nicotine dependence, cigarettes, uncomplicated; F10.24 Alcohol dependence with alcohol-induced mood disorder; F32.9 Major depressive disorder, single episode, unspecified; I25.10 Atherosclerotic heart disease of native coronary artery without angina pectoris; I10 Essential (primary) hypertension; Z95.1 Presence of aortocoronary bypass graft; E78.5 Hyperlipidemia, unspecified; K86.9 Disease of pancreas, unspecified; G40.909 Epilepsy, unspecified, not intractable, without status epilepticus; G62.9 Polyneuropathy, unspecified; J44.9 Chronic obstructive pulmonary disease, unspecified; K21.9 Gastro-esophageal reflux disease without esophagitis; R94.5 Abnormal results of liver function studies; R73.9 Hyperglycemia, unspecified; Z95.2 Presence of prosthetic heart valve
CPT/HCPCS: 36415; 80053; 83036; 85027; 86593

== ENCOUNTER 2020-01-15 12:15 | Emergency (ER) | payer OTHER ==
[2020-01-15 12:52] VITALS: BMI 14.5
--- NOTE | 2020-01-15 13:01 | PDOC ---
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 for evaluation of hypertension. Patient reports she was being screened for rehabilitation when it was noted that she had a high blood pressure reading (170s/130s) and high heart rate (in the 100s?). At that time, patient was also shaky and warm. Last drink was on Monday. Does not feel she is in acute withdrawal. No fevers, chills, chest pain, or shortness of breath. ROS: Constitutional: no fever, no chills HEENT: no throat pain, no dysphagia Cardiovascular: no chest pain, no palpitations Respiratory: no cough, no shortness of breath Gastrointestinal: no abdominal pain, no nausea Genitourinary: no dysuria, no hematuria Musculoskeletal: no myalgia, no arthralgia Skin: no rash, no itching Neurologic: no headache, +shakiness Psych: no agitation, no anxiety PE: General: Awake, alert, and fully oriented, in no acute distress Head: No signs of trauma Eyes: EOMI, sclera anicteric ENT: Moist mucus membranes, Mild tongue fasciculations noted Neck: Normal ROM, supple Lungs: Lungs clear, Normal breath sounds Cardio: Regular rhythm, S1 and S2 present Abdomen: Soft, nontender. No guarding, no rebound, no masses Extremities: Normal range of motion, Distal pulses present Skin: Warm, Dry, normal turgor Neurologic: Cranial nerves II through XII grossly intact. Normal speech ED Course/MDM: DDX including but not limited to hypertension, vasovagal reaction, dehydration, hypoglycemia, ACS, arrythmia Initial Vital Signs Pulse BP Pulse Ox 101 H 125/98 98 01/15/20 12:49 01/15/20 12:49 01/15/20 12:49 BP is not hypertensive here Patient without any acute complaints: no chest pain, palpitations, or shortness of breath 01/15/20 13:01 [facility] POC Glucometer 95 UNITS (80-120) 01/15/20 13:27 Glucose within normal range EKG: rate 70, Qtc 464, NSR Low suspicion for ACS or abnormal heart rhythm as patient has non-acute EKG 01/15/20 13:[address] [facility] for rehab Return precautions given Stable for discharge Past History - Medical History Allergies/Adverse Reactions: Allergies Allergy/AdvReac Type Severity Reaction Status Date / Time lactose AdvReac Severe Verified 11/23/19 16:27 Home Medications: Ambulatory Orders Ferrous Sulfate 325 mg PO DAILY 01/31/17 Furosemide [Lasix -] 20 mg PO BID@0600,1400 #60 tablet 01/12/18 Amlodipine Besylate [Norvasc -] 5 mg PO DAILY 05/01/18 Aspirin [ASA -] 81 mg PO DAILY #30 tab.chew 05/03/18 Folic Acid - 1 mg PO DAILY #30 tablet 05/03/18 Potassium Chloride 20 meq PO DAILY #30 tablet.er 05/03/18 Thiamine HCl [Vitamin B1 -] 100 mg PO DAILY #30 tablet 05/03/18 Atorvastatin Ca [Lipitor] 40 mg PO HS 06/17/18 Lipase/Protease/Amylase [Karishma Chacon 36,000 Units Capsule] 1 cap PO TIDCM #90 capsule. 06/25/18 Sertraline HCl [Zoloft -] 25 mg PO DAILY #30 tablet 06/25/18 Gabapentin [Neurontin] 100 mg PO DAILY 08/02/19 Gabapentin [Neurontin -] 100 mg PO HS #30 capsule 11/26/19 Pantoprazole Sodium [Protonix -] 40 mg PO ACBK tablet.ec 11/26/19 Pantoprazole Sodium [Protonix -] 40 mg PO DAILY #30 tablet.ec 11/26/19 Anemia: No Asthma: No Cancer: No Cardiac Disorders: No CVA: No COPD: No CHF: No DVT: No Dementia: No Diabetes: No GI Disorders: No Disorders: No HTN: Yes (ON MEDS) Hypercholesterolemia: Yes Kidney Stones: No Liver Disease: No Psychiatric Problems: Yes (panic attacks) Seizures: Yes (Alcohol rlt- 07/15) Thyroid Disease: No - Surgical History Abdominal Surgery: No Appendectomy: No Cardiac Surgery: Yes (mitral valve repair) Cholecystectomy: No Lung Surgery: No Neurologic Surgery: Yes (S/P FALL R craniotomy in 04/10) Orthopedic Surgery: No - Reproductive History PID: No - Immunization History Immunization Up to Date: Yes - Psycho-Social/Smoking History Smoking Status: Yes Smoking History: Current every day smoker Have you smoked in the past 12 months: Yes Number of Cigarettes Smoked Daily: 10 Cigars Per Day: 0 Information on smoking cessation initiated: Yes 'Breaking Loose' booklet given: 11/21/19 - Substance Abuse Hx (Audit-C & DAST Scrn) How often the patient has a drink containing alcohol: 4 0r more times/wk Number of drinks the patient has on a typical day: 5 or 6 How often the patient has six or more drinks on one occasion: Less than monthly Score: In Men: 4 or > Positive; In Women: 3 or > Positive: 7 Screen Result (Pos requires Nsg. Audit-10AR): Positive In the last yr the pt used illegal drug/Rx for NonMed reason: No Score: Yes response is considered Positive: 0 Screen Result (Positive result requires Nsg. DAST-10): Negative *Physical Exam - Vital Signs Last Vital Signs Temp Pulse Resp BP Pulse Ox 101 H 125/98 98 01/15/20 12:49 01/15/20 12:49 01/15/20 12:49 Discharge - Discharge Information Problems reviewed: Yes Clinical Impression/Diagnosis: HTN (hypertension) Qualifiers: Hypertension type: unspecified Qualified Code(s): I10 - Essential (primary) hypertension Condition: Stable Disposition: HOME - Follow up/Referral - Patient Discharge Instructions Patient Printed Discharge Instructions: DI for High Blood Pressure Additional Instructions: You came to the emergency department for a high blood pressure reading. Your blood pressure was normal here. A fingerstick glucose check and EKG did not indicate acute pathology. Present to alcohol rehabilitation. Follow-up with a primary care provider this week to discuss this ED visit and to further evaluate your symptoms. Your workup is not complete until you do so. You have been referred to the [facility]. Immediate medical attention is required if you experience: severe headache, have a seizure, have focal numbness or weakness, chest pain, shortness of breath, or any new or concerning symptoms. If you think you are having an emergency, call for emergency medical services or present to the emergency department right away. - Post Discharge Activity
[2020-01-15 14:05] VITALS: BP 154/88; PULSE 75; TEMP 99
--- NOTE | 2020-01-15 14:55 | PDOC ---
Documentation entered by Joy Rose SCRIBE, acting as scribe for Radha Retana MD. Radha Retana MD: This documentation has been prepared by the scribe, Joy Cruz SCRIBE, under my direction and personally reviewed by me in its entirety. I confirm that the documentation accurately reflects all work, treatment, procedures, and medical decision making performed by me. Attending Attestation - Resident Resident Name: Aniyah Painting - ED Attending Attestation I have performed the following: I have examined & evaluated the patient, The case was reviewed & discussed with the resident, I agree w/resident's findings & plan, Exceptions are as noted - HPI HPI: 01/15/20 13:38 The patient is a 59 year old female with a significant PMH of AD s/p CABG, MV repair (2011), HTN, traumatic ICH s/p surgical evacuation w/ subsequent seizures, alcohol abuse, alcoholic pancreatitis, and depression who presents to the emergency department from [facility] for evaluation of high blood pressure. Patient notes she felt very warm from being outside when walking in from [facility]. SHe also endorsed feeling a little shaky. Patient reports being not sure if she felt any withdrawal symptoms before. Last drink was Monday (01/11/20) The patient denies chest pain, shortness of breath, headache and dizziness. Denies nausea, vomiting, diarrhea and constipation. Denies dysuria, frequency, urgency and hematuria. Allergies: NKA Social history: Alcohol use/abuse - Physicial Exam PE: 01/15/20 14:52 General: well appearing HEENT: NCAT, mild tongue fasciculations Chest: CTAB, good air entry CVS: + s1 s2, RRR Abdomen: soft, nt nd, no rebound, no guarding Extremities: warm and well perfused, mild hand tremors neuro: awake, alert, responds to questions appropriately, no focal deficits - Medical Decision Making 01/15/20 14:53 59 yo F here with episode of elevated BP and feeling warm at the time, BP improved without intervention and patient without any complaints at laz of evaluation, exam notable for mild withdrawal. Symptoms likely 2/2 walking in the heat and/or mild withdrawal. Doubt ACS or life threatening arrythmia as no chest pain and EKG NSR without ischemic changes. Plan: -d/c back to [facility], return precautions given This clinical encounter is taking place during a federal and state health care emergency attributable to the novel Titus Virus pandemic. The [place] of the Department of Health and Human Services has declared, pursuant to the Public Health Service Act 319F-3 (42 U.S.C. 247d-6d), that a covered persons activities related to medical countermeasures against COVID-19 will be immune from liability under Federal and State law. Discharge - Discharge Information Problems reviewed: Yes Clinical Impression/Diagnosis: HTN (hypertension) Condition: Stable Disposition: HOME - Follow up/Referral - Patient Discharge Instructions Patient Printed Discharge Instructions: DI for High Blood Pressure Additional Instructions: You came to the emergency department for a high blood pressure reading. Your blood pressure was normal here. A fingerstick glucose check and EKG did not indicate acute pathology. Present to alcohol rehabilitation. Follow-up with a primary care provider this week to discuss this ED visit and to further evaluate your symptoms. Your workup is not complete until you do so. You have been referred to the [facility]. Immediate medical attention is required if you experience: severe headache, have a seizure, have focal numbness or weakness, chest pain, shortness of breath, or any new or concerning symptoms. If you think you are having an emergency, call for emergency medical services or present to the emergency department right away. - Post Discharge Activity
--- NOTE | 2020-01-16 12:11 | EKG ---
Test Reason : Blood Pressure : / mmHG Vent. Rate : 070 BPM Atrial Rate : 070 BPM P-R Int : 130 ms QRS Dur : 068 ms QT Int : 430 ms P-R-T Axes : 061 044 055 degrees QTc Int : 464 ms POOR DATA QUALITY, INTERPRETATION MAY BE ADVERSELY AFFECTED NORMAL SINUS RHYTHM NORMAL ECG WHEN COMPARED WITH ECG OF 25-NOV-2019 06:47, QT HAS LENGTHENED Confirmed by GERALD VILLA, ELIEZER ([id number]) on 01/16/2020 12:11:30 PM Referred By: Confirmed By:ELIEZER DUARTE MD
== END 2020-01-15 14:10 | disposition home or self-care (01) ==
LOC: JER 12:15
DX: I10 Essential (primary) hypertension (principal)
CPT/HCPCS: 82962; 93005; 93010; 99284-25

== ENCOUNTER 2020-02-12 11:45 | Inpatient (IN) | payer OTHER ==
--- NOTE | 2020-02-12 11:58 | BHS.RME ---
Substance Use & Tx History - Substance Use History Alcohol Substance amount: 1pint vodka Frequency of use: Daily Substance route: Oral Date of Last Use: 02/12/20 (6am) Nicotine Substance amount: 1/2 pack Frequency of use: Daily Substance route: Smoking Date of Last Use: 02/12/20 Physical/Psych/Mental Status - Behavior General Behavior: Increased activity (restlessness, agitation) Eye Contact: Normal - Cooperativeness Cooperativeness: Cooperative - Thinking Thought Processes: Tight, Logical, Goal Directed Thought content: Future oriented - Physical Health Problems Is patient presently having any pain?: No Does patient presently have any injuries (include location): No Does patient currently have a fever: No Is patient : No CIWA Nausea/Vomitin Muscle Tremors: 3 Anxiety: 3 Agitation: 3 Paroxysmal Sweats: 2 Orientation: 0-Oriented Tacttile Disturbances: 0-None Auditory Disturbances: 0-None Visual Disturbances: 0-None Headache: 0-None Present CIWA-Ar Total Score: 13
[2020-02-12 14:10] VITALS: BMI 13.5
--- NOTE | 2020-02-12 15:16 | HP ---
CIWA Score Nausea/Vomitin Muscle Tremors: 3 Anxiety: 3 Agitation: 3 Paroxysmal Sweats: 2 Orientation: 0-Oriented Tacttile Disturbances: 0-None Auditory Disturbances: 0-None Visual Disturbances: 0-None Headache: 0-None Present CIWA-Ar Total Score: 13 - Admission Criteria OASAS Guidelines: Admission for Medically Managed Detox: Requires at least one of the followin. CIWA greater than 12 2. Seizures within the past 24 hours 3. Delirium tremens within the past 24 hours 4. Hallucinations within the past 24 hours 5. Acute intervention needed for co occurring medical disorder 6. Acute intervention needed for co occurring psychiatric disorder 7. Severe withdrawal that cannot be handled at a lower level of care (continued vomiting, continued diarrhea, abnormal vital signs) requiring intravenous medication and/or fluids 8. Admitting History and Physical - Admission Chief Complaint: alcohol detox History of Present Illness: CC: alcohol detox HPI: Nina Carter is a 59 year old woman with PMH CAD s/p CABG, MV repair (2011), HTN, COPD?, traumatic ICH s/p surgical evacuation w/ subsequent seizures, who presents for alcohol detox. She is a poor historian, states she has 'memory problem's, refuses to answer questions about her medical problems and requests her sons father be contacted for these questions. She has not eaten in 5 days, has been drinking 1 pint of vodka daily, and feels depressed. This is not her first time at [facility], she was admitted in Jun 2019 for detox but left AMA after 2 days. In October she was seen at [facility] after a fall/seizure and was admitted for several days. Substance: Alcohol Frequency: 1 pint vodka/day Age of first use: 17 Date of Last use: today 02/12/20 Substance: Nicotine Frequency: 1/2 pack per day Age of first use: 7 PMH: CAD s/p CABG MV repair 2011 Hypertension COPD Traumatic ICH s/p surgical evacuation w/ subsequent seizures Alcoholic pancreatitis Depression PSH: surgical evacuation ICH PSYCH: Depression SOCIAL: Lives with son LEGAL: None History Source: Patient Limitations to Obtaining History: Dementia, Poor Historian - Past Medical History [employer]: Yes: Seizure, Other (ICH) Cardiovascular: Yes: CAD, HTN, Hyperlipdemia Pulmonary: Yes: COPD Gastrointestinal: Yes: GERD, Pancreatitis ...LMP: 01/08/97 Heme/Onc: Yes: Anemia Psych: Yes: Addictions, Anxiety, Depression, Other (ETOH abuse) - Past Surgical History Past Surgical History: Yes: CABG, Valve Replacement - Smoking History Smoking history: Current every day smoker Have you smoked in the past 12 months: Yes Aproximately how many cigarettes per day: 10 - Alcohol/Substance Use Hx Alcohol Use: Yes - Social History ADL: Independent History of Recent Travel: No Admission ROS BHS - HPI Chief Complaint: alcohol detox Allergies/Adverse Reactions: Allergies Allergy/AdvReac Type Severity Reaction Status Date / Time lactose AdvReac Severe Verified 11/23/19 16:27 Exam Limitations: Intoxication - Ebola screening Have you traveled outside of the country in the last 21 days: No Have you had contact with anyone from an Ebola affected area: No Have you been sick,other than usual withdrawal symptoms: No Do you have a fever: No - Review of Systems Constitutional: Unintentional Wgt. Loss EENT: denies: Eye Pain, Ear Pain, Nose Congestion Respiratory: reports: Shortness of Breath. denies: Cough Cardiac: reports: Chest Pain (reports experiencing chest pain at 12 noon today 02/12/20. Currently experiencing mild chest discomfort) GI: denies: Constipated, Diarrhea, Nausea, Vomiting : reports: No Symptoms Reported Musculoskeletal: reports: No Symptoms Reported, Other (muscle twitching in the calves) Integumentary: denies: Rash Neuro: reports: Unsteady Gait (uses cane at home). denies: Headache Endocrine: reports: No Symptoms Reported Hematology: denies: Blood Clots Psychiatric: reports: Orientated x3, Disorientated (knows month, not day.) Patient History - Patient Medical History Hx Anemia: No Hx Asthma: No Hx Chronic Obstructive Pulmonary Disease (COPD): No Hx Cancer: No Hx Cardiac Disorders: Yes (CAD S/P CABG) Hx Congestive Heart Failure: No Hx Hypertension: Yes Hx Hypercholesterolemia: Yes Hx Pacemaker: No HX Cerebrovascular Accident: No Hx Seizures: Yes (does not remember last Seizure) Hx Dementia: No Hx Diabetes: No Hx Gastrointestinal Disorders: No Hx Liver Disease: No Hx Genitourinary Disorders: No Hx Sexually Transmitted Disorders: No Hx Renal Disease (ESRD): No Hx Thyroid Disease: No Hx Human Immunodeficiency Virus (HIV): No Hx Hepatitis C: No Hx Depression: Yes Hx Suicide Attempt: No Hx Bipolar Disorder: No Hx Schizophrenia: No - Patient Surgical History Past Surgical History: Yes Hx Neurologic Surgery: Yes (S/P FALL R craniotomy in 04/10) Hx Cataract Extraction: No Hx Cardiac Surgery: Yes (mitral valve repair) Hx Lung Surgery: No Hx Breast Surgery: No Hx Breast Biopsy: No Hx Abdominal Surgery: No Hx Appendectomy: No Hx Cholecystectomy: No Hx Genitourinary Surgery: No Hx Section: No Hx Orthopedic Surgery: No Hx Hysterectomy: No Other Surgical History: hysterectomy at age 42 yrs old. Anesthesia Reaction: No - PPD History Previous Implant?: Yes Documented Results: Negative w/proof Implanted On Prior [facility] Admission?: Yes Date: 01/11/18 Results: 0MM - Reproductive History Last Menstrual Period: 01/08/97 - Smoking Cessation Smoking history: Current every day smoker Have you smoked in the past 12 months: Yes Aproximately how many cigarettes per day: 10 Cigars Per Day: 0 Hx Chewing Tobacco Use: No Initiated information on smoking cessation: Yes 'Breaking Loose' booklet given: 02/12/20 - Substances abused Alcohol Frequency: Daily Amount used: 1 pink vodka Age of first use: 11 Date of last use: 02/12/20 Admission Physical Exam BHS - Vital Signs Vital Signs: Vital Signs - 24 hr 02/12/20 14:01 Temperature 97.2 F L Pulse Rate 106 H Respiratory 18 Rate Blood Pressure 112/84 - Physical General Appearance: Yes: Cachetic, Thin, Irritable, Other (very weak) HEENTM: Yes: Normocephalic, Normal Voice, Other (moist mucous membranes) Respiratory: Yes: Within Normal Limits, Lungs Clear, Normal Breath Sounds, No Respiratory Distress, No Accessory Muscle Use Neck: Yes: Within Normal Limits Breast: Yes: Breast Exam Deferred Cardiology: Yes: S1, S2, Tachycardia Abdominal: Yes: Within Normal Limits, Non Tender, Flat, Soft Genitourinary: Yes: Within Normal Limits Back: Yes: Within Normal Limits Musculoskeletal: Yes: Other (unsteady gait, muscle twitching in the calf) Extremities: Yes: Normal Inspection. No: Tremors, Coldness, Cyanosis Neurological: Yes: Other (oriented to person, place, not date (only month)) Integumentary: Yes: Within Normal Limits, Dry, Warm - Diagnostic (1) Alcohol dependence with withdrawal, uncomplicated Current Visit: Yes Status: Acute (2) Alcohol intoxication Current Visit: Yes Status: Acute Qualifiers: Complication of substance-induced condition: uncomplicated Qualified Code(s): F10.920 - Alcohol use, unspecified with intoxication, uncomplicated (3) Chronic alcoholic pancreatitis Current Visit: No Status: Chronic (4) Depression Current Visit: Yes Status: Acute (5) Hx of CABG Current Visit: No Status: Chronic (6) Malnutrition Current Visit: Yes Status: Acute (7) S/P craniotomy Current Visit: No Status: Chronic (8) Nicotine dependence Current Visit: Yes Status: Acute Qualifiers: Nicotine product type: cigarettes Substance use status: uncomplicated Qualified Code(s): F17.210 - Nicotine dependence, cigarettes, uncomplicated (9) S/P MVR (mitral valve repair) Current Visit: No Status: Chronic (10) Seizure disorder Current Visit: No Status: Chronic Breathalyzer - Breathalyzer Breathalyzer: 0.133 Urine Drug Screen - Test Device Lot number: [id number] Expiration date: 01/27/22 - Control Is test valid?: Yes - Results Drug screen NEGATIVE: Yes Inpatient Rehab Admission - Rehab Decision to Admit Inpatient rehab admission?: No
[2020-02-12] MEDS ORDERED: BISMUTH SUBSALICYLATE 524 MG/30 ML UD PO PRN (15:53)
[2020-02-12] MEDS ORDERED: MAG HYDROX/AL HYDROX/SIMETH 30 ML UNIT-DOSE CUP PO PRN (15:53)
[2020-02-12] MEDS ORDERED: NICOTINE POLACRILEX 2 MG GUM BUC PRN (15:53)
[2020-02-12] MEDS ORDERED: IBUPROFEN 400 MG TABLET (FP) PO PRN (15:53)
[2020-02-12] MEDS ORDERED: chlordiazePOXIDE HCL 25 MG CAPSULE PO PRN (15:53)
[2020-02-12] MEDS ORDERED: ONDANSETRON *ODT* 4 MG TABLET SL ONE (15:53)
[2020-02-12] MEDS ORDERED: MAGNESIUM HYDROX 2400MG/30ML ORAL SUSPENSION 30 ML CUP PO PRN (15:53)
[2020-02-12] MEDS ORDERED: MAGNESIUM CITRATE 300 ML BOTTLE PO PRN (15:53)
[2020-02-12] MEDS ORDERED: ACETAMINOPHEN 325 MG TABLET (FP) PO PRN ×2 (15:53)
[2020-02-12] MEDS ORDERED: MENTHOL/PHENOL 1 EACH UD MM PRN (15:53)
[2020-02-12] MEDS ORDERED: METHOCARBAMOL 500 MG TABLET PO PRN (15:53)
[2020-02-12] MEDS: chlordiazePOXIDE HCL 25 MG CAPSULE PO SCH ×2 (17:03→22:30)
[2020-02-12] MEDS: LIPASE/PROTEASE/AMYLASE 36,000 UNIT CAPSULE PO SCH (20:45)
[2020-02-12] MEDS ORDERED: MELATONIN 5 MG TABLETS PO SCH (22:00)
[2020-02-12] MEDS: ATORVASTATIN CA 40 MG TABLET (FP) PO SCH (22:30)
[2020-02-12] MEDS: THIAMINE HCL 100 MG TABLET (FP) PO SCH (22:30)
[2020-02-12] MEDS: GABAPENTIN 100 MG CAPSULE PO SCH (22:30)
[2020-02-13] MEDS ORDERED: FUROSEMIDE 20 MG TABLET (FP) PO SCH (06:00)
[2020-02-13] MEDS: chlordiazePOXIDE HCL 25 MG CAPSULE PO SCH (06:44)
[2020-02-13] MEDS ORDERED: PANTOPRAZOLE 40 MG TABLET PO SCH (07:00)
[2020-02-13] MEDS: LIPASE/PROTEASE/AMYLASE 36,000 UNIT CAPSULE PO SCH ×3 (07:25→23:10)
[2020-02-13] MEDS: FUROSEMIDE 20 MG TABLET (FP) PO SCH ×2 (07:33→15:09)
[2020-02-13] MEDS ORDERED: PATIENT'S OWN MEDICATION (NON-FORMULARY) (Ferrous Sulfate [Ferrous Sulfate] 325 MG) PO SCH (10:00)
[2020-02-13 10:40] LABS: HEMATOCRIT 32.7 % (32.4-45.2); HEMOGLOBIN 10.8 GM/dL (10.7-15.3); MCH 32.5 pg (25.7-33.7); MCHC 32.9 g/dl (32.0-36.0); MEAN CELL VOLUME 98.6 fl (80-96); MEAN PLT VOLUME 10.1 fl (7.5-11.1); PLATELET COUNT 238 K/MM3 (134-434); RBC 3.32 M/mm3 (3.60-5.2); WHITE BLOOD COUNT 5.1 K/mm3 (4.0-10.0)
[2020-02-13] MEDS: NICOTINE 14 MG/24 HOURS TOPICAL PATCH TD SCH (10:45)
[2020-02-13] MEDS: FERROUS SO4 325 MG TABLET (FP) PO SCH (10:45)
[2020-02-13] MEDS: PANTOPRAZOLE 40 MG TABLET PO SCH (10:46)
[2020-02-13] MEDS: PRENATAL VITAMINS W/ FOLIC ACID TABLET (FP) PO SCH (10:46)
[2020-02-13] MEDS: chlordiazePOXIDE HCL 10 MG CAPSULE PO SCH ×3 (10:46→23:31)
[2020-02-13 10:52] LABS: ALBUMIN 3.9 g/dl (3.4-5.0); BILIRUBIN,TOTAL 0.7 mg/dL (0.2-1); BLOOD UREA NITROGEN 17.1 mg/dL (7-18); CALCIUM 9.3 mg/dL (8.5-10.1); CREATININE 1.1 mg/dL (0.55-1.3); POTASSIUM 3.2 mmol/L (3.5-5.1); TOT PROT 8.2 g/dl (6.4-8.2)
[2020-02-13] MEDS ORDERED: chlordiazePOXIDE 5 MG CAPSULE PO SCH (11:00)
--- NOTE | 2020-02-13 12:08 | CONSULT ---
[facility] Psychiatric Consult - Data Date of interview: 02/13/20 Admission source: Self-referred Identifying data: Ms Carter is a 59 years old single Black female, mother of 3 children, unemployed receiving SSD, living with his son seeking detox treatment for alcohol Substance Abuse History: Reports history of alcohol use. Refer to addiction counselor's summary for further information Medical History: Significant for COPD, GERD, hypertension, dyslipidemia, coronary artery disease, neuropathy, seizure disorder, history of pancreatitis, mitral valve repair (annuloplasty) in 2011, neurosurgery (right craniotomy) for brain aneurysm, CABG and hysterectomy with left oophorectomy at age 42. Smokes 10 cigarettes daily Psychiatric History: Patient denies history of psychiatric hospitalizations. Ms Carter used to be followed at the [facility] ([facility]) under the care of Dr Shaikh. Treated under the diagnoses of MDD and Anxiety Disorder. Patient has been prescribed sertaline. Chronically non-adherent to her medications. In this interview, she states that she has not taken zoloft " for more than three weeks ". Patient has been lost to psychiatric follow-up for months. In the meantime, she has been relying on the services of her primary care physician for medications refills. No history of suicide attempts.
[2020-02-13] MEDS ORDERED: MELATONIN 5 MG TABLETS PO PRN (12:22)
--- NOTE | 2020-02-13 12:26 | PN ---
[facility] CIWA - CIWA Score Nausea/Vomitin-No Nausea/No Vomiting Muscle Tremors: 3 Anxiety: 2 Agitation: 3 Paroxysmal Sweats: 2 Orientation: 0-Oriented Tacttile Disturbances: 0-None Auditory Disturbances: 0-None Visual Disturbances: 0-None Headache: 0-None Present CIWA-Ar Total Score: 10 S Progress Note (SOAP) Subjective: the librium is making me too sleepy sweats diarrhea interrupted sleep Objective: 02/13/20 12:23 Vital Signs Temperature 98.4 F 02/13/20 08:41 Pulse Rate 96 H 02/13/20 08:41 Respiratory Rate 18 02/13/20 08:41 Blood Pressure 117/83 02/13/20 08:41 O2 Sat by Pulse Oximetry (%) 96 02/13/20 05:43 Laboratory Tests 02/12/20 02/13/20 02/13/20 16:05 08:00 08:00 WBC 5.1 RBC 3.32 L Hgb 10.8 Hct 32.7 D MCV 98.6 H MCH 32.5 MCHC 32.9 RDW 18.0 H Plt Count 238 D MPV 10.1 Sodium Potassium Chloride Carbon Dioxide Anion Gap BUN Creatinine Est GFR (CKD-EPI)AfAm Est GFR (CKD-EPI)NonAf POC Glucometer 117 Random Glucose Calcium Total Bilirubin AST ALT Alkaline Phosphatase Total Protein Albumin Syphilis Serology Non-reactive 02/13/20 08:00 WBC RBC Hgb Hct MCV MCH MCHC RDW Plt Count MPV Sodium 132 L Potassium 3.2 L Chloride 97 L Carbon Dioxide 18 L Anion Gap 17 H BUN 17.1 Creatinine 1.1 Est GFR (CKD-EPI)AfAm 64.09 Est GFR (CKD-EPI)NonAf 55.30 POC Glucometer Random Glucose 118 H Calcium 9.3 Total Bilirubin 0.7 AST 120 H ALT 39 Alkaline Phosphatase 196 H Total Protein 8.2 Albumin 3.9 Syphilis Serology labs noted aaox3 lying in bed no acute distress low potassium; elevated ast kdur ordered encourage fluids repeated labs ordered for Monday Assessment: 02/13/20 12:25 withdrawals Plan: continue detox for modified librium dose increase fluids kdur ordered repeated labs ordered
[2020-02-13] MEDS: POTASSIUM CHLORIDE TABS 20 MEQ TABLET.ER (FP) PO SCH (12:56)
--- NOTE | 2020-02-13 13:57 | PN ---
S Progress Note Note: Several attempts made to see patient were unsuccessful. She has been in bed sleeping all day only woke up for lunch. Will try to see her tomorrow
--- NOTE | 2020-02-13 16:58 | EKG ---
Test Reason : Blood Pressure : / mmHG Vent. Rate : 101 BPM Atrial Rate : 101 BPM P-R Int : 130 ms QRS Dur : 076 ms QT Int : 364 ms P-R-T Axes : 064 064 061 degrees QTc Int : 471 ms SINUS TACHYCARDIA POSSIBLE LEFT ATRIAL ENLARGEMENT SEPTAL INFARCT , AGE UNDETERMINED ABNORMAL ECG WHEN COMPARED WITH ECG OF 15-JAN-2020 13:41, NO SIGNIFICANT CHANGE WAS FOUND Confirmed by ELIEZER DUARTE MD ([id number]) on 02/13/2020 4:58:04 PM Referred By: Confirmed By:ELIEZER DUARTE MD
[2020-02-13] MEDS: ATORVASTATIN CA 40 MG TABLET (FP) PO SCH (23:10)
[2020-02-13] MEDS: THIAMINE HCL 100 MG TABLET (FP) PO SCH (23:10)
[2020-02-13] MEDS: GABAPENTIN 100 MG CAPSULE PO SCH (23:10)
[2020-02-14] MEDS ORDERED: chlordiazePOXIDE HCL 25 MG CAPSULE PO SCH (05:00)
[2020-02-14] MEDS: FUROSEMIDE 20 MG TABLET (FP) PO SCH ×2 (07:31→13:53)
[2020-02-14] MEDS: chlordiazePOXIDE HCL 10 MG CAPSULE PO SCH (07:31)
[2020-02-14] MEDS: LIPASE/PROTEASE/AMYLASE 36,000 UNIT CAPSULE PO SCH ×3 (08:33→17:11)
--- NOTE | 2020-02-14 10:38 | EKG ---
Test Reason : Blood Pressure : / mmHG Vent. Rate : 089 BPM Atrial Rate : 089 BPM P-R Int : 140 ms QRS Dur : 076 ms QT Int : 406 ms P-R-T Axes : 068 048 062 degrees QTc Int : 493 ms SINUS RHYTHM WITH PREMATURE ATRIAL COMPLEXES MINIMAL VOLTAGE CRITERIA FOR LVH, MAY BE NORMAL VARIANT PROLONGED QT ABNORMAL ECG WHEN COMPARED WITH ECG OF 12-FEB-2020 14:44, PREMATURE ATRIAL COMPLEXES ARE NOW PRESENT CRITERIA FOR SEPTAL INFARCT ARE NO LONGER PRESENT Confirmed by RAMONE BROWN MD ([id number]) on 02/14/2020 10:38:17 AM Referred By: Confirmed By:RAMONE BROWN MD
--- NOTE | 2020-02-14 10:45 | PN ---
S CIWA - CIWA Score Nausea/Vomitin-Mild Nausea/No Vomiting Muscle Tremors: 2 Anxiety: 2 Agitation: 3 Paroxysmal Sweats: 1-Minimal Palms Moist Orientation: 0-Oriented Tacttile Disturbances: 0-None Auditory Disturbances: 0-None Visual Disturbances: 0-None Headache: 1-Very Mild CIWA-Ar Total Score: 10 BHS Progress Note (SOAP) Subjective: pt admitted for alcohol detox, has multiple medical problems- pancreatitis, CAD O: Vital Signs - 24 hr 02/13/20 02/13/20 02/13/20 13:05 17:13 21:12 Temperature 98.1 F 97.7 F 97.1 F L Pulse Rate 101 H 88 87 Respiratory 16 18 19 Rate Blood Pressure 115/84 102/72 111/76 O2 Sat by Pulse 97 96 Oximetry (%) 02/14/20 02/14/20 05:00 08:40 Temperature 97.8 F 98.4 F Pulse Rate 77 103 H Respiratory 18 16 Rate Blood Pressure 100/73 108/80 O2 Sat by Pulse 96 Oximetry (%) Laboratory Tests 02/12/20 02/13/20 02/13/20 16:05 08:00 08:00 WBC 5.1 RBC 3.32 L Hgb 10.8 Hct 32.7 D MCV 98.6 H MCH 32.5 MCHC 32.9 RDW 18.0 H Plt Count 238 D MPV 10.1 Sodium Potassium Chloride Carbon Dioxide Anion Gap BUN Creatinine Est GFR (CKD-EPI)AfAm Est GFR (CKD-EPI)NonAf POC Glucometer 117 Random Glucose Calcium Total Bilirubin AST ALT Alkaline Phosphatase Total Protein Albumin Syphilis Serology Non-reactive 02/13/20 08:00 WBC RBC Hgb Hct MCV MCH MCHC RDW Plt Count MPV Sodium 132 L Potassium 3.2 L Chloride 97 L Carbon Dioxide 18 L Anion Gap 17 H BUN 17.1 Creatinine 1.1 Est GFR (CKD-EPI)AfAm 64.09 Est GFR (CKD-EPI)NonAf 55.30 POC Glucometer Random Glucose 118 H Calcium 9.3 Total Bilirubin 0.7 AST 120 H ALT 39 Alkaline Phosphatase 196 H Total Protein 8.2 Albumin 3.9 Syphilis Serology mild anemia, low GFR high AST and alk phos low K a/o continue alcohol detox for AUD pt on enzymes for chronic pancreatitis statin K replacement pt states has PCP who she follows up with regularly for her medical problems
[2020-02-14] MEDS: FERROUS SO4 325 MG TABLET (FP) PO SCH (11:10)
[2020-02-14] MEDS: NICOTINE 14 MG/24 HOURS TOPICAL PATCH TD SCH (11:10)
[2020-02-14] MEDS: POTASSIUM CHLORIDE TABS 20 MEQ TABLET.ER (FP) PO SCH (11:10)
[2020-02-14] MEDS: PANTOPRAZOLE 40 MG TABLET PO SCH (11:10)
[2020-02-14] MEDS: PRENATAL VITAMINS W/ FOLIC ACID TABLET (FP) PO SCH (11:10)
[2020-02-14] MEDS: chlordiazePOXIDE 5 MG CAPSULE PO SCH ×3 (11:11→22:48)
[2020-02-14] MEDS: THIAMINE HCL 100 MG TABLET (FP) PO SCH (22:48)
[2020-02-14] MEDS: ATORVASTATIN CA 40 MG TABLET (FP) PO SCH (22:48)
[2020-02-14] MEDS: GABAPENTIN 100 MG CAPSULE PO SCH (22:48)
[2020-02-15] MEDS ORDERED: chlordiazePOXIDE HCL 10 MG CAPSULE PO PRN
[2020-02-15] MEDS ORDERED: chlordiazePOXIDE HCL 10 MG CAPSULE PO SCH (05:00)
[2020-02-15] MEDS: FUROSEMIDE 20 MG TABLET (FP) PO SCH ×2 (06:56→14:10)
[2020-02-15] MEDS: chlordiazePOXIDE 5 MG CAPSULE PO SCH (06:56)
[2020-02-15] MEDS: PANTOPRAZOLE 40 MG TABLET PO SCH (10:56)
[2020-02-15] MEDS: POTASSIUM CHLORIDE TABS 20 MEQ TABLET.ER (FP) PO SCH (10:56)
[2020-02-15] MEDS: FERROUS SO4 325 MG TABLET (FP) PO SCH (10:56)
[2020-02-15] MEDS: chlordiazePOXIDE HCL 10 MG CAPSULE PO SCH ×3 (10:56→22:48)
[2020-02-15] MEDS: NICOTINE 14 MG/24 HOURS TOPICAL PATCH TD SCH (10:56)
[2020-02-15] MEDS: PRENATAL VITAMINS W/ FOLIC ACID TABLET (FP) PO SCH (12:37)
[2020-02-15] MEDS: LIPASE/PROTEASE/AMYLASE 36,000 UNIT CAPSULE PO SCH ×2 (12:37→17:54)
--- NOTE | 2020-02-15 13:55 | PN ---
S CIWA - CIWA Score Nausea/Vomitin-No Nausea/No Vomiting Muscle Tremors: 2 Anxiety: 2 Agitation: 1-Slight > Activity Paroxysmal Sweats: 2 Orientation: 0-Oriented Tacttile Disturbances: 0-None Auditory Disturbances: 2-Mild Harshness/Frighten Visual Disturbances: 0-None Headache: 0-None Present CIWA-Ar Total Score: 9 BHS Progress Note (SOAP) Subjective: complaints of sweats, tremors,anxiety and noise sensitivity. Objective: 02/15/20 13:53 Vital Signs 02/15/20 09:02 Temperature 97.7 F Pulse Rate 101 H Respiratory 17 Rate Blood Pressure 116/83 O2 Sat by Pulse 100 Oximetry (%) Assessment: 02/15/20 13:54 Alert and oriented x 3, in no acute respiratory distress. Full ROM, ambulating in the unit without assistance. Withdrawal symptoms. Plan: Continue detox protocol.
[2020-02-15] MEDS: THIAMINE HCL 100 MG TABLET (FP) PO SCH (22:48)
[2020-02-15] MEDS: ATORVASTATIN CA 40 MG TABLET (FP) PO SCH (22:48)
[2020-02-15] MEDS: GABAPENTIN 100 MG CAPSULE PO SCH (22:48)
[2020-02-16] MEDS ORDERED: chlordiazePOXIDE HCL 10 MG CAPSULE PO SCH ×2 (05:00→11:00)
[2020-02-16] MEDS: chlordiazePOXIDE HCL 10 MG CAPSULE PO SCH (05:53)
[2020-02-16] MEDS: FUROSEMIDE 20 MG TABLET (FP) PO SCH (06:31)
[2020-02-16] MEDS: LIPASE/PROTEASE/AMYLASE 36,000 UNIT CAPSULE PO SCH (08:05)
[2020-02-16 10:08] VITALS: BP 102/80; PULSE 107; TEMP 97.7
--- NOTE | 2020-02-16 10:37 | DS ---
[facility] Detox Discharge Summary Admission Date: 02/12/20 Discharge Date: 02/16/20 - History Present History: Alcohol Dependence Additional Comments: Patient was seen and examined at bedside. Alert and oriented x 3, in no acute respiratory distress. Skin warm to touch. Full ROM, ambulatory without assistance. For discharge tomorrow but wants to leave today to [facility]. Pertinent Past History: History of CAD with CABG and MV repair ([id number], HTN, COPD, Alcoholic pancreatitis, seizures, alcohol and nicotine use disorder. - Physical Exam Results Vital Signs: Vital Signs Temperature 97.7 F 02/16/20 09:06 Pulse Rate 107 H 02/16/20 09:06 Respiratory Rate 18 02/16/20 09:06 Blood Pressure 102/80 02/16/20 09:06 O2 Sat by Pulse Oximetry (%) 99 02/16/20 05:42 Vital Signs 02/16/20 02/16/20 05:42 09:06 Temperature 97.9 F 97.7 F Pulse Rate 74 107 H Respiratory 16 18 Rate Blood Pressure 102/70 102/80 O2 Sat by Pulse 99 Oximetry (%) Laboratory Last Values WBC 5.1 K/mm3 (4.0-10.0) 02/13/20 08:00 RBC 3.32 M/mm3 (3.60-5.2) L 02/13/20 08:00 Hgb 10.8 GM/dL (10.7-15.3) 02/13/20 08:00 Hct 32.7 % (32.4-45.2) D 02/13/20 08:00 MCV 98.6 fl (80-96) H 02/13/20 08:00 MCH 32.5 pg (25.7-33.7) 02/13/20 08:00 MCHC 32.9 g/dl (32.0-36.0) 02/13/20 08:00 RDW 18.0 % (11.6-15.6) H 02/13/20 08:00 Plt Count 238 K/MM3 (134-434) D 02/13/20 08:00 MPV 10.1 fl (7.5-11.1) 02/13/20 08:00 Sodium 132 mmol/L (136-145) L 02/13/20 08:00 Potassium 3.2 mmol/L (3.5-5.1) L 02/13/20 08:00 Chloride 97 mmol/L (98-107) L 02/13/20 08:00 Carbon Dioxide 18 mmol/L (21-32) L 02/13/20 08:00 Anion Gap 17 MMOL/L (8-16) H 02/13/20 08:00 BUN 17.1 mg/dL (7-18) 02/13/20 08:00 Creatinine 1.1 mg/dL (0.55-1.3) 02/13/20 08:00 Est GFR (CKD-EPI)AfAm 64.09 02/13/20 08:00 Est GFR (CKD-EPI)NonAf 55.30 02/13/20 08:00 POC Glucometer 117 UNITS (80-120) 02/12/20 16:05 Random Glucose 118 mg/dL (74-106) H 02/13/20 08:00 Calcium 9.3 mg/dL (8.5-10.1) 02/13/20 08:00 Total Bilirubin 0.7 mg/dL (0.2-1) 02/13/20 08:00 AST 120 U/L (15-37) H 02/13/20 08:00 ALT 39 U/L (13-61) 02/13/20 08:00 Alkaline Phosphatase 196 U/L (45-117) H 02/13/20 08:00 Total Protein 8.2 g/dl (6.4-8.2) 02/13/20 08:00 Albumin 3.9 g/dl (3.4-5.0) 02/13/20 08:00 Syphilis Serology Non-reactive (NONREACTIVE) 02/13/20 08:00 COVID-19 (ADITHYA) Not detected (Not Detected) 02/13/20 08:40 Labs noted. Pertinent Admission Physical Exam Findings: Withdrawal symptoms. - Treatment Hospital Course: Detox Protocol Followed, Detoxed Safely, Responded well, Discharged Condition Good - Medication Discharge Medications: Ambulatory Orders Ferrous Sulfate 325 mg PO DAILY 01/31/17 Furosemide [Lasix -] 20 mg PO BID@0600,1400 #60 tablet 01/12/18 Amlodipine Besylate [Norvasc -] 5 mg PO DAILY 05/01/18 Folic Acid - 1 mg PO DAILY #30 tablet 05/03/18 Thiamine HCl [Vitamin B1 -] 100 mg PO DAILY #30 tablet 05/03/18 Atorvastatin Ca [Lipitor] 40 mg PO HS 06/17/18 Lipase/Protease/Amylase [Karishma Chacon 36,000 Units Capsule] 1 cap PO TIDCM #90 capsule. 06/25/18 Gabapentin [Neurontin -] 100 mg PO HS #30 capsule 11/26/19 Pantoprazole Sodium [Protonix -] 40 mg PO ACBK tablet.ec 11/26/19 Mirtazapine [Remeron -] 15 mg PO HS 02/12/20 Mirtazapine [Remeron -] 15 mg PO HS 02/12/20 Naproxen [Naprosyn -] 500 mg PO BID 02/12/20 Naproxen [Naprosyn] 500 mg PO BID 02/12/20 Sertraline HCl [Zoloft -] 50 mg PO DAILY 02/12/20 Sertraline HCl [Zoloft] 50 mg PO DAILY 02/12/20 - Diagnosis (1) Alcohol dependence with withdrawal, uncomplicated Current Visit: Yes Status: Acute (2) Nicotine dependence Current Visit: Yes Status: Chronic Qualifiers: Nicotine product type: cigarettes Substance use status: uncomplicated Qualified Code(s): F17.210 - Nicotine dependence, cigarettes, uncomplicated (3) Alcoholic pancreatitis Current Visit: No Status: Chronic (4) Alcohol use disorder Current Visit: No Status: Chronic (5) CAD (coronary artery disease) Current Visit: No Status: Chronic (6) COPD (chronic obstructive pulmonary disease) Current Visit: No Status: Chronic (7) HLD (hyperlipidemia) Current Visit: No Status: Chronic Qualifiers: Hyperlipidemia type: pure hypercholesterolemia Qualified Code(s): E78.00 - Pure hypercholesterolemia, unspecified; E78.0 - Pure hypercholesterolemia (8) Hx of CABG Current Visit: No Status: Chronic (9) Seizure disorder Current Visit: No Status: Chronic - AMA Did Patient Leave Against Medical Advice: No
[2020-02-16 12:18] LABS: BASO % 0.5 % (0-2.0); EOS % 1.8 % (0-4.5); HEMOGLOBIN 8.4 GM/dL (10.7-15.3); LYMPH % 29.2 % (8-40); MCH 33.2 pg (25.7-33.7); MCHC 33.6 g/dl (32.0-36.0); MEAN CELL VOLUME 98.8 fl (80-96); MEAN PLT VOLUME 10.8 fl (7.5-11.1); MONO % 9.4 % (3.8-10.2); NEUT % 59.1 % (42.8-82.8); PLATELET COUNT 144 K/MM3 (134-434); RBC 2.53 M/mm3 (3.60-5.2); RDW 18.1 % (11.6-15.6); WHITE BLOOD COUNT 5.2 K/mm3 (4.0-10.0)
[2020-02-16 12:32] LABS: ALBUMIN 2.8 g/dl (3.4-5.0); BILIRUBIN,TOTAL 0.3 mg/dL (0.2-1); BLOOD UREA NITROGEN 24.8 mg/dL (7-18); CALCIUM 9.9 mg/dL (8.5-10.1); CREATININE 0.9 mg/dL (0.55-1.3); POTASSIUM 4.4 mmol/L (3.5-5.1); TOT PROT 6.2 g/dl (6.4-8.2)
[2020-02-17] MEDS ORDERED: chlordiazePOXIDE HCL 10 MG CAPSULE PO ONE (05:00)
== END 2020-02-16 10:21 | disposition home or self-care (01) | DRG 897 ==
LOC: YASAS 11:45 → Y6N 13:59
PROVIDERS: ADMIT Allergy & Immunology; ATTEND Allergy & Immunology
PROC: HZ2ZZZZ Detoxification Services for Substance Abuse Treatment (ICD-10-PCS; principal; 2020-02-12)
DX: F10.230 Alcohol dependence with withdrawal, uncomplicated (principal); K86.0 Alcohol-induced chronic pancreatitis; R56.1 Post traumatic seizures; E46 Unspecified protein-calorie malnutrition; Z68.1 Body mass index [BMI] 19.9 or less, adult; F17.210 Nicotine dependence, cigarettes, uncomplicated; F41.9 Anxiety disorder, unspecified; F32.9 Major depressive disorder, single episode, unspecified; E78.00 Pure hypercholesterolemia, unspecified; I25.10 Atherosclerotic heart disease of native coronary artery without angina pectoris; I10 Essential (primary) hypertension; Z95.1 Presence of aortocoronary bypass graft; Z98.890 Other specified postprocedural states; G62.9 Polyneuropathy, unspecified; J44.9 Chronic obstructive pulmonary disease, unspecified; K21.9 Gastro-esophageal reflux disease without esophagitis; D64.9 Anemia, unspecified; R74.0 Nonspecific elevation of levels of transaminase and lactic acid dehydrogenase [LDH]; Z87.820 Personal history of traumatic brain injury
CPT/HCPCS: 36415; 80053; 82962; 85025; 85027; 86780; 90832-95; 93005; 93010; Q0162; U0003

== ENCOUNTER 2020-08-25 10:34 | Emergency (ER) | payer OTHER ==
[2020-08-25 10:52] VITALS: BP 119/80; PULSE 108; BMI 13.7
== END 2020-08-25 11:57 | disposition home or self-care (01) ==
LOC: JERFT 10:34
DX: M25.552 Pain in left hip (principal)
CPT/HCPCS: 73523-TC-FY; 99283-25

== ENCOUNTER 2020-09-04 13:34 | Emergency (ER) | payer OTHER ==
[2020-09-04 14:01] VITALS: BP 119/80; PULSE 115; TEMP 98.8; BMI 16.6
[2020-09-04] MEDS ORDERED: SODIUM CHLORIDE 1,000 ML IV STA (15:11)
[2020-09-04] MEDS ORDERED: dilTIAZem HCL 50 MG/10 ML - 10 ML VIAL IVPUSH ONE (15:20)
[2020-09-04 16:08] LABS: BASO % 0.5 % (0-2.0); EOS % 0.4 % (0-4.5); HEMATOCRIT 33.5 % (32.4-45.2); HEMOGLOBIN 10.7 GM/dL (10.7-15.3); LYMPH % 13.5 % (8-40); MCH 30.7 pg (25.7-33.7); MCHC 32.1 g/dl (32.0-36.0); MEAN CELL VOLUME 95.7 fl (80-96); MEAN PLT VOLUME 9.8 fl (7.5-11.1); MONO % 8.5 % (3.8-10.2); NEUT % 77.1 % (42.8-82.8); PLATELET COUNT 275 K/MM3 (134-434); RDW 17.5 % (11.6-15.6); WHITE BLOOD COUNT 8.6 K/mm3 (4.0-10.0)
[2020-09-04 16:26] LABS: ALBUMIN 2.2 g/dl (3.4-5.0); BLOOD UREA NITROGEN 15.1 mg/dL (7-18)
[2020-09-04 16:29] LABS: CREATININE 0.6 mg/dL (0.55-1.3)
[2020-09-04 16:30] LABS: BILIRUBIN,TOTAL 0.7 mg/dL (0.2-1)
[2020-09-04 16:31] LABS: TOT PROT 6.8 g/dl (6.4-8.2)
[2020-09-04] MEDS ORDERED: POTASSIUM CHLORIDE ORAL LIQUID 20 MEQ/15 ML PO ONE (17:08)
[2020-09-04] MEDS ORDERED: POTASSIUM CHLORIDE ORAL LIQUID 20 MEQ/15 ML ONE (17:21)
== END 2020-09-04 20:41 | disposition home or self-care (01) ==
LOC: JER 13:34
PROC: 3E033NZ Introduction of Analgesics, Hypnotics, Sedatives into Peripheral Vein, Percutaneous Approach (ICD-10-PCS; principal; 2020-09-04)
PROC: 3E0337Z Introduction of Electrolytic and Water Balance Substance into Peripheral Vein, Percutaneous Approach (ICD-10-PCS; 2020-09-04)
DX: R63.0 Anorexia (principal); F10.10 Alcohol abuse, uncomplicated
CPT/HCPCS: 36415; 80053; 85025; 93005; 93010; 99284-25

== ENCOUNTER 2020-09-16 16:31 | Inpatient (IN) | payer OTHER ==
[2020-09-16 19:14] LABS: BASO % 0.4 % (0-2.0); EOS % 2.9 % (0-4.5); HEMATOCRIT 32.3 % (32.4-45.2); HEMOGLOBIN 10.5 GM/dL (10.7-15.3); LYMPH % 41.5 % (8-40); MCH 31.1 pg (25.7-33.7); MCHC 32.5 g/dl (32.0-36.0); MEAN CELL VOLUME 95.7 fl (80-96); MEAN PLT VOLUME 9.1 fl (7.5-11.1); MONO % 4.4 % (3.8-10.2); NEUT % 50.8 % (42.8-82.8); PLATELET COUNT 409 K/MM3 (134-434); RBC 3.37 M/mm3 (3.60-5.2); RDW 17.3 % (11.6-15.6); WHITE BLOOD COUNT 7.3 K/mm3 (4.0-10.0)
[2020-09-16 19:25] LABS: INR 1.02 (0.83-1.09); PROTHROMBIN TIME (PATIENT) 12.3 SEC (9.7-13.0)
[2020-09-16 19:28] LABS: ACTIVATED PTT 36.1 SECONDS (25.2-36.5)
[2020-09-16 19:30] LABS: POTASSIUM 3.8 mmol/L (3.5-5.1)
[2020-09-16 19:33] LABS: ALBUMIN 2.2 g/dl (3.4-5.0); BLOOD UREA NITROGEN 8.2 mg/dL (7-18); MAGNESIUM 2.2 mg/dL (1.8-2.4)
[2020-09-16 19:37] LABS: CREATININE 0.6 mg/dL (0.55-1.3); PHOSPHOROUS 2.1 mg/dL (2.5-4.9)
[2020-09-16 19:38] LABS: BILIRUBIN,TOTAL 0.5 mg/dL (0.2-1); TOT PROT 7.1 g/dl (6.4-8.2)
[2020-09-17 06:16] LABS: BASO % 0.5 % (0-2.0); EOS % 2.3 % (0-4.5); HEMATOCRIT 23.9 % (32.4-45.2); LYMPH % 24.9 % (8-40); MCH 31.4 pg (25.7-33.7); MCHC 33.6 g/dl (32.0-36.0); MEAN CELL VOLUME 93.7 fl (80-96); MEAN PLT VOLUME 9.1 fl (7.5-11.1); MONO % 6.6 % (3.8-10.2); NEUT % 65.7 % (42.8-82.8); PLATELET COUNT 309 K/MM3 (134-434); RBC 2.55 M/mm3 (3.60-5.2); RDW 17.2 % (11.6-15.6)
[2020-09-17] MEDS ORDERED: FUROSEMIDE 40 MG TABLET (FP) ONE (06:16)
[2020-09-17] MEDS: FUROSEMIDE 20 MG TABLET (FP) PO SCH ×2 (06:18→14:11)
[2020-09-17 06:39] LABS: POTASSIUM 4.2 mmol/L (3.5-5.1)
[2020-09-17 06:41] LABS: BLOOD UREA NITROGEN 11.4 mg/dL (7-18); CALCIUM 8.6 mg/dL (8.5-10.1)
[2020-09-17 06:44] LABS: CREATININE 0.7 mg/dL (0.55-1.3)
[2020-09-17 06:46] LABS: BILIRUBIN,TOTAL 0.2 mg/dL (0.2-1); TOT PROT 5.6 g/dl (6.4-8.2)
[2020-09-17 06:53] LABS: ALBUMIN 1.7 g/dl (3.4-5.0)
[2020-09-17 07:40] LABS: N-TERMINAL BNP 2447.7 pg/ml (5-125)
[2020-09-17] MEDS: LIPASE/PROTEASE/AMYLASE 36,000 UNIT CAPSULE PO SCH ×3 (08:28→18:21)
[2020-09-17] MEDS ORDERED: amLODIPine BESYLATE 5 MG TABLET (FP) ONE (09:13)
[2020-09-17] MEDS ORDERED: THIAMINE HCL 100 MG TABLET (FP) ONE (09:13)
[2020-09-17] MEDS ORDERED: SERTRALINE HCL 50 MG TABLET (FP) ONE (09:13)
[2020-09-17] MEDS ORDERED: FERROUS SO4 325 MG TABLET (FP) ONE (09:14)
[2020-09-17] MEDS ORDERED: ENOXAPARIN NA (PORCINE) 40 MG/0.4 ML DISP.SYRIN SQ ONE (09:14)
[2020-09-17] MEDS: amLODIPine BESYLATE 5 MG TABLET (FP) PO SCH (09:51)
[2020-09-17] MEDS: SERTRALINE HCL 50 MG TABLET (FP) PO SCH (09:51)
[2020-09-17] MEDS: MEGESTROL ACETATE 40 MG TABLET PO SCH (09:51)
[2020-09-17] MEDS: THIAMINE HCL 100 MG TABLET (FP) PO SCH (09:51)
[2020-09-17] MEDS: FERROUS SO4 325 MG TABLET (FP) PO SCH (09:51)
[2020-09-17] MEDS: ENOXAPARIN NA (PORCINE) 40 MG/0.4 ML DISP.SYRIN SQ SCH (09:51)
[2020-09-17] MEDS: CYANOCOBALAMIN (VITAMIN B-12) 100 MCG TABLET PO SCH (09:51)
[2020-09-17] MEDS ORDERED: PATIENT'S OWN MEDICATION (NON-FORMULARY) (Ferrous Sulfate [Ferrous Sulfate] 325 MG Tablet) PO SCH (10:00)
[2020-09-17] MEDS ORDERED: ACETAMINOPHEN 325 MG TABLET (FP) ONE (14:08)
[2020-09-17 22:00] LABS: BASO % 0.2 % (0-2.0); EOS % 2.6 % (0-4.5); HEMATOCRIT 23.2 % (32.4-45.2); HEMOGLOBIN 7.4 GM/dL (10.7-15.3); LYMPH % 22.5 % (8-40); MCH 30.4 pg (25.7-33.7); MCHC 32.2 g/dl (32.0-36.0); MEAN CELL VOLUME 94.5 fl (80-96); MEAN PLT VOLUME 9.3 fl (7.5-11.1); MONO % 6.8 % (3.8-10.2); NEUT % 67.9 % (42.8-82.8); PLATELET COUNT 278 K/MM3 (134-434); RBC 2.45 M/mm3 (3.60-5.2); WHITE BLOOD COUNT 8.9 K/mm3 (4.0-10.0)
[2020-09-17] MEDS: ATORVASTATIN CA 40 MG TABLET (FP) PO SCH (22:13)
[2020-09-17] MEDS: GABAPENTIN 100 MG CAPSULE PO SCH (22:13)
[2020-09-18] MEDS: MEGESTROL ACETATE 40 MG TABLET PO SCH ×3 (00:08→21:45)
[2020-09-18] MEDS ORDERED: PIPERACILLIN/TAZOB 3.375 GM 3.375 GM in DEXTROSE 5%-WATER - 50 ML IVPB SCH (02:30)
[2020-09-18] MEDS: PIPERACILLIN/TAZOB 3.375 GM 3.375 GM in DEXTROSE 5%-WATER - 50 ML IVPB SCH ×3 (03:30→18:31)
[2020-09-18] MEDS ORDERED: PIPERACILLIN/TAZOBACTAM 3.375 GM VIAL IVPB ONE ×3 (03:39→18:00)
[2020-09-18] MEDS ORDERED: DEXTROSE 5%-WATER - 50 ML IVPB ONE ×3 (03:39→18:00)
[2020-09-18] MEDS: FUROSEMIDE 20 MG TABLET (FP) PO SCH ×2 (06:16→14:35)
[2020-09-18 07:59] LABS: BASO % 0.6 % (0-2.0); EOS % 3.6 % (0-4.5); HEMATOCRIT 22.7 % (32.4-45.2); HEMOGLOBIN 7.5 GM/dL (10.7-15.3); LYMPH % 23.6 % (8-40); MCH 31.4 pg (25.7-33.7); MCHC 33.1 g/dl (32.0-36.0); MEAN CELL VOLUME 94.8 fl (80-96); MEAN PLT VOLUME 9.1 fl (7.5-11.1); MONO % 7.4 % (3.8-10.2); NEUT % 64.8 % (42.8-82.8); PLATELET COUNT 271 K/MM3 (134-434); RDW 17.1 % (11.6-15.6); WHITE BLOOD COUNT 8.5 K/mm3 (4.0-10.0)
[2020-09-18 08:15] LABS: POTASSIUM 3.8 mmol/L (3.5-5.1)
[2020-09-18 08:19] LABS: ALBUMIN 1.6 g/dl (3.4-5.0); BLOOD UREA NITROGEN 8.9 mg/dL (7-18); CALCIUM 8.6 mg/dL (8.5-10.1)
[2020-09-18 08:24] LABS: BILIRUBIN,TOTAL 0.4 mg/dL (0.2-1); CREATININE 0.6 mg/dL (0.55-1.3); TOT PROT 5.5 g/dl (6.4-8.2)
[2020-09-18] MEDS ORDERED: PT OWN MED DRAWER 7, Y5N ONE ×2 (09:17→20:28)
[2020-09-18] MEDS: THIAMINE HCL 100 MG TABLET (FP) PO SCH (09:27)
[2020-09-18] MEDS: amLODIPine BESYLATE 5 MG TABLET (FP) PO SCH (09:27)
[2020-09-18] MEDS: SERTRALINE HCL 50 MG TABLET (FP) PO SCH (09:27)
[2020-09-18] MEDS: LIPASE/PROTEASE/AMYLASE 36,000 UNIT CAPSULE PO SCH ×3 (09:28→18:30)
[2020-09-18] MEDS: ENOXAPARIN NA (PORCINE) 40 MG/0.4 ML DISP.SYRIN SQ SCH (09:28)
[2020-09-18] MEDS: FERROUS SO4 325 MG TABLET (FP) PO SCH (09:29)
[2020-09-18] MEDS: SODIUM CHLORIDE 1,000 ML IV SCH (09:29)
[2020-09-18] MEDS: CYANOCOBALAMIN (VITAMIN B-12) 100 MCG TABLET PO SCH (09:30)
[2020-09-18] MEDS: ACETAMINOPHEN 325 MG TABLET (FP) PO PRN ×2 (11:12→21:48)
[2020-09-18] MEDS ORDERED: IRON SUCROSE INJECTION 300 MG in SODIUM CHLORIDE 250 ML IVPB ONE (14:30)
[2020-09-18] MEDS: GABAPENTIN 100 MG CAPSULE PO SCH (21:45)
[2020-09-18] MEDS: ATORVASTATIN CA 40 MG TABLET (FP) PO SCH (21:47)
[2020-09-19] MEDS ORDERED: PIPERACILLIN/TAZOBACTAM 3.375 GM VIAL IVPB ONE ×3 (03:12→16:52)
[2020-09-19] MEDS ORDERED: DEXTROSE 5%-WATER - 50 ML IVPB ONE ×3 (03:12→16:52)
[2020-09-19] MEDS: PIPERACILLIN/TAZOB 3.375 GM 3.375 GM in DEXTROSE 5%-WATER - 50 ML IVPB SCH ×3 (05:51→18:17)
[2020-09-19] MEDS: FUROSEMIDE 20 MG TABLET (FP) PO SCH ×2 (07:02→14:22)
[2020-09-19 07:55] LABS: BASO % 0.6 % (0-2.0); EOS % 3.4 % (0-4.5); HEMATOCRIT 27.7 % (32.4-45.2); HEMOGLOBIN 9.6 GM/dL (10.7-15.3); LYMPH % 16.5 % (8-40); MCH 31.4 pg (25.7-33.7); MCHC 34.7 g/dl (32.0-36.0); MEAN CELL VOLUME 90.3 fl (80-96); MEAN PLT VOLUME 9.4 fl (7.5-11.1); MONO % 6.7 % (3.8-10.2); NEUT % 72.8 % (42.8-82.8); PLATELET COUNT 270 K/MM3 (134-434); RBC 3.06 M/mm3 (3.60-5.2); RDW 17.2 % (11.6-15.6); WHITE BLOOD COUNT 8.6 K/mm3 (4.0-10.0)
[2020-09-19 08:18] LABS: POTASSIUM 3.2 mmol/L (3.5-5.1)
[2020-09-19 08:27] LABS: CALCIUM 8.1 mg/dL (8.5-10.1)
[2020-09-19 08:28] LABS: ALBUMIN 1.6 g/dl (3.4-5.0); BLOOD UREA NITROGEN 8.7 mg/dL (7-18)
[2020-09-19 08:31] LABS: CREATININE 0.4 mg/dL (0.55-1.3)
[2020-09-19 08:32] LABS: BILIRUBIN,TOTAL 0.4 mg/dL (0.2-1); TOT PROT 5.4 g/dl (6.4-8.2)
[2020-09-19] MEDS ORDERED: PT OWN MED DRAWER 7, Y5N ONE ×2 (10:30→20:10)
[2020-09-19] MEDS: SODIUM CHLORIDE 1,000 ML IV SCH (10:36)
[2020-09-19] MEDS: LIPASE/PROTEASE/AMYLASE 36,000 UNIT CAPSULE PO SCH ×3 (10:36→17:09)
[2020-09-19] MEDS: ENOXAPARIN NA (PORCINE) 40 MG/0.4 ML DISP.SYRIN SQ SCH (10:38)
[2020-09-19] MEDS: THIAMINE HCL 100 MG TABLET (FP) PO SCH (10:38)
[2020-09-19] MEDS: SERTRALINE HCL 50 MG TABLET (FP) PO SCH (10:38)
[2020-09-19] MEDS: CYANOCOBALAMIN (VITAMIN B-12) 100 MCG TABLET PO SCH (10:38)
[2020-09-19] MEDS: MEGESTROL ACETATE 40 MG TABLET PO SCH ×2 (10:38→21:50)
[2020-09-19] MEDS: FERROUS SO4 325 MG TABLET (FP) PO SCH (10:38)
[2020-09-19] MEDS: amLODIPine BESYLATE 5 MG TABLET (FP) PO SCH (10:38)
[2020-09-19] MEDS: NICOTINE 14 MG/24 HOURS TOPICAL PATCH TD SCH (11:49)
[2020-09-19 14:57] LABS: HIV INTERPRETATION NEGATIVE (NEGATIVE)
[2020-09-19] MEDS: ATORVASTATIN CA 40 MG TABLET (FP) PO SCH (21:50)
[2020-09-19] MEDS: GABAPENTIN 100 MG CAPSULE PO SCH (21:51)
[2020-09-19] MEDS: ACETAMINOPHEN 325 MG TABLET (FP) PO PRN (21:51)
[2020-09-20] MEDS ORDERED: DEXTROSE 5%-WATER - 50 ML IVPB ONE ×3 (04:04→17:12)
[2020-09-20] MEDS ORDERED: PIPERACILLIN/TAZOBACTAM 3.375 GM VIAL IVPB ONE ×3 (04:04→17:11)
[2020-09-20] MEDS: PIPERACILLIN/TAZOB 3.375 GM 3.375 GM in DEXTROSE 5%-WATER - 50 ML IVPB SCH ×3 (04:11→17:31)
[2020-09-20] MEDS: FUROSEMIDE 20 MG TABLET (FP) PO SCH ×2 (06:35→14:54)
[2020-09-20] MEDS ORDERED: PT OWN MED DRAWER 7, Y5N ONE ×3 (08:48→12:17)
[2020-09-20] MEDS: LIPASE/PROTEASE/AMYLASE 36,000 UNIT CAPSULE PO SCH ×3 (08:52→17:30)
[2020-09-20 09:17] LABS: BASO % 0.6 % (0-2.0); EOS % 2.9 % (0-4.5); HEMOGLOBIN 9.6 GM/dL (10.7-15.3); MCH 31.3 pg (25.7-33.7); MCHC 34.4 g/dl (32.0-36.0); MEAN CELL VOLUME 90.8 fl (80-96); MEAN PLT VOLUME 9.1 fl (7.5-11.1); MONO % 7.5 % (3.8-10.2); PLATELET COUNT 253 K/MM3 (134-434); RBC 3.08 M/mm3 (3.60-5.2); RDW 17.3 % (11.6-15.6); WHITE BLOOD COUNT 6.6 K/mm3 (4.0-10.0)
[2020-09-20 09:28] LABS: CHLORIDE 111 mmol/L (98-107); SODIUM 141 mmol/L (136-145)
[2020-09-20] MEDS: THIAMINE HCL 100 MG TABLET (FP) PO SCH (09:35)
[2020-09-20] MEDS: FERROUS SO4 325 MG TABLET (FP) PO SCH (09:35)
[2020-09-20] MEDS: SERTRALINE HCL 50 MG TABLET (FP) PO SCH (09:35)
[2020-09-20] MEDS: amLODIPine BESYLATE 10 MG TABLET (FP) PO SCH (09:35)
[2020-09-20] MEDS: metoPROLOL SUCCINATE 25 MG TAB.SR.24H (FP) PO SCH (09:35)
[2020-09-20] MEDS: ENOXAPARIN NA (PORCINE) 40 MG/0.4 ML DISP.SYRIN SQ SCH (09:36)
[2020-09-20] MEDS: NICOTINE 14 MG/24 HOURS TOPICAL PATCH TD SCH (09:36)
[2020-09-20 09:41] LABS: CREATININE 0.5 mg/dL (0.55-1.3); SGPT/ALT 12 U/L (13-61)
[2020-09-20 09:43] LABS: BILIRUBIN,TOTAL 0.4 mg/dL (0.2-1); TOT PROT 5.2 g/dl (6.4-8.2)
[2020-09-20 09:44] LABS: ALK PHOS 178 U/L (45-117)
[2020-09-20 09:48] LABS: ALBUMIN 1.5 g/dl (3.4-5.0); BLOOD UREA NITROGEN 5.6 mg/dL (7-18); CALCIUM 7.5 mg/dL (8.5-10.1); CO2 19 mmol/L (21-32); GLUCOSE,RANDOM 107 mg/dL (74-106)
[2020-09-20 09:51] LABS: SGOT/AST 21 U/L (15-37)
[2020-09-20 09:56] LABS: ANION GAP 11 MMOL/L (8-16); POTASSIUM 2.7 mmol/L (3.5-5.1)
[2020-09-20] MEDS: MEGESTROL ACETATE 40 MG TABLET PO SCH ×2 (10:05→21:05)
[2020-09-20] MEDS: CYANOCOBALAMIN (VITAMIN B-12) 100 MCG TABLET PO SCH (10:06)
[2020-09-20] MEDS ORDERED: SODIUM CHLORIDE 1,000 ML with POTASSIUM CHLORIDE 10 MEQ IV SCH (11:00)
[2020-09-20] MEDS: POTASSIUM CHLORIDE 10 MEQ in SODIUM CHLORIDE 1,000 ML IV SCH ×2 (11:21→23:02)
[2020-09-20] MEDS: KCL 10 MEQ IVPB 10 MEQ/100 ML INFUS.BAG IVPB SCH ×3 (11:22→14:24)
[2020-09-20] MEDS: ACETAMINOPHEN 325 MG TABLET (FP) PO PRN ×2 (13:39→22:02)
[2020-09-20 14:35] VITALS: BMI 13.6
[2020-09-20] MEDS: GABAPENTIN 100 MG CAPSULE PO SCH (21:05)
[2020-09-20] MEDS: ATORVASTATIN CA 40 MG TABLET (FP) PO SCH (21:05)
[2020-09-21] MEDS ORDERED: DEXTROSE 5%-WATER - 50 ML IVPB ONE ×3 (01:01→17:33)
[2020-09-21] MEDS ORDERED: PIPERACILLIN/TAZOBACTAM 3.375 GM VIAL IVPB ONE ×3 (01:01→17:33)
[2020-09-21] MEDS: PIPERACILLIN/TAZOB 3.375 GM 3.375 GM in DEXTROSE 5%-WATER - 50 ML IVPB SCH ×3 (01:05→17:43)
[2020-09-21] MEDS: FUROSEMIDE 20 MG TABLET (FP) PO SCH ×2 (05:17→14:05)
[2020-09-21] MEDS: POTASSIUM CHLORIDE 10 MEQ in SODIUM CHLORIDE 1,000 ML IV SCH ×2 (05:27→14:06)
[2020-09-21] MEDS ORDERED: PT OWN MED DRAWER 7, Y5N ONE ×3 (07:37→21:28)
[2020-09-21] MEDS: ACETAMINOPHEN 325 MG TABLET (FP) PO PRN ×2 (07:49→15:41)
[2020-09-21] MEDS: LIPASE/PROTEASE/AMYLASE 36,000 UNIT CAPSULE PO SCH ×3 (08:44→17:43)
[2020-09-21 08:46] LABS: BASO % 0.3 % (0-2.0); EOS % 1.6 % (0-4.5); HEMATOCRIT 29.2 % (32.4-45.2); HEMOGLOBIN 9.8 GM/dL (10.7-15.3); MCH 31.1 pg (25.7-33.7); MCHC 33.4 g/dl (32.0-36.0); MEAN CELL VOLUME 93.1 fl (80-96); MEAN PLT VOLUME 9.4 fl (7.5-11.1); MONO % 8.3 % (3.8-10.2); NEUT % 73.8 % (42.8-82.8); PLATELET COUNT 286 K/MM3 (134-434); RBC 3.14 M/mm3 (3.60-5.2); RDW 17.4 % (11.6-15.6); WHITE BLOOD COUNT 8.7 K/mm3 (4.0-10.0)
[2020-09-21 08:58] LABS: ALBUMIN 1.7 g/dl (3.4-5.0); BLOOD UREA NITROGEN 4.2 mg/dL (7-18); CALCIUM 7.6 mg/dL (8.5-10.1)
[2020-09-21 09:01] LABS: CREATININE 0.6 mg/dL (0.55-1.3)
[2020-09-21 09:03] LABS: BILIRUBIN,TOTAL 0.5 mg/dL (0.2-1); TOT PROT 5.7 g/dl (6.4-8.2)
[2020-09-21] MEDS: NICOTINE 14 MG/24 HOURS TOPICAL PATCH TD SCH (09:58)
[2020-09-21] MEDS: amLODIPine BESYLATE 10 MG TABLET (FP) PO SCH (09:59)
[2020-09-21] MEDS: MEGESTROL ACETATE 40 MG TABLET PO SCH ×2 (09:59→21:28)
[2020-09-21] MEDS: FERROUS SO4 325 MG TABLET (FP) PO SCH (09:59)
[2020-09-21] MEDS: ENOXAPARIN NA (PORCINE) 40 MG/0.4 ML DISP.SYRIN SQ SCH (09:59)
[2020-09-21] MEDS: THIAMINE HCL 100 MG TABLET (FP) PO SCH (09:59)
[2020-09-21] MEDS: SERTRALINE HCL 50 MG TABLET (FP) PO SCH (09:59)
[2020-09-21] MEDS: metoPROLOL SUCCINATE 25 MG TAB.SR.24H (FP) PO SCH (09:59)
[2020-09-21] MEDS: CYANOCOBALAMIN (VITAMIN B-12) 100 MCG TABLET PO SCH (10:27)
[2020-09-21] MEDS: KCL 10 MEQ IVPB 10 MEQ/100 ML INFUS.BAG IVPB SCH ×3 (13:12→15:41)
[2020-09-21] MEDS: GABAPENTIN 100 MG CAPSULE PO SCH (21:28)
[2020-09-21] MEDS: ATORVASTATIN CA 40 MG TABLET (FP) PO SCH (21:28)
[2020-09-21] MEDS: MIRTAZAPINE 15 MG TABLET (FP) PO SCH (21:29)
[2020-09-22] MEDS: POTASSIUM CHLORIDE 10 MEQ in SODIUM CHLORIDE 1,000 ML IV SCH ×2 (01:00→17:40)
[2020-09-22] MEDS: FUROSEMIDE 20 MG TABLET (FP) PO SCH ×2 (06:04→13:37)
[2020-09-22 07:25] LABS: MAGNESIUM 1.6 mg/dL (1.8-2.4)
[2020-09-22 07:29] LABS: PHOSPHOROUS 1.8 mg/dL (2.5-4.9)
[2020-09-22] MEDS ORDERED: PT OWN MED DRAWER 7, Y5N ONE ×6 (08:16→20:04)
[2020-09-22] MEDS: LIPASE/PROTEASE/AMYLASE 36,000 UNIT CAPSULE PO SCH ×3 (10:06→17:40)
[2020-09-22] MEDS: FERROUS SO4 325 MG TABLET (FP) PO SCH (10:07)
[2020-09-22] MEDS: metoPROLOL SUCCINATE 25 MG TAB.SR.24H (FP) PO SCH (10:07)
[2020-09-22] MEDS: amLODIPine BESYLATE 10 MG TABLET (FP) PO SCH (10:07)
[2020-09-22] MEDS: NICOTINE 14 MG/24 HOURS TOPICAL PATCH TD SCH (10:07)
[2020-09-22] MEDS: THIAMINE HCL 100 MG TABLET (FP) PO SCH (10:07)
[2020-09-22] MEDS: CYANOCOBALAMIN (VITAMIN B-12) 100 MCG TABLET PO SCH (10:08)
[2020-09-22] MEDS: ENOXAPARIN NA (PORCINE) 40 MG/0.4 ML DISP.SYRIN SQ SCH (10:08)
[2020-09-22] MEDS: MEGESTROL ACETATE 40 MG TABLET PO SCH ×2 (10:08→21:12)
[2020-09-22] MEDS: ACETAMINOPHEN 325 MG TABLET (FP) PO PRN (18:04)
[2020-09-22] MEDS: MIRTAZAPINE 15 MG TABLET (FP) PO SCH (21:12)
[2020-09-22] MEDS: ATORVASTATIN CA 40 MG TABLET (FP) PO SCH (21:12)
[2020-09-22] MEDS: GABAPENTIN 100 MG CAPSULE PO SCH (21:12)
[2020-09-22 21:13] LABS: CHLORIDE 120 mmol/L (98-107); POTASSIUM 3.8 mmol/L (3.5-5.1); SODIUM 148 mmol/L (136-145)
[2020-09-22 21:15] LABS: ALBUMIN 1.6 g/dl (3.4-5.0); ANION GAP 10 MMOL/L (8-16); CALCIUM 8.3 mg/dL (8.5-10.1); CO2 18 mmol/L (21-32)
[2020-09-22 21:16] LABS: GLUCOSE,RANDOM 253 mg/dL (74-106)
[2020-09-22 21:18] LABS: SGOT/AST 35 U/L (15-37); SGPT/ALT 14 U/L (13-61)
[2020-09-22 21:19] LABS: CREATININE 0.7 mg/dL (0.55-1.3)
[2020-09-22 21:20] LABS: BILIRUBIN,TOTAL 0.4 mg/dL (0.2-1); TOT PROT 5.3 g/dl (6.4-8.2)
[2020-09-22 21:21] LABS: ALK PHOS 213 U/L (45-117)
[2020-09-22] MEDS ORDERED: LORazepam 0.5 MG TABLET PO SCH (22:00)
[2020-09-22] MEDS: LORazepam 1 MG TABLET PO SCH (22:53)
[2020-09-23 04:39] LABS: MAGNESIUM 1.5 mg/dL (1.8-2.4)
[2020-09-23] MEDS: LORazepam 1 MG TABLET PO SCH ×2 (06:00→13:07)
[2020-09-23] MEDS: POTASSIUM CHLORIDE 10 MEQ in SODIUM CHLORIDE 1,000 ML IV SCH ×2 (09:29→17:06)
[2020-09-23] MEDS: FUROSEMIDE 20 MG TABLET (FP) PO SCH ×2 (09:30→13:08)
[2020-09-23] MEDS: LIPASE/PROTEASE/AMYLASE 36,000 UNIT CAPSULE PO SCH ×3 (09:30→17:06)
[2020-09-23] MEDS ORDERED: PT OWN MED DRAWER 7, Y5N ONE ×2 (10:29→20:00)
[2020-09-23] MEDS: amLODIPine BESYLATE 10 MG TABLET (FP) PO SCH (10:32)
[2020-09-23] MEDS: metoPROLOL SUCCINATE 25 MG TAB.SR.24H (FP) PO SCH (10:32)
[2020-09-23] MEDS: MEGESTROL ACETATE 40 MG TABLET PO SCH ×2 (10:32→21:39)
[2020-09-23] MEDS: THIAMINE HCL 100 MG TABLET (FP) PO SCH (10:32)
[2020-09-23] MEDS: FERROUS SO4 325 MG TABLET (FP) PO SCH (10:32)
[2020-09-23] MEDS: NICOTINE 14 MG/24 HOURS TOPICAL PATCH TD SCH (10:32)
[2020-09-23] MEDS: ENOXAPARIN NA (PORCINE) 40 MG/0.4 ML DISP.SYRIN SQ SCH (10:32)
[2020-09-23] MEDS: CYANOCOBALAMIN (VITAMIN B-12) 100 MCG TABLET PO SCH (10:32)
[2020-09-23] MEDS: ACETAMINOPHEN 325 MG TABLET (FP) PO PRN (12:58)
[2020-09-23 13:30] LABS: POTASSIUM 3.4 mmol/L (3.5-5.1)
[2020-09-23 13:32] LABS: ALBUMIN 1.7 g/dl (3.4-5.0); CALCIUM 8.4 mg/dL (8.5-10.1)
[2020-09-23 13:33] LABS: BLOOD UREA NITROGEN 6.5 mg/dL (7-18)
[2020-09-23 13:36] LABS: CREATININE 0.7 mg/dL (0.55-1.3)
[2020-09-23 13:38] LABS: BILIRUBIN,TOTAL 0.4 mg/dL (0.2-1); TOT PROT 5.4 g/dl (6.4-8.2)
[2020-09-23] MEDS: POTASSIUM CHLORIDE TABS 20 MEQ TABLET.ER (FP) PO ONE ×2 (16:05→16:54)
[2020-09-23] MEDS ORDERED: MAGNESIUM SULF 50% (8.12 MEQ/2 ML-1 GM VIAL) IVPB ONE (16:09)
[2020-09-23] MEDS: LORazepam 0.5 MG TABLET PO SCH (21:38)
[2020-09-23] MEDS: ATORVASTATIN CA 40 MG TABLET (FP) PO SCH (21:39)
[2020-09-23] MEDS: MIRTAZAPINE 15 MG TABLET (FP) PO SCH (21:39)
[2020-09-23] MEDS: GABAPENTIN 100 MG CAPSULE PO SCH (21:39)
[2020-09-24] MEDS: POTASSIUM CHLORIDE 10 MEQ in SODIUM CHLORIDE 1,000 ML IV SCH ×3 (00:27→18:36)
[2020-09-24] MEDS: LORazepam 0.5 MG TABLET PO SCH ×3 (06:26→21:32)
[2020-09-24] MEDS: FUROSEMIDE 20 MG TABLET (FP) PO SCH ×2 (06:27→16:21)
[2020-09-24 07:49] LABS: BASO % 0.4 % (0-2.0); EOS % 0.8 % (0-4.5); HEMATOCRIT 26.8 % (32.4-45.2); HEMOGLOBIN 8.6 GM/dL (10.7-15.3); LYMPH % 14.4 % (8-40); MCH 30.4 pg (25.7-33.7); MCHC 32.1 g/dl (32.0-36.0); MEAN CELL VOLUME 94.6 fl (80-96); MEAN PLT VOLUME 9.5 fl (7.5-11.1); MONO % 7.2 % (3.8-10.2); NEUT % 77.2 % (42.8-82.8); PLATELET COUNT 319 K/MM3 (134-434); RBC 2.83 M/mm3 (3.60-5.2); RDW 17.4 % (11.6-15.6); WHITE BLOOD COUNT 15.5 K/mm3 (4.0-10.0)
[2020-09-24] MEDS: ACETAMINOPHEN 325 MG TABLET (FP) PO PRN ×2 (08:14→14:48)
[2020-09-24 08:15] LABS: POTASSIUM 4.4 mmol/L (3.5-5.1)
[2020-09-24] MEDS: LIPASE/PROTEASE/AMYLASE 36,000 UNIT CAPSULE PO SCH ×3 (08:15→18:26)
[2020-09-24 08:18] LABS: CALCIUM 8.7 mg/dL (8.5-10.1)
[2020-09-24 08:19] LABS: ALBUMIN 1.7 g/dl (3.4-5.0); BLOOD UREA NITROGEN 5.6 mg/dL (7-18)
[2020-09-24 08:22] LABS: CREATININE 0.5 mg/dL (0.55-1.3)
[2020-09-24 08:24] LABS: BILIRUBIN,TOTAL 0.6 mg/dL (0.2-1); TOT PROT 5.8 g/dl (6.4-8.2)
[2020-09-24] MEDS: amLODIPine BESYLATE 10 MG TABLET (FP) PO SCH (10:02)
[2020-09-24] MEDS: NICOTINE 14 MG/24 HOURS TOPICAL PATCH TD SCH (10:02)
[2020-09-24] MEDS: THIAMINE HCL 100 MG TABLET (FP) PO SCH (10:02)
[2020-09-24] MEDS: CYANOCOBALAMIN (VITAMIN B-12) 100 MCG TABLET PO SCH (10:02)
[2020-09-24] MEDS: metoPROLOL SUCCINATE 25 MG TAB.SR.24H (FP) PO SCH (10:02)
[2020-09-24] MEDS: FERROUS SO4 325 MG TABLET (FP) PO SCH (10:02)
[2020-09-24] MEDS: MEGESTROL ACETATE 40 MG TABLET PO SCH ×2 (10:02→21:32)
[2020-09-24] MEDS: ENOXAPARIN NA (PORCINE) 40 MG/0.4 ML DISP.SYRIN SQ SCH (10:02)
[2020-09-24] MEDS ORDERED: PT OWN MED DRAWER 7, Y5N ONE (21:30)
[2020-09-24] MEDS: MIRTAZAPINE 15 MG TABLET (FP) PO SCH (21:32)
[2020-09-24] MEDS: ATORVASTATIN CA 40 MG TABLET (FP) PO SCH (21:32)
[2020-09-24] MEDS: GABAPENTIN 100 MG CAPSULE PO SCH (21:32)
[2020-09-25] MEDS: FUROSEMIDE 20 MG TABLET (FP) PO SCH ×2 (06:21→14:05)
[2020-09-25] MEDS: LORazepam 0.5 MG TABLET PO SCH ×3 (06:21→21:52)
[2020-09-25] MEDS ORDERED: PT OWN MED DRAWER 7, Y5N ONE ×5 (08:29→21:16)
[2020-09-25] MEDS: LIPASE/PROTEASE/AMYLASE 36,000 UNIT CAPSULE PO SCH ×3 (08:40→18:25)
[2020-09-25] MEDS: POTASSIUM CHLORIDE 10 MEQ in SODIUM CHLORIDE 1,000 ML IV SCH (09:31)
[2020-09-25] MEDS: amLODIPine BESYLATE 10 MG TABLET (FP) PO SCH (10:45)
[2020-09-25] MEDS: FERROUS SO4 325 MG TABLET (FP) PO SCH (10:45)
[2020-09-25] MEDS: THIAMINE HCL 100 MG TABLET (FP) PO SCH (10:45)
[2020-09-25] MEDS: metoPROLOL SUCCINATE 25 MG TAB.SR.24H (FP) PO SCH (10:45)
[2020-09-25] MEDS: MULTIVITAMINS THER W-MINERALS COMBO TABLET (FP) PO SCH (10:45)
[2020-09-25] MEDS: ENOXAPARIN NA (PORCINE) 40 MG/0.4 ML DISP.SYRIN SQ SCH (10:45)
[2020-09-25] MEDS: CYANOCOBALAMIN (VITAMIN B-12) 100 MCG TABLET PO SCH (10:45)
[2020-09-25] MEDS: NICOTINE 14 MG/24 HOURS TOPICAL PATCH TD SCH (10:46)
[2020-09-25] MEDS: MEGESTROL ACETATE 40 MG TABLET PO SCH ×2 (10:46→21:53)
[2020-09-25 11:59] LABS: BASO % 0.5 % (0-2.0); EOS % 2.6 % (0-4.5); HEMATOCRIT 25.5 % (32.4-45.2); HEMOGLOBIN 8.4 GM/dL (10.7-15.3); LYMPH % 17.7 % (8-40); MCH 30.7 pg (25.7-33.7); MEAN CELL VOLUME 93.1 fl (80-96); MEAN PLT VOLUME 9.3 fl (7.5-11.1); MONO % 9.6 % (3.8-10.2); NEUT % 69.6 % (42.8-82.8); PLATELET COUNT 412 K/MM3 (134-434); RBC 2.74 M/mm3 (3.60-5.2); RDW 17.6 % (11.6-15.6); WHITE BLOOD COUNT 10.4 K/mm3 (4.0-10.0)
[2020-09-25 12:24] LABS: ALBUMIN 1.7 g/dl (3.4-5.0); CALCIUM 8.5 mg/dL (8.5-10.1)
[2020-09-25 13:35] LABS: BILIRUBIN,TOTAL 0.4 mg/dL (0.2-1); BLOOD UREA NITROGEN 8.2 mg/dL (7-18); CREATININE 0.6 mg/dL (0.55-1.3); POTASSIUM 3.7 mmol/L (3.5-5.1); TOT PROT 6.1 g/dl (6.4-8.2)
[2020-09-25] MEDS: NAPH,MB-DB/K PH,MBDB POWDER PACKET PO SCH ×2 (14:05→21:53)
[2020-09-25] MEDS ORDERED: SODIUM BICARBONATE 8.4% 50 MEQ/50 ML DISP.SYRIN IVPUSH ONE (17:00)
[2020-09-25] MEDS: ACETAMINOPHEN 325 MG TABLET (FP) PO PRN (18:24)
[2020-09-25] MEDS: SODIUM BICARBONATE 650 MG TABLET PO SCH (21:53)
[2020-09-25] MEDS: MIRTAZAPINE 15 MG TABLET (FP) PO SCH (21:53)
[2020-09-25] MEDS: GABAPENTIN 100 MG CAPSULE PO SCH (21:53)
[2020-09-25] MEDS: ATORVASTATIN CA 40 MG TABLET (FP) PO SCH (21:53)
[2020-09-26] MEDS: LORazepam 0.5 MG TABLET PO SCH ×3 (06:20→21:21)
[2020-09-26] MEDS: FUROSEMIDE 20 MG TABLET (FP) PO SCH ×2 (06:20→13:44)
[2020-09-26 07:36] LABS: BASO % 0.4 % (0-2.0); EOS % 1.2 % (0-4.5); HEMATOCRIT 29.3 % (32.4-45.2); HEMOGLOBIN 9.4 GM/dL (10.7-15.3); MCHC 32.1 g/dl (32.0-36.0); MEAN CELL VOLUME 93.3 fl (80-96); MEAN PLT VOLUME 9.2 fl (7.5-11.1); MONO % 7.9 % (3.8-10.2); NEUT % 74.5 % (42.8-82.8); PLATELET COUNT 504 K/MM3 (134-434); RBC 3.14 M/mm3 (3.60-5.2); RDW 17.2 % (11.6-15.6); WHITE BLOOD COUNT 13.2 K/mm3 (4.0-10.0)
[2020-09-26] MEDS ORDERED: PT OWN MED DRAWER 7, Y5N ONE ×4 (08:52→20:03)
[2020-09-26] MEDS: ENOXAPARIN NA (PORCINE) 40 MG/0.4 ML DISP.SYRIN SQ SCH (09:11)
[2020-09-26] MEDS: NICOTINE 14 MG/24 HOURS TOPICAL PATCH TD SCH (09:11)
[2020-09-26] MEDS: NAPH,MB-DB/K PH,MBDB POWDER PACKET PO SCH ×2 (09:12→21:22)
[2020-09-26] MEDS: LIPASE/PROTEASE/AMYLASE 36,000 UNIT CAPSULE PO SCH ×3 (09:12→17:26)
[2020-09-26] MEDS: metoPROLOL SUCCINATE 25 MG TAB.SR.24H (FP) PO SCH (09:13)
[2020-09-26] MEDS: THIAMINE HCL 100 MG TABLET (FP) PO SCH (09:13)
[2020-09-26] MEDS: amLODIPine BESYLATE 10 MG TABLET (FP) PO SCH (09:13)
[2020-09-26] MEDS: SODIUM BICARBONATE 650 MG TABLET PO SCH ×2 (09:13→21:22)
[2020-09-26] MEDS: MULTIVITAMINS THER W-MINERALS COMBO TABLET (FP) PO SCH (09:13)
[2020-09-26] MEDS: FERROUS SO4 325 MG TABLET (FP) PO SCH (09:13)
[2020-09-26] MEDS: MEGESTROL ACETATE 40 MG TABLET PO SCH ×2 (09:14→21:21)
[2020-09-26] MEDS: CYANOCOBALAMIN (VITAMIN B-12) 100 MCG TABLET PO SCH (09:15)
[2020-09-26] MEDS: ACETAMINOPHEN 325 MG TABLET (FP) PO PRN (14:32)
[2020-09-26] MEDS ORDERED: DEXTROSE 5%-WATER - 50 ML IVPB ONE (20:03)
[2020-09-26] MEDS ORDERED: PIPERACILLIN/TAZOBACTAM 3.375 GM VIAL IVPB ONE (20:03)
[2020-09-26] MEDS: PIPERACILLIN/TAZOB 3.375 GM 3.375 GM in DEXTROSE 5%-WATER - 50 ML IVPB SCH (21:13)
[2020-09-26] MEDS: GABAPENTIN 100 MG CAPSULE PO SCH (21:21)
[2020-09-26] MEDS: ATORVASTATIN CA 40 MG TABLET (FP) PO SCH (21:21)
[2020-09-26] MEDS: MIRTAZAPINE 15 MG TABLET (FP) PO SCH (21:22)
[2020-09-26 21:26] LABS: CALCIUM 7.9 mg/dL (8.5-10.1); POTASSIUM 3.1 mmol/L (3.5-5.1)
[2020-09-26 21:27] LABS: ALBUMIN 1.4 g/dl (3.4-5.0); BLOOD UREA NITROGEN 11.6 mg/dL (7-18)
[2020-09-26 21:30] LABS: CREATININE 0.7 mg/dL (0.55-1.3)
[2020-09-26 21:32] LABS: BILIRUBIN,TOTAL 0.2 mg/dL (0.2-1); TOT PROT 5.4 g/dl (6.4-8.2)
[2020-09-27] MEDS ORDERED: PIPERACILLIN/TAZOBACTAM 3.375 GM VIAL IVPB ONE ×3 (00:35→17:21)
[2020-09-27] MEDS ORDERED: DEXTROSE 5%-WATER - 50 ML IVPB ONE ×3 (00:36→17:22)
[2020-09-27] MEDS: PIPERACILLIN/TAZOB 3.375 GM 3.375 GM in DEXTROSE 5%-WATER - 50 ML IVPB SCH ×3 (00:59→17:26)
[2020-09-27] MEDS: FUROSEMIDE 20 MG TABLET (FP) PO SCH ×2 (07:00→13:13)
[2020-09-27] MEDS: LORazepam 0.5 MG TABLET PO SCH ×3 (07:00→21:39)
[2020-09-27] MEDS ORDERED: PT OWN MED DRAWER 7, Y5N ONE ×5 (07:52→20:04)
[2020-09-27 08:28] LABS: BASO % 0.2 % (0-2.0); EOS % 3.9 % (0-4.5); HEMATOCRIT 23.4 % (32.4-45.2); HEMOGLOBIN 7.8 GM/dL (10.7-15.3); LYMPH % 22.2 % (8-40); MCH 30.4 pg (25.7-33.7); MCHC 33.2 g/dl (32.0-36.0); MEAN CELL VOLUME 91.7 fl (80-96); MEAN PLT VOLUME 8.5 fl (7.5-11.1); MONO % 8.8 % (3.8-10.2); NEUT % 64.9 % (42.8-82.8); PLATELET COUNT 500 K/MM3 (134-434); RBC 2.55 M/mm3 (3.60-5.2); RDW 16.8 % (11.6-15.6); WHITE BLOOD COUNT 8.3 K/mm3 (4.0-10.0)
[2020-09-27 08:32] LABS: INR 1.09 (0.83-1.09); PROTHROMBIN TIME (PATIENT) 13.4 SEC (9.7-13.0)
[2020-09-27] MEDS: LIPASE/PROTEASE/AMYLASE 36,000 UNIT CAPSULE PO SCH ×3 (08:34→17:27)
[2020-09-27 08:35] LABS: ACTIVATED PTT 32.8 SECONDS (25.2-36.5)
[2020-09-27 08:46] LABS: POTASSIUM 3.3 mmol/L (3.5-5.1)
[2020-09-27 08:47] LABS: CALCIUM 8.5 mg/dL (8.5-10.1)
[2020-09-27 08:48] LABS: ALBUMIN 1.5 g/dl (3.4-5.0); BLOOD UREA NITROGEN 9.9 mg/dL (7-18)
[2020-09-27 08:51] LABS: CREATININE 0.6 mg/dL (0.55-1.3)
[2020-09-27 08:52] LABS: BILIRUBIN,TOTAL 0.2 mg/dL (0.2-1)
[2020-09-27 08:53] LABS: TOT PROT 5.8 g/dl (6.4-8.2)
[2020-09-27] MEDS: THIAMINE HCL 100 MG TABLET (FP) PO SCH (10:24)
[2020-09-27] MEDS: CYANOCOBALAMIN (VITAMIN B-12) 100 MCG TABLET PO SCH (10:24)
[2020-09-27] MEDS: SODIUM BICARBONATE 650 MG TABLET PO SCH ×2 (10:24→21:41)
[2020-09-27] MEDS: MULTIVITAMINS THER W-MINERALS COMBO TABLET (FP) PO SCH (10:25)
[2020-09-27] MEDS: MEGESTROL ACETATE 40 MG TABLET PO SCH ×2 (10:25→21:40)
[2020-09-27] MEDS: FERROUS SO4 325 MG TABLET (FP) PO SCH (10:25)
[2020-09-27] MEDS: metoPROLOL SUCCINATE 25 MG TAB.SR.24H (FP) PO SCH (10:25)
[2020-09-27] MEDS: amLODIPine BESYLATE 10 MG TABLET (FP) PO SCH (10:25)
[2020-09-27] MEDS: ENOXAPARIN NA (PORCINE) 40 MG/0.4 ML DISP.SYRIN SQ SCH (10:25)
[2020-09-27] MEDS: NICOTINE 14 MG/24 HOURS TOPICAL PATCH TD SCH (10:25)
[2020-09-27] MEDS: ACETAMINOPHEN 325 MG TABLET (FP) PO PRN (13:12)
[2020-09-27] MEDS ORDERED: GABAPENTIN 100 MG CAPSULE PO ONE (17:15)
[2020-09-27] MEDS ORDERED: POTASSIUM CHLORIDE TABS 20 MEQ TABLET.ER (FP) PO ONE (20:18)
[2020-09-27] MEDS: ATORVASTATIN CA 40 MG TABLET (FP) PO SCH (21:39)
[2020-09-27] MEDS: MIRTAZAPINE 15 MG TABLET (FP) PO SCH (21:40)
[2020-09-27] MEDS: GABAPENTIN 100 MG CAPSULE PO SCH (21:40)
[2020-09-28] MEDS ORDERED: PIPERACILLIN/TAZOBACTAM 3.375 GM VIAL IVPB ONE ×3 (00:44→18:19)
[2020-09-28] MEDS ORDERED: DEXTROSE 5%-WATER - 50 ML IVPB ONE ×3 (00:44→18:19)
[2020-09-28] MEDS: PIPERACILLIN/TAZOB 3.375 GM 3.375 GM in DEXTROSE 5%-WATER - 50 ML IVPB SCH ×3 (01:00→18:24)
[2020-09-28] MEDS: FUROSEMIDE 20 MG TABLET (FP) PO SCH ×2 (06:26→13:22)
[2020-09-28] MEDS: LORazepam 0.5 MG TABLET PO SCH ×3 (06:26→22:25)
[2020-09-28 08:12] LABS: BASO % 0.4 % (0-2.0); EOS % 4.5 % (0-4.5); HEMATOCRIT 24.3 % (32.4-45.2); HEMOGLOBIN 8.3 GM/dL (10.7-15.3); MCH 31.3 pg (25.7-33.7); MCHC 34.3 g/dl (32.0-36.0); MEAN CELL VOLUME 91.3 fl (80-96); MONO % 10.3 % (3.8-10.2); NEUT % 59.8 % (42.8-82.8); PLATELET COUNT 623 K/MM3 (134-434); RBC 2.66 M/mm3 (3.60-5.2); RDW 16.7 % (11.6-15.6); WHITE BLOOD COUNT 8.9 K/mm3 (4.0-10.0)
[2020-09-28 08:29] LABS: POTASSIUM 3.9 mmol/L (3.5-5.1)
[2020-09-28 08:40] LABS: ALBUMIN 1.8 g/dl (3.4-5.0); BLOOD UREA NITROGEN 9.2 mg/dL (7-18)
[2020-09-28 08:43] LABS: CALCIUM 9.4 mg/dL (8.5-10.1)
[2020-09-28 08:45] LABS: BILIRUBIN,TOTAL 0.2 mg/dL (0.2-1); TOT PROT 6.6 g/dl (6.4-8.2)
[2020-09-28 08:46] LABS: CREATININE 0.6 mg/dL (0.55-1.3)
[2020-09-28] MEDS: LIPASE/PROTEASE/AMYLASE 36,000 UNIT CAPSULE PO SCH ×3 (08:56→18:25)
[2020-09-28] MEDS: NICOTINE 14 MG/24 HOURS TOPICAL PATCH TD SCH (09:06)
[2020-09-28] MEDS: amLODIPine BESYLATE 10 MG TABLET (FP) PO SCH (09:06)
[2020-09-28] MEDS: POTASSIUM CHLORIDE TABS 10 MEQ TABLET.ER (FP) PO SCH (09:06)
[2020-09-28] MEDS: metoPROLOL SUCCINATE 25 MG TAB.SR.24H (FP) PO SCH (09:06)
[2020-09-28] MEDS: SODIUM BICARBONATE 650 MG TABLET PO SCH (09:06)
[2020-09-28] MEDS: ENOXAPARIN NA (PORCINE) 40 MG/0.4 ML DISP.SYRIN SQ SCH (09:06)
[2020-09-28] MEDS: CYANOCOBALAMIN (VITAMIN B-12) 100 MCG TABLET PO SCH (09:06)
[2020-09-28] MEDS: MULTIVITAMINS THER W-MINERALS COMBO TABLET (FP) PO SCH (09:06)
[2020-09-28] MEDS: MEGESTROL ACETATE 40 MG TABLET PO SCH ×2 (09:06→22:32)
[2020-09-28] MEDS: THIAMINE HCL 100 MG TABLET (FP) PO SCH (09:06)
[2020-09-28] MEDS: FERROUS SO4 325 MG TABLET (FP) PO SCH (09:06)
[2020-09-28] MEDS: ACETAMINOPHEN 325 MG TABLET (FP) PO PRN (15:18)
[2020-09-28] MEDS ORDERED: PT OWN MED DRAWER 7, Y5N ONE (15:58)
[2020-09-28] MEDS: ATORVASTATIN CA 40 MG TABLET (FP) PO SCH (22:25)
[2020-09-28] MEDS: GABAPENTIN 100 MG CAPSULE PO SCH (22:26)
[2020-09-28] MEDS: MIRTAZAPINE 15 MG TABLET (FP) PO SCH (22:26)
[2020-09-29] MEDS ORDERED: DEXTROSE 5%-WATER - 50 ML IVPB ONE ×2 (00:32→09:07)
[2020-09-29] MEDS ORDERED: PIPERACILLIN/TAZOBACTAM 3.375 GM VIAL IVPB ONE ×2 (00:32→09:06)
[2020-09-29] MEDS: PIPERACILLIN/TAZOB 3.375 GM 3.375 GM in DEXTROSE 5%-WATER - 50 ML IVPB SCH ×2 (01:10→09:24)
[2020-09-29] MEDS: LORazepam 0.5 MG TABLET PO SCH ×3 (06:14→21:20)
[2020-09-29] MEDS: FUROSEMIDE 20 MG TABLET (FP) PO SCH ×2 (06:15→13:52)
[2020-09-29] MEDS ORDERED: PT OWN MED DRAWER 7, Y5N ONE ×6 (06:28→17:27)
[2020-09-29] MEDS: LIPASE/PROTEASE/AMYLASE 36,000 UNIT CAPSULE PO SCH ×3 (08:24→17:29)
[2020-09-29] MEDS: ENOXAPARIN NA (PORCINE) 40 MG/0.4 ML DISP.SYRIN SQ SCH (09:20)
[2020-09-29] MEDS: POTASSIUM CHLORIDE TABS 10 MEQ TABLET.ER (FP) PO SCH (09:21)
[2020-09-29] MEDS: MULTIVITAMINS THER W-MINERALS COMBO TABLET (FP) PO SCH (09:21)
[2020-09-29] MEDS: metoPROLOL SUCCINATE 25 MG TAB.SR.24H (FP) PO SCH (09:21)
[2020-09-29] MEDS: FERROUS SO4 325 MG TABLET (FP) PO SCH (09:21)
[2020-09-29] MEDS: THIAMINE HCL 100 MG TABLET (FP) PO SCH (09:21)
[2020-09-29] MEDS: amLODIPine BESYLATE 10 MG TABLET (FP) PO SCH (09:21)
[2020-09-29] MEDS: NICOTINE 14 MG/24 HOURS TOPICAL PATCH TD SCH (09:22)
[2020-09-29] MEDS: MEGESTROL ACETATE 40 MG TABLET PO SCH ×2 (09:22→21:20)
[2020-09-29] MEDS: CYANOCOBALAMIN (VITAMIN B-12) 100 MCG TABLET PO SCH (09:23)
[2020-09-29 10:12] LABS: ALBUMIN 1.9 g/dl (3.4-5.0); BILIRUBIN,TOTAL 0.3 mg/dL (0.2-1); BLOOD UREA NITROGEN 7.8 mg/dL (7-18); CREATININE 0.5 mg/dL (0.55-1.3); POTASSIUM 4.5 mmol/L (3.5-5.1); TOT PROT 7.1 g/dl (6.4-8.2)
[2020-09-29] MEDS: AMOX TR/POT CLAV 875MG/125MG TABLETS (FP) PO SCH ×2 (11:10→17:29)
[2020-09-29 21:19] VITALS: BP 113/70; PULSE 96; TEMP 99.3
[2020-09-29] MEDS: MIRTAZAPINE 15 MG TABLET (FP) PO SCH (21:21)
[2020-09-29] MEDS: ATORVASTATIN CA 40 MG TABLET (FP) PO SCH (21:22)
[2020-09-29] MEDS: GABAPENTIN 100 MG CAPSULE PO SCH (21:27)
[2020-09-30] MEDS ORDERED: FUROSEMIDE 20 MG TABLET (FP) PO SCH (10:00)
== END 2020-09-29 22:00 | DRG 438 ==
LOC: JER 16:31 → JERBED 09-17 00:16 → J4W 09-17 20:23 → J8W 09-28 16:35
PROVIDERS: ADMIT Internal Medicine; ATTEND Internal Medicine
PROC: 30233N1 Transfusion of Nonautologous Red Blood Cells into Peripheral Vein, Percutaneous Approach (ICD-10-PCS; principal; 2020-09-18)
DX: K85.20 Alcohol induced acute pancreatitis without necrosis or infection (principal); E43 Unspecified severe protein-calorie malnutrition; Z68.1 Body mass index [BMI] 19.9 or less, adult; F10.239 Alcohol dependence with withdrawal, unspecified; I24.8 Other forms of acute ischemic heart disease; R64 Cachexia; I50.32 Chronic diastolic (congestive) heart failure; E87.0 Hyperosmolality and hypernatremia; N39.0 Urinary tract infection, site not specified; E87.2 Acidosis; R29.6 Repeated falls; R62.7 Adult failure to thrive; F17.210 Nicotine dependence, cigarettes, uncomplicated; E87.6 Hypokalemia; D64.9 Anemia, unspecified; R55 Syncope and collapse; I25.10 Atherosclerotic heart disease of native coronary artery without angina pectoris; Z95.1 Presence of aortocoronary bypass graft; R19.7 Diarrhea, unspecified; F41.8 Other specified anxiety disorders; E78.5 Hyperlipidemia, unspecified; K21.9 Gastro-esophageal reflux disease without esophagitis
CPT/HCPCS: 36415; 36430; 36511; 70450-TC; 71045-TC-FY; 71250-TC; 72125-TC; 73610-TC-LT-FY; 73630-TC-LT; 74177-TC; 80053; 80061; 80307; 82150; 82272; 82550; 82607; 82728; 83010; 83540; 83550; 83615; 83690; 83721; 83735; 83880; 84100; 84443; 84484; 85025; 85045; 85384; 85610; 85651; 85730; 86038; 86140; 86431; 86850; 86900; 86901; 86922; 87040; 87045; 87046; 87086; 87186; 87324; 87389; 87449; 90832-95; 93005; 93010; 93306-TC; 97116-GP; 97161-GP; 99285-25; C9803; J1756; J8999; P9038; P9058; Q9967; U0003; U0005

== ENCOUNTER 2021-03-05 14:21 | Inpatient (IN) | payer OTHER ==
[2021-03-05 17:05] LABS: BASO % 0.4 % (0-2.0); EOS % 0.7 % (0-4.5); HEMATOCRIT 31.8 % (32.4-45.2); HEMOGLOBIN 10.9 GM/dL (10.7-15.3); LYMPH % 27.5 % (8-40); MCH 36.2 pg (25.7-33.7); MCHC 34.2 g/dl (32.0-36.0); MEAN CELL VOLUME 105.9 fl (80-96); MEAN PLT VOLUME 9.6 fl (7.5-11.1); MONO % 4.7 % (3.8-10.2); NEUT % 66.7 % (42.8-82.8); PLATELET COUNT 175 10^3/uL (134-434); RDW 16.1 % (11.6-15.6); WHITE BLOOD COUNT 7.9 K/mm3 (4.0-10.0)
[2021-03-05 17:14] LABS: VENOUS BASE EXCESS -12.6 mmol/L (-2-2); VENOUS O2 SATURATION 97.6 % (70-80); VENOUS PCO2 22.1 mmHg (38-52); VENOUS PH 7.332 (7.310-7.410)
[2021-03-05] MEDS ORDERED: metoPROLOL SUCCINATE 25 MG TAB.SR.24H (FP) PO ONE (17:22)
[2021-03-05 17:30] LABS: CHLORIDE 103 mmol/L (98-107); SODIUM 137 mmol/L (136-145)
[2021-03-05 17:32] LABS: CALCIUM 8.6 mg/dL (8.5-10.1)
[2021-03-05 17:33] LABS: ALBUMIN 2.7 g/dl (3.4-5.0); BLOOD UREA NITROGEN 10.9 mg/dL (7-18); CO2 12 mmol/L (21-32); GLUCOSE,RANDOM 57 mg/dL (74-106); MAGNESIUM 1.5 mg/dL (1.8-2.4)
[2021-03-05 17:36] LABS: CREATININE 0.6 mg/dL (0.55-1.3); PHOSPHOROUS 3.2 mg/dL (2.5-4.9); SGOT/AST 25 U/L (15-37); SGPT/ALT 9 U/L (13-61)
[2021-03-05 17:37] LABS: BILIRUBIN,TOTAL 0.4 mg/dL (0.2-1)
[2021-03-05 17:38] LABS: TOT PROT 6.2 g/dl (6.4-8.2)
[2021-03-05 17:39] LABS: ALK PHOS 104 U/L (45-117)
[2021-03-05 17:40] LABS: ANION GAP 21 MMOL/L (8-16)
[2021-03-05] MEDS ORDERED: MAGNESIUM OXIDE 400 MG TABLET (FP) PO ONE (17:43)
[2021-03-05 17:44] LABS: ANISOCYTOSIS 2+; MACROCYTOSIS 2+; PLATELET ESTIMATE NORMAL
[2021-03-05] MEDS ORDERED: POTASSIUM CHLORIDE ORAL LIQUID 20 MEQ/15 ML PO ONE (17:48)
[2021-03-05] MEDS ORDERED: POTASSIUM CHLORIDE TABS 20 MEQ TABLET.ER (FP) PO ONE ×2 (17:48→18:42)
[2021-03-05] MEDS ORDERED: metoPROLOL SUCCINATE 25 MG TAB.SR.24H (FP) ONE (17:50)
[2021-03-05] MEDS ORDERED: MAGNESIUM OXIDE 400 MG TABLET (FP) ONE (18:42)
[2021-03-05] MEDS ORDERED: ONDANSETRON 4 MG/2 ML VIAL ONE (19:54)
[2021-03-05] MEDS ORDERED: KCL 10 MEQ IVPB 30 MEQ/300 ML INFUS.BAG IVPB ONE (19:54)
[2021-03-05] MEDS ORDERED: POTASSIUM CHLORIDE 20 MEQ PREMIX IVPB 100 ML IVPB SCH (20:00)
[2021-03-05] MEDS: ONDANSETRON 4 MG/2 ML VIAL IVPUSH SCH (20:05)
[2021-03-05] MEDS: KCL 10 MEQ IVPB 10 MEQ/100 ML INFUS.BAG IVPB SCH ×3 (20:05→22:25)
[2021-03-05] MEDS ORDERED: GABAPENTIN 100 MG CAPSULE ONE (22:32)
[2021-03-05] MEDS ORDERED: ATORVASTATIN CA 40 MG TABLET (FP) ONE (22:32)
[2021-03-05] MEDS: ATORVASTATIN CA 40 MG TABLET (FP) PO SCH (22:37)
[2021-03-05] MEDS: GABAPENTIN 100 MG CAPSULE PO SCH (22:37)
[2021-03-06] MEDS ORDERED: POTASSIUM CHLORIDE TABS 20 MEQ TABLET.ER (FP) PO ONE (08:14)
[2021-03-06] MEDS ORDERED: metoPROLOL SUCCINATE 25 MG TAB.SR.24H (FP) ONE (08:15)
[2021-03-06] MEDS ORDERED: amLODIPine BESYLATE 5 MG TABLET (FP) ONE (08:15)
[2021-03-06] MEDS ORDERED: FOLIC ACID 1 MG TABLET (FP) ONE (08:15)
[2021-03-06] MEDS ORDERED: THIAMINE HCL 100 MG TABLET (FP) ONE (08:15)
[2021-03-06] MEDS ORDERED: SERTRALINE HCL 50 MG TABLET (FP) ONE (08:15)
[2021-03-06] MEDS ORDERED: FERROUS SO4 325 MG TABLET (FP) ONE (08:16)
[2021-03-06] MEDS ORDERED: ENOXAPARIN NA (PORCINE) 40 MG/0.4 ML DISP.SYRIN SQ ONE (08:16)
[2021-03-06 08:52] LABS: BASO % 0.7 % (0-2.0); EOS % 0.5 % (0-4.5); HEMATOCRIT 32.7 % (32.4-45.2); HEMOGLOBIN 11.2 GM/dL (10.7-15.3); MCH 36.1 pg (25.7-33.7); MCHC 34.4 g/dl (32.0-36.0); MONO % 7.6 % (3.8-10.2); NEUT % 70.2 % (42.8-82.8); PLATELET COUNT 147 10^3/uL (134-434); RBC 3.11 M/mm3 (3.60-5.2); RDW 16.3 % (11.6-15.6); WHITE BLOOD COUNT 7.6 K/mm3 (4.0-10.0)
[2021-03-06] MEDS: THIAMINE HCL 100 MG TABLET (FP) PO SCH (09:13)
[2021-03-06] MEDS: FERROUS SO4 325 MG TABLET (FP) PO SCH (09:13)
[2021-03-06] MEDS: FOLIC ACID 1 MG TABLET (FP) PO SCH (09:13)
[2021-03-06] MEDS: ENOXAPARIN NA (PORCINE) 40 MG/0.4 ML DISP.SYRIN SQ SCH (09:13)
[2021-03-06] MEDS: SERTRALINE HCL 50 MG TABLET (FP) PO SCH (09:13)
[2021-03-06] MEDS: amLODIPine BESYLATE 5 MG TABLET (FP) PO SCH (09:13)
[2021-03-06] MEDS: metoPROLOL SUCCINATE 25 MG TAB.SR.24H (FP) PO SCH (09:13)
[2021-03-06] MEDS: POTASSIUM CHLORIDE TABS 20 MEQ TABLET.ER (FP) PO SCH (09:13)
[2021-03-06 09:14] LABS: CALCIUM 8.7 mg/dL (8.5-10.1)
[2021-03-06 09:15] LABS: ALBUMIN 2.8 g/dl (3.4-5.0); BLOOD UREA NITROGEN 12.2 mg/dL (7-18)
[2021-03-06 09:18] LABS: CREATININE 0.7 mg/dL (0.55-1.3)
[2021-03-06 09:20] LABS: BILIRUBIN,TOTAL 0.9 mg/dL (0.2-1); TOT PROT 6.4 g/dl (6.4-8.2)
[2021-03-06] MEDS: MEGESTROL ACETATE 40 MG TABLET PO SCH (10:33)
[2021-03-06] MEDS: LIPASE/PROTEASE/AMYLASE 36,000 UNIT CAPSULE PO SCH ×3 (10:33→17:50)
[2021-03-06] MEDS: CYANOCOBALAMIN (VITAMIN B-12) 100 MCG TABLET PO SCH (10:34)
[2021-03-06] MEDS: ONDANSETRON 4 MG/2 ML VIAL IVPUSH SCH ×3 (17:47→17:49)
[2021-03-06] MEDS ORDERED: ATORVASTATIN CA 40 MG TABLET (FP) ONE (21:24)
[2021-03-06] MEDS ORDERED: GABAPENTIN 100 MG CAPSULE ONE (21:25)
[2021-03-06] MEDS ORDERED: ATORVASTATIN CA 10 MG TABLET (FP) ONE (21:37)
[2021-03-06] MEDS: ATORVASTATIN CA 40 MG TABLET (FP) PO SCH (21:50)
[2021-03-06] MEDS: GABAPENTIN 100 MG CAPSULE PO SCH (21:51)
[2021-03-06 23:35] VITALS: BMI 13.0
[2021-03-07] MEDS: ACETAMINOPHEN 325 MG TABLET (FP) PO PRN ×2 (00:33→21:29)
[2021-03-07] MEDS ORDERED: GABAPENTIN 100 MG CAPSULE PO ONE (00:45)
[2021-03-07] MEDS ORDERED: PT OWN MED DRAWER 7, Y5N ONE (08:11)
[2021-03-07 08:55] LABS: BASO % 0.3 % (0-2.0); EOS % 0.8 % (0-4.5); HEMATOCRIT 30.2 % (32.4-45.2); HEMOGLOBIN 10.5 GM/dL (10.7-15.3); LYMPH % 25.6 % (8-40); MCH 36.1 pg (25.7-33.7); MCHC 34.7 g/dl (32.0-36.0); MEAN CELL VOLUME 104.1 fl (80-96); MEAN PLT VOLUME 9.8 fl (7.5-11.1); MONO % 7.4 % (3.8-10.2); NEUT % 65.9 % (42.8-82.8); PLATELET COUNT 123 10^3/uL (134-434); RDW 15.9 % (11.6-15.6); WHITE BLOOD COUNT 5.1 K/mm3 (4.0-10.0)
[2021-03-07] MEDS: LIPASE/PROTEASE/AMYLASE 36,000 UNIT CAPSULE PO SCH ×3 (08:58→17:31)
[2021-03-07 09:28] LABS: CALCIUM 8.7 mg/dL (8.5-10.1)
[2021-03-07 09:29] LABS: ALBUMIN 2.5 g/dl (3.4-5.0); BLOOD UREA NITROGEN 12.5 mg/dL (7-18)
[2021-03-07 09:33] LABS: BILIRUBIN,TOTAL 0.8 mg/dL (0.2-1)
[2021-03-07 09:35] LABS: CREATININE 0.6 mg/dL (0.55-1.3)
[2021-03-07 09:36] LABS: TOT PROT 5.8 g/dl (6.4-8.2)
[2021-03-07] MEDS: amLODIPine BESYLATE 5 MG TABLET (FP) PO SCH (10:21)
[2021-03-07] MEDS: SERTRALINE HCL 50 MG TABLET (FP) PO SCH (10:21)
[2021-03-07] MEDS: POTASSIUM CHLORIDE TABS 20 MEQ TABLET.ER (FP) PO SCH ×2 (10:21→10:40)
[2021-03-07] MEDS: FERROUS SO4 325 MG TABLET (FP) PO SCH (10:21)
[2021-03-07] MEDS: THIAMINE HCL 100 MG TABLET (FP) PO SCH (10:21)
[2021-03-07] MEDS: ENOXAPARIN NA (PORCINE) 40 MG/0.4 ML DISP.SYRIN SQ SCH (10:21)
[2021-03-07] MEDS: metoPROLOL SUCCINATE 25 MG TAB.SR.24H (FP) PO SCH (10:21)
[2021-03-07] MEDS: MEGESTROL ACETATE 40 MG TABLET PO SCH (10:22)
[2021-03-07] MEDS: CYANOCOBALAMIN (VITAMIN B-12) 100 MCG TABLET PO SCH (11:24)
[2021-03-07] MEDS: FOLIC ACID 1 MG TABLET (FP) PO SCH (11:24)
[2021-03-07] MEDS ORDERED: DEXTROSE 5%-0.45% SALINE 1,000 ML IV SCH (14:15)
[2021-03-07] MEDS: DEXTROSE 5%-0.45% SALINE 1,000 ML IV SCH (14:37)
[2021-03-07] MEDS: KCL 10 MEQ IVPB 10 MEQ/100 ML INFUS.BAG IVPB SCH ×3 (14:37→17:56)
[2021-03-07] MEDS: AMINO ACIDS/PROTEIN HYDROLYS 30 ML LIQUID.PKT PO SCH (17:31)
[2021-03-07] MEDS: ATORVASTATIN CA 40 MG TABLET (FP) PO SCH (21:29)
[2021-03-07] MEDS: GABAPENTIN 100 MG CAPSULE PO SCH (21:29)
[2021-03-08] MEDS ORDERED: PT OWN MED DRAWER 7, Y5N ONE ×4 (08:24→17:28)
[2021-03-08] MEDS: LIPASE/PROTEASE/AMYLASE 36,000 UNIT CAPSULE PO SCH ×3 (08:38→17:29)
[2021-03-08] MEDS: AMINO ACIDS/PROTEIN HYDROLYS 30 ML LIQUID.PKT PO SCH ×2 (08:38→17:29)
[2021-03-08] MEDS: POTASSIUM CHLORIDE TABS 20 MEQ TABLET.ER (FP) PO SCH (09:35)
[2021-03-08] MEDS: FOLIC ACID 1 MG TABLET (FP) PO SCH (09:38)
[2021-03-08] MEDS: FERROUS SO4 325 MG TABLET (FP) PO SCH (09:38)
[2021-03-08] MEDS: metoPROLOL SUCCINATE 25 MG TAB.SR.24H (FP) PO SCH (09:38)
[2021-03-08] MEDS: amLODIPine BESYLATE 5 MG TABLET (FP) PO SCH (09:38)
[2021-03-08] MEDS: CYANOCOBALAMIN (VITAMIN B-12) 100 MCG TABLET PO SCH (09:38)
[2021-03-08] MEDS: ENOXAPARIN NA (PORCINE) 40 MG/0.4 ML DISP.SYRIN SQ SCH (09:39)
[2021-03-08] MEDS: MEGESTROL ACETATE 40 MG TABLET PO SCH (09:41)
[2021-03-08] MEDS ORDERED: VITAMIN B COMP W-C 1 EA TABLET (NEPHRO-VITE) PO SCH (10:00)
[2021-03-08] MEDS: THIAMINE HCL 100 MG TABLET (FP) PO SCH (10:45)
[2021-03-08 11:27] LABS: BASO % 0.4 % (0-2.0); EOS % 0.6 % (0-4.5); HEMOGLOBIN 9.8 GM/dL (10.7-15.3); MCH 36.4 pg (25.7-33.7); MCHC 33.8 g/dl (32.0-36.0); MEAN CELL VOLUME 107.8 fl (80-96); MEAN PLT VOLUME 10.4 fl (7.5-11.1); MONO % 7.6 % (3.8-10.2); NEUT % 66.4 % (42.8-82.8); PLATELET COUNT 130 10^3/uL (134-434); RBC 2.69 M/mm3 (3.60-5.2); RDW 16.1 % (11.6-15.6); WHITE BLOOD COUNT 6.5 K/mm3 (4.0-10.0)
[2021-03-08 11:58] LABS: ALBUMIN 2.5 g/dl (3.4-5.0); BLOOD UREA NITROGEN 15.2 mg/dL (7-18); CALCIUM 9.3 mg/dL (8.5-10.1)
[2021-03-08 12:01] LABS: CREATININE 0.7 mg/dL (0.55-1.3)
[2021-03-08 12:03] LABS: BILIRUBIN,TOTAL 0.3 mg/dL (0.2-1); TOT PROT 5.7 g/dl (6.4-8.2)
[2021-03-08] MEDS: DEXTROSE 5%-0.45% SALINE 1,000 ML IV SCH (13:40)
[2021-03-08] MEDS: GABAPENTIN 100 MG CAPSULE PO SCH (21:54)
[2021-03-08] MEDS: MIRTAZAPINE 15 MG TABLET (FP) PO SCH (21:54)
[2021-03-08] MEDS: ATORVASTATIN CA 40 MG TABLET (FP) PO SCH (21:55)
[2021-03-08] MEDS ORDERED: MIRTAZAPINE 15 MG TABLET (FP) PO SCH (22:00)
[2021-03-08] MEDS: ACETAMINOPHEN 325 MG TABLET (FP) PO PRN (22:09)
[2021-03-08] MEDS: VANCOMYCIN 250 MG/5 ML ORAL SOLUTION PO SCH (23:17)
[2021-03-09] MEDS: DEXTROSE 5%-0.45% SALINE 1,000 ML IV SCH ×2 (02:37→16:38)
[2021-03-09] MEDS: VANCOMYCIN 250 MG/5 ML ORAL SOLUTION PO SCH ×4 (05:17→17:06)
[2021-03-09 08:08] LABS: BASO % 0.4 % (0-2.0); HEMOGLOBIN 9.5 GM/dL (10.7-15.3); LYMPH % 45.5 % (8-40); MCH 36.7 pg (25.7-33.7); MCHC 32.6 g/dl (32.0-36.0); MEAN CELL VOLUME 112.3 fl (80-96); MEAN PLT VOLUME 10.4 fl (7.5-11.1); MONO % 7.6 % (3.8-10.2); NEUT % 45.5 % (42.8-82.8); PLATELET COUNT 119 10^3/uL (134-434); RBC 2.58 M/mm3 (3.60-5.2); RDW 15.9 % (11.6-15.6); WHITE BLOOD COUNT 5.1 K/mm3 (4.0-10.0)
[2021-03-09] MEDS: LIPASE/PROTEASE/AMYLASE 36,000 UNIT CAPSULE PO SCH ×3 (08:33→16:37)
[2021-03-09] MEDS: AMINO ACIDS/PROTEIN HYDROLYS 30 ML LIQUID.PKT PO SCH ×2 (08:33→16:41)
[2021-03-09] MEDS: ENOXAPARIN NA (PORCINE) 40 MG/0.4 ML DISP.SYRIN SQ SCH (09:14)
[2021-03-09] MEDS: MEGESTROL ACETATE 40 MG TABLET PO SCH (09:15)
[2021-03-09] MEDS: metoPROLOL SUCCINATE 25 MG TAB.SR.24H (FP) PO SCH (09:15)
[2021-03-09] MEDS: amLODIPine BESYLATE 5 MG TABLET (FP) PO SCH (09:15)
[2021-03-09] MEDS: PANTOPRAZOLE 40 MG TABLET PO SCH (09:15)
[2021-03-09] MEDS: FOLIC ACID 1 MG TABLET (FP) PO SCH (09:15)
[2021-03-09] MEDS: POTASSIUM CHLORIDE TABS 20 MEQ TABLET.ER (FP) PO SCH (09:15)
[2021-03-09] MEDS: CYANOCOBALAMIN (VITAMIN B-12) 100 MCG TABLET PO SCH (09:15)
[2021-03-09] MEDS: FERROUS SO4 325 MG TABLET (FP) PO SCH (09:15)
[2021-03-09] MEDS: THIAMINE HCL 100 MG TABLET (FP) PO SCH (09:15)
[2021-03-09 15:16] LABS: ANISOCYTOSIS 2+; MACROCYTOSIS 2+
[2021-03-09] MEDS: VITAMIN B COMPLEX W/C COMBO TABLET (FP) PO SCH (16:37)
[2021-03-09] MEDS: ATORVASTATIN CA 40 MG TABLET (FP) PO SCH (22:09)
[2021-03-09] MEDS: GABAPENTIN 100 MG CAPSULE PO SCH (22:09)
[2021-03-09] MEDS: MIRTAZAPINE 15 MG TABLET (FP) PO SCH (22:09)
[2021-03-10] MEDS: VANCOMYCIN 250 MG/5 ML ORAL SOLUTION PO SCH ×5 (00:27→23:14)
[2021-03-10] MEDS: DEXTROSE 5%-0.45% SALINE 1,000 ML IV SCH ×2 (05:09→18:25)
[2021-03-10] MEDS ORDERED: PT OWN MED DRAWER 7, Y5N ONE (09:04)
[2021-03-10] MEDS: AMINO ACIDS/PROTEIN HYDROLYS 30 ML LIQUID.PKT PO SCH ×3 (09:10→18:18)
[2021-03-10] MEDS: LIPASE/PROTEASE/AMYLASE 36,000 UNIT CAPSULE PO SCH ×4 (09:13→17:39)
[2021-03-10] MEDS: FOLIC ACID 1 MG TABLET (FP) PO SCH ×2 (09:14→10:18)
[2021-03-10] MEDS: FERROUS SO4 325 MG TABLET (FP) PO SCH ×2 (09:14→10:17)
[2021-03-10] MEDS: VITAMIN B COMPLEX W/C COMBO TABLET (FP) PO SCH ×2 (09:14→10:18)
[2021-03-10] MEDS: POTASSIUM CHLORIDE TABS 20 MEQ TABLET.ER (FP) PO SCH (09:15)
[2021-03-10] MEDS: ENOXAPARIN NA (PORCINE) 40 MG/0.4 ML DISP.SYRIN SQ SCH (09:15)
[2021-03-10] MEDS: CYANOCOBALAMIN (VITAMIN B-12) 100 MCG TABLET PO SCH ×2 (09:15→10:19)
[2021-03-10] MEDS: PANTOPRAZOLE 40 MG TABLET PO SCH ×2 (09:15→10:18)
[2021-03-10] MEDS: MEGESTROL ACETATE 40 MG TABLET PO SCH ×2 (09:16→10:18)
[2021-03-10] MEDS: amLODIPine BESYLATE 5 MG TABLET (FP) PO SCH ×2 (09:16→10:18)
[2021-03-10] MEDS: THIAMINE HCL 100 MG TABLET (FP) PO SCH ×2 (09:16→10:18)
[2021-03-10] MEDS: metoPROLOL SUCCINATE 25 MG TAB.SR.24H (FP) PO SCH ×2 (09:21→10:18)
[2021-03-10] MEDS ORDERED: LOPERAMIDE HCL 2 MG CAPSULE PO SCH (10:00)
[2021-03-10 18:31] LABS: BLOOD UREA NITROGEN 13.3 mg/dL (7-18)
[2021-03-10 18:34] LABS: BILIRUBIN,TOTAL 0.1 mg/dL (0.2-1); CREATININE 0.6 mg/dL (0.55-1.3); TOT PROT 5.3 g/dl (6.4-8.2)
[2021-03-10] MEDS: GABAPENTIN 100 MG CAPSULE PO SCH (21:19)
[2021-03-10] MEDS: ATORVASTATIN CA 40 MG TABLET (FP) PO SCH (21:19)
[2021-03-10] MEDS: MIRTAZAPINE 15 MG TABLET (FP) PO SCH (21:19)
[2021-03-11] MEDS: VANCOMYCIN 250 MG/5 ML ORAL SOLUTION PO SCH ×3 (05:08→17:09)
[2021-03-11 09:06] LABS: BASO % 0.4 % (0-2.0); EOS % 0.9 % (0-4.5); HEMATOCRIT 27.3 % (32.4-45.2); HEMOGLOBIN 9.2 GM/dL (10.7-15.3); LYMPH % 32.6 % (8-40); MCHC 33.5 g/dl (32.0-36.0); MEAN CELL VOLUME 107.3 fl (80-96); MEAN PLT VOLUME 10.1 fl (7.5-11.1); MONO % 8.9 % (3.8-10.2); NEUT % 57.2 % (42.8-82.8); PLATELET COUNT 195 10^3/uL (134-434); RBC 2.55 M/mm3 (3.60-5.2); RDW 15.5 % (11.6-15.6); WHITE BLOOD COUNT 5.8 K/mm3 (4.0-10.0)
[2021-03-11 09:24] LABS: ALBUMIN 2.2 g/dl (3.4-5.0); BLOOD UREA NITROGEN 12.7 mg/dL (7-18)
[2021-03-11 09:28] LABS: CREATININE 0.5 mg/dL (0.55-1.3)
[2021-03-11 09:30] LABS: BILIRUBIN,TOTAL 0.4 mg/dL (0.2-1); TOT PROT 5.8 g/dl (6.4-8.2)
[2021-03-11] MEDS: LIPASE/PROTEASE/AMYLASE 36,000 UNIT CAPSULE PO SCH ×3 (09:56→17:10)
[2021-03-11] MEDS: FOLIC ACID 1 MG TABLET (FP) PO SCH (09:56)
[2021-03-11] MEDS: VITAMIN B COMPLEX W/C COMBO TABLET (FP) PO SCH (09:56)
[2021-03-11] MEDS: FERROUS SO4 325 MG TABLET (FP) PO SCH (09:56)
[2021-03-11] MEDS: AMINO ACIDS/PROTEIN HYDROLYS 30 ML LIQUID.PKT PO SCH ×2 (09:56→17:09)
[2021-03-11] MEDS: THIAMINE HCL 100 MG TABLET (FP) PO SCH (09:56)
[2021-03-11] MEDS: MEGESTROL ACETATE 40 MG TABLET PO SCH (09:57)
[2021-03-11] MEDS: DEXTROSE 5%-0.45% SALINE 1,000 ML IV SCH (09:57)
[2021-03-11] MEDS: CYANOCOBALAMIN (VITAMIN B-12) 100 MCG TABLET PO SCH (09:57)
[2021-03-11] MEDS: POTASSIUM CHLORIDE TABS 20 MEQ TABLET.ER (FP) PO SCH (09:57)
[2021-03-11] MEDS: metoPROLOL SUCCINATE 25 MG TAB.SR.24H (FP) PO SCH (09:57)
[2021-03-11] MEDS: amLODIPine BESYLATE 5 MG TABLET (FP) PO SCH (09:57)
[2021-03-11] MEDS: ENOXAPARIN NA (PORCINE) 40 MG/0.4 ML DISP.SYRIN SQ SCH (09:57)
[2021-03-11] MEDS: PANTOPRAZOLE 40 MG TABLET PO SCH (09:57)
[2021-03-11 13:30] VITALS: BP 141/90; PULSE 78; TEMP 99
== END 2021-03-11 18:09 | disposition home health service (06) | DRG 371 ==
LOC: JER 14:21 → JERBED 17:52 → J4W 03-06 22:57 → J7W 03-07 11:48
PROVIDERS: ADMIT Internal Medicine; ATTEND Internal Medicine
DX: A04.72 Enterocolitis due to Clostridium difficile, not specified as recurrent (principal); E43 Unspecified severe protein-calorie malnutrition; Z68.1 Body mass index [BMI] 19.9 or less, adult; R64 Cachexia; K86.0 Alcohol-induced chronic pancreatitis; R62.7 Adult failure to thrive; I50.9 Heart failure, unspecified; I11.0 Hypertensive heart disease with heart failure; I25.10 Atherosclerotic heart disease of native coronary artery without angina pectoris; J44.9 Chronic obstructive pulmonary disease, unspecified; E78.5 Hyperlipidemia, unspecified; K21.9 Gastro-esophageal reflux disease without esophagitis; R13.10 Dysphagia, unspecified; G62.9 Polyneuropathy, unspecified; R53.1 Weakness; F10.20 Alcohol dependence, uncomplicated; E83.42 Hypomagnesemia; E87.6 Hypokalemia; G62.1 Alcoholic polyneuropathy; E16.2 Hypoglycemia, unspecified; F41.8 Other specified anxiety disorders; R19.7 Diarrhea, unspecified; D64.9 Anemia, unspecified; Z95.2 Presence of prosthetic heart valve; Z95.1 Presence of aortocoronary bypass graft
CPT/HCPCS: 36415; 71045-TC-FY; 74220-TC-FY; 80053; 82010; 82550; 82803; 82962; 83735; 84100; 84443; 84484; 85025; 87045; 87046; 87177; 87209; 87324; 87449; 93005; 93010; 99285-25; C9803; J8999; U0003; U0005

== ENCOUNTER 2021-04-29 15:36 | Inpatient (IN) | payer OTHER ==
[2021-04-29 15:53] VITALS: BMI 15.7
[2021-04-29] MEDS ORDERED: THIAMINE HCL 200 MG/2 ML VIAL IVPB ONE (17:03)
[2021-04-29] MEDS ORDERED: THIAMINE HCL 200 MG/2 ML VIAL ONE (17:44)
[2021-04-29 18:09] LABS: BASO % 1.3 % (0-2.0); EOS % 1.9 % (0-4.5); HEMATOCRIT 32.2 % (32.4-45.2); HEMOGLOBIN 10.8 GM/dL (10.7-15.3); LYMPH % 33.9 % (8-40); MCH 33.1 pg (25.7-33.7); MCHC 33.6 g/dl (32.0-36.0); MEAN CELL VOLUME 98.4 fl (80-96); MEAN PLT VOLUME 11.2 fl (7.5-11.1); MONO % 6.8 % (3.8-10.2); NEUT % 56.1 % (42.8-82.8); PLATELET COUNT 193 10^3/uL (134-434); RBC 3.28 M/mm3 (3.60-5.2); RDW 15.2 % (11.6-15.6); WHITE BLOOD COUNT 7.2 K/mm3 (4.0-10.0)
[2021-04-29 18:18] LABS: INR 1.02 (0.83-1.09); PROTHROMBIN TIME (PATIENT) 11.4 SEC (9.7-13.0)
[2021-04-29 18:21] LABS: ACTIVATED PTT 28.2 SECONDS (25.2-36.5)
[2021-04-29 18:28] LABS: CHLORIDE 110 mmol/L (98-107); SODIUM 141 mmol/L (136-145)
[2021-04-29 18:32] LABS: ALBUMIN 3.7 g/dl (3.4-5.0); CALCIUM 9.2 mg/dL (8.5-10.1)
[2021-04-29 18:33] LABS: ANION GAP 9 MMOL/L (8-16); BLOOD UREA NITROGEN 22.8 mg/dL (7-18); CO2 23 mmol/L (21-32); GLUCOSE,RANDOM 79 mg/dL (74-106)
[2021-04-29 18:35] LABS: SGPT/ALT 49 U/L (13-61)
[2021-04-29 18:36] LABS: CREATININE 1.1 mg/dL (0.55-1.3); SGOT/AST 140 U/L (15-37)
[2021-04-29 18:37] LABS: ALK PHOS 124 U/L (45-117); BILIRUBIN,TOTAL 0.2 mg/dL (0.2-1); TOT PROT 7.7 g/dl (6.4-8.2)
[2021-04-29 19:47] LABS: PH,URINE 7.5 (5.0-8.0); URINE APPEARANCE CLEAR; URINE BILIRUBIN NEGATIVE (NEGATIVE); URINE COLOR YELLOW; URINE GLUCOSE (UA) NEGATIVE (NEGATIVE); URINE KETONE NEGATIVE (NEGATIVE); URINE LEUK ESTERASE NEGATIVE (NEGATIVE); URINE NITRITE NEGATIVE (NEGATIVE); URINE PROTEIN NEGATIVE (NEGATIVE); URINE UROBILINOGEN 0.2 mg/dL (0.2-1.0)
[2021-04-29 20:37] LABS: METHADONE, UR NEGATIVE (NEGATIVE); OPIATES, URI NEGATIVE (NEGATIVE); PHENCYCLIDINE,URINE NEGATIVE (NEGATIVE); URINE BARBITURATES NEGATIVE (NEGATIVE)
[2021-04-29 20:38] LABS: COCAINE, UR NEGATIVE (NEGATIVE); URINE AMPHETAMINES NEGATIVE (NEGATIVE); URINE BENZODIAZEPINES POSITIVE (NEGATIVE)
[2021-04-29] MEDS ORDERED: DEXTROSE 5%-0.45% SALINE 1,000 ML IV SCH (22:00)
[2021-04-29] MEDS ORDERED: ATORVASTATIN CA 40 MG TABLET (FP) ONE (23:26)
[2021-04-29] MEDS: ATORVASTATIN CA 40 MG TABLET (FP) PO SCH (23:27)
[2021-04-29] MEDS: CYPROHEPTADINE HCL 4 MG TABLET PO SCH (23:52)
[2021-04-30] MEDS ORDERED: amLODIPine BESYLATE 5 MG TABLET (FP) PO ONE (05:44)
[2021-04-30] MEDS ORDERED: ALPRAZolam 0.25 MG TABLET PO ONE (05:45)
[2021-04-30] MEDS: CYPROHEPTADINE HCL 4 MG TABLET PO SCH ×3 (06:14→22:21)
[2021-04-30] MEDS ORDERED: ALPRAZolam 0.25 MG TABLET ONE (06:26)
[2021-04-30 06:37] LABS: BASO % 0.9 % (0-2.0); EOS % 2.4 % (0-4.5); HEMATOCRIT 30.3 % (32.4-45.2); HEMOGLOBIN 10.3 GM/dL (10.7-15.3); LYMPH % 26.9 % (8-40); MCH 33.4 pg (25.7-33.7); MCHC 34.1 g/dl (32.0-36.0); MONO % 7.7 % (3.8-10.2); NEUT % 62.1 % (42.8-82.8); PLATELET COUNT 172 10^3/uL (134-434); RBC 3.09 M/mm3 (3.60-5.2); RDW 15.2 % (11.6-15.6); WHITE BLOOD COUNT 7.9 K/mm3 (4.0-10.0)
[2021-04-30 06:59] LABS: ALBUMIN 3.5 g/dl (3.4-5.0)
[2021-04-30 07:03] LABS: BILIRUBIN,TOTAL 0.6 mg/dL (0.2-1); TOT PROT 7.5 g/dl (6.4-8.2)
[2021-04-30] MEDS: LIPASE/PROTEASE/AMYLASE 6,000 UNIT CAPSULE PO SCH ×3 (08:35→17:29)
[2021-04-30] MEDS ORDERED: PANTOPRAZOLE 40 MG TABLET ONE (09:16)
[2021-04-30] MEDS ORDERED: metoPROLOL SUCCINATE 25 MG TAB.SR.24H (FP) ONE (09:16)
[2021-04-30] MEDS ORDERED: FOLIC ACID 1 MG TABLET (FP) ONE (09:17)
[2021-04-30] MEDS ORDERED: GABAPENTIN 100 MG CAPSULE ONE (09:17)
[2021-04-30] MEDS ORDERED: SERTRALINE HCL 50 MG TABLET (FP) ONE (09:17)
[2021-04-30] MEDS ORDERED: ENOXAPARIN NA (PORCINE) 40 MG/0.4 ML DISP.SYRIN SQ ONE (09:17)
[2021-04-30] MEDS ORDERED: SERTRALINE HCL 50 MG TABLET (FP) PO SCH (10:00)
[2021-04-30] MEDS ORDERED: FUROSEMIDE 20 MG TABLET (FP) PO SCH (10:00)
[2021-04-30] MEDS ORDERED: POTASSIUM CHLORIDE TABS 20 MEQ TABLET.ER (FP) PO SCH (10:00)
[2021-04-30] MEDS ORDERED: metoPROLOL SUCCINATE 25 MG TAB.SR.24H (FP) PO SCH (10:00)
[2021-04-30] MEDS ORDERED: GABAPENTIN 100 MG CAPSULE PO SCH (10:00)
[2021-04-30] MEDS ORDERED: FOLIC ACID 1 MG TABLET (FP) PO SCH (10:00)
[2021-04-30] MEDS ORDERED: PANTOPRAZOLE 40 MG TABLET PO SCH (10:00)
[2021-04-30] MEDS ORDERED: ENOXAPARIN NA (PORCINE) 40 MG/0.4 ML DISP.SYRIN SQ SCH (10:00)
[2021-04-30] MEDS ORDERED: MEGESTROL ACETATE 40 MG TABLET PO SCH (10:00)
[2021-04-30] MEDS ORDERED: PT OWN MED DRAWER 7, Y5N ONE ×4 (14:45→19:47)
[2021-04-30] MEDS: LORazepam 1 MG TABLET PO PRN (19:55)
[2021-04-30] MEDS: ATORVASTATIN CA 40 MG TABLET (FP) PO SCH (22:17)
[2021-05-01] MEDS: CYPROHEPTADINE HCL 4 MG TABLET PO SCH ×3 (05:54→23:21)
[2021-05-01] MEDS: LORazepam 1 MG TABLET PO PRN ×3 (05:55→23:19)
[2021-05-01 08:07] LABS: BASO % 0.4 % (0-2.0); EOS % 2.2 % (0-4.5); HEMOGLOBIN 10.9 GM/dL (10.7-15.3); LYMPH % 30.6 % (8-40); MCH 33.2 pg (25.7-33.7); MEAN CELL VOLUME 100.6 fl (80-96); MEAN PLT VOLUME 11.1 fl (7.5-11.1); MONO % 6.7 % (3.8-10.2); NEUT % 60.1 % (42.8-82.8); PLATELET COUNT 181 10^3/uL (134-434); RBC 3.28 M/mm3 (3.60-5.2); RDW 14.7 % (11.6-15.6); WHITE BLOOD COUNT 6.9 K/mm3 (4.0-10.0)
[2021-05-01 08:37] LABS: ALBUMIN 3.4 g/dl (3.4-5.0); BLOOD UREA NITROGEN 17.8 mg/dL (7-18); CALCIUM 8.9 mg/dL (8.5-10.1)
[2021-05-01 08:41] LABS: BILIRUBIN,TOTAL 0.5 mg/dL (0.2-1); TOT PROT 7.6 g/dl (6.4-8.2)
[2021-05-01] MEDS: LIPASE/PROTEASE/AMYLASE 6,000 UNIT CAPSULE PO SCH ×3 (08:47→17:53)
[2021-05-01] MEDS ORDERED: PT OWN MED DRAWER 7, Y5N ONE ×3 (09:07→21:03)
[2021-05-01] MEDS: ENOXAPARIN NA (PORCINE) 40 MG/0.4 ML DISP.SYRIN SQ SCH (09:13)
[2021-05-01] MEDS: FOLIC ACID 1 MG TABLET (FP) PO SCH (09:13)
[2021-05-01] MEDS: GABAPENTIN 100 MG CAPSULE PO SCH (09:13)
[2021-05-01] MEDS: SERTRALINE HCL 50 MG TABLET (FP) PO SCH (09:13)
[2021-05-01] MEDS: metoPROLOL SUCCINATE 25 MG TAB.SR.24H (FP) PO SCH (09:13)
[2021-05-01] MEDS: PANTOPRAZOLE 40 MG TABLET PO SCH (09:13)
[2021-05-01] MEDS: FUROSEMIDE 20 MG TABLET (FP) PO SCH (09:13)
[2021-05-01] MEDS: MEGESTROL ACETATE 40 MG TABLET PO SCH (09:16)
[2021-05-01] MEDS: NICOTINE 21 MG/24 HOURS TOPICAL PATCH TD SCH (12:19)
[2021-05-01 12:25] LABS: N-TERMINAL BNP 1283.5 pg/ml (5-125)
[2021-05-01] MEDS: ACETAMINOPHEN 325 MG TABLET (FP) PO PRN ×2 (16:19→23:25)
[2021-05-01] MEDS: DEXTROSE 5%-0.45% SALINE 1,000 ML IV SCH (17:52)
[2021-05-01] MEDS: ATORVASTATIN CA 40 MG TABLET (FP) PO SCH (23:19)
[2021-05-02] MEDS: LORazepam 1 MG TABLET PO PRN ×3 (06:48→21:30)
[2021-05-02] MEDS: CYPROHEPTADINE HCL 4 MG TABLET PO SCH ×3 (06:51→21:31)
[2021-05-02] MEDS: LIPASE/PROTEASE/AMYLASE 6,000 UNIT CAPSULE PO SCH ×3 (08:06→17:18)
[2021-05-02] MEDS: GABAPENTIN 100 MG CAPSULE PO SCH (09:39)
[2021-05-02] MEDS: NICOTINE 21 MG/24 HOURS TOPICAL PATCH TD SCH (09:39)
[2021-05-02] MEDS: FUROSEMIDE 20 MG TABLET (FP) PO SCH (09:39)
[2021-05-02] MEDS: PANTOPRAZOLE 40 MG TABLET PO SCH (09:39)
[2021-05-02] MEDS: SERTRALINE HCL 50 MG TABLET (FP) PO SCH (09:39)
[2021-05-02] MEDS: DEXTROSE 5%-0.45% SALINE 1,000 ML IV SCH (09:39)
[2021-05-02] MEDS: FOLIC ACID 1 MG TABLET (FP) PO SCH (09:39)
[2021-05-02] MEDS: metoPROLOL SUCCINATE 25 MG TAB.SR.24H (FP) PO SCH (09:39)
[2021-05-02] MEDS ORDERED: PT OWN MED DRAWER 7, Y5N ONE (09:42)
[2021-05-02] MEDS: MEGESTROL ACETATE 40 MG TABLET PO SCH (09:43)
[2021-05-02] MEDS: ENOXAPARIN NA (PORCINE) 40 MG/0.4 ML DISP.SYRIN SQ SCH ×2 (10:46→10:53)
[2021-05-02] MEDS: ACETAMINOPHEN 325 MG TABLET (FP) PO PRN (17:18)
[2021-05-02] MEDS: LOSARTAN POTASSIUM 50 MG TABLET PO SCH ×2 (17:42→21:30)
[2021-05-02] MEDS: ATORVASTATIN CA 40 MG TABLET (FP) PO SCH (21:30)
[2021-05-03] MEDS: CYPROHEPTADINE HCL 4 MG TABLET PO SCH ×2 (05:32→16:50)
[2021-05-03] MEDS: LORazepam 1 MG TABLET PO PRN ×2 (05:32→13:38)
[2021-05-03] MEDS: DEXTROSE 5%-0.45% SALINE 1,000 ML IV SCH (05:33)
[2021-05-03] MEDS: FUROSEMIDE 20 MG TABLET (FP) PO SCH ×2 (08:38→13:25)
[2021-05-03] MEDS: metoPROLOL SUCCINATE 25 MG TAB.SR.24H (FP) PO SCH ×2 (08:38→13:25)
[2021-05-03] MEDS: LIPASE/PROTEASE/AMYLASE 6,000 UNIT CAPSULE PO SCH ×2 (08:47→13:38)
[2021-05-03] MEDS ORDERED: REGADENOSON 0.4 MG/5 ML PRE-FILLED SYRINGE IVPUSH ONE ×2 (10:00→10:30)
[2021-05-03] MEDS ORDERED: PT OWN MED DRAWER 7, Y5N ONE ×4 (13:30→17:23)
[2021-05-03] MEDS: FOLIC ACID 1 MG TABLET (FP) PO SCH (13:38)
[2021-05-03] MEDS: ENOXAPARIN NA (PORCINE) 40 MG/0.4 ML DISP.SYRIN SQ SCH (13:38)
[2021-05-03] MEDS: GABAPENTIN 100 MG CAPSULE PO SCH (13:39)
[2021-05-03] MEDS: MEGESTROL ACETATE 40 MG TABLET PO SCH (13:41)
[2021-05-03] MEDS: NICOTINE 21 MG/24 HOURS TOPICAL PATCH TD SCH (13:41)
[2021-05-03] MEDS: SERTRALINE HCL 50 MG TABLET (FP) PO SCH (13:42)
[2021-05-03] MEDS: PANTOPRAZOLE 40 MG TABLET PO SCH (13:42)
[2021-05-03 13:57] VITALS: BP 139/74; PULSE 101; TEMP 97.7
[2021-05-03 16:55] LABS: CALCIUM 9.1 mg/dL (8.5-10.1)
[2021-05-03 16:56] LABS: ALBUMIN 3.6 g/dl (3.4-5.0); BLOOD UREA NITROGEN 21.3 mg/dL (7-18)
[2021-05-03 17:00] LABS: BILIRUBIN,TOTAL 0.3 mg/dL (0.2-1); TOT PROT 7.5 g/dl (6.4-8.2)
[2021-05-04] MEDS ORDERED: LOSARTAN POTASSIUM 50 MG TABLET PO SCH (10:00)
== END 2021-05-03 18:37 | disposition home or self-care (01) | DRG 312 ==
LOC: JER 15:36 → JERBED 20:25 → OBSVTOIN 21:49 → J4W 04-30 09:40
PROVIDERS: ADMIT Internal Medicine; ATTEND Internal Medicine
DX: R55 Syncope and collapse (principal); E43 Unspecified severe protein-calorie malnutrition; F10.230 Alcohol dependence with withdrawal, uncomplicated; R64 Cachexia; K86.0 Alcohol-induced chronic pancreatitis; Z68.1 Body mass index [BMI] 19.9 or less, adult; I25.10 Atherosclerotic heart disease of native coronary artery without angina pectoris; Z95.1 Presence of aortocoronary bypass graft; I11.0 Hypertensive heart disease with heart failure; I50.9 Heart failure, unspecified; F32.A Depression, unspecified; G40.909 Epilepsy, unspecified, not intractable, without status epilepticus; E86.0 Dehydration; G62.9 Polyneuropathy, unspecified; Z95.2 Presence of prosthetic heart valve; R29.6 Repeated falls; T42.4X5A Adverse effect of benzodiazepines, initial encounter
CPT/HCPCS: 36415; 70450-TC; 71046-TC-FY; 72125-TC; 78452-TC; 80053; 80307; 81003; 82550; 82962; 83036; 83735; 83880; 84484; 85025; 85610; 85730; 87086; 93005; 93010; 93017; 93306-TC; 93880-TC; 99285-25; A9502; C9803; G0378; J2785; J8999; U0003; U0005

== ENCOUNTER 2021-05-12 15:28 | Emergency (ER) | payer OTHER ==
[2021-05-12 15:42] VITALS: TEMP 99.1; BMI 16.1
[2021-05-12] MEDS ORDERED: METOCLOPRAMIDE HCL INJECTION 10 MG/2 ML VIAL IVPB ONE (16:29)
[2021-05-12] MEDS ORDERED: ACETAMINOPHEN 325 MG TABLET (FP) PO ONE (16:29)
[2021-05-12] MEDS ORDERED: ACETAMINOPHEN 325 MG TABLET (FP) ONE (16:39)
[2021-05-12] MEDS ORDERED: METOCLOPRAMIDE HCL INJECTION 10 MG/2 ML VIAL ONE (16:39)
[2021-05-12 17:48] LABS: BASO % 0.5 % (0-2.0); EOS % 1.7 % (0-4.5); HEMOGLOBIN 10.6 GM/dL (10.7-15.3); LYMPH % 40.2 % (8-40); MCH 32.6 pg (25.7-33.7); MCHC 33.1 g/dl (32.0-36.0); MEAN CELL VOLUME 98.4 fl (80-96); MEAN PLT VOLUME 10.7 fl (7.5-11.1); MONO % 6.9 % (3.8-10.2); NEUT % 50.7 % (42.8-82.8); PLATELET COUNT 220 10^3/uL (134-434); RBC 3.25 M/mm3 (3.60-5.2); RDW 15.2 % (11.6-15.6); WHITE BLOOD COUNT 8.1 K/mm3 (4.0-10.0)
[2021-05-12 17:59] LABS: CHLORIDE 109 mmol/L (98-107); SODIUM 140 mmol/L (136-145)
[2021-05-12 18:01] LABS: CALCIUM 8.8 mg/dL (8.5-10.1)
[2021-05-12 18:02] LABS: ALBUMIN 3.8 g/dl (3.4-5.0); ANION GAP 6 MMOL/L (8-16); BLOOD UREA NITROGEN 16.9 mg/dL (7-18); CO2 25 mmol/L (21-32); GLUCOSE,RANDOM 83 mg/dL (74-106); MAGNESIUM 2.3 mg/dL (1.8-2.4)
[2021-05-12 18:05] LABS: SGOT/AST 40 U/L (15-37); SGPT/ALT 37 U/L (13-61)
[2021-05-12 18:06] LABS: BILIRUBIN,TOTAL 0.2 mg/dL (0.2-1)
[2021-05-12 18:07] LABS: ALK PHOS 94 U/L (45-117); TOT PROT 7.9 g/dl (6.4-8.2)
[2021-05-12 18:32] LABS: PH,URINE 7.5 (5.0-8.0); URINE APPEARANCE CLEAR; URINE BILIRUBIN NEGATIVE (NEGATIVE); URINE COLOR YELLOW; URINE GLUCOSE (UA) NEGATIVE (NEGATIVE); URINE KETONE NEGATIVE (NEGATIVE); URINE LEUK ESTERASE NEGATIVE (NEGATIVE); URINE NITRITE NEGATIVE (NEGATIVE); URINE PROTEIN NEGATIVE (NEGATIVE); URINE UROBILINOGEN 0.2 mg/dL (0.2-1.0)
[2021-05-12 18:33] VITALS: BP 150/99; PULSE 89
== END 2021-05-12 19:37 | disposition home or self-care (01) ==
LOC: JER 15:28
PROC: 3E033GC Introduction of Other Therapeutic Substance into Peripheral Vein, Percutaneous Approach (ICD-10-PCS; principal; 2021-05-12)
DX: R51.9 Headache, unspecified (principal); I10 Essential (primary) hypertension
CPT/HCPCS: 36415; 70450-TC; 70486-TC; 71046-TC-FY; 80053; 81003; 82550; 83735; 84484; 85025; 93005; 93010; 99285-25

== ENCOUNTER 2021-10-12 12:29 | Emergency (ER) | payer OTHER ==
[2021-10-12] MEDS ORDERED: SODIUM CHLORIDE 1,000 ML IV SCH (12:45)
[2021-10-12 13:50] VITALS: BP 122/78; PULSE 87; BMI 24.2
[2021-10-12 13:56] LABS: BASO % 0.7 % (0-2.0); HEMOGLOBIN 11.9 GM/dL (10.7-15.3); LYMPH % 39.9 % (8-40); MCH 34.1 pg (25.7-33.7); MCHC 33.9 g/dl (32.0-36.0); MEAN CELL VOLUME 100.5 fl (80-96); MONO % 6.4 % (3.8-10.2); PLATELET COUNT 234 10^3/uL (134-434); RBC 3.48 M/mm3 (3.60-5.2); RDW 17.1 % (11.6-15.6); VENOUS BASE EXCESS -3.8 mmol/L (-2-2); VENOUS O2 SATURATION 98.9 % (70-80); VENOUS PCO2 35.8 mmHg (38-52); VENOUS PH 7.379 (7.310-7.410); WHITE BLOOD COUNT 6.6 K/mm3 (4.0-10.0)
[2021-10-12 14:04] LABS: INR 1.29 (0.83-1.09); PROTHROMBIN TIME (PATIENT) 14.9 SEC (9.7-13.0)
[2021-10-12 14:06] LABS: ACTIVATED PTT 35.3 SECONDS (25.2-36.5)
[2021-10-12 14:18] LABS: BLOOD UREA NITROGEN 22.5 mg/dL (7-18)
[2021-10-12 14:19] LABS: ALBUMIN 3.6 g/dl (3.4-5.0)
[2021-10-12 14:23] LABS: BILIRUBIN,TOTAL 0.5 mg/dL (0.2-1); TOT PROT 7.4 g/dl (6.4-8.2)
[2021-10-12 14:31] LABS: CREATININE 0.8 mg/dL (0.55-1.3)
== END 2021-10-12 17:42 | disposition home or self-care (01) ==
LOC: JER 12:29
DX: F10.129 Alcohol abuse with intoxication, unspecified (principal); R41.0 Disorientation, unspecified
CPT/HCPCS: 36415; 70450-TC; 80053; 80061; 80307; 82140; 82803; 83036; 84484; 85025; 85610; 85730; 86850; 86900; 86901; 93005; 93010; 99285-25

== ENCOUNTER 2022-01-19 14:13 | Observation (INO) | payer OTHER ==
[2022-01-19] MEDS ORDERED: SODIUM CHLORIDE 0.9% 500 ML INFUS.BAG IV ONE (15:37)
[2022-01-19] MEDS ORDERED: THIAMINE HCL 100 MG TABLET (FP) PO ONE (15:37)
[2022-01-19] MEDS ORDERED: FOLIC ACID 1 MG TABLET (FP) PO ONE (15:38)
[2022-01-19] MEDS ORDERED: FOLIC ACID 1 MG TABLET (FP) ONE (15:47)
[2022-01-19] MEDS ORDERED: THIAMINE HCL 100 MG TABLET (FP) ONE (15:47)
[2022-01-19 16:01] LABS: BASO % 0.3 % (0-2.0); EOS % 1.7 % (0-4.5); HEMATOCRIT 33.1 % (32.4-45.2); HEMOGLOBIN 11.1 GM/dL (10.7-15.3); LYMPH % 28.2 % (8-40); MCHC 33.6 g/dl (32.0-36.0); MEAN CELL VOLUME 101.3 fl (80-96); MEAN PLT VOLUME 8.6 fl (7.5-11.1); MONO % 8.4 % (3.8-10.2); NEUT % 61.4 % (42.8-82.8); PLATELET COUNT 220 10^3/uL (134-434); RBC 3.27 M/mm3 (3.60-5.2); RDW 16.1 % (11.6-15.6); WHITE BLOOD COUNT 7.6 K/mm3 (4.0-10.0)
[2022-01-19 16:22] LABS: CHLORIDE 113 mmol/L (98-107); SODIUM 142 mmol/L (136-145)
[2022-01-19 16:25] LABS: CALCIUM 9.1 mg/dL (8.5-10.1)
[2022-01-19 16:26] LABS: ALBUMIN 3.6 g/dl (3.4-5.0); ANION GAP 11 MMOL/L (8-16); CO2 18 mmol/L (21-32); GLUCOSE,RANDOM 122 mg/dL (74-106); MAGNESIUM 1.9 mg/dL (1.8-2.4)
[2022-01-19 16:28] LABS: PHOSPHOROUS 3.3 mg/dL (2.5-4.9)
[2022-01-19 16:29] LABS: CREATININE 0.8 mg/dL (0.55-1.3); SGOT/AST 22 U/L (15-37); SGPT/ALT 13 U/L (13-61)
[2022-01-19 16:30] LABS: TOT PROT 7.1 g/dl (6.4-8.2)
[2022-01-19] MEDS ORDERED: POTASSIUM CHLORIDE TABS 20 MEQ TABLET.ER (FP) PO ONE (16:30)
[2022-01-19 16:31] LABS: ALK PHOS 100 U/L (45-117)
[2022-01-19] MEDS ORDERED: POTASSIUM CHLORIDE ORAL LIQUID 20 MEQ/15 ML ONE (16:49)
[2022-01-19] MEDS: DEXTROSE 5%-0.45% SALINE 1,000 ML IV SCH (22:30)
[2022-01-20] MEDS: CYPROHEPTADINE HCL 4 MG TABLET PO SCH ×4 (07:23→21:36)
[2022-01-20 07:30] LABS: BASO % 0.4 % (0-2.0); EOS % 1.7 % (0-4.5); HEMATOCRIT 31.4 % (32.4-45.2); HEMOGLOBIN 10.5 GM/dL (10.7-15.3); MCH 34.6 pg (25.7-33.7); MCHC 33.4 g/dl (32.0-36.0); MEAN CELL VOLUME 103.4 fl (80-96); MEAN PLT VOLUME 9.2 fl (7.5-11.1); MONO % 7.2 % (3.8-10.2); NEUT % 60.7 % (42.8-82.8); PLATELET COUNT 209 10^3/uL (134-434); RBC 3.04 M/mm3 (3.60-5.2); RDW 16.2 % (11.6-15.6); WHITE BLOOD COUNT 7.8 K/mm3 (4.0-10.0)
[2022-01-20 07:57] LABS: ALBUMIN 3.2 g/dl (3.4-5.0); CALCIUM 8.7 mg/dL (8.5-10.1)
[2022-01-20 07:58] LABS: BLOOD UREA NITROGEN 12.2 mg/dL (7-18)
[2022-01-20 08:00] LABS: CREATININE 0.9 mg/dL (0.55-1.3)
[2022-01-20 08:02] LABS: BILIRUBIN,TOTAL 0.5 mg/dL (0.2-1); TOT PROT 6.5 g/dl (6.4-8.2)
[2022-01-20] MEDS: LIPASE/PROTEASE/AMYLASE 36,000 UNIT CAPSULE PO SCH ×3 (08:29→18:53)
[2022-01-20] MEDS: HEPARIN NA (PORCINE) 5,000 UNITS/ML 1ML VIAL SQ SCH ×2 (09:54→21:35)
[2022-01-20] MEDS: PANTOPRAZOLE 40 MG TABLET PO SCH (09:54)
[2022-01-20] MEDS: LOSARTAN POTASSIUM 50 MG TABLET PO SCH (09:54)
[2022-01-20] MEDS: metoPROLOL SUCCINATE 25 MG TAB.SR.24H (FP) PO SCH (09:54)
[2022-01-20] MEDS: FOLIC ACID 1 MG TABLET (FP) PO SCH (09:54)
[2022-01-20] MEDS: FUROSEMIDE 20 MG TABLET (FP) PO SCH (09:54)
[2022-01-20] MEDS: SERTRALINE HCL 25 MG TABLET (FP) PO SCH (09:55)
[2022-01-20] MEDS ORDERED: MEGESTROL ACETATE 40 MG TABLET PO SCH (10:00)
[2022-01-20] MEDS: ATORVASTATIN CA 40 MG TABLET (FP) PO SCH (21:35)
[2022-01-20] MEDS: MIRTAZAPINE 15 MG TABLET (FP) PO SCH (21:37)
[2022-01-21] MEDS: CYPROHEPTADINE HCL 4 MG TABLET PO SCH ×3 (06:03→21:18)
[2022-01-21] MEDS: DEXTROSE 5%-0.45% SALINE 1,000 ML IV SCH (07:20)
[2022-01-21] MEDS: LIPASE/PROTEASE/AMYLASE 36,000 UNIT CAPSULE PO SCH ×3 (07:58→17:39)
[2022-01-21] MEDS: HEPARIN NA (PORCINE) 5,000 UNITS/ML 1ML VIAL SQ SCH ×2 (09:22→21:18)
[2022-01-21] MEDS: PANTOPRAZOLE 40 MG TABLET PO SCH (09:22)
[2022-01-21] MEDS: SERTRALINE HCL 25 MG TABLET (FP) PO SCH (09:22)
[2022-01-21] MEDS: LOSARTAN POTASSIUM 50 MG TABLET PO SCH (09:22)
[2022-01-21] MEDS: metoPROLOL SUCCINATE 25 MG TAB.SR.24H (FP) PO SCH (09:22)
[2022-01-21] MEDS: MEGESTROL ACETATE 20 MG TABLET PO SCH (09:23)
[2022-01-21] MEDS: FOLIC ACID 1 MG TABLET (FP) PO SCH (09:23)
[2022-01-21] MEDS: FUROSEMIDE 20 MG TABLET (FP) PO SCH (09:23)
[2022-01-21] MEDS ORDERED: GABAPENTIN 100 MG CAPSULE PO ONE (11:45)
[2022-01-21 12:52] VITALS: BMI 15.6
[2022-01-21] MEDS: MIRTAZAPINE 15 MG TABLET (FP) PO SCH (21:18)
[2022-01-21] MEDS: ATORVASTATIN CA 40 MG TABLET (FP) PO SCH (21:19)
[2022-01-22] MEDS: CYPROHEPTADINE HCL 4 MG TABLET PO SCH ×2 (06:28→13:30)
[2022-01-22] MEDS: DEXTROSE 5%-0.45% SALINE 1,000 ML IV SCH (06:29)
[2022-01-22] MEDS: FUROSEMIDE 20 MG TABLET (FP) PO SCH (09:21)
[2022-01-22] MEDS: metoPROLOL SUCCINATE 25 MG TAB.SR.24H (FP) PO SCH (09:21)
[2022-01-22] MEDS: FOLIC ACID 1 MG TABLET (FP) PO SCH (09:21)
[2022-01-22] MEDS: SERTRALINE HCL 25 MG TABLET (FP) PO SCH (09:21)
[2022-01-22] MEDS: PANTOPRAZOLE 40 MG TABLET PO SCH (09:21)
[2022-01-22] MEDS: LIPASE/PROTEASE/AMYLASE 36,000 UNIT CAPSULE PO SCH ×2 (09:21→11:43)
[2022-01-22] MEDS: LOSARTAN POTASSIUM 50 MG TABLET PO SCH (09:22)
[2022-01-22] MEDS: HEPARIN NA (PORCINE) 5,000 UNITS/ML 1ML VIAL SQ SCH (09:22)
[2022-01-22] MEDS: MEGESTROL ACETATE 20 MG TABLET PO SCH (09:26)
[2022-01-22 15:27] VITALS: BP 125/75; PULSE 77; RESP 20; TEMP 98.9
== END 2022-01-22 17:46 | disposition home or self-care (01) ==
LOC: JER 14:13 → UNDOADMOB 17:18 → INTOOBSV 17:18 → OBSVTOIN 17:18 → JERBED 17:18 → J4W 22:28 → JERBED 01-20 11:03
PROVIDERS: ADMIT Internal Medicine; ATTEND Internal Medicine
PROC: 3E023GC Introduction of Other Therapeutic Substance into Muscle, Percutaneous Approach (ICD-10-PCS; principal; 2022-01-20)
PROC: 3E0337Z Introduction of Electrolytic and Water Balance Substance into Peripheral Vein, Percutaneous Approach (ICD-10-PCS; 2022-01-20)
DX: I25.10 Atherosclerotic heart disease of native coronary artery without angina pectoris (principal); I11.0 Hypertensive heart disease with heart failure; E78.5 Hyperlipidemia, unspecified; K21.9 Gastro-esophageal reflux disease without esophagitis; R55 Syncope and collapse; K85.90 Acute pancreatitis without necrosis or infection, unspecified; F19.20 Other psychoactive substance dependence, uncomplicated; D64.9 Anemia, unspecified; F41.8 Other specified anxiety disorders; F10.99 Alcohol use, unspecified with unspecified alcohol-induced disorder; Z95.1 Presence of aortocoronary bypass graft; F17.210 Nicotine dependence, cigarettes, uncomplicated
CPT/HCPCS: 36415; 70450-TC; 71045-TC-FY; 80053; 80307; 82962; 83735; 84100; 84484; 85025; 93005; 93010; 93306-TC; 93880-TC; 96360; 96372; 97116-GP; 97161-GP; 99285-25; C9803-CS; G0378; J1644; J8999; U0003; U0005

== ENCOUNTER 2022-08-23 04:42 | Day surgery (SDC) | payer OTHER ==
[2022-08-19 15:03] VITALS: BMI 16.8
[2022-08-23 11:18] VITALS: TEMP 97.3
[2022-08-23 13:44] VITALS: BP 139/88; PULSE 93; RESP 17
== END 2022-08-23 11:55 | disposition home or self-care (01) ==
LOC: JASU-ENDO 04:42
PROVIDERS: ATTEND Student in an Organized Health Care Education/Training Program
PROC: 0DB78ZX Excision of Stomach, Pylorus, Via Natural or Artificial Opening Endoscopic, Diagnostic (ICD-10-PCS; 2022-08-23)
PROC: 0DB68ZX Excision of Stomach, Via Natural or Artificial Opening Endoscopic, Diagnostic (ICD-10-PCS; 2022-08-23)
PROC: 0DB98ZX Excision of Duodenum, Via Natural or Artificial Opening Endoscopic, Diagnostic (ICD-10-PCS; principal; 2022-08-23 09:30)
DX: K20.90 Esophagitis, unspecified without bleeding (principal); K29.80 Duodenitis without bleeding; K29.00 Acute gastritis without bleeding
CPT/HCPCS: 88305-TC; 88342-TC

== ENCOUNTER 2022-10-12 14:23 | Inpatient (IN) | payer OTHER ==
[2022-10-12] MEDS ORDERED: THIAMINE HCL 200 MG/2 ML VIAL IVPB ONE (15:24)
[2022-10-12] MEDS ORDERED: FOLIC ACID 1 MG TABLET (FP) PO ONE (15:25)
[2022-10-12] MEDS ORDERED: ACETAMINOPHEN 1000 MG/100 ML BAG IVPB ONE (15:25)
[2022-10-12] MEDS ORDERED: LACTATED RINGERS SOLUTION 1000 ML INFUS.BAG IV ONE (15:25)
[2022-10-12] MEDS ORDERED: THIAMINE HCL 200 MG/2 ML VIAL ONE (15:36)
[2022-10-12] MEDS ORDERED: FOLIC ACID 1 MG TABLET (FP) ONE (15:36)
[2022-10-12] MEDS ORDERED: ACETAMINOPHEN INJECTION 100 ML IVPB ONE (15:36)
[2022-10-12 16:38] LABS: EOS % 0.2 % (0-4.5); HEMATOCRIT 33.6 % (32.4-45.2); HEMOGLOBIN 11.5 GM/dL (10.7-15.3); LYMPH % 17.7 % (8-40); MCH 34.9 pg (25.7-33.7); MCHC 34.2 g/dl (32.0-36.0); MEAN CELL VOLUME 102.1 fl (80-96); MEAN PLT VOLUME 10.9 fl (7.5-11.1); MONO % 4.1 % (3.8-10.2); PLATELET COUNT 132 10^3/uL (134-434); RBC 3.29 M/mm3 (3.60-5.2); RDW 14.5 % (11.6-15.6); WHITE BLOOD COUNT 5.9 K/mm3 (4.0-10.0)
[2022-10-12 16:41] LABS: POTASSIUM 3.6 mmol/L (3.5-5.1)
[2022-10-12 16:44] LABS: BLOOD UREA NITROGEN 29.2 mg/dL (7-18); CALCIUM 10.7 mg/dL (8.5-10.1)
[2022-10-12 16:45] LABS: ALBUMIN 2.9 g/dl (3.4-5.0); MAGNESIUM 1.8 mg/dL (1.8-2.4)
[2022-10-12 16:46] LABS: VENOUS BASE EXCESS -4.1 mmol/L (-2-2); VENOUS O2 SATURATION 67.1 % (70-80); VENOUS PCO2 29.1 mmHg (38-52); VENOUS PH 7.432 (7.310-7.410)
[2022-10-12 16:47] LABS: CREATININE 1.2 mg/dL (0.55-1.3); INR 1.01 (0.83-1.09); PROTHROMBIN TIME (PATIENT) 11.7 SEC (9.7-13.0)
[2022-10-12 16:49] LABS: BILIRUBIN,TOTAL 0.7 mg/dL (0.2-1); TOT PROT 7.9 g/dl (6.4-8.2)
[2022-10-12 18:22] LABS: BASO % 0.5 % (0-2.0); HEMATOCRIT 24.7 % (32.4-45.2); HEMOGLOBIN 8.3 GM/dL (10.7-15.3); LYMPH % 11.7 % (8-40); MCH 34.5 pg (25.7-33.7); MCHC 33.7 g/dl (32.0-36.0); MEAN CELL VOLUME 102.3 fl (80-96); MONO % 9.8 % (3.8-10.2); RBC 2.41 M/mm3 (3.60-5.2); RDW 14.4 % (11.6-15.6); WHITE BLOOD COUNT 6.8 K/mm3 (4.0-10.0)
[2022-10-12 18:40] LABS: POTASSIUM 3.6 mmol/L (3.5-5.1)
[2022-10-12 18:42] LABS: BLOOD UREA NITROGEN 27.6 mg/dL (7-18); CALCIUM 9.2 mg/dL (8.5-10.1)
[2022-10-12 18:44] LABS: PLATELET COUNT 92 10^3/uL (134-434)
[2022-10-12 18:44] LABS: EPI CELLS 18 /uL (0-25.1); HYALINE CASTS 1 /uL (0-3.1); URINE APPEARANCE CLEAR; URINE BACTERIA >9,000 /uL (0-1359); URINE BILIRUBIN NEGATIVE (NEGATIVE); URINE COLOR DK YELLOW; URINE GLUCOSE (UA) NEGATIVE (NEGATIVE); URINE KETONE 1+ (NEGATIVE); URINE LEUK ESTERASE NEGATIVE (NEGATIVE); URINE NITRITE POSITIVE (NEGATIVE); URINE PROTEIN 1+ (NEGATIVE); URINE RBC 15 /uL (0-23.9); URINE WBC 41 /uL (0-25.8)
[2022-10-12] MEDS ORDERED: CEFTRIAXONE 1,000 MG in DEXTROSE 5%-WATER - 50 ML IVPB ONE (18:52)
[2022-10-12] MEDS ORDERED: CEFTRIAXONE 1 GM/50 ML BAG ONE (19:35)
[2022-10-12] MEDS ORDERED: ONDANSETRON 4 MG/2 ML VIAL IVPUSH ONE (20:17)
[2022-10-12] MEDS ORDERED: ONDANSETRON 4 MG/2 ML VIAL ONE (20:18)
[2022-10-13] MEDS: DEXTROSE 5%-0.45% SALINE 1,000 ML IV SCH ×2 (00:18→19:26)
[2022-10-13] MEDS: CEFTRIAXONE 1 GM in DEXTROSE 5%-WATER - 50 ML IVPB SCH (09:39)
[2022-10-13] MEDS: metoPROLOL SUCCINATE 25 MG TAB.SR.24H (FP) PO SCH (09:39)
[2022-10-13] MEDS: HEPARIN NA (PORCINE) 5,000 UNITS/ML 1ML VIAL SQ SCH ×2 (09:40→21:10)
[2022-10-13] MEDS: PANTOPRAZOLE 40 MG TABLET PO SCH (09:40)
[2022-10-13] MEDS: LOSARTAN POTASSIUM 50 MG TABLET PO SCH (09:40)
[2022-10-13] MEDS ORDERED: amLODIPine BESYLATE 10 MG TABLET (FP) PO SCH (10:00)
[2022-10-13 10:03] LABS: BASO % 0.5 % (0-2.0); EOS % 0.8 % (0-4.5); HEMATOCRIT 27.6 % (32.4-45.2); HEMOGLOBIN 9.6 GM/dL (10.7-15.3); LYMPH % 25.9 % (8-40); MCH 35.5 pg (25.7-33.7); MCHC 34.9 g/dl (32.0-36.0); MEAN CELL VOLUME 101.8 fl (80-96); MEAN PLT VOLUME 11.7 fl (7.5-11.1); MONO % 8.2 % (3.8-10.2); NEUT % 64.6 % (42.8-82.8); PLATELET COUNT 102 10^3/uL (134-434); RBC 2.71 M/mm3 (3.60-5.2); RDW 14.1 % (11.6-15.6); WHITE BLOOD COUNT 6.6 K/mm3 (4.0-10.0)
[2022-10-13] MEDS: FENOFIBRIC ACID 45 MG CAP PO SCH (10:27)
[2022-10-13 11:01] LABS: POTASSIUM 3.4 mmol/L (3.5-5.1)
[2022-10-13 11:05] LABS: BLOOD UREA NITROGEN 23.8 mg/dL (7-18); CALCIUM 9.3 mg/dL (8.5-10.1)
[2022-10-13 11:07] LABS: CREATININE 1.1 mg/dL (0.55-1.3)
[2022-10-13 11:09] LABS: BILIRUBIN,TOTAL 0.3 mg/dL (0.2-1)
[2022-10-13 11:20] LABS: ALBUMIN 2.3 g/dl (3.4-5.0)
[2022-10-13] MEDS: LIPASE/PROTEASE/AMYLASE 36,000 UNIT CAPSULE PO SCH ×3 (11:44→17:16)
[2022-10-13 14:52] VITALS: BMI 16.1
[2022-10-13] MEDS: ATORVASTATIN CA 40 MG TABLET (FP) PO SCH (21:15)
[2022-10-14] MEDS: DEXTROSE 5%-0.45% SALINE 1,000 ML IV SCH ×2 (06:22→18:49)
[2022-10-14 06:46] LABS: BASO % 0.4 % (0-2.0); EOS % 1.1 % (0-4.5); HEMATOCRIT 22.4 % (32.4-45.2); HEMOGLOBIN 7.9 GM/dL (10.7-15.3); LYMPH % 23.6 % (8-40); MCH 35.4 pg (25.7-33.7); MCHC 35.2 g/dl (32.0-36.0); MEAN CELL VOLUME 100.5 fl (80-96); MEAN PLT VOLUME 11.2 fl (7.5-11.1); MONO % 9.3 % (3.8-10.2); NEUT % 65.6 % (42.8-82.8); PLATELET COUNT 92 10^3/uL (134-434); RBC 2.23 M/mm3 (3.60-5.2); RDW 13.6 % (11.6-15.6); WHITE BLOOD COUNT 6.5 K/mm3 (4.0-10.0)
[2022-10-14 07:02] LABS: CALCIUM 8.9 mg/dL (8.5-10.1)
[2022-10-14 07:03] LABS: ALBUMIN 2.1 g/dl (3.4-5.0); BLOOD UREA NITROGEN 20.3 mg/dL (7-18)
[2022-10-14 07:07] LABS: BILIRUBIN,TOTAL 0.3 mg/dL (0.2-1); TOT PROT 5.5 g/dl (6.4-8.2)
[2022-10-14] MEDS: CEFTRIAXONE 1 GM in DEXTROSE 5%-WATER - 50 ML IVPB SCH (10:20)
[2022-10-14] MEDS: LIPASE/PROTEASE/AMYLASE 36,000 UNIT CAPSULE PO SCH ×3 (10:20→18:47)
[2022-10-14] MEDS: HEPARIN NA (PORCINE) 5,000 UNITS/ML 1ML VIAL SQ SCH ×2 (10:21→21:23)
[2022-10-14] MEDS: PANTOPRAZOLE 40 MG TABLET PO SCH (10:22)
[2022-10-14] MEDS: LOSARTAN POTASSIUM 50 MG TABLET PO SCH (10:22)
[2022-10-14] MEDS: metoPROLOL SUCCINATE 25 MG TAB.SR.24H (FP) PO SCH (10:22)
[2022-10-14] MEDS: FENOFIBRIC ACID 45 MG CAP PO SCH (11:14)
[2022-10-14] MEDS: ACETAMINOPHEN 325 MG TABLET (FP) PO PRN (12:59)
[2022-10-14] MEDS: ATORVASTATIN CA 40 MG TABLET (FP) PO SCH (21:23)
[2022-10-14] MEDS ORDERED: POTASSIUM CHLORIDE ORAL LIQUID 20 MEQ/15 ML PO ONE (23:45)
[2022-10-15] MEDS: DEXTROSE 5%-0.45% SALINE 1,000 ML IV SCH (01:53)
[2022-10-15] MEDS ORDERED: POTASSIUM CHLORIDE ORAL LIQUID 20 MEQ/15 ML PO ONE (02:00)
[2022-10-15 07:23] LABS: BASO % 0.2 % (0-2.0); HEMATOCRIT 21.8 % (32.4-45.2); HEMOGLOBIN 7.7 GM/dL (10.7-15.3); LYMPH % 14.9 % (8-40); MCH 35.7 pg (25.7-33.7); MCHC 35.1 g/dl (32.0-36.0); MEAN CELL VOLUME 101.5 fl (80-96); MEAN PLT VOLUME 11.4 fl (7.5-11.1); MONO % 8.4 % (3.8-10.2); NEUT % 75.5 % (42.8-82.8); PLATELET COUNT 111 10^3/uL (134-434); RBC 2.15 M/mm3 (3.60-5.2); RDW 14.1 % (11.6-15.6); WHITE BLOOD COUNT 6.6 K/mm3 (4.0-10.0)
[2022-10-15 07:39] LABS: POTASSIUM 3.4 mmol/L (3.5-5.1)
[2022-10-15 07:41] LABS: ALBUMIN 2.2 g/dl (3.4-5.0); BLOOD UREA NITROGEN 14.5 mg/dL (7-18); CALCIUM 8.8 mg/dL (8.5-10.1)
[2022-10-15 07:44] LABS: CREATININE 0.8 mg/dL (0.55-1.3)
[2022-10-15 07:46] LABS: BILIRUBIN,TOTAL 0.2 mg/dL (0.2-1); TOT PROT 5.4 g/dl (6.4-8.2)
[2022-10-15] MEDS: HEPARIN NA (PORCINE) 5,000 UNITS/ML 1ML VIAL SQ SCH ×2 (10:00→21:27)
[2022-10-15] MEDS: PANTOPRAZOLE 40 MG TABLET PO SCH (10:00)
[2022-10-15] MEDS: metoPROLOL SUCCINATE 25 MG TAB.SR.24H (FP) PO SCH (10:00)
[2022-10-15] MEDS: LOSARTAN POTASSIUM 50 MG TABLET PO SCH (10:00)
[2022-10-15] MEDS: LIPASE/PROTEASE/AMYLASE 36,000 UNIT CAPSULE PO SCH ×3 (10:01→17:48)
[2022-10-15] MEDS: FENOFIBRIC ACID 45 MG CAP PO SCH (10:01)
[2022-10-15] MEDS: CEFTRIAXONE 1 GM in DEXTROSE 5%-WATER - 50 ML IVPB SCH (10:01)
[2022-10-15] MEDS ORDERED: POTASSIUM CHLORIDE TABS 20 MEQ TABLET.ER (FP) PO ONE (11:25)
[2022-10-15] MEDS: ATORVASTATIN CA 40 MG TABLET (FP) PO SCH (21:27)
[2022-10-16] MEDS: DEXTROSE 5%-0.45% SALINE 1,000 ML IV SCH ×2 (09:51→15:15)
[2022-10-16] MEDS: PANTOPRAZOLE 40 MG TABLET PO SCH (09:54)
[2022-10-16] MEDS: CEFTRIAXONE 1 GM in DEXTROSE 5%-WATER - 50 ML IVPB SCH (09:54)
[2022-10-16] MEDS: LOSARTAN POTASSIUM 50 MG TABLET PO SCH (09:54)
[2022-10-16] MEDS: metoPROLOL SUCCINATE 25 MG TAB.SR.24H (FP) PO SCH (09:54)
[2022-10-16] MEDS: LIPASE/PROTEASE/AMYLASE 36,000 UNIT CAPSULE PO SCH ×3 (09:55→17:49)
[2022-10-16] MEDS: HEPARIN NA (PORCINE) 5,000 UNITS/ML 1ML VIAL SQ SCH ×2 (09:56→21:12)
[2022-10-16] MEDS: FENOFIBRIC ACID 45 MG CAP PO SCH (09:56)
[2022-10-16 10:35] LABS: BASO % 0.6 % (0-2.0); EOS % 0.9 % (0-4.5); HEMATOCRIT 28.2 % (32.4-45.2); HEMOGLOBIN 9.7 GM/dL (10.7-15.3); LYMPH % 25.4 % (8-40); MCH 33.2 pg (25.7-33.7); MCHC 34.2 g/dl (32.0-36.0); MEAN PLT VOLUME 10.3 fl (7.5-11.1); MONO % 9.4 % (3.8-10.2); NEUT % 63.7 % (42.8-82.8); PLATELET COUNT 132 10^3/uL (134-434); RBC 2.91 M/mm3 (3.60-5.2); WHITE BLOOD COUNT 6.1 K/mm3 (4.0-10.0)
[2022-10-16 11:11] LABS: POTASSIUM 4.2 mmol/L (3.5-5.1)
[2022-10-16 11:14] LABS: ALBUMIN 2.2 g/dl (3.4-5.0); BLOOD UREA NITROGEN 9.2 mg/dL (7-18)
[2022-10-16 11:17] LABS: CREATININE 0.9 mg/dL (0.55-1.3)
[2022-10-16 11:18] LABS: BILIRUBIN,TOTAL 0.2 mg/dL (0.2-1); TOT PROT 5.8 g/dl (6.4-8.2)
[2022-10-16] MEDS: ATORVASTATIN CA 40 MG TABLET (FP) PO SCH (21:13)
[2022-10-17] MEDS: DEXTROSE 5%-0.45% SALINE 1,000 ML IV SCH ×2 (04:50→17:35)
[2022-10-17] MEDS: metoPROLOL SUCCINATE 25 MG TAB.SR.24H (FP) PO SCH (09:39)
[2022-10-17] MEDS: LIPASE/PROTEASE/AMYLASE 36,000 UNIT CAPSULE PO SCH ×3 (09:39→17:35)
[2022-10-17] MEDS: LOSARTAN POTASSIUM 50 MG TABLET PO SCH (09:40)
[2022-10-17] MEDS: HEPARIN NA (PORCINE) 5,000 UNITS/ML 1ML VIAL SQ SCH ×2 (09:40→21:30)
[2022-10-17] MEDS: FENOFIBRIC ACID 45 MG CAP PO SCH (09:40)
[2022-10-17] MEDS: PANTOPRAZOLE 40 MG TABLET PO SCH (09:40)
[2022-10-17] MEDS: CEFTRIAXONE 1 GM in DEXTROSE 5%-WATER - 50 ML IVPB SCH (09:42)
[2022-10-17 09:53] LABS: HEMATOCRIT 24.9 % (32.4-45.2); HEMOGLOBIN 8.8 GM/dL (10.7-15.3); MCH 33.8 pg (25.7-33.7); MCHC 35.3 g/dl (32.0-36.0); MEAN CELL VOLUME 95.7 fl (80-96); MEAN PLT VOLUME 10.6 fl (7.5-11.1); PLATELET COUNT 167 10^3/uL (134-434); RBC 2.61 M/mm3 (3.60-5.2); RDW 19.2 % (11.6-15.6); WHITE BLOOD COUNT 5.5 K/mm3 (4.0-10.0)
[2022-10-17 10:20] LABS: POTASSIUM 3.7 mmol/L (3.5-5.1)
[2022-10-17 10:21] LABS: CALCIUM 8.5 mg/dL (8.5-10.1)
[2022-10-17 10:22] LABS: BLOOD UREA NITROGEN 9.6 mg/dL (7-18)
[2022-10-17 10:25] LABS: CREATININE 0.9 mg/dL (0.55-1.3)
[2022-10-17] MEDS: ATORVASTATIN CA 40 MG TABLET (FP) PO SCH (21:30)
[2022-10-18 07:33] LABS: BASO % 0.5 % (0-2.0); EOS % 1.6 % (0-4.5); HEMATOCRIT 24.9 % (32.4-45.2); HEMOGLOBIN 8.8 GM/dL (10.7-15.3); LYMPH % 21.8 % (8-40); MCH 33.8 pg (25.7-33.7); MCHC 35.1 g/dl (32.0-36.0); MEAN CELL VOLUME 96.4 fl (80-96); MONO % 17.2 % (3.8-10.2); NEUT % 58.9 % (42.8-82.8); PLATELET COUNT 191 10^3/uL (134-434); RBC 2.59 M/mm3 (3.60-5.2); RDW 18.7 % (11.6-15.6); WHITE BLOOD COUNT 6.6 K/mm3 (4.0-10.0)
[2022-10-18 07:58] LABS: POTASSIUM 3.7 mmol/L (3.5-5.1)
[2022-10-18 08:05] LABS: ALBUMIN 1.8 g/dl (3.4-5.0); BLOOD UREA NITROGEN 10.3 mg/dL (7-18); CALCIUM 8.5 mg/dL (8.5-10.1)
[2022-10-18 08:08] LABS: CREATININE 0.7 mg/dL (0.55-1.3)
[2022-10-18 08:09] LABS: BILIRUBIN,TOTAL 0.3 mg/dL (0.2-1); TOT PROT 5.1 g/dl (6.4-8.2)
[2022-10-18] MEDS: CEFTRIAXONE 1 GM in DEXTROSE 5%-WATER - 50 ML IVPB SCH (10:24)
[2022-10-18] MEDS: FENOFIBRIC ACID 45 MG CAP PO SCH (10:25)
[2022-10-18] MEDS: LIPASE/PROTEASE/AMYLASE 36,000 UNIT CAPSULE PO SCH ×3 (10:25→16:49)
[2022-10-18] MEDS: PANTOPRAZOLE 40 MG TABLET PO SCH (10:26)
[2022-10-18] MEDS: metoPROLOL SUCCINATE 25 MG TAB.SR.24H (FP) PO SCH (10:26)
[2022-10-18] MEDS: HEPARIN NA (PORCINE) 5,000 UNITS/ML 1ML VIAL SQ SCH ×2 (10:26→22:00)
[2022-10-18] MEDS: LOSARTAN POTASSIUM 50 MG TABLET PO SCH (10:26)
[2022-10-18] MEDS: DEXTROSE 5%-0.45% SALINE 1,000 ML IV SCH ×2 (16:29)
[2022-10-18] MEDS: AMOX TR/POT CLAV 500MG/125MG TABLETS (FP) PO SCH (16:48)
[2022-10-18] MEDS: ACETAMINOPHEN 325 MG TABLET (FP) PO PRN (22:00)
[2022-10-18] MEDS: ATORVASTATIN CA 40 MG TABLET (FP) PO SCH (22:00)
[2022-10-19] MEDS: DEXTROSE 5%-0.45% SALINE 1,000 ML IV SCH ×2 (02:04→16:02)
[2022-10-19] MEDS: LIPASE/PROTEASE/AMYLASE 36,000 UNIT CAPSULE PO SCH ×3 (08:08→17:18)
[2022-10-19] MEDS: AMOX TR/POT CLAV 500MG/125MG TABLETS (FP) PO SCH ×2 (08:14→17:18)
[2022-10-19] MEDS: metoPROLOL SUCCINATE 25 MG TAB.SR.24H (FP) PO SCH (09:25)
[2022-10-19] MEDS: PANTOPRAZOLE 40 MG TABLET PO SCH (09:25)
[2022-10-19] MEDS: LOSARTAN POTASSIUM 50 MG TABLET PO SCH (09:25)
[2022-10-19] MEDS: HEPARIN NA (PORCINE) 5,000 UNITS/ML 1ML VIAL SQ SCH ×2 (09:25→21:46)
[2022-10-19] MEDS: FENOFIBRIC ACID 45 MG CAP PO SCH (09:25)
[2022-10-19] MEDS: ATORVASTATIN CA 40 MG TABLET (FP) PO SCH (21:46)
[2022-10-20] MEDS: DEXTROSE 5%-0.45% SALINE 1,000 ML IV SCH ×2 (05:08→16:55)
[2022-10-20] MEDS: AMOX TR/POT CLAV 500MG/125MG TABLETS (FP) PO SCH ×2 (09:34→16:54)
[2022-10-20] MEDS: metoPROLOL SUCCINATE 25 MG TAB.SR.24H (FP) PO SCH (09:34)
[2022-10-20] MEDS: LIPASE/PROTEASE/AMYLASE 36,000 UNIT CAPSULE PO SCH ×3 (09:35→16:54)
[2022-10-20] MEDS: LOSARTAN POTASSIUM 50 MG TABLET PO SCH (09:35)
[2022-10-20] MEDS: PANTOPRAZOLE 40 MG TABLET PO SCH (09:35)
[2022-10-20] MEDS: FENOFIBRIC ACID 45 MG CAP PO SCH (12:21)
[2022-10-20] MEDS: ATORVASTATIN CA 40 MG TABLET (FP) PO SCH (22:26)
[2022-10-21] MEDS: DEXTROSE 5%-0.45% SALINE 1,000 ML IV SCH (05:42)
[2022-10-21] MEDS: ACETAMINOPHEN 325 MG TABLET (FP) PO PRN (07:58)
[2022-10-21] MEDS: LIPASE/PROTEASE/AMYLASE 36,000 UNIT CAPSULE PO SCH ×3 (08:04→17:22)
[2022-10-21] MEDS: AMOX TR/POT CLAV 500MG/125MG TABLETS (FP) PO SCH (08:05)
[2022-10-21] MEDS: metoPROLOL SUCCINATE 25 MG TAB.SR.24H (FP) PO SCH (09:52)
[2022-10-21] MEDS: LOSARTAN POTASSIUM 50 MG TABLET PO SCH (09:52)
[2022-10-21] MEDS: FENOFIBRIC ACID 45 MG CAP PO SCH (09:52)
[2022-10-21] MEDS: PANTOPRAZOLE 40 MG TABLET PO SCH (09:52)
[2022-10-21] MEDS ORDERED: DEXTROSE 5%-0.45% SALINE 1,000 ML IV SCH (12:11)
[2022-10-21] MEDS: ATORVASTATIN CA 40 MG TABLET (FP) PO SCH (21:18)
[2022-10-22 07:19] LABS: BASO % 0.6 % (0-2.0); EOS % 1.2 % (0-4.5); HEMATOCRIT 28.2 % (32.4-45.2); HEMOGLOBIN 9.8 GM/dL (10.7-15.3); LYMPH % 21.5 % (8-40); MCH 33.2 pg (25.7-33.7); MCHC 34.6 g/dl (32.0-36.0); MEAN PLT VOLUME 8.8 fl (7.5-11.1); MONO % 8.5 % (3.8-10.2); NEUT % 68.2 % (42.8-82.8); PLATELET COUNT 259 10^3/uL (134-434); RBC 2.94 M/mm3 (3.60-5.2); RDW 17.7 % (11.6-15.6); WHITE BLOOD COUNT 6.2 K/mm3 (4.0-10.0)
[2022-10-22 07:41] LABS: POTASSIUM 3.2 mmol/L (3.5-5.1)
[2022-10-22 07:44] LABS: BLOOD UREA NITROGEN 5.9 mg/dL (7-18); CALCIUM 8.4 mg/dL (8.5-10.1)
[2022-10-22 07:47] LABS: CREATININE 0.7 mg/dL (0.55-1.3)
[2022-10-22 07:48] LABS: TOT PROT 5.8 g/dl (6.4-8.2)
[2022-10-22 07:49] LABS: BILIRUBIN,TOTAL 0.3 mg/dL (0.2-1)
[2022-10-22] MEDS ORDERED: POTASSIUM CHLORIDE ORAL LIQUID 20 MEQ/15 ML PO ONE (08:26)
[2022-10-22] MEDS: LIPASE/PROTEASE/AMYLASE 36,000 UNIT CAPSULE PO SCH ×3 (08:27→17:37)
[2022-10-22] MEDS: HEPARIN NA (PORCINE) 5,000 UNITS/ML 1ML VIAL SQ SCH ×2 (10:11→21:45)
[2022-10-22] MEDS: FENOFIBRIC ACID 45 MG CAP PO SCH (10:11)
[2022-10-22] MEDS: PANTOPRAZOLE 40 MG TABLET PO SCH (10:11)
[2022-10-22] MEDS: metoPROLOL SUCCINATE 25 MG TAB.SR.24H (FP) PO SCH (10:11)
[2022-10-22] MEDS: LOSARTAN POTASSIUM 50 MG TABLET PO SCH (10:11)
[2022-10-22] MEDS: ATORVASTATIN CA 40 MG TABLET (FP) PO SCH (21:45)
[2022-10-23] MEDS: LIPASE/PROTEASE/AMYLASE 36,000 UNIT CAPSULE PO SCH ×3 (08:20→16:59)
[2022-10-23] MEDS: FENOFIBRIC ACID 45 MG CAP PO SCH (09:57)
[2022-10-23] MEDS: metoPROLOL SUCCINATE 25 MG TAB.SR.24H (FP) PO SCH (09:57)
[2022-10-23] MEDS: LOSARTAN POTASSIUM 50 MG TABLET PO SCH (09:57)
[2022-10-23] MEDS: PANTOPRAZOLE 40 MG TABLET PO SCH (09:57)
[2022-10-23] MEDS: HEPARIN NA (PORCINE) 5,000 UNITS/ML 1ML VIAL SQ SCH ×2 (09:57→21:15)
[2022-10-23] MEDS: ACETAMINOPHEN 325 MG TABLET (FP) PO PRN (20:20)
[2022-10-23] MEDS: ATORVASTATIN CA 40 MG TABLET (FP) PO SCH (21:15)
[2022-10-24] MEDS: LIPASE/PROTEASE/AMYLASE 36,000 UNIT CAPSULE PO SCH ×3 (09:16→18:18)
[2022-10-24] MEDS: LOSARTAN POTASSIUM 50 MG TABLET PO SCH (09:16)
[2022-10-24] MEDS: FENOFIBRIC ACID 45 MG CAP PO SCH (09:16)
[2022-10-24] MEDS: metoPROLOL SUCCINATE 25 MG TAB.SR.24H (FP) PO SCH (09:16)
[2022-10-24] MEDS: HEPARIN NA (PORCINE) 5,000 UNITS/ML 1ML VIAL SQ SCH ×2 (09:16→21:28)
[2022-10-24] MEDS: PANTOPRAZOLE 40 MG TABLET PO SCH (09:16)
[2022-10-24] MEDS ORDERED: FUROSEMIDE 40 MG/4 ML INJECTABLE VIAL IVPUSH ONE (12:19)
[2022-10-24] MEDS ORDERED: POTASSIUM CHLORIDE TABS 20 MEQ TABLET.ER (FP) PO ONE (12:20)
[2022-10-24] MEDS: BANATROL PLUS POWDER PACKET PO SCH ×2 (15:51→21:29)
[2022-10-24] MEDS: ATORVASTATIN CA 40 MG TABLET (FP) PO SCH (21:29)
[2022-10-24 22:07] LABS: RENIN ACTIVITY(PRA) 0.264 ng/mL/hr (0.167-5.380)
[2022-10-25] MEDS: BANATROL PLUS POWDER PACKET PO SCH ×3 (05:46→22:13)
[2022-10-25] MEDS: LIPASE/PROTEASE/AMYLASE 36,000 UNIT CAPSULE PO SCH ×3 (07:48→17:20)
[2022-10-25] MEDS: metoPROLOL SUCCINATE 25 MG TAB.SR.24H (FP) PO SCH (09:13)
[2022-10-25] MEDS: LOSARTAN POTASSIUM 50 MG TABLET PO SCH (09:13)
[2022-10-25] MEDS: HEPARIN NA (PORCINE) 5,000 UNITS/ML 1ML VIAL SQ SCH ×2 (09:13→22:13)
[2022-10-25] MEDS: FENOFIBRIC ACID 45 MG CAP PO SCH (09:13)
[2022-10-25] MEDS: PANTOPRAZOLE 40 MG TABLET PO SCH (09:14)
[2022-10-25] MEDS ORDERED: NICOTINE 21 MG/24 HOURS TOPICAL PATCH TD SCH (10:45)
[2022-10-25] MEDS ORDERED: LOSARTAN POTASSIUM 50 MG TABLET PO ONE (10:52)
[2022-10-25] MEDS ORDERED: amLODIPine BESYLATE 5 MG TABLET (FP) PO ONE (19:00)
[2022-10-25] MEDS: ATORVASTATIN CA 40 MG TABLET (FP) PO SCH (22:13)
[2022-10-26] MEDS: BANATROL PLUS POWDER PACKET PO SCH ×3 (06:52→22:46)
[2022-10-26] MEDS: LOSARTAN POTASSIUM 50 MG TABLET PO SCH (09:27)
[2022-10-26] MEDS: metoPROLOL SUCCINATE 25 MG TAB.SR.24H (FP) PO SCH (09:27)
[2022-10-26] MEDS: HEPARIN NA (PORCINE) 5,000 UNITS/ML 1ML VIAL SQ SCH ×2 (09:27→22:46)
[2022-10-26] MEDS: LIPASE/PROTEASE/AMYLASE 36,000 UNIT CAPSULE PO SCH ×3 (09:27→18:02)
[2022-10-26] MEDS: PANTOPRAZOLE 40 MG TABLET PO SCH (09:27)
[2022-10-26] MEDS: FENOFIBRIC ACID 45 MG CAP PO SCH (09:28)
[2022-10-26] MEDS: ACETAMINOPHEN 325 MG TABLET (FP) PO PRN (18:01)
[2022-10-26] MEDS: KETOROLAC TROMETHAMINE 15 MG/ML VIAL IVPUSH PRN (22:44)
[2022-10-26] MEDS: ATORVASTATIN CA 40 MG TABLET (FP) PO SCH (22:46)
[2022-10-27] MEDS: BANATROL PLUS POWDER PACKET PO SCH (05:58)
[2022-10-27] MEDS: KETOROLAC TROMETHAMINE 15 MG/ML VIAL IVPUSH PRN ×2 (06:08→11:10)
[2022-10-27 06:46] LABS: BASO % 0.9 % (0-2.0); EOS % 0.8 % (0-4.5); HEMOGLOBIN 9.3 GM/dL (10.7-15.3); LYMPH % 22.7 % (8-40); MCH 34.6 pg (25.7-33.7); MCHC 35.7 g/dl (32.0-36.0); MONO % 6.3 % (3.8-10.2); NEUT % 69.3 % (42.8-82.8); PLATELET COUNT 233 10^3/uL (134-434); RBC 2.68 M/mm3 (3.60-5.2); RDW 17.5 % (11.6-15.6); WHITE BLOOD COUNT 7.2 K/mm3 (4.0-10.0)
[2022-10-27 07:07] LABS: POTASSIUM 3.8 mmol/L (3.5-5.1)
[2022-10-27 07:10] LABS: ALBUMIN 2.2 g/dl (3.4-5.0); CALCIUM 9.2 mg/dL (8.5-10.1)
[2022-10-27 07:12] LABS: BLOOD UREA NITROGEN 9.1 mg/dL (7-18)
[2022-10-27 07:14] LABS: CREATININE 0.7 mg/dL (0.55-1.3)
[2022-10-27 07:15] LABS: BILIRUBIN,TOTAL 0.5 mg/dL (0.2-1)
[2022-10-27] MEDS: LIPASE/PROTEASE/AMYLASE 36,000 UNIT CAPSULE PO SCH ×2 (08:31→12:16)
[2022-10-27] MEDS: FENOFIBRIC ACID 45 MG CAP PO SCH (09:18)
[2022-10-27] MEDS: PANTOPRAZOLE 40 MG TABLET PO SCH (09:18)
[2022-10-27] MEDS: HEPARIN NA (PORCINE) 5,000 UNITS/ML 1ML VIAL SQ SCH (09:18)
[2022-10-27] MEDS: metoPROLOL SUCCINATE 25 MG TAB.SR.24H (FP) PO SCH (09:18)
[2022-10-27] MEDS: LOSARTAN POTASSIUM 50 MG TABLET PO SCH (09:19)
[2022-10-27 10:25] VITALS: BP 146/86; PULSE 66; RESP 20; TEMP 98.6
== END 2022-10-27 13:31 | DRG 689 ==
LOC: JER 14:23 → JERBED 19:08 → J4S 21:46
PROVIDERS: ADMIT Internal Medicine; ATTEND Internal Medicine
DX: N39.0 Urinary tract infection, site not specified (principal); E43 Unspecified severe protein-calorie malnutrition; S42.201A Unspecified fracture of upper end of right humerus, initial encounter for closed fracture; R64 Cachexia; Z68.1 Body mass index [BMI] 19.9 or less, adult; K86.0 Alcohol-induced chronic pancreatitis; G93.49 Other encephalopathy; J98.11 Atelectasis; E87.20 Acidosis, unspecified; I50.32 Chronic diastolic (congestive) heart failure; I25.10 Atherosclerotic heart disease of native coronary artery without angina pectoris; W19.XXXA Unspecified fall, initial encounter; Y93.89 Activity, other specified; Y92.230 Patient room in hospital as the place of occurrence of the external cause; Y99.8 Other external cause status; I11.0 Hypertensive heart disease with heart failure; Z95.1 Presence of aortocoronary bypass graft; R62.7 Adult failure to thrive; R13.10 Dysphagia, unspecified; D64.9 Anemia, unspecified; G40.909 Epilepsy, unspecified, not intractable, without status epilepticus; R77.8 Other specified abnormalities of plasma proteins; J44.9 Chronic obstructive pulmonary disease, unspecified; N28.1 Cyst of kidney, acquired; F10.20 Alcohol dependence, uncomplicated; K86.89 Other specified diseases of pancreas; E87.6 Hypokalemia; F41.9 Anxiety disorder, unspecified; F32.9 Major depressive disorder, single episode, unspecified
CPT/HCPCS: 0241U-QW; 36415; 36430; 70450-TC; 71045-TC-FY; 73030-TC-RT-FY; 74177-TC; 74182-TC; 80048; 80053; 80307; 81003; 82088; 82140; 82150; 82272; 82550; 82607; 82728; 82746; 82803; 82962; 83036; 83540; 83550; 83605; 83690; 83735; 84244; 84443; 84466; 84484; 85025; 85027; 85045; 85610; 85730; 86301; 86850; 86900; 86901; 86922; 87040; 87086; 87186; 93005; 93010; 93306-TC; 97116-GP; 97162-GP; 99285-25; A9579; C9803-CS; J1644; P9058; Q9967; U0003; U0005

== ENCOUNTER 2023-03-27 03:36 | Inpatient (IN) | payer OTHER ==
[2023-03-27 04:27] LABS: BASO % 0.2 % (0-2.0); EOS % 0.6 % (0-4.5); HEMATOCRIT 31.7 % (32.4-45.2); HEMOGLOBIN 10.7 GM/dL (10.7-15.3); LYMPH % 18.6 % (8-40); MCH 31.4 pg (25.7-33.7); MCHC 33.8 g/dl (32.0-36.0); MEAN CELL VOLUME 92.9 fl (80-96); MEAN PLT VOLUME 8.9 fl (7.5-11.1); MONO % 6.8 % (3.8-10.2); NEUT % 73.8 % (42.8-82.8); PLATELET COUNT 289 10^3/uL (134-434); RBC 3.41 M/mm3 (3.60-5.2); WHITE BLOOD COUNT 8.4 K/mm3 (4.0-10.0)
[2023-03-27 04:49] LABS: CHLORIDE 109 mmol/L (98-107); SODIUM 143 mmol/L (136-145)
[2023-03-27 04:52] LABS: CALCIUM 8.1 mg/dL (8.5-10.1)
[2023-03-27 04:53] LABS: ALBUMIN 2.2 g/dl (3.4-5.0); BLOOD UREA NITROGEN 8.8 mg/dL (7-18); CO2 21 mmol/L (21-32); GLUCOSE,RANDOM 110 mg/dL (74-106)
[2023-03-27 04:56] LABS: BILIRUBIN,TOTAL 0.4 mg/dL (0.2-1); CREATININE 0.7 mg/dL (0.55-1.3); SGOT/AST 20 U/L (15-37); SGPT/ALT 11 U/L (13-61)
[2023-03-27 04:57] LABS: EPI CELLS 2 /uL (0-25.1); HYALINE CASTS 0 /uL (0-3.1); URINE APPEARANCE CLOUDY; URINE BACTERIA 7532 /uL (0-1359); URINE BILIRUBIN NEGATIVE (NEGATIVE); URINE COLOR YELLOW; URINE GLUCOSE (UA) NEGATIVE (NEGATIVE); URINE KETONE NEGATIVE (NEGATIVE); URINE LEUK ESTERASE 3+ (NEGATIVE); URINE NITRITE POSITIVE (NEGATIVE); URINE PROTEIN TRACE (NEGATIVE); URINE RBC 20 /uL (0-23.9); URINE WBC 628 /uL (0-25.8)
[2023-03-27 04:58] LABS: TOT PROT 6.8 g/dl (6.4-8.2)
[2023-03-27 04:59] LABS: ALK PHOS 221 U/L (45-117)
[2023-03-27 05:07] LABS: ANION GAP 13 MMOL/L (8-16); POTASSIUM 2.7 mmol/L (3.5-5.1)
[2023-03-27] MEDS ORDERED: THIAMINE HCL 200 MG/2 ML VIAL IVPB ONE (05:13)
[2023-03-27] MEDS ORDERED: MAGNESIUM SULF 50% (8.12 MEQ/2 ML-1 GM VIAL) IVPB ONE (05:13)
[2023-03-27] MEDS ORDERED: LACTATED RINGERS SOLUTION 1000 ML INFUS.BAG IV ONE (05:14)
[2023-03-27 05:24] LABS: MAGNESIUM 1.4 mg/dL (1.8-2.4)
[2023-03-27] MEDS ORDERED: CEFTRIAXONE 1,000 MG in DEXTROSE 5%-WATER - 50 ML IVPB ONE (05:31)
[2023-03-27] MEDS ORDERED: CEFTRIAXONE 1 GM/50 ML BAG ONE (06:02)
[2023-03-27] MEDS ORDERED: MAGNESIUM 1GM/D5W - 1 GM/100 ML IVPB IVPB ONE (06:19)
[2023-03-27] MEDS ORDERED: KCL 10 MEQ IVPB 10 MEQ/100 ML INFUS.BAG IVPB ONE ×3 (06:57→11:24)
[2023-03-27] MEDS: KCL 10 MEQ IVPB 10 MEQ/100 ML INFUS.BAG IVPB SCH ×3 (07:04→11:30)
[2023-03-27] MEDS ORDERED: THIAMINE HCL 200 MG/2 ML VIAL ONE (07:11)
[2023-03-27] MEDS ORDERED: PANTOPRAZOLE 40 MG TABLET PO ONE (11:54)
[2023-03-27] MEDS ORDERED: LOSARTAN POTASSIUM 50 MG TABLET ONE (11:54)
[2023-03-27] MEDS: PANTOPRAZOLE 40 MG TABLET PO SCH (12:21)
[2023-03-27] MEDS: LOSARTAN POTASSIUM 50 MG TABLET PO SCH (12:21)
[2023-03-27] MEDS: DEXTROSE 5%-0.45% SALINE 1,000 ML IV SCH (13:08)
[2023-03-27] MEDS: LIPASE/PROTEASE/AMYLASE 36,000 UNIT CAPSULE PO SCH ×2 (13:37→18:36)
[2023-03-27 15:05] LABS: POTASSIUM 3.6 mmol/L (3.5-5.1)
[2023-03-27 15:06] LABS: CALCIUM 8.3 mg/dL (8.5-10.1)
[2023-03-27 15:07] LABS: BLOOD UREA NITROGEN 9.3 mg/dL (7-18)
[2023-03-27 15:10] LABS: CREATININE 1.1 mg/dL (0.55-1.3)
[2023-03-27] MEDS: ATORVASTATIN CA 40 MG TABLET (FP) PO SCH ×2 (21:25→21:28)
[2023-03-28] MEDS: LIPASE/PROTEASE/AMYLASE 36,000 UNIT CAPSULE PO SCH ×3 (08:06→17:54)
[2023-03-28 09:23] LABS: BASO % 0.2 % (0-2.0); EOS % 2.8 % (0-4.5); HEMATOCRIT 27.3 % (32.4-45.2); HEMOGLOBIN 9.2 GM/dL (10.7-15.3); LYMPH % 16.8 % (8-40); MCH 31.9 pg (25.7-33.7); MCHC 33.6 g/dl (32.0-36.0); MEAN PLT VOLUME 9.3 fl (7.5-11.1); MONO % 7.2 % (3.8-10.2); PLATELET COUNT 184 10^3/uL (134-434); RBC 2.88 M/mm3 (3.60-5.2); RDW 20.2 % (11.6-15.6); WHITE BLOOD COUNT 12.3 K/mm3 (4.0-10.0)
[2023-03-28] MEDS: GABAPENTIN 300 MG CAPSULE PO SCH (09:28)
[2023-03-28] MEDS: ENOXAPARIN NA (PORCINE) 40 MG/0.4 ML DISP.SYRIN SQ SCH (09:28)
[2023-03-28] MEDS: FENOFIBRIC ACID 45 MG CAP PO SCH (09:28)
[2023-03-28] MEDS: CYANOCOBALAMIN (VITAMIN B-12) 100 MCG TABLET PO SCH (09:29)
[2023-03-28] MEDS: LOSARTAN POTASSIUM 50 MG TABLET PO SCH (09:29)
[2023-03-28] MEDS: PANTOPRAZOLE 40 MG TABLET PO SCH (09:29)
[2023-03-28 09:46] LABS: CHLORIDE 110 mmol/L (98-107); SODIUM 141 mmol/L (136-145)
[2023-03-28 09:48] LABS: BLOOD UREA NITROGEN 12.4 mg/dL (7-18); CALCIUM 8.1 mg/dL (8.5-10.1); CO2 22 mmol/L (21-32); GLUCOSE,RANDOM 195 mg/dL (74-106)
[2023-03-28 09:51] LABS: CREATININE 1.1 mg/dL (0.55-1.3); SGOT/AST 14 U/L (15-37)
[2023-03-28 09:53] LABS: SGPT/ALT 8 U/L (13-61)
[2023-03-28 09:54] LABS: BILIRUBIN,TOTAL 0.5 mg/dL (0.2-1); TOT PROT 5.7 g/dl (6.4-8.2)
[2023-03-28 10:34] LABS: ALK PHOS 183 U/L (45-117); ANION GAP 9 MMOL/L (8-16); POTASSIUM 2.7 mmol/L (3.5-5.1)
[2023-03-28] MEDS ORDERED: POTASSIUM CHLORIDE ORAL LIQUID 20 MEQ/15 ML PO ONE (13:50)
[2023-03-28] MEDS: CEFTRIAXONE 1 GM in DEXTROSE 5%-WATER - 50 ML IVPB SCH (15:21)
[2023-03-28] MEDS: KCL 10 MEQ IVPB 10 MEQ/100 ML INFUS.BAG IVPB SCH ×3 (15:23→20:49)
[2023-03-28] MEDS: DEXTROSE 5%-0.45% SALINE 1,000 ML IV SCH (15:23)
[2023-03-28] MEDS: NICOTINE 21 MG/24 HOURS TOPICAL PATCH TD SCH (15:45)
[2023-03-28] MEDS ORDERED: KCL 10 MEQ IVPB 10 MEQ/100 ML INFUS.BAG IVPB SCH (20:45)
[2023-03-28] MEDS: ATORVASTATIN CA 40 MG TABLET (FP) PO SCH (21:14)
[2023-03-29] MEDS: LIPASE/PROTEASE/AMYLASE 36,000 UNIT CAPSULE PO SCH ×3 (08:19→17:43)
[2023-03-29] MEDS: GABAPENTIN 300 MG CAPSULE PO SCH (10:19)
[2023-03-29] MEDS: ENOXAPARIN NA (PORCINE) 40 MG/0.4 ML DISP.SYRIN SQ SCH (10:19)
[2023-03-29] MEDS: NICOTINE 21 MG/24 HOURS TOPICAL PATCH TD SCH (10:19)
[2023-03-29] MEDS: LOSARTAN POTASSIUM 50 MG TABLET PO SCH (10:19)
[2023-03-29] MEDS: CEFTRIAXONE 1 GM in DEXTROSE 5%-WATER - 50 ML IVPB SCH (10:20)
[2023-03-29] MEDS: PANTOPRAZOLE 40 MG TABLET PO SCH (10:20)
[2023-03-29] MEDS: CYANOCOBALAMIN (VITAMIN B-12) 100 MCG TABLET PO SCH (10:20)
[2023-03-29] MEDS: FENOFIBRIC ACID 45 MG CAP PO SCH (10:20)
[2023-03-29] MEDS: DEXTROSE 5%-0.45% SALINE 1,000 ML IV SCH (12:23)
[2023-03-29 13:11] LABS: CHLORIDE 108 mmol/L (98-107); SODIUM 138 mmol/L (136-145)
[2023-03-29 13:15] LABS: ALBUMIN 1.8 g/dl (3.4-5.0); BLOOD UREA NITROGEN 10.3 mg/dL (7-18); CALCIUM 7.7 mg/dL (8.5-10.1); CO2 22 mmol/L (21-32); GLUCOSE,RANDOM 220 mg/dL (74-106)
[2023-03-29 13:17] LABS: SGPT/ALT 8 U/L (13-61)
[2023-03-29 13:18] LABS: CREATININE 0.8 mg/dL (0.55-1.3); SGOT/AST 14 U/L (15-37)
[2023-03-29 13:19] LABS: BILIRUBIN,TOTAL 0.3 mg/dL (0.2-1); TOT PROT 5.7 g/dl (6.4-8.2)
[2023-03-29 13:21] LABS: ALK PHOS 174 U/L (45-117)
[2023-03-29 13:23] LABS: ANION GAP 7 MMOL/L (8-16); POTASSIUM 2.9 mmol/L (3.5-5.1)
[2023-03-29 16:21] VITALS: BMI 13.4
[2023-03-29] MEDS ORDERED: POTASSIUM CHLORIDE ORAL LIQUID 20 MEQ/15 ML PO ONE (16:57)
[2023-03-29] MEDS: KCL 10 MEQ IVPB 10 MEQ/100 ML INFUS.BAG IVPB SCH ×2 (17:44→21:20)
[2023-03-29] MEDS ORDERED: ACETAMINOPHEN 325 MG TABLET (FP) PO ONE (21:00)
[2023-03-29] MEDS: ATORVASTATIN CA 40 MG TABLET (FP) PO SCH (21:19)
[2023-03-30] MEDS: KCL 10 MEQ IVPB 10 MEQ/100 ML INFUS.BAG IVPB SCH (03:35)
[2023-03-30] MEDS: DEXTROSE 5%-0.45% SALINE 1,000 ML IV SCH (06:27)
[2023-03-30] MEDS: LIPASE/PROTEASE/AMYLASE 36,000 UNIT CAPSULE PO SCH ×3 (08:33→17:10)
[2023-03-30] MEDS: CEFTRIAXONE 1 GM in DEXTROSE 5%-WATER - 50 ML IVPB SCH (09:30)
[2023-03-30] MEDS: LOSARTAN POTASSIUM 50 MG TABLET PO SCH (09:30)
[2023-03-30] MEDS: GABAPENTIN 300 MG CAPSULE PO SCH (09:30)
[2023-03-30] MEDS: PANTOPRAZOLE 40 MG TABLET PO SCH (09:30)
[2023-03-30] MEDS: ENOXAPARIN NA (PORCINE) 40 MG/0.4 ML DISP.SYRIN SQ SCH (09:31)
[2023-03-30] MEDS: CYANOCOBALAMIN (VITAMIN B-12) 100 MCG TABLET PO SCH (09:31)
[2023-03-30] MEDS: NICOTINE 21 MG/24 HOURS TOPICAL PATCH TD SCH (09:31)
[2023-03-30 11:10] LABS: BASO % 0.4 % (0-2.0); EOS % 2.8 % (0-4.5); HEMATOCRIT 27.9 % (32.4-45.2); HEMOGLOBIN 9.4 GM/dL (10.7-15.3); LYMPH % 25.9 % (8-40); MCH 31.9 pg (25.7-33.7); MCHC 33.8 g/dl (32.0-36.0); MEAN CELL VOLUME 94.5 fl (80-96); MEAN PLT VOLUME 9.2 fl (7.5-11.1); MONO % 8.1 % (3.8-10.2); NEUT % 62.8 % (42.8-82.8); PLATELET COUNT 188 10^3/uL (134-434); RBC 2.95 M/mm3 (3.60-5.2); RDW 19.8 % (11.6-15.6); WHITE BLOOD COUNT 5.9 K/mm3 (4.0-10.0)
[2023-03-30 11:38] LABS: POTASSIUM 3.6 mmol/L (3.5-5.1)
[2023-03-30 11:50] LABS: ALBUMIN 1.9 g/dl (3.4-5.0)
[2023-03-30 11:53] LABS: CREATININE 0.7 mg/dL (0.55-1.3)
[2023-03-30 11:55] LABS: BILIRUBIN,TOTAL 0.4 mg/dL (0.2-1); TOT PROT 5.8 g/dl (6.4-8.2)
[2023-03-30] MEDS: FENOFIBRIC ACID 45 MG CAP PO SCH (11:58)
[2023-03-30] MEDS: ATORVASTATIN CA 40 MG TABLET (FP) PO SCH (21:56)
[2023-03-30] MEDS: amLODIPine BESYLATE 5 MG TABLET (FP) PO SCH (22:01)
[2023-03-31] MEDS: LOSARTAN POTASSIUM 50 MG TABLET PO SCH (09:35)
[2023-03-31] MEDS: LIPASE/PROTEASE/AMYLASE 36,000 UNIT CAPSULE PO SCH ×2 (09:36→14:52)
[2023-03-31] MEDS: amLODIPine BESYLATE 5 MG TABLET (FP) PO SCH (09:38)
[2023-03-31] MEDS ORDERED: CYANOCOBALAMIN (VITAMIN B-12) 100 MCG TABLET PO SCH (10:00)
[2023-03-31] MEDS ORDERED: CEFTRIAXONE 1 GM in DEXTROSE 5%-WATER - 50 ML IVPB SCH (10:00)
[2023-03-31] MEDS ORDERED: NICOTINE 21 MG/24 HOURS TOPICAL PATCH TD SCH (10:00)
[2023-03-31] MEDS ORDERED: ENOXAPARIN NA (PORCINE) 40 MG/0.4 ML DISP.SYRIN SQ SCH (10:00)
[2023-03-31] MEDS ORDERED: PANTOPRAZOLE 40 MG TABLET PO SCH (10:00)
[2023-03-31] MEDS ORDERED: FENOFIBRIC ACID 45 MG CAP PO SCH (10:00)
[2023-03-31] MEDS ORDERED: GABAPENTIN 300 MG CAPSULE PO SCH (10:00)
[2023-03-31 11:20] LABS: BASO % 0.3 % (0-2.0); EOS % 3.3 % (0-4.5); HEMATOCRIT 26.9 % (32.4-45.2); HEMOGLOBIN 9.1 GM/dL (10.7-15.3); MCH 31.9 pg (25.7-33.7); MCHC 33.6 g/dl (32.0-36.0); MEAN CELL VOLUME 94.7 fl (80-96); MEAN PLT VOLUME 8.9 fl (7.5-11.1); MONO % 10.4 % (3.8-10.2); PLATELET COUNT 193 10^3/uL (134-434); RBC 2.84 M/mm3 (3.60-5.2); RDW 20.4 % (11.6-15.6); WHITE BLOOD COUNT 5.4 K/mm3 (4.0-10.0)
[2023-03-31 11:55] LABS: POTASSIUM 3.1 mmol/L (3.5-5.1)
[2023-03-31 13:00] LABS: CALCIUM 7.9 mg/dL (8.5-10.1)
[2023-03-31 13:01] LABS: ALBUMIN 1.9 g/dl (3.4-5.0); BLOOD UREA NITROGEN 9.6 mg/dL (7-18)
[2023-03-31 13:04] LABS: BILIRUBIN,TOTAL 0.2 mg/dL (0.2-1); CREATININE 0.8 mg/dL (0.55-1.3); TOT PROT 5.9 g/dl (6.4-8.2)
[2023-03-31] MEDS ORDERED: POTASSIUM CHLORIDE ORAL LIQUID 20 MEQ/15 ML PO ONE (15:00)
[2023-03-31 15:13] VITALS: BP 151/92; PULSE 90; RESP 18; TEMP 98.9
[2023-03-31] MEDS ORDERED: ATORVASTATIN CA 40 MG TABLET (FP) PO SCH (22:00)
== END 2023-03-31 16:32 | disposition home health service (06) | DRG 896 ==
LOC: JER 03:36 → JERBED 09:09 → OBSVTOIN 10:58 → J4S 15:04 → J5S 03-29 15:50
PROVIDERS: ADMIT Internal Medicine; ATTEND Internal Medicine
PROC: HZ2ZZZZ Detoxification Services for Substance Abuse Treatment (ICD-10-PCS; principal; 2023-03-27)
PROC: 0HQ0XZZ Repair Scalp Skin, External Approach (ICD-10-PCS; 2023-03-27)
DX: F10.239 Alcohol dependence with withdrawal, unspecified (principal); E43 Unspecified severe protein-calorie malnutrition; K86.0 Alcohol-induced chronic pancreatitis; Z68.1 Body mass index [BMI] 19.9 or less, adult; N39.0 Urinary tract infection, site not specified; R64 Cachexia; R29.6 Repeated falls; E83.42 Hypomagnesemia; E87.6 Hypokalemia; S01.81XA Laceration without foreign body of other part of head, initial encounter; I25.10 Atherosclerotic heart disease of native coronary artery without angina pectoris; I11.0 Hypertensive heart disease with heart failure; E78.5 Hyperlipidemia, unspecified; K21.9 Gastro-esophageal reflux disease without esophagitis; F17.210 Nicotine dependence, cigarettes, uncomplicated; D64.9 Anemia, unspecified; R62.7 Adult failure to thrive; R56.9 Unspecified convulsions; W19.XXXA Unspecified fall, initial encounter; Y93.9 Activity, unspecified; Y92.89 Other specified places as the place of occurrence of the external cause; Y99.9 Unspecified external cause status; Z95.1 Presence of aortocoronary bypass graft
CPT/HCPCS: 36415; 70450-TC; 70486-TC; 71045-TC-FY; 72125-TC; 72170-TC-FY; 80048; 80053; 80307; 81003; 82962; 83735; 84439; 84443; 84484; 85025; 86850; 86900; 86901; 87040; 87086; 87186; 93005; 93010; 97116-GP; 97161-GP; 99285-25; G0378

== ENCOUNTER 2023-06-21 15:32 | Inpatient (IN) | payer OTHER ==
[2023-06-21] MEDS ORDERED: SODIUM CHLORIDE 1,000 ML IV STA (19:01)
[2023-06-21 21:37] LABS: BASO % 0.5 % (0-2.0); EOS % 0.1 % (0-4.5); HEMATOCRIT 32.8 % (32.4-45.2); HEMOGLOBIN 11.2 GM/dL (10.7-15.3); LYMPH % 30.2 % (8-40); MCH 36.2 pg (25.7-33.7); MCHC 34.1 g/dl (32.0-36.0); MEAN CELL VOLUME 106.3 fl (80-96); MEAN PLT VOLUME 11.6 fl (7.5-11.1); MONO % 6.8 % (3.8-10.2); NEUT % 62.4 % (42.8-82.8); PLATELET COUNT 86 10^3/uL (134-434); RBC 3.08 M/mm3 (3.60-5.2); RDW 16.6 % (11.6-15.6); WHITE BLOOD COUNT 6.4 K/mm3 (4.0-10.0)
[2023-06-21 21:43] LABS: INR 0.97 (0.83-1.09); PROTHROMBIN TIME (PATIENT) 11.2 SEC (9.7-13.0)
[2023-06-21 21:45] LABS: ACTIVATED PTT 30.5 SECONDS (25.2-36.5)
[2023-06-21 21:55] LABS: POTASSIUM 3.4 mmol/L (3.5-5.1)
[2023-06-21 21:58] LABS: BLOOD UREA NITROGEN 30.8 mg/dL (7-18); CALCIUM 9.3 mg/dL (8.5-10.1)
[2023-06-21] MEDS ORDERED: POTASSIUM CHLORIDE TABS 20 MEQ TABLET.ER (FP) PO ONE (21:58)
[2023-06-21 22:03] LABS: BILIRUBIN,TOTAL 0.9 mg/dL (0.2-1); TOT PROT 6.8 g/dl (6.4-8.2)
[2023-06-21] MEDS ORDERED: POTASSIUM CHLORIDE ORAL LIQUID 20 MEQ/15 ML PO ONE (22:11)
[2023-06-21] MEDS ORDERED: POTASSIUM CHLORIDE ORAL LIQUID 20 MEQ/15 ML ONE (22:21)
[2023-06-21 23:27] LABS: ANISOCYTOSIS 2+; MACROCYTOSIS 0; TARGET CELLS 2+; TEAR DROP CELLS 2+
[2023-06-22 00:43] LABS: POTASSIUM 3.4 mmol/L (3.5-5.1)
[2023-06-22 00:47] LABS: BLOOD UREA NITROGEN 26.8 mg/dL (7-18)
[2023-06-22 00:49] LABS: CREATININE 0.7 mg/dL (0.55-1.3)
[2023-06-22 01:02] LABS: CALCIUM 7.6 mg/dL (8.5-10.1)
[2023-06-22 01:57] LABS: EPI CELLS 11 /uL (0-25.1); HYALINE CASTS 1 /uL (0-3.1); PH,URINE 7.5 (5.0-8.0); URINE APPEARANCE TURBID; URINE BACTERIA >9,000 /uL (0-1359); URINE BILIRUBIN 2+ (NEGATIVE); URINE COLOR DK YELLOW; URINE GLUCOSE (UA) NEGATIVE (NEGATIVE); URINE KETONE TRACE (NEGATIVE); URINE LEUK ESTERASE 3+ (NEGATIVE); URINE NITRITE POSITIVE (NEGATIVE); URINE PROTEIN 2+ (NEGATIVE); URINE WBC 1824 /uL (0-25.8)
[2023-06-22] MEDS ORDERED: CEFTRIAXONE 1,000 MG in DEXTROSE 5%-WATER - 50 ML IVPB ONE (03:49)
[2023-06-22] MEDS ORDERED: CEFTRIAXONE 1 GM/50 ML BAG ONE (03:51)
[2023-06-22 06:43] LABS: YEAST NONE SEEN (NEGATIVE)
[2023-06-22] MEDS: amLODIPine BESYLATE 5 MG TABLET (FP) PO SCH (11:47)
[2023-06-22] MEDS: LOSARTAN POTASSIUM 50 MG TABLET PO SCH (11:47)
[2023-06-22] MEDS: PANTOPRAZOLE 40 MG TABLET PO SCH (17:47)
[2023-06-22 20:03] LABS: BASO % 0.5 % (0-2.0); EOS % 0.9 % (0-4.5); HEMOGLOBIN 9.9 GM/dL (10.7-15.3); LYMPH % 35.4 % (8-40); MCH 35.1 pg (25.7-33.7); MCHC 32.8 g/dl (32.0-36.0); MEAN CELL VOLUME 106.9 fl (80-96); MEAN PLT VOLUME 10.8 fl (7.5-11.1); NEUT % 59.2 % (42.8-82.8); PLATELET COUNT 74 10^3/uL (134-434); RBC 2.81 M/mm3 (3.60-5.2); RDW 16.3 % (11.6-15.6); WHITE BLOOD COUNT 5.4 K/mm3 (4.0-10.0)
[2023-06-22] MEDS: HEPARIN NA (PORCINE) 5,000 UNITS/ML 1ML VIAL SQ SCH (22:00)
[2023-06-23] MEDS: ATORVASTATIN CA 40 MG TABLET (FP) PO SCH ×2 (05:35→21:28)
[2023-06-23] MEDS: HEPARIN NA (PORCINE) 5,000 UNITS/ML 1ML VIAL SQ SCH ×2 (10:23→21:27)
[2023-06-23] MEDS: PANTOPRAZOLE 40 MG TABLET PO SCH (10:23)
[2023-06-23] MEDS: LOSARTAN POTASSIUM 50 MG TABLET PO SCH (10:23)
[2023-06-23] MEDS: amLODIPine BESYLATE 5 MG TABLET (FP) PO SCH (10:23)
[2023-06-23] MEDS: CEFTRIAXONE 1 GM in DEXTROSE 5%-WATER - 50 ML IVPB SCH (10:24)
[2023-06-23] MEDS ORDERED: MAGNESIUM OXIDE 400 MG TABLET (FP) PO ONE (13:30)
[2023-06-23] MEDS ORDERED: POTASSIUM CHLORIDE ORAL LIQUID 20 MEQ/15 ML PO ONE (14:00)
[2023-06-23 17:31] LABS: POTASSIUM 3.4 mmol/L (3.5-5.1)
[2023-06-23 17:34] LABS: ALBUMIN 1.7 g/dl (3.4-5.0); BLOOD UREA NITROGEN 26.4 mg/dL (7-18); CALCIUM 7.8 mg/dL (8.5-10.1); MAGNESIUM 1.3 mg/dL (1.8-2.4)
[2023-06-23 17:36] LABS: CREATININE 0.9 mg/dL (0.55-1.3)
[2023-06-23 17:38] LABS: BILIRUBIN,TOTAL 0.2 mg/dL (0.2-1); TOT PROT 5.1 g/dl (6.4-8.2)
[2023-06-24] MEDS ORDERED: MAGNESIUM 2GM/50ML STERILE WATER IVPB IVPB ONE (06:28)
[2023-06-24] MEDS ORDERED: POTASSIUM CHLORIDE ORAL LIQUID 20 MEQ/15 ML PO ONE (11:08)
[2023-06-24] MEDS ORDERED: MAGNESIUM SULFATE IN WATER 2 GM/50 ML IVPB IVPB ONE (11:30)
[2023-06-24] MEDS: HEPARIN NA (PORCINE) 5,000 UNITS/ML 1ML VIAL SQ SCH ×2 (11:37→22:13)
[2023-06-24] MEDS: CEFTRIAXONE 1 GM in DEXTROSE 5%-WATER - 50 ML IVPB SCH (11:37)
[2023-06-24] MEDS: LOSARTAN POTASSIUM 50 MG TABLET PO SCH ×2 (11:38→11:57)
[2023-06-24] MEDS: amLODIPine BESYLATE 5 MG TABLET (FP) PO SCH ×2 (11:39→11:57)
[2023-06-24] MEDS: PANTOPRAZOLE 40 MG TABLET PO SCH (11:39)
[2023-06-24 12:56] LABS: POTASSIUM 3.6 mmol/L (3.5-5.1)
[2023-06-24 12:57] LABS: CALCIUM 8.4 mg/dL (8.5-10.1)
[2023-06-24 12:58] LABS: BLOOD UREA NITROGEN 22.7 mg/dL (7-18); MAGNESIUM 3.5 mg/dL (1.8-2.4)
[2023-06-24 13:53] LABS: BASO % 0.2 % (0-2.0); EOS % 1.3 % (0-4.5); HEMATOCRIT 28.4 % (32.4-45.2); HEMOGLOBIN 9.5 GM/dL (10.7-15.3); LYMPH % 34.5 % (8-40); MCH 36.7 pg (25.7-33.7); MCHC 33.5 g/dl (32.0-36.0); MEAN CELL VOLUME 109.5 fl (80-96); MEAN PLT VOLUME 10.7 fl (7.5-11.1); PLATELET COUNT 122 10^3/uL (134-434); RBC 2.59 M/mm3 (3.60-5.2); RDW 16.8 % (11.6-15.6); WHITE BLOOD COUNT 5.4 K/mm3 (4.0-10.0)
[2023-06-24 16:18] VITALS: BMI 10.9
[2023-06-24] MEDS: NICOTINE 14 MG/24 HOURS TOPICAL PATCH TD SCH (16:19)
[2023-06-24] MEDS: ATORVASTATIN CA 40 MG TABLET (FP) PO SCH (22:13)
[2023-06-25 07:47] LABS: BASO % 0.4 % (0-2.0); EOS % 0.7 % (0-4.5); HEMATOCRIT 28.7 % (32.4-45.2); HEMOGLOBIN 9.7 GM/dL (10.7-15.3); LYMPH % 27.3 % (8-40); MCH 36.8 pg (25.7-33.7); MCHC 33.7 g/dl (32.0-36.0); MEAN PLT VOLUME 10.8 fl (7.5-11.1); MONO % 10.1 % (3.8-10.2); NEUT % 61.5 % (42.8-82.8); PLATELET COUNT 145 10^3/uL (134-434); RBC 2.63 M/mm3 (3.60-5.2); RDW 16.4 % (11.6-15.6); WHITE BLOOD COUNT 6.1 K/mm3 (4.0-10.0)
[2023-06-25 09:00] LABS: ANISOCYTOSIS 2+; MACROCYTOSIS 0
[2023-06-25 09:02] LABS: POTASSIUM 4.2 mmol/L (3.5-5.1)
[2023-06-25 09:07] LABS: CALCIUM 8.6 mg/dL (8.5-10.1)
[2023-06-25 09:08] LABS: ALBUMIN 1.9 g/dl (3.4-5.0); BLOOD UREA NITROGEN 24.1 mg/dL (7-18)
[2023-06-25 09:10] VITALS: RESP 18
[2023-06-25 09:11] LABS: CREATININE 0.8 mg/dL (0.55-1.3)
[2023-06-25 09:12] LABS: BILIRUBIN,TOTAL 0.3 mg/dL (0.2-1)
[2023-06-25] MEDS: CEFTRIAXONE 1 GM in DEXTROSE 5%-WATER - 50 ML IVPB SCH (09:12)
[2023-06-25] MEDS: NICOTINE 14 MG/24 HOURS TOPICAL PATCH TD SCH (09:12)
[2023-06-25] MEDS: LOSARTAN POTASSIUM 50 MG TABLET PO SCH (09:13)
[2023-06-25] MEDS: amLODIPine BESYLATE 5 MG TABLET (FP) PO SCH (09:13)
[2023-06-25] MEDS: HEPARIN NA (PORCINE) 5,000 UNITS/ML 1ML VIAL SQ SCH ×2 (09:13→21:44)
[2023-06-25] MEDS: PANTOPRAZOLE 40 MG TABLET PO SCH (09:13)
[2023-06-25] MEDS: ATORVASTATIN CA 40 MG TABLET (FP) PO SCH (21:44)
[2023-06-25 23:51] LABS: N-TERMINAL BNP 11092.2 pg/ml (5-125)
[2023-06-26] MEDS: LOSARTAN POTASSIUM 50 MG TABLET PO SCH (09:02)
[2023-06-26] MEDS: CEFTRIAXONE 1 GM in DEXTROSE 5%-WATER - 50 ML IVPB SCH (09:02)
[2023-06-26] MEDS: amLODIPine BESYLATE 5 MG TABLET (FP) PO SCH (09:02)
[2023-06-26] MEDS: HEPARIN NA (PORCINE) 5,000 UNITS/ML 1ML VIAL SQ SCH (09:02)
[2023-06-26] MEDS: NICOTINE 14 MG/24 HOURS TOPICAL PATCH TD SCH (09:02)
[2023-06-26] MEDS: PANTOPRAZOLE 40 MG TABLET PO SCH (09:02)
[2023-06-26 18:08] VITALS: BP 109/69; PULSE 88; TEMP 99
== END 2023-06-26 18:08 | DRG 689 ==
LOC: JER 15:32 → JERBED 06-22 09:24 → UNDOADMOB 06-22 09:24 → INTOOBSV 06-22 09:24 → JERBED 06-22 11:43 → J4W 06-22 17:31 → OBSVTOIN 06-23 14:09
PROVIDERS: ADMIT Internal Medicine; ATTEND Internal Medicine
DX: N39.0 Urinary tract infection, site not specified (principal); E43 Unspecified severe protein-calorie malnutrition; K86.1 Other chronic pancreatitis; Z68.1 Body mass index [BMI] 19.9 or less, adult; R64 Cachexia; I50.32 Chronic diastolic (congestive) heart failure; I24.89 Other forms of acute ischemic heart disease; I25.10 Atherosclerotic heart disease of native coronary artery without angina pectoris; I11.0 Hypertensive heart disease with heart failure; Z95.1 Presence of aortocoronary bypass graft; E78.5 Hyperlipidemia, unspecified; R62.7 Adult failure to thrive; F10.10 Alcohol abuse, uncomplicated; E87.6 Hypokalemia; K21.9 Gastro-esophageal reflux disease without esophagitis; F32.A Depression, unspecified; F41.9 Anxiety disorder, unspecified; J44.9 Chronic obstructive pulmonary disease, unspecified; E86.0 Dehydration; F17.210 Nicotine dependence, cigarettes, uncomplicated; D64.9 Anemia, unspecified; G40.909 Epilepsy, unspecified, not intractable, without status epilepticus; D69.6 Thrombocytopenia, unspecified
CPT/HCPCS: 0241U-QW; 36415; 71045-TC-FY; 80048; 80053; 80061; 80307; 81003; 83036; 83690; 83735; 83880; 84484; 85025; 85610; 85730; 86850; 86900; 86901; 87086; 87186; 93005; 93010; 97116-GP; 97162-GP; 99285-25; G0378; J1644

== ENCOUNTER 2023-12-06 14:04 | Inpatient (IN) | payer OTHER, MEDICARE ==
[2023-12-06] MEDS: DEXTROSE 5%-0.45% SALINE 1,000 ML IV SCH ×2 (18:35→23:12)
[2023-12-06 18:40] LABS: BASO % 0.3 % (0-2.0); EOS % 0.8 % (0-4.5); HEMATOCRIT 30.9 % (32.4-45.2); HEMOGLOBIN 10.4 GM/dL (10.7-15.3); LYMPH % 28.6 % (8-40); MCHC 33.5 g/dl (32.0-36.0); MEAN CELL VOLUME 104.4 fl (80-96); MEAN PLT VOLUME 10.5 fl (7.5-11.1); MONO % 6.3 % (3.8-10.2); PLATELET COUNT 63 10^3/uL (134-434); RBC 2.96 M/mm3 (3.60-5.2); RDW 15.4 % (11.6-15.6); WHITE BLOOD COUNT 6.8 K/mm3 (4.0-10.0)
[2023-12-06 18:45] LABS: INR 0.9 (0.83-1.09); PROTHROMBIN TIME (PATIENT) 10.4 SEC (9.7-13.0)
[2023-12-06 18:48] LABS: ACTIVATED PTT 32.8 SECONDS (25.2-36.5)
[2023-12-06 19:07] LABS: CHLORIDE 102 mmol/L (98-107); POTASSIUM 3.7 mmol/L (3.5-5.1); SODIUM 136 mmol/L (136-145)
[2023-12-06 19:11] LABS: ALBUMIN 2.2 g/dl (3.4-5.0); ANION GAP 9 mmol/L (4-13); BLOOD UREA NITROGEN 32.1 mg/dL (7-18); CALCIUM 8.5 mg/dL (8.5-10.1); CO2 25 mmol/L (21-32); GLUCOSE,RANDOM 130 mg/dL (74-106)
[2023-12-06 19:13] LABS: CREATININE 1.1 mg/dL (0.55-1.3); SGOT/AST 27 U/L (15-37)
[2023-12-06 19:14] LABS: SGPT/ALT 11 U/L (13-61)
[2023-12-06 19:15] LABS: BILIRUBIN,TOTAL 0.5 mg/dL (0.2-1); TOT PROT 6.6 g/dl (6.4-8.2)
[2023-12-06 19:16] LABS: ALK PHOS 225 U/L (45-117); N-TERMINAL BNP 4663.5 pg/ml (5-125)
[2023-12-06] MEDS ORDERED: THIAMINE HCL 200 MG/2 ML VIAL ONE (21:07)
[2023-12-06] MEDS: THIAMINE HCL 200 MG/2 ML VIAL IVPB ONE (21:12)
[2023-12-06] MEDS ORDERED: DOCUSATE SODIUM 100 MG CAPSULE (FP) PO PRN (22:09)
[2023-12-06] MEDS: SODIUM CHLORIDE 0.45% 1,000 ML IV SCH (23:12)
[2023-12-07] MEDS: DEXTROSE 5%-0.45% SALINE 1,000 ML IV SCH (03:43)
[2023-12-07 06:37] LABS: URINE APPEARANCE TURBID; URINE BILIRUBIN NEGATIVE (NEGATIVE); URINE COLOR DK YELLOW; URINE GLUCOSE (UA) NEGATIVE (NEGATIVE); URINE KETONE TRACE (NEGATIVE); URINE LEUK ESTERASE 2+ (NEGATIVE); URINE NITRITE NEGATIVE (NEGATIVE); URINE PROTEIN 1+ (NEGATIVE)
[2023-12-07 07:12] LABS: BASO % 0.3 % (0-2.0); EOS % 1.2 % (0-4.5); HEMOGLOBIN 9.4 GM/dL (10.7-15.3); LYMPH % 43.3 % (8-40); MCHC 33.5 g/dl (32.0-36.0); MEAN CELL VOLUME 104.5 fl (80-96); MEAN PLT VOLUME 10.6 fl (7.5-11.1); MONO % 4.4 % (3.8-10.2); NEUT % 50.8 % (42.8-82.8); PLATELET COUNT 78 10^3/uL (134-434); RBC 2.68 M/mm3 (3.60-5.2); RDW 15.1 % (11.6-15.6); WHITE BLOOD COUNT 5.8 K/mm3 (4.0-10.0)
[2023-12-07 07:14] LABS: EPI CELLS 11 /uL (0-25.1); HYALINE CASTS 7 /uL (0-3.1); URINE BACTERIA 35952 /uL (0-1359); URINE RBC 10 /uL (0-23.9); URINE WBC 518 /uL (0-25.8)
[2023-12-07 07:38] LABS: POTASSIUM 3.2 mmol/L (3.5-5.1)
[2023-12-07 07:39] LABS: CALCIUM 8.2 mg/dL (8.5-10.1)
[2023-12-07 07:40] LABS: BLOOD UREA NITROGEN 29.8 mg/dL (7-18); MAGNESIUM 1.4 mg/dL (1.8-2.4)
[2023-12-07 07:43] LABS: CREATININE 0.9 mg/dL (0.55-1.3); PHOSPHOROUS 2.3 mg/dL (2.5-4.9)
[2023-12-07] MEDS ORDERED: KCL 10 MEQ IVPB 10 MEQ/100 ML INFUS.BAG IVPB ONE ×2 (21:11→22:34)
[2023-12-07] MEDS: KCL 10 MEQ IVPB 10 MEQ/100 ML INFUS.BAG IVPB SCH (22:38)
[2023-12-07] MEDS ORDERED: ATORVASTATIN CA 40 MG TABLET (FP) ONE (22:55)
[2023-12-07] MEDS: ATORVASTATIN CA 40 MG TABLET (FP) PO SCH (23:07)
[2023-12-08 09:22] LABS: BASO % 0.2 % (0-2.0); EOS % 0.9 % (0-4.5); HEMATOCRIT 24.7 % (32.4-45.2); HEMOGLOBIN 8.3 GM/dL (10.7-15.3); LYMPH % 31.9 % (8-40); MCH 35.3 pg (25.7-33.7); MCHC 33.6 g/dl (32.0-36.0); MEAN CELL VOLUME 104.9 fl (80-96); MEAN PLT VOLUME 10.9 fl (7.5-11.1); PLATELET COUNT 88 10^3/uL (134-434); RBC 2.36 M/mm3 (3.60-5.2); RDW 15.2 % (11.6-15.6); WHITE BLOOD COUNT 5.4 K/mm3 (4.0-10.0)
[2023-12-08 09:42] LABS: POTASSIUM 3.6 mmol/L (3.5-5.1)
[2023-12-08 09:51] LABS: BLOOD UREA NITROGEN 29.2 mg/dL (7-18); CALCIUM 7.7 mg/dL (8.5-10.1)
[2023-12-08 09:52] LABS: ALBUMIN 1.8 g/dl (3.4-5.0)
[2023-12-08 09:54] LABS: CREATININE 0.7 mg/dL (0.55-1.3)
[2023-12-08 09:56] LABS: BILIRUBIN,TOTAL 0.4 mg/dL (0.2-1); TOT PROT 5.7 g/dl (6.4-8.2)
[2023-12-08] MEDS: D5-1/2NS+40 MEQ KCL - 40 MEQ/1,000 ML INFUS.BAG IV SCH (09:58)
[2023-12-08] MEDS ORDERED: LOSARTAN POTASSIUM 50 MG TABLET PO SCH (10:00)
[2023-12-08] MEDS: metoPROLOL SUCCINATE 25 MG TAB.SR.24H (FP) PO SCH (10:07)
[2023-12-08] MEDS: amLODIPine BESYLATE 5 MG TABLET (FP) PO SCH (10:07)
[2023-12-08] MEDS: PANTOPRAZOLE 40 MG TABLET PO SCH (10:13)
[2023-12-08] MEDS: LIPASE/PROTEASE/AMYLASE 36,000 UNIT CAPSULE PO SCH (11:21)
[2023-12-08 13:01] LABS: RETICULOCYTES 2.56 % (0.5-1.5)
[2023-12-08] MEDS: MIRTAZAPINE 15 MG TABLET (FP) PO SCH (21:48)
[2023-12-09 09:25] LABS: POTASSIUM 4.6 mmol/L (3.5-5.1)
[2023-12-09 09:27] LABS: BASO % 0.3 % (0-2.0); HEMATOCRIT 21.6 % (32.4-45.2); HEMOGLOBIN 7.2 GM/dL (10.7-15.3); LYMPH % 30.1 % (8-40); MCH 35.8 pg (25.7-33.7); MCHC 33.5 g/dl (32.0-36.0); MEAN PLT VOLUME 10.4 fl (7.5-11.1); MONO % 14.3 % (3.8-10.2); NEUT % 54.3 % (42.8-82.8); PLATELET COUNT 121 10^3/uL (134-434); RBC 2.02 M/mm3 (3.60-5.2); RDW 15.6 % (11.6-15.6); WHITE BLOOD COUNT 5.2 K/mm3 (4.0-10.0)
[2023-12-09 09:33] LABS: MAGNESIUM 1.1 mg/dL (1.8-2.4)
[2023-12-09 09:34] LABS: ALBUMIN 1.6 g/dl (3.4-5.0); CALCIUM 7.4 mg/dL (8.5-10.1)
[2023-12-09 09:35] LABS: BLOOD UREA NITROGEN 24.3 mg/dL (7-18)
[2023-12-09 09:36] LABS: PHOSPHOROUS 2.4 mg/dL (2.5-4.9)
[2023-12-09 09:37] LABS: CREATININE 0.8 mg/dL (0.55-1.3)
[2023-12-09 09:39] LABS: BILIRUBIN,TOTAL 0.3 mg/dL (0.2-1); TOT PROT 4.9 g/dl (6.4-8.2)
[2023-12-09 15:02] LABS: ANISOCYTOSIS 1+; MACROCYTOSIS 1+
[2023-12-10] MEDS: ACETAMINOPHEN 325 MG TABLET (FP) PO PRN (00:32)
[2023-12-10 12:48] LABS: CHLORIDE 111 mmol/L (98-107); SODIUM 136 mmol/L (136-145)
[2023-12-10 12:51] LABS: BLOOD UREA NITROGEN 26.6 mg/dL (7-18); CO2 15 mmol/L (21-32); GLUCOSE,RANDOM 186 mg/dL (74-106)
[2023-12-10 12:54] LABS: CREATININE 0.9 mg/dL (0.55-1.3); SGOT/AST 20 U/L (15-37); SGPT/ALT 12 U/L (13-61)
[2023-12-10 12:56] LABS: BILIRUBIN,TOTAL 0.7 mg/dL (0.2-1); TOT PROT 6.2 g/dl (6.4-8.2)
[2023-12-10 12:57] LABS: ALBUMIN 1.9 g/dl (3.4-5.0); ALK PHOS 199 U/L (45-117); ANION GAP 10 mmol/L (4-13); POTASSIUM 6.1 mmol/L (3.5-5.1)
[2023-12-10 21:57] LABS: POTASSIUM 5.4 mmol/L (3.5-5.1)
[2023-12-10 21:58] LABS: CALCIUM 7.4 mg/dL (8.5-10.1)
[2023-12-10 21:59] LABS: BLOOD UREA NITROGEN 27.6 mg/dL (7-18)
[2023-12-10] MEDS: DEXTROSE 5%-0.45% SALINE 1,000 ML IV SCH (22:54)
[2023-12-11 09:51] LABS: BASO % 0.2 % (0-2.0); EOS % 1.3 % (0-4.5); LYMPH % 30.2 % (8-40); MCH 33.5 pg (25.7-33.7); MCHC 33.4 g/dl (32.0-36.0); MEAN CELL VOLUME 100.4 fl (80-96); MEAN PLT VOLUME 8.7 fl (7.5-11.1); MONO % 14.5 % (3.8-10.2); NEUT % 53.8 % (42.8-82.8); PLATELET COUNT 225 10^3/uL (134-434); RBC 2.69 M/mm3 (3.60-5.2); RDW 21.2 % (11.6-15.6); WHITE BLOOD COUNT 5.9 K/mm3 (4.0-10.0)
[2023-12-11 10:15] LABS: POTASSIUM 4.6 mmol/L (3.5-5.1)
[2023-12-11 10:29] LABS: CALCIUM 7.7 mg/dL (8.5-10.1); CREATININE 0.8 mg/dL (0.55-1.3)
[2023-12-11 10:30] LABS: BLOOD UREA NITROGEN 25.5 mg/dL (7-18)
[2023-12-11 10:31] LABS: BILIRUBIN,TOTAL 0.2 mg/dL (0.2-1); TOT PROT 5.2 g/dl (6.4-8.2)
[2023-12-11 10:42] LABS: ALBUMIN 1.5 g/dl (3.4-5.0)
[2023-12-12 10:51] LABS: METHADONE, UR NEGATIVE (NEGATIVE); URINE AMPHETAMINES NEGATIVE (NEGATIVE)
[2023-12-12 10:52] LABS: COCAINE, UR NEGATIVE (NEGATIVE); OPIATES, URI NEGATIVE (NEGATIVE); URINE BARBITURATES NEGATIVE (NEGATIVE)
[2023-12-12 10:53] LABS: PHENCYCLIDINE,URINE NEGATIVE (NEGATIVE); URINE BENZODIAZEPINES NEGATIVE (NEGATIVE)
[2023-12-12 18:09] LABS: FREE KAPPA,SERUM 82.2 mg/L (3.3-19.4)
[2023-12-13 17:07] LABS: IG A QN SERUM. 339 mg/dL (87-352)
[2023-12-13 22:58] VITALS: RESP 18
[2023-12-14 06:20] VITALS: BP 124/92; PULSE 98; TEMP 98.6
[2023-12-14 15:11] VITALS: BMI 12.6
== END 2023-12-14 14:00 | DRG 438 ==
LOC: JER 14:04 → INTOOBSV 20:41 → JERBED 20:41 → OBSVTOIN 12-07 09:27 → J8W 12-08
PROVIDERS: ADMIT Internal Medicine; ATTEND Internal Medicine
DX: K86.1 Other chronic pancreatitis (principal); E43 Unspecified severe protein-calorie malnutrition; F10.239 Alcohol dependence with withdrawal, unspecified; Z68.1 Body mass index [BMI] 19.9 or less, adult; I50.32 Chronic diastolic (congestive) heart failure; R64 Cachexia; K86.2 Cyst of pancreas; J90 Pleural effusion, not elsewhere classified; F41.8 Other specified anxiety disorders; R80.9 Proteinuria, unspecified; K86.0 Alcohol-induced chronic pancreatitis; I11.0 Hypertensive heart disease with heart failure; R62.7 Adult failure to thrive; I25.10 Atherosclerotic heart disease of native coronary artery without angina pectoris; E78.5 Hyperlipidemia, unspecified; K21.9 Gastro-esophageal reflux disease without esophagitis; D64.9 Anemia, unspecified; E88.09 Other disorders of plasma-protein metabolism, not elsewhere classified; Z95.1 Presence of aortocoronary bypass graft; Z95.2 Presence of prosthetic heart valve
CPT/HCPCS: 0241U-QW; 36415; 36430; 71045-TC-FY; 74183-TC; 80048; 80053; 80061; 80307; 81003; 82136; 82272; 82533; 82570; 82607; 82728; 82747; 82784; 83036; 83540; 83550; 83605; 83615; 83690; 83735; 83880; 83883; 83918; 84100; 84155; 84156; 84165; 84439; 84443; 84484; 85014; 85025; 85045; 85610; 85730; 86301; 86850; 86900; 86901; 86922; 87635; 93005; 93010; 93306-TC; 97116-GP; 97161-GP; 99285-25; G0378; P9038; P9058

== ENCOUNTER 2023-12-19 11:50 | Inpatient (IN) | payer OTHER ==
[2023-12-19 14:06] LABS: BASO % 0.3 % (0-2.0); EOS % 1.1 % (0-4.5); HEMATOCRIT 27.9 % (32.4-45.2); HEMOGLOBIN 9.4 GM/dL (10.7-15.3); LYMPH % 22.5 % (8-40); MCH 33.9 pg (25.7-33.7); MCHC 33.6 g/dl (32.0-36.0); MEAN CELL VOLUME 100.9 fl (80-96); MONO % 6.3 % (3.8-10.2); NEUT % 69.8 % (42.8-82.8); PLATELET COUNT 247 10^3/uL (134-434); RBC 2.77 M/mm3 (3.60-5.2); RDW 19.3 % (11.6-15.6); WHITE BLOOD COUNT 8.9 K/mm3 (4.0-10.0)
[2023-12-19 14:13] LABS: INR 1.02 (0.83-1.09); PROTHROMBIN TIME (PATIENT) 11.7 SEC (9.7-13.0)
[2023-12-19 14:15] LABS: ACTIVATED PTT 36.7 SECONDS (25.2-36.5)
[2023-12-19] MEDS: SODIUM CHLORIDE 1,000 ML IV SCH (14:16)
[2023-12-19 14:28] LABS: POTASSIUM 3.8 mmol/L (3.5-5.1)
[2023-12-19 14:31] LABS: ALBUMIN 1.7 g/dl (3.4-5.0)
[2023-12-19 14:32] LABS: BLOOD UREA NITROGEN 29.3 mg/dL (7-18)
[2023-12-19 14:34] LABS: CREATININE 0.8 mg/dL (0.55-1.3)
[2023-12-19 14:36] LABS: BILIRUBIN,TOTAL 0.3 mg/dL (0.2-1)
[2023-12-19 20:01] LABS: EPI CELLS 28 /uL (0-25.1); HYALINE CASTS 1 /uL (0-3.1); URINE APPEARANCE CLOUDY; URINE BACTERIA >9,000 /uL (0-1359); URINE BILIRUBIN NEGATIVE (NEGATIVE); URINE COLOR YELLOW; URINE GLUCOSE (UA) NEGATIVE (NEGATIVE); URINE KETONE NEGATIVE (NEGATIVE); URINE LEUK ESTERASE 3+ (NEGATIVE); URINE NITRITE POSITIVE (NEGATIVE); URINE PROTEIN TRACE (NEGATIVE); URINE UROBILINOGEN 0.2 mg/dL (0.2-1.0); URINE WBC 46 /uL (0-25.8)
[2023-12-19 20:24] LABS: URINE RBC 259.4 /uL (0-23.9); YEAST FEW (NEGATIVE)
[2023-12-19] MEDS ORDERED: CEFTRIAXONE 1 GM/50 ML BAG ONE (21:12)
[2023-12-19] MEDS: CEFTRIAXONE 1,000 MG in DEXTROSE 5%-WATER - 50 ML IVPB ONE (21:20)
[2023-12-19] MEDS: SODIUM CHLORIDE 500 ML IV STA ×2 (22:06→23:20)
[2023-12-19] MEDS: VANCOMYCIN/WATER FOR INJ (PEG) 750 MG/150 ML BAG IVPB ONE (23:20)
[2023-12-20] MEDS ORDERED: PANTOPRAZOLE 20 MG TABLET PO ONE (07:06)
[2023-12-20] MEDS: PANTOPRAZOLE 20 MG TABLET PO SCH (07:16)
[2023-12-20 11:31] VITALS: BMI 13.3
[2023-12-20] MEDS: LIPASE/PROTEASE/AMYLASE 36,000 UNIT CAPSULE PO SCH (11:35)
[2023-12-20] MEDS: CEFTRIAXONE 1 GM in DEXTROSE 5%-WATER - 50 ML IVPB SCH (12:32)
[2023-12-20 12:43] LABS: BASO % 0.2 % (0-2.0); EOS % 0.2 % (0-4.5); HEMATOCRIT 26.4 % (32.4-45.2); HEMOGLOBIN 8.5 GM/dL (10.7-15.3); LYMPH % 9.9 % (8-40); MCH 32.6 pg (25.7-33.7); MEAN CELL VOLUME 101.6 fl (80-96); MEAN PLT VOLUME 7.9 fl (7.5-11.1); MONO % 4.8 % (3.8-10.2); NEUT % 84.9 % (42.8-82.8); PLATELET COUNT 235 10^3/uL (134-434); RDW 18.8 % (11.6-15.6); WHITE BLOOD COUNT 15.9 K/mm3 (4.0-10.0)
[2023-12-20 13:06] LABS: POTASSIUM 3.5 mmol/L (3.5-5.1)
[2023-12-20 13:08] LABS: CALCIUM 7.3 mg/dL (8.5-10.1)
[2023-12-20 13:09] LABS: BLOOD UREA NITROGEN 26.7 mg/dL (7-18)
[2023-12-20] MEDS: FENOFIBRIC ACID 45 MG CAP PO SCH (13:32)
[2023-12-20] MEDS: PANTOPRAZOLE 40 MG TABLET PO SCH (18:18)
[2023-12-20] MEDS: ASPIRIN 81 MG CHEWABLE TABLETS PO SCH (18:18)
[2023-12-20] MEDS: ATORVASTATIN CA 40 MG TABLET (FP) PO SCH (22:11)
[2023-12-20] MEDS: MIRTAZAPINE 15 MG TABLET (FP) PO SCH (22:11)
[2023-12-20] MEDS: VANCOMYCIN/WATER FOR INJ (PEG) 750 MG/150 ML BAG IVPB SCH (23:02)
[2023-12-21 07:34] LABS: BASO % 0.6 % (0-2.0); EOS % 2.2 % (0-4.5); HEMATOCRIT 22.4 % (32.4-45.2); HEMOGLOBIN 7.4 GM/dL (10.7-15.3); LYMPH % 23.1 % (8-40); MCH 33.2 pg (25.7-33.7); MCHC 33.1 g/dl (32.0-36.0); MEAN CELL VOLUME 100.4 fl (80-96); MEAN PLT VOLUME 8.2 fl (7.5-11.1); MONO % 6.5 % (3.8-10.2); NEUT % 67.6 % (42.8-82.8); PLATELET COUNT 235 10^3/uL (134-434); RBC 2.24 M/mm3 (3.60-5.2); RDW 18.8 % (11.6-15.6); WHITE BLOOD COUNT 8.4 K/mm3 (4.0-10.0)
[2023-12-21 07:50] LABS: CHLORIDE 121 mmol/L (98-107); POTASSIUM 3.3 mmol/L (3.5-5.1); SODIUM 147 mmol/L (136-145)
[2023-12-21 07:58] LABS: ALBUMIN 1.5 g/dl (3.4-5.0); BLOOD UREA NITROGEN 28.3 mg/dL (7-18); CREATININE 1.1 mg/dL (0.55-1.3)
[2023-12-21 07:59] LABS: CALCIUM 7.2 mg/dL (8.5-10.1)
[2023-12-21 08:00] LABS: ANION GAP 7 mmol/L (4-13); BILIRUBIN,TOTAL 0.2 mg/dL (0.2-1); CO2 19 mmol/L (21-32); MAGNESIUM 1.2 mg/dL (1.8-2.4)
[2023-12-21 08:01] LABS: SGOT/AST 13 U/L (15-37); SGPT/ALT 7 U/L (13-61)
[2023-12-21 08:52] LABS: ALK PHOS 108 U/L (45-117); GLUCOSE,RANDOM 49 mg/dL (74-106)
[2023-12-21] MEDS: FUROSEMIDE 40 MG/4 ML INJECTABLE VIAL IVPUSH ONE (10:06)
[2023-12-21] MEDS: GABAPENTIN 300 MG CAPSULE PO SCH (10:07)
[2023-12-21] MEDS: IRON SUCROSE INJECTION 200 MG in SODIUM CHLORIDE 100 ML IVPB ONE (10:10)
[2023-12-21] MEDS: VANCOMYCIN/WATER FOR INJ (PEG) 1,000 MG/200 ML BAG IVPB ONE (16:57)
[2023-12-22] MEDS: ASPIRIN 81 MG CHEWABLE TABLETS PO SCH (10:53)
[2023-12-22] MEDS: metoPROLOL SUCCINATE 25 MG TAB.SR.24H (FP) PO SCH (11:01)
[2023-12-22 18:28] LABS: BASO % 0.2 % (0-2.0); EOS % 1.7 % (0-4.5); HEMATOCRIT 27.2 % (32.4-45.2); HEMOGLOBIN 9.2 GM/dL (10.7-15.3); LYMPH % 19.3 % (8-40); MCH 32.4 pg (25.7-33.7); MCHC 34.1 g/dl (32.0-36.0); MEAN CELL VOLUME 95.1 fl (80-96); MEAN PLT VOLUME 7.8 fl (7.5-11.1); MONO % 6.1 % (3.8-10.2); NEUT % 72.7 % (42.8-82.8); PLATELET COUNT 267 10^3/uL (134-434); RBC 2.86 M/mm3 (3.60-5.2); RDW 19.3 % (11.6-15.6); WHITE BLOOD COUNT 9.2 K/mm3 (4.0-10.0)
[2023-12-22 19:09] LABS: CALCIUM 7.2 mg/dL (8.5-10.1)
[2023-12-22 19:10] LABS: ALBUMIN 1.5 g/dl (3.4-5.0); BLOOD UREA NITROGEN 20.5 mg/dL (7-18)
[2023-12-22 19:13] LABS: CREATININE 1.2 mg/dL (0.55-1.3)
[2023-12-22 19:14] LABS: BILIRUBIN,TOTAL 0.2 mg/dL (0.2-1); TOT PROT 5.3 g/dl (6.4-8.2)
[2023-12-22] MEDS: MAGNESIUM SULF 50% (8.12 MEQ/2 ML-1 GM VIAL) IVPB ONE (21:47)
[2023-12-22] MEDS: POTASSIUM CHLORIDE ORAL LIQUID 20 MEQ/15 ML PO ONE (21:47)
[2023-12-22] MEDS: KCL 10 MEQ IVPB 10 MEQ/100 ML INFUS.BAG IVPB SCH (23:08)
[2023-12-23] MEDS: VANCOMYCIN/WATER FOR INJ (PEG) 750 MG/150 ML BAG IVPB SCH (00:10)
[2023-12-23 07:49] LABS: BASO % 0.4 % (0-2.0); EOS % 1.6 % (0-4.5); HEMATOCRIT 31.2 % (32.4-45.2); HEMOGLOBIN 10.5 GM/dL (10.7-15.3); LYMPH % 23.1 % (8-40); MCH 32.8 pg (25.7-33.7); MCHC 33.7 g/dl (32.0-36.0); MEAN CELL VOLUME 97.3 fl (80-96); MEAN PLT VOLUME 7.8 fl (7.5-11.1); MONO % 6.3 % (3.8-10.2); NEUT % 68.6 % (42.8-82.8); PLATELET COUNT 291 10^3/uL (134-434); RBC 3.21 M/mm3 (3.60-5.2); RDW 19.6 % (11.6-15.6); WHITE BLOOD COUNT 8.4 K/mm3 (4.0-10.0)
[2023-12-23 08:08] LABS: POTASSIUM 3.7 mmol/L (3.5-5.1)
[2023-12-23 08:19] LABS: CALCIUM 7.4 mg/dL (8.5-10.1)
[2023-12-23 08:20] LABS: ALBUMIN 1.6 g/dl (3.4-5.0); BLOOD UREA NITROGEN 20.4 mg/dL (7-18)
[2023-12-23 08:22] LABS: CREATININE 0.9 mg/dL (0.55-1.3)
[2023-12-23 08:24] LABS: BILIRUBIN,TOTAL 0.3 mg/dL (0.2-1)
[2023-12-23] MEDS: amLODIPine BESYLATE 2.5 MG TABLET (FP) PO ONE (17:26)
[2023-12-23] MEDS: amLODIPine BESYLATE 5 MG TABLET (FP) PO ONE (18:01)
[2023-12-24 09:25] VITALS: BP 139/88; PULSE 94; RESP 18; TEMP 98.4
== END 2023-12-24 14:17 | DRG 64 ==
LOC: JER 11:50 → JERBED 20:07 → OBSVTOIN 12-20 09:24 → J4W 12-20 10:14
PROVIDERS: ADMIT Internal Medicine; ATTEND Family Medicine
DX: I63.89 Other cerebral infarction (principal); E43 Unspecified severe protein-calorie malnutrition; J69.0 Pneumonitis due to inhalation of food and vomit; E87.1 Hypo-osmolality and hyponatremia; N39.0 Urinary tract infection, site not specified; K86.1 Other chronic pancreatitis; R64 Cachexia; Z68.1 Body mass index [BMI] 19.9 or less, adult; R47.81 Slurred speech; E78.5 Hyperlipidemia, unspecified; I25.10 Atherosclerotic heart disease of native coronary artery without angina pectoris; Z95.1 Presence of aortocoronary bypass graft; I11.0 Hypertensive heart disease with heart failure; I50.9 Heart failure, unspecified; J44.9 Chronic obstructive pulmonary disease, unspecified; K21.9 Gastro-esophageal reflux disease without esophagitis; R62.7 Adult failure to thrive; Z95.2 Presence of prosthetic heart valve; D64.9 Anemia, unspecified; R29.704 NIHSS score 4; E88.09 Other disorders of plasma-protein metabolism, not elsewhere classified; G62.9 Polyneuropathy, unspecified; G40.909 Epilepsy, unspecified, not intractable, without status epilepticus; K29.50 Unspecified chronic gastritis without bleeding
CPT/HCPCS: 36415; 36430; 70450-TC; 70496-TC; 70498-TC; 70551-TC; 71045-TC-FY; 80048; 80053; 80061; 81003; 82140; 82550; 82607; 82728; 82962; 83036; 83540; 83550; 83735; 84100; 84443; 84484; 85025; 85610; 85730; 86780; 86850; 86900; 86901; 86922; 87040; 87899; 93005; 93010; 93880-TC; 97116-GP; 97162-GP; 99285-25; G0378; G0480; J1756; P9038; P9058; Q9967

== ENCOUNTER 2023-12-31 15:53 | Inpatient (IN) | payer OTHER ==
[2023-12-31 17:46] LABS: HEMATOCRIT 28.6 % (32.4-45.2); HEMOGLOBIN 9.4 GM/dL (10.7-15.3); MCH 31.9 pg (25.7-33.7); MEAN CELL VOLUME 96.8 fl (80-96); MEAN PLT VOLUME 7.8 fl (7.5-11.1); PLATELET COUNT 508 10^3/uL (134-434); RBC 2.96 M/mm3 (3.60-5.2); RDW 18.6 % (11.6-15.6); WHITE BLOOD COUNT 14.5 K/mm3 (4.0-10.0)
[2023-12-31 17:54] LABS: INR 0.91 (0.83-1.09); PROTHROMBIN TIME (PATIENT) 10.5 SEC (9.7-13.0); VENOUS BASE EXCESS -4.1 mmol/L (-2-2); VENOUS O2 SATURATION 77.4 % (70-80); VENOUS PCO2 37.5 mmHg (38-52); VENOUS PH 7.363 (7.310-7.410)
[2023-12-31 17:56] LABS: ACTIVATED PTT 30.4 SECONDS (25.2-36.5)
[2023-12-31 18:06] LABS: POTASSIUM 4.3 mmol/L (3.5-5.1)
[2023-12-31 18:08] LABS: BLOOD UREA NITROGEN 25.2 mg/dL (7-18); CALCIUM 8.2 mg/dL (8.5-10.1); MAGNESIUM 1.4 mg/dL (1.8-2.4)
[2023-12-31 18:11] LABS: CREATININE 1.4 mg/dL (0.55-1.3)
[2023-12-31 18:12] LABS: BILIRUBIN,TOTAL 0.2 mg/dL (0.2-1); TOT PROT 6.4 g/dl (6.4-8.2)
[2023-12-31 18:17] LABS: N-TERMINAL BNP 32110.4 pg/ml (5-125)
[2023-12-31 18:37] LABS: ALBUMIN 2.1 g/dl (3.4-5.0)
[2023-12-31 18:45] LABS: ANISOCYTOSIS 2+; MACROCYTOSIS 2+; TEAR DROP CELLS 1+
[2023-12-31] MEDS ORDERED: CEFTRIAXONE 1 GM/50 ML BAG ONE (18:46)
[2023-12-31] MEDS ORDERED: AZITHROMYCIN IVPB 500 MG/250 ML BAG IVPB ONE (18:53)
[2023-12-31] MEDS: SODIUM CHLORIDE 0.9% 500 ML INFUS.BAG IV ONE (18:57)
[2023-12-31] MEDS: CEFTRIAXONE 1,000 MG in DEXTROSE 5%-WATER - 50 ML IVPB ONE (18:57)
[2023-12-31] MEDS: AZITHROMYCIN IVPB 500 MG in DEXTROSE 5%-WATER - 250 ML IVPB ONE (19:26)
[2024-01-01] MEDS ORDERED: DOCUSATE SODIUM 100 MG CAPSULE (FP) PO PRN (04:14)
[2024-01-01] MEDS ORDERED: PANTOPRAZOLE 20 MG TABLET PO ONE (09:55)
[2024-01-01] MEDS ORDERED: ASPIRIN 81 MG CHEWABLE TABLETS ONE (09:55)
[2024-01-01] MEDS ORDERED: metoPROLOL SUCCINATE 25 MG TAB.SR.24H (FP) PO ONE (09:55)
[2024-01-01] MEDS ORDERED: CEFTRIAXONE 1 GM/50 ML BAG ONE (09:56)
[2024-01-01] MEDS ORDERED: AZITHROMYCIN IVPB 500 MG/250 ML BAG IVPB ONE (09:56)
[2024-01-01] MEDS: ASPIRIN 81 MG CHEWABLE TABLETS PO SCH (10:46)
[2024-01-01] MEDS: LIPASE/PROTEASE/AMYLASE 36,000 UNIT CAPSULE PO SCH (10:46)
[2024-01-01] MEDS: PANTOPRAZOLE 20 MG TABLET PO SCH (10:46)
[2024-01-01] MEDS: metoPROLOL SUCCINATE 25 MG TAB.SR.24H (FP) PO SCH (10:46)
[2024-01-01] MEDS: AZITHROMYCIN IVPB 500 MG/250 ML BAG IVPB SCH (10:47)
[2024-01-01] MEDS: CEFTRIAXONE 1 GM in DEXTROSE 5%-WATER - 50 ML IVPB SCH (10:48)
[2024-01-01] MEDS: guaiFENesin/D-METHORPHAN TAB.ER.12H PO SCH (10:56)
[2024-01-01] MEDS: FENOFIBRIC ACID 45 MG CAP PO SCH (10:56)
[2024-01-01] MEDS ORDERED: FUROSEMIDE 40 MG/4 ML INJECTABLE VIAL ONE (18:01)
[2024-01-01] MEDS: FUROSEMIDE 40 MG/4 ML INJECTABLE VIAL IVPUSH ONE (18:13)
[2024-01-01] MEDS ORDERED: ALBUTEROL SO4 0.083% IH SOL 2.5 MG/3 ML VIAL.NEB. NEB ONE (18:40)
[2024-01-01] MEDS: ALBUTEROL SO4 0.083% IH SOL 2.5 MG/3 ML VIAL.NEB. NEB PRN (18:46)
[2024-01-01] MEDS ORDERED: ATORVASTATIN CA 20 MG TABLET (FP) ONE (22:05)
[2024-01-01] MEDS: ATORVASTATIN CA 40 MG TABLET (FP) PO SCH (22:12)
[2024-01-01] MEDS: MIRTAZAPINE 15 MG TABLET (FP) PO SCH (22:12)
[2024-01-02 08:35] LABS: POTASSIUM 3.9 mmol/L (3.5-5.1)
[2024-01-02 08:44] LABS: BLOOD UREA NITROGEN 22.1 mg/dL (7-18); CALCIUM 8.3 mg/dL (8.5-10.1)
[2024-01-02 08:48] LABS: BILIRUBIN,TOTAL 0.2 mg/dL (0.2-1); TOT PROT 6.3 g/dl (6.4-8.2)
[2024-01-02 09:49] LABS: BASO % 0.2 % (0-2.0); EOS % 2.4 % (0-4.5); HEMATOCRIT 27.1 % (32.4-45.2); HEMOGLOBIN 9.2 GM/dL (10.7-15.3); LYMPH % 20.2 % (8-40); MCH 32.7 pg (25.7-33.7); MCHC 34.1 g/dl (32.0-36.0); MEAN PLT VOLUME 7.7 fl (7.5-11.1); MONO % 9.1 % (3.8-10.2); NEUT % 68.1 % (42.8-82.8); PLATELET COUNT 455 10^3/uL (134-434); RBC 2.83 M/mm3 (3.60-5.2); RDW 17.8 % (11.6-15.6); WHITE BLOOD COUNT 11.1 K/mm3 (4.0-10.0)
[2024-01-02] MEDS: methylPREDNISolone NA SUCC 40 MG/1 ML VIAL IVPUSH SCH (09:58)
[2024-01-02] MEDS: GABAPENTIN 300 MG CAPSULE PO SCH (09:59)
[2024-01-02] MEDS: amLODIPine BESYLATE 2.5 MG TABLET (FP) PO SCH (10:18)
[2024-01-02] MEDS: FUROSEMIDE 40 MG/4 ML INJECTABLE VIAL IVPUSH ONE (13:24)
[2024-01-02] MEDS ORDERED: ATORVASTATIN CA 20 MG TABLET (FP) ONE (21:40)
[2024-01-03 07:35] LABS: BASO % 0.2 % (0-2.0); EOS % 1.9 % (0-4.5); HEMATOCRIT 29.6 % (32.4-45.2); HEMOGLOBIN 9.6 GM/dL (10.7-15.3); LYMPH % 17.5 % (8-40); MCH 31.6 pg (25.7-33.7); MCHC 32.6 g/dl (32.0-36.0); MEAN CELL VOLUME 96.8 fl (80-96); MEAN PLT VOLUME 7.8 fl (7.5-11.1); MONO % 6.6 % (3.8-10.2); NEUT % 73.8 % (42.8-82.8); PLATELET COUNT 540 10^3/uL (134-434); RBC 3.05 M/mm3 (3.60-5.2); RDW 17.8 % (11.6-15.6); WHITE BLOOD COUNT 10.6 K/mm3 (4.0-10.0)
[2024-01-03 07:41] LABS: POTASSIUM 3.8 mmol/L (3.5-5.1)
[2024-01-03 07:45] LABS: CALCIUM 8.2 mg/dL (8.5-10.1)
[2024-01-03 07:46] LABS: BLOOD UREA NITROGEN 21.9 mg/dL (7-18)
[2024-01-03 07:50] LABS: BILIRUBIN,TOTAL 0.3 mg/dL (0.2-1); CREATININE 0.9 mg/dL (0.55-1.3); TOT PROT 6.3 g/dl (6.4-8.2)
[2024-01-03] MEDS: amLODIPine BESYLATE 2.5 MG TABLET (FP) PO ONE (12:19)
[2024-01-04 07:58] LABS: POTASSIUM 3.6 mmol/L (3.5-5.1)
[2024-01-04 08:02] LABS: ALBUMIN 1.8 g/dl (3.4-5.0)
[2024-01-04 08:03] LABS: BLOOD UREA NITROGEN 20.8 mg/dL (7-18)
[2024-01-04 08:05] LABS: CREATININE 0.9 mg/dL (0.55-1.3)
[2024-01-04 08:06] LABS: BILIRUBIN,TOTAL 0.2 mg/dL (0.2-1); TOT PROT 5.6 g/dl (6.4-8.2)
[2024-01-04 08:10] LABS: BASO % 0.3 % (0-2.0); EOS % 2.1 % (0-4.5); HEMATOCRIT 26.2 % (32.4-45.2); HEMOGLOBIN 8.7 GM/dL (10.7-15.3); LYMPH % 21.3 % (8-40); MCH 32.1 pg (25.7-33.7); MCHC 33.1 g/dl (32.0-36.0); MEAN PLT VOLUME 7.7 fl (7.5-11.1); MONO % 5.9 % (3.8-10.2); NEUT % 70.4 % (42.8-82.8); PLATELET COUNT 484 10^3/uL (134-434); RDW 17.5 % (11.6-15.6); WHITE BLOOD COUNT 10.4 K/mm3 (4.0-10.0)
[2024-01-04] MEDS: amLODIPine BESYLATE 5 MG TABLET (FP) PO SCH (11:00)
[2024-01-04] MEDS: FUROSEMIDE 40 MG TABLET (FP) PO ONE (11:57)
[2024-01-04] MEDS: predniSONE 20 MG TABLET (UD) PO ONE (17:08)
[2024-01-04] MEDS: AMOX TR/POT CLAV 875MG/125MG TABLETS (FP) PO ONE (17:08)
[2024-01-06 07:50] LABS: BASO % 0.1 % (0-2.0); EOS % 0.3 % (0-4.5); HEMATOCRIT 25.3 % (32.4-45.2); HEMOGLOBIN 8.4 GM/dL (10.7-15.3); LYMPH % 14.7 % (8-40); MCH 32.4 pg (25.7-33.7); MCHC 33.2 g/dl (32.0-36.0); MEAN CELL VOLUME 97.5 fl (80-96); MEAN PLT VOLUME 7.8 fl (7.5-11.1); MONO % 5.6 % (3.8-10.2); NEUT % 79.3 % (42.8-82.8); PLATELET COUNT 421 10^3/uL (134-434); RBC 2.59 M/mm3 (3.60-5.2); RDW 17.9 % (11.6-15.6); WHITE BLOOD COUNT 12.6 K/mm3 (4.0-10.0)
[2024-01-06 07:56] LABS: POTASSIUM 3.2 mmol/L (3.5-5.1)
[2024-01-06 07:59] LABS: ALBUMIN 2.1 g/dl (3.4-5.0); CALCIUM 8.5 mg/dL (8.5-10.1)
[2024-01-06 08:02] LABS: CREATININE 1.1 mg/dL (0.55-1.3)
[2024-01-06 08:04] LABS: BILIRUBIN,TOTAL 0.2 mg/dL (0.2-1); TOT PROT 6.3 g/dl (6.4-8.2)
[2024-01-06 13:08] VITALS: BMI 14.2
[2024-01-06] MEDS: POTASSIUM CHLORIDE ORAL LIQUID 20 MEQ/15 ML PO ONE (13:25)
[2024-01-06] MEDS: KCL 10 MEQ IVPB 10 MEQ/100 ML INFUS.BAG IVPB SCH (13:26)
[2024-01-06] MEDS ORDERED: FUROSEMIDE 40 MG/4 ML INJECTABLE VIAL ONE (15:21)
[2024-01-06] MEDS: methylPREDNISolone NA SUCC 40 MG/1 ML VIAL IVPUSH ONE (15:35)
[2024-01-06] MEDS: LEVALBUTEROL HCL 0.63 MG/3 ML VIAL.NEB. IH PRN (15:35)
[2024-01-06] MEDS: FUROSEMIDE 40 MG/4 ML INJECTABLE VIAL IVPUSH ONE (15:35)
[2024-01-06] MEDS: INSULIN ASPART SLIDING SCALE (NOVOLOG) 1 VIAL SQ SCH (17:01)
[2024-01-06] MEDS ORDERED: ALBUTEROL SO4 0.083% IH SOL 2.5 MG/3 ML VIAL.NEB. NEB PRN (17:04)
[2024-01-07 06:11] LABS: EPI CELLS 14 /uL (0-25.1); HYALINE CASTS 0 /uL (0-3.1); PH,URINE 6.5 (5.0-8.0); URINE APPEARANCE CLEAR; URINE BILIRUBIN NEGATIVE (NEGATIVE); URINE COLOR YELLOW; URINE GLUCOSE (UA) 2+ (NEGATIVE); URINE KETONE NEGATIVE (NEGATIVE); URINE LEUK ESTERASE NEGATIVE (NEGATIVE); URINE NITRITE POSITIVE (NEGATIVE); URINE PROTEIN NEGATIVE (NEGATIVE); URINE UROBILINOGEN 0.2 mg/dL (0.2-1.0); URINE WBC 21 /uL (0-25.8)
[2024-01-07 08:53] LABS: URINE BACTERIA 14.2 /uL (0-1359); URINE RBC 301.7 /uL (0-23.9); YEAST NEGATIVE (NEGATIVE)
[2024-01-07] MEDS: MULTIVITAMINS (DAILY MVI) TABLET (FP) PO SCH (09:11)
[2024-01-07] MEDS: POTASSIUM CHLORIDE ORAL LIQUID 20 MEQ/15 ML PO ONE (11:23)
[2024-01-07] MEDS ORDERED: ALPRAZolam 0.25 MG TABLET PO ONE (13:45)
[2024-01-07] MEDS ORDERED: FUROSEMIDE 40 MG/4 ML INJECTABLE VIAL ONE (16:58)
[2024-01-07] MEDS: FUROSEMIDE 40 MG/4 ML INJECTABLE VIAL IVPUSH ONE (17:00)
[2024-01-08] MEDS ORDERED: INSULIN ASPART SLIDING SCALE (NOVOLOG) 1 VIAL SQ ONE (06:21)
[2024-01-08 08:06] LABS: BASO % 0.1 % (0-2.0); EOS % 0.1 % (0-4.5); HEMATOCRIT 27.8 % (32.4-45.2); HEMOGLOBIN 9.2 GM/dL (10.7-15.3); LYMPH % 10.6 % (8-40); MCH 32.2 pg (25.7-33.7); MCHC 33.3 g/dl (32.0-36.0); MEAN CELL VOLUME 96.7 fl (80-96); MEAN PLT VOLUME 8.3 fl (7.5-11.1); MONO % 5.1 % (3.8-10.2); NEUT % 84.1 % (42.8-82.8); PLATELET COUNT 362 10^3/uL (134-434); RBC 2.87 M/mm3 (3.60-5.2); RDW 17.4 % (11.6-15.6); WHITE BLOOD COUNT 14.7 K/mm3 (4.0-10.0)
[2024-01-08 08:22] LABS: POTASSIUM 4.4 mmol/L (3.5-5.1)
[2024-01-08 08:30] LABS: ALBUMIN 2.4 g/dl (3.4-5.0); BLOOD UREA NITROGEN 39.4 mg/dL (7-18)
[2024-01-08 08:32] LABS: BILIRUBIN,TOTAL 0.3 mg/dL (0.2-1); CREATININE 1.3 mg/dL (0.55-1.3); TOT PROT 6.5 g/dl (6.4-8.2)
[2024-01-08] MEDS: ALPRAZolam 0.25 MG TABLET PO ONE (18:00)
[2024-01-09] MEDS: FUROSEMIDE 20 MG TABLET (FP) PO SCH (10:37)
[2024-01-09 11:49] VITALS: BP 134/81; PULSE 100; RESP 16; TEMP 97.6
== END 2024-01-09 16:48 | DRG 291 ==
LOC: JER 15:53 → JERBED 21:15 → J4W 01-01 20:51
PROVIDERS: ADMIT Internal Medicine; ATTEND Internal Medicine
PROC: 05H933Z Insertion of Infusion Device into Right Brachial Vein, Percutaneous Approach (ICD-10-PCS; principal; 2024-01-08)
DX: I11.0 Hypertensive heart disease with heart failure (principal); E43 Unspecified severe protein-calorie malnutrition; J18.9 Pneumonia, unspecified organism; I50.33 Acute on chronic diastolic (congestive) heart failure; N17.9 Acute kidney failure, unspecified; J44.1 Chronic obstructive pulmonary disease with (acute) exacerbation; Z68.1 Body mass index [BMI] 19.9 or less, adult; J44.0 Chronic obstructive pulmonary disease with (acute) lower respiratory infection; R64 Cachexia; I50.32 Chronic diastolic (congestive) heart failure; E78.5 Hyperlipidemia, unspecified; G40.909 Epilepsy, unspecified, not intractable, without status epilepticus; I25.10 Atherosclerotic heart disease of native coronary artery without angina pectoris; D64.9 Anemia, unspecified; R06.03 Acute respiratory distress; R62.7 Adult failure to thrive
CPT/HCPCS: 0241U-QW; 36415; 71045-TC-FY; 71250-TC; 80053; 81003; 82550; 82803; 82962; 83036; 83735; 83880; 84100; 84484; 85025; 85610; 85730; 87040; 93005; 93010; 93306-TC; 97116-GP; 97162-GP; 99285-25